=== PATIENT | female | born 1930 | race Caucasian/White ===

== ENCOUNTER 2016-04-30 20:57 | Inpatient (IN) | payer MEDICARE, OTHER ==
[~2016-04-30] VITALS: Ht 167.6 cm; Wt 77.2 kg
[~2016-04-30 20:57] MED LIST: ACET325T11 PO; AMLO10 PO; CALTCHW4 PO; DEPA250T2 PO; DIFFCHW PO; FERR50TA PO; FURO20 PO; LEVO175T2 PO; METO25 PO; NYST100010 SS; OMEP20TA PO; OXYB5TAB PO; PLAV75TA PO; POTA-243 PO; PRAV20TA PO; TAB-TAB PO; TRAZ50TA4 PO; ZYPR5TAB11 PO
[2016-04-30 21:50] LABS: MEAN CORPUSCULAR HGB CONC 29.7 % (32.0-36.0)
--- NOTE | 2016-04-30 21:52 | PD ---
HPI Chief Complaint: Abnormal labs Time Seen by Provider: 21:49 Travel History International Travel<30 days: No Contact w/Intl Traveler<30days: No Traveled to known affect area: No History of Present Illness HPI Patient is an 85 yo female long term resident transferred from [facility] for evaluation of abnormal labs. Patient is mildly agitated and at times combative with nursing staff. No history could be taken from the patient as she is nonverbal. She has a h/o dementia, stroke, hypothyroidism, htn, hypokalemia. Medical history is reviewed from long term records. Labs drawn today at [facility] labs reveal an elevated sodium- 182, chloride- 143, Cr 1.9, and BUN- 67. She was seen 03/03/16 for UTI at [facility] and at the time had a Na 140, Cl 102. Patient's mental status is believed to be unchanged from baseline according to reports from long term staff. Son notes pt usually says hi however hasn't for the past 3 days. He notes she drinks a few drank less than a few ounces of juice over the last 24 hours. Patient has decubitus ulcers over sacrum and both posterior heel. According to long term documentation she is full code. History Past Medical History PNEUMOCCOCAL Vaccine (Year): 3 Menopausal: Yes Social History Alcohol Use: Yes (OCCAS) Tobacco Use: No Allergies-Medications (Allergen,Severity, Reaction): Coded Allergies: Celecoxib (Verified Allergy, Unknown, 05/18/15) Sulfa (Verified Allergy, Unknown, 05/18/15) Aspirin (Verified Adverse Reaction, Intermediate, NOSE BLEEDS, 05/18/15) Thorazine (Verified Adverse Reaction, Intermediate, CRAMPS, 05/18/15) Reported Meds & Prescriptions Reported Meds & Active Scripts Active Zyprexa Zydis (Olanzapine) 5 Mg Tab 5 Mg PO BID 30 Days Depakote 250 mg (Divalproex Sodium) 250 Mg Tab 1 Tab PO BID Reported Mycostatin Susp (Nystatin) 500,000 U/5 Ml Susp 5 Ml SS QID Norvasc (Amlodipine Besylate) 10 Mg Tab 10 Mg PO DAILY Tommy-Sequels (Ferrous Fumarate) 50 Mg Tab 50 Mg PO DAILY Levothyroxine 175 mcg (Levothyroxine Sodium) 175 Mcg Tab 175 Mcg PO DAILY Plavix (Clopidogrel Bisulfate) 75 Mg Tab 75 Mg PO DAILY K-Dur (Potassium Chloride) 10 Meq Tabcr 10 Meq PO DAILY Metoprolol Tartrate 25 mg (Metoprolol Tartrate) 25 Mg Tab 25 Mg PO BID Diff-Stat (Probiotic Product) Chw 1 Tab PO TID Tylenol 325 Mg Tab (Acetaminophen) 325 Mg Tab 650 Mg PO Q6HR PRN Caltrate 600+D (Calcium Carbonate/Cholecalciferol) Chw 1 Tab PO DAILY Multivitamin (Multivitamins) 1 Tab Tab 1 Tab PO DAILY Omeprazole 20 mg (Omeprazole) 20 Mg Tab 20 Mg PO DAILY Lasix (Furosemide) Tab 20 Mg PO DAILY Pravachol 20 Mg Tab 20 Mg PO DAILY Oxybutynin Chloride 5 Mg Tab 5 Mg PO BID Trazodone Hcl (Trazodone HCl) 50 Mg Tab 50 Mg PO HS Review of Systems ROS Limitations: Clinical Condition (dementia), Unresponsive Except as stated in HPI: all other systems reviewed are Neg Physical Exam Exam Limitations: Clinical Condition (Dementia) Narrative GENERAL: Awake, alert, unresponsive to verbal commands, mildly agitated SKIN: Warm and dry. Eschars on posterior heels BL and sacrum, wrapped and dressed with topicals HEAD: Atraumatic. Normocephalic. EYES: Pupils equal and round. No scleral icterus. No injection or drainage. ENT: No nasal bleeding or discharge. Mucous membranes pink and moist. NECK: Trachea midline. No JVD. CARDIOVASCULAR: Regular rate and rhythm. RESPIRATORY: No accessory muscle use. Clear to auscultation. Breath sounds equal bilaterally. GASTROINTESTINAL: Abdomen soft, non-tender, nondistended. Hepatic and splenic margins not palpable. MUSCULOSKELETAL: Extremities without clubbing, cyanosis, or edema. No obvious deformities. NEUROLOGICAL: Awake. Somewhat interactive. Attempts to punch care providers. Non -verbal. PSYCHIATRIC: Nonverbal, mildly agitated, patient's baseline is unclear Data Data Last Documented VS Vital Signs Date Time Temp Pulse Resp B/P Pulse Ox O2 Delivery O2 Flow Rate FiO2 04/30/16 22:29 56 16 96 Nasal Cannula 2 04/30/16 22:26 97.9 101/56 Orders Basic Metabolic Panel (Bmp) (04/30/16 21:49) Complete Blood Count With Diff (04/30/16 21:49) Urinalysis - C+S If Indicated (04/30/16 21:49) Iv Access Insert/Monitor (04/30/16 21:49) Ecg Monitoring (04/30/16 21:49) Oximetry (04/30/16 21:49) Sodium Chloride 0.9% Flush (Ns Flush) (04/30/16 22:00) Urinary Catheter Insert/Apply (04/30/16 21:52) Electrocardiogram (04/30/16 ) Dextrose 5% In [place] 1000ml Inj (D5w 1000 (04/30/16 22:15) Chest, Single Ap (04/30/16 ) Urine Culture (04/30/16 23:25) Ceftriaxone Inj (Rocephin Inj) (04/30/16 23:45) Admit Order (Ed Use Only) (04/30/16 23:42) Labs Laboratory Tests Test 04/30/16 04/30/16 22:10 23:25 White Blood Count 13.8 TH/MM3 Red Blood Count 3.66 MIL/MM3 Hemoglobin 10.8 GM/DL Hematocrit 36.2 % Mean Corpuscular Volume 98.8 FL Mean Corpuscular Hemoglobin 29.4 PG Mean Corpuscular Hemoglobin 29.7 % Concent Red Cell Distribution Width 21.1 % Platelet Count 149 TH/MM3 Mean Platelet Volume 10.4 FL Neutrophils (%) (Auto) 78.7 % Lymphocytes (%) (Auto) 12.2 % Monocytes (%) (Auto) 7.4 % Eosinophils (%) (Auto) 1.3 % Basophils (%) (Auto) 0.4 % Neutrophils # (Auto) 10.8 TH/MM3 Lymphocytes # (Auto) 1.7 TH/MM3 Monocytes # (Auto) 1.0 TH/MM3 Eosinophils # (Auto) 0.2 TH/MM3 Basophils # (Auto) 0.1 TH/MM3 CBC Comment DIFF FINAL Differential Comment Sodium Level 183 MEQ/L Potassium Level 4.7 MEQ/L Chloride Level 147 MEQ/L Carbon Dioxide Level 29.9 MEQ/L Anion Gap 6 MEQ/L Blood Urea Nitrogen 67 MG/DL Creatinine 2.02 MG/DL Estimat Glomerular Filtration 24 ML/MIN Rate Random Glucose 93 MG/DL Calcium Level 8.4 MG/DL Urine Color YELLOW Urine Turbidity HAZY Urine pH 8.0 Urine Specific [place] 1.018 Urine Protein 30 mg/dL Urine Glucose (UA) NEG mg/dL Urine Ketones NEG mg/dL Urine Occult Blood NEG Urine Nitrite POS Urine Bilirubin NEG Urine Urobilinogen LESS THAN 2.0 MG/DL Urine Leukocyte Esterase LARGE Urine RBC 4 /hpf Urine WBC 23 /hpf Urine Squamous Epithelial <1 /hpf Cells Urine Transitional Epithelial <1 /hpf Cells Urine Triple Phosphate OCC /hpf Crystals Urine Bacteria MOD /hpf Urine Mucus FEW /lpf Microscopic Urinalysis Comment CULTURE INDICATED MDM Medical Decision Making Medical Screen Exam Complete: Yes Emergency Medical Condition: Yes Medical Record Reviewed: Yes Differential Diagnosis Hypernatremia, Diabetes insipidus, Renal Failure, UTI Narrative Course Pt appears reasonably comfortable. Repeat CBC BMP ordered. Will administer D5W with 1/2 NS and evaluate response. Will check U/A and EKG for abnormalities. CBC & BMP Diagram 04/30/16 22:10 Neutrophils 78.7% 11 months prior Cr was 0.85 and BUN was 67 The patient will be admitted for management of hypernatremia. She also has a UTI, Rocephin started. The patient was started on D5W at 84 mL/h. Case discussed with Dr Recinos. Diagnosis Primary Impression: Hypernatremia Additional Impressions: Dehydration Acute renal failure Qualified Code: N17.9 - Acute renal failure, unspecified acute renal failure type Admitting Information Admitting Physician Requests: Admit Jaswant Stevens MD Apr 30, 2016 21:51
[2016-04-30] MEDS ORDERED: SODIUM CHLORIDE 0.9% FLUSH 5 ML FLUSH IVF PRN (22:00)
[2016-04-30 22:26] VITALS: BP 101/56; PULSE 55; RESP 16; TEMP 97.9; O2SAT 95
[2016-04-30 22:29] VITALS: RESP 18
[2016-04-30 22:37] LABS: AUTOMATED NEUTROPHIL # 10.8 TH/MM3 (1.8-7.7); BASOPHIL # 0.1 TH/MM3 (0-0.2); BASOPHIL % 0.4 % (0.0-2.0); EOSINOPHIL # 0.2 TH/MM3 (0-0.4); EOSINOPHIL % 1.3 % (0.0-4.0); HEMATOCRIT 36.2 % (35.0-46.0); HEMO FLAGS DIFF FINAL; LYMPH % 12.2 % (9.0-44.0); LYMPHOCYTE # 1.7 TH/MM3 (1.0-4.8); MEAN CELL VOLUME 98.8 FL (80.0-100.0); MEAN CORPUSCULAR HEMOGLOBIN 29.4 PG (27.0-34.0); MONO % 7.4 % (0.0-8.0); NEUT % 78.7 % (16.0-70.0); PLATELET COUNT 149 TH/MM3 (150-450); RED BLOOD COUNT 3.66 MIL/MM3 (4.00-5.30); RED CELL DISTRIBUTION WIDTH 21.1 % (11.6-17.2); WHITE BLOOD COUNT 13.8 TH/MM3 (4.0-11.0)
[2016-04-30 22:55] LABS: BICARBONATE 29.9 MEQ/L (21.0-32.0); POTASSIUM 4.7 MEQ/L (3.5-5.1)
[2016-04-30] MEDS: DEXTROSE 5% IN WATE 1000ML INJ 1,000 ML IV SCH (23:28)
[2016-04-30 23:35] LABS: BACTERIA, URINE MOD /hpf; BLOOD, URINE NEG (NEG); COMMENT (UR) CULTURE INDICATED; CULTURE IF INDICATED CULTURE INDICATED; GLUCOSE,URINE NEG (NEG); KETONE, URINE NEG (NEG); MUCUS URINE FEW /lpf (OCC); NITRITE,URINE POS (NEG); SQUAMOUS EPITHELIAL CELL URINE <1 /hpf (0-5); TRANSITIONAL EPI CELLS, URINE <1 /hpf; TRIPLE PHOSPHATE CRYSTAL,URINE OCC /hpf; URINE COLOR YELLOW (YELLW/STRAW)
[2016-04-30] MEDS ORDERED: cefTRIAXone INJ 1,000 MG in SODIUM CHLORIDE 0.9% INJ 100 ML IV ONE (23:45)
[2016-05-01] VITALS (10 sets, daily range): BP systolic 95–142; BP diastolic 48–70; PULSE 56–98; RESP 16–22; TEMP 96.2–98.1; O2SAT 93–100
--- NOTE | 2016-05-01 00:18 | RADRPT ---
EXAM DATE/TIME: 04/30/2016 23:51 [place] COMPARISON: CHEST SINGLE AP, September 01, 2012, 19:51. INDICATIONS : Evaluate for aspiration. MEDICAL HISTORY : Stroke. SURGICAL HISTORY : None. ENCOUNTER: Initial ACUITY: 1 day PAIN SCORE: Non-responsive. LOCATION: Bilateral chest FINDINGS: There appears to be a small patchy infiltrate in the peripheral right upper lung. Otherwise, the rest of the lungs are grossly clear. No definite pleural effusions. Heart size is stable. There is no payton dence of pneumothorax. CONCLUSION: New Small patchy infiltrate in the peripheral right upper lung. This could indicate aspiration pneumo terrance. Recommend followup chest x-ray in approximately 2-3 weeks to ensure resolution. If this has not resolved in approximately 3 weeks after appropriate medical therapy, then a CT scan of the chest coul d be performed for further evaluation on a nonemergent outpatient basis.. Luis Fernando Black MD on May 01, 2016 at 0:14 Board Certified Radiologist. This report was verified electronically.
[2016-05-01] MEDS ORDERED: LORA-392 PO (00:38)
[2016-05-01] MEDS ORDERED: [UNRECOGNIZED DRUG - CODE] CHEW (00:38)
[2016-05-01] MEDS ORDERED: PRAV10TA PO (00:38)
[2016-05-01] MEDS ORDERED: ZINC220T PO (00:38)
[2016-05-01] MEDS ORDERED: COLA100C3 PO (00:38)
[2016-05-01] MEDS ORDERED: METO25TA3 PO (00:38)
[2016-05-01] MEDS ORDERED: DIVA250T PO (00:38)
[2016-05-01] MEDS ORDERED: MULT-135 PO (00:38)
[2016-05-01] MEDS ORDERED: REME15TA PO (00:38)
[2016-05-01] MEDS ORDERED: LEVA500T PO (00:38)
[2016-05-01] MEDS ORDERED: POTA10CA PO (00:38)
[2016-05-01] MEDS ORDERED: AMLO5TAB2 PO (00:38)
[2016-05-01] MEDS ORDERED: TRAZ50TA12 PO (00:38)
[2016-05-01] MEDS ORDERED: ALBU0.63 NEB (00:38)
[2016-05-01] MEDS ORDERED: LEVO175T2 PO (00:38)
[2016-05-01] MEDS ORDERED: CLOP75TA PO (00:38)
[2016-05-01] MEDS ORDERED: FURO1TAB62 PO (00:38)
[2016-05-01] MEDS ORDERED: OMEP20TA PO (00:38)
[2016-05-01] MEDS ORDERED: AZITHROMYCIN INJ 500 MG in SODIUM CHLOR 0.9% 250 ML INJ 250 ML IV SCH (02:15)
[2016-05-01] MEDS ORDERED: SENNOSIDES 8.6 MG TAB PO PRN (02:15)
[2016-05-01] MEDS ORDERED: SODIUM CHLORIDE 0.9% FLUSH 5 ML FLUSH FLUSH PRN (02:15)
[2016-05-01] MEDS ORDERED: NALOXONE HCL 0.4 MG/ML AMP IV PRN (02:15)
[2016-05-01] MEDS ORDERED: ACETAMINOPHEN 325 MG TAB PO PRN ×2 (02:15)
--- NOTE | 2016-05-01 03:09 | HHI.HP ---
[facility] Admission Diagnosis HyperNa, AMS, AMBROSIO Diagnoses: Chief Complaint: Altered mental status Travel History International Travel<30 Days: No Contact w/Intl Traveler <30 Da: No Traveled to Known Affected Are: No Sepsis Criteria SIRS Criteria (2 or more): WBC > 88543, < 4000 or > 10% bands History of Present Illness The patient is an 85-year-old female with past medical history of dementia who is presenting to the hospital from her assisted facility for worsening mental status and abnormal labs. The patient has been speaking less than usual. She has been acting withdrawn. She was unable to give a history but her son was at the bedside and tried to explain the patient's recent pattern of hospitalization and assisted facilities. The patient's son said that staff at the [place] [facility] were concerned that the patient was silently aspirating. He reports that the patient has not been eating or drinking well lately. He says that the patient has been hospitalized for high sodium levels in the past. The patient's son has thought about the patient obtaining a feeding tube but he does not seem to want to pursue that option at this time. He mentions that the patient has had urinary tract infections before. He mentioned that his mother was on a ventilator for pneumonia when she was in her 70s. The patient was alert but repeating the same words over and over again. She was reluctant to be examined. The patient's son said he has been requesting that the [place] [facility] facility reduce the patient's sedating medications. Review of Systems ROS Limitations: Clinical Condition, Altered Mental Status, Uncooperative, Combative, Poor Historian Constitutional: COMPLAINS OF: Change in appetite Gastrointestinal: COMPLAINS OF: Anorexia Neurologic: COMPLAINS OF: Abnormal gait, Speech Problems Psychiatric: COMPLAINS OF: Confusion Past Family Social History Past Medical History CAD Hypertension CVA GERD Worley's esophagitis Esophageal strictures status post esophageal dilation Dementia Bipolar disorder Past Surgical History Total left knee arthroplasty Thyroidectomy Appendectomy Cholecystectomy Hysterectomy Serafin fundoplication EGD with esophageal dilation Allergies: Coded Allergies: Celecoxib (Verified Allergy, Unknown, 05/18/15) Sulfa (Verified Allergy, Unknown, 05/18/15) Aspirin (Verified Adverse Reaction, Intermediate, NOSE BLEEDS, 05/18/15) Thorazine (Verified Adverse Reaction, Intermediate, CRAMPS, 05/18/15) Active Ordered Medications Current Medications Medications (Trade) Dose Ordered Sig/Db Route Start Time Stop Time Status Last Admin Dextrose 1,000 ml @ 125 mls/hr Q8H IV 04/30/16 22:15 04/30/16 23:28 (Cleocin Inj/NS Inj) 104 ml @ 208 mls/hr Q8H IV 05/01/16 03:00 (Plavix) 75 mg DAILY PO 05/01/16 09:00 (Depakote Dr) 250 mg BID PO 05/01/16 09:00 (Colace) 100 mg BID PO 05/01/16 09:00 (Protonix) 20 mg DAILY PO 05/01/16 09:00 (Pravachol) 10 mg DAILY PO 05/01/16 09:00 (Synthroid) 100 mcg DAILY@06 PO 05/01/16 06:00 (NS Flush) 2 ml UNSCH PRN FLUSH 05/01/16 02:15 (NS Flush) 2 ml BID FLUSH 05/01/16 09:00 (Tylenol) 650 mg Q4H PRN PO 05/01/16 02:15 (Senokot) 17.2 mg Q12H PRN PO 05/01/16 02:15 (Heparin Inj) 5,000 units Q8H SQ 05/01/16 04:00 (Tylenol) 650 mg Q6H PRN PO 05/01/16 02:15 (Narcan Inj) 0.4 mg UNSCH PRN IV 05/01/16 02:15 (Synthroid) 100 mcg DAILY@06 PO 05/01/16 06:00 Family History Unable to obtain at this time. Social History Unable to obtain at this time. Physical Exam Vital Signs Vital Signs Date Time Temp Pulse Resp B/P Pulse Ox O2 Delivery O2 Flow Rate FiO2 05/01/16 01:51 56 16 95/56 100 Nasal Cannula 3 04/30/16 22:29 56 16 96 Nasal Cannula 2 04/30/16 22:29 18 04/30/16 22:26 97.9 55 16 101/56 95 Physical Exam GENERAL: Awake, alert, unresponsive to verbal commands, mildly agitated. SKIN: Warm and dry. Eschars on posterior heels BL and sacrum, wrapped and dressed. HEAD: Atraumatic. Normocephalic. EYES: Pupils equal and round. No scleral icterus. No injection or drainage. ENT: No nasal bleeding or discharge. Mucous membranes pink and moist. NECK: Trachea midline. No JVD. CARDIOVASCULAR: Bradycardic, no murmur appreciated. RESPIRATORY: No accessory muscle use. Clear to auscultation. Breath sounds equal bilaterally. GASTROINTESTINAL: Abdomen soft, non-tender, nondistended. Hepatic and splenic margins not palpable. MUSCULOSKELETAL: Extremities without clubbing, cyanosis, or edema. LLE contracted. NEUROLOGICAL: Awake. Repeats the same words over and over. Attempts to punch care providers. PSYCHIATRIC: Agitated. Laboratory Laboratory Tests Test 04/30/16 04/30/16 22:10 23:25 White Blood Count 13.8 Red Blood Count 3.66 Hemoglobin 10.8 Hematocrit 36.2 Mean Corpuscular Volume 98.8 Mean Corpuscular Hemoglobin 29.4 Mean Corpuscular Hemoglobin 29.7 Concent Red Cell Distribution Width 21.1 Platelet Count 149 Mean Platelet Volume 10.4 Neutrophils (%) (Auto) 78.7 Lymphocytes (%) (Auto) 12.2 Monocytes (%) (Auto) 7.4 Eosinophils (%) (Auto) 1.3 Basophils (%) (Auto) 0.4 Neutrophils # (Auto) 10.8 Lymphocytes # (Auto) 1.7 Monocytes # (Auto) 1.0 Eosinophils # (Auto) 0.2 Basophils # (Auto) 0.1 CBC Comment DIFF FINAL Differential Comment Sodium Level 183 Potassium Level 4.7 Chloride Level 147 Carbon Dioxide Level 29.9 Anion Gap 6 Blood Urea Nitrogen 67 Creatinine 2.02 Estimat Glomerular Filtration 24 Rate Random Glucose 93 Calcium Level 8.4 Urine Color YELLOW Urine Turbidity HAZY Urine pH 8.0 Urine Specific [place] 1.018 Urine Protein 30 Urine Glucose (UA) NEG Urine Ketones NEG Urine Occult Blood NEG Urine Nitrite POS Urine Bilirubin NEG Urine Urobilinogen LESS THAN 2.0 Urine Leukocyte Esterase LARGE Urine RBC 4 Urine WBC 23 Urine Squamous Epithelial <1 Cells Urine Transitional Epithelial <1 Cells Urine Triple Phosphate OCC Crystals Urine Bacteria MOD Urine Mucus FEW Microscopic Urinalysis Comment CULTURE INDICATED Date/Time Procedure Status Source Growth 04/30/16 23:25 Urine Culture Received Urine Clean Catch Pending Result Diagram: 04/30/16 2210 04/30/16 2210 Imaging Last Impressions Chest X-Ray 04/30/16 0000 Signed Impressions: Service Date/Time: Saturday, April 30, 2016 23:51 - CONCLUSION: New Small patchy infiltrate in the peripheral right upper lung. This could indicate aspiration pneumonia. Recommend followup chest x-ray in approximately 2-3 weeks to ensure resolution. If this has not resolved in approximately 3 weeks after appropriate medical therapy, then a CT scan of the chest could be performed for further evaluation on a nonemergent outpatient basis.. Luis Fernando Black MD Assessment and Plan Assessment and Plan Failure to thrive/ hypernatremia The pt presents with a sodium level of 183. She has not been eating or drinking well. She has progressive dementia and has been hospitalized frequently over the past two years. There is concern for aspiration. - D5W. - PT/OT/ST. - follow BMP. - would recommend a palliative care consult. - case management consult. Aspiration pneumonia CXR with infiltrate in right upper lung. The pt has progressive dementia. - start clindamycin. - pt is currently NPO and awaiting a swallow evaluation. - blood culture x 2. - sputum culture and gram stain. UTI The pt has a history of UTIs. UA is indicative of infection. - continue ceftriaxone. - follow urine culture. Acute renal failure Prerenal s/t decreased PO intake. - IVFs. - follow BMP and avoid nephrotoxic agents. Hypotension S/t dehydration. - hold antihypertensive including Lasix. - IVFs. PPx: Heparin Code Status DNR Discussed Condition With Pt's son, Dr. Stevens. Physician Certification 2 Midnight Certification Type: Admission for Inpatient Services Order for Inpatient Services The services are ordered in accordance with Medicare regulations or non- Medicare payer requirements, as applicable. In the case of services not specified as inpatient-only, they are appropriately provided as inpatient services in accordance with the 2-midnight benchmark. Estimated LOS (days): 2 days is the estimated time the patient will need to remain in the hospital, assuming treatment plan goals are met and no additional complications. Post-Hospital Plan: SNF Rodriguez Recinos DO May 01, 2016 03:09
[2016-05-01] MEDS ORDERED: LORazepam 0.5 MG TAB PO PRN ×2 (03:15)
[2016-05-01] MEDS: CLINDAMYCIN INJ 600 MG in SODIUM CHLORIDE 0.9% INJ 100 ML IV SCH ×3 (03:40→18:27)
[2016-05-01] MEDS: HEPARIN SODIUM - SQ 10,000 UNITS/ML VIAL SQ SCH ×3 (03:41→23:19)
[2016-05-01] MEDS: LEVOTHYROXINE SODIUM 100 MCG TAB PO SCH (05:49)
[2016-05-01] MEDS: LEVOTHYROXINE SODIUM 75 MCG TAB PO SCH (05:49)
[2016-05-01 06:38] LABS: AUTOMATED NEUTROPHIL # 10.9 TH/MM3 (1.8-7.7); BASOPHIL # 0.1 TH/MM3 (0-0.2); BASOPHIL % 0.4 % (0.0-2.0); EOSINOPHIL # 0.2 TH/MM3 (0-0.4); EOSINOPHIL % 1.2 % (0.0-4.0); HEMATOCRIT 34.3 % (35.0-46.0); LYMPH % 12.3 % (9.0-44.0); LYMPHOCYTE # 1.7 TH/MM3 (1.0-4.8); MEAN CELL VOLUME 93.8 FL (80.0-100.0); MEAN CORPUSCULAR HEMOGLOBIN 29.1 PG (27.0-34.0); MEAN CORPUSCULAR HGB CONC 31.1 % (32.0-36.0); MONO % 7.4 % (0.0-8.0); NEUT % 78.7 % (16.0-70.0); PLATELET COUNT 126 TH/MM3 (150-450); RED BLOOD COUNT 3.65 MIL/MM3 (4.00-5.30); RED CELL DISTRIBUTION WIDTH 20.1 % (11.6-17.2); WHITE BLOOD COUNT 13.9 TH/MM3 (4.0-11.0)
[2016-05-01 06:39] LABS: HEMO FLAGS AUTO DIFF
[2016-05-01 07:10] LABS: BICARBONATE 28.6 MEQ/L (21.0-32.0); POTASSIUM 3.9 MEQ/L (3.5-5.1)
[2016-05-01] MEDS: DEXTROSE 5% IN WATE 1000ML INJ 1,000 ML IV SCH ×2 (07:31→17:03)
[2016-05-01 07:55] LABS: BANDS 3 % (0-6); CORRECTED NUCLEATED RBC 1 /100 WBC (0-0); METAMYELOCYTES 1 % (0-1); MYELOCYTES 1 % (0-0); NEUTROPHIL # MANUAL DIFF 10.7 TH/MM3 (1.8-7.7); POLYS (SEG NEUTROPHILS) 72 % (16-70); WBC DIFF SAMPLE 100
[2016-05-01 07:57] LABS: PLATELET ESTIMATE SMEAR LOW (NORMAL); PLATELET MORPHOLOGY NORMAL (NORMAL); SCAN/DIFF FINAL DIFF MANUAL
[2016-05-01] MEDS: PRAVASTATIN SOD 10 MG TAB PO SCH (09:00)
[2016-05-01] MEDS: PANTOPRAZOLE SOD 20 MG DELAYED RELEASE TAB PO SCH (09:00)
[2016-05-01] MEDS: SODIUM CHLORIDE 0.9% FLUSH 5 ML FLUSH FLUSH SCH ×2 (09:00→21:00)
[2016-05-01] MEDS: CLOPIDOGREL 75 MG TAB PO SCH (09:00)
[2016-05-01] MEDS: DIVALPROEX SODIUM DELAYED RELEASE 250 MG TAB PO SCH ×2 (09:00→21:00)
[2016-05-01] MEDS: DOCUSATE SODIUM 100 MG CAP PO SCH ×2 (09:00→21:00)
--- NOTE | 2016-05-01 09:21 | HHI.PR ---
Addendum to Inpatient Note Additional Information will adjust D5w rate to 100cc/hr with BMP monitoring q12h to make sure correction of sodium doesn't go beyond 10mg/24h Jose Chowdhury MD May 01, 2016 09:21
--- NOTE | 2016-05-01 17:18 | EKG ---
Date Performed: 04/30/2016 Time Performed: 22:31:02 PTAGE: 85 years EKG: SUPRAVENTRICULAR BRADYCARDIA NONSPECIFIC T-WAVE ABNORMALITY Significant baseline artifact p recluding any further interpretation. Repeat EKG suggested. ABNORMAL RHYTHM ECG PREVIOUS TRACING : 05/21/2015 13.54.32 DOCTOR: Kelly Hoffmann Interpretating Date/Time 05/01/2016 17:17:21
[2016-05-01 21:46] LABS: BICARBONATE 29.8 MEQ/L (21.0-32.0); POTASSIUM 3.7 MEQ/L (3.5-5.1)
[2016-05-01] MEDS: POVIDONE IODINE 10% OINT 30 GM TUBE TOPICAL SCH (23:22)
[2016-05-01] MEDS: cefTRIAXone INJ 1,000 MG in SODIUM CHLORIDE 0.9% INJ 100 ML IV SCH (23:22)
[2016-05-02] VITALS: BP 117/53; PULSE 65; RESP 16; TEMP 96.8; O2SAT 90
[2016-05-02] MEDS: SODIUM HYPOCHLORITE 0.125% 500 ML BTL TOPICAL SCH ×3 (00:03→21:02)
[2016-05-02 04:02] VITALS: BP 96/58; PULSE 64; RESP 16; TEMP 96; O2SAT 97
[2016-05-02] MEDS: CLINDAMYCIN INJ 600 MG in SODIUM CHLORIDE 0.9% INJ 100 ML IV SCH ×3 (04:16→20:54)
[2016-05-02] MEDS: HEPARIN SODIUM - SQ 10,000 UNITS/ML VIAL SQ SCH ×3 (04:16→20:54)
[2016-05-02] MEDS: DEXTROSE 5% IN WATE 1000ML INJ 1,000 ML IV SCH ×2 (05:00→20:56)
[2016-05-02] MEDS: LEVOTHYROXINE SODIUM 100 MCG TAB PO SCH (06:00)
[2016-05-02] MEDS: LEVOTHYROXINE SODIUM 75 MCG TAB PO SCH (06:00)
[2016-05-02 07:37] LABS: BICARBONATE 27.4 MEQ/L (21.0-32.0); POTASSIUM 3.7 MEQ/L (3.5-5.1)
[2016-05-02 08:00] VITALS: BP 142/79; PULSE 89; RESP 16; TEMP 97.4; O2SAT 93
[2016-05-02] MEDS: CLOPIDOGREL 75 MG TAB PO SCH (09:00)
[2016-05-02] MEDS: PANTOPRAZOLE SOD 20 MG DELAYED RELEASE TAB PO SCH (09:00)
[2016-05-02] MEDS: DIVALPROEX SODIUM DELAYED RELEASE 250 MG TAB PO SCH ×2 (09:00→22:20)
[2016-05-02] MEDS: DOCUSATE SODIUM 100 MG CAP PO SCH ×2 (09:00→22:20)
[2016-05-02] MEDS: PRAVASTATIN SOD 10 MG TAB PO SCH (09:00)
[2016-05-02] MEDS: SODIUM CHLORIDE 0.9% FLUSH 5 ML FLUSH FLUSH SCH ×2 (09:00→20:56)
[2016-05-02 12:00] VITALS: BP 108/48; PULSE 63; RESP 18; TEMP 97.2
[2016-05-02] MEDS: POVIDONE IODINE 10% OINT 30 GM TUBE TOPICAL SCH (13:03)
--- NOTE | 2016-05-02 15:52 | HHI.PR ---
Subjective Remarks pt in bed , in restrain due to trying to pull out her lines afebrile sodium trending down , 172 today d/w nurse , we will cont hydration , regular bmp check , correction not to exceed 8-10 mmol /24 hours Objective Vitals Vital Signs Date Time Temp Pulse Resp B/P Pulse Ox O2 Delivery O2 Flow Rate FiO2 05/02/16 12:00 97.2 63 18 108/48 05/02/16 08:00 97.4 89 16 142/79 93 05/02/16 07:58 Nasal Cannula 2.00 05/02/16 04:02 96.0 64 16 96/58 97 05/02/16 00:00 96.8 65 16 117/53 90 05/01/16 20:49 96 Nasal Cannula 2.00 05/01/16 20:00 96.9 98 18 96/70 93 05/01/16 16:16 98.1 88 22 95/49 93 I/O 05/01/16 05/01/16 05/01/16 05/02/16 05/02/16 05/02/16 06:59 14:59 22:59 06:59 14:59 22:59 Intake Total 0 ml 1566 ml Output Total 600 ml 550 ml 300 ml Balance -600 ml -550 ml 1266 ml Intake Oral 0 ml 0 ml IV Total 1566 ml Output Urine Total 600 ml 550 ml 300 ml # Bowel Movements 0 0 Result Diagram: 05/01/16 0551 05/02/16 0630 Objective Remarks GENERAL: This is frail eldely pt , in nad skin : multiple wound on LEs CARDIOVASCULAR: Regular rate and rhythm without murmurs, gallops, or rubs. RESPIRATORY: Clear to auscultation. Breath sounds equal bilaterally. No wheezes , rales, or rhonchi. GASTROINTESTINAL: Abdomen soft, non-tender, nondistended. Normal active bowel sounds MUSCULOSKELETAL: Extremities without clubbing, cyanosis, or edema. NEURO: Alert not answering qs , seem to be agitated , some inappropriate talk , LEs A/P Assessment and Plan Failure to thrive/ hypernatremia The pt presents with a sodium level of 183. mostly poor oral intake , poor acess to water . She has progressive dementia and has been hospitalized frequently over the past two years. There is concern for aspiration. - D5W. BMP q8h , correction should not exceed 8-10 mmol/24 h - PT/OT/ST.. - recommend a palliative care consult. - case management consult. Aspiration pneumonia CXR with infiltrate in right upper lung. The pt has progressive dementia. - start clindamycin. - pt is currently NPO , ff swallow evaluation. - blood culture x 2. - sputum culture and gram stain. UTI The pt has a history of UTIs. UA is indicative of infection. - continue ceftriaxone. - follow urine culture. Acute renal failure Prerenal s/t decreased PO intake. - IVFs. - follow BMP and avoid nephrotoxic agents. Hypotension S/t dehydration. - hold antihypertensive including Lasix. - IVFs. PPx: Heparin Jose Chowdhury MD May 02, 2016 15:52
[2016-05-02 16:00] VITALS: BP 102/60; PULSE 61; RESP 16; TEMP 97.1; O2SAT 93
[2016-05-02 19:50] LABS: BICARBONATE 29.6 MEQ/L (21.0-32.0); POTASSIUM 3.6 MEQ/L (3.5-5.1)
[2016-05-02 21:24] VITALS: BP 120/65; PULSE 77; RESP 16; TEMP 96.2; O2SAT 94
[2016-05-02] MEDS: cefTRIAXone INJ 1,000 MG in SODIUM CHLORIDE 0.9% INJ 100 ML IV SCH (22:52)
[2016-05-03] VITALS (8 sets, daily range): BP systolic 97–130; BP diastolic 48–81; PULSE 61–122; RESP 16–18; TEMP 95.3–97.4; O2SAT 92–98
[2016-05-03 01:04] LABS: BICARBONATE 27.4 MEQ/L (21.0-32.0); POTASSIUM 3.9 MEQ/L (3.5-5.1)
[2016-05-03] MEDS ORDERED: DEXTROSE 5% IV SCH ×6 (01:37→23:00)
[2016-05-03] MEDS ORDERED: WATER IV SCH ×6 (01:37→23:00)
[2016-05-03] MEDS ORDERED: CLINDAMYCIN IV SCH ×2 (01:37)
[2016-05-03] MEDS ORDERED: CEFTRIAXONE IV SCH ×4 (01:38→23:00)
[2016-05-03] MEDS: DEXTROSE 5% IV SCH ×6 (02:54→19:00)
[2016-05-03] MEDS: CLINDAMYCIN IV SCH ×6 (02:54→19:00)
[2016-05-03] MEDS: WATER IV SCH ×6 (02:54→19:00)
[2016-05-03] MEDS: LEVOTHYROXINE SODIUM 100 MCG TAB PO SCH (05:52)
[2016-05-03] MEDS: LEVOTHYROXINE SODIUM 75 MCG TAB PO SCH (05:52)
[2016-05-03] MEDS: HEPARIN SODIUM - SQ 10,000 UNITS/ML VIAL SQ SCH ×3 (05:53→21:17)
[2016-05-03] MEDS ORDERED: DOCUSATE SODIUM 100 MG CAP PO PRN (07:45)
[2016-05-03] MEDS ORDERED: BISACODYL 10 MG SUPP PR PRN (07:45)
[2016-05-03] MEDS ORDERED: LACTULOSE SYRUP 20 GM/30 ML CUP PO PRN (07:45)
[2016-05-03] MEDS ORDERED: RESP: ALBUTEROL 0.63 MG/3 ML NEB (PRN) NEB (07:45)
[2016-05-03] MEDS: PRAVASTATIN SOD 10 MG TAB PO SCH (08:41)
[2016-05-03] MEDS: DOCUSATE SODIUM 50 MG/SENNA 8.6 MG TAB PO SCH ×2 (08:41→21:16)
[2016-05-03] MEDS: POLYETHYLENE GLYCOL 17 GM PKG PO SCH (08:42)
[2016-05-03] MEDS: SODIUM HYPOCHLORITE 0.125% 500 ML BTL TOPICAL SCH ×2 (08:42→22:39)
[2016-05-03] MEDS: DIVALPROEX SODIUM DELAYED RELEASE 250 MG TAB PO SCH ×2 (08:42→22:31)
[2016-05-03] MEDS: PANTOPRAZOLE SOD 20 MG DELAYED RELEASE TAB PO SCH (08:42)
[2016-05-03] MEDS: CLOPIDOGREL 75 MG TAB PO SCH (08:42)
[2016-05-03] MEDS: SODIUM CHLORIDE 0.9% FLUSH 5 ML FLUSH FLUSH SCH ×2 (08:43→20:10)
--- NOTE | 2016-05-03 10:09 | HHI.PR ---
Subjective Remarks Follow-up encephalopathy. She is awake today. She is talking but confused. She moves all extremities. Discussed with son wants to continue aggressive treatment despite multiple medical conditions specially dementia with poor quality of life. Discussed with RN and case management Objective Vitals Vital Signs Date Time Temp Pulse Resp B/P Pulse Ox O2 Delivery O2 Flow Rate FiO2 05/03/16 08:00 95.9 62 16 106/48 96 05/03/16 06:57 95 05/03/16 05:48 96.1 68 16 128/66 95 05/03/16 00:22 95.4 62 16 97/61 92 05/02/16 21:24 96.2 77 16 120/65 94 05/02/16 16:00 97.1 61 16 102/60 93 05/02/16 12:00 97.2 63 18 108/48 I/O 05/02/16 05/02/16 05/02/16 05/03/16 05/03/16 05/03/16 07:00 15:00 23:00 07:00 15:00 23:00 Intake Total 1566 ml 0 ml 350 ml 1750 ml Output Total 300 ml 900 ml 400 ml 400 ml Balance 1266 ml -900 ml -50 ml 1350 ml Intake Oral 0 ml 0 ml 350 ml 0 ml IV Total 1566 ml 1750 ml Output Urine Total 300 ml 900 ml 400 ml 400 ml # Bowel Movements 0 0 Result Diagram: 05/01/16 0551 05/02/16 2353 Imaging Last Impressions Chest X-Ray 04/30/16 0000 Signed Impressions: Service Date/Time: Saturday, April 30, 2016 23:51 - CONCLUSION: New Small patchy infiltrate in the peripheral right upper lung. This could indicate aspiration pneumonia. Recommend followup chest x-ray in approximately 2-3 weeks to ensure resolution. If this has not resolved in approximately 3 weeks after appropriate medical therapy, then a CT scan of the chest could be performed for further evaluation on a nonemergent outpatient basis.. Luis Fernando Black MD Objective Remarks GENERAL: This is frail eldely pt , in nad skin : multiple wound on LEs CARDIOVASCULAR: Regular rate and rhythm without murmurs, gallops, or rubs. RESPIRATORY: Clear to auscultation. Breath sounds equal bilaterally. No wheezes , rales, or rhonchi. GASTROINTESTINAL: Abdomen soft, non-tender, nondistended. Normal active bowel sounds MUSCULOSKELETAL: Extremities without clubbing, cyanosis, or edema. RUE swollen from IVF NEURO: Awake and talking but confused. Moves all ext Procedures None A/P Assessment and Plan Failure to thrive/ hypernatremia The pt presents with a sodium level of 183. mostly poor oral intake , poor access to water . She has progressive dementia and has been hospitalized frequently over the past two years. There is concern for aspiration. - D5W correction should not exceed 8-10 mmol/24 h and follow BMP - PT/OT/ST. - Palliative care consult. - case management consult. Aspiration pneumonia with sepsis (elevated heart rate, respiratory rate and white count) CXR with infiltrate in right upper lung. The pt has progressive dementia. -Continue clindamycin. -Pured diet, aspiration precautions - blood culture x 2 negative to date. - sputum culture and gram stain. UTI The pt has a history of UTIs. UA is indicative of infection. Culture growing gram-negative braulio - continue ceftriaxone. Acute renal failure on chronic kidney disease stage II Prerenal s/t decreased PO intake. - IVFs. - follow BMP and avoid nephrotoxic agents. Hypotension S/t dehydration. - hold antihypertensive including Lasix. - IVFs. Sacral decubitus. Wound care. Keep [place] catheter PPx: Heparin Discharge Planning Not ready for discharge Obinna Buenrostro MD May 03, 2016 10:09
--- NOTE | 2016-05-03 14:32 | PD.CONS ---
Consult Service Palliative Care Consult Requested By Dr. Buenrostro Primary Care Physician Unknown Reason for Consultation a. To assist with evaluation and management of symptoms including: b. To assist medical decision maker(s) with: better understanding of current medical conditions; weighing benefits/burdens of medical treatment options; making medical treatment decisions. HPI History of Present Illness Patient is a 85-year-old female with a past medical history significant for but not limited to: Hypertension, CAD, CVA, GERD, Worely's esophagitis, esophageal stricture status post esophageal dilation, dementia, bipolar surgery. [facility] is a [facility], who 3 days prior to hospitalization has been drinking only a few ounces of juice. Patient has a recent hospitalization in [facility] in [facility] for UTI and hyponatremia. She was brought in from the nursing facility due to [place] for abnormal labs( sodium of 182, chloride 143, creatinine is 1.19) on 04/30/2016. In the ER: * Temperature is 97.9, pulse is 55, respirations 16, BP is 101/56, pulse ox is 95% * WBC is 13.8, hemoglobin is 10.8, hematocrit is 36.2, platelet is 149 * Sodium is 183, potassium is 4.7, chloride is 147, bicarbonate is 29.9, BUN 67 , creatinine is 2.02 * UA shows large amount of leukocyte esterase, positive urine nitrite and culture was indicated * Culture was collected and did grow gram-negative tanner. * Chest x-ray shows new small patchy infiltrate in the peripheral right upper lung. * Patient was admitted to the hospital for hypernatremia, UTI, and suspected aspiration pneumonia. Rocephin was started patient was given IV fluids and was admitted to the hospitalist services. While the hospital patient, IV fluids was continue, and patient's sodium level has slowly trended down from 183-169. Patient continued to be treated for Rocephin. Medical team has spoken with patient's son and he endorsed that patient had been intubated on the ventilator in the past when she was in her 70s. Attending physician had discuss with patient's son about PEG tube feedings in which he was not too keen on. Patient is a DNR currently. Course of hospitalization has been complicated by agitation in which patient needed to be restrained. Speech eval was ordered and patient was found to able to tolerate on pure and honey consistency thickened liquids. However given patient's dementia, multiple hospitalization, and aspiration with the likelihood that she may aspirate again palliative care was consulted to review goals of care with son. On my visit today patient was sleeping, but easily awakened. Seems to have some hearing deficits, not able to answer much questions, only give one-word answers that does not make any sense. Patient currently on restraints but not agitated. Given that patient's has dementia she is not able to really endorse or give a good history. Unable to really follow directions. Function/Cognitive Trajectory . Patient has been declining, with severe dementia that has been back and forth from the hospital to the nursing facility. Review of Systems ROS Limitations: Clinical Condition (Alzheimer's disease) Constitutional: COMPLAINS OF: Weight loss Respiratory: COMPLAINS OF: Cough, Shortness of breath Psychiatric: COMPLAINS OF: Agitation (dementia) Past Family Social History Coded Allergies: Celecoxib (Verified Allergy, Unknown, 05/01/16) Haloperidol (Verified Allergy, Unknown, 05/01/16) Risperidone (Verified Allergy, Unknown, 05/01/16) Sulfa (Verified Allergy, Unknown, 05/01/16) Aspirin (Verified Adverse Reaction, Intermediate, NOSE BLEEDS, 05/01/16) Thorazine (Verified Adverse Reaction, Intermediate, CRAMPS, 05/01/16) Past Medical History CAD Hypertension CVA GERD Worley's esophagitis Esophageal strictures status post esophageal dilation Dementia Bipolar disorder Past Surgical History Total left knee arthroplasty Thyroidectomy Appendectomy Cholecystectomy Hysterectomy Serafin fundoplication EGD with esophageal dilation Reported Medications Mycostatin Susp (Nystatin) 500,000 U/5 Ml Susp 5 Ml SS QID Norvasc (Amlodipine Besylate) 10 Mg Tab 10 Mg PO DAILY Tommy-Sequels (Ferrous Fumarate) 50 Mg Tab 50 Mg PO DAILY Levothyroxine 175 mcg (Levothyroxine Sodium) 175 Mcg Tab 175 Mcg PO DAILY Plavix (Clopidogrel Bisulfate) 75 Mg Tab 75 Mg PO DAILY K-Dur (Potassium Chloride) 10 Meq Tabcr 10 Meq PO DAILY Metoprolol Tartrate 25 mg (Metoprolol Tartrate) 25 Mg Tab 25 Mg PO BID Diff-Stat (Probiotic Product) Chw 1 Tab PO TID Tylenol 325 Mg Tab (Acetaminophen) 325 Mg Tab 650 Mg PO Q6HR PRN Caltrate 600+D (Calcium Carbonate/Cholecalciferol) Chw 1 Tab PO DAILY Multivitamin (Multivitamins) 1 Tab Tab 1 Tab PO DAILY Omeprazole 20 mg (Omeprazole) 20 Mg Tab 20 Mg PO DAILY Lasix (Furosemide) Tab 20 Mg PO DAILY Pravachol 20 Mg Tab 20 Mg PO DAILY Oxybutynin Chloride 5 Mg Tab 5 Mg PO BID Trazodone Hcl (Trazodone HCl) 50 Mg Tab 50 Mg PO HS Current Medications Medications (Trade) Dose Ordered Sig/Db Route Start Time Stop Time Status Last Admin (D5W 1000 ml Inj) 1,000 ml @ 100 mls/hr Q10H IV 04/30/16 22:15 05/02/16 20:56 (Plavix) 75 mg DAILY PO 05/01/16 09:00 05/03/16 08:42 (Depakote Dr) 250 mg BID PO 05/01/16 09:00 05/02/16 22:20 (Protonix) 20 mg DAILY PO 05/01/16 09:00 (Pravachol) 10 mg DAILY PO 05/01/16 09:00 05/03/16 08:41 (Synthroid) 100 mcg DAILY@06 PO 05/01/16 06:00 05/03/16 05:52 (NS Flush) 2 ml UNSCH PRN FLUSH 05/01/16 02:15 (NS Flush) 2 ml BID FLUSH 05/01/16 09:00 (Tylenol) 650 mg Q4H PRN PO 05/01/16 02:15 (Senokot) 17.2 mg Q12H PRN PO 05/01/16 02:15 (Heparin Inj) 5,000 units Q8H SQ 05/01/16 04:00 05/03/16 05:53 (Tylenol) 650 mg Q6H PRN PO 05/01/16 02:15 (Narcan Inj) 0.4 mg UNSCH PRN IV 05/01/16 02:15 (Ativan) 0.5 mg Q12H PRN PO 05/01/16 03:15 Sodium Hypochlorite 500 ml 500 ml BID TOPICAL 05/01/16 21:00 05/03/16 08:42 Clindamycin Phosphate 600 mg/ Dextrose 104 ml @ 208 mls/hr Q8H IV 05/03/16 03:00 05/03/16 02:54 (Rocephin Inj/ D5W 100 ml Inj) 100 ml @ 200 mls/hr Q24H IV 05/03/16 23:00 (Colace) 100 mg BID PRN PO 05/03/16 07:45 (Peggy-Colace) 2 tab BID PO 05/03/16 09:00 05/03/16 08:41 (Lactulose Liq) 30 ml TID PRN PO 05/03/16 07:45 (Miralax) 17 gm DAILY PO 05/03/16 09:00 05/03/16 08:42 (Dulcolax Supp) 10 mg DAILY PRN LA 05/03/16 07:45 (Synthroid) 75 mcg DAILY@0600 PO 05/04/16 06:00 (Remeron) 15 mg HS PO 05/03/16 21:00 Family History Unable to obtain at this time. Substance Use Unable to elicit from patient, this is per medical records Tobacco: No Alcohol: Yes occasional Prescription med abuse: No Illicits: No Psychosocial History Has a son, has been note of the facility. Appears due to patient's dementia has struck out at screeners in the hospital in the past. Patient is listed as college educated, and was in the Spiritual/Cultural Factors Confucianist Living Will: Completed, but not made available Health Care Surrogate: Completed, but not made available Durable Power of Mat Maker: Completed, but not made available Physical Exam Vital Signs Date Time Temp Pulse Resp B/P Pulse Ox O2 Delivery O2 Flow Rate FiO2 05/03/16 12:00 97.4 105 18 130/81 94 05/03/16 08:00 95.9 62 16 106/48 96 05/03/16 06:57 95 05/03/16 05:48 96.1 68 16 128/66 95 05/03/16 00:22 95.4 62 16 97/61 92 05/02/16 21:24 96.2 77 16 120/65 94 05/02/16 16:00 97.1 61 16 102/60 93 05/02/16 05/03/16 19:00 07:00 Intake Total 0 ml 2100 ml Output Total 900 ml 800 ml Balance -900 ml 1300 ml Intake Oral 0 ml 350 ml IV Total 1750 ml Output Urine Total 900 ml 800 ml # Bowel Movements 0 Exam CONSTITUTIONAL/GENERAL: This is frail elderly lady in restraints. no agitated, spoke only 2 words, non-sensicle. TUBES/LINES/DRAINS:piv, woods. SKIN: No jaundice, rashes, or lesions. Ecchymoses on upper extremities. No wounds seen anteriorly. HEAD: Atraumatic. Normocephalic. EYES: Pupils equal and round and reactive. Extraocular motions intact. No scleral icterus. No injection or drainage. 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 Nose without bleeding or purulent drainage. Throat without visible erythema, exudates, masses, or lesions. NECK: Trachea midline. Supple, nontender. No palpable thyroid enlargement or nodularity. CARDIOVASCULAR: Regular rate and rhythm without murmurs, gallops, or rubs. No JVD. Peripheral pulses symmetric. RESPIRATORY/CHEST: Symmetric, unlabored respirations. Clear to auscultation. Breath sounds equal bilaterally. No wheezes, rales, or rhonchi. GASTROINTESTINAL: Abdomen soft, non-tender, nondistended. No hepato-splenomegaly , or palpable masses. No guarding. Bowel sounds present. GENITOURINARY: Without palpable bladder distension. Woods catheter in place. MUSCULOSKELETAL: Extremities without clubbing, cyanosis, or edema. No joint tenderness or effusion noted. No calf tenderness. No mottling or clubbing. LYMPHATICS: No palpable cervical or supraclavicular adenopathy. NEUROLOGICAL: Awake and alert. Motor and sensory grossly within normal limits. confused PSYCHIATRIC: No obvious anxiety/depression, agitation. Diagnostic Tests Laboratory Laboratory Tests Test 04/30/16 04/30/16 05/01/16 05/01/16 22:10 23:25 05:51 20:55 Sodium Level 183 MEQ/L 181 MEQ/L 175 MEQ/L (136-145) (136-145) (136-145) Potassium Level 4.7 MEQ/L 3.9 MEQ/L 3.7 MEQ/L (3.5-5.1) (3.5-5.1) (3.5-5.1) Chloride Level 147 MEQ/L 145 MEQ/L 139 MEQ/L (98-107) (98-107) (98-107) Carbon Dioxide Level 29.9 MEQ/L 28.6 MEQ/L 29.8 MEQ/L (21.0-32.0) (21.0-32.0) (21.0-32.0) Anion Gap 6 MEQ/L (5-15) 7 MEQ/L (5-15) 6 MEQ/L (5-15) Blood Urea Nitrogen 67 MG/DL (7-18) 63 MG/DL (7-18) 57 MG/DL (7-18) Creatinine 2.02 MG/DL 1.82 MG/DL 1.66 MG/DL (0.50-1.00) (0.50-1.00) (0.50-1.00) Estimat Glomerular Filtration 24 ML/MIN (>89) 27 ML/MIN (>89) 30 ML/MIN (>89) Rate Random Glucose 93 MG/DL 114 MG/DL 88 MG/DL (74-106) (74-106) (74-106) Calcium Level 8.4 MG/DL 8.1 MG/DL 7.9 MG/DL (8.5-10.1) (8.5-10.1) (8.5-10.1) White Blood Count 13.8 TH/MM3 13.9 TH/MM3 (4.0-11.0) (4.0-11.0) Red Blood Count 3.66 MIL/MM3 3.65 MIL/MM3 (4.00-5.30) (4.00-5.30) Hemoglobin 10.8 GM/DL 10.6 GM/DL (11.6-15.3) (11.6-15.3) Hematocrit 36.2 % 34.3 % (35.0-46.0) (35.0-46.0) Mean Corpuscular Volume 98.8 FL 93.8 FL (80.0-100.0) (80.0-100.0) Mean Corpuscular Hemoglobin 29.4 PG 29.1 PG (27.0-34.0) (27.0-34.0) Mean Corpuscular Hemoglobin 29.7 % 31.1 % Concent (32.0-36.0) (32.0-36.0) Red Cell Distribution Width 21.1 % 20.1 % (11.6-17.2) (11.6-17.2) Platelet Count 149 TH/MM3 126 TH/MM3 (150-450) (150-450) Mean Platelet Volume 10.4 FL 10.7 FL (7.0-11.0) (7.0-11.0) Neutrophils (%) (Auto) 78.7 % 78.7 % (16.0-70.0) (16.0-70.0) Lymphocytes (%) (Auto) 12.2 % 12.3 % (9.0-44.0) (9.0-44.0) Monocytes (%) (Auto) 7.4 % (0.0-8.0) 7.4 % (0.0-8.0) Eosinophils (%) (Auto) 1.3 % (0.0-4.0) 1.2 % (0.0-4.0) Basophils (%) (Auto) 0.4 % (0.0-2.0) 0.4 % (0.0-2.0) Neutrophils # (Auto) 10.8 TH/MM3 10.9 TH/MM3 (1.8-7.7) (1.8-7.7) Lymphocytes # (Auto) 1.7 TH/MM3 1.7 TH/MM3 (1.0-4.8) (1.0-4.8) Monocytes # (Auto) 1.0 TH/MM3 1.0 TH/MM3 (0-0.9) (0-0.9) Eosinophils # (Auto) 0.2 TH/MM3 0.2 TH/MM3 (0-0.4) (0-0.4) Basophils # (Auto) 0.1 TH/MM3 0.1 TH/MM3 (0-0.2) (0-0.2) CBC Comment DIFF FINAL AUTO DIFF Differential Comment FINAL DIFF MANUAL Urine Color YELLOW (YELLW/STRAW) Urine Turbidity HAZY (CLEAR) Urine pH 8.0 (5.0-8.5) Urine Specific [place] 1.018 (1.002-1.035) Urine Protein 30 mg/dL (NEG-TRACE) Urine Glucose (UA) NEG mg/dL (NEG) Urine Ketones NEG mg/dL (NEG) Urine Occult Blood NEG (NEG) Urine Nitrite POS (NEG) Urine Bilirubin NEG (NEG) Urine Urobilinogen LESS THAN 2.0 MG/DL (LESS THAN 2.0) Urine Leukocyte Esterase LARGE (NEG) Urine RBC 4 /hpf (0-3) Urine WBC 23 /hpf (0-5) Urine Squamous Epithelial <1 /hpf (0-5) Cells Urine Transitional Epithelial <1 /hpf (NONE) Cells Urine Triple Phosphate OCC /hpf (NONE) Crystals Urine Bacteria MOD /hpf (NONE) Urine Mucus FEW /lpf (OCC) Microscopic Urinalysis Comment CULTURE INDICATED Differential Total Cells 100 Counted Neutrophils % (Manual) 72 % (16-70) Band Neutrophils % 3 % (0-6) Lymphocytes % 12 % (9-44) Monocytes % 11 % (0-8) Neutrophils # (Manual) 10.7 TH/MM3 (1.8-7.7) Metamyelocytes 1 % (0-1) Myelocytes 1 % (0-0) Nucleated Red Blood Cells 1 /100 WBC (0-0) Platelet Estimate LOW (NORMAL) Platelet Morphology Comment NORMAL (NORMAL) Red Cell Morphology Comment NORMAL (NORMAL) Hematology Comments Test 05/02/16 05/02/16 05/02/16 06:30 18:30 23:53 Sodium Level 172 MEQ/L 167 MEQ/L 169 MEQ/L (136-145) (136-145) (136-145) Potassium Level 3.7 MEQ/L 3.6 MEQ/L 3.9 MEQ/L (3.5-5.1) (3.5-5.1) (3.5-5.1) Chloride Level 136 MEQ/L 132 MEQ/L 134 MEQ/L (98-107) (98-107) (98-107) Carbon Dioxide Level 27.4 MEQ/L 29.6 MEQ/L 27.4 MEQ/L (21.0-32.0) (21.0-32.0) (21.0-32.0) Anion Gap 9 MEQ/L (5-15) 5 MEQ/L (5-15) 8 MEQ/L (5-15) Blood Urea Nitrogen 55 MG/DL (7-18) 52 MG/DL (7-18) 54 MG/DL (7-18) Creatinine 1.58 MG/DL 1.45 MG/DL 1.49 MG/DL (0.50-1.00) (0.50-1.00) (0.50-1.00) Estimat Glomerular Filtration 31 ML/MIN (>89) 34 ML/MIN (>89) 33 ML/MIN (>89) Rate Random Glucose 115 MG/DL 72 MG/DL 99 MG/DL (74-106) (74-106) (74-106) Calcium Level 8.2 MG/DL 7.9 MG/DL 8.1 MG/DL (8.5-10.1) (8.5-10.1) (8.5-10.1) Result Diagram: 05/01/16 0551 05/02/16 2353 Microbiology Microbiology Date/Time Procedure Status Source Growth 04/30/16 23:25 Urine Culture - Preliminary Resulted Urine Clean Catch Gram Negative Tanner 05/01/16 03:30 Aerobic Blood Culture - Preliminary Resulted Blood Peripheral NO GROWTH IN 2 DAYS 05/01/16 03:30 Anaerobic Blood Culture - Preliminary Resulted Blood Peripheral NO GROWTH IN 2 DAYS 05/01/16 03:35 Aerobic Blood Culture - Preliminary Resulted Blood Peripheral NO GROWTH IN 2 DAYS 05/01/16 03:35 Anaerobic Blood Culture - Preliminary Resulted Blood Peripheral NO GROWTH IN 2 DAYS Imaging Last Impressions Chest X-Ray 04/30/16 0000 Signed Impressions: Service Date/Time: Saturday, April 30, 2016 23:51 - CONCLUSION: New Small patchy infiltrate in the peripheral right upper lung. This could indicate aspiration pneumonia. Recommend followup chest x-ray in approximately 2-3 weeks to ensure resolution. If this has not resolved in approximately 3 weeks after appropriate medical therapy, then a CT scan of the chest could be performed for further evaluation on a nonemergent outpatient basis.. Luis Fernando Black MD Patient/Family Conference Present at Family Conference: no family at bedside. Family Conference Time (mins): 15 Issues Discussed: * Palliative care role, purpose, approach * Additional medical, psychosocial, and spiritual history * Patients general health, functional status, and cognitive changes in the months leading up to the current hospitalization * Patient/family understanding of the current medical problems * Patient/family understanding of prognosis * Patients goals of care as best understood from advance directives and/or conversations and/or values * Current medical treatment options and benefits/burdens of those options * Likely scenarios comparing ongoing aggressive care with a transition to comfort measures only * Questions answered to the best of my ability * Palliative care contact information provided Assessment and Plan Disease Oriented Problem List: (1) BipolarII (2) Alzheimer disease (3) Pneumonia Comment: likely aspiration (4) UTI (urinary tract infection) (5) Hypernatremia Symptom Scale: Pertinent Non-Medical Issues Psychosocial: Spiritual: Legal: Ethical issues impacting care: Important Contacts Luis Fernando Corona [phone] or [phone] Prognosis 85 with dementia, aspiration pneumonia, multiple hospitalization. Would be appropriate for hospice should goals of care be on comfort measures only. Code Status: No Code Plan ==Code: DNR == capacity- pt has no capacity to make medical decisons. == HCS- I do not see paperwork in the chart, but reportedly son is the proxy. == Goals of care: pending. Called [phone] and got busy signal. Left voicemail for [phone] awaiting call back == Confusion- due to dementia and hyperanetrima and infections. agitated, on restraints no new med rec. Thank you for the opportunity to participate in the care of Ms. Corona. Attestation To help prompt me to consider important information that might be impacting today's encounter and assessment, information from prior notes written by myself or my colleagues may have been "brought forward" into today's note. My signature on this note, however, is an attestation that I personally performed the exam, history, and/or decision-making noted today, and, unless otherwise indicated, the interactions with patient, family, and staff as well as the review of records all occurred today. I also attest that the listed assessment and stated plan reflect my best clinical judgment today based on the combination of historical information, prior notes, and today's exam/ interactions. When time spent is documented, it refers only to time spent today by the signer, or if indicated, combined time spent today by collaborating physician/nurse practitioner. Cortes Quinteros MD May 03, 2016 14:32
[2016-05-03] MEDS: DEXTROSE 5% IN WATE 1000ML INJ 1,000 ML IV SCH (15:46)
[2016-05-03] MEDS: MIRTAZAPINE 15 MG TAB PO SCH (21:15)
[2016-05-04] VITALS (7 sets, daily range): BP systolic 89–138; BP diastolic 50–70; PULSE 56–68; RESP 16–20; TEMP 95.3–96.5; O2SAT 95–99
[2016-05-04] MEDS: HEPARIN SODIUM - SQ 10,000 UNITS/ML VIAL SQ SCH ×3 (03:04→21:52)
[2016-05-04] MEDS: WATER IV SCH ×2 (03:05)
[2016-05-04] MEDS: CLINDAMYCIN IV SCH ×2 (03:05)
[2016-05-04] MEDS: DEXTROSE 5% IV SCH ×2 (03:05)
[2016-05-04] MEDS: DEXTROSE 5% IN WATE 1000ML INJ 1,000 ML IV SCH (03:06)
[2016-05-04] MEDS: LEVOTHYROXINE SODIUM 75 MCG TAB PO SCH ×2 (06:47→06:49)
[2016-05-04 07:51] LABS: BICARBONATE 26.7 MEQ/L (21.0-32.0); MAGNESIUM 3.1 MG/DL (1.5-2.5); POTASSIUM 3.1 MEQ/L (3.5-5.1)
[2016-05-04] MEDS: DIVALPROEX SODIUM DELAYED RELEASE 250 MG TAB PO SCH ×4 (09:00→21:52)
[2016-05-04] MEDS: PRAVASTATIN SOD 10 MG TAB PO SCH (09:00)
[2016-05-04] MEDS: CLOPIDOGREL 75 MG TAB PO SCH (09:00)
[2016-05-04] MEDS: DOCUSATE SODIUM 50 MG/SENNA 8.6 MG TAB PO SCH ×4 (09:00→21:53)
[2016-05-04] MEDS: PANTOPRAZOLE SOD 20 MG DELAYED RELEASE TAB PO SCH (09:00)
[2016-05-04] MEDS: SODIUM CHLORIDE 0.9% FLUSH 5 ML FLUSH FLUSH SCH ×2 (09:18→21:52)
[2016-05-04] MEDS: POLYETHYLENE GLYCOL 17 GM PKG PO SCH (09:18)
[2016-05-04] MEDS: AMOXICILLIN/CLAVULANATE K 875 MG TAB PO SCH ×4 (10:30→21:52)
--- NOTE | 2016-05-04 10:34 | HHI.PR ---
Subjective Remarks Follow-up encephalopathy. She is more awake complaining of being tired. States "leave me alone". She is oriented to person only. Discussed with RN and speech therapy Objective Vitals Vital Signs Date Time Temp Pulse Resp B/P Pulse Ox O2 Delivery O2 Flow Rate FiO2 05/04/16 08:00 62 18 119/66 99 05/04/16 04:00 95.3 56 16 96/50 97 05/04/16 00:49 96.5 62 16 106/59 97 05/04/16 00:48 20 05/03/16 20:00 95.3 61 16 106/51 98 05/03/16 19:59 95 Nasal Cannula 05/03/16 16:00 96.2 92 16 125/74 96 05/03/16 12:00 97.4 105 18 130/81 94 I/O 05/03/16 05/03/16 05/03/16 05/04/16 05/04/16 05/04/16 07:00 15:00 23:00 07:00 15:00 23:00 Intake Total 1750 ml 844 ml 1153 ml 923 ml Output Total 400 ml 450 ml 700 ml Balance 1350 ml 394 ml 1153 ml 223 ml Intake Oral 0 ml 100 ml 200 ml IV Total 1750 ml 744 ml 1153 ml 723 ml Output Urine Total 400 ml 450 ml 700 ml # Bowel Movements 0 1 Result Diagram: 05/01/16 0551 05/04/16 0619 Objective Remarks GENERAL: This is frail eldely pt , in nad skin : multiple wound on LEs CARDIOVASCULAR: Regular rate and rhythm without murmurs, gallops, or rubs. RESPIRATORY: Clear to auscultation. Breath sounds equal bilaterally. No wheezes , rales, or rhonchi. GASTROINTESTINAL: Abdomen soft, non-tender, nondistended. Normal active bowel sounds MUSCULOSKELETAL: Extremities without clubbing, cyanosis, or edema. RUE swollen from IVF which is improving NEURO: Awake and talking but confused. Moves all ext Procedures None A/P Assessment and Plan Failure to thrive/ hypernatremia The pt presents with a sodium level of 183. mostly poor oral intake , poor access to water . She has progressive dementia and has been hospitalized frequently over the past two years. There is concern for aspiration. - D5W correction should not exceed 8-10 mmol/24 h and follow BMP. Improving sodium down to 157 - PT/OT/ST. - Palliative care consulted. - case management consult. Aspiration pneumonia with sepsis (elevated heart rate, respiratory rate and white count) CXR with infiltrate in right upper lung. The pt has progressive dementia. -Continue clindamycin. -Pured diet, aspiration precautions - blood culture x 2 negative to date. - sputum culture and gram stain. -Stable switch to Augmentin UTI The pt has a history of UTIs. UA is indicative of infection. Culture growing Morganella -Start Augmentin discontinue Rocephin Acute renal failure on chronic kidney disease stage II Prerenal s/t decreased PO intake. - IVFs. - follow BMP and avoid nephrotoxic agents. -Improving Hypokalemia. Replace. Repeat BMP in the morning Hypotension S/t dehydration. - hold antihypertensive including Lasix. - IVFs. Sacral decubitus. Wound care. Keep [place] catheter placed 04/30/16 PPx: Heparin Discharge Planning Not ready for discharge Obinna Buenrostro MD May 04, 2016 10:34
[2016-05-04] MEDS ORDERED: POTASSIUM CHLORIDE 10 MEQ CONTROLLED RELEASE TAB PO ONE (11:00)
[2016-05-04] MEDS ORDERED: POTASSIUM CHLORIDE INJ 20 MEQ in DEXTROSE 5% IN WATE 1000ML INJ 1,000 ML IV SCH ×2 (11:00)
[2016-05-04] MEDS: SODIUM HYPOCHLORITE 0.125% 500 ML BTL TOPICAL SCH ×2 (12:30→21:00)
[2016-05-04] MEDS: D5W + KCL 20 MEQ INJ 1,000 ML IV SCH (12:45)
--- NOTE | 2016-05-04 14:48 | HHI.HCPN ---
Reason for visit a. To assist with evaluation and management of symptoms including: b. To assist medical decision maker(s) with: better understanding of current medical conditions; weighing benefits/burdens of medical treatment options; making medical treatment decisions. Subjective/Interval History Pt sleeping comfortably on my visit, try to wake pt, but she moved her hand indicating she wanted to sleep. She did let me perform an exam. Family/friend interactions Again called son, and no return of call. Advance Directives Living Will: Completed, but not made available Health Care Surrogate: Completed, but not made available Durable Power of Vice President Payment: Completed, but not made available Objective Vital Signs Date Time Temp Pulse Resp B/P Pulse Ox O2 Delivery O2 Flow Rate FiO2 05/04/16 12:00 57 20 89/70 98 05/04/16 11:10 99 21 05/04/16 08:00 62 18 119/66 99 05/04/16 04:00 95.3 56 16 96/50 97 05/04/16 00:49 96.5 62 16 106/59 97 05/04/16 00:48 20 05/03/16 20:00 95.3 61 16 106/51 98 05/03/16 19:59 95 Nasal Cannula 05/03/16 16:00 96.2 92 16 125/74 96 Intake & Output 05/04/16 05/04/16 07:00 19:00 Intake Total 2076 ml Output Total 700 ml Balance 1376 ml Intake Oral 200 ml IV Total 1876 ml Output Urine Total 700 ml # Bowel Movements 1 Physical Exam CONSTITUTIONAL/GENERAL: This is frail elderly lady in restraints. no agitated. TUBES/LINES/DRAINS:piv, woods. SKIN: No jaundice, rashes, or lesions. Ecchymoses on upper extremities. No wounds seen anteriorly. HEAD: Atraumatic. Normocephalic. EYES: Pupils equal and round and reactive. Extraocular motions intact. No scleral icterus. No injection or drainage. 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 Nose without bleeding or purulent drainage. Throat without visible erythema, exudates, masses, or lesions. NECK: Trachea midline. Supple, nontender. No palpable thyroid enlargement or nodularity. CARDIOVASCULAR: Regular rate and rhythm without murmurs, gallops, or rubs. No JVD. Peripheral pulses symmetric. RESPIRATORY/CHEST: Symmetric, unlabored respirations. Clear to auscultation. Breath sounds equal bilaterally. No wheezes, rales, or rhonchi. GASTROINTESTINAL: Abdomen soft, non-tender, nondistended. No hepato-splenomegaly , or palpable masses. No guarding. Bowel sounds present. GENITOURINARY: Without palpable bladder distension. Woods catheter in place. MUSCULOSKELETAL: Extremities without clubbing, cyanosis, or edema. No joint tenderness or effusion noted. No calf tenderness. No mottling or clubbing. LYMPHATICS: No palpable cervical or supraclavicular adenopathy. NEUROLOGICAL: Awake and alert. Motor and sensory grossly within normal limits. confused PSYCHIATRIC: No obvious anxiety/depression, agitation. Diagnostic Tests Laboratory Laboratory Tests Test 05/01/16 05/02/16 05/02/16 05/02/16 20:55 06:30 18:30 23:53 Sodium Level 175 MEQ/L 172 MEQ/L 167 MEQ/L 169 MEQ/L (136-145) (136-145) (136-145) (136-145) Potassium Level 3.7 MEQ/L 3.7 MEQ/L 3.6 MEQ/L 3.9 MEQ/L (3.5-5.1) (3.5-5.1) (3.5-5.1) (3.5-5.1) Chloride Level 139 MEQ/L 136 MEQ/L 132 MEQ/L 134 MEQ/L (98-107) (98-107) (98-107) (98-107) Carbon Dioxide Level 29.8 MEQ/L 27.4 MEQ/L 29.6 MEQ/L 27.4 MEQ/L (21.0-32.0) (21.0-32.0) (21.0-32.0) (21.0-32.0) Anion Gap 6 MEQ/L (5-15) 9 MEQ/L (5-15) 5 MEQ/L (5-15) 8 MEQ/L (5-15) Blood Urea Nitrogen 57 MG/DL (7-18) 55 MG/DL (7-18) 52 MG/DL (7-18) 54 MG/DL (7- 18) Creatinine 1.66 MG/DL 1.58 MG/DL 1.45 MG/DL 1.49 MG/DL (0.50-1.00) (0.50-1.00) (0.50-1.00) (0.50-1.00) Estimat Glomerular Filtration 30 ML/MIN (>89) 31 ML/MIN (>89) 34 ML/MIN (>89) 33 ML/MIN (>89) Rate Random Glucose 88 MG/DL 115 MG/DL 72 MG/DL 99 MG/DL (74-106) (74-106) (74-106) (74-106) Calcium Level 7.9 MG/DL 8.2 MG/DL 7.9 MG/DL 8.1 MG/DL (8.5-10.1) (8.5-10.1) (8.5-10.1) (8.5-10.1) Test 05/04/16 06:19 Sodium Level 157 MEQ/L (136-145) Potassium Level 3.1 MEQ/L (3.5-5.1) Chloride Level 122 MEQ/L (98-107) Carbon Dioxide Level 26.7 MEQ/L (21.0-32.0) Anion Gap 8 MEQ/L (5-15) Blood Urea Nitrogen 47 MG/DL (7-18) Creatinine 1.33 MG/DL (0.50-1.00) Estimat Glomerular Filtration 38 ML/MIN (>89) Rate Random Glucose 101 MG/DL (74-106) Calcium Level 7.9 MG/DL (8.5-10.1) Magnesium Level 3.1 MG/DL (1.5-2.5) Total Creatine Kinase 95 U/L (26-192) Result Diagram: 05/01/16 0551 05/04/16 0619 Assessment and Plan Disease Oriented Problem List: (1) BipolarII (2) Alzheimer disease (3) Pneumonia Comment: likely aspiration (4) UTI (urinary tract infection) (5) Hypernatremia Symptom Scale: Pertinent Non-Medical Issues Psychosocial: Spiritual: Legal: Ethical issues impacting care: Important Contacts Luis Fernando Corona [phone] or [phone] Prognosis 85 with dementia, aspiration pneumonia, multiple hospitalization. Would be appropriate for hospice should goals of care be on comfort measures only. Code Status: No Code Plan ==Code: DNR == capacity- pt has no capacity to make medical decisons. == HCS- I do not see paperwork in the chart, but reportedly son is the proxy. == Goals of care: pending. Have not been able to reach son, the past 2 days. Awaiting call back. == Confusion- due to dementia and hyperanetrima and infections. agitated, on restraints no new med rec. Time Spent Total Floor Time (mins): 35 Face to Face Time (mins): 20 Attestation To help prompt me to consider important information that might be impacting today's encounter and assessment, information from prior notes written by myself or my colleagues may have been "brought forward" into today's note. My signature on this note, however, is an attestation that I personally performed the exam, history, and/or decision-making noted today, and, unless otherwise indicated, the interactions with patient, family, and staff as well as the review of records all occurred today. I also attest that the listed assessment and stated plan reflect my best clinical judgment today based on the combination of historical information, prior notes, and today's exam/ interactions. When time spent is documented, it refers only to time spent today by the signer, or if indicated, combined time spent today by collaborating physician/nurse practitioner. Cortes Quinteros MD May 04, 2016 14:48
[2016-05-04] MEDS: MIRTAZAPINE 15 MG TAB PO SCH ×3 (21:00→21:52)
[2016-05-04] MEDS ORDERED: LORazepam 2 MG/ML VIAL IV PUSH ONE (23:30)
[2016-05-05] VITALS (7 sets, daily range): BP systolic 109–160; BP diastolic 62–94; PULSE 54–74; RESP 16–18; TEMP 97.2–97.4; O2SAT 95–98
[2016-05-05] MEDS: D5W + KCL 20 MEQ INJ 1,000 ML IV SCH ×2 (01:19→12:00)
[2016-05-05] MEDS: HEPARIN SODIUM - SQ 10,000 UNITS/ML VIAL SQ SCH ×3 (03:31→20:03)
[2016-05-05] MEDS: LEVOTHYROXINE SODIUM 75 MCG TAB PO SCH ×2 (04:58)
[2016-05-05] MEDS: DIVALPROEX SODIUM DELAYED RELEASE 250 MG TAB PO SCH ×3 (07:57→20:03)
[2016-05-05] MEDS: PRAVASTATIN SOD 10 MG TAB PO SCH (07:57)
[2016-05-05] MEDS: AMOXICILLIN/CLAVULANATE K 875 MG TAB PO SCH ×3 (07:57→20:03)
[2016-05-05] MEDS: PANTOPRAZOLE SOD 20 MG DELAYED RELEASE TAB PO SCH (07:57)
[2016-05-05] MEDS: POLYETHYLENE GLYCOL 17 GM PKG PO SCH (07:57)
[2016-05-05] MEDS: DOCUSATE SODIUM 50 MG/SENNA 8.6 MG TAB PO SCH ×2 (07:57→20:03)
[2016-05-05] MEDS: SODIUM CHLORIDE 0.9% FLUSH 5 ML FLUSH FLUSH SCH ×2 (07:58→20:03)
[2016-05-05] MEDS: CLOPIDOGREL 75 MG TAB PO SCH (07:59)
--- NOTE | 2016-05-05 10:17 | HHI.PR ---
Subjective Remarks F/u hyponatremia. Isiahsty required IV ativan. Poor po. Dw son Luis Fernando [phone], will think about PEG Objective Vitals Vital Signs Date Time Temp Pulse Resp B/P Pulse Ox O2 Delivery O2 Flow Rate FiO2 05/05/16 08:00 97.4 66 16 139/94 98 05/05/16 04:00 61 16 109/72 95 05/05/16 00:00 74 18 143/90 97 05/04/16 20:00 62 20 138/69 98 05/04/16 16:00 96.0 68 18 94/56 95 05/04/16 12:00 57 20 89/70 98 05/04/16 11:10 99 21 I/O 05/04/16 05/04/16 05/04/16 05/05/16 05/05/16 05/05/16 07:00 15:00 23:00 07:00 15:00 23:00 Intake Total 923 ml 120 ml 1401 ml 0 ml Output Total 700 ml 350 ml 100 ml 150 ml Balance 223 ml -230 ml 1301 ml -150 ml Intake Oral 200 ml 120 ml 0 ml 0 ml IV Total 723 ml 1401 ml Output Urine Total 700 ml 350 ml 100 ml 150 ml # Bowel Movements 1 0 Result Diagram: 05/01/16 0551 05/04/16 0619 Objective Remarks GENERAL: This is frail eldely pt , in nad skin : multiple wound on LEs CARDIOVASCULAR: Regular rate and rhythm without murmurs, gallops, or rubs. RESPIRATORY: Clear to auscultation. Breath sounds equal bilaterally. No wheezes , rales, or rhonchi. GASTROINTESTINAL: Abdomen soft, non-tender, nondistended. Normal active bowel sounds MUSCULOSKELETAL: Extremities without clubbing, cyanosis, or edema. RUE swollen from IVF which is improving NEURO: Awake and talking but confused. Moves all ext Procedures None A/P Assessment and Plan Failure to thrive/ hypernatremia The pt presents with a sodium level of 183. mostly poor oral intake , poor access to water . She has progressive dementia and has been hospitalized frequently over the past two years. There is concern for aspiration. - D5W correction should not exceed 8-10 mmol/24 h and follow BMP. Improving sodium down to 157 labs pending - PT/OT/ST. - Palliative care consulted. Son does not know what to do - case management consult. Aspiration pneumonia with sepsis (elevated heart rate, respiratory rate and white count) CXR with infiltrate in right upper lung. The pt has progressive dementia. -Pured diet, aspiration precautions - blood culture x 2 negative to date. - sputum culture and gram stain. -Stable switch to Augmentin UTI The pt has a history of UTIs. UA is indicative of infection. Culture growing Morganella -Start Augmentin discontinue Rocephin Acute renal failure on chronic kidney disease stage II Prerenal s/t decreased PO intake. Dietitian consulted. Ensure. Son undecided on TF - IVFs. - follow BMP and avoid nephrotoxic agents. -Improving Hypokalemia. Replace. Repeat BMP in the morning Hypotension S/t dehydration. - hold antihypertensive including Lasix. - IVFs. Sacral decubitus. Wound care. Keep Frederick catheter placed 04/30/16 PPx: Heparin Discharge Planning Not ready for discharge Obinna Buenrostro MD May 05, 2016 10:17
[2016-05-05 12:42] LABS: BICARBONATE 21.6 MEQ/L (21.0-32.0); MAGNESIUM 2.9 MG/DL (1.5-2.5); POTASSIUM 5.1 MEQ/L (3.5-5.1)
[2016-05-05] MEDS: MULTIVITAMINS/MINERALS THERAPEUTIC TAB PO SCH (13:04)
[2016-05-05] MEDS ORDERED: SODIUM CHLOR 0.45% 1000 ML INJ 1,000 ML IV SCH (13:45)
[2016-05-05] MEDS: SODIUM HYPOCHLORITE 0.125% 500 ML BTL TOPICAL SCH ×2 (17:42→20:15)
[2016-05-05] MEDS: MIRTAZAPINE 15 MG TAB PO SCH ×2 (20:03)
[2016-05-06] VITALS: BP 131/69; PULSE 69; RESP 16; O2SAT 98
[2016-05-06] MEDS: HEPARIN SODIUM - SQ 10,000 UNITS/ML VIAL SQ SCH ×3 (03:55→21:28)
[2016-05-06 04:00] VITALS: BP 133/66; PULSE 100; RESP 16; TEMP 96.5; O2SAT 95
[2016-05-06] MEDS: LEVOTHYROXINE SODIUM 75 MCG TAB PO SCH ×2 (06:16)
[2016-05-06 08:00] VITALS: BP 100/59; PULSE 65; RESP 18; TEMP 97.2; O2SAT 96
[2016-05-06] MEDS: DOCUSATE SODIUM 50 MG/SENNA 8.6 MG TAB PO SCH ×2 (10:13→20:09)
[2016-05-06] MEDS: DIVALPROEX SODIUM DELAYED RELEASE 250 MG TAB PO SCH ×2 (10:14→20:10)
[2016-05-06] MEDS: CLOPIDOGREL 75 MG TAB PO SCH (10:14)
[2016-05-06] MEDS: PANTOPRAZOLE SOD 20 MG DELAYED RELEASE TAB PO SCH (10:14)
[2016-05-06] MEDS: PRAVASTATIN SOD 10 MG TAB PO SCH (10:14)
[2016-05-06] MEDS: MULTIVITAMINS/MINERALS THERAPEUTIC TAB PO SCH (10:14)
[2016-05-06] MEDS: SODIUM HYPOCHLORITE 0.125% 500 ML BTL TOPICAL SCH ×2 (10:15→22:26)
[2016-05-06] MEDS: POLYETHYLENE GLYCOL 17 GM PKG PO SCH (10:15)
[2016-05-06] MEDS: SODIUM CHLORIDE 0.9% FLUSH 5 ML FLUSH FLUSH SCH ×2 (10:20→20:17)
[2016-05-06] MEDS: AMOXICILLIN/CLAVULANATE K 875 MG TAB PO SCH ×2 (10:21→20:10)
[2016-05-06 12:00] VITALS: BP 126/60; PULSE 68; RESP 16; TEMP 97.3; O2SAT 96
--- NOTE | 2016-05-06 12:59 | HHI.PR ---
Subjective Remarks Follow-up hypernatremia. Patient awake but continues to have poor by mouth. Son does not want PEG and hospice. Discussed with RN Objective Vitals Vital Signs Date Time Temp Pulse Resp B/P Pulse Ox O2 Delivery O2 Flow Rate FiO2 05/06/16 08:00 97.2 65 18 100/59 96 05/06/16 04:00 96.5 100 16 133/66 95 05/06/16 00:00 69 16 131/69 98 05/05/16 20:00 65 18 160/69 96 05/05/16 16:00 97.4 57 16 118/77 98 05/05/16 14:17 96 I/O 05/05/16 05/05/16 05/05/16 05/06/16 05/06/16 05/06/16 07:00 15:00 23:00 07:00 15:00 23:00 Intake Total 0 ml 240 ml 25 ml 460 ml Output Total 150 ml 250 ml 200 ml 175 ml Balance -150 ml -10 ml -175 ml 285 ml Intake Oral 0 ml 240 ml 25 ml 0 ml IV Total 460 ml Output Urine Total 150 ml 250 ml 200 ml 175 ml # Bowel Movements 0 Result Diagram: 04/30/16 2210 05/05/16 1152 Objective Remarks GENERAL: This is frail eldely pt , in nad skin : multiple wound on LEs CARDIOVASCULAR: Regular rate and rhythm without murmurs, gallops, or rubs. RESPIRATORY: Clear to auscultation. Breath sounds equal bilaterally. No wheezes , rales, or rhonchi. GASTROINTESTINAL: Abdomen soft, non-tender, nondistended. Normal active bowel sounds MUSCULOSKELETAL: Extremities without clubbing, cyanosis, or edema. RUE swollen from IVF which is improving NEURO: Awake and talking but confused. Moves all ext Procedures None A/P Assessment and Plan Failure to thrive/ hypernatremia The pt presents with a sodium level of 183. mostly poor oral intake , poor access to water . She has progressive dementia and has been hospitalized frequently over the past two years. There is concern for aspiration. - D5W correction should not exceed 8-10 mmol/24 h and follow BMP. Her sodium up to 155. Switch back to D5 water - PT/OT/ST. - Palliative care consulted. Son does not know what to do, does not want PEG and hospice - case management consult. Aspiration pneumonia with sepsis (elevated heart rate, respiratory rate and white count) CXR with infiltrate in right upper lung. The pt has progressive dementia. -Pured diet, aspiration precautions - blood culture x 2 negative to date. - sputum culture and gram stain. -Stable switch to Augmentin UTI The pt has a history of UTIs. UA is indicative of infection. Culture growing Morganella -Start Augmentin discontinue Rocephin Acute renal failure on chronic kidney disease stage II Prerenal s/t decreased PO intake. Dietitian consulted. Ensure. Son undecided on TF - IVFs. - follow BMP and avoid nephrotoxic agents. -Improving Hypokalemia. Replace. Repeat BMP in the morning Hypotension S/t dehydration. - hold antihypertensive including Lasix. - IVFs. Sacral decubitus. Wound care. Keep Frederick catheter placed 04/30/16 PPx: Heparin Discharge Planning Not ready for discharge, high likelihood of readmission Obinna Buenrostro MD May 06, 2016 12:59
[2016-05-06 13:30] LABS: MAGNESIUM 2.8 MG/DL (1.5-2.5); POTASSIUM 4.8 MEQ/L (3.5-5.1)
[2016-05-06] MEDS ORDERED: LORA-392 PO (13:47)
[2016-05-06] MEDS: DEXTROSE 5% IN WATE 1000ML INJ 1,000 ML IV SCH (14:27)
[2016-05-06] MEDS ORDERED: AMOX875T2 PO (14:31)
[2016-05-06] MEDS ORDERED: DAKI0.12 TOPICAL (14:31)
--- NOTE | 2016-05-06 14:32 | HHI.DCPOC ---
Discharge Care Plan Diagnosis: (1) UTI (lower urinary tract infection) Your Health Problems Are: Difficulty with ADL Exercise Tolerance Goals to Promote Your Health * To prevent worsening of your condition and complications * To maintain your health at the optimal level Directions to Meet Your Goals Take your medications as prescribed Follow your dietary instruction Follow activity as directed Keep your appointments as scheduled Take your immunizations and boosters as scheduled If your symptoms worsen call your PCP, if no PCP go to Urgent Care Center or Emergency Room Smoking is Dangerous to Your Health. Avoid second hand smoke Call the 24-hour hour crisis hotline for domestic abuse at Obinna Buenrostro MD May 06, 2016 14:32
[2016-05-06 16:00] VITALS: BP 119/65; PULSE 71; RESP 16; TEMP 97.6; O2SAT 98
[2016-05-06 20:00] VITALS: BP 104/50; PULSE 72; RESP 18; O2SAT 96
[2016-05-06] MEDS: MIRTAZAPINE 15 MG TAB PO SCH (20:09)
[2016-05-06] MEDS: LORazepam 2 MG/ML VIAL IV PUSH PRN (21:26)
[2016-05-07] VITALS (8 sets, daily range): BP systolic 109–148; BP diastolic 48–70; PULSE 74–106; RESP 18–22; TEMP 94.9–97.6; O2SAT 95–97
[2016-05-07] MEDS: HEPARIN SODIUM - SQ 10,000 UNITS/ML VIAL SQ SCH ×3 (03:43→19:58)
[2016-05-07] MEDS: LEVOTHYROXINE SODIUM 100 MCG TAB PO SCH (05:39)
[2016-05-07] MEDS: LEVOTHYROXINE SODIUM 75 MCG TAB PO SCH (05:39)
[2016-05-07 07:50] LABS: AUTOMATED NEUTROPHIL # 8.3 TH/MM3 (1.8-7.7); BASOPHIL % 0.3 % (0.0-2.0); EOSINOPHIL # 0.1 TH/MM3 (0-0.4); EOSINOPHIL % 1.1 % (0.0-4.0); HEMATOCRIT 28.2 % (35.0-46.0); LYMPH % 11.2 % (9.0-44.0); LYMPHOCYTE # 1.1 TH/MM3 (1.0-4.8); MEAN CELL VOLUME 92.8 FL (80.0-100.0); MEAN CORPUSCULAR HEMOGLOBIN 30.5 PG (27.0-34.0); MEAN CORPUSCULAR HGB CONC 32.9 % (32.0-36.0); MONO % 5.9 % (0.0-8.0); NEUT % 81.5 % (16.0-70.0); PLATELET COUNT 135 TH/MM3 (150-450); RED BLOOD COUNT 3.04 MIL/MM3 (4.00-5.30); RED CELL DISTRIBUTION WIDTH 19.7 % (11.6-17.2); WHITE BLOOD COUNT 10.2 TH/MM3 (4.0-11.0)
[2016-05-07 07:52] LABS: HEMO FLAGS AUTO DIFF
[2016-05-07 08:05] LABS: BICARBONATE 28.8 MEQ/L (21.0-32.0)
[2016-05-07 08:39] LABS: SCAN/DIFF AUTO DIFF CONFIRMED
[2016-05-07 08:40] LABS: OVALOCYTES 1+ (NORMAL)
[2016-05-07] MEDS: LACTULOSE SYRUP 20 GM/30 ML CUP PO SCH ×2 (09:00→23:00)
--- NOTE | 2016-05-07 10:19 | HHI.HCPN ---
Reason for visit a. To assist with evaluation and management of symptoms including: Agitation b. To assist medical decision maker(s) with: better understanding of current medical conditions; weighing benefits/burdens of medical treatment options; making medical treatment decisions. . Subjective/Interval History INTERVAL NOTE: The patient remained somewhat lethargic, sleeping most of the time, profoundly weak. The MICE RAISER reports that the patient takes a few sips of Ensure, but is not taking much else orally. She remains afebrile. Sodium is down to 153, CBC remained stable. Family/friend interactions Tried to call both phone numbers for the son, left messages --> no return call. . Advance Directives Living Will: Completed, but not made available Health Care Surrogate: Completed, but not made available Durable Power of Colliery Clerk: Completed, but not made available Objective Vital Signs Date Time Temp Pulse Resp B/P Pulse Ox O2 Delivery O2 Flow Rate FiO2 05/07/16 08:00 97.6 88 20 116/54 96 05/07/16 06:44 95.3 05/07/16 05:40 94.9 05/07/16 04:00 95.2 74 18 139/70 97 05/07/16 00:00 97.0 88 18 148/69 96 05/06/16 20:00 72 18 104/50 96 05/06/16 16:00 97.6 71 16 119/65 98 05/06/16 12:00 97.3 68 16 126/60 96 Intake & Output 05/07/16 05/07/16 07:00 19:00 Intake Total 503 ml Output Total 275 ml Balance 228 ml Intake Oral 25 ml IV Total 478 ml Output Urine Total 275 ml # Bowel Movements 0 Physical Exam CONSTITUTIONAL/GENERAL: This is frail elderly lady, weak. Not agitated. ENT: Has hearing deficit. Nose without bleeding or purulent drainage. Throat without visible erythema, exudates, masses, or lesions. NECK: Trachea midline. Supple, nontender. No palpable thyroid enlargement or nodularity. CARDIOVASCULAR: Regular rate and rhythm without murmurs, gallops, or rubs. No JVD. Peripheral pulses symmetric. RESPIRATORY/CHEST: Symmetric, unlabored respirations. Clear to auscultation. Breath sounds equal bilaterally. No wheezes, rales, or rhonchi. GASTROINTESTINAL: Abdomen soft, non-tender, nondistended. No hepato-splenomegaly , or palpable masses. No guarding. Bowel sounds present. GENITOURINARY: Without palpable bladder distension. Frederick catheter in place. MUSCULOSKELETAL: Extremities without clubbing, cyanosis, or edema. NEUROLOGICAL: Sleeping but awakens, does not follow commands, does not speak PSYCHIATRIC: No obvious anxiety/depression, agitation. . Diagnostic Tests Laboratory Laboratory Tests Test 05/05/16 05/06/16 05/07/16 05/07/16 11:52 12:30 07:39 08:10 Sodium Level 148 MEQ/L 155 MEQ/L 153 MEQ/L (136-145) (136-145) (136-145) Potassium Level 5.1 MEQ/L 4.8 MEQ/L 4.0 MEQ/L (3.5-5.1) (3.5-5.1) (3.5-5.1) Chloride Level 119 MEQ/L 125 MEQ/L 118 MEQ/L (98-107) (98-107) (98-107) Carbon Dioxide Level 21.6 MEQ/L 22.0 MEQ/L 28.8 MEQ/L (21.0-32.0) (21.0-32.0) (21.0-32.0) Anion Gap 7 MEQ/L (5-15) 8 MEQ/L (5-15) 6 MEQ/L (5-15) Blood Urea Nitrogen 33 MG/DL (7-18) 25 MG/DL (7-18) 21 MG/DL (7-18) Creatinine 0.98 MG/DL 0.75 MG/DL 0.82 MG/DL (0.50-1.00) (0.50-1.00) (0.50-1.00) Estimat Glomerular Filtration 54 ML/MIN (>89) 74 ML/MIN (>89) 67 ML/MIN (>89) Rate Random Glucose 94 MG/DL 50 MG/DL 82 MG/DL (74-106) (74-106) (74-106) Calcium Level 7.9 MG/DL 7.9 MG/DL 8.1 MG/DL (8.5-10.1) (8.5-10.1) (8.5-10.1) Magnesium Level 2.9 MG/DL 2.8 MG/DL 2.9 MG/DL (1.5-2.5) (1.5-2.5) (1.5-2.5) White Blood Count 10.2 TH/MM3 (4.0-11.0) Red Blood Count 3.04 MIL/MM3 (4.00-5.30) Hemoglobin 9.3 GM/DL (11.6-15.3) Hematocrit 28.2 % (35.0-46.0) Mean Corpuscular Volume 92.8 FL (80.0-100.0) Mean Corpuscular Hemoglobin 30.5 PG (27.0-34.0) Mean Corpuscular Hemoglobin 32.9 % Concent (32.0-36.0) Red Cell Distribution Width 19.7 % (11.6-17.2) Platelet Count 135 TH/MM3 (150-450) Mean Platelet Volume 10.6 FL (7.0-11.0) Neutrophils (%) (Auto) 81.5 % (16.0-70.0) Lymphocytes (%) (Auto) 11.2 % (9.0-44.0) Monocytes (%) (Auto) 5.9 % (0.0-8.0) Eosinophils (%) (Auto) 1.1 % (0.0-4.0) Basophils (%) (Auto) 0.3 % (0.0-2.0) Neutrophils # (Auto) 8.3 TH/MM3 (1.8-7.7) Lymphocytes # (Auto) 1.1 TH/MM3 (1.0-4.8) Monocytes # (Auto) 0.6 TH/MM3 (0-0.9) Eosinophils # (Auto) 0.1 TH/MM3 (0-0.4) Basophils # (Auto) 0.0 TH/MM3 (0-0.2) CBC Comment AUTO DIFF Differential Comment AUTO DIFF CONFIRMED Ovalocytes 1+ (NORMAL) Lactic Acid Level 2.3 mmol/L (0.4-2.0) Thyroid Stimulating Hormone 39.300 uIU/ML 3rd Gen (0.358-3.740) Result Diagram: 05/07/16 0739 05/07/16 0739 Microbiology Microbiology Date/Time Procedure Status Source Growth 05/07/16 07:30 Aerobic Blood Culture Received Blood Peripheral Pending 05/07/16 07:30 Anaerobic Blood Culture Received Blood Peripheral Pending 05/07/16 07:38 Aerobic Blood Culture Received Blood Peripheral Pending 05/07/16 07:38 Anaerobic Blood Culture Received Blood Peripheral Pending Imaging Last Impressions Chest X-Ray 04/30/16 0000 Signed Impressions: Service Date/Time: Saturday, April 30, 2016 23:51 - CONCLUSION: New Small patchy infiltrate in the peripheral right upper lung. This could indicate aspiration pneumonia. Recommend followup chest x-ray in approximately 2-3 weeks to ensure resolution. If this has not resolved in approximately 3 weeks after appropriate medical therapy, then a CT scan of the chest could be performed for further evaluation on a nonemergent outpatient basis.. Luis Fernando Black MD Assessment and Plan Disease Oriented Problem List: (1) Pneumonia Comment: likely aspiration (2) Alzheimer disease Comment: End-stage, with multiple infections, aspiration, nonambulatory, nearly nonverbal (3) BipolarII (4) UTI (urinary tract infection) (5) Hypernatremia Symptom Scale: Pertinent Non-Medical Issues Psychosocial: Long-term long-term resident Spiritual: Legal: The patient lacks capacity for decision-making and will not regain that capacity. Her son has been functioning as of care proxy decision-maker. Ethical issues impacting care: None. . Important Contacts Son: Luis Fernando Corona [phone] or [phone] . Prognosis 85 with dementia, aspiration pneumonia, multiple hospitalization, and she is clearly end-stage. Would be appropriate for hospice should goals of care be on comfort measures only. . Code Status: No Code Plan == Code: DNR == capacity- pt has no capacity to make medical decisions, and will not regain that capacity; son Luis Fernando has been functioning as proxy decision-maker.. == HCS - I do not see paperwork in the chart, but reportedly son is the proxy. == Goals of care: The patient's son has been difficult to reach at times. Conversations by other healthcare providers during this hospitalization confirmed DNR status, and confirmed that the son did not want PEG tube placement. Clearly the patient is hospice appropriate as she returns to her long-term, and I will continue to try to call the patient's son to further clarify the goals. == Confusion - due to end-stage dementia and hypernatremia and infections. Agitated, has required restraints; no new med rec. == Palliative Care will continue to follow the patient during this hospitalization. . Time Spent Total Floor Time (mins): 29 Face to Face Time (mins): 16 >50% Counseling/Coord of Care: Yes Attestation To help prompt me to consider important information that might be impacting today's encounter and assessment, information from prior notes written by myself or my colleagues may have been "brought forward" into today's note. My signature on this note, however, is an attestation that I personally performed the exam, history, and/or decision-making noted today, and, unless otherwise indicated, the interactions with patient, family, and staff as well as the review of records all occurred today. I also attest that the listed assessment and stated plan reflect my best clinical judgment today based on the combination of historical information, prior notes, and today's exam/ interactions. When time spent is documented, it refers only to time spent today by the signer, or if indicated, combined time spent today by collaborating physician/nurse practitioner. Helen Esposito MD May 07, 2016 10:19
[2016-05-07] MEDS: CLOPIDOGREL 75 MG TAB PO SCH (10:31)
[2016-05-07] MEDS: DOCUSATE SODIUM 50 MG/SENNA 8.6 MG TAB PO SCH ×2 (10:32→23:00)
[2016-05-07] MEDS: PANTOPRAZOLE SOD 20 MG DELAYED RELEASE TAB PO SCH (10:32)
[2016-05-07] MEDS: PRAVASTATIN SOD 10 MG TAB PO SCH (10:32)
[2016-05-07] MEDS: DIVALPROEX SODIUM DELAYED RELEASE 250 MG TAB PO SCH ×2 (10:32→19:57)
[2016-05-07] MEDS: AMOXICILLIN/CLAVULANATE K 875 MG TAB PO SCH ×2 (10:32→19:56)
[2016-05-07] MEDS: MULTIVITAMINS/MINERALS THERAPEUTIC TAB PO SCH (10:32)
[2016-05-07] MEDS: SODIUM CHLORIDE 0.9% FLUSH 5 ML FLUSH FLUSH SCH ×2 (10:33→19:59)
[2016-05-07] MEDS: POLYETHYLENE GLYCOL 17 GM PKG PO SCH (10:33)
[2016-05-07] MEDS: SODIUM HYPOCHLORITE 0.125% 500 ML BTL TOPICAL SCH ×2 (10:33→23:00)
[2016-05-07] MEDS: DEXTROSE 5% IN WATE 1000ML INJ 1,000 ML IV SCH ×2 (10:34→23:51)
--- NOTE | 2016-05-07 11:35 | HHI.PR ---
Subjective Remarks Follow-up UTI. Hypothermic overnight lowest temperature 94.9. Requesting to be covered up. Discussed with RN, to obtain CBC and blood cultures. Also no BM denies nausea and abdominal pain. Remains anorexic. Objective Vitals Vital Signs Date Time Temp Pulse Resp B/P Pulse Ox O2 Delivery O2 Flow Rate FiO2 05/07/16 08:00 97.6 88 20 116/54 96 05/07/16 06:44 95.3 05/07/16 05:40 94.9 05/07/16 04:00 95.2 74 18 139/70 97 05/07/16 00:00 97.0 88 18 148/69 96 05/06/16 20:00 72 18 104/50 96 05/06/16 16:00 97.6 71 16 119/65 98 05/06/16 12:00 97.3 68 16 126/60 96 I/O 05/06/16 05/06/16 05/06/16 05/07/16 05/07/16 05/07/16 07:00 15:00 23:00 07:00 15:00 23:00 Intake Total 460 ml 100 ml 494 ml 303 ml Output Total 175 ml 300 ml 275 ml Balance 285 ml -200 ml 494 ml 28 ml Intake Oral 0 ml 100 ml 25 ml IV Total 460 ml 494 ml 278 ml Output Urine Total 175 ml 300 ml 275 ml # Bowel Movements 0 Result Diagram: 05/07/16 0739 05/07/16 0739 Objective Remarks GENERAL: This is frail eldely pt , in nad skin : multiple wound on LEs CARDIOVASCULAR: Regular rate and rhythm without murmurs, gallops, or rubs. RESPIRATORY: Clear to auscultation. Breath sounds equal bilaterally. No wheezes , rales, or rhonchi. GASTROINTESTINAL: Abdomen soft, non-tender, nondistended. Normal active bowel sounds MUSCULOSKELETAL: Extremities without clubbing, cyanosis, or edema. RUE swollen from IVF which is improving NEURO: Awake and talking but confused. Moves all ext Procedures None A/P Assessment and Plan Failure to thrive/ hypernatremia The pt presents with a sodium level of 183. mostly poor oral intake , poor access to water . She has progressive dementia and has been hospitalized frequently over the past two years. There is concern for aspiration. - D5W correction should not exceed 8-10 mmol/24 h and follow BMP. Her sodium is slowly improving continue D5 water - PT/OT/ST. - Palliative care consulted. Son does not know what to do, does not want PEG and hospice - case management consult. Aspiration pneumonia with sepsis (elevated heart rate, respiratory rate and white count) CXR with infiltrate in right upper lung. The pt has progressive dementia. -Pured diet, aspiration precautions - blood culture x 2 negative to date. - sputum culture and gram stain ordered. - Ct Augmentin till May 13 UTI The pt has a history of UTIs. UA is indicative of infection. Culture growing Morganella -Ct Augmentin discontinue Rocephin Hypothermia secondary to hypothyroidism and/or possible sepsis -Improved follow-up blood culture. Leukocytosis improved -Warming blanket Acute renal failure on chronic kidney disease stage II Prerenal s/t decreased PO intake. Dietitian consulted. Ensure. Son undecided on TF - IVFs. - follow BMP and avoid nephrotoxic agents. - Improving Hypokalemia. Replace. Repeat BMP in the morning Hypotension S/t dehydration. - hold antihypertensive including Lasix. - IVFs. Sacral decubitus. Wound care. Keep Frederick catheter placed 04/30/16 Hypothyroidism. Increase Synthroid to a total of 188 g daily recheck TSH in 6 weeks PPx: Heparin Discharge Planning Not ready for discharge, high likelihood of readmission Obinna Buenrostro MD May 07, 2016 11:35
[2016-05-07] MEDS: MIRTAZAPINE 15 MG TAB PO SCH (19:59)
[2016-05-08] VITALS: BP 126/53; PULSE 64; RESP 18; TEMP 96.8; O2SAT 93
[2016-05-08 04:00] VITALS: BP 133/58; PULSE 89; RESP 16; TEMP 96.9; O2SAT 96
[2016-05-08] MEDS: HEPARIN SODIUM - SQ 10,000 UNITS/ML VIAL SQ SCH ×3 (04:40→20:00)
[2016-05-08] MEDS: LEVOTHYROXINE SODIUM 88 MCG TAB PO SCH (05:41)
[2016-05-08] MEDS: LEVOTHYROXINE SODIUM 100 MCG TAB PO SCH (05:42)
[2016-05-08 06:29] LABS: AUTOMATED NEUTROPHIL # 10.8 TH/MM3 (1.8-7.7); BASOPHIL % 0.1 % (0.0-2.0); EOSINOPHIL # 0.1 TH/MM3 (0-0.4); EOSINOPHIL % 0.9 % (0.0-4.0); HEMATOCRIT 27.5 % (35.0-46.0); LYMPH % 9.4 % (9.0-44.0); LYMPHOCYTE # 1.2 TH/MM3 (1.0-4.8); MEAN CELL VOLUME 92.5 FL (80.0-100.0); MEAN CORPUSCULAR HEMOGLOBIN 29.9 PG (27.0-34.0); MEAN CORPUSCULAR HGB CONC 32.3 % (32.0-36.0); MONO % 6.2 % (0.0-8.0); NEUT % 83.4 % (16.0-70.0); PLATELET COUNT 162 TH/MM3 (150-450); RED BLOOD COUNT 2.97 MIL/MM3 (4.00-5.30); RED CELL DISTRIBUTION WIDTH 20.5 % (11.6-17.2)
[2016-05-08 06:44] LABS: HEMO FLAGS AUTO DIFF
[2016-05-08 06:46] LABS: BICARBONATE 25.5 MEQ/L (21.0-32.0); MAGNESIUM 2.8 MG/DL (1.5-2.5); POTASSIUM 3.3 MEQ/L (3.5-5.1)
[2016-05-08 08:08] LABS: BANDS 1 % (0-6); METAMYELOCYTES 2 % (0-1); MYELOCYTES 2 % (0-0); NEUTROPHIL # MANUAL DIFF 11.6 TH/MM3 (1.8-7.7); POLYS (SEG NEUTROPHILS) 83 % (16-70); PROMYELOCYTES 1 % (0-0); WBC DIFF SAMPLE 100
[2016-05-08 08:09] LABS: PLATELET ESTIMATE SMEAR NORMAL (NORMAL); PLATELET MORPHOLOGY NORMAL (NORMAL); SCAN/DIFF FINAL DIFF MANUAL
[2016-05-08 09:00] VITALS: BP 106/50; PULSE 76; RESP 20; TEMP 97.4; O2SAT 96
[2016-05-08] MEDS: MULTIVITAMINS/MINERALS THERAPEUTIC TAB PO SCH (09:00)
[2016-05-08] MEDS: SODIUM CHLORIDE 0.9% FLUSH 5 ML FLUSH FLUSH SCH ×2 (09:00→21:00)
[2016-05-08] MEDS: PANTOPRAZOLE SOD 20 MG DELAYED RELEASE TAB PO SCH (09:00)
[2016-05-08] MEDS: PRAVASTATIN SOD 10 MG TAB PO SCH (09:00)
[2016-05-08] MEDS: DIVALPROEX SODIUM DELAYED RELEASE 250 MG TAB PO SCH ×2 (09:17→21:28)
[2016-05-08] MEDS: POLYETHYLENE GLYCOL 17 GM PKG PO SCH (09:17)
[2016-05-08] MEDS: AMOXICILLIN/CLAVULANATE K 875 MG TAB PO SCH ×2 (09:17→21:27)
[2016-05-08] MEDS: DOCUSATE SODIUM 50 MG/SENNA 8.6 MG TAB PO SCH ×2 (09:17→21:28)
[2016-05-08] MEDS: CLOPIDOGREL 75 MG TAB PO SCH (09:17)
[2016-05-08] MEDS: LACTULOSE SYRUP 20 GM/30 ML CUP PO SCH ×2 (09:17→21:28)
[2016-05-08] MEDS ORDERED: POTASSIUM CHLORIDE 10 MEQ CONTROLLED RELEASE TAB PO ONE (10:30)
[2016-05-08 12:00] VITALS: BP 113/60; PULSE 83; RESP 20; TEMP 96.6; O2SAT 95
[2016-05-08] MEDS: SODIUM HYPOCHLORITE 0.125% 500 ML BTL TOPICAL SCH ×2 (13:40→21:00)
--- NOTE | 2016-05-08 14:33 | HHI.PR ---
Subjective Remarks F/u hypothermia. Improved temp 97.4 still with poor po. Unable to reach son. No answer with contact numbers dw RN Objective Vitals Vital Signs Date Time Temp Pulse Resp B/P Pulse Ox O2 Delivery O2 Flow Rate FiO2 05/08/16 12:00 96.6 83 20 113/60 95 05/08/16 09:00 97.4 76 20 106/50 96 05/08/16 04:00 96.9 89 16 133/58 96 05/08/16 00:00 96.8 64 18 126/53 93 05/07/16 20:00 96.9 78 18 112/69 95 05/07/16 16:18 96.5 106 22 113/48 96 I/O 05/07/16 05/07/16 05/07/16 05/08/16 05/08/16 05/08/16 07:00 15:00 23:00 07:00 15:00 23:00 Intake Total 303 ml 765 ml 495 ml 20 ml Output Total 275 ml 2000 ml 250 ml 250 ml 150 ml Balance 28 ml -1235 ml 245 ml -250 ml -130 ml Intake Oral 25 ml 240 ml 200 ml 20 ml IV Total 278 ml 525 ml 295 ml Output Urine Total 275 ml 2000 ml 250 ml 250 ml 150 ml # Bowel Movements 0 Result Diagram: 05/08/1654305/08/16543 Objective Remarks GENERAL: This is frail eldely pt , in nad skin : multiple wound on LEs CARDIOVASCULAR: Regular rate and rhythm without murmurs, gallops, or rubs. RESPIRATORY: Clear to auscultation. Breath sounds equal bilaterally. No wheezes , rales, or rhonchi. GASTROINTESTINAL: Abdomen soft, non-tender, nondistended. Normal active bowel sounds MUSCULOSKELETAL: Extremities without clubbing, cyanosis, or edema. RUE swollen from IVF which is improving NEURO: Awake and talking but confused. Moves all ext Procedures None A/P Assessment and Plan Failure to thrive/ hypernatremia The pt presents with a sodium level of 183. mostly poor oral intake , poor access to water . She has progressive dementia and has been hospitalized frequently over the past two years. There is concern for aspiration. - D5W correction should not exceed 8-10 mmol/24 h and follow BMP. Her sodium is slowly improving continue D5 water - PT/OT/ST. - Palliative care consulted. Son does not know what to do, does not want PEG and hospice. Unbale to reach son - case management consult. Aspiration pneumonia with sepsis (elevated heart rate, respiratory rate and white count) CXR with infiltrate in right upper lung. The pt has progressive dementia. -Pured diet, aspiration precautions - blood culture x 2 negative to date. - sputum culture and gram stain ordered. - Ct Augmentin till May 13 -has leukocytosis on labs today rpt in am UTI The pt has a history of UTIs. UA is indicative of infection. Culture growing Morganella -Ct Augmentin discontinue Rocephin Hypothermia secondary to hypothyroidism and/or possible sepsis -Improved follow-up blood culture NGTD -Warming blanket Acute renal failure on chronic kidney disease stage II Prerenal s/t decreased PO intake. Dietitian consulted. Ensure. Son undecided on TF - IVFs. - follow BMP and avoid nephrotoxic agents. - Improving Hypokalemia. Replace. Repeat BMP in the morning Hypotension S/t dehydration. - hold antihypertensive including Lasix. - IVFs. Sacral decubitus. Wound care. Keep Frederick catheter placed 04/30/16 Hypothyroidism. Increase Synthroid to a total of 188 g daily recheck TSH in 6 weeks PPx: Heparin Discharge Planning Not ready for discharge, high likelihood of readmission 2/2 to poor po leading to dehydration. Son does not want PEG and wont consider Hospice Abando,Obinna Jara MD May 08, 2016 14:33
[2016-05-08 16:00] VITALS: BP 105/45; PULSE 75; RESP 18; TEMP 95.9; O2SAT 95
--- NOTE | 2016-05-08 16:48 | HHI.HCPN ---
Reason for visit a. To assist with evaluation and management of symptoms including: Agitation b. To assist medical decision maker(s) with: better understanding of current medical conditions; weighing benefits/burdens of medical treatment options; making medical treatment decisions. . Subjective/Interval History INTERVAL NOTE: The patient is more alert, but remains profoundly weak. The INFORMATION TECHNOLOGY AUDITOR reports that the patient takes only a couple bites of food with each meal and a few sips of Ensure. She remains afebrile. Her white count is back up to 13.0. Sodium is finally down to 149. . Family/friend interactions Discussion at the bedside and then in the hallway with son Luis Fernando, who has been functioning is her caregiver and decision maker for the past couple years. He reports she was diagnosed with dementia about 2 years ago, was hospitalized with an infection in February, went to rehabilitation, then 2 a long-term [facility] where she got another infection and ended up back here with this pneumonia. Prior to February, she was walking independently with a walker, but 2 weeks ago could only take a couple steps with a walker. She seems weaker now. . Advance Directives Living Will: Completed, but not made available Health Care Surrogate: Completed, but not made available Durable Power of Compensation Consulting Manager: Completed, but not made available Objective Vital Signs Date Time Temp Pulse Resp B/P Pulse Ox O2 Delivery O2 Flow Rate FiO2 05/08/16 16:00 95.9 75 18 105/45 95 05/08/16 12:00 96.6 83 20 113/60 95 05/08/16 09:00 97.4 76 20 106/50 96 05/08/16 04:00 96.9 89 16 133/58 96 05/08/16 00:00 96.8 64 18 126/53 93 05/07/16 20:00 96.9 78 18 112/69 95 Intake & Output 05/08/16 05/08/16 07:00 19:00 Intake Total 495 ml 20 ml Output Total 500 ml 150 ml Balance -5 ml -130 ml Intake Oral 200 ml 20 ml IV Total 295 ml Output Urine Total 500 ml 150 ml Physical Exam CONSTITUTIONAL/GENERAL: This is frail elderly lady, weak. Not agitated. ENT: Has hearing deficit. Nose without bleeding or purulent drainage. Throat without visible erythema, exudates, masses, or lesions. NECK: Trachea midline. Supple, nontender. No palpable thyroid enlargement or nodularity. CARDIOVASCULAR: Regular rate and rhythm without murmurs, gallops, or rubs. No JVD. Peripheral pulses symmetric. RESPIRATORY/CHEST: Symmetric, unlabored respirations. Clear to auscultation. Breath sounds equal bilaterally. No wheezes, rales, or rhonchi. GASTROINTESTINAL: Abdomen soft, non-tender, nondistended. No hepato-splenomegaly , or palpable masses. No guarding. Bowel sounds present. GENITOURINARY: Without palpable bladder distension. Frederick catheter in place. MUSCULOSKELETAL: Extremities without clubbing, cyanosis, or edema. NEUROLOGICAL: Sleeping but awakens, does not follow commands, does not speak PSYCHIATRIC: No obvious anxiety/depression, agitation. . Diagnostic Tests Laboratory Laboratory Tests Test 05/06/16 05/07/16 05/07/16 05/08/16 12:30 07:39 08:10 05:44 Sodium Level 155 MEQ/L 153 MEQ/L 149 MEQ/L (136-145) (136-145) (136-145) Potassium Level 4.8 MEQ/L 4.0 MEQ/L 3.3 MEQ/L (3.5-5.1) (3.5-5.1) (3.5-5.1) Chloride Level 125 MEQ/L 118 MEQ/L 116 MEQ/L (98-107) (98-107) (98-107) Carbon Dioxide Level 22.0 MEQ/L 28.8 MEQ/L 25.5 MEQ/L (21.0-32.0) (21.0-32.0) (21.0-32.0) Anion Gap 8 MEQ/L (5-15) 6 MEQ/L (5-15) 8 MEQ/L (5-15) Blood Urea Nitrogen 25 MG/DL (7-18) 21 MG/DL (7-18) 17 MG/DL (7-18) Creatinine 0.75 MG/DL 0.82 MG/DL 0.77 MG/DL (0.50-1.00) (0.50-1.00) (0.50-1.00) Estimat Glomerular Filtration 74 ML/MIN (>89) 67 ML/MIN (>89) 72 ML/MIN (>89) Rate Random Glucose 50 MG/DL 82 MG/DL 55 MG/DL (74-106) (74-106) (74-106) Calcium Level 7.9 MG/DL 8.1 MG/DL 8.0 MG/DL (8.5-10.1) (8.5-10.1) (8.5-10.1) Magnesium Level 2.8 MG/DL 2.9 MG/DL 2.8 MG/DL (1.5-2.5) (1.5-2.5) (1.5-2.5) White Blood Count 10.2 TH/MM3 13.0 TH/MM3 (4.0-11.0) (4.0-11.0) Red Blood Count 3.04 MIL/MM3 2.97 MIL/MM3 (4.00-5.30) (4.00-5.30) Hemoglobin 9.3 GM/DL 8.9 GM/DL (11.6-15.3) (11.6-15.3) Hematocrit 28.2 % 27.5 % (35.0-46.0) (35.0-46.0) Mean Corpuscular Volume 92.8 FL 92.5 FL (80.0-100.0) (80.0-100.0) Mean Corpuscular Hemoglobin 30.5 PG 29.9 PG (27.0-34.0) (27.0-34.0) Mean Corpuscular Hemoglobin 32.9 % 32.3 % Concent (32.0-36.0) (32.0-36.0) Red Cell Distribution Width 19.7 % 20.5 % (11.6-17.2) (11.6-17.2) Platelet Count 135 TH/MM3 162 TH/MM3 (150-450) (150-450) Mean Platelet Volume 10.6 FL 10.3 FL (7.0-11.0) (7.0-11.0) Neutrophils (%) (Auto) 81.5 % 83.4 % (16.0-70.0) (16.0-70.0) Lymphocytes (%) (Auto) 11.2 % 9.4 % (9.0-44.0) (9.0-44.0) Monocytes (%) (Auto) 5.9 % (0.0-8.0) 6.2 % (0.0-8.0) Eosinophils (%) (Auto) 1.1 % (0.0-4.0) 0.9 % (0.0-4.0) Basophils (%) (Auto) 0.3 % (0.0-2.0) 0.1 % (0.0-2.0) Neutrophils # (Auto) 8.3 TH/MM3 10.8 TH/MM3 (1.8-7.7) (1.8-7.7) Lymphocytes # (Auto) 1.1 TH/MM3 1.2 TH/MM3 (1.0-4.8) (1.0-4.8) Monocytes # (Auto) 0.6 TH/MM3 0.8 TH/MM3 (0-0.9) (0-0.9) Eosinophils # (Auto) 0.1 TH/MM3 0.1 TH/MM3 (0-0.4) (0-0.4) Basophils # (Auto) 0.0 TH/MM3 0.0 TH/MM3 (0-0.2) (0-0.2) CBC Comment AUTO DIFF AUTO DIFF Differential Comment AUTO DIFF FINAL DIFF CONFIRMED MANUAL Ovalocytes 1+ (NORMAL) Lactic Acid Level 2.3 mmol/L (0.4-2.0) Thyroid Stimulating Hormone 39.300 uIU/ML 3rd Gen (0.358-3.740) Differential Total Cells 100 Counted Neutrophils % (Manual) 83 % (16-70) Band Neutrophils % 1 % (0-6) Lymphocytes % 10 % (9-44) Monocytes % 1 % (0-8) Neutrophils # (Manual) 11.6 TH/MM3 (1.8-7.7) Metamyelocytes 2 % (0-1) Myelocytes 2 % (0-0) Promyelocytes 1 % (0-0) Platelet Estimate NORMAL (NORMAL) Platelet Morphology Comment NORMAL (NORMAL) Result Diagram: 05/08/16 0544 05/08/16 0544 Microbiology Microbiology Date/Time Procedure Status Source Growth 05/07/16 07:30 Aerobic Blood Culture - Preliminary Resulted Blood Peripheral NO GROWTH IN 1 DAY 05/07/16 07:30 Anaerobic Blood Culture - Preliminary Resulted Blood Peripheral NO GROWTH IN 1 DAY 05/07/16 07:38 Aerobic Blood Culture - Preliminary Resulted Blood Peripheral NO GROWTH IN 1 DAY 05/07/16 07:38 Anaerobic Blood Culture - Preliminary Resulted Blood Peripheral NO GROWTH IN 1 DAY Assessment and Plan Disease Oriented Problem List: (1) Pneumonia Comment: likely aspiration (2) Alzheimer disease Comment: End-stage, with multiple infections, aspiration, nonambulatory, nearly nonverbal (3) BipolarII (4) UTI (urinary tract infection) (5) Hypernatremia Symptom Scale: Pertinent Non-Medical Issues Psychosocial: Long-term [facility] resident Spiritual: Legal: The patient lacks capacity for decision-making and will not regain that capacity. Her son has been functioning as of care proxy decision-maker. Ethical issues impacting care: None. . Important Contacts Son: Luis Fernando Corona [phone] or CELL phone: [phone] . Prognosis 85 with dementia, aspiration pneumonia, multiple hospitalization, and she is clearly end-stage. Would be appropriate for hospice should goals of care be on comfort measures only. . Code Status: No Code Plan == DO NOT RESUSCITATE == DECISION-MAKING: The patient lacks capacity to make medical decisions, and will not regain that capacity; son Luis Fernando has been functioning as proxy decision- maker.. == GOALS:: The patient's son has been difficult to reach at times. He has confirmed DNR status previously. 05/08/16 we discussed hospice options, as it appears she is definitely on a downward trajectory and would be hospice eligible at this time. His decision is to continue working with her "to get her eating better and get her stronger," but he agrees that if he does not see a turnaround within the next couple weeks he will add hospice services to her care at the nursing facility. == SYMPTOMS: The agitation seems to have subsided == Palliative Care will continue to follow the patient during this hospitalization. .. Time Spent Total Floor Time (mins): 38 Face to Face Time (mins): 20 >50% Counseling/Coord of Care: Yes Attestation To help prompt me to consider important information that might be impacting today's encounter and assessment, information from prior notes written by myself or my colleagues may have been "brought forward" into today's note. My signature on this note, however, is an attestation that I personally performed the exam, history, and/or decision-making noted today, and, unless otherwise indicated, the interactions with patient, family, and staff as well as the review of records all occurred today. I also attest that the listed assessment and stated plan reflect my best clinical judgment today based on the combination of historical information, prior notes, and today's exam/ interactions. When time spent is documented, it refers only to time spent today by the signer, or if indicated, combined time spent today by collaborating physician/nurse practitioner. Helen Esposito MD May 08, 2016 16:48
[2016-05-08] MEDS: D5-1/2 NS + KCL 10 MEQ INJ 1,000 ML IV SCH (17:28)
[2016-05-08 20:00] VITALS: BP 101/74; PULSE 85; RESP 18; TEMP 96.9; O2SAT 94
[2016-05-08] MEDS: MIRTAZAPINE 15 MG TAB PO SCH (21:27)
[2016-05-09] VITALS: BP 113/52; PULSE 81; RESP 18; TEMP 97.1; O2SAT 95
[2016-05-09 04:00] VITALS: BP 113/53; PULSE 72; RESP 18; TEMP 97.1; O2SAT 94
[2016-05-09] MEDS: LEVOTHYROXINE SODIUM 88 MCG TAB PO SCH (04:31)
[2016-05-09] MEDS: HEPARIN SODIUM - SQ 10,000 UNITS/ML VIAL SQ SCH ×3 (04:31→21:17)
[2016-05-09] MEDS: LEVOTHYROXINE SODIUM 100 MCG TAB PO SCH (04:32)
[2016-05-09] MEDS: D5-1/2 NS + KCL 10 MEQ INJ 1,000 ML IV SCH (04:34)
[2016-05-09] MEDS: LORazepam 2 MG/ML VIAL IV PUSH PRN (06:17)
[2016-05-09 08:00] VITALS: BP 109/51; PULSE 66; RESP 18; TEMP 96.2; O2SAT 94
[2016-05-09] MEDS: CLOPIDOGREL 75 MG TAB PO SCH (08:08)
[2016-05-09] MEDS: PRAVASTATIN SOD 10 MG TAB PO SCH (08:08)
[2016-05-09] MEDS: MULTIVITAMINS/MINERALS THERAPEUTIC TAB PO SCH (08:08)
[2016-05-09] MEDS: DOCUSATE SODIUM 50 MG/SENNA 8.6 MG TAB PO SCH ×2 (08:09→21:17)
[2016-05-09] MEDS: PANTOPRAZOLE SOD 20 MG DELAYED RELEASE TAB PO SCH (08:09)
[2016-05-09] MEDS: AMOXICILLIN/CLAVULANATE K 875 MG TAB PO SCH ×2 (08:09→21:16)
[2016-05-09] MEDS: DIVALPROEX SODIUM DELAYED RELEASE 250 MG TAB PO SCH ×2 (08:10→21:16)
[2016-05-09] MEDS: LACTULOSE SYRUP 20 GM/30 ML CUP PO SCH ×2 (08:10→21:16)
[2016-05-09] MEDS: SODIUM CHLORIDE 0.9% FLUSH 5 ML FLUSH FLUSH SCH ×2 (08:10→21:17)
[2016-05-09] MEDS: POLYETHYLENE GLYCOL 17 GM PKG PO SCH (08:10)
--- NOTE | 2016-05-09 08:25 | HHI.PR ---
Subjective Remarks Follow-up dementia. Consumed 87% of breakfast but erratic oral intake. Per palliative care, son wants to continue aggressive treatment and will consider hospice if she declines. Discussed with RN Objective Vitals Vital Signs Date Time Temp Pulse Resp B/P Pulse Ox O2 Delivery O2 Flow Rate FiO2 05/09/16 04:00 97.1 72 18 113/53 94 05/09/16 00:00 97.1 81 18 113/52 95 05/08/16 20:00 96.9 85 18 101/74 94 05/08/16 16:00 95.9 75 18 105/45 95 05/08/16 12:00 96.6 83 20 113/60 95 05/08/16 09:00 97.4 76 20 106/50 96 I/O 05/08/16 05/08/16 05/08/16 05/09/16 05/09/16 05/09/16 07:00 15:00 23:00 07:00 15:00 23:00 Intake Total 20 ml 240 ml 50 ml Output Total 250 ml 150 ml 150 ml 150 ml Balance -250 ml -130 ml 90 ml -100 ml Intake Oral 20 ml 240 ml 50 ml Output Urine Total 250 ml 150 ml 150 ml 150 ml Result Diagram: 05/08/1644 05/08/1644 Objective Remarks GENERAL: This is frail eldely pt , in nad skin : multiple wound on LEs CARDIOVASCULAR: Regular rate and rhythm without murmurs, gallops, or rubs. RESPIRATORY: Clear to auscultation. Breath sounds equal bilaterally. No wheezes , rales, or rhonchi. GASTROINTESTINAL: Abdomen soft, non-tender, nondistended. Normal active bowel sounds MUSCULOSKELETAL: Extremities without clubbing, cyanosis, or edema. RUE swollen from IVF which is improving NEURO: Awake and talking but confused. Moves all ext Procedures None A/P Assessment and Plan Failure to thrive/ hypernatremia The pt presents with a sodium level of 183. mostly poor oral intake , poor access to water . She has progressive dementia and has been hospitalized frequently over the past two years. There is concern for aspiration. - D5W correction should not exceed 8-10 mmol/24 h and follow BMP. Her sodium is worse today. - PT/OT/ST. - Palliative care consulted. Son does not know what to do, does not want PEG and hospice. - case management consult. Aspiration pneumonia with sepsis (elevated heart rate, respiratory rate and white count) CXR with infiltrate in right upper lung. The pt has progressive dementia. -Pured diet, aspiration precautions - blood culture x 2 negative to date. - sputum culture and gram stain ordered. - Ct Augmentin till May 13 - Stable leukocytosis UTI The pt has a history of UTIs. UA is indicative of infection. Culture growing Morganella -Ct Augmentin discontinue Rocephin Hypothermia secondary to hypothyroidism and/or possible sepsis -Improved follow-up blood culture NGTD -Warming blanket Acute renal failure on chronic kidney disease stage II Prerenal s/t decreased PO intake. Dietitian consulted. Ensure. Son undecided on TF - IVFs. - follow BMP and avoid nephrotoxic agents. - Improving Hypokalemia. Replace. Repeat BMP in the morning Hypotension S/t dehydration. - hold antihypertensive including Lasix. - IVFs. Sacral decubitus. Wound care. Keep Frederick catheter placed 04/30/16 Hypothyroidism. Increase Synthroid to a total of 188 g daily recheck TSH in 6 weeks PPx: Heparin Discharge Planning Not ready for discharge, high likelihood of readmission 2/2 to poor po leading to dehydration. Son does not want PEG and wont consider Hospice. Consider transfer to rehabilitation tomorrow if oral intake improves and sodium levels stable Obinna Buenrostro MD May 09, 2016 08:25
[2016-05-09] MEDS: SODIUM HYPOCHLORITE 0.125% 500 ML BTL TOPICAL SCH ×2 (11:44→21:00)
[2016-05-09 12:00] VITALS: BP 141/63; PULSE 77; RESP 24; TEMP 96.1; O2SAT 98
[2016-05-09 12:26] LABS: AUTOMATED NEUTROPHIL # 11.6 TH/MM3 (1.8-7.7); BASOPHIL % 0.3 % (0.0-2.0); EOSINOPHIL # 0.1 TH/MM3 (0-0.4); EOSINOPHIL % 0.7 % (0.0-4.0); HEMATOCRIT 28.2 % (35.0-46.0); LYMPHOCYTE # 1.2 TH/MM3 (1.0-4.8); MEAN CORPUSCULAR HEMOGLOBIN 30.4 PG (27.0-34.0); MEAN CORPUSCULAR HGB CONC 32.7 % (32.0-36.0); PLATELET COUNT 159 TH/MM3 (150-450); RED BLOOD COUNT 3.04 MIL/MM3 (4.00-5.30); RED CELL DISTRIBUTION WIDTH 21.3 % (11.6-17.2); WHITE BLOOD COUNT 13.8 TH/MM3 (4.0-11.0)
[2016-05-09 12:27] LABS: HEMO FLAGS AUTO DIFF
[2016-05-09 12:38] LABS: BICARBONATE 25.4 MEQ/L (21.0-32.0); MAGNESIUM 2.9 MG/DL (1.5-2.5); POTASSIUM 3.7 MEQ/L (3.5-5.1)
[2016-05-09] MEDS: D5W + KCL 20 MEQ INJ 1,000 ML IV SCH (13:30)
[2016-05-09 13:34] LABS: EOSINOPHILS 1 % (0-4); METAMYELOCYTES 1 % (0-1); MYELOCYTES 1 % (0-0); NEUTROPHIL # MANUAL DIFF 12.6 TH/MM3 (1.8-7.7); PLATELET ESTIMATE SMEAR NORMAL (NORMAL); PLATELET MORPHOLOGY NORMAL (NORMAL); POLYS (SEG NEUTROPHILS) 89 % (16-70); SCAN/DIFF FINAL DIFF MANUAL; WBC DIFF SAMPLE 100
[2016-05-09 13:36] LABS: STOMATOCYTES 1+ (NORMAL)
[2016-05-09] MEDS ORDERED: SYNT88TA PO (15:43)
[2016-05-09] MEDS ORDERED: LEVO.1 PO (15:43)
[2016-05-09 16:00] VITALS: BP 94/44; PULSE 72; RESP 18; TEMP 96.3; O2SAT 97
[2016-05-09 20:00] VITALS: BP 101/71; PULSE 86; RESP 18; TEMP 96.8; O2SAT 95
[2016-05-09] MEDS: MIRTAZAPINE 15 MG TAB PO SCH (21:16)
[2016-05-10] VITALS: BP 110/67; PULSE 76; RESP 18; TEMP 96.7; O2SAT 94
[2016-05-10] MEDS: D5W + KCL 20 MEQ INJ 1,000 ML IV SCH ×2 (03:48→18:06)
[2016-05-10 04:00] VITALS: BP 145/75; PULSE 77; RESP 16; TEMP 96; O2SAT 95
[2016-05-10] MEDS: HEPARIN SODIUM - SQ 10,000 UNITS/ML VIAL SQ SCH ×2 (04:00→12:31)
[2016-05-10] MEDS: LEVOTHYROXINE SODIUM 88 MCG TAB PO SCH ×2 (04:27→04:35)
[2016-05-10] MEDS: LEVOTHYROXINE SODIUM 100 MCG TAB PO SCH (04:27)
[2016-05-10] MEDS: SODIUM HYPOCHLORITE 0.125% 500 ML BTL TOPICAL SCH ×2 (06:00→09:55)
[2016-05-10 07:51] LABS: AUTOMATED NEUTROPHIL # 8.3 TH/MM3 (1.8-7.7); BASOPHIL # 0.1 TH/MM3 (0-0.2); BASOPHIL % 0.6 % (0.0-2.0); EOSINOPHIL # 0.2 TH/MM3 (0-0.4); EOSINOPHIL % 1.7 % (0.0-4.0); LYMPH % 13.2 % (9.0-44.0); LYMPHOCYTE # 1.4 TH/MM3 (1.0-4.8); MEAN CELL VOLUME 94.2 FL (80.0-100.0); MEAN CORPUSCULAR HEMOGLOBIN 30.6 PG (27.0-34.0); MEAN CORPUSCULAR HGB CONC 32.5 % (32.0-36.0); NEUT % 77.5 % (16.0-70.0); PLATELET COUNT 162 TH/MM3 (150-450); RED BLOOD COUNT 2.97 MIL/MM3 (4.00-5.30); RED CELL DISTRIBUTION WIDTH 22.6 % (11.6-17.2); WHITE BLOOD COUNT 10.7 TH/MM3 (4.0-11.0)
[2016-05-10 08:00] VITALS: BP 123/80; PULSE 69; RESP 16; TEMP 97; O2SAT 99
[2016-05-10 08:01] LABS: HEMO FLAGS AUTO DIFF
[2016-05-10 08:16] LABS: MAGNESIUM 2.9 MG/DL (1.5-2.5); POTASSIUM 3.4 MEQ/L (3.5-5.1)
[2016-05-10] MEDS: MULTIVITAMINS/MINERALS THERAPEUTIC TAB PO SCH (09:00)
[2016-05-10] MEDS: CLOPIDOGREL 75 MG TAB PO SCH (09:00)
[2016-05-10] MEDS: POLYETHYLENE GLYCOL 17 GM PKG PO SCH (09:00)
[2016-05-10] MEDS: PANTOPRAZOLE SOD 20 MG DELAYED RELEASE TAB PO SCH (09:00)
[2016-05-10] MEDS: DOCUSATE SODIUM 50 MG/SENNA 8.6 MG TAB PO SCH ×2 (09:00→21:00)
[2016-05-10] MEDS: LACTULOSE SYRUP 20 GM/30 ML CUP PO SCH ×2 (09:00→21:00)
[2016-05-10 09:12] LABS: EOSINOPHILS 1 % (0-4); MYELOCYTES 3 % (0-0); NEUTROPHIL # MANUAL DIFF 9.7 TH/MM3 (1.8-7.7); POLYS (SEG NEUTROPHILS) 88 % (16-70); WBC DIFF SAMPLE 100
[2016-05-10 09:13] LABS: PLATELET ESTIMATE SMEAR NORMAL (NORMAL); PLATELET MORPHOLOGY NORMAL (NORMAL); SCAN/DIFF FINAL DIFF MANUAL
[2016-05-10] MEDS: SODIUM CHLORIDE 0.9% FLUSH 5 ML FLUSH FLUSH SCH ×2 (09:54→21:00)
[2016-05-10] MEDS ORDERED: POTASSIUM CL 40 MEQ/30 ML LIQ UDC PO ONE (11:00)
[2016-05-10] MEDS ORDERED: SOD PHOSPHATE/SOD BIPHOSPHATE (ADULT) ENEMA 133ML PR PRN (11:15)
[2016-05-10] MEDS ORDERED: SENN1TAB PO (11:28)
[2016-05-10] MEDS ORDERED: MEGE40SU PO (11:28)
--- NOTE | 2016-05-10 11:28 | HHI.PR ---
Subjective Remarks Follow-up hypernatremia. She does not want to be bothered. Noted bilateral lower extremity swelling will order Doppler sonogram discussed with her hand. Discussion with palliative care physician, son wants to continue working with her "to get her eating better and get her stronger," but he agrees that if he does not see a turnaround within the next couple weeks he will add hospice services to her care at the nursing facility. Objective Vitals Vital Signs Date Time Temp Pulse Resp B/P Pulse Ox O2 Delivery O2 Flow Rate FiO2 05/10/16 08:00 97.0 69 16 123/80 99 05/10/16 04:00 96.0 77 16 145/75 95 05/10/16 00:00 96.7 76 18 110/67 94 05/09/16 20:00 96.8 86 18 101/71 95 05/09/16 16:00 96.3 72 18 94/44 97 05/09/16 12:00 96.1 77 24 141/63 98 I/O 05/09/16 05/09/16 05/09/16 05/10/16 05/10/16 05/10/16 07:00 15:00 23:00 07:00 15:00 23:00 Intake Total 50 ml 140 ml 240 ml Output Total 150 ml 200 ml 150 ml 200 ml Balance -100 ml -60 ml 90 ml -200 ml Intake Oral 50 ml 120 ml 240 ml IV Total 20 ml Output Urine Total 150 ml 200 ml 150 ml 200 ml Result Diagram: 05/10/16 0620 05/10/16 0620 Objective Remarks GENERAL: This is frail eldely pt , in nad skin : multiple wound on LEs CARDIOVASCULAR: Regular rate and rhythm without murmurs, gallops, or rubs. RESPIRATORY: Clear to auscultation. Breath sounds equal bilaterally. No wheezes , rales, or rhonchi. GASTROINTESTINAL: Abdomen soft, non-tender, nondistended. Normal active bowel sounds MUSCULOSKELETAL: Extremities without clubbing, cyanosis but with bilateral lower extremity edema. RUE swollen from IVF which is improving NEURO: Awake and talking but confused. Does not want to be bothered. Moves all ext Procedures None A/P Assessment and Plan Failure to thrive/ hypernatremia The pt presents with a sodium level of 183. mostly poor oral intake , poor access to water . She has progressive dementia and has been hospitalized frequently over the past two years. There is concern for aspiration. - D5W correction should not exceed 8-10 mmol/24 h and follow BMP. Her sodium is stable today. - PT/OT/ST. - Palliative care consulted. Son does not know what to do, does not want PEG and hospice. Discussion with palliative care physician, son wants to continue working with her "to get her eating better and get her stronger," but he agrees that if he does not see a turnaround within the next couple weeks he will add hospice services to her care at the nursing facility. - case management consult. Aspiration pneumonia with sepsis (elevated heart rate, respiratory rate and white count) CXR with infiltrate in right upper lung. The pt has progressive dementia. -Pured diet, aspiration precautions - blood culture x 2 negative to date. - sputum culture and gram stain ordered. - Ct Augmentin till May 13 - Stable leukocytosis UTI The pt has a history of UTIs. UA is indicative of infection. Culture growing Morganella -Ct Augmentin discontinue Rocephin Hypothermia secondary to hypothyroidism and/or possible sepsis -Improved follow-up blood culture NGTD -Warming blanket Acute renal failure on chronic kidney disease stage II Prerenal s/t decreased PO intake. Dietitian consulted. Ensure. Son undecided on TF - IVFs. - follow BMP and avoid nephrotoxic agents. - Improving Hypokalemia. Replace. Monitor BMP Hypotension S/t dehydration. - hold antihypertensive including Lasix. - IVFs. Sacral decubitus. Wound care. Keep Frederick catheter placed 04/30/16 Hypothyroidism. Increase Synthroid to a total of 188 g daily recheck TSH in 6 weeks Bilateral lower extremity edema secondary to low albumin. Check Doppler to rule out DVT PPx: Heparin Discharge Planning Discharge if Doppler negative for DVT Obinna Buenrostro MD May 10, 2016 11:28
[2016-05-10] MEDS ORDERED: HEPA10003 SQ (11:32)
[2016-05-10 12:00] VITALS: BP 100/48; PULSE 63; RESP 16; TEMP 98.5; O2SAT 99
--- NOTE | 2016-05-10 12:22 | HHI.HCPN ---
Reason for visit a. To assist with evaluation and management of symptoms including: Agitation b. To assist medical decision maker(s) with: better understanding of current medical conditions; weighing benefits/burdens of medical treatment options; making medical treatment decisions. . Subjective/Interval History INTERVAL NOTE: The patient remains somewhat alert, but remains profoundly weak, and is taking very little orally. The [facility] reports that the patient takes only a couple bites of food with each meal and a few sips of Ensure. She remains afebrile. Sodium is 150 today. The patient will be sent back to her nursing facility, with a son has said he will enlist hospice services if she continues to decline. . Advance Directives Living Will: Completed, but not made available Health Care Surrogate: Completed, but not made available Durable Power of Speech Therapist: Completed, but not made available Objective Vital Signs Date Time Temp Pulse Resp B/P Pulse Ox O2 Delivery O2 Flow Rate FiO2 05/10/16 08:00 97.0 69 16 123/80 99 05/10/16 04:00 96.0 77 16 145/75 95 05/10/16 00:00 96.7 76 18 110/67 94 05/09/16 20:00 96.8 86 18 101/71 95 05/09/16 16:00 96.3 72 18 94/44 97 Physical Exam CONSTITUTIONAL/GENERAL: This is frail elderly lady, weak. Not agitated. ENT: Has hearing deficit. Nose without bleeding or purulent drainage. Throat without visible erythema, exudates, masses, or lesions. NECK: Trachea midline. Supple, nontender. No palpable thyroid enlargement or nodularity. CARDIOVASCULAR: Regular rate and rhythm without murmurs, gallops, or rubs. No JVD. Peripheral pulses symmetric. RESPIRATORY/CHEST: Symmetric, unlabored respirations. Clear to auscultation. Breath sounds equal bilaterally. No wheezes, rales, or rhonchi. GASTROINTESTINAL: Abdomen soft, non-tender, nondistended. No hepato-splenomegaly , or palpable masses. No guarding. Bowel sounds present. MUSCULOSKELETAL: Extremities without clubbing, cyanosis, or edema. NEUROLOGICAL: Sleeping but awakens, does not follow commands, does not speak PSYCHIATRIC: No obvious anxiety/depression, agitation. . Diagnostic Tests Laboratory Laboratory Tests Test 05/08/16 05/09/16 05/10/16 05:44 11:30 06:20 White Blood Count 13.0 TH/MM3 13.8 TH/MM3 10.7 TH/MM3 (4.0-11.0) (4.0-11.0) (4.0-11.0) Red Blood Count 2.97 MIL/MM3 3.04 MIL/MM3 2.97 MIL/MM3 (4.00-5.30) (4.00-5.30) (4.00-5.30) Hemoglobin 8.9 GM/DL 9.2 GM/DL 9.1 GM/DL (11.6-15.3) (11.6-15.3) (11.6-15.3) Hematocrit 27.5 % 28.2 % 28.0 % (35.0-46.0) (35.0-46.0) (35.0-46.0) Mean Corpuscular Volume 92.5 FL 93.0 FL 94.2 FL (80.0-100.0) (80.0-100.0) (80.0-100.0) Mean Corpuscular Hemoglobin 29.9 PG 30.4 PG 30.6 PG (27.0-34.0) (27.0-34.0) (27.0-34.0) Mean Corpuscular Hemoglobin 32.3 % 32.7 % 32.5 % Concent (32.0-36.0) (32.0-36.0) (32.0-36.0) Red Cell Distribution Width 20.5 % 21.3 % 22.6 % (11.6-17.2) (11.6-17.2) (11.6-17.2) Platelet Count 162 TH/MM3 159 TH/MM3 162 TH/MM3 (150-450) (150-450) (150-450) Mean Platelet Volume 10.3 FL 10.1 FL 9.6 FL (7.0-11.0) (7.0-11.0) (7.0-11.0) Neutrophils (%) (Auto) 83.4 % 84.0 % 77.5 % (16.0-70.0) (16.0-70.0) (16.0-70.0) Lymphocytes (%) (Auto) 9.4 % 9.0 % 13.2 % (9.0-44.0) (9.0-44.0) (9.0-44.0) Monocytes (%) (Auto) 6.2 % (0.0-8.0) 6.0 % (0.0-8.0) 7.0 % (0.0-8.0) Eosinophils (%) (Auto) 0.9 % (0.0-4.0) 0.7 % (0.0-4.0) 1.7 % (0.0-4.0) Basophils (%) (Auto) 0.1 % (0.0-2.0) 0.3 % (0.0-2.0) 0.6 % (0.0-2.0) Neutrophils # (Auto) 10.8 TH/MM3 11.6 TH/MM3 8.3 TH/MM3 (1.8-7.7) (1.8-7.7) (1.8-7.7) Lymphocytes # (Auto) 1.2 TH/MM3 1.2 TH/MM3 1.4 TH/MM3 (1.0-4.8) (1.0-4.8) (1.0-4.8) Monocytes # (Auto) 0.8 TH/MM3 0.8 TH/MM3 0.8 TH/MM3 (0-0.9) (0-0.9) (0-0.9) Eosinophils # (Auto) 0.1 TH/MM3 0.1 TH/MM3 0.2 TH/MM3 (0-0.4) (0-0.4) (0-0.4) Basophils # (Auto) 0.0 TH/MM3 0.0 TH/MM3 0.1 TH/MM3 (0-0.2) (0-0.2) (0-0.2) CBC Comment AUTO DIFF AUTO DIFF AUTO DIFF Differential Total Cells 100 100 100 Counted Neutrophils % (Manual) 83 % (16-70) 89 % (16-70) 88 % (16-70) Band Neutrophils % 1 % (0-6) Lymphocytes % 10 % (9-44) 6 % (9-44) 4 % (9-44) Monocytes % 1 % (0-8) 2 % (0-8) 4 % (0-8) Neutrophils # (Manual) 11.6 TH/MM3 12.6 TH/MM3 9.7 TH/MM3 (1.8-7.7) (1.8-7.7) (1.8-7.7) Metamyelocytes 2 % (0-1) 1 % (0-1) Myelocytes 2 % (0-0) 1 % (0-0) 3 % (0-0) Promyelocytes 1 % (0-0) Differential Comment FINAL DIFF FINAL DIFF FINAL DIFF MANUAL MANUAL MANUAL Platelet Estimate NORMAL NORMAL NORMAL (NORMAL) (NORMAL) (NORMAL) Platelet Morphology Comment NORMAL NORMAL NORMAL (NORMAL) (NORMAL) (NORMAL) Sodium Level 149 MEQ/L 151 MEQ/L 150 MEQ/L (136-145) (136-145) (136-145) Potassium Level 3.3 MEQ/L 3.7 MEQ/L 3.4 MEQ/L (3.5-5.1) (3.5-5.1) (3.5-5.1) Chloride Level 116 MEQ/L 118 MEQ/L 117 MEQ/L (98-107) (98-107) (98-107) Carbon Dioxide Level 25.5 MEQ/L 25.4 MEQ/L 27.0 MEQ/L (21.0-32.0) (21.0-32.0) (21.0-32.0) Anion Gap 8 MEQ/L (5-15) 8 MEQ/L (5-15) 6 MEQ/L (5-15) Blood Urea Nitrogen 17 MG/DL (7-18) 14 MG/DL (7-18) 12 MG/DL (7-18) Creatinine 0.77 MG/DL 0.79 MG/DL 0.62 MG/DL (0.50-1.00) (0.50-1.00) (0.50-1.00) Estimat Glomerular Filtration 72 ML/MIN (>89) 70 ML/MIN (>89) 92 ML/MIN (>89) Rate Random Glucose 55 MG/DL 84 MG/DL 82 MG/DL (74-106) (74-106) (74-106) Calcium Level 8.0 MG/DL 8.2 MG/DL 8.0 MG/DL (8.5-10.1) (8.5-10.1) (8.5-10.1) Magnesium Level 2.8 MG/DL 2.9 MG/DL 2.9 MG/DL (1.5-2.5) (1.5-2.5) (1.5-2.5) Eosinophils % 1 % (0-4) 1 % (0-4) Stomatocytes 1+ (NORMAL) Basophilic Stippling FAINT (NORMAL) Result Diagram: 05/10/16 0620 05/10/16 0620 Assessment and Plan Disease Oriented Problem List: (1) Pneumonia Comment: likely aspiration (2) Alzheimer disease Comment: End-stage, with multiple infections, aspiration, nonambulatory, nearly nonverbal (3) BipolarII (4) UTI (urinary tract infection) (5) Hypernatremia Symptom Scale: Pertinent Non-Medical Issues Psychosocial: Long-term long-term resident Spiritual: Legal: The patient lacks capacity for decision-making and will not regain that capacity. Her son has been functioning as of care proxy decision-maker. Ethical issues impacting care: None. . Important Contacts Son: Luis Fernando Corona [phone] or CELL phone: [phone] . Prognosis 85 with dementia, aspiration pneumonia, multiple hospitalization, and she is clearly end-stage. Would be appropriate for hospice should goals of care be on comfort measures only. . Code Status: No Code Plan == DO NOT RESUSCITATE == DECISION-MAKING: The patient lacks capacity to make medical decisions, and will not regain that capacity; son Luis Fernando has been functioning as proxy decision- maker.. == GOALS:: The patient's son has been difficult to reach at times. He has confirmed DNR status previously. 05/08/16 we discussed hospice options, as it appears she is definitely on a downward trajectory and would be hospice eligible at this time. The son's decision is to continue working with her "to get her eating better and get her stronger," but he agrees that if he does not see a turnaround within the next couple weeks he will add hospice services to her care at the nursing facility. == SYMPTOMS: The agitation seems to have subsided == Palliative Care will continue to follow the patient during this hospitalization. .. Time Spent Total Floor Time (mins): 28 Face to Face Time (mins): 16 >50% Counseling/Coord of Care: Yes (d/w Dr. Buenrostro) Attestation To help prompt me to consider important information that might be impacting today's encounter and assessment, information from prior notes written by myself or my colleagues may have been "brought forward" into today's note. My signature on this note, however, is an attestation that I personally performed the exam, history, and/or decision-making noted today, and, unless otherwise indicated, the interactions with patient, family, and staff as well as the review of records all occurred today. I also attest that the listed assessment and stated plan reflect my best clinical judgment today based on the combination of historical information, prior notes, and today's exam/ interactions. When time spent is documented, it refers only to time spent today by the signer, or if indicated, combined time spent today by collaborating physician/nurse practitioner. Helne Esposito MD May 10, 2016 12:22
--- NOTE | 2016-05-10 13:15 | RADRPT ---
EXAM DATE/TIME: 05/10/2016 11:41 [facility] COMPARISON: No previous studies available for comparison. INDICATIONS : Bilateral leg swelling. MEDICAL HISTORY : Hypercholesterolemia. Arthritis. Hernia, hiatal. Legally blind. CVA. Confusion. Chest pain. Dyspnea. GERD. Overactive bladder. HTN. Gait problems. Anxiety. SURGICAL HISTORY : Appendectomy.Cholecystectomy. Hysterectomy.Bilateral cataract surgery. Hernia repair. Right shoulder surgery x2. ORIF right femur. Left knee replacement. Partial thyroidectomy. Blood transfusions. ENCOUNTER: Initial ACUITY: 1 day PAIN SCORE: Non-responsive LOCATION: Bilateral leg. TECHNIQUE: Venous ultrasound of the left and right leg was performed from the inguinal ligament to the proximal calf. Real-time, color Doppler and spectral tracing, compression and augmentation techniques were us ed. FINDINGS: RIGHT LEG: There appears to be a thrombus in the right iliac/common femoral vein. Incomplete compression also no clinton. No echogenic clot is seen in the lumen of the femoral, popliteal, and posterior tibial veins. LEFT LEG: There is thrombus in the left common femoral vein extending into the peroneal vein. CONCLUSION: Deep venous thrombosis in both lower extremities Luis Enrique Hwang MD on May 10, 2016 at 13:11 Board Certified Radiologist. This report was verified electronically.
--- NOTE | 2016-05-10 13:26 | HHI.DS ---
Discharge Summary Admission Date Apr 30, 2016 at 23:44 Discharge Date: May 11, 2016 Admitting Diagnosis HyperNa, AMS, AMBROSIO (1) Dehydration ICD Code: E86.0 Diagnosis: Principal (2) Acute renal failure ICD Code: N17.9 Diagnosis: Principal (3) Hypernatremia ICD Code: E87.0 Diagnosis: Principal (4) Alzheimer disease ICD Code: G30.9 Diagnosis: Principal Procedures None Brief History - From Admission The patient is an 85-year-old female with past medical history of dementia who is presenting to the hospital from her shelter facility for worsening mental status and abnormal labs. The patient has been speaking less than usual. She has been acting withdrawn. She was unable to give a history but her son was at the bedside and tried to explain the patient's recent pattern of hospitalization and shelter facilities. The patient's son said that staff at the senior care were concerned that the patient was silently aspirating. He reports that the patient has not been eating or drinking well lately. He says that the patient has been hospitalized for high sodium levels in the past. The patient's son has thought about the patient obtaining a feeding tube but he does not seem to want to pursue that option at this time. He mentions that the patient has had urinary tract infections before. He mentioned that his mother was on a ventilator for pneumonia when she was in her 70s. The patient was alert but repeating the same words over and over again. She was reluctant to be examined. The patient's son said he has been requesting that the senior care reduce the patient's sedating medications. CBC/BMP: 05/10/16 0620 05/10/16 0620 Significant Findings Laboratory Tests Test 05/08/16 05/09/16 05/10/16 05:44 11:30 06:20 White Blood Count 13.0 TH/MM3 13.8 TH/MM3 (4.0-11.0) (4.0-11.0) Red Blood Count 2.97 MIL/MM3 3.04 MIL/MM3 2.97 MIL/MM3 (4.00-5.30) (4.00-5.30) (4.00-5.30) Hemoglobin 8.9 GM/DL 9.2 GM/DL 9.1 GM/DL (11.6-15.3) (11.6-15.3) (11.6-15.3) Hematocrit 27.5 % 28.2 % 28.0 % (35.0-46.0) (35.0-46.0) (35.0-46.0) Red Cell Distribution Width 20.5 % 21.3 % 22.6 % (11.6-17.2) (11.6-17.2) (11.6-17.2) Neutrophils (%) (Auto) 83.4 % 84.0 % 77.5 % (16.0-70.0) (16.0-70.0) (16.0-70.0) Neutrophils # (Auto) 10.8 TH/MM3 11.6 TH/MM3 8.3 TH/MM3 (1.8-7.7) (1.8-7.7) (1.8-7.7) Neutrophils % (Manual) 83 % (16-70) 89 % (16-70) 88 % (16-70) Neutrophils # (Manual) 11.6 TH/MM3 12.6 TH/MM3 9.7 TH/MM3 (1.8-7.7) (1.8-7.7) (1.8-7.7) Metamyelocytes 2 % (0-1) Myelocytes 2 % (0-0) 1 % (0-0) 3 % (0-0) Promyelocytes 1 % (0-0) Sodium Level 149 MEQ/L 151 MEQ/L 150 MEQ/L (136-145) (136-145) (136-145) Potassium Level 3.3 MEQ/L 3.4 MEQ/L (3.5-5.1) (3.5-5.1) Chloride Level 116 MEQ/L 118 MEQ/L 117 MEQ/L (98-107) (98-107) (98-107) Estimat Glomerular Filtration 72 ML/MIN (>89) 70 ML/MIN (>89) Rate Random Glucose 55 MG/DL (74-106) Calcium Level 8.0 MG/DL 8.2 MG/DL 8.0 MG/DL (8.5-10.1) (8.5-10.1) (8.5-10.1) Magnesium Level 2.8 MG/DL 2.9 MG/DL 2.9 MG/DL (1.5-2.5) (1.5-2.5) (1.5-2.5) Lymphocytes % 6 % (9-44) 4 % (9-44) Stomatocytes 1+ (NORMAL) Basophilic Stippling FAINT (NORMAL) Imaging Last Impressions Lower Extremity Ultrasound 05/10/16 0000 Signed Impressions: Service Date/Time: May 11:41 - CONCLUSION: Deep venous thrombosis in both lower extremities Luis Enrique Hwang MD Chest X-Ray 04/30/16 0000 Signed Impressions: Service Date/Time: Saturday, April 30, 2016 23:51 - CONCLUSION: New Small patchy infiltrate in the peripheral right upper lung. This could indicate aspiration pneumonia. Recommend followup chest x-ray in approximately 2-3 weeks to ensure resolution. If this has not resolved in approximately 3 weeks after appropriate medical therapy, then a CT scan of the chest could be performed for further evaluation on a nonemergent outpatient basis.. Luis Fernando Black MD PE at Discharge GENERAL: This is frail eldely pt , in nad skin : multiple wound on LEs CARDIOVASCULAR: Regular rate and rhythm without murmurs, gallops, or rubs. RESPIRATORY: Clear to auscultation. Breath sounds equal bilaterally. No wheezes , rales, or rhonchi. GASTROINTESTINAL: Abdomen soft, non-tender, nondistended. Normal active bowel sounds MUSCULOSKELETAL: Extremities without clubbing, cyanosis but with bilateral lower extremity edema. RUE swollen from IVF which is improving NEURO: Awake and talking but confused. Does not want to be bothered. Moves all ext Hospital Course Failure to thrive/ hypernatremia The pt presents with a sodium level of 183. mostly poor oral intake , poor access to water . She has progressive dementia and has been hospitalized frequently over the past two years. There is concern for aspiration. - D5W correction should not exceed 8-10 mmol/24 h and follow BMP. Her sodium is stable today. - PT/OT/ST. - Palliative care consulted. Son does not know what to do, does not want PEG and hospice. Discussion with palliative care physician, son wants to continue working with her "to get her eating better and get her stronger," but he agrees that if he does not see a turnaround within the next couple weeks he will add hospice services to her care at the nursing facility. - case management consult. Aspiration pneumonia with sepsis (elevated heart rate, respiratory rate and white count) CXR with infiltrate in right upper lung. The pt has progressive dementia. -Pured diet, aspiration precautions - blood culture x 2 negative to date. - sputum culture and gram stain ordered. - Ct Augmentin till May 13 - Stable leukocytosis UTI The pt has a history of UTIs. UA is indicative of infection. Culture growing Morganella -Ct Augmentin discontinue Rocephin Hypothermia secondary to hypothyroidism and/or possible sepsis -Improved follow-up blood culture NGTD -Warming blanket Acute renal failure on chronic kidney disease stage II Prerenal s/t decreased PO intake. Dietitian consulted. Ensure. Son undecided on TF - IVFs. - follow BMP and avoid nephrotoxic agents. - Improving Hypokalemia. Replace. Monitor BMP Hypotension S/t dehydration. - hold antihypertensive including Lasix. - IVFs. Sacral decubitus. Wound care. Keep Frederick catheter placed 04/30/16 Hypothyroidism. Increase Synthroid to a total of 188 g daily recheck TSH in 6 weeks Bilateral lower extremity DVT. Continue Lovenox and switch to novel agent if compliant Pt Condition on Discharge: Stable Discharge Disposition: Discharge to SNF Discharge Time: > 30 minutes Discharge Instructions DIET: Follow Instructions for: As Tolerated, No Restrictions Speech Therapy-Diet Recommends: Pureed Additional Diet Instructions: teaspoon amouts of liquids only. NO STRAWS. Ensure 1 can po tid Activities you can perform: Regular-No Restrictions Activities to Avoid: Driving Follow up Referrals: PCP Follow-up - 1 Week New Medications: Amoxicillin-Clavulanate (Amoxicillin-Clavulanate) 875-125 mg Tab 875 MG PO Q12HR Stop date of May, Infection #12 TAB Enoxaparin Inj (Lovenox Inj) 80 mg/0.8 ML Syr 80 MG SQ Q12H Prevent Blood Clot #60 INJECTION Lactulose Liq (Lactulose Liq) 10 Gm/15 Ml Soln 30 ML PO BID Prevent Constipation #60 ML Levothyroxine (Synthroid) 100 Mcg Tab 100 MCG PO DAILY@0600 Thyroid Supplement #30 TAB Levothyroxine (Synthroid) 88 Mcg Tab 88 MCG PO DAILY@0600 Thyroid Supplement #30 TAB Megestrol Liq (Megestrol Liq) 40 Mg/Ml Susp 400 MG PO DAILY appetite #30 MG Sennosides-Docusate Sodium (Senna Plus 8.6-50 mg) 1 Tab Tab 2 TAB PO BID Prevent Constipation #60 TAB Sodium Hypochlorite Topical (Dakins Solution Quarter Strength Topical) 0.125% Soln 500 ML TOPICAL BID skin treatment #180 ML Continued Medications: Albuterol Neb (Albuterol Neb) 0.63 Mg/3 Ml Neb 0.63 MG NEB Q6HR NEB PRN SHORTNESS OF BREATH #25 Ref 0 NEBULE Ascorbic Acid (Acerola C 500) 500 Mg Wafr 500 MG CHEW DIRECTED Ref 0 WAFER Clopidogrel (Clopidogrel) 75 Mg Tab 75 MG PO DAILY Blood Clot Prevention #30 Ref [address] (D[address]ex [address]) 250 Mg Tabdr 250 MG PO BID Control Seizures #60 Ref 0 TAB Lorazepam (Ativan) 0.5 Mg Tab 0.5 MG PO Q8H PRN ANXIETY AND/OR AGITATION #9 Ref 0 TAB (This prescription has been renewed) Mirtazapine (Remeron) 15 Mg Tab 15 MG PO HS Depression Control #30 Ref 0 TAB Multiple Vitamin (Multi Vitamin) 1 Tab Tab 1 TAB PO DAILY TAB Omeprazole (Omeprazole) 20 Mg Tab 20 MG PO DAILY #30 Ref 0 TAB Pravastatin (Pravastatin) 10 Mg Tab 10 MG PO DAILY Cholesterol Management #30 Ref 0 TAB Trazodone (Trazodone) 50 Mg Tab 50 MG PO HS Control Depression #30 Ref 0 TAB Zinc Sulfate (Zinc Sulfate) 220 Mg Tab 220 MG PO DAILY Nutritional Supplement Ref 0 TAB Discontinued Medications: Levothyroxine (Levothyroxine) 175 Mcg Tab 175 MCG PO DAILY Thyroid #30 Ref 0 TAB Obinna Buenrostro MD May 10, 2016 13:26
[2016-05-10 16:00] VITALS: BP 108/64; PULSE 75; RESP 16; TEMP 95.9; O2SAT 97
[2016-05-10] MEDS: AMOXICILLIN/CLAVULANATE K 875 MG TAB PO SCH ×2 (16:08→21:00)
[2016-05-10] MEDS: DIVALPROEX SODIUM DELAYED RELEASE 250 MG TAB PO SCH ×2 (16:08→21:00)
[2016-05-10] MEDS: MEGESTROL ACETATE SUSP 400 MG/10 ML CUP PO SCH (16:09)
[2016-05-10] MEDS: PRAVASTATIN SOD 10 MG TAB PO SCH (16:09)
[2016-05-10] MEDS ORDERED: ENOXAPARIN SODIUM 80 MG/0.8 ML SYRINGE SQ SCH (18:00)
[2016-05-10 20:00] VITALS: BP 123/97; PULSE 78; RESP 18; TEMP 96.2; O2SAT 97
[2016-05-10] MEDS: MIRTAZAPINE 15 MG TAB PO SCH (21:00)
[2016-05-10] MEDS ORDERED: APIXABAN 5 MG TABLET PO SCH (21:00)
[2016-05-11] VITALS: BP 107/73; PULSE 98; RESP 19; TEMP 96.2; O2SAT 95
[2016-05-11] MEDS ORDERED: ENOXAPARIN SODIUM 80 MG/0.8 ML SYRINGE SQ ONE (00:15)
[2016-05-11] MEDS: LEVOTHYROXINE SODIUM 88 MCG TAB PO SCH (06:00)
[2016-05-11] MEDS: LEVOTHYROXINE SODIUM 100 MCG TAB PO SCH (06:00)
[2016-05-11 08:00] VITALS: BP 121/63; PULSE 70; RESP 16; TEMP 97.5; O2SAT 96
[2016-05-11] MEDS: MEGESTROL ACETATE SUSP 400 MG/10 ML CUP PO SCH (09:00)
[2016-05-11] MEDS: PRAVASTATIN SOD 10 MG TAB PO SCH (09:00)
[2016-05-11] MEDS: PANTOPRAZOLE SOD 20 MG DELAYED RELEASE TAB PO SCH (09:00)
[2016-05-11] MEDS: LACTULOSE SYRUP 20 GM/30 ML CUP PO SCH (09:00)
[2016-05-11] MEDS: POLYETHYLENE GLYCOL 17 GM PKG PO SCH (09:00)
[2016-05-11] MEDS: MULTIVITAMINS/MINERALS THERAPEUTIC TAB PO SCH (09:00)
[2016-05-11] MEDS ORDERED: ENOXAPARIN SODIUM 80 MG/0.8 ML SYRINGE SQ SCH (09:00)
[2016-05-11] MEDS: AMOXICILLIN/CLAVULANATE K 875 MG TAB PO SCH (09:39)
[2016-05-11] MEDS: DIVALPROEX SODIUM DELAYED RELEASE 250 MG TAB PO SCH (09:39)
[2016-05-11] MEDS: DOCUSATE SODIUM 50 MG/SENNA 8.6 MG TAB PO SCH (09:40)
[2016-05-11] MEDS: SODIUM CHLORIDE 0.9% FLUSH 5 ML FLUSH FLUSH SCH (09:48)
--- NOTE | 2016-05-11 10:54 | HHI.HCPN ---
Reason for visit a. To assist with evaluation and management of symptoms including: Agitation b. To assist medical decision maker(s) with: better understanding of current medical conditions; weighing benefits/burdens of medical treatment options; making medical treatment decisions. . Subjective/Interval History INTERVAL NOTE: The patient remains somewhat alert, but remains profoundly weak, and is taking very little orally.....essentially unchanged. The MANAGER OF MEDICAL reports that the patient takes only a couple bites of food with each meal and a few sips of Ensure. She remains afebrile. Sodium is 150 yesterday. The patient will be sent back to her nursing facility; Dr. Buenrostro has consulted hospice and they will meet with the patient's son today. . Advance Directives Living Will: Completed, but not made available Health Care Surrogate: Completed, but not made available Durable Power of Emergency Department: Completed, but not made available Objective Vital Signs Date Time Temp Pulse Resp B/P Pulse Ox O2 Delivery O2 Flow Rate FiO2 05/11/16 08:00 97.5 70 16 121/63 96 05/11/16 00:00 96.2 98 19 107/73 95 05/10/16 20:00 96.2 78 18 123/97 97 05/10/16 16:00 95.9 75 16 108/64 97 05/10/16 12:00 98.5 63 16 100/48 99 Intake & Output 05/11/16 05/11/16 07:00 19:00 Intake Total 480 ml 200 ml Output Total 450 ml Balance 30 ml 200 ml Intake Oral 480 ml 200 ml Output Urine Total 450 ml # Bowel Movements 0 Physical Exam CONSTITUTIONAL/GENERAL: This is frail elderly lady, weak. Not agitated. CARDIOVASCULAR: Regular rate and rhythm without murmurs, gallops, or rubs. No JVD. Peripheral pulses symmetric. RESPIRATORY/CHEST: Symmetric, unlabored respirations. Clear to auscultation. Breath sounds equal bilaterally. No wheezes, rales, or rhonchi. GASTROINTESTINAL: Abdomen soft, non-tender, nondistended. No hepato-splenomegaly , or palpable masses. No guarding. Bowel sounds present. MUSCULOSKELETAL: Extremities without clubbing, cyanosis, or edema. NEUROLOGICAL: Awake, does not follow commands, does not speak to me PSYCHIATRIC: No obvious anxiety/depression, agitation. . Diagnostic Tests Laboratory Laboratory Tests Test 05/09/16 05/10/16 11:30 06:20 White Blood Count 13.8 TH/MM3 10.7 TH/MM3 (4.0-11.0) (4.0-11.0) Red Blood Count 3.04 MIL/MM3 2.97 MIL/MM3 (4.00-5.30) (4.00-5.30) Hemoglobin 9.2 GM/DL 9.1 GM/DL (11.6-15.3) (11.6-15.3) Hematocrit 28.2 % 28.0 % (35.0-46.0) (35.0-46.0) Mean Corpuscular Volume 93.0 FL 94.2 FL (80.0-100.0) (80.0-100.0) Mean Corpuscular Hemoglobin 30.4 PG 30.6 PG (27.0-34.0) (27.0-34.0) Mean Corpuscular Hemoglobin 32.7 % 32.5 % Concent (32.0-36.0) (32.0-36.0) Red Cell Distribution Width 21.3 % 22.6 % (11.6-17.2) (11.6-17.2) Platelet Count 159 TH/MM3 162 TH/MM3 (150-450) (150-450) Mean Platelet Volume 10.1 FL 9.6 FL (7.0-11.0) (7.0-11.0) Neutrophils (%) (Auto) 84.0 % 77.5 % (16.0-70.0) (16.0-70.0) Lymphocytes (%) (Auto) 9.0 % 13.2 % (9.0-44.0) (9.0-44.0) Monocytes (%) (Auto) 6.0 % (0.0-8.0) 7.0 % (0.0-8.0) Eosinophils (%) (Auto) 0.7 % (0.0-4.0) 1.7 % (0.0-4.0) Basophils (%) (Auto) 0.3 % (0.0-2.0) 0.6 % (0.0-2.0) Neutrophils # (Auto) 11.6 TH/MM3 8.3 TH/MM3 (1.8-7.7) (1.8-7.7) Lymphocytes # (Auto) 1.2 TH/MM3 1.4 TH/MM3 (1.0-4.8) (1.0-4.8) Monocytes # (Auto) 0.8 TH/MM3 0.8 TH/MM3 (0-0.9) (0-0.9) Eosinophils # (Auto) 0.1 TH/MM3 0.2 TH/MM3 (0-0.4) (0-0.4) Basophils # (Auto) 0.0 TH/MM3 0.1 TH/MM3 (0-0.2) (0-0.2) CBC Comment AUTO DIFF AUTO DIFF Differential Total Cells 100 100 Counted Neutrophils % (Manual) 89 % (16-70) 88 % (16-70) Lymphocytes % 6 % (9-44) 4 % (9-44) Monocytes % 2 % (0-8) 4 % (0-8) Eosinophils % 1 % (0-4) 1 % (0-4) Neutrophils # (Manual) 12.6 TH/MM3 9.7 TH/MM3 (1.8-7.7) (1.8-7.7) Metamyelocytes 1 % (0-1) Myelocytes 1 % (0-0) 3 % (0-0) Differential Comment FINAL DIFF FINAL DIFF MANUAL MANUAL Platelet Estimate NORMAL NORMAL (NORMAL) (NORMAL) Platelet Morphology Comment NORMAL NORMAL (NORMAL) (NORMAL) Stomatocytes 1+ (NORMAL) Sodium Level 151 MEQ/L 150 MEQ/L (136-145) (136-145) Potassium Level 3.7 MEQ/L 3.4 MEQ/L (3.5-5.1) (3.5-5.1) Chloride Level 118 MEQ/L 117 MEQ/L (98-107) (98-107) Carbon Dioxide Level 25.4 MEQ/L 27.0 MEQ/L (21.0-32.0) (21.0-32.0) Anion Gap 8 MEQ/L (5-15) 6 MEQ/L (5-15) Blood Urea Nitrogen 14 MG/DL (7-18) 12 MG/DL (7-18) Creatinine 0.79 MG/DL 0.62 MG/DL (0.50-1.00) (0.50-1.00) Estimat Glomerular Filtration 70 ML/MIN (>89) 92 ML/MIN (>89) Rate Random Glucose 84 MG/DL 82 MG/DL (74-106) (74-106) Calcium Level 8.2 MG/DL 8.0 MG/DL (8.5-10.1) (8.5-10.1) Magnesium Level 2.9 MG/DL 2.9 MG/DL (1.5-2.5) (1.5-2.5) Basophilic Stippling FAINT (NORMAL) Result Diagram: 05/10/1661905/10/16619 Assessment and Plan Disease Oriented Problem List: (1) Pneumonia Comment: likely aspiration (2) Alzheimer disease Comment: End-stage, with multiple infections, aspiration, nonambulatory, nearly nonverbal (3) BipolarII (4) UTI (urinary tract infection) (5) Hypernatremia Symptom Scale: Pertinent Non-Medical Issues Psychosocial: Long-term skilled nursing resident Spiritual: Legal: The patient lacks capacity for decision-making and will not regain that capacity. Her son has been functioning as of care proxy decision-maker. Ethical issues impacting care: None. . Important Contacts Son: Luis Fernando Corona [phone] or CELL phone: [phone] . Prognosis 85 with dementia, aspiration pneumonia, multiple hospitalization, and she is clearly end-stage. Would be appropriate for hospice should goals of care be on comfort measures only. . Code Status: No Code Plan == DO NOT RESUSCITATE == DECISION-MAKING: The patient lacks capacity to make medical decisions, and will not regain that capacity; son Luis Fernando has been functioning as proxy decision- maker.. == GOALS:: The patient's son has been difficult to reach at times. He has confirmed DNR status previously. 05/08/16 we discussed hospice options, as it appears she is definitely on a downward trajectory and would be hospice eligible at this time. The son will be meeting with hospice today. Patient is being discharged back to the skilled nursing. == SYMPTOMS: The agitation seems to have subsided == Palliative Care will continue to follow the patient during this hospitalization. .. Attestation To help prompt me to consider important information that might be impacting today's encounter and assessment, information from prior notes written by myself or my colleagues may have been "brought forward" into today's note. My signature on this note, however, is an attestation that I personally performed the exam, history, and/or decision-making noted today, and, unless otherwise indicated, the interactions with patient, family, and staff as well as the review of records all occurred today. I also attest that the listed assessment and stated plan reflect my best clinical judgment today based on the combination of historical information, prior notes, and today's exam/ interactions. When time spent is documented, it refers only to time spent today by the signer, or if indicated, combined time spent today by collaborating physician/nurse practitioner. Helen Esposito MD May 11, 2016 10:54
[2016-05-11 12:00] VITALS: BP 140/72; PULSE 82; RESP 20; TEMP 97.3; O2SAT 97
--- NOTE | 2016-05-11 12:08 | HHI.PR ---
Subjective Remarks Follow-up DVT of bilateral lower extremity. Patient refused Eliquis instead received Lovenox. Today she has been more compliant taking her medications and eating more. Discussed with RN. Anticoagulation also discussed with son yesterday who agrees. Discussed with case management Objective Vitals Vital Signs Date Time Temp Pulse Resp B/P Pulse Ox O2 Delivery O2 Flow Rate FiO2 05/11/16 08:00 97.5 70 16 121/63 96 05/11/16 00:00 96.2 98 19 107/73 95 05/10/16 20:00 96.2 78 18 123/97 97 05/10/16 16:00 95.9 75 16 108/64 97 I/O 05/10/16 05/10/16 05/10/16 05/11/16 05/11/16 05/11/16 07:00 15:00 23:00 07:00 15:00 23:00 Intake Total 144 ml 0 ml 480 ml 200 ml Output Total 200 ml 400 ml 250 ml Balance -200 ml 144 ml -400 ml 230 ml 200 ml Intake Oral 0 ml 0 ml 480 ml 200 ml IV Total 144 ml Output Urine Total 200 ml 400 ml 250 ml # Bowel Movements 0 0 Result Diagram: 05/10/16 0620 05/10/16 0620 Objective Remarks GENERAL: This is frail eldely pt , in nad skin : multiple wound on LEs CARDIOVASCULAR: Regular rate and rhythm without murmurs, gallops, or rubs. RESPIRATORY: Clear to auscultation. Breath sounds equal bilaterally. No wheezes , rales, or rhonchi. GASTROINTESTINAL: Abdomen soft, non-tender, nondistended. Normal active bowel sounds MUSCULOSKELETAL: Extremities without clubbing, cyanosis but with bilateral lower extremity edema. RUE swollen from IVF which is improving NEURO: Awake and talking but confused. Does not want to be bothered. Moves all ext Procedures None A/P Problem List: (1) Dehydration ICD Code: E86.0 Status: Acute (2) Acute renal failure ICD Code: N17.9 Status: Acute (3) Hypernatremia ICD Code: E87.0 Status: Acute (4) Alzheimer disease ICD Code: G30.9 Status: Acute Assessment and Plan Failure to thrive/ hypernatremia The pt presents with a sodium level of 183. mostly poor oral intake , poor access to water . She has progressive dementia and has been hospitalized frequently over the past two years. There is concern for aspiration. - D5W correction should not exceed 8-10 mmol/24 h and follow BMP. Her sodium is stable today. - PT/OT/ST. - Palliative care consulted. Son does not know what to do, does not want PEG and hospice. Discussion with palliative care physician, son wants to continue working with her "to get her eating better and get her stronger," but he agrees that if he does not see a turnaround within the next couple weeks he will add hospice services to her care at the nursing facility. - case management consult. Aspiration pneumonia with sepsis (elevated heart rate, respiratory rate and white count) CXR with infiltrate in right upper lung. The pt has progressive dementia. -Pured diet, aspiration precautions - blood culture x 2 negative to date. - sputum culture and gram stain ordered. - Ct Augmentin till May 13 - Stable leukocytosis UTI The pt has a history of UTIs. UA is indicative of infection. Culture growing Morganella -Ct Augmentin discontinue Rocephin Hypothermia secondary to hypothyroidism and/or possible sepsis -Improved follow-up blood culture NGTD -Warming blanket Acute renal failure on chronic kidney disease stage II Prerenal s/t decreased PO intake. Dietitian consulted. Ensure. Son undecided on TF - IVFs. - follow BMP and avoid nephrotoxic agents. - Improving Hypokalemia. Replace. Monitor BMP Hypotension S/t dehydration. - hold antihypertensive including Lasix. - IVFs. Sacral decubitus. Wound care. Keep Frederick catheter placed 04/30/16 Hypothyroidism. Increase Synthroid to a total of 188 g daily recheck TSH in 6 weeks Bilateral lower extremity DVT. Continue Lovenox and switch to novel agent if compliant Discharge Planning Stable for discharge Problem Qualifiers (1) Acute renal failure: Qualified Code: N17.9 - Acute renal failure, unspecified acute renal failure type Obinna Buenrostro MD May 11, 2016 12:08
[2016-05-11] MEDS ORDERED: ENOX80P SQ (12:32)
[2016-05-11] MEDS ORDERED: LACT10SO PO (12:32)
[2016-05-18] MEDS ORDERED: APIXABAN 5 MG TABLET PO SCH (09:00)
== END 2016-05-11 14:25 | DRG 871 ==
LOC: NEDAMB 20:57 → NEDA 23:44 → NEDH 05-01 03:44 → HOCA 05-01 12:46
PROVIDERS: ADMIT Internal Medicine; ATTEND Internal Medicine
DX: A41.9 Sepsis, unspecified organism (principal); J69.0 Pneumonitis due to inhalation of food and vomit; G93.40 Encephalopathy, unspecified; N17.9 Acute kidney failure, unspecified; E87.0 Hyperosmolality and hypernatremia; L89.159 Pressure ulcer of sacral region, unspecified stage; N39.0 Urinary tract infection, site not specified; I82.403 Acute embolism and thrombosis of unspecified deep veins of lower extremity, bilateral; I95.9 Hypotension, unspecified; R62.7 Adult failure to thrive; G30.9 Alzheimer's disease, unspecified; L89.629 Pressure ulcer of left heel, unspecified stage; L89.619 Pressure ulcer of right heel, unspecified stage; E86.0 Dehydration; N18.2 Chronic kidney disease, stage 2 (mild); I12.9 Hypertensive chronic kidney disease with stage 1 through stage 4 chronic kidney disease, or unspecified chronic kidney disease; E03.9 Hypothyroidism, unspecified; I25.10 Atherosclerotic heart disease of native coronary artery without angina pectoris; K21.9 Gastro-esophageal reflux disease without esophagitis; E87.6 Hypokalemia; R68.0 Hypothermia, not associated with low environmental temperature; F02.80 Dementia in other diseases classified elsewhere, unspecified severity, without behavioral disturbance, psychotic disturbance, mood disturbance, and anxiety; F31.9 Bipolar disorder, unspecified; Z66 Do not resuscitate; Z78.1 Physical restraint status; Z86.73 Personal history of transient ischemic attack (TIA), and cerebral infarction without residual deficits; Z87.440 Personal history of urinary (tract) infections; Z88.2 Allergy status to sulfonamides; Z88.6 Allergy status to analgesic agent; Z96.652 Presence of left artificial knee joint
CPT/HCPCS: 51702; 71010; 76937; 80048; 81001; 82550; 83605; 83735; 84443; 85007; 85025; 85027; 87040; 87077; 87086; 87186; 93005; 93970; 96365; G8987-GO; G8988-GO; G8989-GO; J0696; J1644; J1650; J2060; J3480; J7070

== ENCOUNTER 2016-09-04 11:29 | Observation (INO) | payer MEDICARE, OTHER ==
[~2016-09-04] VITALS: Ht 167.6 cm; Wt 54.5 kg
[~2016-09-04 11:29] MED LIST changes: -ACET325T11 PO; +ALBU0.63 NEB; -AMLO10 PO; +AMLO5TAB2 PO; +AMOX875T2 PO; -CALTCHW4 PO; +CLOP75TA PO; +COLA100C3 PO; +DAKI0.12 TOPICAL; -DEPA250T2 PO; -DIFFCHW PO; +DIVA250T PO; +ENOX80P SQ; -FERR50TA PO; +FURO1TAB62 PO; -FURO20 PO; +LACT10SO PO; +LEVA500T PO; +LEVO.1 PO; -LEVO175T2 PO; +LORA-392 PO; +MEGE40SU PO; -METO25 PO; +METO25TA3 PO; +MULT-135 PO; -NYST100010 SS; -OXYB5TAB PO; -PLAV75TA PO; -POTA-243 PO; +POTA10CA PO; +PRAV10TA PO; -PRAV20TA PO; +REME15TA PO; +SENN1TAB PO; +SYNT88TA PO; -TAB-TAB PO; +TRAZ50TA12 PO; -TRAZ50TA4 PO; +ZINC220T PO; -ZYPR5TAB11 PO; +[UNRECOGNIZED DRUG - CODE] CHEW
--- NOTE | 2016-09-04 11:57 | PD ---
HPI Chief Complaint: Possible rectal bleeding Time Seen by Provider: 11:39 Travel History International Travel<30 days: No Contact w/Intl Traveler<30days: No History of Present Illness HPI 85yo F with PMH of dementia, anemia, CKD, HTN was sent here from [facility] because they found blood in her diaper. Pt has a decubitus ulcer and blood could have been from there too. Pt has dementia and not answering my questions. Moving extremities but not screaming when we are not doing an exam. No signs of trauma. No fever or other complaints. PFSH Past Medical History Arthritis: Yes Asthma: No Autoimmune Disease: No Blood Disorders: No Anxiety: Yes Depression: No Heart Rhythm Problems: No Cancer: No Cardiovascular Problems: Yes High Cholesterol: Yes Chemotherapy: No Chest Pain: Yes Congestive Heart Failure: No COPD: No Cerebrovascular Accident: Yes Diabetes: No Diminished Hearing: Yes (L EAR MOAPA) Endocrine: No Gastrointestinal Disorders: Yes GERD: Yes Glaucoma: No Genitourinary: Yes (OVERACTIVE BLADDER) Headaches: No Hepatitis: No Hiatal Hernia: Yes (STRETCHED ESOPHAGUS HIATAL HERNIA) Hypertension: Yes Kidney Stones: No Musculoskeletal: Yes Neurologic: Yes Psychiatric: Yes Reproductive: No Respiratory: No Immunizations Current: No Myocardial Infarction: No Radiation Therapy: No Renal Failure: No Seizures: No Sickle Cell Disease: No Sleep Apnea: No Thyroid Disease: No Ulcer: No PNEUMOCCOCAL Vaccine (Year): 3 Menopausal: Yes Past Surgical History Abdominal Surgery: Yes (HERNIA REPAIR) AICD: No Appendectomy: Yes Body Medical Devices: WALKER Cardiac Surgery: No Cholecystectomy: Yes Endocrine Surgery: Yes (THYROID (1952)) Eye Surgery: Yes (CATARACTS) Gynecologic Surgery: Yes (HYSTERECTOMY) Hysterectomy: Yes Pacemaker: No Thoracic Surgery: No Other Surgery: Yes (PARTIAL THROIDISM) Social History Alcohol Use: Yes (OCCAS) Tobacco Use: No Substance Use: No (DENIED) Allergies-Medications (Allergen,Severity, Reaction): Coded Allergies: Celecoxib (Verified Allergy, Unknown, 09/04/16) Haloperidol (Verified Allergy, Unknown, 09/04/16) Risperidone (Verified Allergy, Unknown, 09/04/16) Sulfa (Verified Allergy, Unknown, 09/04/16) Aspirin (Verified Adverse Reaction, Intermediate, NOSE BLEEDS, 09/04/16) Thorazine (Verified Adverse Reaction, Intermediate, CRAMPS, 09/04/16) Reported Meds & Prescriptions Reported Meds & Active Scripts Active Lactulose Liq (Lactulose) 10 Gm/15 Ml Soln 30 Ml PO BID Senna Plus 8.6-50 mg (Sennosides-Docusate Sodium) 1 Tab Tab 2 Tab PO BID Synthroid (Levothyroxine Sodium) 88 Mcg Tab 88 Mcg PO DAILY@0600 Synthroid (Levothyroxine Sodium) 100 Mcg Tab 100 Mcg PO DAILY@0600 Reported Ammonium Lactate (Lactic Acid (Ammonium Lactate)) 12% Lotn 1 Applic TOPICAL BID Apply to whole body every day and evening shift Milk of Magnesia Liq (Magnesium Hydroxide) 400 Mg/5 Ml Susp 30 Ml PO HS PRN Enema Disposable (Sodium Phosphates) 1 Karoline Karoline 1 Applic RECTAL DAILY PRN Dulcolax Supp (Bisacodyl) 10 Mg Supp 10 Mg RECTAL DAILY PRN Citroma Liq (Magnesium Citrate) 300 Ml Liq 300 Ml PO IN THE AM PRN Aldactone (Spironolactone) 25 Mg Tab 25 Mg PO DAILY Dextrose 5% (Dextrose) 5 % Inj IV Q8HR IV TO RUN AT 90ML/HR EVERY SHIFT Calcium 600 with Vitamin D (Calcium Carbonate-Cholecalciferol) 600-400 mg-Unit Tab 1 Tab PO DAILY Aspirin Adult Low Strength (Aspirin) 81 Mg Tabdr 81 Mg PO DAILY Metoprolol Tartrate 50 Mg Tab 50 Mg PO BID Ascorbic Acid 500 Mg Tab 500 Mg PO DAILY Multi-Vitamins (Multiple Vitamin) 1 Tab Tab 1 Tab PO DAILY Zinc Sulfate 220 Mg Tab 220 Mg PO DAILY Remeron (Mirtazapine) 15 Mg Tab 15 Mg PO HS Pravastatin 10 Mg Tab 10 Mg PO HS Omeprazole 20 Mg Tab 20 Mg PO DAILY Divalproex DR (Divalproex Sodium) 250 Mg Tabdr 250 Mg PO BID Clopidogrel (Clopidogrel Bisulfate) 75 Mg Tab 75 Mg PO DAILY Albuterol Neb (Albuterol Sulfate) 0.63 Mg/3 Ml Neb 0.63 Mg NEB Q6HR NEB PRN Review of Systems ROS Limitations: Clinical Condition Physical Exam Narrative GENERAL: 85yo F not in distress. SKIN: Focused skin assessment warm/dry. HEAD: Atraumatic. Normocephalic. EYES: Pupils equal and round. No scleral icterus. No injection or drainage. ENT: No nasal bleeding or discharge. Mucous membranes pink and moist. NECK: Trachea midline. No JVD. CARDIOVASCULAR: Regular rate and rhythm. No murmur appreciated. RESPIRATORY: No accessory muscle use. Clear to auscultation. Breath sounds equal bilaterally. GASTROINTESTINAL: Abdomen soft, non-tender, nondistended. MUSCULOSKELETAL: No obvious deformities. No clubbing. No cyanosis. No edema. NEUROLOGICAL: Awake and alert. Baseline dementia. Not following commands. Data Data Last Documented VS Vital Signs Date Time Temp Pulse Resp B/P Pulse Ox O2 Delivery O2 Flow Rate FiO2 09/04/16 12:25 97.0 60 16 143/83 94 Orders Complete Blood Count With Diff (09/04/16 11:52) Basic Metabolic Panel (Bmp) (09/04/16 11:52) Potassium Chlor 20 Meq Premix (Kcl 20 Me (09/04/16 13:45) Urinalysis - C+S If Indicated (09/04/16 13:50) Magnesium Sulfate 1 Gm Premix (Magnesium (09/04/16 14:00) Potassium Chloride Eff (K-Lyte Cl Eff) (09/04/16 14:00) Urine Culture (09/04/16 15:45) Ceftriaxone Inj (Rocephin Inj) (09/04/16 16:30) Vital Signs (Adult) Q4H (09/04/16 16:39) Activity Oob With Assistance (09/04/16 16:39) Pharmacy District Manager / Telemetry .CONTINUOUS (09/04/16 16:39) Sodium Chloride 0.9% Flush (Ns Flush) (09/04/16 16:45) Sodium Chloride 0.9% Flush (Ns Flush) (09/04/16 21:00) Ondansetron Inj (Zofran Inj) (09/04/16 16:45) Basic Metabolic Panel (Bmp) (09/05/16 06:00) Complete Blood Count With Diff (09/05/16 06:00) Scd Bilateral/Knee High WANDA.BID (09/04/16 16:39) Naloxone Inj (Narcan Inj) (09/04/16 16:45) Docusate Sodium-Senna (Peggy-Colace) (09/04/16 21:00) Magnesium Hydroxide Liq (Milk Of Magnesi (09/04/16 16:45) Sennosides (Senokot) (09/04/16 16:45) Bisacodyl Supp (Dulcolax Supp) (09/04/16 16:45) Lactulose Liq (Lactulose Liq) (09/04/16 16:45) Admit Order (Ed Use Only) (09/04/16 16:47) Labs Laboratory Tests Test 09/04/16 09/04/16 12:20 15:45 White Blood Count 13.6 TH/MM3 Red Blood Count 3.70 MIL/MM3 Hemoglobin 10.7 GM/DL Hematocrit 32.5 % Mean Corpuscular Volume 87.8 FL Mean Corpuscular Hemoglobin 29.1 PG Mean Corpuscular Hemoglobin 33.1 % Concent Red Cell Distribution Width 15.2 % Platelet Count 391 TH/MM3 Mean Platelet Volume 7.5 FL Neutrophils (%) (Auto) 64.6 % Lymphocytes (%) (Auto) 15.0 % Monocytes (%) (Auto) 12.9 % Eosinophils (%) (Auto) 6.8 % Basophils (%) (Auto) 0.7 % Neutrophils # (Auto) 8.8 TH/MM3 Lymphocytes # (Auto) 2.0 TH/MM3 Monocytes # (Auto) 1.8 TH/MM3 Eosinophils # (Auto) 0.9 TH/MM3 Basophils # (Auto) 0.1 TH/MM3 CBC Comment DIFF FINAL Differential Comment Sodium Level 142 MEQ/L Potassium Level 2.8 MEQ/L Chloride Level 104 MEQ/L Carbon Dioxide Level 31.9 MEQ/L Anion Gap 6 MEQ/L Blood Urea Nitrogen 5 MG/DL Creatinine 0.45 MG/DL Estimat Glomerular Filtration 133 ML/MIN Rate Random Glucose 75 MG/DL Calcium Level 8.2 MG/DL Urine Color YELLOW Urine Turbidity HAZY Urine pH 6.5 Urine Specific [place] 1.005 Urine Protein NEG mg/dL Urine Glucose (UA) NEG mg/dL Urine Ketones NEG mg/dL Urine Occult Blood NEG Urine Nitrite POS Urine Bilirubin NEG Urine Urobilinogen LESS THAN 2.0 MG/DL Urine Leukocyte Esterase LARGE Urine RBC 4 /hpf Urine WBC 82 /hpf Urine WBC Clumps FEW Urine Squamous Epithelial <1 /hpf Cells Urine Amorphous Sediment RARE Urine Bacteria MANY /hpf Urine Mucus FEW /lpf Microscopic Urinalysis Comment CATH-CULTURE IND MDM Medical Decision Making Medical Screen Exam Complete: Yes Emergency Medical Condition: Yes Differential Diagnosis Dehydration vs. electrolyte abnormality vs. GI bleed vs. bleeding from ulcer Narrative Course 85yo F with dementia at her baseline mental status here for evaluation of lower GI bleed. Hemaprompt negative. Pt appears dry and dehydrated. Labs reviewed, leukocytosis at 13.6. H/H low at 10.7/32.5 but at baseline. Hypokalemic at 2.8 , ordered 20mEq KCl IV and also PO but pt is not able to take the PO. Pt also empirically treated with magnesium 1gm IV. UA showed positive nitrite. Large leukocyte. Pt likely has chronic UTI but with elevated WBC, will treat with ceftriaxone 1gm IV. Pt has a PICC line in left arm and was told that she gets hydration since she has not really been eating. Informed by nurse that it is not really drawing back blood. Discussed with hospitalist Dr. Bach and accepted to his service. Diagnosis Primary Impression: UTI (urinary tract infection) Qualified Code: N39.0 - Urinary tract infection without hematuria, site unspecified Additional Impression: Hypokalemia Admitting Information Admitting Physician Requests: Aranza Mcqueen DO September 04, 2016 11:57
[2016-09-04] MEDS ORDERED: MULTTAB4 PO (12:16)
[2016-09-04 12:25] VITALS: BP 143/83; PULSE 60; RESP 16; TEMP 97; O2SAT 94
[2016-09-04 12:51] LABS: AUTOMATED NEUTROPHIL # 8.8 TH/MM3 (1.8-7.7); BASOPHIL # 0.1 TH/MM3 (0-0.2); BASOPHIL % 0.7 % (0.0-2.0); EOSINOPHIL # 0.9 TH/MM3 (0-0.4); EOSINOPHIL % 6.8 % (0.0-4.0); HEMATOCRIT 32.5 % (35.0-46.0); HEMO FLAGS DIFF FINAL; MEAN CELL VOLUME 87.8 FL (80.0-100.0); MEAN CORPUSCULAR HEMOGLOBIN 29.1 PG (27.0-34.0); MEAN CORPUSCULAR HGB CONC 33.1 % (32.0-36.0); MONO % 12.9 % (0.0-8.0); NEUT % 64.6 % (16.0-70.0); PLATELET COUNT 391 TH/MM3 (150-450); RED CELL DISTRIBUTION WIDTH 15.2 % (11.6-17.2); WHITE BLOOD COUNT 13.6 TH/MM3 (4.0-11.0)
[2016-09-04 13:34] LABS: BICARBONATE 31.9 MEQ/L (21.0-32.0)
[2016-09-04 13:39] LABS: POTASSIUM 2.8 MEQ/L (3.5-5.1)
[2016-09-04] MEDS ORDERED: POTASSIUM CHLOR 20 MEQ PREMIX 100 ML IV ONE (13:45)
[2016-09-04] MEDS ORDERED: POTASSIUM CHLORIDE 25 MEQ EFFERVESCENT TAB PO ONE (14:00)
[2016-09-04] MEDS ORDERED: MAGNESIUM SULFATE 1 GM PREMIX 100 ML IV ONE (14:00)
[2016-09-04] MEDS ORDERED: [UNRECOGNIZED DRUG - CODE] IV (15:00)
[2016-09-04] MEDS ORDERED: ASCO500T PO (15:00)
[2016-09-04] MEDS ORDERED: ASPI1TAB91 PO (15:00)
[2016-09-04] MEDS ORDERED: SPIR25 PO (15:00)
[2016-09-04] MEDS ORDERED: CALC1TAB87 PO (15:00)
[2016-09-04] MEDS ORDERED: DOCU100C PO (15:00)
[2016-09-04] MEDS ORDERED: METO50TA PO (15:00)
[2016-09-04] MEDS ORDERED: AMMO12LO TOPICAL (15:06)
[2016-09-04] MEDS ORDERED: ENEMENE5 RECTAL (15:06)
[2016-09-04] MEDS ORDERED: MILKSUS PO (15:06)
[2016-09-04] MEDS ORDERED: CITRSOL4 PO (15:06)
[2016-09-04] MEDS ORDERED: DULC10SU3 RECTAL (15:06)
[2016-09-04 16:15] LABS: BACTERIA, URINE MANY /hpf; BLOOD, URINE NEG (NEG); GLUCOSE,URINE NEG (NEG); KETONE, URINE NEG (NEG); MUCUS URINE FEW /lpf (OCC); PH, URINE 6.5 (5.0-8.5); SQUAMOUS EPITHELIAL CELL URINE <1 /hpf (0-5); URINE COLOR YELLOW (YELLW/STRAW)
[2016-09-04 16:17] LABS: COMMENT (UR) CATH-CULTURE IND; CULTURE IF INDICATED CATH CULTURE IND; NITRITE,URINE POS (NEG)
[2016-09-04] MEDS ORDERED: cefTRIAXone INJ 1,000 MG in SODIUM CHLORIDE 0.9% INJ 100 ML IV ONE (16:30)
[2016-09-04] MEDS ORDERED: LACTULOSE SYRUP 20 GM/30 ML CUP PO PRN (16:45)
[2016-09-04] MEDS ORDERED: BISACODYL 10 MG SUPP RECTAL PRN ×2 (16:45→17:45)
[2016-09-04] MEDS ORDERED: ONDANSETRON HCL 4 MG/2 ML VIAL IVP PRN (16:45)
[2016-09-04] MEDS ORDERED: NALOXONE HCL 0.4 MG/ML AMP IV PRN (16:45)
[2016-09-04] MEDS ORDERED: SENNOSIDES 8.6 MG TAB PO PRN (16:45)
[2016-09-04] MEDS ORDERED: MAGNESIUM HYDROXIDE SUSP 30 ML CUP PO PRN ×2 (16:45→17:45)
[2016-09-04] MEDS ORDERED: SODIUM CHLORIDE 0.9% FLUSH 10 ML FLUSH IV FLUSH PRN (16:45)
[2016-09-04 17:04] VITALS: BP 133/67; PULSE 78; RESP 16; O2SAT 96
--- NOTE | 2016-09-04 17:41 | HHI.HP ---
HPI Service [facility] Primary Care Physician Unknown Admission Diagnosis Hypokalemia, UTI Diagnoses: Travel History International Travel<30 Days: No Contact w/Intl Traveler <30 Da: No Traveled to Known Affected Are: No History of Present Illness Mrs. Corona is an 85-year-old female. 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 She is not verbal and has no ability to ambulate. Recurrent medical problems include recurrent hypernatremia and recurrent urinary tract infections. She was sent here today from her [facility] facility secondary to blood in her diaper. She has a chronic stage IV decubitus ulcer and this may be the source of blood as rectal testing in the ER showed no blood. Lately she has been more confused and eating poorly per her son. The etiology of this might be related to a urinary tract infection discovered in her emergency room. She also was found to be hypokalemic. She is not exhibiting any signs of discomfort. She does have tenderness at the site of the decubitus ulcer. History is obtained from the son as the patient cannot provide any history. No other complaints at this time. Review of Systems ROS Limitations: Unresponsive, Poor Historian Past Family Social History Past Medical History Coronary artery disease Hypertension excellent CVA Gastroesophageal reflux disease Worley's esophagitis Esophageal strictures Dementia Bipolar disorder Hypothyroidism Past Surgical History History of esophageal dilation Total left knee arthroplasty Thyroidectomy Appendectomy Cholecystectomy Hysterectomy Nabeel fundoplication Reported Medications Reported Meds & Active Scripts Active Lactulose Liq (Lactulose) 10 Gm/15 Ml Soln 30 Ml PO BID Senna Plus 8.6-50 mg (Sennosides-Docusate Sodium) 1 Tab Tab 2 Tab PO BID Synthroid (Levothyroxine Sodium) 88 Mcg Tab 88 Mcg PO DAILY@0600 Synthroid (Levothyroxine Sodium) 100 Mcg Tab 100 Mcg PO DAILY@0600 Reported Ammonium Lactate (Lactic Acid (Ammonium Lactate)) 12% Lotn 1 Applic TOPICAL BID Apply to whole body every day and evening shift Milk of Magnesia Liq (Magnesium Hydroxide) 400 Mg/5 Ml Susp 30 Ml PO HS PRN Enema Disposable (Sodium Phosphates) 1 Karoline Karoline 1 Applic RECTAL DAILY PRN Dulcolax Supp (Bisacodyl) 10 Mg Supp 10 Mg RECTAL DAILY PRN Citroma Liq (Magnesium Citrate) 300 Ml Liq 300 Ml PO IN THE AM PRN Aldactone (Spironolactone) 25 Mg Tab 25 Mg PO DAILY Dextrose 5% (Dextrose) 5 % Inj IV Q8HR IV TO RUN AT 90ML/HR EVERY SHIFT Calcium 600 with Vitamin D (Calcium Carbonate-Cholecalciferol) 600-400 mg-Unit Tab 1 Tab PO DAILY Aspirin Adult Low Strength (Aspirin) 81 Mg Tabdr 81 Mg PO DAILY Metoprolol Tartrate 50 Mg Tab 50 Mg PO BID Ascorbic Acid 500 Mg Tab 500 Mg PO DAILY Multi-Vitamins (Multiple Vitamin) 1 Tab Tab 1 Tab PO DAILY Zinc Sulfate 220 Mg Tab 220 Mg PO DAILY Remeron (Mirtazapine) 15 Mg Tab 15 Mg PO HS Pravastatin 10 Mg Tab 10 Mg PO HS Omeprazole 20 Mg Tab 20 Mg PO DAILY Divalproex DR (Divalproex Sodium) 250 Mg Tabdr 250 Mg PO BID Clopidogrel (Clopidogrel Bisulfate) 75 Mg Tab 75 Mg PO DAILY Albuterol Neb (Albuterol Sulfate) 0.63 Mg/3 Ml Neb 0.63 Mg NEB Q6HR NEB PRN Allergies: Coded Allergies: Celecoxib (Verified Allergy, Unknown, 09/04/16) Haloperidol (Verified Allergy, Unknown, 09/04/16) Risperidone (Verified Allergy, Unknown, 09/04/16) Sulfa (Verified Allergy, Unknown, 09/04/16) Aspirin (Verified Adverse Reaction, Intermediate, NOSE BLEEDS, 09/04/16) Thorazine (Verified Adverse Reaction, Intermediate, CRAMPS, 09/04/16) Family History Myocardial infarction, CVA, and COPD in patient's mother and other family members Social History No history of alcohol abuse. No known history of tobacco abuse. No drug abuse. Physical Exam Vital Signs Vital Signs Date Time Temp Pulse Resp B/P Pulse Ox O2 Delivery O2 Flow Rate FiO2 09/04/16 17:04 78 16 133/67 96 Nasal Cannula 2 09/04/16 12:25 97.0 60 16 143/83 94 Physical Exam GENERAL: NAD, A&Ox0 SKIN: Warm and dry. Age for decubitus ulcer at sacrum. Tissues are healthy and viable without erythema or signs of infection. HEAD: Normocephalic. EYES: No scleral icterus. No injection or drainage. NECK: Supple, trachea midline. No JVD or lymphadenopathy. CARDIOVASCULAR: Regular rate and rhythm without murmurs, gallops, or rubs. RESPIRATORY: Breath sounds equal bilaterally. No accessory muscle use. GASTROINTESTINAL: Abdomen soft, non-tender, nondistended. MUSCULOSKELETAL: No cyanosis, or edema. Laboratory Laboratory Tests Test 09/04/16 09/04/16 12:20 15:45 White Blood Count 13.6 Red Blood Count 3.70 Hemoglobin 10.7 Hematocrit 32.5 Mean Corpuscular Volume 87.8 Mean Corpuscular Hemoglobin 29.1 Mean Corpuscular Hemoglobin 33.1 Concent Red Cell Distribution Width 15.2 Platelet Count 391 Mean Platelet Volume 7.5 Neutrophils (%) (Auto) 64.6 Lymphocytes (%) (Auto) 15.0 Monocytes (%) (Auto) 12.9 Eosinophils (%) (Auto) 6.8 Basophils (%) (Auto) 0.7 Neutrophils # (Auto) 8.8 Lymphocytes # (Auto) 2.0 Monocytes # (Auto) 1.8 Eosinophils # (Auto) 0.9 Basophils # (Auto) 0.1 CBC Comment DIFF FINAL Differential Comment Sodium Level 142 Potassium Level 2.8 Chloride Level 104 Carbon Dioxide Level 31.9 Anion Gap 6 Blood Urea Nitrogen 5 Creatinine 0.45 Estimat Glomerular Filtration 133 Rate Random Glucose 75 Calcium Level 8.2 Urine Color YELLOW Urine Turbidity HAZY Urine pH 6.5 Urine Specific Lovell 1.005 Urine Protein NEG Urine Glucose (UA) NEG Urine Ketones NEG Urine Occult Blood NEG Urine Nitrite POS Urine Bilirubin NEG Urine Urobilinogen LESS THAN 2.0 Urine Leukocyte Esterase LARGE Urine RBC 4 Urine WBC 82 Urine WBC Clumps FEW Urine Squamous Epithelial <1 Cells Urine Amorphous Sediment RARE Urine Bacteria MANY Urine Mucus FEW Microscopic Urinalysis Comment CATH-CULTURE IND Date/Time Procedure Status Source Growth 09/04/16 15:45 Urine Culture Received Urine Catheterized Urine Pending Result Diagram: 09/04/16 1220 09/04/16 1220 Assessment and Plan Problem List: (1) UTI (urinary tract infection) ICD Code: N39.0 Status: Acute (2) Hypokalemia ICD Code: E87.6 Status: Acute (3) Alzheimer disease ICD Code: G30.9 Status: Acute Assessment and Plan Assessment and plan 85-year-old female with end-stage dementia who is bedbound, admitted with urinary tract infection, encephalopathy, and hypokalemia. Hypokalemia IV replacement Follow potassium level Follow on telemetry to stabilize Urinary tract infection Rocephin Follow urine culture Monitor vital signs Change chronic catheter at 2-3 days after treatment started Metabolic encephalopathy This is secondary to disturbances from infection Treat infection as above Monitor Supportive care Hypothyroidism Continue supplement Coronary artery disease Follow clinically Patient on telemetry Hypertension Follow blood pressure Continue home treatments History of CVA Follow clinically Gastroesophageal reflux disease Worley's esophagitis Esophageal strictures No change in baseline treatments Monitor clinically End-stage dementia Supportive care Problem Qualifiers (1) UTI (urinary tract infection): Qualified Code: N39.0 - Urinary tract infection without hematuria, site unspecified Jaswant Bach MD September 04, 2016 5:41 pm
[2016-09-04] MEDS ORDERED: MAGNESIUM CITRATE SOLN 300 ML BTL PO PRN (17:45)
[2016-09-04] MEDS ORDERED: SOD PHOSPHATE/SOD BIPHOSPHATE (ADULT) ENEMA 133ML RECTAL PRN (17:45)
[2016-09-04] MEDS ORDERED: RESP: ALBUTEROL 0.63 MG/3 ML NEB (PRN) NEB (17:45)
[2016-09-04] MEDS: LACTOBACILLUS ACIDOPHILUS TAB PO SCH (18:00)
--- NOTE | 2016-09-04 19:50 | HHI.PR ---
Addendum to Inpatient Note Addendum Reason: Additional Documentation Additional Information i was called by pt's ER nurse that pt's son is at bedside and reported pt is not eating or drinking well for a while - likely due to advanced dementia/ poor oral intake and was not able to take meds by mouth. They have been considering feeding tube as outpatient most recently. She therefore did not get any kcl po orders today received 20meq kcl iv today repeat lab in in about 10min from now thus held all po meds for now replace kcl 40meq iv one dose now d5 1/2 ns at 84cc/hr swallow eval with speech therapist based on above finding, to please consider feeding tube if pt and family desire Lilian Daly MD September 04, 2016 19:50
[2016-09-04] MEDS: DEXT 5%-NACL 0.45% 1000 ML INJ 1,000 ML IV SCH (21:00)
[2016-09-04] MEDS ORDERED: DOCUSATE SODIUM 50 MG/SENNA 8.6 MG TAB PO SCH (21:00)
[2016-09-04] MEDS ORDERED: PRAVASTATIN SOD 10 MG TAB PO SCH (21:00)
[2016-09-04] MEDS ORDERED: MIRTAZAPINE 15 MG TAB PO SCH (21:00)
[2016-09-04] MEDS ORDERED: LACTULOSE SYRUP 20 GM/30 ML CUP PO SCH (21:00)
[2016-09-04] MEDS: METOPROLOL TARTRATE 50 MG TAB PO SCH (21:00)
[2016-09-04] MEDS: DIVALPROEX SODIUM DELAYED RELEASE 250 MG TAB PO SCH (21:00)
[2016-09-04] MEDS: DOCUSATE SODIUM 50 MG/SENNA 8.6 MG TAB PO SCH (21:00)
[2016-09-04] MEDS: POTASSIUM CHLOR 20 MEQ PREMIX 100 ML IV SCH ×2 (23:30→23:45)
[2016-09-04] MEDS: LACTIC ACID (AMMONIUM LACTATE) 12% LOTION 225 GM BTL TOPICAL SCH (23:46)
[2016-09-04] MEDS: SODIUM CHLORIDE 0.9% FLUSH 10 ML FLUSH IV FLUSH SCH (23:47)
[2016-09-05] MEDS ORDERED: LEVOTHYROXINE SODIUM 100 MCG TAB PO SCH (06:00)
[2016-09-05] MEDS ORDERED: LEVOTHYROXINE SODIUM 88 MCG TAB PO SCH (06:00)
[2016-09-05 07:48] VITALS: O2SAT 98
[2016-09-05 08:02] LABS: BICARBONATE 31.1 MEQ/L (21.0-32.0)
[2016-09-05 08:05] LABS: POTASSIUM 4.2 MEQ/L (3.5-5.1)
[2016-09-05 08:07] VITALS: PULSE 66
[2016-09-05] MEDS: DEXT 5%-NACL 0.45% 1000 ML INJ 1,000 ML IV SCH ×2 (08:55→20:11)
[2016-09-05] MEDS ORDERED: CLOPIDOGREL 75 MG TAB PO SCH (09:00)
[2016-09-05] MEDS: DIVALPROEX SODIUM DELAYED RELEASE 250 MG TAB PO SCH (09:00)
[2016-09-05] MEDS ORDERED: MULTIPLE VITAMIN PO SCH (09:00)
[2016-09-05] MEDS ORDERED: MULTIVITAMIN TAB PO SCH (09:00)
[2016-09-05] MEDS: SODIUM CHLORIDE 0.9% FLUSH 10 ML FLUSH IV FLUSH SCH ×2 (09:00→20:11)
[2016-09-05] MEDS ORDERED: NON-FORMULARY DRUG (Omeprazole 20 MG) PO SCH (09:00)
[2016-09-05] MEDS: LACTOBACILLUS ACIDOPHILUS TAB PO SCH ×3 (09:00→16:30)
[2016-09-05] MEDS ORDERED: PANTOPRAZOLE SOD 20 MG DELAYED RELEASE TAB PO SCH (09:00)
[2016-09-05] MEDS ORDERED: ASCORBIC ACID 500 MG TAB PO SCH (09:00)
[2016-09-05] MEDS: DOCUSATE SODIUM 50 MG/SENNA 8.6 MG TAB PO SCH (09:00)
[2016-09-05] MEDS ORDERED: SPIRONOLACTONE 25 MG TAB PO SCH (09:00)
[2016-09-05] MEDS: METOPROLOL TARTRATE 50 MG TAB PO SCH (09:00)
[2016-09-05] MEDS ORDERED: ASPIRIN EC 81 MG TABEC PO SCH (09:00)
[2016-09-05] MEDS ORDERED: ZINC SULFATE 220 MG CAP PO SCH (09:00)
[2016-09-05] MEDS ORDERED: CALCIUM/VITAMIN D 250 MG/125 U TAB PO SCH (09:00)
--- NOTE | 2016-09-05 09:47 | HHI.PR ---
Subjective Remarks Follow up UTI, dementia. Patient has severe dementia and only yells to stay away from her. She does not answer any questions. Unable to ambulate. No family at bedside. 1530: Discussed with son at bedside. He states he has been talking to FACUNDO Crowe in regards to a peg tube placement. He would like to precede with this. Son states patient has not been eating well lately and has been loosing weight and non ambulatory since March 2016. Patient lives [facility] and is unsure how much of her medications she was actually getting. He did state she was getting heparin sq for treatment of her old bilateral LE DVTs. Objective Vitals Vital Signs Date Time Temp Pulse Resp B/P Pulse Ox O2 Delivery O2 Flow Rate FiO2 09/05/16 08:07 66 09/04/16 17:04 78 16 133/67 96 Nasal Cannula 2 09/04/16 12:25 97.0 60 16 143/83 94 I/O 09/04/16 09/04/16 09/04/16 09/05/16 09/05/16 09/05/16 07:00 15:00 23:00 07:00 15:00 23:00 Intake Total 200 ml 200 ml Output Total 800 ml Balance -600 ml 200 ml Intake Oral 200 ml 200 ml Output Urine Total 800 ml # Voids 0 Result Diagram: 09/04/16 1220 09/05/16 0653 Objective Remarks GENERAL: NAD, A&Ox0, dementia SKIN: Warm and dry. Stage IV Decubitus ulcer at sacrum. Tissues are healthy and viable without erythema or signs of infection. LUE with swelling >RT HEAD: Normocephalic. EYES: No scleral icterus. No injection or drainage. NECK: Supple, trachea midline. No JVD or lymphadenopathy. CARDIOVASCULAR: Regular rate and rhythm without murmurs, gallops, or rubs. +1 pedal edema RESPIRATORY: Breath sounds equal bilaterally. No accessory muscle use. GASTROINTESTINAL: Abdomen soft, non-tender, nondistended. MUSCULOSKELETAL: No cyanosis, or edema. Medications and IVs Current Medications Medications (Trade) Dose Ordered Sig/Db Route Start Time Stop Time Status Last Admin (NS Flush) 2 ml UNSCH PRN IV FLUSH 09/04/16 16:45 (NS Flush) 2 ml BID IV FLUSH 09/04/16 21:00 09/04/16 23:47 (Zofran Inj) 4 mg Q6H PRN IVP 09/04/16 16:45 (Narcan Inj) 0.4 mg UNSCH PRN IV 09/04/16 16:45 (Peggy-Colace) 1 tab BID PO 09/04/16 21:00 Future Hold (Milk Of Magnesia Liq) 30 ml Q12H PRN PO 09/04/16 16:45 Future Hold (Senokot) 17.2 mg Q12H PRN PO 09/04/16 16:45 (Dulcolax Supp) 10 mg DAILY PRN RECTAL 09/04/16 16:45 Future Hold Lactulose 30 ml 30 ml DAILY PRN PO 09/04/16 16:45 Future Hold (Rocephin Inj/NS Inj) 100 ml @ 200 mls/hr Q24H IV 09/05/16 16:00 (Lactinex) 1 tab TID PO 09/04/16 18:00 Future Hold (Vitamin C) 500 mg DAILY PO 09/05/16 09:00 Future Hold (Ecotrin Ec) 81 mg DAILY PO 09/05/16 09:00 Future Hold (Oscal-D 250-125) 250 mg DAILY PO 09/05/16 09:00 Future Hold (Plavix) 75 mg DAILY PO 09/05/16 09:00 Future Hold (Depakote Dr) 250 mg BID PO 09/04/16 21:00 Future Hold (Lac-Hydrin 12% Lotion) 1 applic BID TOPICAL 09/04/16 21:00 09/04/16 23:46 (Synthroid) 88 mcg DAILY@0600 PO 09/05/16 06:00 Future Hold (Synthroid) 100 mcg DAILY@0600 PO 09/05/16 06:00 Future Hold (Citroma Liq) 300 ml DAILY PRN PO 09/04/16 17:45 Future Hold (Lopressor) 50 mg BID PO 09/04/16 21:00 Future Hold (Remeron) 15 mg HS PO 09/04/16 21:00 Future Hold (Pravachol) 10 mg HS PO 09/04/16 21:00 Future Hold (Fleets Enema (Adult)) 50 ml DAILY PRN RECTAL 09/04/16 17:45 (Aldactone) 25 mg DAILY PO 09/05/16 09:00 Future Hold (Zinc Sulfate) 220 mg DAILY PO 09/05/16 09:00 Future Hold (Theragran) 1 tab DAILY PO 09/05/16 09:00 Future Hold Pantoprazole Sodium 20 mg 20 mg DAILY PO 09/05/16 09:00 Future Hold (D5W-1/2 NS 1000 ml Inj) 1,000 ml @ 84 mls/hr [id number] IV 09/04/16 21:00 09/04/16 21:00 Urinary Catheter: Yes Assessment to: Continue Frederick insert reason: Stage III/IV Press Ulcer Vascular Central Line Catheter: No A/P Problem List: (1) UTI (urinary tract infection) ICD Code: N39.0 Status: Acute (2) Hypokalemia ICD Code: E87.6 Status: Acute (3) Alzheimer disease ICD Code: G30.9 Status: Acute Assessment and Plan 85-year-old female with end-stage dementia who is bedbound, admitted with urinary tract infection, encephalopathy, and hypokalemia. Hypokalemia, k 2.8--4.2 -IV replacement -Follow potassium level Urinary tract infection -Cont Rocephin -Follow urine culture -Replace Frederick, reculture after replacement Leukocytosis, suspected related to UTI or bacteremia, pt with a left picc line that is not functioning -Remove picc line, picc malfunction, culture tip -Blood cultures ordered Failure to thrive, suspected related to uti and dementia -Swallow eval per speech therapy -Family may want to evaluate for peg placement Metabolic encephalopathy This is secondary to disturbances from infection -Antibiotics as above -Monitor -Supportive care LUE swelling, r/o DVT, history of bilateral LE DVT in 05/2016, not treated out patient -Doppler US LUE and BLE Hypothyroidism, chronic -Continue supplement Coronary artery disease, chronic -Follow clinically -Cont home medications plavix and asa Hypertension, chronic -Follow blood pressure -Continue home treatments End-stage dementia -Supportive care -Possible consult to palliative care if needed, last admission family declined hospice DVT prophylaxis: Lovenox Discharge Planning The exam, history, and the medical decision-making described in the above note were completed with the assistance of the mid-level provider. I reviewed and agree with the findings presented. I attest that I had a [id number] encounter with the patient on the same day, and personally performed and documented my assessment and findings in the medical record.pt seen around 6 pm. resting, wakes for exam . calls me a dog and tells me to get out. she appears comfortable, moving all extremities. cont to treat uti. family to decide on peg tube. appreciate palliative assistance Problem Qualifiers (1) UTI (urinary tract infection): Qualified Code: N39.0 - Urinary tract infection without hematuria, site unspecified Cary Jones September 05, 2016 09:47 Heath Maldonado MD September 05, 2016 21:43
[2016-09-05 11:03] LABS: BASOPHIL # 0.1 TH/MM3 (0-0.2); BASOPHIL % 1.1 % (0.0-2.0); EOSINOPHIL # 0.9 TH/MM3 (0-0.4); EOSINOPHIL % 7.7 % (0.0-4.0); HEMATOCRIT 30.4 % (35.0-46.0); HEMO FLAGS DIFF FINAL; LYMPH % 18.1 % (9.0-44.0); LYMPHOCYTE # 2.1 TH/MM3 (1.0-4.8); MEAN CELL VOLUME 89.3 FL (80.0-100.0); MEAN CORPUSCULAR HEMOGLOBIN 29.2 PG (27.0-34.0); MEAN CORPUSCULAR HGB CONC 32.7 % (32.0-36.0); NEUT % 61.1 % (16.0-70.0); PLATELET COUNT 373 TH/MM3 (150-450); RED CELL DISTRIBUTION WIDTH 15.5 % (11.6-17.2); WHITE BLOOD COUNT 11.4 TH/MM3 (4.0-11.0)
[2016-09-05] MEDS: ENOXAPARIN SODIUM 40 MG/0.4 ML SYRINGE SQ SCH (11:23)
[2016-09-05] MEDS: LACTIC ACID (AMMONIUM LACTATE) 12% LOTION 225 GM BTL TOPICAL SCH ×2 (11:23→20:11)
--- NOTE | 2016-09-05 11:58 | RADRPT ---
EXAM DATE/TIME: 09/05/2016 10:33 [facility] COMPARISON: No previous studies available for comparison. INDICATIONS : Left arm swelling. MEDICAL HISTORY : Gastroesophageal reflux disease. Blind. CVA. Angina. Hypertension. Dyspnea. Hiatal hernia. Arthriti s. Dementia. SURGICAL HISTORY : Appendectomy. Cholecystectomy. Hysterectomy. Bilateral cataracts surgery. EGD. Right shoulder surger y. Left knee surgery. ORIF right femur. Left knee replacement. Thyroid surgery. ENCOUNTER: Initial ACUITY: 1 day PAIN SCORE: Non-responsive LOCATION: Left arm. FINDINGS: There is spontaneous flow documented in the brachial, basilic, cephalic, axillary, and subclavian vei ns. However, there is a filling defect in the proximal brachial vein with the vessel incompletely com pressible characteristic of nonocclusive thrombus. The flow is phasic with respiration. Direction o f flow in the jugular vein is caudal. CONCLUSION: Nonocclusive thrombus in the proximal brachial vein. Deep venous system of the left upper extrem ity is otherwise patent. Russel Santamaria MD on September 05, 2016 at 11:54 Board Certified Radiologist. This report was verified electronically.
[2016-09-05 12:01] VITALS: BP 128/63; PULSE 71; RESP 20; O2SAT 95
[2016-09-05] MEDS ORDERED: ZIPRASIDONE MESYLATE 20 MG VIAL IM PRN (14:45)
[2016-09-05 14:48] LABS: BLOOD GAS CARBOXYHEMOGLOBIN 1.4 % (0-4); BLOOD GAS HCO3 29 mmol/L (22-26); BLOOD GAS METHEMOGLOBIN 0.5 % (0-2); BLOOD GAS O2 HGB SATURATION 95 % (90-100); BLOOD GAS OXYGEN CONTENT 14.3 Vol % (12.0-20.0); BLOOD GAS PCO2 38 mmHg (38-42); BLOOD GAS PO2 78 mmHG (61-120); BLOOD GAS TOTAL HGB 10.7 G/DL (12.0-16.0); CRITICAL VALUE NO; DRAW SITE RT RADIAL; FIO2 21 %; NUMBER OF ARTERIAL PUNCTURES 1; OXYGEN DEVICE ROOM AIR; STAT NO; TEMP CORR TO 98.6
[2016-09-05] MEDS: cefTRIAXone INJ 1,000 MG in SODIUM CHLORIDE 0.9% INJ 100 ML IV SCH (15:43)
[2016-09-05 15:52] VITALS: BP 141/77; PULSE 85; RESP 19; TEMP 98.1; O2SAT 97
--- NOTE | 2016-09-05 18:50 | RADRPT ---
EXAM DATE/TIME: 09/05/2016 10:58 [facility] COMPARISON: US LEG BILATERAL VENOUS DOPPLER, May 10, 2016, 11:41. INDICATIONS : Bilateral leg swelling. MEDICAL HISTORY : Gastroesophageal reflux disease. Blind. CVA. Angina. Hypertension. Dyspnea. Hiatal hernia. Arthriti s. Dementia. SURGICAL HISTORY : Appendectomy.Cholecystectomy. Hysterectomy.Bilateral cataracts surgery. EGD. Right shoulder surgery. Left knee surgery. ORIF right femur. Left knee replacement. Thyroid surgery. ENCOUNTER: Subsequent ACUITY: 1 day PAIN SCORE: Non-responsive LOCATION: Bilateral leg. TECHNIQUE: Venous ultrasound of the left and right leg was performed from the inguinal ligament to the proximal calf. Real-time, color Doppler and spectral tracing, compression and augmentation techniques were us ed. FINDINGS: RIGHT LEG: There is normal compressibility of the deep venous system from the inguinal region to the proximal ca lf. No echogenic clot is seen in the lumen of the common femoral, femoral, popliteal, and posterior tibial veins. There is a normal response of the venous system to proximal and distal augmentation an d respiration. LEFT LEG: There is normal compressibility of the deep venous system from the inguinal region to the proximal ca lf. No echogenic clot is seen in the lumen of the common femoral, femoral, popliteal, and posterior tibial veins. There is a normal response of the venous system to proximal and distal augmentation an d respiration. CONCLUSION: 1. No DVT seen on the current study. 2. Subcutaneous edema involving both lower legs. Ang Lopez Jr., MD on September 05, 2016 at 18:45 Board Certified Radiologist. This report was verified electronically.
[2016-09-05 20:20] VITALS: PULSE 67
[2016-09-05 21:00] VITALS: BP 156/74; PULSE 77; RESP 18; TEMP 98; O2SAT 97
[2016-09-06] VITALS (10 sets, daily range): BP systolic 120–176; BP diastolic 59–105; PULSE 62–88; RESP 16–20; TEMP 97–98.8; O2SAT 80–100
[2016-09-06] MEDS: DEXT 5%-NACL 0.45% 1000 ML INJ 1,000 ML IV SCH ×2 (08:11→19:38)
[2016-09-06] MEDS: SODIUM CHLORIDE 0.9% FLUSH 10 ML FLUSH IV FLUSH SCH ×2 (08:11→19:38)
[2016-09-06] MEDS: LACTIC ACID (AMMONIUM LACTATE) 12% LOTION 225 GM BTL TOPICAL SCH ×2 (08:12→19:38)
[2016-09-06 08:58] LABS: AUTOMATED NEUTROPHIL # 6.5 TH/MM3 (1.8-7.7); BASOPHIL # 0.1 TH/MM3 (0-0.2); BASOPHIL % 1.1 % (0.0-2.0); EOSINOPHIL % 8.3 % (0.0-4.0); HEMATOCRIT 29.1 % (35.0-46.0); HEMO FLAGS DIFF FINAL; LYMPHOCYTE # 2.6 TH/MM3 (1.0-4.8); MEAN CORPUSCULAR HEMOGLOBIN 29.2 PG (27.0-34.0); MEAN CORPUSCULAR HGB CONC 32.4 % (32.0-36.0); MONO % 15.9 % (0.0-8.0); NEUT % 53.7 % (16.0-70.0); PLATELET COUNT 291 TH/MM3 (150-450); RED BLOOD COUNT 3.24 MIL/MM3 (4.00-5.30); RED CELL DISTRIBUTION WIDTH 15.8 % (11.6-17.2); WHITE BLOOD COUNT 12.2 TH/MM3 (4.0-11.0)
[2016-09-06] MEDS ORDERED: ENALAPRILAT 1.25 MG/ML VIAL IV PUSH PRN (09:00)
[2016-09-06 09:24] LABS: BICARBONATE 30.9 MEQ/L (21.0-32.0); POTASSIUM 3.5 MEQ/L (3.5-5.1)
--- NOTE | 2016-09-06 09:55 | HHI.PR ---
Subjective Remarks Follow up uti and dementia. Patient remains a&ox0, just yells to go away. She is not able to answer any questions. No family currently at bedside. Appears comfortable. Objective Vitals Vital Signs Date Time Temp Pulse Resp B/P Pulse Ox O2 Delivery O2 Flow Rate FiO2 09/06/16 07:46 97.0 70 17 176/105 81 09/06/16 04:43 98.0 62 18 120/59 96 09/05/16 21:00 98.0 77 18 156/74 97 09/05/16 20:20 67 09/05/16 15:52 98.1 85 19 141/77 97 09/05/16 12:01 71 20 128/63 95 I/O 09/05/16 09/05/16 09/05/16 09/06/16 09/06/16 09/06/16 06:59 14:59 22:59 06:59 14:59 22:59 Intake Total 200 ml Output Total 250 ml Balance 200 ml -250 ml Intake Oral 200 ml Output Urine Total 250 ml Result Diagram: 09/06/16 0828 09/06/16 0820 Imaging Last Impressions Upper Extremity Ultrasound 09/05/16 0000 Signed Impressions: Service Date/Time: Monday, September 05, 2016 10:33 - CONCLUSION: Nonocclusive thrombus in the proximal brachial vein. Deep venous system of the left upper extremity is otherwise patent. Russel Santamaria MD Lower Extremity Ultrasound 09/05/16 0000 Signed Impressions: Service Date/Time: Monday, September 05, 2016 10:58 - CONCLUSION: 1. No DVT seen on the current study. 2. Subcutaneous edema involving both lower legs. Ang Lopez Jr., MD Objective Remarks GENERAL: NAD, A&Ox0, dementia SKIN: Warm and dry. Stage IV Decubitus ulcer at sacrum. Tissues are healthy and viable without erythema or signs of infection. LUE with swelling >RT HEAD: Normocephalic. EYES: No scleral icterus. No injection or drainage. NECK: Supple, trachea midline. No JVD or lymphadenopathy. CARDIOVASCULAR: Regular rate and rhythm without murmurs, gallops, or rubs. +1 pedal edema RESPIRATORY: Breath sounds equal bilaterally. No accessory muscle use. GASTROINTESTINAL: Abdomen soft, non-tender, nondistended. MUSCULOSKELETAL: No cyanosis, or edema. Medications and IVs Current Medications Medications (Trade) Dose Ordered Sig/Db Route Start Time Stop Time Status Last Admin (NS Flush) 2 ml UNSCH PRN IV FLUSH 09/04/16 16:45 (NS Flush) 2 ml BID IV FLUSH 09/04/16 21:00 09/06/16 08:11 (Zofran Inj) 4 mg Q6H PRN IVP 09/04/16 16:45 (Narcan Inj) 0.4 mg UNSCH PRN IV 09/04/16 16:45 (Peggy-Colace) 1 tab BID PO 09/04/16 21:00 Hold (Milk Of Magnesia Liq) 30 ml Q12H PRN PO 09/04/16 16:45 Hold (Senokot) 17.2 mg Q12H PRN PO 09/04/16 16:45 (Dulcolax Supp) 10 mg DAILY PRN RECTAL 09/04/16 16:45 Hold Lactulose 30 ml 30 ml DAILY PRN PO 09/04/16 16:45 Hold (Rocephin Inj/NS Inj) 100 ml @ 200 mls/hr Q24H IV 09/05/16 16:00 09/05/16 15:43 (Lactinex) 1 tab TID PO 09/04/16 18:00 Hold (Vitamin C) 500 mg DAILY PO 09/05/16 09:00 Hold (Ecotrin Ec) 81 mg DAILY PO 09/05/16 09:00 Hold (Oscal-D 250-125) 250 mg DAILY PO 09/05/16 09:00 Hold (Plavix) 75 mg DAILY PO 09/05/16 09:00 Hold (Depakote Dr) 250 mg BID PO 09/04/16 21:00 Hold (Lac-Hydrin 12% Lotion) 1 applic BID TOPICAL 09/04/16 21:00 09/06/16 08:12 (Synthroid) 88 mcg DAILY@0600 PO 09/05/16 06:00 Hold (Synthroid) 100 mcg DAILY@0600 PO 09/05/16 06:00 Hold (Citroma Liq) 300 ml DAILY PRN PO 09/04/16 17:45 Hold (Lopressor) 50 mg BID PO 09/04/16 21:00 Hold (Remeron) 15 mg HS PO 09/04/16 21:00 Hold (Pravachol) 10 mg HS PO 09/04/16 21:00 Hold (Fleets Enema (Adult)) 50 ml DAILY PRN RECTAL 09/04/16 17:45 (Aldactone) 25 mg DAILY PO 09/05/16 09:00 Hold (Zinc Sulfate) 220 mg DAILY PO 09/05/16 09:00 Hold (Theragran) 1 tab DAILY PO 09/05/16 09:00 Hold Pantoprazole Sodium 20 mg 20 mg DAILY PO 09/05/16 09:00 Hold (D5W-04/09 NS 1000 ml Inj) 1,000 ml @ 84 mls/hr [id number] IV 09/04/16 21:00 09/06/16 08:11 (Lovenox Inj) 40 mg Q24H SQ 09/05/16 11:00 09/05/16 11:23 (Geodon Inj) 10 mg Q12H PRN IM 09/05/16 14:45 09/05/16 17:04 (Vasotec Inj) 1.25 mg Q6HR PRN IV PUSH 09/06/16 09:00 09/06/16 08:11 Urinary Catheter: Yes Date of Insertion: September 05, 2016 Vascular Central Line Catheter: No A/P Problem List: (1) UTI (urinary tract infection) ICD Code: N39.0 Status: Acute (2) Hypokalemia ICD Code: E87.6 Status: Acute (3) Alzheimer disease ICD Code: G30.9 Status: Acute Assessment and Plan 85-year-old female with end-stage dementia who is bedbound, admitted with urinary tract infection, encephalopathy, and hypokalemia. Hypokalemia, k 2.8--4.2, resolved -Follow potassium level Urinary tract infection -Cont Rocephin -Follow urine culture, 1st culture mixed jaky, 2nd culture from [place] pending Leukocytosis, suspected related to UTI or bacteremia -Blood cultures no growth in 24 hrs Failure to thrive, suspected related to uti and dementia -Swallow eval per speech therapy, unable to complete due to patients mental status -Discussed with family on 09/05, son wants a peg tube placed and states he has been talking to Dr. Perkins, Consult placed to GI, peg planned for later today -Cont IVF Metabolic encephalopathy This is secondary to disturbances from infection -Antibiotics as above -Monitor -Supportive care LUE swelling, r/o DVT, history of bilateral LE DVT in 05/2016, patient was on heparin outpatient -Doppler US LUE shows nonocclusice thrombus in the proximal brachial vein, no dvt. BLE negative for dvt -Cont lovenox Hypothyroidism, chronic -Continue supplement Coronary artery disease, chronic -Follow clinically -Cont home medications plavix and asa Hypertension, chronic -Follow blood pressure -Continue home treatments when peg placed, enalapril IV prn End-stage dementia -Supportive care -Consult palliative care DVT prophylaxis: Lovenox Discharge Planning Will dc back to snf once peg is placed and patient is tolerating feedings Problem Qualifiers (1) UTI (urinary tract infection): Qualified Code: N39.0 - Urinary tract infection without hematuria, site unspecified Cary Jones Sep 06, 2016 09:55
--- NOTE | 2016-09-06 10:48 | HHI.GIFU ---
GI Follow-up Note Consult Follow-up Full consult dictated ASSESSMENT/PLAN: 1. Severe Protein Calorie malnutrition 2. advanced dementia 3. UTI 4. delirium may due to infection. 5. Dysphagia PLAN: 1. Keep NPO 2. Will plan for EGD dilation with PEG tube placement D/w son. risk and benefits. obtained consent. 3. Continue IV abx. It was a pleasure seeing Theresa Corona. Thank you for this consult. Entered by: Odell Roger MD Sep 06, 2016 10:48
[2016-09-06 11:11] LABS: INTERNATIONAL NORMALIZED RATIO 1.1 RATIO; PROTHROMBIN TIME - PATIENT 12.7 SEC (9.8-11.6)
[2016-09-06] MEDS: ENOXAPARIN SODIUM 40 MG/0.4 ML SYRINGE SQ SCH (12:50)
--- NOTE | 2016-09-06 12:56 | MB ---
cc: POLO ARGUELLO DATE OF CONSULTATION 09/06/2016 DATE OF 1930 ENDOSCOPIST Polo Arguello MD PRIMARY ELECTRIC CUTTER OPERATOR Chun Perkins MD REASON FOR CONSULTATION Possible PEG tube placement, dysphagia. HISTORY This is an 85-year-old female who has advanced dementia, urinary tract infection who was brought into the hospital for delirium and worsening of her symptoms. She is a longterm patient. Her son has been in discussion with Dr. Perkins for a possible feeding tube placement as an outpatient. Unfortunately due to her above symptoms of worsened delirium, she was brought into the emergency room for further workup and evaluation. She was noted to have a urinary tract infection with hyperkalemia, dehydration and therefore she was admitted for further treatment. Additionally, due to her lack of p.o. intake, GI was consulted for further assistance and possible feeding tube placement. A lot of the history is taken from the son as well as the patient's chart. The patient currently is nonverbal and has delirium, therefore is not able to answer any questions. Her son tells me that she has been complaining of having some swallowing difficulties and in the past has undergone dilation successfully. Due to the urinary tract infection, she becomes worse in her mentation and reduces her oral intake significantly. PAST MEDICAL HISTORY 1. Alzheimer's disease 2. High blood pressure 3. History of CVA 4. Diminished hearing 5. Overactive bladder 6. History of hiatal hernia PAST SURGICAL HISTORY 1. Hernia repair 2. Appendectomy 3. Cholecystectomy 4. Thyroid surgery 5. Hysterectomy ALLERGIES CELECOXIB, HALOPERIDOL, RESPIRIDONE, ASPIRIN, SULFA, THORAZINE. HOME MEDICATIONS Please see MAR for a complete list. FAMILY HISTORY Noncontributory. No GI malignancies. SOCIAL HISTORY Occasional alcohol use per the chart. No tobacco or illicit use. The patient is a longterm patient. REVIEW OF SYSTEMS A twelve-point review of systems was unable to be obtained due to the patient's mentation and severe dimension. PHYSICAL EXAM VITAL SIGNS: 97.0, pulse 70, respiratory 17, blood pressure 176/105, O2 sat 81%. HEENT: Mucosa dry, but pink. Extraocular movements are spontaneous. The patient is difficult to examine. NECK: No thyromegaly. No lymphadenopathy. CARDIOVASCULAR: Normal rate, rhythm. RESPIRATORY: Nonlabored. GASTROINTESTINAL: Soft, nontender, nondistended. Bowel sounds present in all four quadrants. No hepatomegaly appreciated. EXTREMITIES: No edema noted. MUSCULOSKELETAL: Equal strength. Upper and lower extremities, the patient is in restraints, therefore unable to complete exam. NEUROLOGIC: Unable to examine the patient is awake, but not alert or oriented. PSYCHIATRIC: The patient is not cooperative and has delirium. LABORATORY DATA WBC 12.2, hemoglobin 9.4, platelet count of 291. Sodium 143, chloride 108, bicarb 30, BUN 6, creatinine 0.55, INR 1.1, positive urinalysis. IMPRESSION 1. Severe protein calorie malnutrition due to multiple metabolic abnormalities, infectious process, as well as advance dementia. 2. Episodic dysphagia. The patient has been dilated in the past with some improvement of her overall symptoms. The patient recently underwent a swallow evaluation by speech, but due to her lack of following commands, the test was not successful. PLAN 1. Urinary tract infection with early sepsis. 2. Electrolyte abnormalities of hypokalemia improving. 3. Dehydration secondary to lack of oral intake. RECOMMENDATIONS Keep the patient n.p.o. for now. I had a discussion over the phone with the patient's son regarding the risks and benefits of feeding tube placement. This has been discussed with him in the past with Dr. Perkins. Initially, there was some confusion about Dr. Perkins doing the procedure. I explained that while she is in the hospital, I would be taking care of her as the policy of the practice. Again, the risks and benefits were all explained. He will decide about having feeding tube done and undergoing dilation at the same time. Thank you for allowing us to participate in the care of this patient. We will follow up along with you and make recommendation as per the patient's clinical course. MD BALJEET Alejo/MAGDA /11:21 AM /12:41 PM SILVIA
[2016-09-06] MEDS: cefTRIAXone INJ 1,000 MG in SODIUM CHLORIDE 0.9% INJ 100 ML IV SCH (16:07)
--- NOTE | 2016-09-06 16:41 | PD.CONS ---
Consult Service Palliative Care Consult Requested By Dr. Maldonado Primary Care Physician Unknown Reason for Consultation a. To assist with evaluation and management of symptoms including:agitation. b. To assist medical decision maker(s) with: better understanding of current medical conditions; weighing benefits/burdens of medical treatment options; making medical treatment decisions. HPI History of Present Illness 85 year old with pmh significant of ES-dementia, hypertension. CAD, CVA, GERD, Worley's esophagus, esophageal stricture. Patient is a [facility] resident. She was seen by palliative care during April 2016 to review goals of care given that patient was eating and drinking very little. Patient son met with hospice but ultimately declined hospice. Patient return to the hospital on 09/04/2016 secondary to blood in her diaper. She has chronic stage IV decubitus ulcer and likely that may be the source of her bleeding. Patient is confused and eating very poorly. She is found to have a UTI and is being treated. She has hypokalemia which was corrected. Palliative care was consulted to review goals of care given patient's end-stage dementia On my visit patient open eyes, and agitated. During my examination patient scratched and attempted to spit at me. Patient is very confused and could not give any history, follow commands. I was able to meet patient's son Luis Fernando. I went through the natural progression of dementia, and that she is at her end-stage. Discuss the challenges that days ahead of her. I feel clinical despite PEG tube placement, she likely will not be able to get a nutritional/ fuctional rebound that he is hoping for. Discussed pt's agitation including pulling out PEG tube. I also reviewed even with the PEG tube, she may continue to have UTIs which she is to predispose to, have malfunction of the PEG tube, infection etc. Patient's son, listened but wanted " to try and do everything he can for his mother." He endorses a full code. He signed consents for PEG tube placement today. Function/Cognitive Trajectory Incision dementia, eating drinking very little. Has bedsores. Debilitated and dependent on all ADLs. Nursing facility resident. Review of Systems ROS Limitations: Clinical Condition Past Family Social History Coded Allergies: Celecoxib (Verified Allergy, Unknown, 09/04/16) Haloperidol (Verified Allergy, Unknown, 09/04/16) Risperidone (Verified Allergy, Unknown, 09/04/16) Sulfa (Verified Allergy, Unknown, 09/04/16) Aspirin (Verified Adverse Reaction, Intermediate, NOSE BLEEDS, 09/04/16) Thorazine (Verified Adverse Reaction, Intermediate, CRAMPS, 09/04/16) *MDRO Multi-Drug Resistant Organism (Verified Adverse Reaction, Unknown, ESBL, 09/10/16) ESBL (urine) - 09/05/16 Past Medical History Coronary artery disease Hypertension excellent CVA Gastroesophageal reflux disease Worley's esophagitis Esophageal strictures Dementia Bipolar disorder Hypothyroidism Past Surgical History History of esophageal dilation Total left knee arthroplasty Thyroidectomy Appendectomy Cholecystectomy Hysterectomy Nabeel fundoplication Reported Medications Ammonium Lactate (Lactic Acid (Ammonium Lactate)) 12% Lotn 1 Applic TOPICAL BID Apply to whole body every day and evening shift Milk of Magnesia Liq (Magnesium Hydroxide) 400 Mg/5 Ml Susp 30 Ml PO HS PRN Enema Disposable (Sodium Phosphates) 1 Karoline Karoline 1 Applic RECTAL DAILY PRN Dulcolax Supp (Bisacodyl) 10 Mg Supp 10 Mg RECTAL DAILY PRN Citroma Liq (Magnesium Citrate) 300 Ml Liq 300 Ml PO IN THE AM PRN Aldactone (Spironolactone) 25 Mg Tab 25 Mg PO DAILY Dextrose 5% (Dextrose) 5 % Inj IV Q8HR IV TO RUN AT 90ML/HR EVERY SHIFT Calcium 600 with Vitamin D (Calcium Carbonate-Cholecalciferol) 600-400 mg-Unit Tab 1 Tab PO DAILY Aspirin Adult Low Strength (Aspirin) 81 Mg Tabdr 81 Mg PO DAILY Metoprolol Tartrate 50 Mg Tab 50 Mg PO BID Ascorbic Acid 500 Mg Tab 500 Mg PO DAILY Multi-Vitamins (Multiple Vitamin) 1 Tab Tab 1 Tab PO DAILY Zinc Sulfate 220 Mg Tab 220 Mg PO DAILY Remeron (Mirtazapine) 15 Mg Tab 15 Mg PO HS Pravastatin 10 Mg Tab 10 Mg PO HS Omeprazole 20 Mg Tab 20 Mg PO DAILY Divalproex DR (Divalproex Sodium) 250 Mg Tabdr 250 Mg PO BID Clopidogrel (Clopidogrel Bisulfate) 75 Mg Tab 75 Mg PO DAILY Albuterol Neb (Albuterol Sulfate) 0.63 Mg/3 Ml Neb 0.63 Mg NEB Q6HR NEB PRN Current Medications Medications (Trade) Dose Ordered Sig/Db Route Start Time Stop Time Status Last Admin (NS Flush) 2 ml UNSCH PRN IV FLUSH 09/04/16 16:45 (NS Flush) 2 ml BID IV FLUSH 09/04/16 21:00 09/06/16 08:11 (Zofran Inj) 4 mg Q6H PRN IVP 09/04/16 16:45 (Narcan Inj) 0.4 mg UNSCH PRN IV 09/04/16 16:45 (Peggy-Colace) 1 tab BID PO 09/04/16 21:00 Hold (Milk Of Magnesia Liq) 30 ml Q12H PRN PO 09/04/16 16:45 Hold (Senokot) 17.2 mg Q12H PRN PO 09/04/16 16:45 (Dulcolax Supp) 10 mg DAILY PRN RECTAL 09/04/16 16:45 Hold Lactulose 30 ml 30 ml DAILY PRN PO 09/04/16 16:45 Hold (Rocephin Inj/NS Inj) 100 ml @ 200 mls/hr Q24H IV 09/05/16 16:00 09/06/16 16:07 (Lactinex) 1 tab TID PO 09/04/16 18:00 Hold (Vitamin C) 500 mg DAILY PO 09/05/16 09:00 Hold (Ecotrin Ec) 81 mg DAILY PO 09/05/16 09:00 Hold (Oscal-D 250-125) 250 mg DAILY PO 09/05/16 09:00 Hold (Plavix) 75 mg DAILY PO 09/05/16 09:00 Hold (Depakote Dr) 250 mg BID PO 09/04/16 21:00 Hold (Lac-Hydrin 12% Lotion) 1 applic BID TOPICAL 09/04/16 21:00 09/06/16 08:12 (Synthroid) 88 mcg DAILY@0600 PO 09/05/16 06:00 Hold (Synthroid) 100 mcg DAILY@0600 PO 09/05/16 06:00 Hold (Citroma Liq) 300 ml DAILY PRN PO 09/04/16 17:45 Hold (Lopressor) 50 mg BID PO 09/04/16 21:00 Hold (Remeron) 15 mg HS PO 09/04/16 21:00 Hold (Pravachol) 10 mg HS PO 09/04/16 21:00 Hold (Fleets Enema (Adult)) 50 ml DAILY PRN RECTAL 09/04/16 17:45 (Aldactone) 25 mg DAILY PO 09/05/16 09:00 Hold (Zinc Sulfate) 220 mg DAILY PO 09/05/16 09:00 Hold (Theragran) 1 tab DAILY PO 09/05/16 09:00 Hold Pantoprazole Sodium 20 mg 20 mg DAILY PO 09/05/16 09:00 Hold (D5W-1/2 NS 1000 ml Inj) 1,000 ml @ 84 mls/hr [id number] IV 09/04/16 21:00 09/06/16 08:11 (Lovenox Inj) 40 mg Q24H SQ 09/05/16 11:00 09/06/16 12:50 (Geodon Inj) 10 mg Q12H PRN IM 09/05/16 14:45 09/05/16 17:04 (Vasotec Inj) 1.25 mg Q6HR PRN IV PUSH 09/06/16 09:00 09/06/16 08:11 Family History Myocardial infarction, CVA, and COPD in patient's mother and other family members Substance Use Tobacco: No Alcohol: No Prescription med abuse: No Illicits: No Psychosocial History Has a son, has been note of the facility. Appears due to patient's dementia has struck out at screeners in the hospital in the past. Patient is listed as college educated, and was in the Spiritual/Cultural Factors Orthodox Living Will: Completed, but not made available Health Care Surrogate(s): Luis Fernando Corona Family/friends goals: Get PEG tube in the hopes that nutritional status, and wounds would heal better. Go back to nursing facility. Not interested in hospice. Physical Exam Vital Signs Date Time Temp Pulse Resp B/P Pulse Ox O2 Delivery O2 Flow Rate FiO2 09/06/16 15:45 70 20 123/75 100 09/06/16 14:00 96 09/06/16 11:18 88 20 131/62 80 09/06/16 07:46 97.0 70 17 176/105 81 09/06/16 04:43 98.0 62 18 120/59 96 09/05/16 21:00 98.0 77 18 156/74 97 09/05/16 20:20 67 09/05/16 09/06/16 19:00 07:00 Output Total 250 ml Balance -250 ml Output Urine Total 250 ml Exam CONSTITUTIONAL/GENERAL: This is frail elderly lady in restraints. Agitated, spoke only 2 words, non-sensicle. Attempt to scratch and spit TUBES/LINES/DRAINS:piv, woods. SKIN: No jaundice, rashes, or lesions. Ecchymoses on upper extremities. No wounds seen anteriorly. Reported Sacral decubitus wounds for which I cannot examine due to patient noncompliance, and agitation HEAD: Atraumatic. Normocephalic. EYES: Pupils equal and round and reactive. Extraocular motions intact. No scleral icterus. No injection or drainage. 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 Nose without bleeding or purulent drainage. Throat without visible erythema, exudates, masses, or lesions. NECK: Trachea midline. Supple, nontender. No palpable thyroid enlargement or nodularity. CARDIOVASCULAR: Regular rate and rhythm without murmurs, gallops, or rubs. No JVD. Peripheral pulses symmetric. RESPIRATORY/CHEST: Symmetric, unlabored respirations. Clear to auscultation. Breath sounds equal bilaterally. No wheezes, rales, or rhonchi. GASTROINTESTINAL: Abdomen soft, non-tender, nondistended. No hepato-splenomegaly , or palpable masses. No guarding. Bowel sounds present. GENITOURINARY: Without palpable bladder distension. Woods catheter in place. MUSCULOSKELETAL: Extremities without clubbing, cyanosis, or edema. No joint tenderness or effusion noted. No calf tenderness. No mottling or clubbing. LYMPHATICS: No palpable cervical or supraclavicular adenopathy. NEUROLOGICAL: Awake and alert. Confused and agitated PSYCHIATRIC: Agitated Diagnostic Tests Laboratory Laboratory Tests Test 09/04/16 09/04/16 09/04/16 09/05/16 12:20 15:45 19:50 06:53 White Blood Count 13.6 TH/MM3 (4.0-11.0) Red Blood Count 3.70 MIL/MM3 (4.00-5.30) Hemoglobin 10.7 GM/DL (11.6-15.3) Hematocrit 32.5 % (35.0-46.0) Mean Corpuscular Volume 87.8 FL (80.0-100.0) Mean Corpuscular Hemoglobin 29.1 PG (27.0-34.0) Mean Corpuscular Hemoglobin 33.1 % Concent (32.0-36.0) Red Cell Distribution Width 15.2 % (11.6-17.2) Platelet Count 391 TH/MM3 (150-450) Mean Platelet Volume 7.5 FL (7.0-11.0) Neutrophils (%) (Auto) 64.6 % (16.0-70.0) Lymphocytes (%) (Auto) 15.0 % (9.0-44.0) Monocytes (%) (Auto) 12.9 % (0.0-8.0) Eosinophils (%) (Auto) 6.8 % (0.0-4.0) Basophils (%) (Auto) 0.7 % (0.0-2.0) Neutrophils # (Auto) 8.8 TH/MM3 (1.8-7.7) Lymphocytes # (Auto) 2.0 TH/MM3 (1.0-4.8) Monocytes # (Auto) 1.8 TH/MM3 (0-0.9) Eosinophils # (Auto) 0.9 TH/MM3 (0-0.4) Basophils # (Auto) 0.1 TH/MM3 (0-0.2) CBC Comment DIFF FINAL Differential Comment Sodium Level 142 MEQ/L 145 MEQ/L (136-145) (136-145) Potassium Level 2.8 MEQ/L 3.2 MEQ/L 4.2 MEQ/L (3.5-5.1) (3.5-5.1) (3.5-5.1) Chloride Level 104 MEQ/L 108 MEQ/L (98-107) (98-107) Carbon Dioxide Level 31.9 MEQ/L 31.1 MEQ/L (21.0-32.0) (21.0-32.0) Anion Gap 6 MEQ/L (5-15) 6 MEQ/L (5-15) Blood Urea Nitrogen 5 MG/DL (7-18) 6 MG/DL (7-18) Creatinine 0.45 MG/DL 0.52 MG/DL (0.50-1.00) (0.50-1.00) Estimat Glomerular Filtration 133 ML/MIN 113 ML/MIN Rate (>89) (>89) Random Glucose 75 MG/DL 67 MG/DL (74-106) (74-106) Calcium Level 8.2 MG/DL 8.1 MG/DL (8.5-10.1) (8.5-10.1) Urine Color YELLOW (YELLW/STRAW) Urine Turbidity HAZY (CLEAR) Urine pH 6.5 (5.0-8.5) Urine Specific [place] 1.005 (1.002-1.035) Urine Protein NEG mg/dL (NEG-TRACE) Urine Glucose (UA) NEG mg/dL (NEG) Urine Ketones NEG mg/dL (NEG) Urine Occult Blood NEG (NEG) Urine Nitrite POS (NEG) Urine Bilirubin NEG (NEG) Urine Urobilinogen LESS THAN 2.0 MG/DL (LESS THAN 2.0) Urine Leukocyte Esterase LARGE (NEG) Urine RBC 4 /hpf (0-3) Urine WBC 82 /hpf (0-5) Urine WBC Clumps FEW (NONE) Urine Squamous Epithelial <1 /hpf (0-5) Cells Urine Amorphous Sediment RARE Urine Bacteria MANY /hpf (NONE) Urine Mucus FEW /lpf (OCC) Microscopic Urinalysis Comment CATH-CULTURE IND Test 09/05/16 09/05/16 09/06/16 09/06/16 10:35 14:38 08:20 08:28 White Blood Count 11.4 TH/MM3 12.2 TH/MM3 (4.0-11.0) (4.0-11.0) Red Blood Count 3.40 MIL/MM3 3.24 MIL/MM3 (4.00-5.30) (4.00-5.30) Hemoglobin 9.9 GM/DL 9.4 GM/DL (11.6-15.3) (11.6-15.3) Hematocrit 30.4 % 29.1 % (35.0-46.0) (35.0-46.0) Mean Corpuscular Volume 89.3 FL 90.0 FL (80.0-100.0) (80.0-100.0) Mean Corpuscular Hemoglobin 29.2 PG 29.2 PG (27.0-34.0) (27.0-34.0) Mean Corpuscular Hemoglobin 32.7 % 32.4 % Concent (32.0-36.0) (32.0-36.0) Red Cell Distribution Width 15.5 % 15.8 % (11.6-17.2) (11.6-17.2) Platelet Count 373 TH/MM3 291 TH/MM3 (150-450) (150-450) Mean Platelet Volume 7.7 FL 7.7 FL (7.0-11.0) (7.0-11.0) Neutrophils (%) (Auto) 61.1 % 53.7 % (16.0-70.0) (16.0-70.0) Lymphocytes (%) (Auto) 18.1 % 21.0 % (9.0-44.0) (9.0-44.0) Monocytes (%) (Auto) 12.0 % 15.9 % (0.0-8.0) (0.0-8.0) Eosinophils (%) (Auto) 7.7 % (0.0-4.0) 8.3 % (0.0-4.0) Basophils (%) (Auto) 1.1 % (0.0-2.0) 1.1 % (0.0-2.0) Neutrophils # (Auto) 7.0 TH/MM3 6.5 TH/MM3 (1.8-7.7) (1.8-7.7) Lymphocytes # (Auto) 2.1 TH/MM3 2.6 TH/MM3 (1.0-4.8) (1.0-4.8) Monocytes # (Auto) 1.4 TH/MM3 1.9 TH/MM3 (0-0.9) (0-0.9) Eosinophils # (Auto) 0.9 TH/MM3 1.0 TH/MM3 (0-0.4) (0-0.4) Basophils # (Auto) 0.1 TH/MM3 0.1 TH/MM3 (0-0.2) (0-0.2) CBC Comment DIFF FINAL DIFF FINAL Differential Comment Blood Gas Puncture Site RT RADIAL Blood Gas Patient Temperature 98.6 Blood Gas HCO3 29 mmol/L (22-26) Blood Gas Base Excess 5.0 mmol/L (-2-2) Blood Gas Oxygen Saturation 95 % (90-100) Arterial Blood pH 7.49 (7.380-7.420) Arterial Blood Partial 38 mmHg (38-42) Pressure CO2 Arterial Blood Partial 78 mmHG Pressure O2 (61-120) Arterial Blood Oxygen Content 14.3 Vol % (12.0-20.0) Arterial Blood 1.4 % (0-4) Carboxyhemoglobin Arterial Blood Methemoglobin 0.5 % (0-2) Blood Gas Hemoglobin 10.7 G/DL (12.0-16.0) Oxygen Delivery Device ROOM AIR Blood Gas Inspired Oxygen 21 % Sodium Level 143 MEQ/L (136-145) Potassium Level 3.5 MEQ/L (3.5-5.1) Chloride Level 108 MEQ/L (98-107) Carbon Dioxide Level 30.9 MEQ/L (21.0-32.0) Anion Gap 4 MEQ/L (5-15) Blood Urea Nitrogen 6 MG/DL (7-18) Creatinine 0.55 MG/DL (0.50-1.00) Estimat Glomerular Filtration 106 ML/MIN Rate (>89) Random Glucose 73 MG/DL (74-106) Calcium Level 8.3 MG/DL (8.5-10.1) Test 09/06/16 10:35 Prothrombin Time 12.7 SEC (9.8-11.6) Prothromb Time International 1.1 RATIO Ratio Result Diagram: 09/06/16 0828 09/06/16 0820 Microbiology Microbiology Date/Time Procedure Status Source Growth 09/04/16 15:45 Urine Culture - Final Complete Urine Catheterized Urine 50-100,000 CFU/ML MIXED ALLA... 09/05/16 11:20 Aerobic Blood Culture - Preliminary Resulted Blood Peripheral NO GROWTH IN 1 DAY 09/05/16 11:20 Anaerobic Blood Culture - Preliminary Resulted Blood Peripheral NO GROWTH IN 1 DAY 09/05/16 11:32 Aerobic Blood Culture - Preliminary Resulted Blood Peripheral NO GROWTH IN 1 DAY 09/05/16 11:32 Anaerobic Blood Culture - Preliminary Resulted Blood Peripheral NO GROWTH IN 1 DAY 09/05/16 22:20 Urine Culture - Preliminary Resulted Urine Catheterized Urine IMMATURE GROWTH - REINCUBATE Imaging Last Impressions Upper Extremity Ultrasound 09/05/16 0000 Signed Impressions: Service Date/Time: Monday, September 05, 2016 10:33 - CONCLUSION: Nonocclusive thrombus in the proximal brachial vein. Deep venous system of the left upper extremity is otherwise patent. Russel Santamaria MD Lower Extremity Ultrasound 09/05/16 0000 Signed Impressions: Service Date/Time: Monday, September 05, 2016 10:58 - CONCLUSION: 1. No DVT seen on the current study. 2. Subcutaneous edema involving both lower legs. Ang Lopez Jr., MD Procedures Plan for PEG tube placement 09/06/2016 Patient/Family Conference Present at Family Conference: Luis Fernando long's son Family Conference Time (mins): 35 Family Conference Location: Bedside Issues Discussed: * Palliative care role, purpose, approach * Additional medical, psychosocial, and spiritual history * Patients general health, functional status, and cognitive changes in the months leading up to the current hospitalization * Patient/family understanding of the current medical problems * Patient/family understanding of prognosis * Patients goals of care as best understood from advance directives and/or conversations and/or values * Current medical treatment options and benefits/burdens of those options * Likely scenarios comparing ongoing aggressive care with a transition to comfort measures only * Questions answered to the best of my ability * Palliative care contact information provided Assessment and Plan Disease Oriented Problem List: (1) BipolarII (2) Alzheimer disease (3) Hypokalemia (4) UTI (urinary tract infection) (5) Malnutrition (6) Sacral decubitus ulcer Symptom Scale: (1) Agitation 0-10 Scale: Unable to quantify Pertinent Non-Medical Issues Psychosocial: Spiritual: Legal: Ethical issues impacting care: Important Contacts Luis Fernando Coroan [phone] or [phone] Prognosis 85-year-old with end-stage dementia, has history of aspiration pneumonia. Eating very poorly. Even with PEG tube placement patient is a candidate for hospice if goals of care with family members are for comfort measures only. Code Status: Full Code Plan == CODE STATUS-full code == Capacity-patient has no capacity == Healthcare surrogate-son Luis Fernando Corona == Goals of care: I went through the natural progression of dementia, and that she is at her end-stage. Discuss the challenges that days ahead of her. I feel clinicallu, despite PEG tube placement, she likely will not be able to get a nutritional/ functional rebound that he is hoping for. Discussed pt's agitation including pulling out PEG tube. I also reviewed even with the PEG tube, she may continue to have UTIs which she is to predispose to, have malfunction of the PEG tube, infection etc. Patient's son, listened but wanted " to try and do everything he can for his mother." He endorses a full code. He signed consents for PEG tube placement today. Her dementia will continue to progress. Patient's son, listened, but he wanted to try "to do everything he can for his mother." He endorses a full code. He signed consents for PEG tube placement today. He's not interested in hospice. Patient's son had met with hospice during last hospitalization and declined hospice. I do not foresee changing goals of care in the foreseeable future unless there is another acute event. == Agitation-is a result of patient's bipolar and dementia. No new med rec == Palliative care will fall to provide support for family. Time Spent Total Floor Time (mins): 80 Face to Face Time (mins): 50 >50% Counseling/Coord of Care: Yes Thank you for the opportunity to participate in the care of Ms. Corona. Attestation To help prompt me to consider important information that might be impacting today's encounter and assessment, information from prior notes written by myself or my colleagues may have been "brought forward" into today's note. My signature on this note, however, is an attestation that I personally performed the exam, history, and/or decision-making noted today, and, unless otherwise indicated, the interactions with patient, family, and staff as well as the review of records all occurred today. I also attest that the listed assessment and stated plan reflect my best clinical judgment today based on the combination of historical information, prior notes, and today's exam/ interactions. When time spent is documented, it refers only to time spent today by the signer, or if indicated, combined time spent today by collaborating physician/nurse practitioner. Cortes Quinteros MD Sep 06, 2016 16:41
[2016-09-06] MEDS ORDERED: KETAMINE HCL 500 MG/5 ML VIAL ONE (17:13)
[2016-09-06] MEDS ORDERED: PROPOFOL 200 MG/20 ML AMP IV ONE (17:54)
[2016-09-06] MEDS ORDERED: LACTATED RINGER'S 1,000 ML BAG IV ONE (18:10)
[2016-09-06] MEDS ORDERED: DO NOT ADM ANY ANTICOAGULANT DRUGS PRN (18:28)
--- NOTE | 2016-09-06 18:32 | GIPROC ---
[facility] [address] [facility]. [facility], [id number] EGD WITH PEG PROCEDURE REPORT EXAM DATE: 09/06/2016 PATIENT NAME: Theresa Corona MR#: [id number] BIRTHDATE: 1930 ATTENDING: Odell Persaud MD ORDER #: [id number] DRYLAND FARMER: Martha Vargas STATUS: inpatient INDICATIONS: The patient is a 85 yr old female here for an EGD with PEG due to weight loss, dysphagia, and placement of PEG PROCEDURE PERFORMED: EGD with PEG placement EGD with dilatation over guidewire MEDICATIONS: Per Anesthesia and None. TOPICAL ANESTHETIC: CONSENT: The patient understands the risks and benefits of the procedure and understands that these risks include, but are not limited to: sedation, allergic reaction, infection, perforation and/or bleeding. Alternative means of evaluation and treatment include, among others: physical exam, x-rays, and/or surgical intervention. The patient elects to proceed with this endoscopic procedure. medical equipment was checked for proper function. Hand hygiene and appropriate measures for infection prevention was taken. After the risks, benefits and alternatives of the procedure were thoroughly explained, Informed consent was verified, confirmed and timeout was successfully executed by the treatment team. The patient was anesthetized with topical anesthesia and the Pentax [id number] endoscope was introduced through the mouth and advanced to the descending duodenum. The instrument was slowly withdrawn as the mucosa was fully examined. A stricture was found in the distal esophagus. Savory dilatior 15 mm was used over a guidewire. An ulcer was found in the descending duodenum. Shallow non bleeding s. The stomach was entered and closely examined. The antrum, angularis, and lesser curvature were well visualized, including a retroflexed view of the cardia and fundus. The stomach wall was normally distensable. The scope passed easily through the pylorus into the duodenum. The stomach was then inflated with air, and by a combination of transillumination and manual palpation, the site for the gastrostomy tube placement was selected and marked on the anterior abdominal wall. The skin of the anterior abdomen was surgically prepped and draped with sterile towels. Utilizing strict sterile technique, the selected site was then anesthetized with 1% xylocaine by injection into the skin and subcutaneous tissue. The needle/cannula assembly was then passed through the abdominal wall and through the anterior wall of the stomach, maintaining visualization with the endoscope. A snare device previously placed through the instrument channel was then opened and placed around the cannula, the needle was removed, and the insertion wire was passed through the cannula and into the stomach lumen. The snare was then loosened from the cannula, and repositioned to snare the insertion wire. The snare was then pulled up to the endoscope distal tip, and the scope was then withdrawn bringing with it the snare and insertion wire. The insertion wire was then released from the snare, and then loop-attached to the A 20 Fr gastrostomy tube. Using the "pull technique", the G-tube was then pulled into place by traction on the insertion wire at the abdominal wall end. The G-tube insertion site was then cleansed once again, and the external bolster was placed over the tube to secure it to the abdominal wall. A sterile dressing was then applied, and the procedure terminated. a hiatal hernia The gastroscope was then slowly withdrawn and removed. ADVERSE EVENT: There were no complications. IMPRESSIONS: 1. A stricture was found in the distal esophagus 2. An ulcer was found in the descending duodenum 3. The stomach was entered and closely examined. The antrum, angularis, and lesser curvature were well visualized, including a retroflexed view of the cardia and fundus. The stomach wall was normally distensable. The scope passed easily through the pylorus into the duodenum. 4. A hiatal hernia RECOMMENDATIONS: 1. PEG recomendations: 1- NPO for 6 hours except for meds 2- Flush PEG tube every 6 hours with water and after each PEG feeding 3- May resume regular diet in the morning 4- May use Ensure or Boost etc. for PEG tube feeding (consult pharmacologist) 2. Begin feeding tomorrow 3. Continue PPI 4. Dilatations PRN 5. Avoid NSAIDS 6. Protonix 40mg BID REPEAT EXAM: Odell Persaud MD eSigned: Odell Persaud MD 09/06/2016 6:32 PM cc: PATIENT NAME: Theresa Corona MR#: [id number]
[2016-09-07] VITALS (7 sets, daily range): BP systolic 114–155; BP diastolic 55–78; PULSE 62–93; RESP 18–20; TEMP 97.4–98.6; O2SAT 90–97
[2016-09-07] MEDS: DEXT 5%-NACL 0.45% 1000 ML INJ 1,000 ML IV SCH (08:35)
[2016-09-07] MEDS: LACTIC ACID (AMMONIUM LACTATE) 12% LOTION 225 GM BTL TOPICAL SCH ×2 (08:53→20:57)
[2016-09-07] MEDS: SODIUM CHLORIDE 0.9% FLUSH 10 ML FLUSH IV FLUSH SCH ×2 (08:53→20:46)
--- NOTE | 2016-09-07 10:15 | HHI.GIFU ---
GI Follow-up Note Consult Follow-up Subjective: Patient laying in bed, no acute distress. No fever or chills. s/p PEG tube pod 1 no issues. Objective: PHYSICAL EXAMINATION: Vitals signs stable No fever HEENT: normocephalic; atraumatic; NECK: Neck is supple, no JVD, no lymphadenopathy. CHEST: no wheezing CARDIAC: Regular rate and rhythm with no murmur gallop or rubs. ABDOMEN: Soft, nondistended, nontender; no hepatosplenomegaly; bowel sounds are present in all four quadrants. peg site clean EXTREMITIES: No clubbing, cyanosis, or edema. SKIN: Normal; no rash; no jaundice. [employer] OFFICER: tremor Available Data (labs, X- Rays, Procedures) : reviewed. ASSESSMENT/PLAN: 1. s/p PEG 2. duodenal shallow ulcers 3. Esophageal stricture s/p dilation PLAN: 1. Ok to start TF today 2. Protonix 40 mg daily 3. Avoid NDSAIDS. 4. diet as tolerated per break and load operator. 5. Will sign off call for questions. It was a pleasure seeing Theresa Corona. Thank you for this consult. Entered by: Odell Roger MD Sep 07, 2016 10:15 Odell Persaud MD Sep 07, 2016 10:15
--- NOTE | 2016-09-07 10:50 | HHI.HCPN ---
Reason for visit a. To assist with evaluation and management of symptoms including:agitation. b. To assist medical decision maker(s) with: better understanding of current medical conditions; weighing benefits/burdens of medical treatment options; making medical treatment decisions. Subjective/Interval History Pt s/p gi procedure/ peg tube placement. Per GI note pt had some respiratory distress, but apparently is better this morning. She was sleeping peacfully, but when awake is agitated, and attempted to scratch me again. Family/friend interactions Called son, updated patient, included respiratory distress s/p procedure per GI note. Review pt's alzheimers and offered hopsice. Goals remains aggressive, not ready for transition to comfort measures only. Is a full code. Goals are aggressive. Advance Directives Living Will: Completed, but not made available Advance Directive Specifics Health Care Surrogate(s): Luis Fernando Corona Objective Vital Signs Date Time Temp Pulse Resp B/P Pulse Ox O2 Delivery O2 Flow Rate FiO2 09/07/16 08:13 97.4 62 18 155/78 93 09/07/16 07:48 93 21 09/07/16 05:13 98.5 77 18 131/72 97 09/07/16 00:30 69 09/06/16 23:40 98.8 68 16 122/62 94 09/06/16 20:01 98.8 68 16 128/68 94 09/06/16 19:35 93 Nasal Cannula 3.00 09/06/16 19:00 82 16 134/59 99 Nasal Cannula 2 09/06/16 18:45 81 16 123/64 99 Nasal Cannula 2 09/06/16 18:30 79 16 132/62 100 Nasal Cannula 2 09/06/16 18:20 98.7 74 16 112/68 100 Nasal Cannula 2 09/06/16 16:46 97.0 88 20 131/62 96 09/06/16 15:45 70 20 123/75 100 09/06/16 14:00 96 09/06/16 11:18 88 20 131/62 80 Physical Exam CONSTITUTIONAL/GENERAL: This is frail elderly lady Agitated when awake. Attempt to scratch and spit TUBES/LINES/DRAINS:piv, woods. SKIN: No jaundice, rashes, or lesions. Reported Sacral decubitus wounds for which I cannot examine due to patient noncompliance, and agitation HEAD: Atraumatic. Normocephalic. EYES: Extraocular motions intact. No scleral icterus. No injection or drainage. 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 Nose without bleeding or purulent drainage. NECK: Trachea midline. Supple, nontender. No palpable thyroid enlargement or nodularity. CARDIOVASCULAR: Regular rate and rhythm without murmurs, gallops, or rubs. No JVD. Peripheral pulses symmetric. RESPIRATORY/CHEST: Symmetric, unlabored respirations. Clear to auscultation. Breath sounds equal bilaterally. No wheezes, rales, or rhonchi. GASTROINTESTINAL: Abdomen soft, non-tender, nondistended. No hepato-splenomegaly , or palpable masses.peg tube GENITOURINARY: Without palpable bladder distension. Woods catheter in place. MUSCULOSKELETAL: Extremities without clubbing, cyanosis, or edema. No joint tenderness or effusion noted. No calf tenderness. LYMPHATICS: No palpable cervical or supraclavicular adenopathy. NEUROLOGICAL: Awake and alert. Confused and agitated PSYCHIATRIC: Agitated Diagnostic Tests Laboratory Laboratory Tests Test 09/04/16 09/04/16 09/04/16 09/05/16 12:20 15:45 19:50 06:53 White Blood Count 13.6 TH/MM3 (4.0-11.0) Red Blood Count 3.70 MIL/MM3 (4.00-5.30) Hemoglobin 10.7 GM/DL (11.6-15.3) Hematocrit 32.5 % (35.0-46.0) Mean Corpuscular Volume 87.8 FL (80.0-100.0) Mean Corpuscular Hemoglobin 29.1 PG (27.0-34.0) Mean Corpuscular Hemoglobin 33.1 % Concent (32.0-36.0) Red Cell Distribution Width 15.2 % (11.6-17.2) Platelet Count 391 TH/MM3 (150-450) Mean Platelet Volume 7.5 FL (7.0-11.0) Neutrophils (%) (Auto) 64.6 % (16.0-70.0) Lymphocytes (%) (Auto) 15.0 % (9.0-44.0) Monocytes (%) (Auto) 12.9 % (0.0-8.0) Eosinophils (%) (Auto) 6.8 % (0.0-4.0) Basophils (%) (Auto) 0.7 % (0.0-2.0) Neutrophils # (Auto) 8.8 TH/MM3 (1.8-7.7) Lymphocytes # (Auto) 2.0 TH/MM3 (1.0-4.8) Monocytes # (Auto) 1.8 TH/MM3 (0-0.9) Eosinophils # (Auto) 0.9 TH/MM3 (0-0.4) Basophils # (Auto) 0.1 TH/MM3 (0-0.2) CBC Comment DIFF FINAL Differential Comment Sodium Level 142 MEQ/L 145 MEQ/L (136-145) (136-145) Potassium Level 2.8 MEQ/L 3.2 MEQ/L 4.2 MEQ/L (3.5-5.1) (3.5-5.1) (3.5-5.1) Chloride Level 104 MEQ/L 108 MEQ/L (98-107) (98-107) Carbon Dioxide Level 31.9 MEQ/L 31.1 MEQ/L (21.0-32.0) (21.0-32.0) Anion Gap 6 MEQ/L (5-15) 6 MEQ/L (5-15) Blood Urea Nitrogen 5 MG/DL (7-18) 6 MG/DL (7-18) Creatinine 0.45 MG/DL 0.52 MG/DL (0.50-1.00) (0.50-1.00) Estimat Glomerular Filtration 133 ML/MIN 113 ML/MIN Rate (>89) (>89) Random Glucose 75 MG/DL 67 MG/DL (74-106) (74-106) Calcium Level 8.2 MG/DL 8.1 MG/DL (8.5-10.1) (8.5-10.1) Urine Color YELLOW (YELLW/STRAW) Urine Turbidity HAZY (CLEAR) Urine pH 6.5 (5.0-8.5) Urine Specific [place] 1.005 (1.002-1.035) Urine Protein NEG mg/dL (NEG-TRACE) Urine Glucose (UA) NEG mg/dL (NEG) Urine Ketones NEG mg/dL (NEG) Urine Occult Blood NEG (NEG) Urine Nitrite POS (NEG) Urine Bilirubin NEG (NEG) Urine Urobilinogen LESS THAN 2.0 MG/DL (LESS THAN 2.0) Urine Leukocyte Esterase LARGE (NEG) Urine RBC 4 /hpf (0-3) Urine WBC 82 /hpf (0-5) Urine WBC Clumps FEW (NONE) Urine Squamous Epithelial <1 /hpf (0-5) Cells Urine Amorphous Sediment RARE Urine Bacteria MANY /hpf (NONE) Urine Mucus FEW /lpf (OCC) Microscopic Urinalysis Comment CATH-CULTURE IND Test 09/05/16 09/05/16 09/06/16 09/06/16 10:35 14:38 08:20 08:28 White Blood Count 11.4 TH/MM3 12.2 TH/MM3 (4.0-11.0) (4.0-11.0) Red Blood Count 3.40 MIL/MM3 3.24 MIL/MM3 (4.00-5.30) (4.00-5.30) Hemoglobin 9.9 GM/DL 9.4 GM/DL (11.6-15.3) (11.6-15.3) Hematocrit 30.4 % 29.1 % (35.0-46.0) (35.0-46.0) Mean Corpuscular Volume 89.3 FL 90.0 FL (80.0-100.0) (80.0-100.0) Mean Corpuscular Hemoglobin 29.2 PG 29.2 PG (27.0-34.0) (27.0-34.0) Mean Corpuscular Hemoglobin 32.7 % 32.4 % Concent (32.0-36.0) (32.0-36.0) Red Cell Distribution Width 15.5 % 15.8 % (11.6-17.2) (11.6-17.2) Platelet Count 373 TH/MM3 291 TH/MM3 (150-450) (150-450) Mean Platelet Volume 7.7 FL 7.7 FL (7.0-11.0) (7.0-11.0) Neutrophils (%) (Auto) 61.1 % 53.7 % (16.0-70.0) (16.0-70.0) Lymphocytes (%) (Auto) 18.1 % 21.0 % (9.0-44.0) (9.0-44.0) Monocytes (%) (Auto) 12.0 % 15.9 % (0.0-8.0) (0.0-8.0) Eosinophils (%) (Auto) 7.7 % (0.0-4.0) 8.3 % (0.0-4.0) Basophils (%) (Auto) 1.1 % (0.0-2.0) 1.1 % (0.0-2.0) Neutrophils # (Auto) 7.0 TH/MM3 6.5 TH/MM3 (1.8-7.7) (1.8-7.7) Lymphocytes # (Auto) 2.1 TH/MM3 2.6 TH/MM3 (1.0-4.8) (1.0-4.8) Monocytes # (Auto) 1.4 TH/MM3 1.9 TH/MM3 (0-0.9) (0-0.9) Eosinophils # (Auto) 0.9 TH/MM3 1.0 TH/MM3 (0-0.4) (0-0.4) Basophils # (Auto) 0.1 TH/MM3 0.1 TH/MM3 (0-0.2) (0-0.2) CBC Comment DIFF FINAL DIFF FINAL Differential Comment Blood Gas Puncture Site RT RADIAL Blood Gas Patient Temperature 98.6 Blood Gas HCO3 29 mmol/L (22-26) Blood Gas Base Excess 5.0 mmol/L (-2-2) Blood Gas Oxygen Saturation 95 % (90-100) Arterial Blood pH 7.49 (7.380-7.420) Arterial Blood Partial 38 mmHg (38-42) Pressure CO2 Arterial Blood Partial 78 mmHG Pressure O2 (61-120) Arterial Blood Oxygen Content 14.3 Vol % (12.0-20.0) Arterial Blood 1.4 % (0-4) Carboxyhemoglobin Arterial Blood Methemoglobin 0.5 % (0-2) Blood Gas Hemoglobin 10.7 G/DL (12.0-16.0) Oxygen Delivery Device ROOM AIR Blood Gas Inspired Oxygen 21 % Sodium Level 143 MEQ/L (136-145) Potassium Level 3.5 MEQ/L (3.5-5.1) Chloride Level 108 MEQ/L (98-107) Carbon Dioxide Level 30.9 MEQ/L (21.0-32.0) Anion Gap 4 MEQ/L (5-15) Blood Urea Nitrogen 6 MG/DL (7-18) Creatinine 0.55 MG/DL (0.50-1.00) Estimat Glomerular Filtration 106 ML/MIN Rate (>89) Random Glucose 73 MG/DL (74-106) Calcium Level 8.3 MG/DL (8.5-10.1) Test 09/06/16 10:35 Prothrombin Time 12.7 SEC (9.8-11.6) Prothromb Time International 1.1 RATIO Ratio Result Diagram: 09/06/16 0828 09/06/16 0820 Microbiology Microbiology Date/Time Procedure Status Source Growth 09/04/16 15:45 Urine Culture - Final Complete Urine Catheterized Urine 50-100,000 CFU/ML MIXED ALLA... 09/05/16 11:20 Aerobic Blood Culture - Preliminary Resulted Blood Peripheral NO GROWTH IN 1 DAY 09/05/16 11:20 Anaerobic Blood Culture - Preliminary Resulted Blood Peripheral NO GROWTH IN 1 DAY 09/05/16 11:32 Aerobic Blood Culture - Preliminary Resulted Blood Peripheral NO GROWTH IN 1 DAY 09/05/16 11:32 Anaerobic Blood Culture - Preliminary Resulted Blood Peripheral NO GROWTH IN 1 DAY 09/05/16 22:20 Urine Culture - Preliminary Resulted Urine Catheterized Urine IMMATURE GROWTH - REINCUBATE Procedures PEG tube placement 09/06/2016, ERCP, dilatation Assessment and Plan Disease Oriented Problem List: (1) BipolarII (2) Alzheimer disease (3) Hypokalemia (4) UTI (urinary tract infection) (5) Malnutrition (6) Sacral decubitus ulcer Symptom Scale: (1) Agitation 0-10 Scale: Unable to quantify Pertinent Non-Medical Issues Psychosocial: Spiritual: Legal: Ethical issues impacting care: Important Contacts Luis Fernando Corona [phone] or [phone] Prognosis 85-year-old with end-stage dementia, has history of aspiration pneumonia. Eating very poorly. Even with PEG tube placement patient is a candidate for hospice if goals of care with family members are for comfort measures only. Code Status: Full Code Plan == CODE STATUS-full code == Capacity-patient has no capacity == Healthcare surrogate-son Luis Fernando Corona == Goals of care: I went through the natural progression of dementia, and that she is at her end-stage. Discuss the challenges that days ahead of her. I feel clinically, despite PEG tube placement, she likely will not be able to get a nutritional/ functional rebound that he is hoping for. Discussed pt's agitation including pulling out PEG tube. I also reviewed even with the PEG tube, she may continue to have UTIs which she is to predispose to, have malfunction of the PEG tube, infection etc. Patient's son, listened but wanted " to try and do everything he can for his mother." He endorses a full code. Pt had peg tube placed 09/06/2016. 09/07/2016- Called son, updated patient, included respiratory distress s/p procedure per GI note. Review pt's alzheimers and offered hopsice. Goals remains aggressive, not ready for transition to comfort measures only. Is a full code. Goals are aggressive. I do not foresee goals of care changing soon. Pt previously was in hospice but son revoked hospice after a few days. == Agitation-is a result of patient's bipolar and dementia. No new med rec == Palliative care will follow prn. Time Spent Total Floor Time (mins): 35 Face to Face Time (mins): 20 Attestation To help prompt me to consider important information that might be impacting today's encounter and assessment, information from prior notes written by myself or my colleagues may have been "brought forward" into today's note. My signature on this note, however, is an attestation that I personally performed the exam, history, and/or decision-making noted today, and, unless otherwise indicated, the interactions with patient, family, and staff as well as the review of records all occurred today. I also attest that the listed assessment and stated plan reflect my best clinical judgment today based on the combination of historical information, prior notes, and today's exam/ interactions. When time spent is documented, it refers only to time spent today by the signer, or if indicated, combined time spent today by collaborating physician/nurse practitioner. Cortes Quinteros MD Sep 07, 2016 10:50
--- NOTE | 2016-09-07 11:23 | HHI.PR ---
Subjective Remarks Follow-up for dementia with possible UTI. The patient awakens to voice. She does not respond to any questions. She does allow me to auscultate her heart and lungs, however when I try to examine her abdomen she holds her covers tightly to her and screams "no!" and does not allow me to examine her abdomen. She also screams no when I examine her lower extremities. Discussed with GI, okay to start tube feeding. Not in restraints. Objective Vitals Vital Signs Date Time Temp Pulse Resp B/P Pulse Ox O2 Delivery O2 Flow Rate FiO2 09/07/16 10:53 72 09/07/16 08:13 97.4 62 18 155/78 93 09/07/16 07:48 93 21 09/07/16 05:13 98.5 77 18 131/72 97 09/07/16 00:30 69 09/06/16 23:40 98.8 68 16 122/62 94 09/06/16 20:01 98.8 68 16 128/68 94 09/06/16 19:35 93 Nasal Cannula 3.00 09/06/16 19:00 82 16 134/59 99 Nasal Cannula 2 09/06/16 18:45 81 16 123/64 99 Nasal Cannula 2 09/06/16 18:30 79 16 132/62 100 Nasal Cannula 2 09/06/16 18:20 98.7 74 16 112/68 100 Nasal Cannula 2 09/06/16 16:46 97.0 88 20 131/62 96 09/06/16 15:45 70 20 123/75 100 09/06/16 14:00 96 09/06/16 11:18 88 20 131/62 80 I/O 09/06/16 09/06/16 09/06/16 09/07/16 09/07/16 09/07/16 07:00 15:00 23:00 07:00 15:00 23:00 Intake Total 1400 ml Output Total 250 ml 1250 ml Balance -250 ml 150 ml IV Total 1200 ml Other 200 ml Output Urine Total 250 ml 1250 ml Estimated Blood Loss 0 ml Result Diagram: 09/06/16 0828 09/06/1620 Imaging Last Impressions Upper Extremity Ultrasound 09/05/16 0000 Signed Impressions: Service Date/Time: Monday, September 05, 2016 10:33 - CONCLUSION: Nonocclusive thrombus in the proximal brachial vein. Deep venous system of the left upper extremity is otherwise patent. Russel Santamaria MD Lower Extremity Ultrasound 09/05/16 0000 Signed Impressions: Service Date/Time: Monday, September 05, 2016 10:58 - CONCLUSION: 1. No DVT seen on the current study. 2. Subcutaneous edema involving both lower legs. Ang Lopez Jr., MD Objective Remarks GENERAL: Well-developed well-nourished. In no acute distress. SKIN: Warm and dry. No lesions noted on limited skin exam. HEENT: Normocephalic. Mucous membranes appear a bit dry. CARDIOVASCULAR: Regular rate and rhythm. No murmur appreciated. RESPIRATORY: No accessory muscle use. Clear to auscultation. Breath sounds equal bilaterally. GASTROINTESTINAL: Unable to assess due to refusal. MUSCULOSKELETAL: No obvious deformities. No clubbing or cyanosis. 1+ edema. NEUROLOGICAL: Awake and alert. Moves upper and lower extremities spontaneously. Normal speech. PSYCHIATRIC: Demented with guarded mood and affect; insight and judgment poor. Date of Insertion: September 05, 2016 A/P Problem List: (1) UTI (urinary tract infection) ICD Code: N39.0 Status: Acute (2) Hypokalemia ICD Code: E87.6 Status: Resolved (3) Alzheimer disease ICD Code: G30.9 Status: Chronic Assessment and Plan 85-year-old female with end-stage dementia who is bedbound, admitted with urinary tract infection, encephalopathy, and hypokalemia. Urinary tract infection -Cont empiric IV Rocephin -Follow urine culture, 1st culture mixed jaky, 2nd culture from [place] pending Leukocytosis, suspected related to UTI or bacteremia -Blood cultures with NGTD Failure to thrive, suspected related to uti and dementia -Swallow eval per speech therapy, unable to complete due to patients mental status -Patient's straddle truck operator consulted, PEG tube placed by Dr. Persaud 09/07 -Cont IVF until tube feeding started -Dietitian consulted, start tube feedings per dietitian recommendations. -Watch for refeeding syndrome Metabolic encephalopathy Secondary to infection vs dementia with agitation -Antibiotics as above -Supportive care and Monitor -Resumed Risperdal LUE swelling, r/o DVT, history of bilateral LE DVT in 05/2016, reportedly was on heparin outpatient -Doppler US LUE shows nonocclusice thrombus in the proximal brachial vein, no dvt. BLE negative for dvt Chronic medications include hypothyroidism, CAD, CVA, HTN, HLD, PUD, mood disorder -Resume home medications by tube as indicated End-stage dementia -Supportive care -Consulted palliative care, family's goals remain aggressive Hypokalemia -Replaced and now within normal limits. Resolved. DVT prophylaxis: Lovenox Discharge Planning Discharge planning back to SNF if patient is tolerating tube feedings. Problem Qualifiers (1) UTI (urinary tract infection): Qualified Code: N39.0 - Urinary tract infection without hematuria, site unspecified Jose Reeder Sep 07, 2016 11:23
[2016-09-07] MEDS: ENOXAPARIN SODIUM 40 MG/0.4 ML SYRINGE SQ SCH (11:34)
[2016-09-07] MEDS ORDERED: NITROFURANTOIN MONOHYD MACROCR 100 MG CAP PO SCH (18:00)
[2016-09-07] MEDS: METOPROLOL TARTRATE 50 MG TAB PEG SCH (20:56)
[2016-09-07] MEDS: DIVALPROEX SODIUM SPRINKLES 125 MG CAP PEG SCH (20:56)
[2016-09-07] MEDS ORDERED: PRAVASTATIN SOD 10 MG TAB PEG SCH (21:00)
[2016-09-07] MEDS ORDERED: MIRTAZAPINE 15 MG TAB PEG SCH (21:00)
[2016-09-08 00:16] VITALS: BP 137/62; PULSE 82; RESP 20; TEMP 97.5; O2SAT 93
[2016-09-08] MEDS ORDERED: LEVOTHYROXINE SODIUM 100 MCG TAB PEG SCH (06:00)
[2016-09-08] MEDS ORDERED: LEVOTHYROXINE SODIUM 88 MCG TAB PEG SCH (06:00)
[2016-09-08 07:29] LABS: AUTOMATED NEUTROPHIL # 9.1 TH/MM3 (1.8-7.7); BASOPHIL % 0.2 % (0.0-2.0); EOSINOPHIL # 0.3 TH/MM3 (0-0.4); EOSINOPHIL % 2.6 % (0.0-4.0); HEMATOCRIT 27.5 % (35.0-46.0); HEMO FLAGS DIFF FINAL; LYMPHOCYTE # 1.5 TH/MM3 (1.0-4.8); MEAN CELL VOLUME 89.2 FL (80.0-100.0); MEAN CORPUSCULAR HEMOGLOBIN 29.6 PG (27.0-34.0); MEAN CORPUSCULAR HGB CONC 33.2 % (32.0-36.0); MONO % 14.4 % (0.0-8.0); NEUT % 70.8 % (16.0-70.0); PLATELET COUNT 285 TH/MM3 (150-450); RED BLOOD COUNT 3.08 MIL/MM3 (4.00-5.30); RED CELL DISTRIBUTION WIDTH 15.5 % (11.6-17.2); WHITE BLOOD COUNT 12.8 TH/MM3 (4.0-11.0)
[2016-09-08 07:48] LABS: BICARBONATE 29.8 MEQ/L (21.0-32.0); POTASSIUM 3.4 MEQ/L (3.5-5.1)
[2016-09-08 08:15] VITALS: BP 178/75; PULSE 72; RESP 20; TEMP 98.2; O2SAT 94
[2016-09-08] MEDS ORDERED: METO-309 PEG (08:17)
[2016-09-08] MEDS ORDERED: PREV30TA3 PEG (08:17)
[2016-09-08] MEDS ORDERED: THERTAB15 PEG (08:17)
[2016-09-08] MEDS ORDERED: PRAV10TA PEG (08:17)
[2016-09-08] MEDS ORDERED: SPIR25 PEG (08:17)
[2016-09-08] MEDS ORDERED: SYNT88TA PEG (08:17)
[2016-09-08] MEDS ORDERED: DIVA125C PEG (08:17)
[2016-09-08] MEDS ORDERED: MIRTA15 PEG (08:17)
[2016-09-08] MEDS ORDERED: LEVO.1 PEG (08:17)
[2016-09-08] MEDS ORDERED: AMOX250C3 PEG (08:17)
[2016-09-08] MEDS ORDERED: PLAV75TA29 PEG (08:17)
--- NOTE | 2016-09-08 08:26 | HHI.PR ---
Subjective Remarks Follow-up for dementia and malnutrition. Discussed with RN, in no acute events overnight, tolerating tube feeding, out of restraints for 2 days. The patient awakens to voice. The patient states that she is doing well today. When asked if she has any complaints, she states that she cut herself shaving and points to her right cheek, although there is no signs of shaving or cut. She does not allow me to auscultate her heart and lungs, but she does vomiting to examine her abdomen today. Objective Vitals Vital Signs Date Time Temp Pulse Resp B/P Pulse Ox O2 Delivery O2 Flow Rate FiO2 09/08/16 00:16 97.5 82 20 137/62 93 09/07/16 19:05 93 20 114/60 90 09/07/16 16:04 98.6 82 18 150/55 95 09/07/16 10:53 72 Result Diagram: 09/08/16 0705 09/08/16 0705 Imaging Last Impressions Upper Extremity Ultrasound 09/05/16 0000 Signed Impressions: Service Date/Time: Monday, September 05, 2016 10:33 - CONCLUSION: Nonocclusive thrombus in the proximal brachial vein. Deep venous system of the left upper extremity is otherwise patent. Russel Santamaria MD Lower Extremity Ultrasound 09/05/16 0000 Signed Impressions: Service Date/Time: Monday, September 05, 2016 10:58 - CONCLUSION: 1. No DVT seen on the current study. 2. Subcutaneous edema involving both lower legs. Ang Lopez Jr., MD Objective Remarks GENERAL: Well-developed well-nourished. In no acute distress. SKIN: Warm and dry. No lesions noted on limited skin exam. HEENT: Normocephalic. Mucous membranes appear a bit dry. CARDIOVASCULAR: Unable to assess today due to refusal RESPIRATORY: Unable to assess today due to refusal GASTROINTESTINAL: Abdominal binder in place. Soft, nontender. MUSCULOSKELETAL: No obvious deformities. No clubbing or cyanosis. 1+ edema. NEUROLOGICAL: Awake and alert. Moves upper and lower extremities spontaneously. Normal speech. PSYCHIATRIC: Demented with guarded mood and affect; insight and judgment poor. Date of Insertion: September 05, 2016 A/P Problem List: (1) UTI (urinary tract infection) ICD Code: N39.0 Status: Acute (2) Hypokalemia ICD Code: E87.6 Status: Resolved (3) Alzheimer disease ICD Code: G30.9 Status: Chronic Assessment and Plan 85-year-old female with end-stage dementia who is bedbound, admitted with urinary tract infection, encephalopathy, and hypokalemia. 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 Pesraud 09/07 -Dietitian consulted, appreciate to tube feeding recommendations. -Tolerating tube feeds Metabolic encephalopathy Secondary to infection vs dementia with agitation -Antibiotics as above -Supportive care and Monitor -Resumed Risperdal LUE swelling, r/o DVT, history of bilateral LE DVT in 05/2016, reportedly was on heparin outpatient -Doppler US LUE shows nonocclusive thrombus in the proximal brachial vein, no dvt. BLE negative for dvt Chronic medications include hypothyroidism, CAD, CVA, HTN, HLD, PUD, mood disorder -Resumed home medications by tube as indicated End-stage dementia -Supportive care -Consulted palliative care, family's goals remain aggressive Hypokalemia -3.4 today, replace by tube. Replace phosphorus as well. DVT prophylaxis: Lovenox Discharge Planning Discharge planning back to SNF. Problem Qualifiers (1) UTI (urinary tract infection): Qualified Code: N39.0 - Urinary tract infection without hematuria, site unspecified Jose Reeder Sep 08, 2016 08:26
[2016-09-08] MEDS: SODIUM CHLORIDE 0.9% FLUSH 10 ML FLUSH IV FLUSH SCH (09:00)
[2016-09-08] MEDS ORDERED: POTASSIUM PHOSPHATE MONOBASIC 500 MG TAB PEG ONE (09:00)
[2016-09-08] MEDS ORDERED: LANSOPRAZOLE SOLUTAB 30 MG TAB NG SCH (09:00)
[2016-09-08] MEDS ORDERED: CLOPIDOGREL 75 MG TAB PEG SCH (09:00)
[2016-09-08] MEDS ORDERED: SPIRONOLACTONE 25 MG TAB PEG SCH (09:00)
[2016-09-08] MEDS ORDERED: AMOXICILLIN (TRIHYDRATE) 250 MG CAP PEG SCH (09:00)
[2016-09-08] MEDS ORDERED: MULTIVITAMIN TAB PEG SCH (09:00)
[2016-09-08] MEDS ORDERED: POTASSIUM CHLORIDE 20 MEQ PWD PACKET PEG ONE (09:00)
[2016-09-08] MEDS: METOPROLOL TARTRATE 50 MG TAB PEG SCH (09:09)
[2016-09-08] MEDS: DIVALPROEX SODIUM SPRINKLES 125 MG CAP PEG SCH (09:09)
[2016-09-08] MEDS: LACTIC ACID (AMMONIUM LACTATE) 12% LOTION 225 GM BTL TOPICAL SCH (09:09)
[2016-09-08 11:45] VITALS: BP 138/62; PULSE 80; TEMP 97.7; O2SAT 88
--- NOTE | 2016-09-08 11:56 | HHI.DS ---
Discharge Summary Admission Date September 04, 2016 at 16:49 Discharge Date: Sep 08, 2016 Admitting Diagnosis Hypokalemia, UTI (1) UTI (urinary tract infection) ICD Code: N39.0 Diagnosis: Principal (2) Hypokalemia ICD Code: E87.6 Diagnosis: Secondary (3) Alzheimer disease ICD Code: G30.9 Diagnosis: Principal Procedures PEG tube placement 09/06/16 Brief History - From Admission Mrs. Corona is an 85-year-old female. 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 She is not verbal and has no ability to ambulate. Recurrent medical problems include recurrent hypernatremia and recurrent urinary tract infections. She was sent here today from her [place] [facility] facility secondary to blood in her diaper. She has a chronic stage IV decubitus ulcer and this may be the source of blood as rectal testing in the ER showed no blood. Lately she has been more confused and eating poorly per her son. The etiology of this might be related to a urinary tract infection discovered in her emergency room. She also was found to be hypokalemic. She is not exhibiting any signs of discomfort. She does have tenderness at the site of the decubitus ulcer. History is obtained from the son as the patient cannot provide any history. No other complaints at this time. CBC/BMP: 09/08/16 0705 09/08/16 0705 Significant Findings Laboratory Tests Test 09/05/16 09/06/16 09/06/16 09/06/16 14:38 08:20 08:28 10:35 Blood Gas HCO3 29 mmol/L (22-26) Blood Gas Base Excess 5.0 mmol/L (-2-2) Arterial Blood pH 7.49 (7.380-7.420) Blood Gas Hemoglobin 10.7 G/DL (12.0-16.0) Chloride Level 108 MEQ/L (98-107) Anion Gap 4 MEQ/L (5-15) Blood Urea Nitrogen 6 MG/DL (7-18) Random Glucose 73 MG/DL (74-106) Calcium Level 8.3 MG/DL (8.5-10.1) White Blood Count 12.2 TH/MM3 (4.0-11.0) Red Blood Count 3.24 MIL/MM3 (4.00-5.30) Hemoglobin 9.4 GM/DL (11.6-15.3) Hematocrit 29.1 % (35.0-46.0) Monocytes (%) (Auto) 15.9 % (0.0-8.0) Eosinophils (%) (Auto) 8.3 % (0.0-4.0) Monocytes # (Auto) 1.9 TH/MM3 (0-0.9) Eosinophils # (Auto) 1.0 TH/MM3 (0-0.4) Prothrombin Time 12.7 SEC (9.8-11.6) Test 09/08/16 07:05 White Blood Count 12.8 TH/MM3 (4.0-11.0) Red Blood Count 3.08 MIL/MM3 (4.00-5.30) Hemoglobin 9.1 GM/DL (11.6-15.3) Hematocrit 27.5 % (35.0-46.0) Neutrophils (%) (Auto) 70.8 % (16.0-70.0) Monocytes (%) (Auto) 14.4 % (0.0-8.0) Neutrophils # (Auto) 9.1 TH/MM3 (1.8-7.7) Monocytes # (Auto) 1.8 TH/MM3 (0-0.9) Potassium Level 3.4 MEQ/L (3.5-5.1) Blood Urea Nitrogen 6 MG/DL (7-18) Random Glucose 135 MG/DL (74-106) Calcium Level 7.9 MG/DL (8.5-10.1) Phosphorus Level 2.3 MG/DL (2.5-4.9) Albumin 1.3 GM/DL (3.4-5.0) Imaging Last Impressions Upper Extremity Ultrasound 09/05/16 0000 Signed Impressions: Service Date/Time: Monday, September 05, 2016 10:33 - CONCLUSION: Nonocclusive thrombus in the proximal brachial vein. Deep venous system of the left upper extremity is otherwise patent. Russel Santamaria MD Lower Extremity Ultrasound 09/05/16 0000 Signed Impressions: Service Date/Time: Monday, September 05, 2016 10:58 - CONCLUSION: 1. No DVT seen on the current study. 2. Subcutaneous edema involving both lower legs. Ang Lopez Jr., MD PE at Discharge GENERAL: Well-developed well-nourished. In no acute distress. SKIN: Warm and dry. No lesions noted on limited skin exam. HEENT: Normocephalic. Mucous membranes appear a bit dry. CARDIOVASCULAR: Unable to assess today due to refusal RESPIRATORY: Unable to assess today due to refusal GASTROINTESTINAL: Abdominal binder in place. Soft, nontender. MUSCULOSKELETAL: No obvious deformities. No clubbing or cyanosis. 1+ edema. NEUROLOGICAL: Awake and alert. Moves upper and lower extremities spontaneously. Normal speech. PSYCHIATRIC: Demented with guarded mood and affect; insight and judgment poor. Hospital Course 85-year-old female with end-stage dementia who is bedbound, admitted with urinary tract infection, encephalopathy, and hypokalemia. 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 Persaud 09/07 -Dietitian consulted, appreciate to tube feeding recommendations. -Tolerating tube feeds LUE swelling, r/o DVT, history of bilateral LE DVT in 05/2016, reportedly was on heparin outpatient -Doppler US LUE shows nonocclusive thrombus in the proximal brachial vein, no dvt. BLE negative for dvt Chronic medications include hypothyroidism, CAD, CVA, HTN, HLD, PUD, mood disorder -Resumed home medications by tube as indicated End-stage dementia -Supportive care -Consulted palliative care, family's goals remain aggressive Pt Condition on Discharge: Stable Discharge Disposition: Discharge to SNF Discharge Time: > 30 minutes Discharge Instructions DIET: Follow Instructions for: On Tube Feeding Additional Diet Instructions: Jevity 1.5 At 55 mL's per hour Hold tube feeding one hour before and after levothyroxine administration Activities you can perform: Regular-No Restrictions Follow up Referrals: Gastroenterology - 2 Weeks with Chun Perkins MD PCP Follow-up - 2-3 Days New Medications: Amoxicillin (Amoxicillin) 250 Mg Cap 250 MG PEG TID UTI #15 CAP Clopidogrel (Plavix) 75 Mg Tab 75 MG PEG DAILY Blood Clot Prevention #30 TAB Divalproex Sprinkles (Depakote Sprinkles) 125 mg Cap 250 MG PEG BID Seizure Control #120 CAP Lansoprazole ODT (Prevacid Solutab ODT) 30 Mg Tab 30 MG PEG DAILY Reflux #30 TAB Levothyroxine (Synthroid) 88 Mcg Tab 88 MCG PEG DAILY@0600 Thyroid #30 TAB Levothyroxine (Synthroid) 100 Mcg Tab 100 MCG PEG DAILY@0600 Thyroid #30 TAB Metoprolol Tartrate (Lopressor) 50 Mg Tab 50 MG PEG BID Blood Pressure Management #60 TAB Mirtazapine (Mirtazapine) 15 Mg Tab 15 MG PEG HS mood #30 TAB Multiple Vitamin (Thera/Beta-Carotene) 1 Tab Tab 1 TAB PEG DAILY Nutritional Supplement #30 TAB Pravastatin (Pravastatin) 10 Mg Tab 10 MG PEG HS Cholesterol Management #30 TAB Spironolactone (Aldactone) 25 Mg Tab 25 MG PEG DAILY Blood Pressure Management #30 TAB Continued Medications: Albuterol Neb (Albuterol Neb) 0.63 Mg/3 Ml Neb 0.63 MG NEB Q6HR NEB PRN SHORTNESS OF BREATH #25 Ref [address] (Aspirin Adult Low Strength) 81 Mg Tabdr 81 MG PO DAILY TAB Bisacodyl Supp (Dulcolax Supp) 10 Mg Supp 10 MG RECTAL DAILY PRN IF NO RESULTS FROM MILK OF MAG Ref 0 SUPP Dextrose (Dextrose 5%) 5 % Inj IV Q8HR IV TO RUN AT 90ML/HR EVERY SHIFT DEHYDRATION Lactic Acid (Ammonium Lactate) (Ammonium Lactate) 12% Lotn 1 APPLIC TOPICAL BID Apply to whole body every day and evening shift #225 Ref 0 ML Sodium Phosphates (Enema Disposable) 1 Karoline Karoline 1 APPLIC RECTAL DAILY PRN IF NO RESULTS FROM DULCOLAX Discontinued Medications: Ascorbic Acid (Ascorbic Acid) 500 Mg Tab 500 MG PO DAILY TAB Calcium Carbonate-Cholecalciferol (Calcium 600 with Vitamin D) 600-400 mg-Unit Tab 1 TAB PO DAILY Calcium Supplement Ref 0 TAB Clopidogrel (Clopidogrel) 75 Mg Tab 75 MG PO DAILY Blood Clot Prevention #30 Ref [address] (D[address]ex [address]) 250 Mg Tabdr 250 MG PO BID Control Seizures #60 Ref 0 TAB Lactulose Liq (Lactulose Liq) 10 Gm/15 Ml Soln 30 ML PO BID Prevent Constipation #60 ML Levothyroxine (Synthroid) 100 Mcg Tab 100 MCG PO DAILY@0600 Thyroid Supplement #30 TAB Levothyroxine (Synthroid) 88 Mcg Tab 88 MCG PO DAILY@0600 Thyroid Supplement #30 TAB Magnesium Citrate Liq (Citroma Liq) 300 Ml Liq 300 ML PO IN THE AM PRN IF NO RESULTS FROM ENEMA #1 Ref 0 BOTTLE Magnesium Hydroxide Liq (Milk of Magnberna Liq) 400 Mg/5 Ml Susp 30 ML PO HS PRN IF NO BM IN 3 DAYS #30 Ref 0 ML Metoprolol Tartrate (Metoprolol Tartrate) 50 Mg Tab 50 MG PO BID HTN #60 Ref 0 TAB Mirtazapine (Remeron) 15 Mg Tab 15 MG PO HS Depression Control #30 Ref 0 TAB Multiple Vitamin (Multi-Vitamins) 1 Tab Tab 1 TAB PO DAILY Omeprazole (Omeprazole) 20 Mg Tab 20 MG PO DAILY #30 Ref 0 TAB Pravastatin (Pravastatin) 10 Mg Tab 10 MG PO HS Cholesterol Management #30 Ref 0 TAB Sennosides-Docusate Sodium (Senna Plus 8.6-50 mg) 1 Tab Tab 2 TAB PO BID Prevent Constipation #60 TAB Spironolactone (Aldactone) 25 Mg Tab 25 MG PO DAILY EDEMA #30 Ref 0 TAB Zinc Sulfate (Zinc Sulfate) 220 Mg Tab 220 MG PO DAILY Nutritional Supplement Ref 0 TAB Jose Reeder Sep 08, 2016 11:56
== END 2016-09-08 12:32 ==
LOC: NEPE 11:29 → NEDA 16:49 → NEPGCP 19:57
PROVIDERS: ADMIT Hospitalist; ATTEND Hospitalist
DX: K22.2 Esophageal obstruction (principal); R13.10 Dysphagia, unspecified; K21.9 Gastro-esophageal reflux disease without esophagitis; L89.94 Pressure ulcer of unspecified site, stage 4; E43 Unspecified severe protein-calorie malnutrition; N39.0 Urinary tract infection, site not specified; F02.80 Dementia in other diseases classified elsewhere, unspecified severity, without behavioral disturbance, psychotic disturbance, mood disturbance, and anxiety; G30.9 Alzheimer's disease, unspecified; B96.20 Unspecified Escherichia coli [E. coli] as the cause of diseases classified elsewhere; I12.9 Hypertensive chronic kidney disease with stage 1 through stage 4 chronic kidney disease, or unspecified chronic kidney disease; N18.9 Chronic kidney disease, unspecified; I25.10 Atherosclerotic heart disease of native coronary artery without angina pectoris; Z74.01 Bed confinement status; E03.9 Hypothyroidism, unspecified; E78.00 Pure hypercholesterolemia, unspecified; E87.6 Hypokalemia; R60.0 Localized edema; Z86.73 Personal history of transient ischemic attack (TIA), and cerebral infarction without residual deficits; Z86.718 Personal history of other venous thrombosis and embolism; Z87.440 Personal history of urinary (tract) infections; Z16.11 Resistance to penicillins
CPT/HCPCS: 00740; 36600; 43246; 43248; 76937; 80048; 80069; 81001; 82805; 83735; 84132; 85025; 85610; 87040; 87077; 87086; 87186; 92610; 93970; 93971; 96365; 96366; 97162; 99285; C1769; G0378; G8987; G8988; G8996; G8997; G8998; J0696; J1650; J3475; J3480; J3486; J7120

== ENCOUNTER 2016-09-19 22:11 | Emergency (ER) | payer MEDICARE, OTHER ==
[~2016-09-19] VITALS: Ht 175.3 cm; Wt 74.0 kg
[~2016-09-19 22:11] MED LIST changes: -AMLO5TAB2 PO; +AMMO12LO TOPICAL; +AMOX250C3 PEG; -AMOX875T2 PO; +ASPI1TAB91 PO; -CLOP75TA PO; -COLA100C3 PO; -DAKI0.12 TOPICAL; +DIVA125C PEG; -DIVA250T PO; +DULC10SU3 RECTAL; +ENEMENE5 RECTAL; -ENOX80P SQ; -FURO1TAB62 PO; -LACT10SO PO; -LEVA500T PO; +LEVO.1 PEG; -LEVO.1 PO; -LORA-392 PO; -MEGE40SU PO; +METO-309 PEG; -METO25TA3 PO; +MIRTA15 PEG; -MULT-135 PO; -OMEP20TA PO; +PLAV75TA29 PEG; -POTA10CA PO; +PRAV10TA PEG; -PRAV10TA PO; +PREV30TA3 PEG; -REME15TA PO; -SENN1TAB PO; +SPIR25 PEG; +SYNT88TA PEG; -SYNT88TA PO; +THERTAB15 PEG; -TRAZ50TA12 PO; -ZINC220T PO; -[UNRECOGNIZED DRUG - CODE] CHEW; +[UNRECOGNIZED DRUG - CODE] IV
[2016-09-19 22:29] VITALS: BP 145/91; PULSE 89; RESP 16; TEMP 97.8; O2SAT 96
--- NOTE | 2016-09-19 22:34 | PD ---
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 Per EMS report the patient's son saw the patient pulled her G-tube out while at her long term facility. The patient is unable to provide any history. She is slightly combative and therefore is placed in soft restraints. PFSH Past Medical History Arthritis: Yes Asthma: No Autoimmune Disease: No Blood Disorders: No Anxiety: No Depression: No Heart Rhythm Problems: No Cancer: No Cardiovascular Problems: Yes (angina) High Cholesterol: No Chemotherapy: No Chest Pain: No Congestive Heart Failure: No COPD: No Cerebrovascular Accident: Yes Diabetes: No Diminished Hearing: Yes (L EAR [place]) Endocrine: No Gastrointestinal Disorders: Yes GERD: Yes Glaucoma: No Genitourinary: Yes (woods) Headaches: No Hepatitis: No Hiatal Hernia: Yes (STRETCHED ESOPHAGUS HIATAL HERNIA) Hypertension: Yes Immune Disorder: No Kidney Stones: No Musculoskeletal: Yes (left leg bone problems ) Neurologic: Yes (contracted) Psychiatric: No Reproductive: No Respiratory: No Immunizations Current: No Myocardial Infarction: No Radiation Therapy: No Renal Failure: No Seizures: No Sickle Cell Disease: No Sleep Apnea: No Thyroid Disease: No Ulcer: No PNEUMOCCOCAL Vaccine (Year): 3 ?: Not Menopausal: Yes Past Surgical History Abdominal Surgery: Yes (HERNIA REPAIR) AICD: No Appendectomy: Yes Body Medical Devices: WALKER Cardiac Surgery: No Cholecystectomy: Yes Endocrine Surgery: Yes (THYROID (1952)) Eye Surgery: Yes (CATARACTS) Gynecologic Surgery: Yes (HYSTERECTOMY) Hysterectomy: Yes Neurologic Surgery: No Pacemaker: No Thoracic Surgery: No Other Surgery: Yes (PARTIAL THROIDISM) Social History Alcohol Use: Yes (OCCAS) Tobacco Use: No Substance Use: No Allergies-Medications (Allergen,Severity, Reaction): Coded Allergies: Celecoxib (Verified Allergy, Unknown, 09/04/16) Haloperidol (Verified Allergy, Unknown, 09/04/16) Risperidone (Verified Allergy, Unknown, 09/04/16) Sulfa (Verified Allergy, Unknown, 09/04/16) Aspirin (Verified Adverse Reaction, Intermediate, NOSE BLEEDS, 09/04/16) Thorazine (Verified Adverse Reaction, Intermediate, CRAMPS, 09/04/16) *MDRO Multi-Drug Resistant Organism (Verified Adverse Reaction, Unknown, ESBL, 09/10/16) ESBL (urine) - 09/05/16 Reported Meds & Prescriptions Reported Meds & Active Scripts Active Depakote Sprinkles (Divalproex Sodium) 125 mg Cap 250 Mg PEG BID Aldactone (Spironolactone) 25 Mg Tab 25 Mg PEG DAILY Pravastatin 10 Mg Tab 10 Mg PEG HS Thera/Beta-Carotene (Multiple Vitamin) 1 Tab Tab 1 Tab PEG DAILY Mirtazapine 15 Mg Tab 15 Mg PEG HS Lopressor (Metoprolol Tartrate) 50 Mg Tab 50 Mg PEG BID Synthroid (Levothyroxine Sodium) 100 Mcg Tab 100 Mcg PEG DAILY@0600 Synthroid (Levothyroxine Sodium) 88 Mcg Tab 88 Mcg PEG DAILY@0600 Prevacid Solutab ODT (Lansoprazole) 30 Mg Tab 30 Mg PEG DAILY Plavix (Clopidogrel Bisulfate) 75 Mg Tab 75 Mg PEG DAILY Reported Ativan (Lorazepam) 0.5 Mg Tab 0.5 Mg PO Q6H PRN Ammonium Lactate (Lactic Acid (Ammonium Lactate)) 12% Lotn 1 Applic TOPICAL BID Apply to whole body every day and evening shift Enema Disposable (Sodium Phosphates) 1 Karoline Karoline 1 Applic RECTAL DAILY PRN Dulcolax Supp (Bisacodyl) 10 Mg Supp 10 Mg RECTAL DAILY PRN Aspirin Adult Low Strength (Aspirin) 81 Mg Tabdr 81 Mg PO DAILY Albuterol Neb (Albuterol Sulfate) 0.63 Mg/3 Ml Neb 0.63 Mg NEB Q6HR NEB PRN Review of Systems Except as stated in HPI: all other systems reviewed are Neg Physical Exam Narrative GENERAL: Elderly female patient in no acute distress. SKIN: Warm and dry. HEAD: Normocephalic and atraumatic. EYES: No injection, drainage, or hyphema noted. PERRLA. EOMI. ENT: No nasal drainage noted. Oropharynx is clear. NECK: Supple and the trachea is midline. CARDIOVASCULAR: Regular rate and rhythm. RESPIRATORY: Breath sounds are equal bilaterally with no accessory muscle use, wheezing, rhonchi, or crackles. GASTROINTESTINAL: Abdomen is soft, non-tender, and nondistended. MUSCULOSKELETAL: No obvious deformities, swelling, cyanosis, or ecchymosis is present throughout the upper and lower extremities. Patient has full range of motion without any signs of neurovascular compromise. NEUROLOGICAL: Awake, alert, confused. Cranial nerves are grossly intact. 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 Patient is afebrile, vital signs are stable. Patient has dementia and pulled out her G-tube about 30 minutes prior to arrival. Vital signs are stable, physical examination is unremarkable. I am able to replace the patient's G tube with an 18 canadian G tube. X-ray confirms placement of G- tube is correct. Patient is stable to be discharged back to her long term facility. Procedures Procedure Narrative G tube placement: 18 canadian gastrojejunostomy tube is placed into external opening of abdominal wall in sterile fashion using gentle pressure. 10 cc saline baloon inflated. Successfully placed. Patient tolerated well. Diagnosis Primary Impression: Dislodged gastrostomy tube Referrals: Primary Care Physician Patient Instructions: General Instructions, How to Use and Care for Your PEG Tube (ED) Additional Instructions: Follow-up with your Primary Care Physician as needed. Return to the ED for any acute worsening of symptoms. Med/Other Pt SpecificInfo: No Change to Meds Disposition: 03 DISCHARGE TO SNF Condition: Stable Peace Bach Sep 19, 2016 22:34
[2016-09-19] MEDS ORDERED: LORA-392 PO (22:40)
[2016-09-19] MEDS ORDERED: DIATRIZOATE MEGLUM/DIATRIZOATE SOD 120 ML BTL (for RAD DIAG) G-TUBE ONE (23:19)
--- NOTE | 2016-09-19 23:30 | RADRPT ---
EXAM DATE/TIME: 09/19/2016 22:54 [facility] COMPARISON: CT ABDOMEN & PELVIS W/O CONTRAST, May 04, 2015, 15:31. INDICATIONS : Evaluate G tube placement. MEDICAL HISTORY : Hypertension. Gastroesophageal reflux disease. Hiatal hernia. Dementia. SURGICAL HISTORY : Appendectomy. Cholecystectomy. Hysterectomy. ENCOUNTER: Initial ACUITY: 1 day PAIN SCORE: Non-responsive. LOCATION: Abdomen. FINDINGS: Contrast was injected in the patient's G-tube and opacifies loops of small bowel and the stomach. The re are 2 separate duodenal diverticuli coming off the fourth portion of the duodenum the larger one m easures 2.3 cm in size. There is no extravasation. There is moderate amount of stool throughout the c olon. 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 Jenifer Da Silva MD on September 19, 2016 at 23:26 Board Certified Radiologist. This report was verified electronically.
[2016-09-20 03:00] VITALS: BP 134/83; PULSE 71; RESP 16; O2SAT 97
== END 2016-09-20 07:45 ==
LOC: NEPC 22:11
DX: Z43.1 Encounter for attention to gastrostomy (principal); Z86.73 Personal history of transient ischemic attack (TIA), and cerebral infarction without residual deficits; K21.9 Gastro-esophageal reflux disease without esophagitis; I10 Essential (primary) hypertension
CPT/HCPCS: 49452; 74000; 99284; Q9963

== ENCOUNTER 2016-10-16 09:41 | Observation (INO) | payer MEDICARE, OTHER ==
[~2016-10-16] VITALS: Ht 167.6 cm; Wt 75.0 kg
[~2016-10-16 09:41] MED LIST changes: -AMOX250C3 PEG; +LORA-392 PEG; -[UNRECOGNIZED DRUG - CODE] IV
[2016-10-16 09:52] VITALS: BP 142/63; PULSE 73; RESP 16; TEMP 97.8; O2SAT 96
--- NOTE | 2016-10-16 10:46 | PD ---
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 She did this last month as well. She is extremely demented. She can provide no history or review of systems. sHe does not cooperate at all and actively resists exam. She gets tube feeds at nighttime. It's unclear how long the tube was out for. PFSH Past Medical History Medical History: Unable to Obtain Arthritis: Yes Asthma: No Atrial Fibrillation: Yes Autoimmune Disease: No Blood Disorders: No Bipolar Disorder: Yes Anxiety: No Depression: No Heart Rhythm Problems: No Cancer: No Cardiovascular Problems: Yes (angina) High Cholesterol: No Chemotherapy: No Chest Pain: No Congestive Heart Failure: No COPD: No Cerebrovascular Accident: Yes Diabetes: No Diminished Hearing: Yes ([place]) Endocrine: No Gastrointestinal Disorders: Yes GERD: Yes Glaucoma: No Genitourinary: Yes (woods) Headaches: No Hepatitis: No Hiatal Hernia: Yes (STRETCHED ESOPHAGUS HIATAL HERNIA) Hypertension: Yes Immune Disorder: No Kidney Stones: No Musculoskeletal: Yes (left leg bone problems ) Neurologic: Yes (contracted) Psychiatric: No Reproductive: No Respiratory: No Immunizations Current: No Myocardial Infarction: No Radiation Therapy: No Renal Failure: No Schizophrenia: Yes Seizures: No Sickle Cell Disease: No Sleep Apnea: No Thyroid Disease: Yes (hypo) Ulcer: No Tetanus Vaccination: Unknown PNEUMOCCOCAL Vaccine (Year): 3 Menopausal: Yes Past Surgical History Surgical History: Unable to Obtain Abdominal Surgery: Yes (HERNIA REPAIR) AICD: No Appendectomy: Yes Body Medical Devices: WALKER Cardiac Surgery: No Cholecystectomy: Yes Endocrine Surgery: Yes (THYROID (1952)) Eye Surgery: Yes (CATARACTS) Gynecologic Surgery: Yes (HYSTERECTOMY) Hysterectomy: Yes Neurologic Surgery: No Pacemaker: No Thoracic Surgery: No Other Surgery: Yes (PARTIAL THROIDISM) Social History Alcohol Use: Yes (OCCAS) Tobacco Use: No Substance Use: No Allergies-Medications (Allergen,Severity, Reaction): Coded Allergies: Celecoxib (Verified Allergy, Unknown, 10/16/16) Haloperidol (Verified Allergy, Unknown, 10/16/16) Risperidone (Verified Allergy, Unknown, 10/16/16) Sulfa (Verified Allergy, Unknown, 10/16/16) Aspirin (Verified Adverse Reaction, Intermediate, NOSE BLEEDS, 10/16/16) Thorazine (Verified Adverse Reaction, Intermediate, CRAMPS, 10/16/16) *MDRO Multi-Drug Resistant Organism (Verified Adverse Reaction, Unknown, ESBL, 10/16/16) ESBL (urine) - 09/05/16 Reported Meds & Prescriptions Reported Meds & Active Scripts Active Aldactone (Spironolactone) 25 Mg Tab 25 Mg PEG DAILY Pravastatin 10 Mg Tab 10 Mg PEG HS Thera/Beta-Carotene (Multiple Vitamin) 1 Tab Tab 1 Tab PEG DAILY Mirtazapine 15 Mg Tab 15 Mg PEG HS Lopressor (Metoprolol Tartrate) 50 Mg Tab 50 Mg PEG BID Synthroid (Levothyroxine Sodium) 100 Mcg Tab 100 Mcg PEG DAILY@0600 Synthroid (Levothyroxine Sodium) 88 Mcg Tab 88 Mcg PEG DAILY@0600 Prevacid Solutab ODT (Lansoprazole) 30 Mg Tab 30 Mg PEG DAILY Plavix (Clopidogrel Bisulfate) 75 Mg Tab 75 Mg PEG DAILY Reported Milk of Magnesia Liq (Magnesium Hydroxide) 400 Mg/5 Ml Susp 30 Ml PEG HS PRN Citroma Liq (Magnesium Citrate) 300 Ml Liq 296 Ml PEG IN THE AM PRN Tylenol (Acetaminophen) 325 Mg Tab 650 Mg PEG Q4H PRN Depakote DR (Divalproex Sodium) 250 Mg Tabdr 250 Mg PEG BID Ascorbic Acid 500 Mg Tab 500 Mg PEG BID Ativan (Lorazepam) 0.5 Mg Tab 0.5 Mg PEG Q4HR PRN Ammonium Lactate (Lactic Acid (Ammonium Lactate)) 12% Lotn 1 Applic TOPICAL BID Apply to whole body every day and evening shift Enema Disposable (Sodium Phosphates) 1 Karoline Karoline 1 Applic RECTAL DAILY PRN Dulcolax Supp (Bisacodyl) 10 Mg Supp 10 Mg RECTAL DAILY PRN Albuterol Neb (Albuterol Sulfate) 0.63 Mg/3 Ml Neb 0.63 Mg NEB Q6HR NEB PRN Review of Systems ROS Limitations: Clinical Condition, Uncooperative, Poor Historian Physical Exam Narrative GENERAL: Thin elderly uncooperative patient in no apparent distress. SKIN: Focused skin assessment reveals no rash and nodules. Skin is Warm and dry. HEAD: Atraumatic. Normocephalic. EYES: Pupils equal and round. No scleral icterus. No injection or drainage. ENT: No nasal bleeding or discharge. Mucous membranes pink and moist. NECK: Trachea midline. No JVD. CARDIOVASCULAR: Regular rate and rhythm. No murmur appreciated. RESPIRATORY: No accessory muscle use. Clear to auscultation. Breath sounds equal bilaterally. GASTROINTESTINAL: Abdomen soft, non-tender, nondistended. Hepatic and splenic margins not palpable. Unfortunately the G-tube site has closed off already. I attempted to replace with an 18-gauge G-tube but it will not go in the hole. In fact, I cannot even get a Q-tip to pass through the opening. MUSCULOSKELETAL: No obvious deformities. No clubbing. No cyanosis. No edema. NEUROLOGICAL: Awake and alert. No obvious cranial nerve deficits. Motor grossly within normal limits. Normal speech. PSYCHIATRIC: ornery and uncooperative mood and affect; insight and judgment very poor. Data Data Last Documented VS Vital Signs Date Time Temp Pulse Resp B/P Pulse Ox O2 Delivery O2 Flow Rate FiO2 10/16/16 10:00 Room Air 10/16/16 09:52 97.8 73 16 142/63 96 Orders Iv Access Insert/Monitor (10/16/16 11:10) Complete Blood Count With Diff (10/16/16 11:10) Basic Metabolic Panel (Bmp) (10/16/16 11:10) Prothrombin Time / Inr (Pt) (10/16/16 11:10) Act Partial Throm Time (Ptt) (10/16/16 11:10) NPO (10/16/16 11:10) Admit Order (Ed Use Only) (10/16/16 12:13) Labs Laboratory Tests Test 10/16/16 11:45 White Blood Count 12.2 TH/MM3 Red Blood Count 3.33 MIL/MM3 Hemoglobin 9.6 GM/DL Hematocrit 31.2 % Mean Corpuscular Volume 93.7 FL Mean Corpuscular Hemoglobin 28.8 PG Mean Corpuscular Hemoglobin 30.7 % Concent Red Cell Distribution Width 17.5 % Platelet Count 295 TH/MM3 Mean Platelet Volume 9.3 FL Neutrophils (%) (Auto) 70.0 % Lymphocytes (%) (Auto) 14.3 % Monocytes (%) (Auto) 9.6 % Eosinophils (%) (Auto) 5.3 % Basophils (%) (Auto) 0.8 % Neutrophils # (Auto) 8.6 TH/MM3 Lymphocytes # (Auto) 1.7 TH/MM3 Monocytes # (Auto) 1.2 TH/MM3 Eosinophils # (Auto) 0.6 TH/MM3 Basophils # (Auto) 0.1 TH/MM3 CBC Comment DIFF FINAL Differential Comment Prothrombin Time 10.5 SEC Prothromb Time International 1.0 RATIO Ratio Activated Partial 26.1 SEC Thromboplast Time Sodium Level 144 MEQ/L Potassium Level 4.8 MEQ/L Chloride Level 110 MEQ/L Carbon Dioxide Level 26.6 MEQ/L Anion Gap 7 MEQ/L Blood Urea Nitrogen 34 MG/DL Creatinine 0.53 MG/DL Estimat Glomerular Filtration 110 ML/MIN Rate Random Glucose 102 MG/DL Calcium Level 8.7 MG/DL MDM Medical Decision Making Medical Screen Exam Complete: Yes Emergency Medical Condition: Yes Medical Record Reviewed: Yes Differential Diagnosis Dislodged feeding tube, dysphagia, dementia Narrative Course I have reviewed the patient's electronic medical record. Patient was here last month when she pulled her feeding tube out but the hole was not closed off and it was replaced in the ER. I reviewed the case in detail with GI physician Dr. Crowell. He recommends waiting till the tube feeds have passed through so he would place a feeding tube under endoscopy but not for another 5 hours Patient will be observed in the hospital under Dr. Gray's service with GI consultation for feeding tube placement She does get nightly tube feeds IV placed CBC is normal Metabolic profile is normal except for isolated minor elevation of BUN Coagulation studies are normal I reviewed the case with nurse practitioner covering for primary physician Dr. Gray she is agreeable to the plan Diagnosis Primary Impression: Dislodged gastrostomy tube Additional Impressions: Encounter for feeding tube placement Alzheimer disease Qualified Code: G30.8 - Alzheimer's dementia with behavioral disturbance, unspecified timing of dementia onset Admitting Information Admitting Physician Requests: Observation Santino Romero MD Oct 16, 2016 10:46
[2016-10-16] MEDS ORDERED: CITRSOL4 PEG (10:57)
[2016-10-16] MEDS ORDERED: MILKSUS PEG (10:57)
[2016-10-16] MEDS ORDERED: TYLE325T PEG (10:57)
[2016-10-16] MEDS ORDERED: DEPA250T2 PEG (10:57)
[2016-10-16] MEDS ORDERED: ASCO500T PEG (10:57)
[2016-10-16 12:04] LABS: AUTOMATED NEUTROPHIL # 8.6 TH/MM3 (1.8-7.7); BASOPHIL # 0.1 TH/MM3 (0-0.2); BASOPHIL % 0.8 % (0.0-2.0); EOSINOPHIL # 0.6 TH/MM3 (0-0.4); EOSINOPHIL % 5.3 % (0.0-4.0); HEMATOCRIT 31.2 % (35.0-46.0); HEMO FLAGS DIFF FINAL; LYMPH % 14.3 % (9.0-44.0); LYMPHOCYTE # 1.7 TH/MM3 (1.0-4.8); MEAN CELL VOLUME 93.7 FL (80.0-100.0); MEAN CORPUSCULAR HEMOGLOBIN 28.8 PG (27.0-34.0); MEAN CORPUSCULAR HGB CONC 30.7 % (32.0-36.0); MONO % 9.6 % (0.0-8.0); PLATELET COUNT 295 TH/MM3 (150-450); RED BLOOD COUNT 3.33 MIL/MM3 (4.00-5.30); RED CELL DISTRIBUTION WIDTH 17.5 % (11.6-17.2); WHITE BLOOD COUNT 12.2 TH/MM3 (4.0-11.0)
[2016-10-16 12:05] LABS: APTT (PATIENT) 26.1 SEC (24.3-30.1); PROTHROMBIN TIME - PATIENT 10.5 SEC (9.8-11.6)
[2016-10-16 12:11] LABS: BICARBONATE 26.6 MEQ/L (21.0-32.0); POTASSIUM 4.8 MEQ/L (3.5-5.1)
[2016-10-16] MEDS ORDERED: D5-1/2 NS + KCL 20 MEQ INJ 1,000 ML IV SCH (13:03)
[2016-10-16] MEDS ORDERED: LACTULOSE SYRUP 20 GM/30 ML CUP PO PRN (13:15)
[2016-10-16] MEDS ORDERED: BISACODYL 10 MG SUPP RECTAL PRN (13:15)
[2016-10-16] MEDS ORDERED: SENNOSIDES 8.6 MG TAB PO PRN (13:15)
[2016-10-16] MEDS ORDERED: MAGNESIUM HYDROXIDE SUSP 30 ML CUP PO PRN (13:15)
[2016-10-16] MEDS ORDERED: NALOXONE HCL 0.4 MG/ML AMP IV PRN (13:15)
[2016-10-16] MEDS ORDERED: SODIUM CHLORIDE 0.9% FLUSH 10 ML FLUSH IV FLUSH PRN (13:15)
[2016-10-16] MEDS ORDERED: ACETAMINOPHEN 325 MG TAB PO PRN (13:15)
[2016-10-16] MEDS ORDERED: ONDANSETRON HCL 4 MG/2 ML VIAL IVP PRN (13:15)
[2016-10-16 13:51] VITALS: BP 118/56; PULSE 78; RESP 16; O2SAT 97
[2016-10-16] MEDS: D5-NS + KCL 20 MEQ INJ 1,000 ML IV SCH (14:00)
[2016-10-16 16:54] VITALS: BP 131/61; PULSE 86; RESP 20; O2SAT 95
--- NOTE | 2016-10-16 18:43 | HHI.HP ---
History of Present Illness Primary Care Physician jessie bird DO Admission Diagnosis inability to eat, needs feeding tube,dementia Diagnoses: History of Present Illness lpulled out peg Review of Systems Psychiatric: COMPLAINS OF: Confusion Past Family Social History Allergies: Coded Allergies: Celecoxib (Verified Allergy, Unknown, 10/16/16) Haloperidol (Verified Allergy, Unknown, 10/16/16) Risperidone (Verified Allergy, Unknown, 10/16/16) Sulfa (Verified Allergy, Unknown, 10/16/16) Aspirin (Verified Adverse Reaction, Intermediate, NOSE BLEEDS, 10/16/16) Thorazine (Verified Adverse Reaction, Intermediate, CRAMPS, 10/16/16) *MDRO Multi-Drug Resistant Organism (Verified Adverse Reaction, Unknown, ESBL, 10/16/16) ESBL (urine) - 09/05/16 Past Medical History angina, afib, cva Past Surgical History CATARRACTS SHOULDERX2 THYROIDECTOMY ORIF FEMUR LEFT KNEE HIATAL HERNIAE REPAIR Reported Medications Reported Meds & Active Scripts Active Aldactone (Spironolactone) 25 Mg Tab 25 Mg PEG DAILY Pravastatin 10 Mg Tab 10 Mg PEG HS Thera/Beta-Carotene (Multiple Vitamin) 1 Tab Tab 1 Tab PEG DAILY Mirtazapine 15 Mg Tab 15 Mg PEG HS Lopressor (Metoprolol Tartrate) 50 Mg Tab 50 Mg PEG BID Synthroid (Levothyroxine Sodium) 100 Mcg Tab 100 Mcg PEG DAILY@0600 Synthroid (Levothyroxine Sodium) 88 Mcg Tab 88 Mcg PEG DAILY@0600 Prevacid Solutab ODT (Lansoprazole) 30 Mg Tab 30 Mg PEG DAILY Plavix (Clopidogrel Bisulfate) 75 Mg Tab 75 Mg PEG DAILY Reported Milk of Magnesia Liq (Magnesium Hydroxide) 400 Mg/5 Ml Susp 30 Ml PEG HS PRN Citroma Liq (Magnesium Citrate) 300 Ml Liq 296 Ml PEG IN THE AM PRN Tylenol (Acetaminophen) 325 Mg Tab 650 Mg PEG Q4H PRN Depakote DR (Divalproex Sodium) 250 Mg Tabdr 250 Mg PEG BID Ascorbic Acid 500 Mg Tab 500 Mg PEG BID Ativan (Lorazepam) 0.5 Mg Tab 0.5 Mg PEG Q4HR PRN Ammonium Lactate (Lactic Acid (Ammonium Lactate)) 12% Lotn 1 Applic TOPICAL BID Apply to whole body every day and evening shift Enema Disposable (Sodium Phosphates) 1 Karoline Karoline 1 Applic RECTAL DAILY PRN Dulcolax Supp (Bisacodyl) 10 Mg Supp 10 Mg RECTAL DAILY PRN Albuterol Neb (Albuterol Sulfate) 0.63 Mg/3 Ml Neb 0.63 Mg NEB Q6HR NEB PRN Active Ordered Medications Inpatient Medications Acetaminophen (Tylenol) 650 mg Q4H PRN PO TEMP > 100.4; Start 10/16/16 at 13:15 Bisacodyl (Dulcolax Supp) 10 mg DAILY PRN RECTAL SEVERE CONSITIPATION; Start at 13:15 Lactulose 30 ml 30 ml DAILY PRN PO SEVERE CONSITIPATION; Start 10/16/16 at 13: 15 Magnesium Hydroxide (Milk Of Magnberna Liq) 30 ml Q12H PRN PO MILD - MODERATE CONSTIPATION; Start 10/16/16 at 13:15 Naloxone HCl (Narcan Inj) 0.4 mg UNSCH PRN IV SEE LABEL COMMENTS; Start at 13:15 Ondansetron HCl (Zofran Inj) 4 mg Q6H PRN IVP NAUSEA OR VOMITING; Start at 13:15 Potassium Chloride/Dextrose/ Sod Cl (D5-1/2 NS + KCl 20 Meq Inj) 1,000 ml @ 100 mls/hr Q10H IV ; Start 10/16/16 at 13:03; Stop 10/16/16 at 13:16; Status DC Potassium Chloride/Dextrose/ Sod Cl (D5-NS + KCl 20 Meq Inj) 1,000 ml @ 84 mls/ hr [id number] IV Last administered on 10/16/16t 14:00; Start 10/16/16 at 14:00 Senna/Docusate Sodium (Peggy-Colace) 1 tab BID PO ; Start 10/16/16 at 21:00 Sennosides (Senokot) 17.2 mg Q12H PRN PO MODERATE - SEVERE CONSTIPATION; Start 10/16/16 at 13:15 Sodium Chloride (NS Flush) 2 ml BID IV FLUSH ; Start 10/16/16 at 21:00 Family History heart disease Social History resides at [facility] non smoker non drinker Physical Exam Vital Signs Vital Signs Date Time Temp Pulse Resp B/P Pulse Ox O2 Delivery O2 Flow Rate FiO2 10/16/16 16:54 86 20 131/61 95 10/16/16 13:51 78 16 118/56 97 Room Air 10/16/16 10:00 Room Air 10/16/16 09:52 97.8 73 16 142/63 96 Physical Exam GENERAL: This is a frail confused elderly female, in no apparent distress. SKIN: No rashes, ecchymoses or lesions. Cool and dry. HEAD: Atraumatic. Normocephalic. No temporal or scalp tenderness. EYES: Pupils equal round and reactive. Extraocular motions intact. No scleral icterus. No injection or drainage. ENT: Nose without bleeding, purulent drainage or septal hematoma. Throat without erythema, tonsillar hypertrophy or exudate. Uvula midline. Airway patent. NECK: Trachea midline. No JVD or lymphadenopathy. Supple, nontender, no meningeal signs. CARDIOVASCULAR: Regular rate and rhythm without murmurs, gallops, or rubs. RESPIRATORY: Clear to auscultation. Breath sounds equal bilaterally. No wheezes , rales, or rhonchi. GASTROINTESTINAL: Abdomen soft, non-tender, nondistended. No hepato-splenomegaly , or palpable masses. No guarding.peg incision present MUSCULOSKELETAL: Extremities without clubbing, or edema NEUROLOGICAL: Awake and confused Normal speech. Laboratory Laboratory Tests Test 10/16/16 11:45 White Blood Count 12.2 Red Blood Count 3.33 Hemoglobin 9.6 Hematocrit 31.2 Mean Corpuscular Volume 93.7 Mean Corpuscular Hemoglobin 28.8 Mean Corpuscular Hemoglobin 30.7 Concent Red Cell Distribution Width 17.5 Platelet Count 295 Mean Platelet Volume 9.3 Neutrophils (%) (Auto) 70.0 Lymphocytes (%) (Auto) 14.3 Monocytes (%) (Auto) 9.6 Eosinophils (%) (Auto) 5.3 Basophils (%) (Auto) 0.8 Neutrophils # (Auto) 8.6 Lymphocytes # (Auto) 1.7 Monocytes # (Auto) 1.2 Eosinophils # (Auto) 0.6 Basophils # (Auto) 0.1 CBC Comment DIFF FINAL Differential Comment Prothrombin Time 10.5 Prothromb Time International 1.0 Ratio Activated Partial 26.1 Thromboplast Time Sodium Level 144 Potassium Level 4.8 Chloride Level 110 Carbon Dioxide Level 26.6 Anion Gap 7 Blood Urea Nitrogen 34 Creatinine 0.53 Estimat Glomerular Filtration 110 Rate Random Glucose 102 Calcium Level 8.7 Result Diagram: 10/16/16 1145 10/16/16 1145 Assessment and Plan Problem List: (1) Dislodged gastrostomy tube Status: Acute Plan: consult gi and replace tube (2) Alzheimer disease Status: Chronic (3) Sacral decubitus ulcer Status: Acute Assessment and Plan consult GI for tube insertion Problem Qualifiers (1) Alzheimer disease: Qualified Code: G30.8 - Alzheimer's dementia with behavioral disturbance, unspecified timing of dementia onset Nicolas Bird DO Oct 16, 2016 18:43
--- NOTE | 2016-10-16 18:59 | PD.CONS ---
HPI History of Present Illness This is a 86 year old demented woman who resides in a nursing home facility and receives nutrition via PEG tube. Her tube became dislodged today and the fistula closed quickly and tube could not be inserted in the ED. She will need PEG tube placement with endoscopy tomorrow. She does take plavix daily via PEG tube. ROS is not possible as patient is not conversant.[]. PFSH Past Medical History Dementia Thyroid disease Past Surgical History Hip replacement Hiatal hernia repair Previous PEG placement Coded Allergies: Celecoxib (Verified Allergy, Unknown, 10/16/16) Haloperidol (Verified Allergy, Unknown, 10/16/16) Risperidone (Verified Allergy, Unknown, 10/16/16) Sulfa (Verified Allergy, Unknown, 10/16/16) Aspirin (Verified Adverse Reaction, Intermediate, NOSE BLEEDS, 10/16/16) Thorazine (Verified Adverse Reaction, Intermediate, CRAMPS, 10/16/16) *MDRO Multi-Drug Resistant Organism (Verified Adverse Reaction, Unknown, ESBL, 10/16/16) ESBL (urine) - 09/05/16 Medications Current Medications Medications (Trade) Dose Ordered Sig/Db Route Start Time Stop Time Status Last Admin (NS Flush) 2 ml UNSCH PRN IV FLUSH 10/16/16 13:15 (NS Flush) 2 ml BID IV FLUSH 10/16/16 21:00 (Tylenol) 650 mg Q4H PRN PO 10/16/16 13:15 (Zofran Inj) 4 mg Q6H PRN IVP 10/16/16 13:15 (Narcan Inj) 0.4 mg UNSCH PRN IV 10/16/16 13:15 (Peggy-Colace) 1 tab BID PO 10/16/16 21:00 (Milk Of Magnesia Liq) 30 ml Q12H PRN PO 10/16/16 13:15 (Senokot) 17.2 mg Q12H PRN PO 10/16/16 13:15 (Dulcolax Supp) 10 mg DAILY PRN RECTAL 10/16/16 13:15 Lactulose 30 ml 30 ml DAILY PRN PO 10/16/16 13:15 (D5-NS + KCl 20 Meq Inj) 1,000 ml @ 84 mls/hr [id number] IV 10/16/16 14:00 10/16/16 14:00 Family History CAD Social History Lives in [facility]. Does not smoke or drink alcohol GI Exam Vitals I&O Vital Signs Date Time Temp Pulse Resp B/P Pulse Ox O2 Delivery O2 Flow Rate FiO2 10/16/16 16:54 86 20 131/61 95 10/16/16 13:51 78 16 118/56 97 Room Air 10/16/16 10:00 Room Air 10/16/16 09:52 97.8 73 16 142/63 96 Laboratory Test 10/16/16 11:45 White Blood Count 12.2 TH/MM3 Red Blood Count 3.33 MIL/MM3 Hemoglobin 9.6 GM/DL Hematocrit 31.2 % Mean Corpuscular Volume 93.7 FL Mean Corpuscular Hemoglobin 28.8 PG Mean Corpuscular Hemoglobin 30.7 % Concent Red Cell Distribution Width 17.5 % Platelet Count 295 TH/MM3 Mean Platelet Volume 9.3 FL Neutrophils (%) (Auto) 70.0 % Lymphocytes (%) (Auto) 14.3 % Monocytes (%) (Auto) 9.6 % Eosinophils (%) (Auto) 5.3 % Basophils (%) (Auto) 0.8 % Neutrophils # (Auto) 8.6 TH/MM3 Lymphocytes # (Auto) 1.7 TH/MM3 Monocytes # (Auto) 1.2 TH/MM3 Eosinophils # (Auto) 0.6 TH/MM3 Basophils # (Auto) 0.1 TH/MM3 CBC Comment DIFF FINAL Differential Comment Prothrombin Time 10.5 SEC Prothromb Time International 1.0 RATIO Ratio Activated Partial 26.1 SEC Thromboplast Time Sodium Level 144 MEQ/L Potassium Level 4.8 MEQ/L Chloride Level 110 MEQ/L Carbon Dioxide Level 26.6 MEQ/L Anion Gap 7 MEQ/L Blood Urea Nitrogen 34 MG/DL Creatinine 0.53 MG/DL Estimat Glomerular Filtration 110 ML/MIN Rate Random Glucose 102 MG/DL Calcium Level 8.7 MG/DL Physical Examination HEENT: Pupils round and reactive to light; normocephalic; atraumatic; no jaundice. Throat is clear. NECK: Neck is supple, no JVD, no lymphadenopathy. CHEST: Chest is clear to auscultation and percussion. CARDIAC: Regular rate and rhythm with no murmur gallop or rubs. ABDOMEN: Soft, nondistended, nontender; no hepatosplenomegaly; bowel sounds are present in all four quadrants. EXTREMITIES: No clubbing, cyanosis, or edema. SKIN: Normal; no rash; no jaundice. FINANCIAL SALES ADVISOR: Awake but not conversant. Assessment and Plan Plan Imp: PEG tube dislodged Alzheimers Plan: EGD with PEG tube placement tomorrow NPO Jey Crowell MD Oct 16, 2016 18:58
[2016-10-16] MEDS: DOCUSATE SODIUM 50 MG/SENNA 8.6 MG TAB PO SCH (21:00)
[2016-10-16 21:27] VITALS: BP 130/59; PULSE 77; RESP 16; TEMP 96.2
[2016-10-16 23:48] VITALS: BP 146/67; PULSE 77; RESP 16; TEMP 98.1; O2SAT 97
[2016-10-16] MEDS: SODIUM CHLORIDE 0.9% FLUSH 10 ML FLUSH IV FLUSH SCH (23:57)
[2016-10-17 00:40] LABS: BACTERIA, URINE MANY /hpf; BLOOD, URINE NEG (NEG); GLUCOSE,URINE NEG (NEG); KETONE, URINE NEG (NEG); MUCUS URINE MOD /lpf (OCC); PH, URINE 5.5 (5.0-8.5); URINE COLOR YELLOW (YELLW/STRAW)
[2016-10-17 00:41] LABS: COMMENT (UR) CATH-CULTURE IND; CULTURE IF INDICATED CATH CULTURE IND; NITRITE,URINE POS (NEG)
[2016-10-17] MEDS: D5-NS + KCL 20 MEQ INJ 1,000 ML IV SCH ×2 (04:22→16:55)
[2016-10-17] MEDS: cefTRIAXone 1,000 MG/NS 100 ML IV SCH ×2 (05:54)
[2016-10-17 07:41] VITALS: BP 136/60; PULSE 74; RESP 16; TEMP 97.8; O2SAT 95
[2016-10-17] MEDS: DOCUSATE SODIUM 50 MG/SENNA 8.6 MG TAB PO SCH ×2 (09:00→21:00)
[2016-10-17 09:09] LABS: BASOPHIL % 0.5 % (0.0-2.0); EOSINOPHIL # 0.5 TH/MM3 (0-0.4); EOSINOPHIL % 5.3 % (0.0-4.0); HEMATOCRIT 31.7 % (35.0-46.0); HEMO FLAGS DIFF FINAL; LYMPHOCYTE # 1.5 TH/MM3 (1.0-4.8); MEAN CELL VOLUME 93.5 FL (80.0-100.0); MEAN CORPUSCULAR HEMOGLOBIN 29.6 PG (27.0-34.0); MEAN CORPUSCULAR HGB CONC 31.6 % (32.0-36.0); MONO % 10.4 % (0.0-8.0); NEUT % 68.8 % (16.0-70.0); PLATELET COUNT 286 TH/MM3 (150-450); RED BLOOD COUNT 3.39 MIL/MM3 (4.00-5.30); RED CELL DISTRIBUTION WIDTH 18.1 % (11.6-17.2); WHITE BLOOD COUNT 10.2 TH/MM3 (4.0-11.0)
[2016-10-17] MEDS: SODIUM CHLORIDE 0.9% FLUSH 10 ML FLUSH IV FLUSH SCH ×2 (09:34→21:00)
[2016-10-17 09:46] LABS: BICARBONATE 24.5 MEQ/L (21.0-32.0); POTASSIUM 4.5 MEQ/L (3.5-5.1)
[2016-10-17 09:56] LABS: FREE T3 0.98 PG/ML (2.18-3.98)
[2016-10-17 11:47] VITALS: BP 136/60; PULSE 74; RESP 16; TEMP 97.8; O2SAT 95
--- NOTE | 2016-10-17 13:15 | EKG ---
Date Performed: 10/17/2016 Time Performed: 12:34:40 PTAGE: 86 years EKG: Sinus rhythm BORDERLINE LEFT AXIS DEVIATION NONSPECIFIC T-WAVE ABNORMALITY BORDERLINE ECG PREVIOUS TRACING : 04/30/2016 22.31 No change from previous tracing noted. DOCTOR: Chuck Llamas Interpretating Date/Time 10/17/2016 13:15:01
[2016-10-17] MEDS ORDERED: ceFAZolin INJ 1,000 MG VIAL IV ONE (13:39)
--- NOTE | 2016-10-17 13:41 | HHI.PR ---
Subjective Remarks Patient responds to name but not cooperative and does not answer questions Objective Vital Signs Date Time Temp Pulse Resp B/P Pulse Ox O2 Delivery O2 Flow Rate FiO2 10/17/16 11:47 97.8 74 16 136/60 95 10/17/16 07:41 97.8 74 16 136/60 95 10/16/16 23:48 98.1 77 16 146/67 97 10/16/16 21:27 96.2 77 16 130/59 10/16/16 16:54 86 20 131/61 95 10/16/16 13:51 78 16 118/56 97 Room Air I/O 10/16/16 10/16/16 10/16/16 10/17/16 10/17/16 10/17/16 07:00 15:00 23:00 07:00 15:00 23:00 Output Total 700 ml Balance -700 ml Output Urine Total 700 ml # Voids 3 Result Diagram: 10/17/16 0755 10/17/16 0750 Other Results GENERAL: Combative and not cooperative SKIN: Warm and dry. Pressure ulcer noted on coccyx HEAD: Normocephalic. EYES: No scleral icterus. No injection or drainage. NECK: Supple, trachea midline. No JVD or lymphadenopathy. CARDIOVASCULAR: Regular rate and rhythm without murmurs, gallops, or rubs. RESPIRATORY: Breath sounds equal bilaterally. No accessory muscle use. GASTROINTESTINAL: Abdomen soft, non-tender, nondistended. MUSCULOSKELETAL: No cyanosis, or edema. BACK: Nontender without obvious deformity. No CVA tenderness. Medications and IVs Current Medications Medications (Trade) Dose Ordered Sig/Db Route Start Time Stop Time Status Last Admin (NS Flush) 2 ml UNSCH PRN IV FLUSH 10/16/16 13:15 (NS Flush) 2 ml BID IV FLUSH 10/16/16 21:00 10/16/16 23:57 (Tylenol) 650 mg Q4H PRN PO 10/16/16 13:15 (Zofran Inj) 4 mg Q6H PRN IVP 10/16/16 13:15 (Narcan Inj) 0.4 mg UNSCH PRN IV 10/16/16 13:15 (Peggy-Colace) 1 tab BID PO 10/16/16 21:00 (Milk Of Magnesia Liq) 30 ml Q12H PRN PO 10/16/16 13:15 (Senokot) 17.2 mg Q12H PRN PO 10/16/16 13:15 (Dulcolax Supp) 10 mg DAILY PRN RECTAL 10/16/16 13:15 Lactulose 30 ml 30 ml DAILY PRN PO 10/16/16 13:15 Potassium Chloride/Dextrose/ Sod Cl 1,000 ml @ 84 mls/hr [id number] IV 10/16/16 14:00 10/17/16 04:22 (Rocephin Inj/NS Inj) 100 ml @ 200 mls/hr Q24H IV 10/17/16 06:00 10/23/16 06:29 10/17/16 05:54 (Pneumovax-23 Inj) 25 mcg ONCE ONCE IM 10/18/16 10:00 10/18/16 10:01 Assessment and Plan Problem List: (1) Encounter for feeding tube placement Status: Acute Plan: GI consulted and G tube placement scheduled for today (2) Oppositional behavior Status: Acute Plan: Could be related to UTI will order Risperdal. (3) UTI (lower urinary tract infection) Status: Acute Plan: Rocephin ordered every 24 hours. Culture pending (4) Sacral decubitus ulcer Status: Acute Plan: Wound care consulted for recommendations. MVI ordered and specialty bed. Assessment and Plan Assessment and plan discussed with Dr. Monreal Discussed Condition With Nursing Discharge Planning [facility] Physician Attestation I and the COMPENSATION ADJUSTER have both examined this patient and reviewed this note and I agree with these findings and plan of care. Elyssa Whiting. [facility] Oct 17, 2016 13:41
[2016-10-17] MEDS ORDERED: PROPOFOL 200 MG/20 ML AMP IV PUSH ONE (14:00)
--- NOTE | 2016-10-17 14:10 | HHI.GIFU ---
Subjective Remarks Immediate postop note: PEG tube replacement Indication: PEG tube dislodged. Meds: MAC Findings: Esophagus Normal Stomach: normal. Old PEG tube site identified endoscopiclly. PEG tube placed in usual way through the old site. Skin incision was made. Dressing applied. Imp: successful replacement of PEG tube through the previous fistula. Rec: OK to use PEG tube now without the usual 24 hour wait since we used the same site. Objective Vitals I&O Vital Signs Date Time Temp Pulse Resp B/P Pulse Ox O2 Delivery O2 Flow Rate FiO2 10/17/16 11:47 97.8 74 16 136/60 95 10/17/16 07:41 97.8 74 16 136/60 95 10/16/16 23:48 98.1 77 16 146/67 97 10/16/16 21:27 96.2 77 16 130/59 10/16/16 16:54 86 20 131/61 95 I/O 10/16/16 10/16/16 10/16/16 10/17/16 10/17/16 10/17/16 07:00 15:00 23:00 07:00 15:00 23:00 Output Total 700 ml Balance -700 ml Output Urine Total 700 ml # Voids 3 Laboratory Laboratory Tests Test 10/17/16 10/17/16 10/17/16 00:25 07:50 07:55 Urine Color YELLOW Urine Turbidity CLOUDY Urine pH 5.5 Urine Specific [place] 1.021 Urine Protein TRACE Urine Glucose (UA) NEG Urine Ketones NEG Urine Occult Blood NEG Urine Nitrite POS Urine Bilirubin NEG Urine Urobilinogen LESS THAN 2.0 Urine Leukocyte Esterase LARGE Urine RBC 3 Urine WBC 93 Urine WBC Clumps MANY Urine Amorphous Sediment OCC Urine Bacteria MANY Urine Mucus MOD Microscopic Urinalysis Comment CATH-CULTURE IND Sodium Level 143 Potassium Level 4.5 Chloride Level 112 Carbon Dioxide Level 24.5 Anion Gap 7 Blood Urea Nitrogen 24 Creatinine 0.46 Estimat Glomerular Filtration 129 Rate Random Glucose 86 Calcium Level 9.1 Free Triiodothyronine (T3) 0.98 pg/dL White Blood Count 10.2 Red Blood Count 3.39 Hemoglobin 10.0 Hematocrit 31.7 Mean Corpuscular Volume 93.5 Mean Corpuscular Hemoglobin 29.6 Mean Corpuscular Hemoglobin 31.6 Concent Red Cell Distribution Width 18.1 Platelet Count 286 Mean Platelet Volume 9.4 Neutrophils (%) (Auto) 68.8 Lymphocytes (%) (Auto) 15.0 Monocytes (%) (Auto) 10.4 Eosinophils (%) (Auto) 5.3 Basophils (%) (Auto) 0.5 Neutrophils # (Auto) 7.0 Lymphocytes # (Auto) 1.5 Monocytes # (Auto) 1.1 Eosinophils # (Auto) 0.5 Basophils # (Auto) 0.0 CBC Comment DIFF FINAL Differential Comment Date/Time Procedure Status Source Growth 10/17/16 00:25 Urine Culture Received Urine Clean Catch Pending Physical Exam HEENT: Pupils round and reactive to light; normocephalic; atraumatic; no jaundice. Throat is clear. NECK: Neck is supple, no JVD, no lymphadenopathy. CHEST: Chest is clear to auscultation and percussion. CARDIAC: Regular rate and rhythm with no murmur gallop or rubs. ABDOMEN: Soft, nondistended, nontender; no hepatosplenomegaly; bowel sounds are present in all four quadrants. EXTREMITIES: No clubbing, cyanosis, or edema. SKIN: Normal; no rash; no jaundice. JOINERY SETTER OUT: No focal deficits; alert and oriented times three. Assessment and Plan Plan Imp: Successful replacement of PEG tube with standard PEG tube Plan: OK for patient to be discharged back to nursing facility today and begin using the PEG tube today. No need to wait the usual 24 hours to feed because the PEG tube was placed in the same site. Jey Crowell MD Oct 17, 2016 14:10
[2016-10-17] MEDS ORDERED: ENOXAPARIN SODIUM 30 MG/0.3 ML SYRINGE SQ SCH (15:00)
[2016-10-17 16:42] VITALS: BP 154/74; PULSE 77; RESP 16; TEMP 97.5; O2SAT 98
[2016-10-17] MEDS ORDERED: FAMOTIDINE 20 MG TAB NG SCH (21:00)
[2016-10-17 21:50] VITALS: BP 157/74; PULSE 77; RESP 18; TEMP 98.5; O2SAT 97
[2016-10-18 05:23] VITALS: BP 144/74; PULSE 64; RESP 18; TEMP 97.8; O2SAT 96
[2016-10-18 07:55] VITALS: BP 136/84; PULSE 79; RESP 16; TEMP 97.6; O2SAT 96
[2016-10-18] MEDS: D5-NS + KCL 20 MEQ INJ 1,000 ML IV SCH ×2 (08:38→13:40)
[2016-10-18] MEDS: cefTRIAXone 1,000 MG/NS 100 ML IV SCH ×2 (08:39)
[2016-10-18] MEDS ORDERED: MULTIVITAMINS/MINERALS THERAPEUTIC TAB PO SCH (09:00)
[2016-10-18] MEDS: SODIUM CHLORIDE 0.9% FLUSH 10 ML FLUSH IV FLUSH SCH (09:00)
[2016-10-18] MEDS ORDERED: FAMOTIDINE 20 MG TAB PEG SCH (09:00)
[2016-10-18] MEDS ORDERED: PNEUMOCOCCAL POLYVALENT INJ 25 MCG/0.5 ML SYR IM ONE (10:00)
[2016-10-18 11:03] LABS: HEMATOCRIT 31.9 % (35.0-46.0); MEAN CORPUSCULAR HEMOGLOBIN 29.3 PG (27.0-34.0); MEAN CORPUSCULAR HGB CONC 31.2 % (32.0-36.0); PLATELET COUNT 291 TH/MM3 (150-450); RED BLOOD COUNT 3.39 MIL/MM3 (4.00-5.30); RED CELL DISTRIBUTION WIDTH 17.9 % (11.6-17.2); REVIEW FLAG FINAL; WHITE BLOOD COUNT 9.5 TH/MM3 (4.0-11.0)
[2016-10-18 11:28] LABS: BICARBONATE 24.3 MEQ/L (21.0-32.0); MAGNESIUM 2.3 MG/DL (1.5-2.5); POTASSIUM 4.4 MEQ/L (3.5-5.1)
--- NOTE | 2016-10-18 11:44 | MR ---
cc: NICOLAS MONREAL D.O.,TRAV Christina JR., MD DATE: 10/17/2016 PROCEDURE Percutaneous endoscopic gastrostomy tube placement. INDICATION PEG tube dislodged and could not be reinserted in the emergency room. REFERRING PHYSICIAN Dr. Nicolas Monreal. PROCEDURE After informed consent was obtained the patient was placed in the supine position. She was sedated by the anesthesia service. After adequate sedation was achieved the Pentax video gastroscope was inserted in the oropharynx and advanced down through the esophagus into the stomach. The stomach was inflated. The old PEG tube site was identified. Excellent indentation was obtained at that level. The old PEG tube site on the skin was cleaned with Betadine and the skin was anesthetized. A small incision was made with the scalpel. Through the skin wound a needle and catheter were introduced under direct visualization into the stomach lumen. The catheter was then grasped with a snare and the wire was fed into the stomach. The wire was grasped with a snare and pulled out through the mouth. The PEG tube was then attached to the wire and pulled back through the mouth and into the stomach, then out through the old PEG tube site into position. The tube was fixed to the skin with an external retainer. The scope was then reinserted and the internal retainer was identified to be in excellent position. The scope was then withdrawn. The PEG tube was finalized and abdominal binder was placed over the PEG tube. The patient tolerated the procedure well and was returned to the recovery area in good condition. FINDINGS 1. The esophagus was normal. 2. The stomach was normal. The old PEG site was identified endoscopically and the new PEG tube was placed in the same site. There was excellent indentation there. A re-look examination was performed to demonstrate the internal retainer was in excellent position. IMPRESSION Successful replacement of PEG tube through the previous fistula site. RECOMMENDATIONS 1. It is okay to use the PEG tube now without the usual 24-hour wait since we have used the same site. 2. The patient may be transferred back to her [facility] facility for further care today without a need for waiting overnight. 3. She may resume her usual feeding schedule and formulation. Trav Crowell MD [facility]/Daina Mccormack: 10/17/2016/3:04 PM /11:27 AM
--- NOTE | 2016-10-18 11:53 | HHI.GIFU ---
Subjective Remarks Resting in bed in no distress. TF has not been started yet. Project Manager Senior was in and made recommendations for Jevity 1.5 start at 20 mls, increase by 10 mls q hr until goal rate of 55 ml/hr is reached. Denies abdominal pain. States she is hoping to go back home. Objective Vitals I&O Vital Signs Date Time Temp Pulse Resp B/P Pulse Ox O2 Delivery O2 Flow Rate FiO2 10/18/16 07:55 97.6 79 16 136/84 96 10/18/16 05:23 97.8 64 18 144/74 96 10/17/16 21:50 98.5 77 18 157/74 97 10/17/16 16:42 97.5 77 16 154/74 98 10/17/16 14:22 63 16 150/69 94 10/17/16 14:16 63 16 160/69 96 10/17/16 14:09 97.5 64 16 144/67 96 I/O 10/17/16 10/17/16 10/17/16 10/18/16 10/18/16 10/18/16 07:00 15:00 23:00 07:00 15:00 23:00 Intake Total 300 ml Output Total 700 ml 300 ml Balance -700 ml 300 ml -300 ml Intake IV Total 300 ml Output Urine Total 700 ml 300 ml # Voids 3 Laboratory Laboratory Tests Test 10/17/16 10/18/16 15:27 10:37 Prothrombin Time 11.0 Prothromb Time International 1.0 Ratio White Blood Count 9.5 Red Blood Count 3.39 Hemoglobin 10.0 Hematocrit 31.9 Mean Corpuscular Volume 94.0 Mean Corpuscular Hemoglobin 29.3 Mean Corpuscular Hemoglobin 31.2 Concent Red Cell Distribution Width 17.9 Platelet Count 291 Mean Platelet Volume 8.8 Sodium Level 145 Potassium Level 4.4 Chloride Level 114 Carbon Dioxide Level 24.3 Anion Gap 7 Blood Urea Nitrogen 19 Creatinine 0.59 Estimat Glomerular Filtration 97 Rate Random Glucose 117 Calcium Level 8.9 Phosphorus Level 2.7 Magnesium Level 2.3 Date/Time Procedure Status Source Growth 10/17/16 00:25 Urine Culture Received Urine Clean Catch Pending Physical Exam HEENT: Normocephalic; atraumatic; no jaundice. CHEST: Resp even/unlabored. Diminished. CARDIAC: RRR ABDOMEN: Soft, nondistended, nontender; no hepatosplenomegaly; bowel sounds are present in all four quadrants. PEG tube site without redness or swelling. No drainage. Abdominal binder in place. EXTREMITIES:Generalized edema. Drsg right ankle dry and intact SENIOR WINDOWS SYSTEMS ADMINISTRATOR: Lethargic, oriented to person/place. Assessment and Plan Plan ASSESSMENT: - Dislodged PEG tube. Site had closed prior to being seen by GI. S/P EGD with peg tube placement (10/17/16)-----> Successful replacement of PEG tube with standard PEG tube. Site without redness, swelling, or drainage. Abdominal binder in place. - Dysphagia. S/P EGD with peg tube placement. Project Manager Senior following, recommends Jevity 1.5 start at 20 mls, increase by 10 mls q hr until goal rate of 55 ml/hr is reached. Will start TF. - Afib, CVA, per attending. PLAN: - Jevity 1.5 at 20cc/hr and increase by 10cc every hour until GR of 55cc/hr - Okay to d/c back to retirement - GI will sign off, please reconsult as needed - Pt seen and examined by Dr. Crowell and myself and this note is written on his behalf Roxi Sanchez Oct 18, 2016 11:53
[2016-10-18 12:40] VITALS: BP 158/69; PULSE 70; RESP 18; TEMP 98; O2SAT 98
[2016-10-18] MEDS ORDERED: CEFT250S PO (14:14)
--- NOTE | 2016-10-18 14:20 | HHI.DS ---
Discharge Summary Admission Date Oct 16, 2016 at 12:15 Admitting Diagnosis inability to eat, needs feeding tube,dementia (1) UTI (urinary tract infection) (2) Dehydration (3) Encounter for feeding tube placement Brief History Patient is a 86 year old female resident of [facility] who was admitted to hospital after pulling Peg tube out. She was also found to have a UTI. CBC/BMP: 10/18/16 1037 10/18/16 1037 Significant Findings Laboratory Tests Test 10/16/16 10/17/16 10/17/16 10/17/16 11:45 00:25 07:50 07:55 White Blood Count 12.2 TH/MM3 (4.0-11.0) Red Blood Count 3.33 MIL/MM3 3.39 MIL/MM3 (4.00-5.30) (4.00-5.30) Hemoglobin 9.6 GM/DL 10.0 GM/DL (11.6-15.3) (11.6-15.3) Hematocrit 31.2 % 31.7 % (35.0-46.0) (35.0-46.0) Mean Corpuscular Hemoglobin 30.7 % 31.6 % Concent (32.0-36.0) (32.0-36.0) Red Cell Distribution Width 17.5 % 18.1 % (11.6-17.2) (11.6-17.2) Monocytes (%) (Auto) 9.6 % (0.0-8.0) 10.4 % (0.0-8.0) Eosinophils (%) (Auto) 5.3 % (0.0-4.0) 5.3 % (0.0-4.0) Neutrophils # (Auto) 8.6 TH/MM3 (1.8-7.7) Monocytes # (Auto) 1.2 TH/MM3 1.1 TH/MM3 (0-0.9) (0-0.9) Eosinophils # (Auto) 0.6 TH/MM3 0.5 TH/MM3 (0-0.4) (0-0.4) Chloride Level 110 MEQ/L 112 MEQ/L (98-107) (98-107) Blood Urea Nitrogen 34 MG/DL (7-18) 24 MG/DL (7-18) Urine Turbidity CLOUDY (CLEAR) Urine Nitrite POS (NEG) Urine Leukocyte Esterase LARGE (NEG) Urine WBC 93 /hpf (0-5) Urine WBC Clumps MANY (NONE) Urine Bacteria MANY /hpf (NONE) Urine Mucus MOD /lpf (OCC) Creatinine 0.46 MG/DL (0.50-1.00) Free Triiodothyronine (T3) 0.98 PG/ML pg/dL (2.18-3.98) Test 10/18/16 10:37 Red Blood Count 3.39 MIL/MM3 (4.00-5.30) Hemoglobin 10.0 GM/DL (11.6-15.3) Hematocrit 31.9 % (35.0-46.0) Mean Corpuscular Hemoglobin 31.2 % Concent (32.0-36.0) Red Cell Distribution Width 17.9 % (11.6-17.2) Chloride Level 114 MEQ/L (98-107) Blood Urea Nitrogen 19 MG/DL (7-18) Random Glucose 117 MG/DL (74-106) PE at Discharge GENERAL: Combative SKIN: Warm and dry. HEAD: Normocephalic. EYES: No scleral icterus. No injection or drainage. NECK: Supple, trachea midline. No JVD or lymphadenopathy. CARDIOVASCULAR: Regular rate and rhythm without murmurs, gallops, or rubs. RESPIRATORY: Breath sounds equal bilaterally. No accessory muscle use. GASTROINTESTINAL: Abdomen soft, non-tender, nondistended. MUSCULOSKELETAL: No cyanosis, or edema. BACK: Nontender without obvious deformity. No CVA tenderness. Hospital Course Patient is a 86 [facility] female [facility] who was admitted to hospital after pulling Peg tube out. She was also found to have a UTI. Patient tolerated having PEG tube replaced without difficulties. Tube feeding Jevity 1.5 start at 20 mls, increase by 10 mls q hr until goal rate of 55 ml/hr is reached. Patient is also being treated for a UTI and culture is still pending. This will need to be followed. Pt Condition on Discharge: Fair Discharge Disposition: Discharge to SNF Discharge Instructions DIET: Follow Instructions for: As Tolerated, No Restrictions Additional Diet Instructions: Tube feeding Jevity 1.5 start at 20 mls, increase by 10 mls q hr until goal rate of 55 ml/hr is reache Activities you can perform: Regular-No Restrictions Follow up Referrals: PCP Follow-up New Medications: Cefuroxime Liq (Ceftin Liq) 250 Mg/5 Ml Susp 250 MG PO BID Infection Days 5 Ref 0 ML Continued Medications: Acetaminophen (Tylenol) 325 Mg Tab 650 MG PEG Q4H PRN PAIN/TEMP 100 OR ABOVE Ref 0 TAB Albuterol Neb (Albuterol Neb) 0.63 Mg/3 Ml Neb 0.63 MG NEB Q6HR NEB PRN SHORTNESS OF BREATH #25 Ref 0 NEBULE Ascorbic Acid (Ascorbic Acid) 500 Mg Tab 500 MG PEG BID Nutritional Supplement TAB Bisacodyl Supp (Dulcolax Supp) 10 Mg Supp 10 MG RECTAL DAILY PRN IF NO RESULTS FROM MILK OF MAG Ref 0 SUPP Clopidogrel (Plavix) 75 Mg Tab 75 MG PEG DAILY Blood Clot Prevention #[address] (Depakote DR) 250 Mg Tabdr 250 MG PEG BID Control Seizures #60 Ref 0 TAB Lactic Acid (Ammonium Lactate) (Ammonium Lactate) 12% Lotn 1 APPLIC TOPICAL BID Apply to whole body every day and evening shift #225 Ref 0 ML Lansoprazole ODT (Prevacid Solutab ODT) 30 Mg Tab 30 MG PEG DAILY Reflux #30 TAB Levothyroxine (Synthroid) 100 Mcg Tab 100 MCG PEG DAILY@0600 Thyroid #30 TAB Magnesium Citrate Liq (Citroma Liq) 300 Ml Liq 296 ML PEG IN THE AM PRN NO RESULTS FROM ENEMA #1 Ref 0 BOTTLE Magnesium Hydroxide Liq (Milk of Magnesia Liq) 400 Mg/5 Ml Susp 30 ML PEG HS PRN IF NO BM IN 3 DAYS #1 Ref 0 BOTTLE Metoprolol Tartrate (Lopressor) 50 Mg Tab 50 MG PEG BID Blood Pressure Management #60 TAB Mirtazapine (Mirtazapine) 15 Mg Tab 15 MG PEG HS mood #30 TAB Multiple Vitamin (Thera/Beta-Carotene) 1 Tab Tab 1 TAB PEG DAILY Nutritional Supplement #30 TAB Pravastatin (Pravastatin) 10 Mg Tab 10 MG PEG HS Cholesterol Management #30 TAB Sodium Phosphates (Enema Disposable) 1 Karoline Karoline 1 APPLIC RECTAL DAILY PRN IF NO RESULTS FROM DULCOLAX Spironolactone (Aldactone) 25 Mg Tab 25 MG PEG DAILY Blood Pressure Management #30 TAB Discontinued Medications: Levothyroxine (Synthroid) 88 Mcg Tab 88 MCG PEG DAILY@0600 Thyroid #30 TAB Lorazepam (Ativan) 0.5 Mg Tab 0.5 MG PEG Q4HR PRN ANXIETY AND/OR AGITATION Ref 0 TAB Additional Information Patient is being treated for UTI but culture is pending will need to be followed. Patient also must wear binder at all times to prevent PEG from being pulled out. Patient also has pressure ulcer please consult Dr. Mark to follow and manage. Elyssa Anglin Oct 18, 2016 14:20
[2016-10-18 15:27] VITALS: BP 173/77; PULSE 81; RESP 16; TEMP 98.1; O2SAT 97
== END 2016-10-18 17:09 ==
LOC: NEDAMB 09:41 → NEDA 12:15 → NEPFCDU 16:25
PROVIDERS: ADMIT Family Medicine; ATTEND Family Medicine
DX: Z43.1 Encounter for attention to gastrostomy (principal); G30.8 Other Alzheimer's disease; F02.81 Dementia in other diseases classified elsewhere, unspecified severity, with behavioral disturbance; N39.0 Urinary tract infection, site not specified; E86.0 Dehydration; L89.159 Pressure ulcer of sacral region, unspecified stage; R13.10 Dysphagia, unspecified; I10 Essential (primary) hypertension; I48.91 Unspecified atrial fibrillation; I20.9 Angina pectoris, unspecified; E03.9 Hypothyroidism, unspecified; K21.9 Gastro-esophageal reflux disease without esophagitis; F31.9 Bipolar disorder, unspecified; H91.90 Unspecified hearing loss, unspecified ear; F20.9 Schizophrenia, unspecified; M19.90 Unspecified osteoarthritis, unspecified site; Z86.73 Personal history of transient ischemic attack (TIA), and cerebral infarction without residual deficits; Z79.899 Other long term (current) drug therapy; Z23 Encounter for immunization
CPT/HCPCS: 00740; 43246; 80048; 81001; 83735; 84100; 84481; 85025; 85027; 85610; 85730; 87077; 87086; 87186; 90732; 93005; 99285; G0378; J0690; J0696; J1650; J3480

== ENCOUNTER 2017-01-01 23:38 | Emergency (ER) | payer MEDICARE, OTHER ==
[~2017-01-01] VITALS: Ht 162.6 cm; Wt 50.0 kg
[~2017-01-01 23:38] MED LIST changes: +ASCO500T PEG; -ASPI1TAB91 PO; +CEFT250S PO; +CITRSOL4 PEG; +DEPA250T2 PEG; -DIVA125C PEG; -LORA-392 PEG; +MILKSUS PEG; -SYNT88TA PEG; +TYLE325T PEG
[2017-01-01] MEDS ORDERED: IOHEXOL 350 MG/ML 50 ML BTL (for RAD DIAG) G-TUBE ONE (23:39)
[2017-01-02 02:13] VITALS: BP 205/89; PULSE 77; RESP 20; O2SAT 94
--- NOTE | 2017-01-02 03:00 | PD ---
HPI Chief Complaint: GI Complaint Time Seen by Provider: 23:53 Travel History International Travel<30 days: No Contact w/Intl Traveler<30days: No Traveled to known affect area: No History of Present Illness HPI SENT BY [facility] DUE TO DISPLACED PEG TUBE, [facility] UNAWARE OF SIZE OF TUBE, AND JUST SENT PATIENT FOR REPLACEMENT PROCEDURE...PATIENT HAS HAD PEG TUBE OUT FOR SEVERAL HOURS PRIOR TO ARRIVAL. PER EMS NO OTHER COMPLAINT AND OTHERWISE ACTING HER NORMAL SELF PFSH Past Medical History Arthritis: Yes Asthma: No Atrial Fibrillation: Yes Autoimmune Disease: No Blood Disorders: No Bipolar Disorder: Yes Anxiety: No Depression: No Heart Rhythm Problems: No Cancer: No Cardiovascular Problems: Yes (angina) High Cholesterol: No Chemotherapy: No Chest Pain: No Congestive Heart Failure: No COPD: No Cerebrovascular Accident: Yes Diabetes: No Diminished Hearing: Yes (L [place]) Endocrine: No Gastrointestinal Disorders: Yes GERD: Yes Glaucoma: No Genitourinary: Yes (woods) Headaches: No Hepatitis: No Hiatal Hernia: Yes (STRETCHED ESOPHAGUS HIATAL HERNIA) Hypertension: Yes Immune Disorder: No Kidney Stones: No Musculoskeletal: Yes (left leg bone problems ) Neurologic: Yes (contracted) Psychiatric: No Reproductive: No Respiratory: No Immunizations Current: No Myocardial Infarction: No Radiation Therapy: No Renal Failure: No Schizophrenia: Yes Seizures: No Sickle Cell Disease: No Sleep Apnea: No Thyroid Disease: Yes (hypo) Ulcer: No PNEUMOCCOCAL Vaccine (Year): 3 Menopausal: Yes Past Surgical History Abdominal Surgery: Yes (HERNIA REPAIR) AICD: No Appendectomy: Yes Body Medical Devices: WALKER Cardiac Surgery: No Cholecystectomy: Yes Endocrine Surgery: Yes (THYROID (1952)) Eye Surgery: Yes (CATARACTS) Gynecologic Surgery: Yes (HYSTERECTOMY) Hysterectomy: Yes Neurologic Surgery: No Pacemaker: No Thoracic Surgery: No Other Surgery: Yes (PARTIAL THROIDISM) Social History Alcohol Use: Yes (OCCAS) Tobacco Use: No Substance Use: No Allergies-Medications (Allergen,Severity, Reaction): Coded Allergies: Sulfa (Sulfonamide Antibiotics) (Unverified Allergy, Unknown, 11/20/16) celecoxib (Unverified Allergy, Unknown, 11/20/16) haloperidol (Unverified Allergy, Unknown, 11/20/16) risperidone (Unverified Allergy, Unknown, 11/20/16) aspirin (Unverified Adverse Reaction, Intermediate, NOSE BLEEDS, 11/20/16) chlorpromazine (Unverified Adverse Reaction, Intermediate, CRAMPS, 11/20/16 ) *MDRO Multi-Drug Resistant Organism (Verified Adverse Reaction, Unknown, ESBL, 10/22/16) ESBL (urine) 09/05/16, 10/17/16 Reported Meds & Prescriptions Reported Meds & Active Scripts Active Ceftin Liq (Cefuroxime Axetil) 250 Mg/5 Ml Susp 250 Mg PO BID 5 Days Aldactone (Spironolactone) 25 Mg Tab 25 Mg PEG DAILY Pravastatin 10 Mg Tab 10 Mg PEG HS Thera/Beta-Carotene (Multiple Vitamin) 1 Tab Tab 1 Tab PEG DAILY Mirtazapine 15 Mg Tab 15 Mg PEG HS Lopressor (Metoprolol Tartrate) 50 Mg Tab 50 Mg PEG BID Synthroid (Levothyroxine Sodium) 100 Mcg Tab 100 Mcg PEG DAILY@0600 Prevacid Solutab ODT (Lansoprazole) 30 Mg Tab 30 Mg PEG DAILY Plavix (Clopidogrel Bisulfate) 75 Mg Tab 75 Mg PEG DAILY Reported Milk of Magnesia Liq (Magnesium Hydroxide) 400 Mg/5 Ml Susp 30 Ml PEG HS PRN Citroma Liq (Magnesium Citrate) 300 Ml Liq 296 Ml PEG IN THE AM PRN Tylenol (Acetaminophen) 325 Mg Tab 650 Mg PEG Q4H PRN Depakote DR (Divalproex Sodium) 250 Mg Tabdr 250 Mg PEG BID Ascorbic Acid 500 Mg Tab 500 Mg PEG BID Ammonium Lactate (Lactic Acid (Ammonium Lactate)) 12% Lotn 1 Applic TOPICAL BID Apply to whole body every day and evening shift Enema Disposable (Sodium Phosphates) 1 Karoline Karoline 1 Applic RECTAL DAILY PRN Dulcolax Supp (Bisacodyl) 10 Mg Supp 10 Mg RECTAL DAILY PRN Albuterol Neb (Albuterol Sulfate) 0.63 Mg/3 Ml Neb 0.63 Mg NEB Q6HR NEB PRN Review of Systems ROS Limitations: Altered Mental Status (DUE TO DEMENTIA) Except as stated in HPI: all other systems reviewed are Neg Physical Exam Narrative GENERAL: SKIN: Warm and dry. HEAD: Atraumatic. Normocephalic. EYES: Pupils equal and round. No scleral icterus. No injection or drainage. ENT: No nasal bleeding or discharge. Mucous membranes pink and moist. NECK: Trachea midline. No JVD. CARDIOVASCULAR: Regular rate and rhythm. RESPIRATORY: No accessory muscle use. Clear to auscultation. Breath sounds equal bilaterally. GASTROINTESTINAL: Abdomen soft, non-tender, nondistended. PATIENT HAS STOMA IN PLACE HOWEVER, SHE KEPT ATTEMPTING TO PULL AT MY HAND DURING ATTEMPT TO REPLACE , NO ACTIVE BLEEDING. MUSCULOSKELETAL: Extremities without clubbing, cyanosis, or edema. No obvious deformities. NEUROLOGICAL: Awake and CONFUSED. No obvious cranial nerve deficits. Motor grossly within normal limits. Five out of 5 muscle strength in the arms and legs. Normal speech. PSYCHIATRIC: Appropriate mood and affect; insight and judgment normal. Data Data Last Documented VS Vital Signs Date Time Temp Pulse Resp B/P (MAP) Pulse Ox O2 Delivery O2 Flow Rate FiO2 01/02/17 17:25 01/02/17 14:16 83 16 96 Room Air Orders Orders Lorazepam Inj (Ativan Inj) (01/02/17 08:45) Diphenhydramine Inj (Benadryl Inj) (01/02/17 08:45) Fentanyl Inj (Fentanyl Inj) (01/02/17 11:34) (Hub Use Only)Inp Phy Cons/Ref (01/02/17 ) Iohexol 350 Inj (Omnipaque 350 Inj) (01/01/17 23:39) Gastrostomy Tube Placement (01/02/17 ) MDM Medical Decision Making Medical Screen Exam Complete: Yes Emergency Medical Condition: Yes Medical Record Reviewed: Yes Differential Diagnosis N/A Narrative Course ATTEMPTED TO REPLACE 18FR G TUBE, HOWEVER STOMA TOO SMALL, AND PATIENT WAS PULLING AT SITE AND WAS DIFFICULT TO PLACE IT (PATIENT NORMALLY HAS AN ABD BINDER TO KEEP FROM PULLING TUBE) TWO ATTEMPTS BUT UNABLE TO ADVANCE TUBE, CONTACTED IR FOR FORMAL REPLACEMENT....PATIENT SIGNED OUT PENDING IR AND DISCHARGE AFTER REPLACEMENT. Diagnosis Primary Impression: FEEDINIG TUBE REPLACEMENT Patient Instructions: General Instructions, How to Use and Care for Your PEG Tube (ED) Disposition: 01 DISCHARGE HOME Condition: Stable Adolfo Euceda MD Jan 02, 2017 03:00
[2017-01-02 03:57] VITALS: BP 201/90; PULSE 78; RESP 16; O2SAT 96
[2017-01-02 05:28] VITALS: BP 181/90; PULSE 72; RESP 16; O2SAT 95
[2017-01-02 07:13] VITALS: BP 179/81; PULSE 73; RESP 14; O2SAT 92
[2017-01-02] MEDS ORDERED: LORazepam 2 MG/ML VIAL IM ONE (08:45)
[2017-01-02] MEDS ORDERED: diphenhydrAMINE HCL 50 MG/ML VIAL IM ONE (08:45)
--- NOTE | 2017-01-02 12:37 | PD ---
Data Data Last Documented VS Vital Signs Date Time Temp Pulse Resp B/P (MAP) Pulse Ox O2 Delivery O2 Flow Rate FiO2 01/02/17 07:13 73 14 179/81 (113) 92 Room Air Orders Orders Invasive Rad Dept Consult (01/02/17 ) Lorazepam Inj (Ativan Inj) (01/02/17 08:45) Diphenhydramine Inj (Benadryl Inj) (01/02/17 08:45) Fentanyl Inj (Fentanyl Inj) (01/02/17 11:34) MDM Supervised Visit with ISHMAEL: No Narrative Course PEG tube has been successfully replaced by interventional radiology. The patient will be discharged back to her group home. Diagnosis Primary Impression: FEEDINIG TUBE REPLACEMENT Patient Instructions: General Instructions, How to Use and Care for Your PEG Tube (ED) Disposition: 03 DISCHARGE TO SNF Condition: Stable Jackie Arias MD Jan 02, 2017 12:37
[2017-01-02 14:16] VITALS: BP 181/86; PULSE 83; RESP 16; O2SAT 96
--- NOTE | 2017-01-02 15:29 | RADRPT ---
EXAM DATE/TIME: 01/02/2017 11:36 [facility] COMPARISON: No previous studies available for comparison. INDICATIONS : Patient with history of CVA in need of G-tube replacement. MEDICAL HISTORY : A-Fib, Angina, CVA, GERD, Stretched esophagus, Hiatal hernia, HTN, Contracted, Hypothyroidism SURGICAL HISTORY : Hernia reapair, Appendectomy, Cholecystectomy, Hysterectomy, PEG tube placement ENCOUNTER: Initial ACUITY: 1 day PAIN SCORE: Nonresponsive. FLUORO TIME: 2.2 minutes IMAGE SERIES: 1 SEDATION TIME: 30 minutes CONTRAST: 20 cc Omnipaque (iohexol) 350 MEDICATION(S): 1.) 100 mcg fentanyl (Sublimaze) IV 2.) 2 mg lorazepam (Ativan) IV DEVICE(S): 1.) 18 Fr gastrostomy tube PROCEDURE : 1. Fluoroscopically guided gastrostomy tube placement. 2. Conscious sedation with continuous EKG and oximetry monitoring. The risks, benefits and alternatives to the procedure were explained and verbal and written consent w as obtained. The site was prepped in sterile fashion. Full sterile technique was used, including ca p, mask, sterile gloves and gown and a large sterile sheet. Hand hygiene and 2% chlorhexidine and/or betadine/alcohol prep was utilized per protocol for cutaneous antisepsis. The skin and subcutaneous tissues were infiltrated with local anesthetic solution. Fluoroscopy was used to jeri the position of the liver.. The stomach was insufflated with room air. Three percutaneous fasteners were placed to secure the anterior gastric wall. A small incision was made between the fasteners. The stomach was accessed with an 18 gauge needle. A n 0.035 wire was advanced into the small bowel. The tract was dilated. The gastrostomy tube was int roduced through a peel-away sheath. The position was confirmed with an injection of contrast. Conscious sedation was performed with the prescribed dosages and duration as above in the presence of an independent trained radiology nurse to assist in the monitoring of the patient. EKG and oximetry remained stable throughout the procedure. The patient tolerated the procedure well and there were n o complications. The patient was sent to post anesthesia recovery in stable condition. CONCLUSION: Uncomplicated gastrostomy tube placement as above. Marcos Easton MD on January 02, 2017 at 15:22 Board Certified Radiologist. This report was verified electronically.
== END 2017-01-02 17:26 ==
LOC: NEPC 23:38
DX: Z43.1 Encounter for attention to gastrostomy (principal); I48.91 Unspecified atrial fibrillation; I10 Essential (primary) hypertension; K21.9 Gastro-esophageal reflux disease without esophagitis; K44.9 Diaphragmatic hernia without obstruction or gangrene; E03.9 Hypothyroidism, unspecified
CPT/HCPCS: 49440; 96372; 99152; 99153; 99284; C1769; J1200; J2060; J3010; Q9967

== ENCOUNTER 2017-06-01 01:53 | Inpatient (IN) | payer MEDICARE, OTHER ==
[2017-06-01] VITALS (7 sets, daily range): BP systolic 132–166; BP diastolic 59–83; PULSE 58–79; RESP 16–18; TEMP 97–98.2; O2SAT 92–97
--- NOTE | 2017-06-01 02:24 | RADRPT ---
EXAM DATE/TIME: 06/01/2017 02:03 [facility] COMPARISON: No previous studies available for comparison. INDICATIONS : Cough MEDICAL HISTORY : A-Fib, Angina, CVA, GERD, Stretched esophagus, Hiatal hernia, HTN, Contracted, Hypothyroidism SURGICAL HISTORY : Hernia repair, Appendectomy, Cholecystectomy, Hysterectomy, PEG tube ENCOUNTER: Initial ACUITY: 1 day PAIN SCORE: Non-responsive. LOCATION: Bilateral chest FINDINGS: A single view of the chest demonstrates the lungs to be symmetrically aerated without evidence of mas s, infiltrate or effusion. The cardiomediastinal contours are unremarkable. Osseous structures are intact. CONCLUSION: No acute abnormality demonstrated. Werner Lowery MD on June 01, 2017 at 2:22 Board Certified Radiologist. This report was verified electronically.
[2017-06-01 03:26] LABS: BACTERIA, URINE MANY /hpf; BILIRUBIN, URINE NEG (NEG); BLOOD, URINE MOD (NEG); GLUCOSE,URINE NEG (NEG); KETONE, URINE TRACE mg/dL (NEG); NITRITE,URINE POS (NEG); PH, URINE 6.5 (5.0-8.5); URINE COLOR LIGHT-RED (YELLW/STRAW); URINE LEUKOCYTE ESTERASE LARGE (NEG)
--- NOTE | 2017-06-01 03:51 | PD ---
HPI Chief Complaint: Respiratory Symptoms Time Seen by Provider: 01:55 Travel History International Travel<30 days: No Contact w/Intl Traveler<30days: No Traveled to known affect area: No History of Present Illness HPI Patient is an 86-year-old [place] she has had a rattling cough and they sent her to the ER wearing about respiratory distress. Apparently she is on a course of by mouth antibiotics for a possible pneumonia she has stage IV decubiti sacral and she has an indwelling Woods to prevent urine saturating her scanning macerating her ulcer patient is demented and only has a rattling cough but is nonverbal she is contracted lying sideways on her right side down after 30 minutes her son arrives to provide more history and he says that she has been having a rattling cough she's had UTIs in the past and he is worried she may have a UTI again he said she is acting her baseline, : which is demented and nonverbal.. but the rattling cough he says is new in last few days PFSH Past Medical History Arthritis: Yes Asthma: No Atrial Fibrillation: Yes Autoimmune Disease: No Blood Disorders: No Bipolar Disorder: Yes Anxiety: No Depression: No Heart Rhythm Problems: No Cancer: No Cardiovascular Problems: Yes (angina) High Cholesterol: No Chemotherapy: No Chest Pain: No Congestive Heart Failure: No COPD: No Cerebrovascular Accident: Yes Diabetes: No Diminished Hearing: Yes (L E[place]) Endocrine: No Gastrointestinal Disorders: Yes GERD: Yes Glaucoma: No Genitourinary: Yes (woods) Headaches: No Hepatitis: No Hiatal Hernia: Yes (STRETCHED ESOPHAGUS HIATAL HERNIA) Hypertension: Yes Immune Disorder: No Kidney Stones: No Musculoskeletal: Yes (left leg bone problems ) Neurologic: Yes (contracted) Psychiatric: Yes Reproductive: No Respiratory: No Immunizations Current: No Myocardial Infarction: No Radiation Therapy: No Renal Failure: No Schizophrenia: Yes Seizures: No Sickle Cell Disease: No Sleep Apnea: No Thyroid Disease: Yes (hypo) Ulcer: No PNEUMOCCOCAL Vaccine (Year): 3 Menopausal: Yes Past Surgical History Abdominal Surgery: Yes (HERNIA REPAIR, PEG TUBE) AICD: No Appendectomy: Yes Body Medical Devices: WALKER Cardiac Surgery: No Cholecystectomy: Yes Endocrine Surgery: Yes (THYROID (1952)) Eye Surgery: Yes (CATARACTS) Gynecologic Surgery: Yes (HYSTERECTOMY) Hysterectomy: Yes Neurologic Surgery: No Pacemaker: No Thoracic Surgery: No Other Surgery: Yes (PARTIAL THROIDISM) Social History Alcohol Use: No Tobacco Use: No Substance Use: No Allergies-Medications (Allergen,Severity, Reaction): Coded Allergies: Sulfa (Sulfonamide Antibiotics) (Unverified Allergy, Unknown, 06/01/17) celecoxib (Unverified Allergy, Unknown, 06/01/17) haloperidol (Unverified Allergy, Unknown, 06/01/17) risperidone (Unverified Allergy, Unknown, 06/01/17) aspirin (Unverified Adverse Reaction, Intermediate, NOSE BLEEDS, 06/01/17) chlorpromazine (Unverified Adverse Reaction, Intermediate, CRAMPS, 06/01/17 ) *MDRO Multi-Drug Resistant Organism (Verified Adverse Reaction, Unknown, ESBL, 06/01/17) ESBL (urine) 09/05/16, 10/17/16 Reported Meds & Prescriptions Reported Meds & Active Scripts Active Aldactone (Spironolactone) 25 Mg Tab 25 Mg PEG DAILY Pravastatin 10 Mg Tab 10 Mg PEG HS Thera/Beta-Carotene (Multiple Vitamin) 1 Tab Tab 1 Tab PEG DAILY Mirtazapine 15 Mg Tab 15 Mg PEG HS Lopressor (Metoprolol Tartrate) 50 Mg Tab 50 Mg PEG BID Synthroid (Levothyroxine Sodium) 100 Mcg Tab 100 Mcg PEG DAILY@0600 Prevacid Solutab ODT (Lansoprazole) 30 Mg Tab 30 Mg PEG DAILY Plavix (Clopidogrel Bisulfate) 75 Mg Tab 75 Mg PEG DAILY Reported Milk of Magnesia Liq (Magnesium Hydroxide) 400 Mg/5 Ml Susp 30 Ml PEG HS PRN Tylenol (Acetaminophen) 325 Mg Tab 650 Mg PEG Q4H PRN Depakote DR (Divalproex Sodium) 250 Mg Tabdr 250 Mg PEG BID Ascorbic Acid 500 Mg Tab 500 Mg PEG BID Ammonium Lactate (Lactic Acid (Ammonium Lactate)) 12% Lotn 1 Applic TOPICAL BID Apply to whole body every day and evening shift Dulcolax Supp (Bisacodyl) 10 Mg Supp 10 Mg RECTAL DAILY PRN Albuterol Neb (Albuterol Sulfate) 0.63 Mg/3 Ml Neb 0.63 Mg NEB Q6HR NEB PRN Review of Systems ROS Limitations: Altered Mental Status, Other: (dementia) Physical Exam Narrative GENERAL: Patient is nonverbal lying sideways in the bed contracted indwelling Woods SKIN: Warm and dry. HEAD: Atraumatic. Normocephalic. EYES: Pupils equal and round. No scleral icterus. No injection or drainage. ENT: [place] is dry dry tongue . NECK: Trachea midline. No JVD. CARDIOVASCULAR: Regular rate and rhythm. RESPIRATORY: No accessory muscle use. She has a loud rattling cough GASTROINTESTINAL: Abdomen soft, non-tender, nondistended. Hepatic and splenic. NEUROLOGICAL: Demented nonverbal EXTREMITIES: contracted legs laying right side down Data Data Last Documented VS Orders Orders Complete Blood Count With Diff (06/01/17 01:55) Comprehensive Metabolic Panel (06/01/17 01:55) Ckmb (Isoenzyme) Profile (06/01/17 01:55) Troponin I (06/01/17 01:55) Lipase (06/01/17 01:55) Urinalysis - C+S If Indicated (06/01/17 01:55) Chest, Single Ap (06/01/17 01:55) Urine Culture (06/01/17 02:10) Admit Order (Ed Use Only) (06/01/17 05:27) Labs Laboratory Tests Test 06/01/17 02:10 06/01/17 04:51 Urine Color LIGHT-RED Urine Turbidity CLOUDY Urine pH 6.5 Urine Specific [place] 1.012 Urine Protein 300 mg/dL Urine Glucose (UA) NEG mg/dL Urine Ketones TRACE mg/dL Urine Occult Blood MOD Urine Nitrite POS Urine Bilirubin NEG Urine Urobilinogen LESS THAN 2.0 MG/DL Urine Leukocyte Esterase LARGE Urine RBC 54 /hpf Urine WBC /hpf Urine Bacteria MANY /hpf Microscopic Urinalysis Comment CULTURE INDICATED Blood Urea Nitrogen 17 MG/DL Creatinine 0.65 MG/DL Random Glucose 134 MG/DL Total Protein 7.0 GM/DL Albumin 2.1 GM/DL Calcium Level 8.7 MG/DL Alkaline Phosphatase 67 U/L Aspartate Amino Transf (AST/SGOT) 39 U/L Alanine Aminotransferase (ALT/SGPT) 9 U/L Total Bilirubin 0.4 MG/DL Sodium Level 148 MEQ/L Potassium Level 4.6 MEQ/L Chloride Level 113 MEQ/L Carbon Dioxide Level 32.4 MEQ/L Anion Gap 3 MEQ/L Estimat Glomerular Filtration Rate 87 ML/MIN Total Creatine Kinase 98 U/L Troponin I LESS THAN 0.02 NG/ML Prealbumin 9 MG/DL Lipase 47 U/L White Blood Count 10.7 TH/MM3 Red Blood Count 4.11 MIL/MM3 Hemoglobin 12.0 GM/DL Hematocrit 36.7 % Mean Corpuscular Volume 89.4 FL Mean Corpuscular Hemoglobin 29.2 PG Mean Corpuscular Hemoglobin Concent 32.7 % Red Cell Distribution Width 17.4 % Platelet Count 312 TH/MM3 Mean Platelet Volume 7.4 FL Neutrophils (%) (Auto) 62.3 % Lymphocytes (%) (Auto) 18.6 % Monocytes (%) (Auto) 15.0 % Eosinophils (%) (Auto) 3.2 % Basophils (%) (Auto) 0.9 % Neutrophils # (Auto) 6.7 TH/MM3 Lymphocytes # (Auto) 2.0 TH/MM3 Monocytes # (Auto) 1.6 TH/MM3 Eosinophils # (Auto) 0.3 TH/MM3 Basophils # (Auto) 0.1 TH/MM3 CBC Comment AUTO DIFF Differential Total Cells Counted 100 Neutrophils % (Manual) 67 % Band Neutrophils % 1 % Lymphocytes % 21 % Monocytes % 8 % Eosinophils % 2 % Neutrophils # (Manual) 7.4 TH/MM3 Promyelocytes 1 % Differential Comment FINAL DIFF MANUAL Platelet Estimate NORMAL Platelet Morphology Comment NORMAL Red Cell Morphology Comment NORMAL MDM Medical Decision Making Medical Screen Exam Complete: Yes Emergency Medical Condition: Yes Differential Diagnosis uti sepsis vs PNA sepsis vs viral uri weakess Narrative Course Levaquin for UTI and admit for further eval Diagnosis Primary Impression: UTI (urinary tract infection) Qualified Codes: T83.511A - Infection and inflammatory reaction due to indwelling urethral catheter, initial encounter; N39.0 - Urinary tract infection , site not specified Admitting Information Admitting Physician Requests: Admit Jose L Jiang MD Jun 01, 2017 03:51
[2017-06-01 04:42] LABS: ALBUMIN 2.1 GM/DL (3.4-5.0); ALKALINE PHOSPHATASE 67 U/L (45-117); ALT (GPT) 9 U/L (10-53); AST (GOT) 39 U/L (15-37); BICARBONATE 32.4 MEQ/L (21.0-32.0); BLOOD UREA NITROGEN 17 MG/DL (7-18); CALCIUM 8.7 MG/DL (8.5-10.1); CHLORIDE 113 MEQ/L (98-107); CREATININE 0.65 MG/DL (0.50-1.00); GLOMERULAR FILTRATION RATE 87 ML/MIN (>89); GLUCOSE,RANDOM 134 MG/DL (74-106); SODIUM (NA) 148 MEQ/L (136-145); TOTAL BILIRUBIN ADULT 0.4 MG/DL (0.2-1.0); TROPONIN I LESS THAN 0.02 NG/ML (0.02-0.05)
[2017-06-01 05:02] LABS: AUTOMATED NEUTROPHIL # 6.7 TH/MM3 (1.8-7.7); BASOPHIL # 0.1 TH/MM3 (0-0.2); BASOPHIL % 0.9 % (0.0-2.0); EOSINOPHIL # 0.3 TH/MM3 (0-0.4); EOSINOPHIL % 3.2 % (0.0-4.0); HEMATOCRIT 36.7 % (35.0-46.0); LYMPH % 18.6 % (9.0-44.0); MEAN CELL VOLUME 89.4 FL (80.0-100.0); MEAN CORPUSCULAR HEMOGLOBIN 29.2 PG (27.0-34.0); MEAN CORPUSCULAR HGB CONC 32.7 % (32.0-36.0); MEAN PLATELET VOLUME 7.4 FL (7.0-11.0); MONOCYTE # 1.6 TH/MM3 (0-0.9); NEUT % 62.3 % (16.0-70.0); PLATELET COUNT 312 TH/MM3 (150-450); RED BLOOD COUNT 4.11 MIL/MM3 (4.00-5.30); RED CELL DISTRIBUTION WIDTH 17.4 % (11.6-17.2); WHITE BLOOD COUNT 10.7 TH/MM3 (4.0-11.0)
[2017-06-01] MEDS ORDERED: SODIUM CHLORIDE 0.9% FLUSH 10 ML FLUSH IV FLUSH PRN (06:00)
[2017-06-01] MEDS ORDERED: BISACODYL 10 MG SUPP RECTAL PRN ×2 (06:00)
[2017-06-01] MEDS ORDERED: MAGNESIUM HYDROXIDE SUSP 30 ML CUP PO PRN (06:00)
[2017-06-01] MEDS ORDERED: ACETAMINOPHEN 325 MG TAB PEG PRN (06:00)
[2017-06-01] MEDS ORDERED: NALOXONE HCL 0.4 MG/ML AMP IV PUSH PRN (06:00)
[2017-06-01 06:29] LABS: BANDS 1 % (0-6); LYMPHOCYTES 21 % (9-44); MONOCYTES 8 % (0-8); NEUTROPHIL # MANUAL DIFF 7.4 TH/MM3 (1.8-7.7); POLYS (SEG NEUTROPHILS) 67 % (16-70); PROMYELOCYTES 1 % (0-0)
[2017-06-01] MEDS ORDERED: ERTAPENEM SODIUM 1000 MG VIAL IV ONE (06:30)
[2017-06-01] MEDS: ENOXAPARIN SODIUM 30 MG/0.3 ML SYRINGE SQ SCH (06:30)
[2017-06-01] MEDS ORDERED: ACETAMINOPHEN 650 MG/20.3 ML UDC PEG PRN (06:30)
[2017-06-01] MEDS: SODIUM CHLOR 0.45% 1000 ML INJ 1,000 ML IV SCH ×2 (06:30→18:50)
[2017-06-01] MEDS: LEVOTHYROXINE SODIUM 100 MCG TAB PEG SCH (06:30)
[2017-06-01] MEDS: ASCORBIC ACID 500 MG TAB PEG SCH ×2 (09:00→23:49)
[2017-06-01] MEDS: DOCUSATE SODIUM 50 MG/SENNA 8.6 MG TAB PO SCH ×2 (09:00→23:50)
[2017-06-01] MEDS ORDERED: DIVALPROEX SODIUM DELAYED RELEASE 250 MG TAB PO SCH (09:00)
--- NOTE | 2017-06-01 11:01 | HHI.HP ---
History of Present Illness Service [facility] Primary Care Physician Nicolas Monreal, DO Admission Diagnosis UTI , Hx of ESBL e coli Diagnoses: (1) BipolarII Diagnosis: Secondary (2) Sacral decubitus ulcer Diagnosis: Secondary (3) UTI (lower urinary tract infection) Diagnosis: Principal History of Present Illness Patient presented from SNF with several day H/O cough and poor appetite. On adm she was found to have active urinary sediment and UTI, but CXR revealed no PNA. Urine culture was obtained and is pending. The patient is demented and info for adm was provided by her son. She also has poss infected sacral decub and wound care and ID have been consulted. Review of Systems ROS Limitations: Clinical Condition, Altered Mental Status, Uncooperative, Hearing Impaired, Speech Impaired Constitutional: COMPLAINS OF: Change in appetite Endocrine: DENIES: Abnorml menstrual pattern, Heat/cold intolerance, Polydipsia , Polyuria, Polyphagia Patient is unable to communicate and info was provided by her son at the bedside Past Family Social History Allergies: Coded Allergies: Sulfa (Sulfonamide Antibiotics) (Unverified Allergy, Unknown, 06/01/17) celecoxib (Unverified Allergy, Unknown, 06/01/17) haloperidol (Unverified Allergy, Unknown, 06/01/17) risperidone (Unverified Allergy, Unknown, 06/01/17) aspirin (Unverified Adverse Reaction, Intermediate, NOSE BLEEDS, 06/01/17) chlorpromazine (Unverified Adverse Reaction, Intermediate, CRAMPS, 06/01/17 ) *MDRO Multi-Drug Resistant Organism (Verified Adverse Reaction, Unknown, ESBL, 06/01/17) ESBL (urine) 09/05/16, 10/17/16 Past Medical History Recurent UTI with indwelling woods due to Stage 4 sacral decubitus; Hypothyroid on replacement; Dementia with bipolar disorder and schizophrenia; Hyperlipidemia Past Surgical History CASSIUS; PEG placement; Reported Medications Current Medications Medications (Trade) Dose Ordered Sig/Db Route Start Time Stop Time Status Last Admin (Albuterol Neb) 0.63 mg Q6HR NEB PRN NEB 06/01/17 06:00 (Vitamin C) 500 mg BID PEG 06/01/17 09:00 (Plavix) 75 mg DAILY PEG 06/01/17 09:00 (Depakote Dr) 250 mg BID PO 06/01/17 09:00 (Lac-Hydrin 12% Lotion) 1 applic BID TOPICAL 06/01/17 09:00 (Prevacid Odt) 30 mg DAILY PEG 06/01/17 09:00 (Synthroid) 100 mcg DAILY@0600 PEG 06/01/17 06:00 06/01/17 06:30 (Milk Of Magnesia Liq) 30 ml HS PRN PEG 06/01/17 06:00 (Lopressor) 50 mg BID PEG 06/01/17 09:00 (Remeron) 15 mg HS PEG 06/01/17 21:00 (Pravachol) 10 mg HS PEG 06/01/17 21:00 (Aldactone) 25 mg DAILY PEG 06/01/17 09:00 (Theragran M Tab) 1 tab DAILY PEG 06/01/17 09:00 (NS Flush) 2 ml UNSCH PRN IV FLUSH 06/01/17 06:00 (NS Flush) 2 ml BID IV FLUSH 06/01/17 09:00 (Tylenol 650 Mg/ 20 ml Liq) 650 mg Q4H PRN PEG 06/01/17 06:30 (Lovenox Inj) 30 mg Q24H SQ 06/01/17 06:00 06/01/17 06:30 (Narcan Inj) 0.4 mg UNSCH PRN IV PUSH 06/01/17 06:00 (Peggy-Colace) 1 tab BID PO 06/01/17 09:00 (Milk Of Magnesia Liq) 30 ml Q12H PRN PO 06/01/17 06:00 (Senokot) 17.2 mg Q12H PRN PO 06/01/17 06:00 (Dulcolax Supp) 10 mg DAILY PRN RECTAL 06/01/17 06:00 (Lactulose Liq) 30 ml DAILY PRN PO 06/01/17 06:00 Sodium Chloride 1,000 ml @ 84 mls/hr [id number] IV 06/01/17 06:15 06/01/17 06:30 Family History Unknown Social History Denies cigs and ETOH. [facility] in [facility] Physical Exam Vital Signs Vital Signs Date Time Temp Pulse Resp B/P (MAP) Pulse Ox O2 Delivery O2 Flow Rate FiO2 06/01/17 07:19 97.9 79 18 157/81 (106) 97 06/01/17 06:15 96 Nasal Cannula 2.00 06/01/17 04:05 60 16 166/75 (105) 97 Room Air 06/01/17 02:05 16 98 Nasal Cannula 2.00 06/01/17 01:58 97.8 68 16 140/63 (88) 97 Physical Exam GENERAL: This is a thin contracted, elderly lady lying on her side in bed. SKIN: Stage 4 sacral decub. HEAD: Atraumatic. Normocephalic. No temporal or scalp tenderness. EYES: Won't open her left eye ENT: Nose without bleeding, purulent drainage or septal hematoma. Throat without erythema, tonsillar hypertrophy or exudate. Uvula midline. Airway patent. NECK: Trachea midline. No JVD or lymphadenopathy. Supple, nontender, no meningeal signs. CARDIOVASCULAR: Regular rate and rhythm without murmurs, gallops, or rubs. RESPIRATORY: Shallow breathing but sound clear to auscultation. Breath sounds equal bilaterally. No wheezes, rales, or rhonchi. GASTROINTESTINAL: Abdomen soft, non-tender, nondistended. No hepato-splenomegaly , or palpable masses. No guarding. PEG in place MUSCULOSKELETAL: Contractures of extremities noted. NEUROLOGICAL: Awake but nonverbal and demented Laboratory Laboratory Tests Test 06/01/17 02:10 06/01/17 04:51 Urine Color LIGHT-RED Urine Turbidity CLOUDY Urine pH 6.5 Urine Specific [place] 1.012 Urine Protein 300 Urine Glucose (UA) NEG Urine Ketones TRACE Urine Occult Blood MOD Urine Nitrite POS Urine Bilirubin NEG Urine Urobilinogen LESS THAN 2.0 Urine Leukocyte Esterase LARGE Urine RBC 54 Urine WBC Urine Bacteria MANY Microscopic Urinalysis Comment CULTURE INDICATED Blood Urea Nitrogen 17 Creatinine 0.65 Random Glucose 134 Total Protein 7.0 Albumin 2.1 Calcium Level 8.7 Alkaline Phosphatase 67 Aspartate Amino Transf (AST/SGOT) 39 Alanine Aminotransferase (ALT/SGPT) 9 Total Bilirubin 0.4 Sodium Level 148 Potassium Level 4.6 Chloride Level 113 Carbon Dioxide Level 32.4 Anion Gap 3 Estimat Glomerular Filtration Rate 87 Total Creatine Kinase 98 Troponin I LESS THAN 0.02 Lipase 47 White Blood Count 10.7 Red Blood Count 4.11 Hemoglobin 12.0 Hematocrit 36.7 Mean Corpuscular Volume 89.4 Mean Corpuscular Hemoglobin 29.2 Mean Corpuscular Hemoglobin Concent 32.7 Red Cell Distribution Width 17.4 Platelet Count 312 Mean Platelet Volume 7.4 Neutrophils (%) (Auto) 62.3 Lymphocytes (%) (Auto) 18.6 Monocytes (%) (Auto) 15.0 Eosinophils (%) (Auto) 3.2 Basophils (%) (Auto) 0.9 Neutrophils # (Auto) 6.7 Lymphocytes # (Auto) 2.0 Monocytes # (Auto) 1.6 Eosinophils # (Auto) 0.3 Basophils # (Auto) 0.1 CBC Comment AUTO DIFF Differential Total Cells Counted 100 Neutrophils % (Manual) 67 Band Neutrophils % 1 Lymphocytes % 21 Monocytes % 8 Eosinophils % 2 Neutrophils # (Manual) 7.4 Promyelocytes 1 Differential Comment FINAL DIFF MANUAL Platelet Estimate NORMAL Platelet Morphology Comment NORMAL Red Cell Morphology Comment NORMAL Date/Time Source Procedure Growth Status 06/01/17 02:10 Urine Clean Catch Urine Culture Pending Worksheet Result Diagram: 06/01/17 0451 06/01/17 0210 Imaging Last Impressions Chest X-Ray 06/01/17 0155 Signed Impressions: Service Date/Time: Thursday, June 01, 2017 02:03 - CONCLUSION: No acute abnormality demonstrated. Werner Lowery MD Capdavyi VTE Risk Assessment Caprini VTE Risk Assessment: Mod/High Risk (score >= 2) Caprini Risk Assessment Model Point Value = 1 Point Value = 2 Point Value = 3 Point Value = 5 Age 41-60 Minor surgery BMI > 25 kg/m2 Swollen legs Varicose veins or History of unexplained or recurrent spontaneous Oral contraceptives or hormone replacement Sepsis (< 1 month) Serious lung disease, including pneumonia (< 1 month) Abnormal pulmonary function Acute myocardial infarction Congestive heart failure (< 1 month) History of inflammatory bowel disease Medical patient at bed rest Age 61-74 Arthroscopic surgery Major open surgery (> 45 min) Laparoscopic surgery (> 45 min) Malignancy Confined to bed (> 72 hours) Immobilizing plaster cast Central venous access Age >= 75 History of VTE Family history of VTE Factor V Leiden Prothrombin [id number] Lupus anticoagulant Anticardiolipin antibodies Elevated serum homocysteine Heparin-induced thrombocytopenia Other congenital or acquired thrombophilia Stroke (< 1 month) Elective arthroplasty Hip, pelvis, or leg fracture Acute spinal cord injury (< 1 month) Prophylaxis Regimen Total Risk Factor Score Risk Level Prophylaxis Regimen 0-1 Low Early ambulation 2 Moderate Order ONE of the following: *Sequential Compression Device (SCD) *Heparin 5000 units SQ BID 3-4 Higher Order ONE of the following medications: *Heparin 5000 units SQ TID *Enoxaparin/Lovenox 40 mg SQ daily (WT < 150 kg, CrCl > 30 mL/min) *Enoxaparin/Lovenox 30 mg SQ daily (WT < 150 kg, CrCl > 10-29 mL/min) *Enoxaparin/Lovenox 30 mg SQ BID (WT < 150 kg, CrCl > 30 mL/min) AND/OR *Sequential Compression Device (SCD) 5 or more Highest Order ONE of the following medications: *Heparin 5000 units SQ TID (Preferred with Epidurals) *Enoxaparin/Lovenox 40 mg SQ daily (WT < 150 kg, CrCl > 30 mL/min) *Enoxaparin/Lovenox 30 mg SQ daily (WT < 150 kg, CrCl > 10-29 mL/min) *Enoxaparin/Lovenox 30 mg SQ BID (WT < 150 kg, CrCl > 30 mL/min) AND *Sequential Compression Device (SCD) Assessment and Plan Problem List: (1) Alzheimer disease ICD Codes: G30.9 - Alzheimer's disease, unspecified Status: Chronic Plan: Cont meds from outpatient (2) UTI (urinary tract infection) ICD Codes: N39.0 - Urinary tract infection, site not specified Status: Acute Plan: Antibiotics as ordered and F/U ID consult (3) Sacral decubitus ulcer ICD Codes: L89.159 - Pressure ulcer of sacral region, unspecified stage Status: Acute Plan: Consult wound care nurse (4) BipolarII Status: Chronic Plan: Cont meds from outpatient Assessment and Plan F/U wound care and ID recommendations. Cont antibiotics and F/U urine culture. Cont meds from SNF. Discussed Condition With Patient's son Discharge Planning Back to SNF Problem Qualifiers (1) Sacral decubitus ulcer: Qualified Codes: L89.154 - Pressure ulcer of sacral region, stage 4 (2) Alzheimer disease: (3) UTI (urinary tract infection): Ethan Logan Jun 01, 2017 11:01
[2017-06-01] MEDS ORDERED: ERTAPENEM 1,000 MG/NS 100 ML IV ONE ×2 (13:15)
[2017-06-01] MEDS: CLOPIDOGREL 75 MG TAB PEG SCH (13:32)
[2017-06-01] MEDS: LANSOPRAZOLE SOLUTAB 30 MG TAB PEG SCH (13:32)
[2017-06-01] MEDS: SODIUM CHLORIDE 0.9% FLUSH 10 ML FLUSH IV FLUSH SCH ×2 (13:32→19:39)
[2017-06-01] MEDS: METOPROLOL TARTRATE 50 MG TAB PEG SCH ×2 (13:33→23:50)
[2017-06-01] MEDS: MULTIVITAMINS/MINERALS THERAPEUTIC TAB PEG SCH (13:33)
[2017-06-01] MEDS: SPIRONOLACTONE 25 MG TAB PEG SCH (13:33)
[2017-06-01] MEDS: LACTIC ACID (AMMONIUM LACTATE) 12% LOTION 225 GM BTL TOPICAL SCH ×2 (13:34→23:51)
[2017-06-01] MEDS: CEFEPIME INJ 2,000 MG in SODIUM CHLORIDE 0.9% INJ 100 ML IV SCH (18:51)
--- NOTE | 2017-06-01 19:23 | MB ---
cc: VINCENT ESCALONA MD DATE OF CONSULTATION 06/01/[address] Monreal REASON FOR CONSULTATION Urinary tract infection. HISTORY OF PRESENT ILLNESS This is an 86-year-old white female who was brought to the emergency department from a [facility] facility. The patient apparently had respiratory symptoms with coughing. She has been on IV antibiotics for possible pneumonia. She also is noted to have a decubiti sacral ulceration. She has an indwelling [place] catheter. The patient is severely demented and unable to give any information. She mumbles to me to leave her alone while I tried to get information from her. She obviously cannot give me any information. I was able to do a short examination, but she did not cooperate with any attempts to get her to do so. The patient was evaluated in the emergency department and was noted to have cloudy urine with a large amount of leukocyte esterase and many bacteria. The urine culture is pending. A chest x-ray was performed and it showed no acute abnormality. The patient appears calm and she does not appear to be in any acute distress. The urine culture preliminary has gram-negative braulio. The patient has a history of ESBL E-coli urinary tract infection. Information is also obtained from the medical record. PAST MEDICAL HISTORY 1. Urinary tract infection 2. Hypothyroidism, 3. Dementia, 4. Bipolar disorder, 5. Schizophrenia 6. PEG placement 7. Total abdominal hysterectomy. ALLERGIES SULFA ASPIRIN CELECOXIB HALOPERIDOL RESPERIDONE CHLORPROMAZINE. MEDICATIONS 1. Remeron 2. Pravachol 3. Depakote 4. Vitamin C. 5. Plavix. 6. Prevacid. 7. Lopressor. 8. Aldactone 9. Multivitamin 10. Peggy-Colace. 11. Synthroid. 12. Lovenox. SOCIAL HISTORY Difficult to obtain. Per the medical record, no tobacco, no alcohol. No illicit drugs. FAMILY HISTORY Unable to obtain. REVIEW OF SYSTEMS Unable to obtain. PHYSICAL EXAMINATION GENERAL: This is a frail female who is laying in bed and appears awake. VITAL SIGNS: Temperature 98.2, BP 114/83, respirations 16, heart rate 58. HEENT: Head is atraumatic. Extraocular movements are grossly intact, pupils reactive to light. No icterus. Oropharynx moist mucosa. NECK: Supple. LUNGS: Clear breath sounds HEART: Regular S1 and S2. No audible murmur. ABDOMEN: Bowel sounds present, soft. RECTAL: Not performed. EXTREMITIES: No clubbing or cyanosis. Trace edema at the lower extremities. Contractures noted of the extremities. NEUROLOGIC: Difficult to assess. PSYCHIATRIC: Difficult to assess. LABORATORY DATA WBC 10.7, platelets 312, 62% neutrophils, 18% lymphocytes, 15% monocytes. Creatinine 0.65, BUN 17, sodium 148. IMPRESSION 1. Urinary tract infection due to gram-negative braulio. Patient with history of ESBL E-coli in the past. 2. Severe dementia. 3. Reportedly, the patient had respiratory symptoms, but negative chest x-ray and no clear signs of pneumonia. RECOMMENDATIONS 1. Begin cefepime. 2. Monitor urine culture. We may need to change to carbapeneum if she has ESBL in the urine. 3. Monitor clinical status. Thank you for this consultation. I will follow the patient's progress and will make further recommendations upon followup. Vincent Escalona MD FD/ /5:10 PM /7:05 PM MTDKsenia
[2017-06-01] MEDS: PRAVASTATIN SOD 10 MG TAB PEG SCH (23:50)
[2017-06-01] MEDS: MIRTAZAPINE 15 MG TAB PEG SCH (23:50)
[2017-06-01] MEDS: DIVALPROEX SODIUM SPRINKLES 125 MG CAP G-TUBE SCH (23:51)
[2017-06-02] VITALS (7 sets, daily range): BP systolic 118–178; BP diastolic 57–79; PULSE 59–72; RESP 16–18; TEMP 96.8–98.6; O2SAT 90–94
[2017-06-02] MEDS: RESP: ALBUTEROL 0.63 MG/3 ML NEB (PRN) NEB (01:53)
--- NOTE | 2017-06-02 04:34 | RADRPT ---
EXAM DATE/TIME: 06/02/2017 04:12 [place] COMPARISON: CHEST SINGLE AP, June 01, 2017, 2:03. INDICATIONS : Shortness of breath, Respiratory distress MEDICAL HISTORY : Hypertension. Hiatal hernia. Hypothyroidism. A-fib, GERD, CVA SURGICAL HISTORY : Appendectomy. Cholecystectomy. Hysterectomy. PEG tube, Hernia repair ENCOUNTER: Subsequent ACUITY: 2 days PAIN SCORE: Non-responsive. LOCATION: Bilateral chest FINDINGS: One apparent area of mild consolidation now seen in the right midlung. No pleural effusion. No pneumo thorax. Elevation of the right hemidiaphragm again noted. Heart size stable, within normal limits. CONCLUSION: Suspected right mid lung pneumonia developing. Medical management and x-ray followup to resolution re commended. Werner Lowery MD on June 02, 2017 at 4:32 Board Certified Radiologist. This report was verified electronically.
[2017-06-02] MEDS: CEFEPIME INJ 2,000 MG in SODIUM CHLORIDE 0.9% INJ 100 ML IV SCH ×2 (05:59→17:49)
[2017-06-02] MEDS: LEVOTHYROXINE SODIUM 100 MCG TAB PEG SCH (06:00)
[2017-06-02] MEDS: ENOXAPARIN SODIUM 30 MG/0.3 ML SYRINGE SQ SCH (06:06)
[2017-06-02] MEDS: DOCUSATE SODIUM 50 MG/SENNA 8.6 MG TAB PO SCH ×2 (09:00→21:00)
[2017-06-02] MEDS: LANSOPRAZOLE SOLUTAB 30 MG TAB PEG SCH (09:33)
[2017-06-02] MEDS: METOPROLOL TARTRATE 50 MG TAB PEG SCH ×2 (09:33→23:14)
[2017-06-02] MEDS: SODIUM CHLORIDE 0.9% FLUSH 10 ML FLUSH IV FLUSH SCH ×2 (09:34→21:00)
[2017-06-02] MEDS: DIVALPROEX SODIUM SPRINKLES 125 MG CAP G-TUBE SCH ×2 (09:34→23:13)
[2017-06-02] MEDS: MULTIVITAMINS/MINERALS THERAPEUTIC TAB PEG SCH (09:35)
[2017-06-02] MEDS: ASCORBIC ACID 500 MG TAB PEG SCH ×2 (09:35→23:14)
[2017-06-02] MEDS: SPIRONOLACTONE 25 MG TAB PEG SCH (09:35)
[2017-06-02] MEDS: CLOPIDOGREL 75 MG TAB PEG SCH (09:35)
[2017-06-02] MEDS: LACTIC ACID (AMMONIUM LACTATE) 12% LOTION 225 GM BTL TOPICAL SCH ×2 (09:37→23:14)
--- NOTE | 2017-06-02 10:46 | HHI.PR ---
Subjective Remarks She is more alert today and said "hi" when I greeted her in her room this AM. That was the extent of our conversation but a definite improvement since admission. ID saw and changed IV antibiotics for treatment of apparent UTI with C&S pending. Objective Vital Signs Date Time Temp Pulse Resp B/P (MAP) Pulse Ox O2 Delivery O2 Flow Rate FiO2 06/02/17 09:23 96.8 63 17 144/67 (92) 94 06/02/17 05:18 60 06/02/17 05:06 98.6 59 18 118/57 (77) 93 06/02/17 04:00 Nasal Cannula 2.00 06/02/17 00:00 Nasal Cannula 2.00 06/01/17 23:43 97.0 71 18 132/67 (88) 92 06/01/17 16:27 98.2 58 16 149/83 (105) 95 06/01/17 10:55 98.1 70 16 134/59 (84) 96 I/O 06/01/17 06/01/17 06/01/17 06/02/17 06/02/17 06/02/17 07:00 15:00 23:00 07:00 15:00 23:00 Intake Total 855 ml 500 ml Balance 855 ml 500 ml Intake IV Total 600 ml Tube Feeding 55 ml TPN/PPN 500 ml Tube Irrigant 200 ml Result Diagram: 06/01/17 0451 06/01/17 0210 Imaging Last Impressions Chest X-Ray 06/02/17 0000 Signed Impressions: Service Date/Time: Friday, June 02, 2017 04:12 - CONCLUSION: Suspected right mid lung pneumonia developing. Medical management and x-ray followup to resolution recommended. Werner Lowery MD Objective Remarks HEENT - AT/NC Resp - sonorous rhonci but no other adventitious sounds heard CV - Difficult to hear HS due to loud breathing ABD - PEG in place and without apparent tenderness. BS are active MS - Large sacral decub noted and contractures of extremities again noted Medications and IVs Current Medications Medications (Trade) Dose Ordered Sig/Db Route Start Time Stop Time Status Last Admin (Albuterol Neb) 0.63 mg Q6HR NEB PRN NEB 06/01/17 06:00 06/02/17 01:53 (Vitamin C) 500 mg BID PEG 06/01/17 09:00 2/25/18 09:35 (Plavix) 75 mg DAILY PEG 06/01/17 09:00 06/02/17 09:35 (Lac-Hydrin 12% Lotion) 1 applic BID TOPICAL 06/01/17 09:00 06/02/17 09:37 (Prevacid Odt) 30 mg DAILY PEG 06/01/17 09:00 06/02/17 09:33 (Synthroid) 100 mcg DAILY@0600 PEG 06/01/17 06:00 06/02/17 06:00 (Milk Of Magnesia Liq) 30 ml HS PRN PEG 06/01/17 06:00 (Lopressor) 50 mg BID PEG 06/01/17 09:00 06/02/17 09:33 (Remeron) 15 mg HS PEG 06/01/17 21:00 06/01/17 23:50 (Pravachol) 10 mg HS PEG 06/01/17 21:00 06/01/17 23:50 (Aldactone) 25 mg DAILY PEG 06/01/17 09:00 06/02/17 09:35 (Theragran M Tab) 1 tab DAILY PEG 06/01/17 09:00 06/02/17 09:35 (NS Flush) 2 ml UNSCH PRN IV FLUSH 06/01/17 06:00 (NS Flush) 2 ml BID IV FLUSH 06/01/17 09:00 06/02/17 09:34 (Tylenol 650 Mg/ 20 ml Liq) 650 mg Q4H PRN PEG 06/01/17 06:30 (Lovenox Inj) 30 mg Q24H SQ 06/01/17 06:00 06/02/17 06:06 (Narcan Inj) 0.4 mg UNSCH PRN IV PUSH 06/01/17 06:00 (Peggy-Colace) 1 tab BID PO 06/01/17 09:00 06/01/17 23:50 (Milk Of Magnesia Liq) 30 ml Q12H PRN PO 06/01/17 06:00 (Senokot) 17.2 mg Q12H PRN PO 06/01/17 06:00 (Dulcolax Supp) 10 mg DAILY PRN RECTAL 06/01/17 06:00 (Lactulose Liq) 30 ml DAILY PRN PO 06/01/17 06:00 (Depakote Sprinkles) 250 mg BID G-TUBE 06/01/17 21:00 06/02/17 09:34 Cefepime HCl 2000 mg/Sodium Chloride 100 ml @ 200 mls/hr Q12H IV 06/01/17 18:00 06/02/17 05:59 Assessment and Plan Problem List: (1) Alzheimer disease ICD Codes: G30.9 - Alzheimer's disease, unspecified Status: Chronic Plan: Cont meds from outpatient (2) UTI (urinary tract infection) ICD Codes: N39.0 - Urinary tract infection, site not specified Status: Acute Plan: Antibiotics as ordered and ID consult and antibiotic change noted (3) Sacral decubitus ulcer ICD Codes: L89.159 - Pressure ulcer of sacral region, unspecified stage Status: Acute Plan: Consult wound care nurse (4) BipolarII Status: Chronic Plan: Cont meds from outpatient Assessment and Plan F/U wound care and ID recommendations. Cont antibiotics and F/U urine culture. Cont meds from SNF. Discharge Planning Back to SNF Problem Qualifiers (1) Alzheimer disease: (2) UTI (urinary tract infection): (3) Sacral decubitus ulcer: Qualified Codes: L89.154 - Pressure ulcer of sacral region, stage 4 Ethan Logan Jun 02, 2017 10:46
[2017-06-02] MEDS ORDERED: MISCELLANEOUS PHARMACY INFORMATION XX PRN ×2 (21:00)
[2017-06-02] MEDS ORDERED: ASP: Documented ESBL, MDR A baumannii or P. aeruginosa PRN (21:00)
[2017-06-02] MEDS: ERTAPENEM INJ 1,000 MG in SODIUM CHLORIDE 0.9% INJ 100 ML IV SCH (23:04)
[2017-06-02] MEDS: PRAVASTATIN SOD 10 MG TAB PEG SCH (23:14)
[2017-06-02] MEDS: MIRTAZAPINE 15 MG TAB PEG SCH (23:14)
[2017-06-03] VITALS (7 sets, daily range): BP systolic 136–155; BP diastolic 63–77; PULSE 63–72; RESP 16–18; TEMP 97.2–98.2; O2SAT 87–97
[2017-06-03] MEDS: LEVOTHYROXINE SODIUM 100 MCG TAB PEG SCH (07:17)
[2017-06-03] MEDS: ENOXAPARIN SODIUM 30 MG/0.3 ML SYRINGE SQ SCH (07:17)
[2017-06-03] MEDS: MULTIVITAMINS/MINERALS THERAPEUTIC TAB PEG SCH (09:00)
[2017-06-03] MEDS: LANSOPRAZOLE SOLUTAB 30 MG TAB PEG SCH (09:00)
[2017-06-03] MEDS: ASCORBIC ACID 500 MG TAB PEG SCH ×2 (09:00→20:56)
[2017-06-03] MEDS: SODIUM CHLORIDE 0.9% FLUSH 10 ML FLUSH IV FLUSH SCH ×2 (09:00→20:57)
[2017-06-03] MEDS: LACTIC ACID (AMMONIUM LACTATE) 12% LOTION 225 GM BTL TOPICAL SCH ×2 (09:00→20:58)
--- NOTE | 2017-06-03 10:25 | HHI.PR ---
Subjective Remarks Found in bed, alert, doesn't say much Objective Vital Signs Date Time Temp Pulse Resp B/P (MAP) Pulse Ox O2 Delivery O2 Flow Rate FiO2 06/03/17 08:22 97.4 65 18 155/70 (98) 87 06/03/17 04:00 98.2 63 16 152/76 (101) 92 06/03/17 00:00 98.2 72 18 137/63 (87) 94 06/02/17 20:00 98.0 72 16 137/63 (87) 93 06/02/17 16:00 98.5 65 16 158/75 (102) 91 06/02/17 12:30 64 06/02/17 12:00 98.3 68 16 178/79 (112) 90 I/O 06/02/17 06/02/17 06/02/17 06/03/17 06/03/17 06/03/17 07:00 15:00 23:00 07:00 15:00 23:00 Intake Total 500 ml Output Total 800 ml Balance 500 ml -800 ml TPN/PPN 500 ml Output Urine Total 800 ml Result Diagram: 06/01/17 0451 06/01/17 0210 Imaging Last 48 hours Impressions Chest X-Ray 06/02/17 0000 Signed Impressions: Service Date/Time: Friday, June 02, 2017 04:12 - CONCLUSION: Suspected right mid lung pneumonia developing. Medical management and x-ray followup to resolution recommended. Werner Lowery MD Other Results GENERAL: This is a thin contracted, elderly lady lying on her side in bed. SKIN: Stage 4 sacral decub. HEAD: Atraumatic. Normocephalic. No temporal or scalp tenderness. EYES: without redness or drainage ENT: Nose without bleeding, purulent drainage or septal hematoma. NECK: Trachea midline. No JVD or lymphadenopathy. Supple, nontender, no meningeal signs. CARDIOVASCULAR: Regular rate and rhythm without murmurs, gallops, or rubs. RESPIRATORY: Shallow breathing but sound clear to auscultation. Breath sounds equal bilaterally. No wheezes, rales, or rhonchi. GASTROINTESTINAL: Abdomen soft, non-tender, nondistended. No guarding. PEG in place MUSCULOSKELETAL: Contractures of extremities noted. NEUROLOGICAL: Awake but nonverbal and demented Medications and IVs Current Medications Medications (Trade) Dose Ordered Sig/Db Route Start Time Stop Time Status Last Admin (Albuterol Neb) 0.63 mg Q6HR NEB PRN NEB 06/01/17 06:00 06/02/17 01:53 (Vitamin C) 500 mg BID PEG 06/01/17 09:00 06/02/17 23:14 (Plavix) 75 mg DAILY PEG 06/01/17 09:00 06/02/17 09:35 (Lac-Hydrin 12% Lotion) 1 applic BID TOPICAL 06/01/17 09:00 06/02/17 23:14 (Prevacid Odt) 30 mg DAILY PEG 06/01/17 09:00 06/02/17 09:33 (Synthroid) 100 mcg DAILY@0600 PEG 06/01/17 06:00 06/03/17 07:17 (Milk Of Magnesia Liq) 30 ml HS PRN PEG 06/01/17 06:00 (Lopressor) 50 mg BID PEG 06/01/17 09:00 06/02/17 23:14 (Remeron) 15 mg HS PEG 06/01/17 21:00 06/02/17 23:14 (Pravachol) 10 mg HS PEG 06/01/17 21:00 06/02/17 23:14 (Aldactone) 25 mg DAILY PEG 06/01/17 09:00 06/02/17 09:35 (Theragran M Tab) 1 tab DAILY PEG 06/01/17 09:00 06/02/17 09:35 (NS Flush) 2 ml UNSCH PRN IV FLUSH 06/01/17 06:00 (NS Flush) 2 ml BID IV FLUSH 06/01/17 09:00 06/02/17 21:00 (Tylenol 650 Mg/ 20 ml Liq) 650 mg Q4H PRN PEG 06/01/17 06:30 (Lovenox Inj) 30 mg Q24H SQ 06/01/17 06:00 06/03/17 07:17 (Narcan Inj) 0.4 mg UNSCH PRN IV PUSH 06/01/17 06:00 (Peggy-Colace) 1 tab BID PO 06/01/17 09:00 06/01/17 23:50 (Milk Of Magnesia Liq) 30 ml Q12H PRN PO 06/01/17 06:00 (Senokot) 17.2 mg Q12H PRN PO 06/01/17 06:00 (Dulcolax Supp) 10 mg DAILY PRN RECTAL 06/01/17 06:00 (Lactulose Liq) 30 ml DAILY PRN PO 06/01/17 06:00 (Depakote Sprinkles) 250 mg BID G-TUBE 06/01/17 21:00 06/02/17 23:13 (ASP Crit: Doc ESBL, MDR A baumannii or P aer) 1 UNSCH X1 PRN .XX 06/02/17 21:00 06/03/17 20:59 ([facility] Information) 1 UNSCH X1 PRN XX 06/02/17 21:00 06/03/17 20:59 Ertapenem 1000 mg/ Sodium Chloride 100 ml @ 200 mls/hr Q24H IV 06/02/17 21:00 06/02/17 23:04 ([facility] Information) 1 UNSCH X1 PRN XX 06/02/17 21:00 06/03/17 20:59 Assessment and Plan Problem List: (1) ESBL (extended spectrum beta-lactamase) producing bacteria infection ICD Codes: A49.9 - Bacterial infection, unspecified; Z16.12 - Extended spectrum beta lactamase (ESBL) resistance Plan: ID following, cont with Ertapenem IV Contact Isolation (2) Sacral decubitus ulcer ICD Codes: L89.159 - Pressure ulcer of sacral region, unspecified stage Status: Acute Plan: wound care Following (3) Malnutrition ICD Codes: E46 - Unspecified protein-calorie malnutrition Status: Acute Plan: Cont with Eternal feeding. Discharge Planning Return Rehab when d/c Problem Qualifiers (1) Sacral decubitus ulcer: Qualified Codes: L89.154 - Pressure ulcer of sacral region, stage 4 (2) Malnutrition: Joyce Smith Jun 03, 2017 10:25
[2017-06-03] MEDS: METOPROLOL TARTRATE 50 MG TAB PEG SCH ×2 (11:15→20:58)
[2017-06-03] MEDS: DIVALPROEX SODIUM SPRINKLES 125 MG CAP G-TUBE SCH ×2 (11:15→20:56)
[2017-06-03] MEDS: CLOPIDOGREL 75 MG TAB PEG SCH (11:15)
[2017-06-03] MEDS: SPIRONOLACTONE 25 MG TAB PEG SCH (11:16)
[2017-06-03] MEDS: DOCUSATE SODIUM 50 MG/SENNA 8.6 MG TAB PO SCH ×2 (11:16→20:56)
--- NOTE | 2017-06-03 12:49 | PD.WCN.NOT ---
Wound Consult Description: Wound consult ordered by for sacrum Communicated with: Neeta bragg, Joyce PORTER for Recommendation: 1) Encourage patient to reposition every 2 hours for comfort and offloading. 2) Cleanse Sacral/Inner buttocks pressure injury with normal saline pat dry. 3) Skin prep periwound apply calcium alginate lightly packed in wound base and all undermining areas. 4) Cover with sacral foam dressing change every 3 days or as needed for loose stools or dislodgement. 5) Apply skin prep to intact eschar and deflated Bulla to mid right back. Additional Information: Patient was seen today by machine sign writer and Neeta bragg.Patient alert with confusion.Patient was physically combative at times with nurses.Patient required max assistance to reposition to left side.Dressing removed from sacral area to reveal a stage 4 pressure injury with fascia exposed and palpable bone.Wound cleansed with normal saline pat dry.Wound measures ~10.4cm x ~6.6cm with max depth being at sacrum of ~0.7cm wound margins extend down bilateral inner buttocks.Wound base is ~75% pink/red tissue ~20% yellow slough ~5% fascia.Undermining noted from ~12-3 O'clock unable to measure at this time due to resistance from patient.Moderate serosanguineous drainage noted with faint odor present.Wound was cleansed with normal saline skin prep applied to periwound calcium alginate lightly applied to wound base and undermining areas covered with sacral foam signed and dated.Patient has a deflated intact Bulla to right mid back measuring ~2.0cm x 2.0cm skin prep applied. Right lateral dorsal foot has 2 areas of stable intact eschar in which skin prep was applied.Patient needed continuos console and reassurance during dressing change.Staff Interpreter does not believe she would tolerate daily dressing changes. Curt Ayala [facility] Jun 03, 2017 12:49
--- NOTE | 2017-06-03 16:06 | HHI.IDPN ---
Note Infectious Disease Note Patient is more awake. Sticking out tongue at me and yelling. " Go away" Afebrile. Not answering my questions. is an 86-year-old white female who was brought to the emergency department from a [facility] facility. The patient apparently had respiratory symptoms with coughing. She has been on IV antibiotics for possible pneumonia. She also is noted to have a decubiti sacral ulceration. She has an indwelling Frederick catheter. The patient is severely demented. PAST MEDICAL HISTORY 1. Urinary tract infection 2. Hypothyroidism, 3. Dementia, 4. Bipolar disorder, 5. Schizophrenia 6. PEG placement 7. Total abdominal hysterectomy. ALLERGIES SULFA ASPIRIN CELECOXIB HALOPERIDOL RESPERIDONE CHLORPROMAZINE. ANTIBIOTICS: Ertapenem. SOCIAL HISTORY Difficult to obtain. PATIENT NOT COOPERATING. PHYSICAL EXAMINATION GENERAL: Awake. HEENT: Head is atraumatic. Extraocular movements are grossly intact, pupils reactive to light. No icterus. Oropharynx moist mucosa. (+) thrush. NECK: Supple. LUNGS: Clear decreased breath sounds HEART: Regular S1 and S2. No audible murmur. ABDOMEN: Bowel sounds present, soft. EXTREMITIES: No clubbing or cyanosis. Trace edema at the lower extremities. Contractures of the lower extremities. NEUROLOGIC: Difficult to assess. PSYCHIATRIC: Difficult to assess. IMPRESSION 1. Urinary tract infection due to ESBL E-coli. 2. Severe dementia. 3. Reportedly, the patient had respiratory symptoms, but negative chest x-ray and no clear signs of pneumonia. RECOMMENDATIONS 1. Continue Ertapenem. 2. Repeat urine culture Monday 06/05 3. Monitor clinical status. 4. Diflucan for thrush. She is not cooperating but will also try Nystatin swab to the tongue. Stevenson Mcneill MD Jun 03, 2017 16:06
[2017-06-03] MEDS: NYSTATIN SUSP 500,000 U/5 ML CUP SWISH-SWAL SCH ×2 (18:46→20:58)
[2017-06-03] MEDS: FLUCONAZOLE 100 MG TAB PO SCH (18:46)
[2017-06-03] MEDS: MIRTAZAPINE 15 MG TAB PEG SCH (20:56)
[2017-06-03] MEDS: PRAVASTATIN SOD 10 MG TAB PEG SCH (20:56)
[2017-06-03] MEDS: ERTAPENEM INJ 1,000 MG in SODIUM CHLORIDE 0.9% INJ 100 ML IV SCH (20:57)
[2017-06-04] VITALS (8 sets, daily range): BP systolic 104–186; BP diastolic 58–85; PULSE 59–74; RESP 18; TEMP 97.1–98.1; O2SAT 93–97
[2017-06-04] MEDS: ENOXAPARIN SODIUM 30 MG/0.3 ML SYRINGE SQ SCH (06:44)
[2017-06-04] MEDS: LEVOTHYROXINE SODIUM 100 MCG TAB PEG SCH (06:44)
[2017-06-04 08:04] LABS: AUTOMATED NEUTROPHIL # 4.8 TH/MM3 (1.8-7.7); BASOPHIL # 0.1 TH/MM3 (0-0.2); BASOPHIL % 0.6 % (0.0-2.0); EOSINOPHIL # 0.4 TH/MM3 (0-0.4); HEMATOCRIT 30.9 % (35.0-46.0); HEMOGLOBIN 10.1 GM/DL (11.6-15.3); LYMPH % 24.2 % (9.0-44.0); MEAN CORPUSCULAR HEMOGLOBIN 29.2 PG (27.0-34.0); MEAN CORPUSCULAR HGB CONC 32.8 % (32.0-36.0); MEAN PLATELET VOLUME 7.8 FL (7.0-11.0); MONO % 12.8 % (0.0-8.0); MONOCYTE # 1.1 TH/MM3 (0-0.9); NEUT % 57.4 % (16.0-70.0); PLATELET COUNT 317 TH/MM3 (150-450); RED BLOOD COUNT 3.47 MIL/MM3 (4.00-5.30); RED CELL DISTRIBUTION WIDTH 17.2 % (11.6-17.2); WHITE BLOOD COUNT 8.3 TH/MM3 (4.0-11.0)
[2017-06-04] MEDS: LANSOPRAZOLE SOLUTAB 30 MG TAB PEG SCH (08:28)
[2017-06-04] MEDS: MULTIVITAMINS/MINERALS THERAPEUTIC TAB PEG SCH (08:28)
[2017-06-04] MEDS: SPIRONOLACTONE 25 MG TAB PEG SCH (08:28)
[2017-06-04] MEDS: FLUCONAZOLE 100 MG TAB PO SCH (08:28)
[2017-06-04] MEDS: DOCUSATE SODIUM 50 MG/SENNA 8.6 MG TAB PO SCH ×2 (08:28→21:52)
[2017-06-04] MEDS: ASCORBIC ACID 500 MG TAB PEG SCH ×2 (08:28→21:52)
[2017-06-04] MEDS: METOPROLOL TARTRATE 50 MG TAB PEG SCH ×2 (08:28→21:00)
[2017-06-04] MEDS: CLOPIDOGREL 75 MG TAB PEG SCH (08:29)
[2017-06-04] MEDS: DIVALPROEX SODIUM SPRINKLES 125 MG CAP G-TUBE SCH ×2 (08:29→21:52)
[2017-06-04] MEDS: NYSTATIN SUSP 500,000 U/5 ML CUP SWISH-SWAL SCH ×4 (08:29→21:52)
[2017-06-04] MEDS: SODIUM CHLORIDE 0.9% FLUSH 10 ML FLUSH IV FLUSH SCH ×2 (08:31→21:54)
[2017-06-04 08:55] LABS: BICARBONATE 30.3 MEQ/L (21.0-32.0); CALCIUM 8.6 MG/DL (8.5-10.1); CREATININE 0.49 MG/DL (0.50-1.00)
--- NOTE | 2017-06-04 09:14 | HHI.PR ---
Subjective Remarks awake in bed non verbal Objective Vital Signs Date Time Temp Pulse Resp B/P (MAP) Pulse Ox O2 Delivery O2 Flow Rate FiO2 06/04/17 08:15 98.0 70 18 186/85 (118) 93 06/04/17 04:00 97.1 65 18 104/58 (73) 97 06/04/17 00:00 97.3 65 18 149/65 (93) 95 06/03/17 20:00 97.2 67 18 147/67 (93) 97 06/03/17 19:45 Room Air 06/03/17 19:03 Room Air 06/03/17 18:34 Room Air 06/03/17 16:00 97.5 65 18 136/77 (96) 06/03/17 14:04 64 06/03/17 12:00 97.7 65 18 147/65 (92) I/O 06/03/17 06/03/17 06/03/17 06/04/17 06/04/17 06/04/17 07:00 15:00 23:00 07:00 15:00 23:00 Intake Total 1586 ml Output Total 800 ml 200 ml 400 ml Balance -800 ml -200 ml 1586 ml -400 ml Tube Feeding 986 ml Other 600 ml Output Urine Total 800 ml 200 ml 400 ml Result Diagram: 06/04/17 0710 06/04/17 0710 Other Results Alert severely demented contracted in bed not cooperative for examination Medications and IVs Current Medications Medications (Trade) Dose Ordered Sig/Db Route Start Time Stop Time Status Last Admin (Albuterol Neb) 0.63 mg Q6HR NEB PRN NEB 06/01/17 06:00 06/02/17 01:53 (Vitamin C) 500 mg BID PEG 06/01/17 09:00 06/04/17 08:28 (Plavix) 75 mg DAILY PEG 06/01/17 09:00 06/04/17 08:29 (Lac-Hydrin 12% Lotion) 1 applic BID TOPICAL 06/01/17 09:00 06/03/17 20:58 (Prevacid Odt) 30 mg DAILY PEG 06/01/17 09:00 06/04/17 08:28 (Synthroid) 100 mcg DAILY@0600 PEG 06/01/17 06:00 06/04/17 06:44 (Milk Of Magnesia Liq) 30 ml HS PRN PEG 06/01/17 06:00 (Lopressor) 50 mg BID PEG 06/01/17 09:00 06/04/17 08:28 (Remeron) 15 mg HS PEG 06/01/17 21:00 06/03/17 20:56 (Pravachol) 10 mg HS PEG 06/01/17 21:00 06/03/17 20:56 (Aldactone) 25 mg DAILY PEG 06/01/17 09:00 06/04/17 08:28 (Theragran M Tab) 1 tab DAILY PEG 06/01/17 09:00 06/04/17 08:28 (NS Flush) 2 ml UNSCH PRN IV FLUSH 06/01/17 06:00 (NS Flush) 2 ml BID IV FLUSH 06/01/17 09:00 06/04/17 08:31 (Tylenol 650 Mg/ 20 ml Liq) 650 mg Q4H PRN PEG 06/01/17 06:30 (Lovenox Inj) 30 mg Q24H SQ 06/01/17 06:00 06/04/17 06:44 (Narcan Inj) 0.4 mg UNSCH PRN IV PUSH 06/01/17 06:00 (Peggy-Colace) 1 tab BID PO 06/01/17 09:00 06/04/17 08:28 (Milk Of Magnesia Liq) 30 ml Q12H PRN PO 06/01/17 06:00 (Senokot) 17.2 mg Q12H PRN PO 06/01/17 06:00 (Dulcolax Supp) 10 mg DAILY PRN RECTAL 06/01/17 06:00 (Lactulose Liq) 30 ml DAILY PRN PO 06/01/17 06:00 (Depakote Sprinkles) 250 mg BID G-TUBE 06/01/17 21:00 06/04/17 08:29 Ertapenem 1000 mg/ Sodium Chloride 100 ml @ 200 mls/hr Q24H IV 06/02/17 21:00 06/03/17 20:57 (Diflucan) 100 mg DAILY PO 06/03/17 16:30 06/04/17 08:28 (Mycostatin Liq) 5 ml QID SWISH-SWAL 06/03/17 18:00 06/04/17 08:29 (Flu (Quadrivalent) Vaccine Inj) 0.5 ml ONCE ONCE IM 06/04/17 10:00 06/04/17 10:01 Assessment and Plan Problem List: (1) ESBL (extended spectrum beta-lactamase) producing bacteria infection ICD Codes: A49.9 - Bacterial infection, unspecified; Z16.12 - Extended spectrum beta lactamase (ESBL) resistance Plan: ID following, cont with Ertapenem IV Contact Isolation Reculture on 06/05 per ID Afebrile, WBC 8 (2) Sacral decubitus ulcer ICD Codes: L89.159 - Pressure ulcer of sacral region, unspecified stage Status: Acute Plan: wound care Following, order for calcium alginate q3 days r/t patient cooperation (3) Thrush ICD Codes: B37.0 - Candidal stomatitis Plan: Nystatin, swish and swallow (4) Malnutrition ICD Codes: E46 - Unspecified protein-calorie malnutrition Status: Acute Plan: Cont with Eternal feeding. Discharge Planning Return to [place] when stable Problem Qualifiers (1) Sacral decubitus ulcer: Qualified Codes: L89.154 - Pressure ulcer of sacral region, stage 4 (2) Malnutrition: Joyce Smith Jun 04, 2017 09:14
[2017-06-04 09:28] LABS: BANDS 3 % (0-6); BASOPHILS 1 % (0-2); LYMPHOCYTES 24 % (9-44); METAMYELOCYTES 1 % (0-1); MONOCYTES 9 % (0-8); NEUTROPHIL # MANUAL DIFF 5.5 TH/MM3 (1.8-7.7); POLYS (SEG NEUTROPHILS) 62 % (16-70)
[2017-06-04] MEDS ORDERED: INFLUENZA VIRUS VACCINE (QUADRIVALENT) 0.5 ML SYR IM ONE (10:00)
[2017-06-04] MEDS: LACTIC ACID (AMMONIUM LACTATE) 12% LOTION 225 GM BTL TOPICAL SCH ×2 (13:14→21:53)
[2017-06-04] MEDS: MIRTAZAPINE 15 MG TAB PEG SCH (21:51)
[2017-06-04] MEDS: PRAVASTATIN SOD 10 MG TAB PEG SCH (21:52)
[2017-06-04] MEDS: ERTAPENEM INJ 1,000 MG in SODIUM CHLORIDE 0.9% INJ 100 ML IV SCH (21:53)
[2017-06-05] VITALS (9 sets, daily range): BP systolic 112–180; BP diastolic 56–82; PULSE 52–93; RESP 17–18; TEMP 97–98.6; O2SAT 92–94
[2017-06-05] MEDS: ENOXAPARIN SODIUM 30 MG/0.3 ML SYRINGE SQ SCH (06:18)
[2017-06-05] MEDS: LEVOTHYROXINE SODIUM 100 MCG TAB PEG SCH (06:18)
--- NOTE | 2017-06-05 06:59 | HHI.PR ---
Subjective Remarks awake in bed no apparent distress Objective Vital Signs Date Time Temp Pulse Resp B/P (MAP) Pulse Ox O2 Delivery O2 Flow Rate FiO2 06/05/17 04:12 98.6 65 18 152/82 (105) 94 06/05/17 00:33 98.1 93 18 180/74 (109) 93 06/04/17 20:18 97.5 74 18 122/59 (80) 93 06/04/17 16:03 97.9 71 18 134/61 (85) 94 06/04/17 12:44 62 06/04/17 12:08 98.1 71 18 167/78 (107) 95 06/04/17 08:30 Room Air 06/04/17 08:15 98.0 70 18 186/85 (118) 93 06/04/17 08:00 59 I/O 06/04/17 06/04/17 06/04/17 06/05/17 06/05/17 06/05/17 07:00 15:00 23:00 07:00 15:00 23:00 Output Total 400 ml 600 ml 550 ml Balance -400 ml -600 ml -550 ml Output Urine Total 400 ml 600 ml 550 ml # Bowel Movements 2 1 Result Diagram: 06/04/17 0710 06/04/17 0710 Objective Remarks PHYSICAL EXAMINATION GENERAL: Awake, alert LUNGS: equal B/L, HEART: RRR ABDOMEN: Belly soft non tender. EXTREMITIES: Contracted b/l le. Patient difficult to examine she is very demented Assessment and Plan Problem List: (1) ESBL (extended spectrum beta-lactamase) producing bacteria infection ICD Codes: A49.9 - Bacterial infection, unspecified; Z16.12 - Extended spectrum beta lactamase (ESBL) resistance Plan: ID following, cont with Ertapenem IV Contact Isolation continues to be Afebrile (2) HTN (hypertension) ICD Codes: I10 - Essential (primary) hypertension Plan: B/P running any where from 140- 180 systolic. Unsure if this is r/t refusing medication because of severe dementia. Will add lisinopril, cont to monitor (3) Sacral decubitus ulcer ICD Codes: L89.159 - Pressure ulcer of sacral region, unspecified stage Status: Acute Plan: wound care Following, order for calcium alginate q3 days r/t patient cooperation (4) Thrush ICD Codes: B37.0 - Candidal stomatitis Plan: Nystatin, swish and swallow (5) Malnutrition ICD Codes: E46 - Unspecified protein-calorie malnutrition Status: Acute Plan: Cont with Eternal feeding. Problem Qualifiers (1) Sacral decubitus ulcer: Qualified Codes: L89.154 - Pressure ulcer of sacral region, stage 4 (2) Malnutrition: Joyce Smith Jun 05, 2017 06:59
[2017-06-05] MEDS: DIVALPROEX SODIUM SPRINKLES 125 MG CAP G-TUBE SCH ×2 (08:07→22:46)
[2017-06-05] MEDS: MULTIVITAMINS/MINERALS THERAPEUTIC TAB PEG SCH (08:07)
[2017-06-05] MEDS: SPIRONOLACTONE 25 MG TAB PEG SCH (08:07)
[2017-06-05] MEDS: CLOPIDOGREL 75 MG TAB PEG SCH (08:07)
[2017-06-05] MEDS: ASCORBIC ACID 500 MG TAB PEG SCH ×2 (08:07→22:44)
[2017-06-05] MEDS: FLUCONAZOLE 100 MG TAB PO SCH (08:07)
[2017-06-05] MEDS: DOCUSATE SODIUM 50 MG/SENNA 8.6 MG TAB PO SCH ×2 (08:07→21:00)
[2017-06-05] MEDS: LANSOPRAZOLE SOLUTAB 30 MG TAB PEG SCH (08:08)
[2017-06-05] MEDS: NYSTATIN SUSP 500,000 U/5 ML CUP SWISH-SWAL SCH ×4 (08:09→22:42)
[2017-06-05] MEDS: SODIUM CHLORIDE 0.9% FLUSH 10 ML FLUSH IV FLUSH SCH ×2 (08:09→22:46)
[2017-06-05] MEDS: METOPROLOL TARTRATE 50 MG TAB PEG SCH ×2 (08:09→22:46)
[2017-06-05] MEDS: LISINOPRIL 5 MG TAB PO SCH (08:09)
[2017-06-05] MEDS: LACTIC ACID (AMMONIUM LACTATE) 12% LOTION 225 GM BTL TOPICAL SCH ×2 (08:10→22:47)
[2017-06-05 09:28] LABS: AUTOMATED NEUTROPHIL # 5.8 TH/MM3 (1.8-7.7); BASOPHIL # 0.1 TH/MM3 (0-0.2); BASOPHIL % 0.8 % (0.0-2.0); EOSINOPHIL # 0.4 TH/MM3 (0-0.4); EOSINOPHIL % 3.7 % (0.0-4.0); HEMATOCRIT 33.6 % (35.0-46.0); HEMOGLOBIN 11.1 GM/DL (11.6-15.3); LYMPH % 24.1 % (9.0-44.0); LYMPHOCYTE # 2.3 TH/MM3 (1.0-4.8); MEAN CELL VOLUME 88.5 FL (80.0-100.0); MEAN CORPUSCULAR HEMOGLOBIN 29.1 PG (27.0-34.0); MEAN CORPUSCULAR HGB CONC 32.9 % (32.0-36.0); MEAN PLATELET VOLUME 7.8 FL (7.0-11.0); MONO % 10.8 % (0.0-8.0); NEUT % 60.6 % (16.0-70.0); PLATELET COUNT 370 TH/MM3 (150-450); RED BLOOD COUNT 3.79 MIL/MM3 (4.00-5.30); RED CELL DISTRIBUTION WIDTH 17.7 % (11.6-17.2); WHITE BLOOD COUNT 9.6 TH/MM3 (4.0-11.0)
[2017-06-05 09:51] LABS: BICARBONATE 30.3 MEQ/L (21.0-32.0); CALCIUM 8.8 MG/DL (8.5-10.1); CREATININE 0.49 MG/DL (0.50-1.00)
[2017-06-05 10:29] LABS: BANDS 2 % (0-6); LYMPHOCYTES 26 % (9-44); METAMYELOCYTES 1 % (0-1); MONOCYTES 11 % (0-8); MYELOCYTES 1 % (0-0); POLYS (SEG NEUTROPHILS) 58 % (16-70); TOXIC GRANULATION 1+ (NORMAL)
--- NOTE | 2017-06-05 12:01 | HHI.IDPN ---
Note Infectious Disease Note Patient is awake and more alert. Says that she likes to sleep in. Does not answer me when I ask about pain. Afebrile. Repeat urine culture pending. 86-year-old white female who was brought to the emergency department from a [facility] facility. The patient apparently had respiratory symptoms with coughing. She has been on IV antibiotics for possible pneumonia. She also is noted to have a decubitus sacral ulceration. She has an indwelling Frederick catheter. The patient is severely demented. PAST MEDICAL HISTORY 1. Urinary tract infection 2. Hypothyroidism, 3. Dementia, 4. Bipolar disorder, 5. Schizophrenia 6. PEG placement 7. Total abdominal hysterectomy. ALLERGIES SULFA ASPIRIN CELECOXIB HALOPERIDOL RESPERIDONE CHLORPROMAZINE. ANTIBIOTICS: Ertapenem. OBJECTIVE: Vital Signs Date Time Temp Pulse Resp B/P (MAP) Pulse Ox O2 Delivery O2 Flow Rate FiO2 06/05/17 11:44 97.6 69 18 112/66 (81) 92 06/05/17 07:35 97.2 67 18 144/65 (91) 93 06/05/17 04:12 98.6 65 18 152/82 (105) 94 06/05/17 00:33 98.1 93 18 180/74 (109) 93 06/04/17 20:18 97.5 74 18 122/59 (80) 93 06/04/17 16:03 97.9 71 18 134/61 (85) 94 06/04/17 12:44 62 06/04/17 12:08 98.1 71 18 167/78 (107) 95 Laboratory Tests Test 06/04/17 07:10 06/05/17 08:39 White Blood Count 8.3 TH/MM3 9.6 TH/MM3 Red Blood Count 3.47 MIL/MM3 3.79 MIL/MM3 Hemoglobin 10.1 GM/DL 11.1 GM/DL Hematocrit 30.9 % 33.6 % Mean Corpuscular Volume 89.0 FL 88.5 FL Mean Corpuscular Hemoglobin 29.2 PG 29.1 PG Mean Corpuscular Hemoglobin Concent 32.8 % 32.9 % Red Cell Distribution Width 17.2 % 17.7 % Platelet Count 317 TH/MM3 370 TH/MM3 Mean Platelet Volume 7.8 FL 7.8 FL Neutrophils (%) (Auto) 57.4 % 60.6 % Lymphocytes (%) (Auto) 24.2 % 24.1 % Monocytes (%) (Auto) 12.8 % 10.8 % Eosinophils (%) (Auto) 5.0 % 3.7 % Basophils (%) (Auto) 0.6 % 0.8 % Neutrophils # (Auto) 4.8 TH/MM3 5.8 TH/MM3 Lymphocytes # (Auto) 2.0 TH/MM3 2.3 TH/MM3 Monocytes # (Auto) 1.1 TH/MM3 1.0 TH/MM3 Eosinophils # (Auto) 0.4 TH/MM3 0.4 TH/MM3 Basophils # (Auto) 0.1 TH/MM3 0.1 TH/MM3 CBC Comment AUTO DIFF AUTO DIFF Differential Total Cells Counted 100 100 Neutrophils % (Manual) 62 % 58 % Band Neutrophils % 3 % 2 % Lymphocytes % 24 % 26 % Monocytes % 9 % 11 % Basophils % 1 % Neutrophils # (Manual) 5.5 TH/MM3 6.0 TH/MM3 Metamyelocytes 1 % 1 % Differential Comment FINAL DIFF MANUAL FINAL DIFF MANUAL Platelet Estimate NORMAL NORMAL Platelet Morphology Comment NORMAL NORMAL Eosinophils % 1 % Myelocytes 1 % Toxic Granulation 1+ Laboratory Tests Test 06/04/17 07:10 06/05/17 08:39 Blood Urea Nitrogen 12 MG/DL 9 MG/DL Creatinine 0.49 MG/DL 0.49 MG/DL Random Glucose 85 MG/DL 73 MG/DL Calcium Level 8.6 MG/DL 8.8 MG/DL Sodium Level 142 MEQ/L 140 MEQ/L Potassium Level 4.4 MEQ/L 4.3 MEQ/L Chloride Level 108 MEQ/L 105 MEQ/L Carbon Dioxide Level 30.3 MEQ/L 30.3 MEQ/L Anion Gap 4 MEQ/L 5 MEQ/L Estimat Glomerular Filtration Rate 120 ML/MIN 120 ML/MIN PHYSICAL EXAMINATION GENERAL: Awake. No acute distress. HEENT: Head is atraumatic. Extraocular movements are grossly intact, pupils reactive to light. No icterus. Oropharynx moist mucosa. (+) thrush. NECK: Supple. LUNGS: Decreased breath sounds HEART: Regular S1 and S2. No audible murmur. ABDOMEN: Bowel sounds present, soft. No tenderness appreciated. Frederick catheter has yellow urine. EXTREMITIES: No clubbing or cyanosis, no edema. Contractures of the lower extremities. NEUROLOGIC: Difficult to assess. PSYCHIATRIC: Difficult to assess. IMPRESSION 1. Urinary tract infection due to ESBL E-coli. Urine culture also growing Pseudomonas. 2. Severe dementia. 3. Reportedly, the patient had respiratory symptoms, but negative chest x-ray and no clear signs of pneumonia. RECOMMENDATIONS 1. Continue Ertapenem. 2. Follow the repeat urine culture which has been ordered for today. 3. Monitor clinical status. 4. Diflucan for thrush. I will follow the urine culture from today and adjust antibiotics depending on the urine culture. Stevenson Mcneill MD Jun 05, 2017 12:01
[2017-06-05] MEDS: ERTAPENEM INJ 1,000 MG in SODIUM CHLORIDE 0.9% INJ 100 ML IV SCH (22:36)
[2017-06-05] MEDS: MIRTAZAPINE 15 MG TAB PEG SCH (22:45)
[2017-06-05] MEDS: PRAVASTATIN SOD 10 MG TAB PEG SCH (22:45)
[2017-06-06] VITALS (9 sets, daily range): BP systolic 103–119; BP diastolic 48–85; PULSE 55–79; RESP 16–22; TEMP 97.2–98.6; O2SAT 90–93
[2017-06-06] MEDS: LEVOTHYROXINE SODIUM 100 MCG TAB PEG SCH (05:28)
[2017-06-06] MEDS: ENOXAPARIN SODIUM 30 MG/0.3 ML SYRINGE SQ SCH (05:28)
--- NOTE | 2017-06-06 08:48 | HHI.PR ---
Subjective Remarks hob elevated, want bed flat. Has TF running Objective Vital Signs Date Time Temp Pulse Resp B/P (MAP) Pulse Ox O2 Delivery O2 Flow Rate FiO2 06/06/17 04:00 97.6 58 22 103/48 (66) 92 06/06/17 00:00 97.2 55 21 109/53 (71) 93 06/05/17 22:51 Room Air 06/05/17 20:00 97.6 67 18 141/65 (90) 92 06/05/17 16:32 97.0 65 17 117/56 (76) 93 06/05/17 16:00 63 06/05/17 12:37 52 06/05/17 11:44 97.6 69 18 112/66 (81) 92 I/O 06/05/17 06/05/17 06/05/17 06/06/17 06/06/17 06/06/17 07:00 15:00 23:00 07:00 15:00 23:00 Output Total 550 ml 200 ml 200 ml Balance -550 ml -200 ml -200 ml Output Urine Total 550 ml 200 ml 200 ml # Bowel Movements 1 1 Result Diagram: 06/05/17 0839 06/05/17 0839 Imaging Laboratory Tests Test 06/04/17 07:10 06/05/17 08:39 Red Blood Count 3.47 MIL/MM3 (4.00-5.30) 3.79 MIL/MM3 (4.00-5.30) Hemoglobin 10.1 GM/DL (11.6-15.3) 11.1 GM/DL (11.6-15.3) Hematocrit 30.9 % (35.0-46.0) 33.6 % (35.0-46.0) Monocytes (%) (Auto) 12.8 % (0.0-8.0) 10.8 % (0.0-8.0) Eosinophils (%) (Auto) 5.0 % (0.0-4.0) Monocytes # (Auto) 1.1 TH/MM3 (0-0.9) 1.0 TH/MM3 (0-0.9) Monocytes % 9 % (0-8) 11 % (0-8) Creatinine 0.49 MG/DL (0.50-1.00) 0.49 MG/DL (0.50-1.00) Chloride Level 108 MEQ/L (98-107) Anion Gap 4 MEQ/L (5-15) Red Cell Distribution Width 17.7 % (11.6-17.2) Myelocytes 1 % (0-0) Toxic Granulation 1+ (NORMAL) Random Glucose 73 MG/DL (74-106) Objective Remarks PHYSICAL EXAMINATION GENERAL: Awake, sleepy LUNGS: equal B/L, HEART: RRR ABDOMEN: Belly soft non tender. EXTREMITIES: Contracted b/l le. Frederick to bedside Medications and IVs Current Medications Medications (Trade) Dose Ordered Sig/Db Route Start Time Stop Time Status Last Admin (Albuterol Neb) 0.63 mg Q6HR NEB PRN NEB 06/01/17 06:00 06/02/17 01:53 (Vitamin C) 500 mg BID PEG 06/01/17 09:00 06/06/17 09:11 (Plavix) 75 mg DAILY PEG 06/01/17 09:00 06/06/17 09:10 (Lac-Hydrin 12% Lotion) 1 applic BID TOPICAL 06/01/17 09:00 06/05/17 22:47 (Prevacid Odt) 30 mg DAILY PEG 06/01/17 09:00 06/06/17 09:12 (Synthroid) 100 mcg DAILY@0600 PEG 06/01/17 06:00 06/06/17 05:28 (Milk Of Magnesia Liq) 30 ml HS PRN PEG 06/01/17 06:00 (Lopressor) 50 mg BID PEG 06/01/17 09:00 06/06/17 09:09 (Remeron) 15 mg HS PEG 06/01/17 21:00 06/05/17 22:45 (Pravachol) 10 mg HS PEG 06/01/17 21:00 06/05/17 22:45 (Aldactone) 25 mg DAILY PEG 06/01/17 09:00 06/06/17 09:11 (Theragran M Tab) 1 tab DAILY PEG 06/01/17 09:00 06/06/17 09:09 (NS Flush) 2 ml UNSCH PRN IV FLUSH 06/01/17 06:00 (NS Flush) 2 ml BID IV FLUSH 06/01/17 09:00 06/06/17 09:00 (Tylenol 650 Mg/ 20 ml Liq) 650 mg Q4H PRN PEG 06/01/17 06:30 (Lovenox Inj) 30 mg Q24H SQ 06/01/17 06:00 06/06/17 05:28 (Narcan Inj) 0.4 mg UNSCH PRN IV PUSH 06/01/17 06:00 (Peggy-Colace) 1 tab BID PO 06/01/17 09:00 06/05/17 08:07 (Milk Of Magnesia Liq) 30 ml Q12H PRN PO 06/01/17 06:00 (Senokot) 17.2 mg Q12H PRN PO 06/01/17 06:00 (Dulcolax Supp) 10 mg DAILY PRN RECTAL 06/01/17 06:00 (Lactulose Liq) 30 ml DAILY PRN PO 06/01/17 06:00 (Depakote Sprinkles) 250 mg BID G-TUBE 06/01/17 21:00 06/06/17 09:12 Ertapenem 1000 mg/ Sodium Chloride 100 ml @ 200 mls/hr Q24H IV 06/02/17 21:00 06/05/17 22:36 (Diflucan) 100 mg DAILY PO 06/03/17 16:30 06/06/17 09:11 (Mycostatin Liq) 5 ml QID SWISH-SWAL 06/03/17 18:00 06/05/17 22:42 (Prinivil) 5 mg DAILY PO 06/05/17 09:00 06/06/17 09:09 Assessment and Plan Problem List: (1) ESBL (extended spectrum beta-lactamase) producing bacteria infection ICD Codes: A49.9 - Bacterial infection, unspecified; Z16.12 - Extended spectrum beta lactamase (ESBL) resistance Plan: ID following, cont with Ertapenem IV Contact Isolation continues to be Afebrile Urine culture pending from 06/05 (2) HTN (hypertension) ICD Codes: I10 - Essential (primary) hypertension Plan: B/P running any where from 140- 180 systolic. Unsure if this is r/t refusing medication because of severe dementia. low this am will cont to monitor (3) Sacral decubitus ulcer ICD Codes: L89.159 - Pressure ulcer of sacral region, unspecified stage Status: Acute Plan: wound care Following, order for calcium alginate q3 days r/t patient cooperation (4) Thrush ICD Codes: B37.0 - Candidal stomatitis Plan: Nystatin, swish and swallow, Diflucan. Unable to asses improvement (5) Malnutrition ICD Codes: E46 - Unspecified protein-calorie malnutrition Status: Acute Plan: Cont with Eternal feeding. Problem Qualifiers (1) Sacral decubitus ulcer: Qualified Codes: L89.154 - Pressure ulcer of sacral region, stage 4 (2) Malnutrition: Joyce Smith Jun 06, 2017 08:48
[2017-06-06] MEDS: LACTIC ACID (AMMONIUM LACTATE) 12% LOTION 225 GM BTL TOPICAL SCH ×2 (09:00→21:00)
[2017-06-06] MEDS: SODIUM CHLORIDE 0.9% FLUSH 10 ML FLUSH IV FLUSH SCH ×2 (09:00→21:41)
[2017-06-06] MEDS: DOCUSATE SODIUM 50 MG/SENNA 8.6 MG TAB PO SCH ×2 (09:00→21:41)
[2017-06-06] MEDS: NYSTATIN SUSP 500,000 U/5 ML CUP SWISH-SWAL SCH ×4 (09:00→21:41)
[2017-06-06] MEDS: MULTIVITAMINS/MINERALS THERAPEUTIC TAB PEG SCH (09:09)
[2017-06-06] MEDS: METOPROLOL TARTRATE 50 MG TAB PEG SCH ×2 (09:09→21:41)
[2017-06-06] MEDS: LISINOPRIL 5 MG TAB PO SCH (09:09)
[2017-06-06] MEDS: CLOPIDOGREL 75 MG TAB PEG SCH (09:10)
[2017-06-06] MEDS: ASCORBIC ACID 500 MG TAB PEG SCH ×2 (09:11→21:41)
[2017-06-06] MEDS: FLUCONAZOLE 100 MG TAB PO SCH (09:11)
[2017-06-06] MEDS: SPIRONOLACTONE 25 MG TAB PEG SCH (09:11)
[2017-06-06] MEDS: DIVALPROEX SODIUM SPRINKLES 125 MG CAP G-TUBE SCH ×2 (09:12→21:40)
[2017-06-06] MEDS: LANSOPRAZOLE SOLUTAB 30 MG TAB PEG SCH (09:12)
[2017-06-06 12:50] LABS: AUTOMATED NEUTROPHIL # 6.9 TH/MM3 (1.8-7.7); BASOPHIL # 0.1 TH/MM3 (0-0.2); BASOPHIL % 0.9 % (0.0-2.0); EOSINOPHIL # 0.4 TH/MM3 (0-0.4); EOSINOPHIL % 3.4 % (0.0-4.0); HEMATOCRIT 33.5 % (35.0-46.0); HEMOGLOBIN 11.1 GM/DL (11.6-15.3); LYMPH % 19.5 % (9.0-44.0); MEAN CELL VOLUME 88.5 FL (80.0-100.0); MEAN CORPUSCULAR HEMOGLOBIN 29.4 PG (27.0-34.0); MEAN CORPUSCULAR HGB CONC 33.3 % (32.0-36.0); MEAN PLATELET VOLUME 7.8 FL (7.0-11.0); MONO % 9.3 % (0.0-8.0); NEUT % 66.9 % (16.0-70.0); PLATELET COUNT 371 TH/MM3 (150-450); RED BLOOD COUNT 3.78 MIL/MM3 (4.00-5.30); RED CELL DISTRIBUTION WIDTH 17.8 % (11.6-17.2); WHITE BLOOD COUNT 10.3 TH/MM3 (4.0-11.0)
[2017-06-06 13:29] LABS: BICARBONATE 29.2 MEQ/L (21.0-32.0); CALCIUM 8.9 MG/DL (8.5-10.1); CREATININE 0.41 MG/DL (0.50-1.00)
[2017-06-06] MEDS: ERTAPENEM INJ 1,000 MG in SODIUM CHLORIDE 0.9% INJ 100 ML IV SCH (21:40)
[2017-06-06] MEDS: MIRTAZAPINE 15 MG TAB PEG SCH (21:41)
[2017-06-06] MEDS: PRAVASTATIN SOD 10 MG TAB PEG SCH (21:41)
[2017-06-07] VITALS (18 sets, daily range): BP systolic 101–142; BP diastolic 47–84; PULSE 58–176; RESP 18–26; TEMP 97.2–98; O2SAT 89–100
[2017-06-07] MEDS ORDERED: DEXTROSE 5% IN WATE 1000ML INJ 1,000 ML IV SCH (04:00)
[2017-06-07] MEDS ORDERED: GLUCAGON 1 MG/ML VIAL OTHER PRN (04:00)
[2017-06-07] MEDS ORDERED: DEXTROSE 50% IN WATER 50 ML VIAL(D50) IV PUSH PRN (04:00)
[2017-06-07] MEDS: DEXT 5%-NACL 0.9% 1000 ML INJ 1,000 ML IV SCH ×2 (04:35→17:47)
[2017-06-07] MEDS: LEVOTHYROXINE SODIUM 100 MCG TAB PEG SCH (05:24)
[2017-06-07] MEDS: ENOXAPARIN SODIUM 30 MG/0.3 ML SYRINGE SQ SCH (06:26)
[2017-06-07] MEDS: SODIUM CHLORIDE 0.9% FLUSH 10 ML FLUSH IV FLUSH SCH ×2 (07:58→20:13)
[2017-06-07] MEDS: SPIRONOLACTONE 25 MG TAB PEG SCH (08:01)
[2017-06-07] MEDS: ASCORBIC ACID 500 MG TAB PEG SCH ×2 (08:01→20:13)
[2017-06-07] MEDS: METOPROLOL TARTRATE 50 MG TAB PEG SCH ×2 (08:01→20:13)
[2017-06-07] MEDS: MULTIVITAMINS/MINERALS THERAPEUTIC TAB PEG SCH (08:01)
[2017-06-07] MEDS: LANSOPRAZOLE SOLUTAB 30 MG TAB PEG SCH (08:01)
[2017-06-07] MEDS: CLOPIDOGREL 75 MG TAB PEG SCH (08:01)
[2017-06-07] MEDS: DIVALPROEX SODIUM SPRINKLES 125 MG CAP G-TUBE SCH ×2 (08:01→20:13)
[2017-06-07] MEDS: NYSTATIN SUSP 500,000 U/5 ML CUP SWISH-SWAL SCH ×4 (08:02→20:12)
[2017-06-07] MEDS: DOCUSATE SODIUM 50 MG/SENNA 8.6 MG TAB PO SCH ×2 (08:02→20:12)
[2017-06-07] MEDS: FLUCONAZOLE 100 MG TAB PO SCH (08:02)
[2017-06-07] MEDS: LACTIC ACID (AMMONIUM LACTATE) 12% LOTION 225 GM BTL TOPICAL SCH ×2 (08:02→21:00)
[2017-06-07] MEDS: LISINOPRIL 5 MG TAB PO SCH (08:02)
[2017-06-07 08:34] LABS: AUTOMATED NEUTROPHIL # 10.2 TH/MM3 (1.8-7.7); BASOPHIL # 0.1 TH/MM3 (0-0.2); BASOPHIL % 0.5 % (0.0-2.0); EOSINOPHIL # 0.3 TH/MM3 (0-0.4); EOSINOPHIL % 1.9 % (0.0-4.0); HEMATOCRIT 36.1 % (35.0-46.0); HEMOGLOBIN 11.6 GM/DL (11.6-15.3); LYMPH % 17.5 % (9.0-44.0); LYMPHOCYTE # 2.5 TH/MM3 (1.0-4.8); MEAN CELL VOLUME 89.5 FL (80.0-100.0); MEAN CORPUSCULAR HEMOGLOBIN 28.8 PG (27.0-34.0); MEAN CORPUSCULAR HGB CONC 32.2 % (32.0-36.0); MEAN PLATELET VOLUME 7.8 FL (7.0-11.0); MONO % 7.9 % (0.0-8.0); MONOCYTE # 1.1 TH/MM3 (0-0.9); NEUT % 72.2 % (16.0-70.0); PLATELET COUNT 417 TH/MM3 (150-450); RED BLOOD COUNT 4.04 MIL/MM3 (4.00-5.30); RED CELL DISTRIBUTION WIDTH 17.9 % (11.6-17.2); WHITE BLOOD COUNT 14.2 TH/MM3 (4.0-11.0)
[2017-06-07] MEDS: RESP: ALBUTEROL 0.63 MG/3 ML NEB (PRN) NEB (08:36)
[2017-06-07 09:01] LABS: BICARBONATE 29.6 MEQ/L (21.0-32.0); CALCIUM 9.4 MG/DL (8.5-10.1); CREATININE 0.54 MG/DL (0.50-1.00)
--- NOTE | 2017-06-07 09:29 | RADRPT ---
EXAM DATE/TIME: 06/07/2017 08:54 [facility] COMPARISON: CHEST SINGLE AP, June 02, 2017, 4:12. INDICATIONS : Possible aspiration. MEDICAL HISTORY : Hyperthyroidism. A-Fib, Angina, CVA, GERD, Stretched esophagus, Hiatal hernia, HTN, Contracted SURGICAL HISTORY : Hernia reapair, Appendectomy, Cholecystectomy, Hysterectomy, PEG tube ENCOUNTER: Initial ACUITY: 1 day PAIN SCORE: Non-responsive. LOCATION: Bilateral chest FINDINGS: Right lung is clear. Patchy consolidation in the left lower lobe. Cardiomegaly. There is also develop ing airspace disease in the left upper lobe. Degenerative changes of the spine. CONCLUSION: Left lung airspace disease. Kristopher Poole MD on June 07, 2017 at 9:27 Board Certified Radiologist. This report was verified electronically.
[2017-06-07] MEDS ORDERED: ROCURONIUM INJ 50 MG/5 ML VIAL ONE (10:20)
--- NOTE | 2017-06-07 10:56 | PD.CONS ---
[facility] Service Critical Care Medicine Consult Requested By Dr. Monreal Reason for Consult Respiratory failure respiratory failure Primary Care Physician Unknown History of Present Illness This is an 86-year-old female. Date of admission 06/01/2017. Date of consultation 06/07/2017. 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 She was diagnosed with a urinary tract infection.. She had a stage IV sacral decubitus ulcer 11 x 7 cm in wound care with infectious disease was consulted to evaluate that aspect of her care. Patient was treated with ertapenem form BSL positive E. coli urinary tract infection/Pseudomonas UTI and stage IV sacral decubitus ulcer. Last night, patient became confused and pulled out her PEG tube. This morning she had an acute decline in respiratory status including hypoxia and hypercapnia. Chest x- ray revealed left lower lobe infiltrate versus mucous plugging. A rapid response team was called the patient was transferred on 522. Upon my arrival, patient was tachypneic with saturations in the low 80s. Patient was emergently intubated/fiberoptic bronchoscopy was performed emergently as able to to contact son and central line placed due to extremely poor IV access. Review of Systems ROS Limitations: Intubated Past Family Social History Allergies: Coded Allergies: Sulfa (Sulfonamide Antibiotics) (Unverified Allergy, Unknown, 06/01/17) celecoxib (Unverified Allergy, Unknown, 06/01/17) haloperidol (Unverified Allergy, Unknown, 06/01/17) risperidone (Unverified Allergy, Unknown, 06/01/17) aspirin (Unverified Adverse Reaction, Intermediate, NOSE BLEEDS, 06/01/17) chlorpromazine (Unverified Adverse Reaction, Intermediate, CRAMPS, 06/01/17 ) *MDRO Multi-Drug Resistant Organism (Verified Adverse Reaction, Unknown, ESBL, 06/01/17) ESBL (urine) 09/05/16, 10/17/16 Past Medical History Stage IV sacral decubitus ulcer End-stage dementia disorder Bipolar disorder Schizophrenia disorder not defined Hypertension Dyslipidemia History of recurrent multidrug resistant urinary tract infections Insomnia Peripheral vascular disease Atherosclerotic vascular disease Seizure disorder Hard of hearing History of pseudomembranous colitis Past Surgical History Total abdominal hysterectomy Thyroidectomy Cholecystectomy Appendectomy Left total knee replacement Nabeel fundoplication History of esophageal dilatation Reported Medications Albuterol nebulizers every 6 hours as needed Clopidogrel bisulfate 75 mg by PEG. daily Pravastatin 10 mg by PEG. daily Metoprolol succinate 50 mg by PEG. twice daily Spironolactone 25 mg by PEG. t once a day Divalproex 250 mg by PEG twice daily Mirtazapine 15 mg by PEG. at bedtime Omeprazole 30 mg by PEG daily Active Ordered Medications Reviewed in EMR Family History Her parents are . Not documented in reviewing past medical history. Stated "difficult to obtain" in reviewing 8 previous H&P's Social History Quit tobacco 20 years ago. No degradation of alcohol or illicit drug use. Physical Exam Vital Signs Vital Signs Date Time Temp Pulse Resp B/P (MAP) Pulse Ox O2 Delivery O2 Flow Rate FiO2 06/07/17 09:03 92 Non-Rebreather 15.00 06/07/17 08:36 90 Simple Mask 10.00 06/07/17 08:03 96 Room Air 06/07/17 08:00 97.5 68 19 120/60 (80) 89 06/07/17 04:03 60 06/07/17 02:21 100 Room Air 06/07/17 01:35 176 06/07/17 00:00 58 06/07/17 00:00 97.4 85 18 137/84 (101) 98 06/06/17 23:10 88 Room Air 06/06/17 20:17 98.0 79 16 118/85 (96) 90 06/06/17 20:00 67 06/06/17 17:58 61 06/06/17 16:00 98.6 66 16 115/55 (75) 90 06/06/17 12:00 98.0 73 16 119/60 (79) 91 Physical Exam GENERAL: 86-year-old female currently orotracheally intubated SKIN: Warm and dry. Stage IV sacral decubitus ulcer 11 x 7 cm, 2 lateral foot 2 x 1 cm stage II ulcers HEAD: Atraumatic. Normocephalic. EYES: Pupils equal and round about 3 mm bilaterally and reactive. No scleral icterus. No injection or drainage. ENT: No nasal bleeding or discharge. Mucous membranes pink and moist. NECK: Trachea midline. No JVD. CARDIOVASCULAR: Regular rate and rhythm. S1, S2. No S4. RESPIRATORY: Diminished breath sounds involving the left lower lobe. No wheezing. GASTROINTESTINAL: Abdomen soft, non-tender, nondistended. PEG tube site is removed and the left upper quadrant. No bleeding is appreciated MUSCULOSKELETAL: Extremities without significant peripheral edema. Patient appears to be alexia the bilateral upper extremities and lower extremities NEUROLOGICAL: Currently orotracheally intubated. Positive gag and corneal reflex. Moving all 4 extremities spontaneously but not to command. Laboratory Laboratory Tests Test 06/06/17 12:15 06/07/17 04:55 06/07/17 07:42 06/07/17 08:40 White Blood Count 10.3 14.2 Red Blood Count 3.78 4.04 Hemoglobin 11.1 11.6 Hematocrit 33.5 36.1 Mean Corpuscular Volume 88.5 89.5 Mean Corpuscular Hemoglobin 29.4 28.8 Mean Corpuscular Hemoglobin Concent 33.3 32.2 Red Cell Distribution Width 17.8 17.9 Platelet Count 371 417 Mean Platelet Volume 7.8 7.8 Neutrophils (%) (Auto) 66.9 72.2 Lymphocytes (%) (Auto) 19.5 17.5 Monocytes (%) (Auto) 9.3 7.9 Eosinophils (%) (Auto) 3.4 1.9 Basophils (%) (Auto) 0.9 0.5 Neutrophils # (Auto) 6.9 10.2 Lymphocytes # (Auto) 2.0 2.5 Monocytes # (Auto) 1.0 1.1 Eosinophils # (Auto) 0.4 0.3 Basophils # (Auto) 0.1 0.1 CBC Comment DIFF FINAL DIFF FINAL Differential Comment Blood Urea Nitrogen 10 8 Creatinine 0.41 0.54 Random Glucose 80 80 93 Calcium Level 8.9 9.4 Sodium Level 140 141 Potassium Level 4.4 5.1 Chloride Level 106 106 Carbon Dioxide Level 29.2 29.6 Anion Gap 5 5 Estimat Glomerular Filtration Rate 148 108 Blood Gas Puncture Site RT RADIAL Blood Gas Patient Temperature 98.6 Blood Gas HCO3 28 Blood Gas Base Excess 3.8 Blood Gas Oxygen Saturation 81 Arterial Blood pH 7.45 Arterial Blood Partial Pressure CO2 40 Arterial Blood Partial Pressure O2 47 Arterial Blood Oxygen Content 12.7 Arterial Blood Carboxyhemoglobin 1.4 Arterial Blood Methemoglobin 0.5 Blood Gas Hemoglobin 11.1 Oxygen Delivery Device MASK Blood Gas Liter Flow 8 Date/Time Source Procedure Growth Status 06/05/17 19:44 Urine Catheterized Urine Urine Culture - Preliminary Gram Negative Tanner Resulted Result Diagram: 06/07/17 0742 06/07/17 0742 Imaging Last Impressions Chest X-Ray 06/07/17 0000 Signed Impressions: Service Date/Time: Wednesday, June 07, 2017 08:54 - CONCLUSION: Left lung airspace disease. Kristopher Poole MD Septic Shock Reassessment Septic shock perfusion: reassessment completed Assessment and Plan Assessment and Plan Neuro/Psych: Dementia disorder NOS Bipolar disorder Schizophrenia disorder NOS Acute toxic metabolic encephalopathy secondary hypoxia Seizure disorder NOS Hard of hearing Currently a propofol/fentanyl drips for sedation/analgesia while intubated Goal of RA SS -2 Daily sedation vacation Acetaminophen 600 mg by PEG every 6 hours as needed fever Currently on Depakote 250 mg by tube twice daily. Check valproic acid level Currently on mirtazapine 50 mg at night. Continue CV: Hypertension Dyslipidemia Atherosclerotic vascular disease Currently on D5 normal saline at 75 cc an hour Metoprolol succinate 50 mg by PEG twice daily/home medication Spironolactone 25 mg p.o. daily has been held Continue clopidogrel bisulfate 75 mg daily for Resp: Acute respiratory failure secondary to left lower lobe pneumonia GI: Self removal of PEG tube Gastroesophageal reflux disease History of esophageal dilatation/dislocation Status post PEG tube placement Constipation Currently n.p.o. status post PEG tube replacement NG tube has been placed while intubated Replaced by Dr. Smith/GI at bedside. Gastrografin pending to confirm placement Currently n.p.o. with NG tube placed Omeprazole 30 mg by PEG for GI prophylaxis Docusate sodium/senna 100 mg/8.6 mg 1 tablet by PEG twice daily for bowel regimen : Recurrent urinary tract infections Frederick catheter has been placed for accurate I's and O's in a critically ill patient Endo: Hypothyroidism Novulog sliding scale insulin with Accu-Cheks every 6 hours to maintain euglycemia Currently on levothyroxine 100 mcg daily Check TSH Renal: Creatinine currently within normal limits Monitor urine output Accurate I's and O's Heme: CBC currently within normal limits Currently on enoxaparin 30 mg subcu daily for DVT prophylaxis ID: E. coli ESBL positive/Pseudomonas urinary tract infection Sacral decubitus ulcer Currently on ertapenem 1 g every 24 hours. Currently on fluconazole 100 mg by tube daily Followed by infectious disease/Dr. Mcneill Pertinent cultures 06/05 -urine -gram-negative tanner 06/01 -urine -ESBL positive E. coli/pseudomonas MSK: Generalized debilitation PT evaluate and treat FEN: Replace electrolytes as clinically indicated Access -Utilize right IJ CVL day #1 placed 06/07 Prophylaxis -GI -omeprazole -DVT -SCD/enoxaparin Critical Care: The total critical care time was 35 minutes. Time to perform other separately billable procedures was not included in the critical care time. Code Status Full code Discussed Condition With Patient. Care plan discussed and all questions answered. Soren Reyes MD Jun 07, 2017 10:56
[2017-06-07] MEDS ORDERED: PROPOFOL 1000 MG/100 ML INJ 100 ML IV PRN (11:00)
[2017-06-07] MEDS ORDERED: ROCURONIUM INJ 50 MG/5 ML VIAL IV ONE (11:15)
[2017-06-07] MEDS ORDERED: RASS Change Order XX ONE (11:15)
[2017-06-07] MEDS ORDERED: ETOMIDATE 40 MG/20 ML VIAL IV PUSH ONE (11:15)
[2017-06-07] MEDS ORDERED: ROCURONIUM INJ 100 MG/10 ML VIAL IV ONE (11:15)
--- NOTE | 2017-06-07 11:28 | RADRPT ---
EXAM DATE/TIME: 06/07/2017 10:46 [facility] COMPARISON: CHEST SINGLE AP, June 07, 2017, 8:54. INDICATIONS : Respiratory failure. MEDICAL HISTORY : None. SURGICAL HISTORY : None. ENCOUNTER: Subsequent ACUITY: 1 week PAIN SCORE: Non-responsive. LOCATION: chest FINDINGS: Right lung is clear. Cardiomegaly and left lower lobe consolidation, possible small left effusion not ed. Degenerative changes of the spine. Endotracheal tube and enteric tube identified. CONCLUSION: Left lower lobe consolidation. Interval endotracheal tube and enteric tube placement. Kristopher Poole MD on June 07, 2017 at 11:26 Board Certified Radiologist. This report was verified electronically.
--- NOTE | 2017-06-07 11:46 | HHI.PR ---
Subjective Remarks transferred to ICU resp distress Objective Vital Signs Date Time Temp Pulse Resp B/P (MAP) Pulse Ox O2 Delivery O2 Flow Rate FiO2 06/07/17 10:58 97 100 06/07/17 09:03 92 Non-Rebreather 15.00 06/07/17 08:36 90 Simple Mask 10.00 06/07/17 08:03 96 Room Air 06/07/17 08:00 97.5 68 19 120/60 (80) 89 06/07/17 04:03 60 06/07/17 02:21 100 Room Air 06/07/17 01:35 176 06/07/17 00:00 58 06/07/17 00:00 97.4 85 18 137/84 (101) 98 06/06/17 23:10 88 Room Air 06/06/17 20:17 98.0 79 16 118/85 (96) 90 06/06/17 20:00 67 06/06/17 17:58 61 06/06/17 16:00 98.6 66 16 115/55 (75) 90 06/06/17 12:00 98.0 73 16 119/60 (79) 91 I/O 06/06/17 06/06/17 06/06/17 06/07/17 06/07/17 06/07/17 07:00 15:00 23:00 07:00 15:00 23:00 Intake Total 445 ml Output Total 200 ml Balance -200 ml 445 ml Intake Oral 50 ml Tube Feeding 195 ml Other 200 ml Output Urine Total 200 ml # Bowel Movements 1 Result Diagram: 06/07/17 0742 06/07/17 0742 Objective Remarks Sedated, on mechanical ventilation Medications and IVs Current Medications Medications (Trade) Dose Ordered Sig/Db Route Start Time Stop Time Status Last Admin (Vitamin C) 500 mg BID PEG 06/01/17 09:00 06/06/17 21:41 (Plavix) 75 mg DAILY PEG 06/01/17 09:00 06/06/17 09:10 (Lac-Hydrin 12% Lotion) 1 applic BID TOPICAL 06/01/17 09:00 06/06/17 21:00 (Prevacid Odt) 30 mg DAILY PEG 06/01/17 09:00 06/06/17 09:12 (Synthroid) 100 mcg DAILY@0600 PEG 06/01/17 06:00 06/06/17 05:28 (Milk Of Magnesia Liq) 30 ml HS PRN PEG 06/01/17 06:00 (Lopressor) 50 mg BID PEG 06/01/17 09:00 06/06/17 21:41 (Remeron) 15 mg HS PEG 06/01/17 21:00 06/06/17 21:41 (Pravachol) 10 mg HS PEG 06/01/17 21:00 06/06/17 21:41 (Aldactone) 25 mg DAILY PEG 06/01/17 09:00 06/06/17 09:11 (Theragran M Tab) 1 tab DAILY PEG 06/01/17 09:00 06/06/17 09:09 (NS Flush) 2 ml UNSCH PRN IV FLUSH 06/01/17 06:00 (NS Flush) 2 ml BID IV FLUSH 06/01/17 09:00 06/06/17 21:41 (Tylenol 650 Mg/ 20 ml Liq) 650 mg Q4H PRN PEG 06/01/17 06:30 (Lovenox Inj) 30 mg Q24H SQ 06/01/17 06:00 06/07/17 06:26 (Narcan Inj) 0.4 mg UNSCH PRN IV PUSH 06/01/17 06:00 (Peggy-Colace) 1 tab BID PO 06/01/17 09:00 06/06/17 21:41 (Milk Of Magnesia Liq) 30 ml Q12H PRN PO 06/01/17 06:00 (Senokot) 17.2 mg Q12H PRN PO 06/01/17 06:00 (Dulcolax Supp) 10 mg DAILY PRN RECTAL 06/01/17 06:00 (Lactulose Liq) 30 ml DAILY PRN PO 06/01/17 06:00 (Depakote Sprinkles) 250 mg BID G-TUBE 06/01/17 21:00 06/06/17 21:40 Ertapenem 1000 mg/ Sodium Chloride 100 ml @ 200 mls/hr Q24H IV 06/02/17 21:00 06/06/17 21:40 (Diflucan) 100 mg DAILY PO 06/03/17 16:30 06/06/17 09:11 (Mycostatin Liq) 5 ml QID SWISH-SWAL 2/26/18 18:00 06/06/17 21:41 (Prinivil) 5 mg DAILY PO 06/05/17 09:00 06/06/17 09:09 (D50w (Vial) Inj) 50 ml UNSCH PRN IV PUSH 06/07/17 04:00 (Glucagon Inj) 1 mg UNSCH PRN OTHER 06/07/17 04:00 Dextrose/Sodium Chloride 1,000 ml @ 75 mls/hr [id number] IV 06/07/17 05:00 06/07/17 04:35 (Peridex 0.12% Liq) 15 ml BID@08,20 MT 06/07/17 20:00 Propofol 100 ml @ 1.89 mls/hr TITRATE PRN IV 06/07/17 11:00 Fentanyl Citrate 250 ml @ 5 mls/hr TITRATE PRN IV 06/07/17 11:15 (Duoneb Neb) 1 ampule Q6HR NEB NEB 06/07/17 16:00 (Albuterol Neb) 2.5 mg Q2HR NEB PRN NEB 06/07/17 11:15 (Zemuron Inj) 50 mg BOLUS ONCE IV 06/07/17 11:15 06/07/17 11:16 UNV Assessment and Plan Problem List: (1) Respiratory failure ICD Codes: J96.90 - Respiratory failure, unspecified, unspecified whether with hypoxia or hypercapnia Plan: transferred to ICU, placed on Mechanical ventilation Liner Roll Changer consulted Palliative care consult (2) ESBL (extended spectrum beta-lactamase) producing bacteria infection ICD Codes: A49.9 - Bacterial infection, unspecified; Z16.12 - Extended spectrum beta lactamase (ESBL) resistance Plan: ID following, Urine Clear per ID (3) HTN (hypertension) ICD Codes: I10 - Essential (primary) hypertension Plan: controlled, cont to monitor (4) Sacral decubitus ulcer ICD Codes: L89.159 - Pressure ulcer of sacral region, unspecified stage Status: Acute Plan: wound care Following, order for calcium alginate q3 days r/t patient cooperation (5) Thrush ICD Codes: B37.0 - Candidal stomatitis Plan: Nystatin, swish and swallow, Diflucan. Unable to asses improvement (6) Malnutrition ICD Codes: E46 - Unspecified protein-calorie malnutrition Status: Acute Plan: Cont with Eternal feeding. Problem Qualifiers (1) Sacral decubitus ulcer: Qualified Codes: L89.154 - Pressure ulcer of sacral region, stage 4 (2) Malnutrition: Joyce Smith Jun 07, 2017 11:46
--- NOTE | 2017-06-07 11:59 | PD.PROCEDR ---
Procedure Note Procedure DATE: 06/07/2017 CENTRAL LINE PLACEMENT: Right internal jugular vein. Ultrasound-guided INDICATION: Central venous access CONSENT Informed consent for procedure not obtaining considered emergent due to hypotension/lack of peripheral IV access DESCRIPTION OF THE PROCEDURE The patient was placed in supine position. The skin was cleansed with Chloraprep. Additional barrier precautions included large sterile drape, sterile gloves, sterile gown, face mask, and hat. 1 % lidocaine was used for local anesthesia. Under direct ultrasound guidance and on initial attempt, the vein was accessed with an introducer needle. The guide wire was advanced and the tract was dilated. Using Seldinger technique a 7 [place] 20 cm antimicrobial coated triple-lumen catheter was advanced to a depth of 16 centimeters. The guide wire was removed. All ports had good return of dark venous blood and flushed easily with saline. The central line was secured with StatLock that was not sticking to skin.. A sterile dressing with antibiotic disc was applied. ESTIMATED BLOOD LOSS: Minimal COMPLICATIONS: No apparent complications. STAT chest x-ray pending at time of dictation Soren Reyes MD Jun 07, 2017 11:59
[2017-06-07] MEDS ORDERED: SODIUM CHLORIDE 0.9% FLUSH 10 ML FLUSH IV FLUSH PRN (12:00)
--- NOTE | 2017-06-07 12:00 | PD.PROCEDR ---
Procedure Note Procedure DATE: 06/07/17 PROCEDURE: Orotracheal intubation INDICATION: Respiratory failure DETAILS OF PROCEDURE The patient was placed in optimal position and preoxygenated with 100% FiO2 via bag valve mask. At the start oxygen saturation was 90 %. The patient was administered 20 mg etomidate IV and 50 mg rocuronium IV. I entered the oropharynx with a size 4 GVL glidescope blade and obtained a grade 2 view of the airway. On single attempt a size 8.0 cuffed endotracheal tube was passed through the vocal cords. Correct tube location was confirmed with end tidal CO2 detector and by auscultating over bilateral lung escalona. The endotracheal tube was secured with adhesive tape at a depth of 23 cm at the lips. The patient was connected to the ventilator. The patient tolerated the procedure well without any apparent complications. Oxygen saturations were maintained greater than 95% all times. STAT chest x-ray pending at time of dictation. Soren Reyes MD Jun 07, 2017 12:00
--- NOTE | 2017-06-07 12:01 | PD.PROCEDR ---
Procedure Note Procedure DATE: [] Fiberoptic bronchoscopy: Diagnostic and therapeutic INDICATION: Acute hypoxemia/left lower lobe mucus plugging CONSENT Informed consent for procedure was not obtaining considered emergent due to hypoxemia/respiratory failure DESCRIPTION OF THE PROCEDURE The patient was placed in supine position.. On assist control ventilation rate 16 tidal volume 500 PEEP of 12 with FiO2 100%. Sedated with propofol drip at 5 mcg/kg/min and fentanyl drip at 50 mcg an hour. Received rocuronium 50 mg IV 1. I placed the flexible bronchoscope via the 8.0 ET tube. The montserrat was sharp. Left main bronchus normal mucosa. No abnormal lesions. Left lower lobe showed copious amounts of thick white mucous plugs. No contrast was obtained with 30 cc sterile saline. I proceeded to clear the lingula upper lobe /left lower lobe with copious amounts of sterile saline. The scope was withdrawn and the right upper, middle and lower lobes were evaluated. He showed erythema but no mass. No signs of bleeding. The scope was withdrawn and the procedure was completed ESTIMATED BLOOD LOSS: Minimal COMPLICATIONS: No apparent complications. STAT chest x-ray pending at time of dictation Soren Reyes MD Jun 07, 2017 12:00
--- NOTE | 2017-06-07 12:53 | RADRPT ---
EXAM DATE/TIME: 06/07/2017 12:24 [facility] COMPARISON: CHEST SINGLE AP, June 07, 2017, 10:46. INDICATIONS : Central line placement. MEDICAL HISTORY : Hypertension. Atrial fibrillation, angina, CVA ,gerd, hiatal hernia SURGICAL HISTORY : Appendectomy. Hysterectomy. stretched esophagus, hernia repair, peg tube ENCOUNTER: Initial ACUITY: 1 week PAIN SCORE: Non-responsive. LOCATION: Bilateral chest FINDINGS: Patient remains intubated. The consolidative changes in the left lower lobe with air bronchogram pre sent. Mucous plug would be consideration. The right lung is clear. The heart is enlarged, plain vascularity is normal Central line in good position without pneumothorax. CONCLUSION: Line in good position. Consolidative changes left base.. Celestine Ritter MD FACR on June 07, 2017 at 12:51 Board Certified Radiologist. This report was verified electronically.
[2017-06-07] MEDS ORDERED: DIATRIZOATE MEGLUM/DIATRIZOATE SOD 120 ML BTL (for RAD DIAG) PEG ONE (13:47)
--- NOTE | 2017-06-07 13:52 | RADRPT ---
EXAM DATE/TIME: 06/07/2017 12:57 [facility] COMPARISON: ABDOMEN SINGLE VIEW, September 19, 2016, 22:54. INDICATIONS : Confirm NG tube placement. MEDICAL HISTORY : Hypertension. Atrial fibrillation, angina, CVA ,gerd, hiatal hernia SURGICAL HISTORY : Appendectomy. Hysterectomy. stretched esophagus, hernia repair, peg tube ENCOUNTER: Initial ACUITY: 1 day PAIN SCORE: Non-responsive. LOCATION: Bilateral abdomen. FINDINGS: No dilated loops of bowel are present. There is contrast seen within the portal venous gastrostomy tu be and within the stomach. Aortic calcification is noted. CONCLUSION: Contrast is noted within the stomach. Kristopher Poole MD on June 07, 2017 at 13:51 Board Certified Radiologist. This report was verified electronically.
[2017-06-07] MEDS: fentaNYL DRIP 250 ML IV PRN (14:00)
[2017-06-07] MEDS: guaiFENesin SOLUTION 200 MG/10 ML CUP PEG SCH ×2 (14:00→20:12)
[2017-06-07] MEDS ORDERED: ASP: Documented ESBL, MDR A baumannii or P. aeruginosa PRN (14:45)
[2017-06-07] MEDS ORDERED: MISCELLANEOUS PHARMACY INFORMATION XX PRN ×2 (14:45)
--- NOTE | 2017-06-07 14:47 | HHI.IDPN ---
Note Infectious Disease Note She was transferred to [facility] because of respiratory distress. She is now intubated on the ventilator. She is a 90% FiO2. Noted to have thick mucous plug in the right lower lobe. Patient is awake and pushes out her tongue underside of the endotracheal tube when I talked to her. She was doing the same thing Prior to intubation. Son Luis Fernando is at the bedside. Repeat urine culture has less than 25,000 colonies of gram-negative tanner. The Frederick catheter has clear urine. 86-year-old white female who was brought to the emergency department from a retirement facility. The patient apparently had respiratory symptoms with coughing. She has been on IV antibiotics for possible pneumonia. She also is noted to have a decubitus sacral ulceration. She has an indwelling Frederick catheter. The patient is severely demented. PAST MEDICAL HISTORY 1. Urinary tract infection 2. Hypothyroidism, 3. Dementia, 4. Bipolar disorder, 5. Schizophrenia 6. PEG placement 7. Total abdominal hysterectomy. ALLERGIES SULFA ASPIRIN CELECOXIB HALOPERIDOL RESPERIDONE CHLORPROMAZINE. ANTIBIOTICS: Ertapenem. Current Medications Medications (Trade) Dose Ordered Sig/Db Route PRN Reason Start Time Stop Time Status Last Admin Dose Admin Ascorbic Acid (Vitamin C) 500 mg BID PEG 06/01/17 09:00 06/06/17 21:41 Clopidogrel Bisulfate (Plavix) 75 mg DAILY PEG 06/01/17 09:00 06/06/17 09:10 Lactic Acid (Lac-Hydrin 12% Lotion) 1 applic BID TOPICAL 06/01/17 09:00 06/06/17 21:00 Lansoprazole (Prevacid Odt) 30 mg DAILY PEG 06/01/17 09:00 06/06/17 09:12 Levothyroxine Sodium (Synthroid) 100 mcg DAILY@0600 PEG 06/01/17 06:00 06/06/17 05:28 Magnesium Hydroxide (Milk Of Magnesia Liq) 30 ml HS PRN PEG IF NO BM IN 3 DAYS 06/01/17 06:00 Metoprolol Tartrate (Lopressor) 50 mg BID PEG 06/01/17 09:00 06/06/17 21:41 Mirtazapine (Remeron) 15 mg HS PEG 06/01/17 21:00 06/06/17 21:41 Pravastatin Sodium (Pravachol) 10 mg HS PEG 06/01/17 21:00 06/06/17 21:41 Spironolactone (Aldactone) 25 mg DAILY PEG 06/01/17 09:00 06/06/17 09:11 Multivitamins/ Minerals Therapeutic (Theragran M Tab) 1 tab DAILY PEG 06/01/17 09:00 06/06/17 09:09 Sodium Chloride (NS Flush) 2 ml UNSCH PRN IV FLUSH FLUSH AFTER USING IV ACCESS 06/01/17 06:00 Sodium Chloride (NS Flush) 2 ml BID IV FLUSH 06/01/17 09:00 06/06/17 21:41 Acetaminophen (Tylenol 650 Mg/ 20 ml Liq) 650 mg Q4H PRN PEG TEMP > 100.4 06/01/17 06:30 Enoxaparin Sodium (Lovenox Inj) 30 mg Q24H SQ 06/01/17 06:00 06/07/17 06:26 Naloxone HCl (Narcan Inj) 0.4 mg UNSCH PRN IV PUSH SEE LABEL COMMENTS 06/01/17 06:00 Senna/Docusate Sodium (Peggy-Colace) 1 tab BID PO 06/01/17 09:00 06/06/17 21:41 Magnesium Hydroxide (Milk Of Magnesia Liq) 30 ml Q12H PRN PO Mild constipation 06/01/17 06:00 Sennosides (Senokot) 17.2 mg Q12H PRN PO Moderate constipation 06/01/17 06:00 Bisacodyl (Dulcolax Supp) 10 mg DAILY PRN RECTAL SEVERE CONSITIPATION 06/01/17 06:00 Lactulose (Lactulose Liq) 30 ml DAILY PRN PO SEVERE CONSITIPATION 06/01/17 06:00 Divalproex Sodium (Depakote Sprinkles) 250 mg BID G-TUBE 06/01/17 21:00 06/06/17 21:40 Ertapenem 1000 mg/ Sodium Chloride 100 ml @ 200 mls/hr Q24H IV 06/02/17 21:00 06/06/17 21:40 Fluconazole (Diflucan) 100 mg DAILY PO 06/03/17 16:30 06/06/17 09:11 Nystatin (Mycostatin Liq) 5 ml QID SWISH-SWAL 06/03/17 18:00 06/06/17 21:41 Lisinopril (Prinivil) 5 mg DAILY PO 06/05/17 09:00 06/06/17 09:09 Dextrose (D50w (Vial) Inj) 50 ml UNSCH PRN IV PUSH HYPOGLYCEMIA - SEE COMMENTS 06/07/17 04:00 Glucagon (Glucagon Inj) 1 mg UNSCH PRN OTHER HYPOGLYCEMIA-SEE COMMENTS 06/07/17 04:00 Dextrose/Sodium Chloride 1,000 ml @ 75 mls/hr [id number] IV 06/07/17 05:00 06/07/17 04:35 Chlorhexidine Gluconate (Peridex 0.12% Liq) 15 ml BID@08,20 MT 06/07/17 20:00 Propofol 100 ml @ 1.89 mls/hr TITRATE PRN IV SEDATION 06/07/17 11:00 Fentanyl Citrate 250 ml @ 5 mls/hr TITRATE PRN IV SEDATION 06/07/17 11:15 Albuterol/ Ipratropium (Duoneb Neb) 1 ampule Q6HR NEB NEB 06/07/17 16:00 Albuterol Sulfate (Albuterol Neb) 2.5 mg Q2HR NEB PRN NEB dyspnea 06/07/17 11:15 Sodium Chloride (NS Flush) DAILY IV FLUSH 06/08/17 09:00 Sodium Chloride (NS Flush) UNSCH PRN IV FLUSH SEE PROTOCOL 06/07/17 12:00 Guaifenesin (Robitussin Liq) 400 mg Q8HR PEG 06/07/17 14:00 Sodium Chloride (Sodium Chloride 3% Neb) 2 ml Q6HR NEB NEB 06/07/17 16:00 06/14/17 15:59 OBJECTIVE: Vital Signs Date Time Temp Pulse Resp B/P (MAP) Pulse Ox O2 Delivery O2 Flow Rate FiO2 06/07/17 13:40 97 90 06/07/17 12:00 97 100 06/07/17 11:20 100 100 06/07/17 10:58 97 100 06/07/17 09:03 92 Non-Rebreather 15.00 06/07/17 08:36 90 Simple Mask 10.00 06/07/17 08:03 96 Room Air 06/07/17 08:00 97.5 68 19 120/60 (80) 89 06/07/17 04:03 60 06/07/17 02:21 100 Room Air 06/07/17 01:35 176 06/07/17 00:00 58 06/07/17 00:00 97.4 85 18 137/84 (101) 98 06/06/17 23:10 88 Room Air 06/06/17 20:17 98.0 79 16 118/85 (96) 90 06/06/17 20:00 67 06/06/17 17:58 61 06/06/17 16:00 98.6 66 16 115/55 (75) 90 Laboratory Tests Test 06/06/17 12:15 06/07/17 07:42 White Blood Count 10.3 TH/MM3 14.2 TH/MM3 Red Blood Count 3.78 MIL/MM3 4.04 MIL/MM3 Hemoglobin 11.1 GM/DL 11.6 GM/DL Hematocrit 33.5 % 36.1 % Mean Corpuscular Volume 88.5 FL 89.5 FL Mean Corpuscular Hemoglobin 29.4 PG 28.8 PG Mean Corpuscular Hemoglobin Concent 33.3 % 32.2 % Red Cell Distribution Width 17.8 % 17.9 % Platelet Count 371 TH/MM3 417 TH/MM3 Mean Platelet Volume 7.8 FL 7.8 FL Neutrophils (%) (Auto) 66.9 % 72.2 % Lymphocytes (%) (Auto) 19.5 % 17.5 % Monocytes (%) (Auto) 9.3 % 7.9 % Eosinophils (%) (Auto) 3.4 % 1.9 % Basophils (%) (Auto) 0.9 % 0.5 % Neutrophils # (Auto) 6.9 TH/MM3 10.2 TH/MM3 Lymphocytes # (Auto) 2.0 TH/MM3 2.5 TH/MM3 Monocytes # (Auto) 1.0 TH/MM3 1.1 TH/MM3 Eosinophils # (Auto) 0.4 TH/MM3 0.3 TH/MM3 Basophils # (Auto) 0.1 TH/MM3 0.1 TH/MM3 CBC Comment DIFF FINAL DIFF FINAL Differential Comment Laboratory Tests Test 06/06/17 12:15 06/07/17 04:55 06/07/17 07:42 Blood Urea Nitrogen 10 MG/DL 8 MG/DL Creatinine 0.41 MG/DL 0.54 MG/DL Random Glucose 80 MG/DL 80 MG/DL 93 MG/DL Calcium Level 8.9 MG/DL 9.4 MG/DL Sodium Level 140 MEQ/L 141 MEQ/L Potassium Level 4.4 MEQ/L 5.1 MEQ/L Chloride Level 106 MEQ/L 106 MEQ/L Carbon Dioxide Level 29.2 MEQ/L 29.6 MEQ/L Anion Gap 5 MEQ/L 5 MEQ/L Estimat Glomerular Filtration Rate 148 ML/MIN 108 ML/MIN Microbiology Date/Time Source Procedure Growth Status 06/07/17 11:30 Bronchial Washings Left Lower Lobe Fungal Smear Pending Received 06/07/17 11:30 Bronchial Washings Left Lower Lobe Fungal Culture Pending Received 06/07/17 11:30 Bronchial Washings Left Lower Lobe Acid Fast Stain Pending Received 06/07/17 11:30 Bronchial Washings Left Lower Lobe Mycobacterial Culture Pending Received 06/07/17 11:30 Bronchial Washings Left Lower Lobe Gram Stain - Final Resulted 06/07/17 11:30 Bronchial Washings Left Lower Lobe Bronchial Culture Pending Resulted 06/05/17 19:44 Urine Catheterized Urine Urine Culture - Preliminary Gram Negative Tanner Resulted PHYSICAL EXAMINATION GENERAL: Awake. On the ventilator. HEENT: Head is atraumatic. Extraocular movements are grossly intact, pupils reactive to light. No icterus. Oropharynx moist mucosa. NECK: Supple. LUNGS: Decreased breath sounds HEART: Regular S1 and S2. No audible murmur. ABDOMEN: Bowel sounds present, soft. No tenderness appreciated. EXTREMITIES: No clubbing or cyanosis, no edema. Contractures of the lower extremities. NEUROLOGIC: Difficult to assess. PSYCHIATRIC: Difficult to assess. IMPRESSION 1. Acute respiratory failure. Right lower lobe infiltrate from mucous plugging. 2. Urinary tract infection due to ESBL E-coli. Urine culture gram-negative tanner. Decreased colony count. 3. Severe dementia. RECOMMENDATIONS 1. Changed to ertapenem to meropenem for pulmonary coverage and follow sputum culture. 2. Follow the repeat urine culture. 3. Monitor clinical status. 4. Diflucan for thrush. 5. Monitor the brown culture. Stevenson Mcneill MD Jun 07, 2017 14:47
[2017-06-07] MEDS ORDERED: MUPIROCIN 2% OINT 22 GM TUBE TOPICAL ONE (15:00)
[2017-06-07 15:49] LABS: AUTOMATED NEUTROPHIL # 18.3 TH/MM3 (1.8-7.7); BASOPHIL # 0.2 TH/MM3 (0-0.2); BASOPHIL % 0.8 % (0.0-2.0); EOSINOPHIL # 0.1 TH/MM3 (0-0.4); EOSINOPHIL % 0.5 % (0.0-4.0); HEMATOCRIT 35.2 % (35.0-46.0); HEMOGLOBIN 11.4 GM/DL (11.6-15.3); LYMPH % 5.8 % (9.0-44.0); LYMPHOCYTE # 1.2 TH/MM3 (1.0-4.8); MEAN CELL VOLUME 88.5 FL (80.0-100.0); MEAN CORPUSCULAR HEMOGLOBIN 28.5 PG (27.0-34.0); MEAN CORPUSCULAR HGB CONC 32.3 % (32.0-36.0); MEAN PLATELET VOLUME 7.9 FL (7.0-11.0); MONO % 6.1 % (0.0-8.0); MONOCYTE # 1.3 TH/MM3 (0-0.9); NEUT % 86.8 % (16.0-70.0); PLATELET COUNT 396 TH/MM3 (150-450); RED BLOOD COUNT 3.98 MIL/MM3 (4.00-5.30)
[2017-06-07] MEDS: RESP: SODIUM CHLORIDE 3% 4 ML NEB NEB SCH ×2 (16:00→20:55)
[2017-06-07] MEDS: RESP: ALBUTEROL 2.5 MG/IPRATROPIUM 0.5 MG NEB (SCH) NEB ×2 (16:10→20:55)
--- NOTE | 2017-06-07 16:11 | PD.CONS ---
Consult Service Palliative Care Consult Requested By Dr Smith Primary Care Physician Unknown Reason for Consultation a. To assist with evaluation and management of symptoms including: Dyspnea, agitation b. To assist medical decision maker(s) with: better understanding of current medical conditions; weighing benefits/burdens of medical treatment options; making medical treatment decisions. HPI History of Present Illness This 86-year-old patient was admitted through the ED on 06/01/17. Her nursing facility the [facility] to the ED for cough, respiratory distress. She was apparently on a course of oral antibiotics for possible pneumonia, also noted to have stage IV sacral decubitus, and chronic indwelling Frederick catheter. Patient with advanced dementia, contractures , bedbound. PT son arrived to the ER and provided additional history reporting a cough and recent UTIs. He reported her mental status was at baseline, dementia and nonverbal. *Of note this patient is known to palliative from prior consultation April 2016-at that time patient son elected to continue aggressive measures and hoping to help the patient improved, stronger, though he did discuss the possibility of hospice if she experienced decline. She was noted to be DNR at that time, not clear when DNR status changed. It is noted to have a few hospitalizations following that course does not appear that she has been on hospice services.* * ED: started on Levaquin. WBC 10.7. CXR negative for acute process. Admitted for further evaluation and management. * ID consulted: Patient with known history of ESBL Escherichia coli UTI. Preliminary cultures gram negative rods. Started on cefepime. Follow cultures. * + ESBL, ID following patient on ertapenem. Wound care following for large sacral wound, chronic. * 3/1 patient increasingly confused pulled out her PEG tube. * 3/2 patient with acute respiratory status deterioration, hypoxic, hypercapnic. CXR with left lower lobe infiltrate versus mucous plug. Emergency response team was called. Patient was transferred to ICU. Upon critical care arrival patient tachypneic O2 sats in the 80s. She was emergently intubated by critical care. G-tube replaced by GI physician at bedside. Palliative care consulted to assist with clarification of goals of treatment. Patient seen in room capo Gould present at bedside. She is awake and moving head side to side at times. She is moving arms at times. She is sticking out her tongue and biting the ET tube. She does not follow any commands. Met with capo Gould at bedside. . Function/Cognitive Trajectory Bedbound, minimally verbal, a few words a day. Son reports she recognizes him. prison resident of the [facility]. frequent hospitalizations 2017. Last walking March 2016/April 2016. . Review of Systems Respiratory: COMPLAINS OF: Cough (per son) Past Family Social History Coded Allergies: Sulfa (Sulfonamide Antibiotics) (Unverified Allergy, Unknown, 06/01/17) celecoxib (Unverified Allergy, Unknown, 06/01/17) haloperidol (Unverified Allergy, Unknown, 06/01/17) risperidone (Unverified Allergy, Unknown, 06/01/17) aspirin (Unverified Adverse Reaction, Intermediate, NOSE BLEEDS, 06/01/17) chlorpromazine (Unverified Adverse Reaction, Intermediate, CRAMPS, 06/01/17 ) *MDRO Multi-Drug Resistant Organism (Verified Adverse Reaction, Unknown, ESBL, 06/01/17) ESBL (urine) 09/05/16, 10/17/16 Past Medical History Heart of hearing Osteoarthritis Atrial fibrillation Bipolar Angina CVA Chronic Frederick catheter Hiatal hernia Esophageal dilatation Hypertension Contractures Hypothyroid . Past Surgical History Hernia repair/Serafin fundoplication EGD with esophageal dilation PEG tube placement, replacement Appendectomy Thyroid surgery 1952 Cataract surgery Hysterectomy . Reported Medications Aldactone (Spironolactone) 25 Mg Tab 25 Mg PEG DAILY Pravastatin 10 Mg Tab 10 Mg PEG HS Thera/Beta-Carotene (Multiple Vitamin) 1 Tab Tab 1 Tab PEG DAILY Mirtazapine 15 Mg Tab 15 Mg PEG HS Lopressor (Metoprolol Tartrate) 50 Mg Tab 50 Mg PEG BID Synthroid (Levothyroxine Sodium) 100 Mcg Tab 100 Mcg PEG DAILY@0600 Prevacid Solutab ODT (Lansoprazole) 30 Mg Tab 30 Mg PEG DAILY Plavix (Clopidogrel Bisulfate) 75 Mg Tab 75 Mg PEG DAILY Milk of Magnesia Liq (Magnesium Hydroxide) 400 Mg/5 Ml Susp 30 Ml PEG HS PRN Tylenol (Acetaminophen) 325 Mg Tab 650 Mg PEG Q4H PRN Depakote DR (Divalproex Sodium) 250 Mg Tabdr 250 Mg PEG BID Ascorbic Acid 500 Mg Tab 500 Mg PEG BID Ammonium Lactate (Lactic Acid (Ammonium Lactate)) 12% Lotn 1 Applic TOPICAL BID Apply to whole body every day and evening shift Dulcolax Supp (Bisacodyl) 10 Mg Supp 10 Mg RECTAL DAILY PRN Albuterol Neb (Albuterol Sulfate) 0.63 Mg/3 Ml Neb 0.63 Mg NEB Q6HR NEB PRN . Current Medications Medications (Trade) Dose Ordered Sig/Db Route Start Time Stop Time Status Last Admin (Vitamin C) 500 mg BID PEG 06/01/17 09:00 06/06/17 21:41 (Plavix) 75 mg DAILY PEG 06/01/17 09:00 06/06/17 09:10 (Lac-Hydrin 12% Lotion) 1 applic BID TOPICAL 06/01/17 09:00 06/06/17 21:00 (Prevacid Odt) 30 mg DAILY PEG 06/01/17 09:00 06/06/17 09:12 (Synthroid) 100 mcg DAILY@0600 PEG 06/01/17 06:00 06/06/17 05:28 (Milk Of Magnesia Liq) 30 ml HS PRN PEG 06/01/17 06:00 (Lopressor) 50 mg BID PEG 06/01/17 09:00 06/06/17 21:41 (Remeron) 15 mg HS PEG 06/01/17 21:00 06/06/17 21:41 (Pravachol) 10 mg HS PEG 06/01/17 21:00 06/06/17 21:41 (Aldactone) 25 mg DAILY PEG 06/01/17 09:00 06/06/17 09:11 (Theragran M Tab) 1 tab DAILY PEG 06/01/17 09:00 06/06/17 09:09 (NS Flush) 2 ml UNSCH PRN IV FLUSH 06/01/17 06:00 (NS Flush) 2 ml BID IV FLUSH 06/01/17 09:00 06/06/17 21:41 (Tylenol 650 Mg/ 20 ml Liq) 650 mg Q4H PRN PEG 06/01/17 06:30 (Lovenox Inj) 30 mg Q24H SQ 06/01/17 06:00 06/07/17 06:26 (Narcan Inj) 0.4 mg UNSCH PRN IV PUSH 06/01/17 06:00 (Peggy-Colace) 1 tab BID PO 06/01/17 09:00 06/06/17 21:41 (Milk Of Magnesia Liq) 30 ml Q12H PRN PO 06/01/17 06:00 (Senokot) 17.2 mg Q12H PRN PO 06/01/17 06:00 (Dulcolax Supp) 10 mg DAILY PRN RECTAL 06/01/17 06:00 (Lactulose Liq) 30 ml DAILY PRN PO 06/01/17 06:00 (Depakote Sprinkles) 250 mg BID G-TUBE 06/01/17 21:00 06/06/17 21:40 (Diflucan) 100 mg DAILY PO 06/03/17 16:30 06/06/17 09:11 (Mycostatin Liq) 5 ml QID SWISH-SWAL 06/03/17 18:00 06/06/17 21:41 (Prinivil) 5 mg DAILY PO 06/05/17 09:00 06/06/17 09:09 (D50w (Vial) Inj) 50 ml UNSCH PRN IV PUSH 06/07/17 04:00 (Glucagon Inj) 1 mg UNSCH PRN OTHER 06/07/17 04:00 Dextrose/Sodium Chloride 1,000 ml @ 75 mls/hr [id number] IV 06/07/17 05:00 06/07/17 04:35 (Peridex 0.12% Liq) 15 ml BID@08,20 MT 06/07/17 20:00 Propofol 100 ml @ 1.89 mls/hr TITRATE PRN IV 06/07/17 11:00 Fentanyl Citrate 250 ml @ 5 mls/hr TITRATE PRN IV 06/07/17 11:15 (Duoneb Neb) 1 ampule Q6HR NEB NEB 06/07/17 16:00 (Albuterol Neb) 2.5 mg Q2HR NEB PRN NEB 06/07/17 11:15 (NS Flush) DAILY IV FLUSH 06/08/17 09:00 (NS Flush) UNSCH PRN IV FLUSH 06/07/17 12:00 (Robitussin Liq) 400 mg Q8HR PEG 06/07/17 14:00 (Sodium Chloride 3% Neb) 2 ml Q6HR NEB NEB 06/07/17 16:00 06/14/17 15:59 (ASP Crit: Doc ESBL, MDR A baumannii or P aer) 1 UNSCH X1 PRN .XX 06/07/17 14:45 06/08/17 14:44 ([facility] Information) 1 UNSCH X1 PRN XX 06/07/17 14:45 06/08/17 14:44 Meropenem 1000 mg/ Sodium Chloride 100 ml @ 200 mls/hr Q8H IV 06/07/17 15:00 ([facility] Information) 1 UNSCH X1 PRN XX 06/07/17 14:45 06/08/17 14:44 Family History Family history of heart disease per EMR Substance Use Tobacco: Nonsmoker. Alcohol: In the past occasional alcohol use Prescription med abuse: None Illicits: None . Psychosocial History . Has 6 children-- 1 son , 1 son mentally handicapped and lives in a long term/dependent. has a son in [place], and sons in 4 other states. Completed some college education. Lives locally in the [facility]. Spiritual/Cultural Factors Yazdanism-son declined metal burrer visits at this time Living Will: Completed, but not made available Health Care Surrogate: Completed, but not made available Durable Power of Slack Cooper: Completed, but not made available Ethical and Legal Issues Electronic record notes living will HCS/ DPOA however I do not have copies of these documents at this time. Patient unable to participate due to advanced dementia. Local son Luis Fernando has been serving as primary proxy, however today upon further discussion with him apparently patient has 6 children total; one son is , one son is mentally handicapped and dependent for care however she does have 4 other sons--Luis Fernando is local, and the other 3 live in 3 other states. Per [place] statutes legal decision making would actually fall to the majority of all the adult children who wished to be involved, so we should attempt to involve and contact them to determine if they wish to participate. Son Tells me that he has always served as decision maker because he is local, though not clear that this is documented in any type of HCS etc. Physical Exam Vital Signs Date Time Temp Pulse Resp B/P (MAP) Pulse Ox O2 Delivery O2 Flow Rate FiO2 06/07/17 14:00 70 06/07/17 13:40 97 90 06/07/17 12:00 97 100 06/07/17 11:20 100 100 06/07/17 10:58 97 100 06/07/17 09:03 92 Non-Rebreather 15.00 06/07/17 08:36 90 Simple Mask 10.00 06/07/17 08:03 96 Room Air 06/07/17 08:00 97.5 68 19 120/60 (80) 89 06/07/17 04:03 60 06/07/17 02:21 100 Room Air 06/07/17 01:35 176 06/07/17 00:00 58 06/07/17 00:00 97.4 85 18 137/84 (101) 98 06/06/17 23:10 88 Room Air 06/06/17 20:17 98.0 79 16 118/85 (96) 90 06/06/17 20:00 67 06/06/17 17:58 61 06/06/17 16:00 98.6 66 16 115/55 (75) 90 Exam CONSTITUTIONAL/GENERAL: This is a thin, frail elderly female, restless on mechanical vent TUBES/LINES/DRAINS: IJ central line, peripheral IV upper extremity, soft restraints, ET tube, OG tube, PEG tube. Frederick catheter. SKIN: No jaundice, rashes, or lesions. Reported sacral wound not visualized. Small pressure ulcerations visible to lateral and medial surfaces of feet. HEAD: Atraumatic. Normocephalic. EYES: Pupils equal and round and reactive. Extraocular motions intact. No scleral icterus. No injection or drainage. Fundi not examined. ENT: Nose without bleeding or purulent drainage. ET tube, OG tube unable to visualize oropharynx. NECK: Trachea midline. Supple, nontender. CARDIOVASCULAR: Regular rate and rhythm no murmur. No JVD. Peripheral pulses faint. RESPIRATORY/CHEST: Symmetric, unlabored respirations. Clear to auscultation. Breath sounds equal bilaterally. No wheezes, rales, or rhonchi. GASTROINTESTINAL: Abdomen soft, flat, non-tender, nondistended. No palpable masses. + G-tube clamped no symptoms of problem. Bowel sounds present. GENITOURINARY: Without palpable bladder distension. Frederick catheter in place. MUSCULOSKELETAL: Extremities without clubbing, cyanosis, or edema. Lower extremities drawn up, contracted. NEUROLOGICAL: Awake and alert. On mechanical vent. Moving upper extremities well, lower extremities minimally move. She is sticking out tongue biting ET tube. She does not follow commands. Eyes are open appears to track. PSYCHIATRIC: Restless at times. Diagnostic Tests Laboratory Laboratory Tests Test 06/05/17 08:39 06/06/17 12:15 06/07/17 04:55 06/07/17 07:42 White Blood Count 9.6 TH/MM3 (4.0-11.0) 10.3 TH/MM3 (4.0-11.0) 14.2 TH/MM3 (4.0-11.0) Red Blood Count 3.79 MIL/MM3 (4.00-5.30) 3.78 MIL/MM3 (4.00-5.30) 4.04 MIL/MM3 (4.00-5.30) Hemoglobin 11.1 GM/DL (11.6-15.3) 11.1 GM/DL (11.6-15.3) 11.6 GM/DL (11.6-15.3) Hematocrit 33.6 % (35.0-46.0) 33.5 % (35.0-46.0) 36.1 % (35.0-46.0) Mean Corpuscular Volume 88.5 FL (80.0-100.0) 88.5 FL (80.0-100.0) 89.5 FL (80.0-100.0) Mean Corpuscular Hemoglobin 29.1 PG (27.0-34.0) 29.4 PG (27.0-34.0) 28.8 PG (27.0-34.0) Mean Corpuscular Hemoglobin Concent 32.9 % (32.0-36.0) 33.3 % (32.0-36.0) 32.2 % (32.0-36.0) Red Cell Distribution Width 17.7 % (11.6-17.2) 17.8 % (11.6-17.2) 17.9 % (11.6-17.2) Platelet Count 370 TH/MM3 (150-450) 371 TH/MM3 (150-450) 417 TH/MM3 (150-450) Mean Platelet Volume 7.8 FL (7.0-11.0) 7.8 FL (7.0-11.0) 7.8 FL (7.0-11.0) Neutrophils (%) (Auto) 60.6 % (16.0-70.0) 66.9 % (16.0-70.0) 72.2 % (16.0-70.0) Lymphocytes (%) (Auto) 24.1 % (9.0-44.0) 19.5 % (9.0-44.0) 17.5 % (9.0-44.0) Monocytes (%) (Auto) 10.8 % (0.0-8.0) 9.3 % (0.0-8.0) 7.9 % (0.0-8.0) Eosinophils (%) (Auto) 3.7 % (0.0-4.0) 3.4 % (0.0-4.0) 1.9 % (0.0-4.0) Basophils (%) (Auto) 0.8 % (0.0-2.0) 0.9 % (0.0-2.0) 0.5 % (0.0-2.0) Neutrophils # (Auto) 5.8 TH/MM3 (1.8-7.7) 6.9 TH/MM3 (1.8-7.7) 10.2 TH/MM3 (1.8-7.7) Lymphocytes # (Auto) 2.3 TH/MM3 (1.0-4.8) 2.0 TH/MM3 (1.0-4.8) 2.5 TH/MM3 (1.0-4.8) Monocytes # (Auto) 1.0 TH/MM3 (0-0.9) 1.0 TH/MM3 (0-0.9) 1.1 TH/MM3 (0-0.9) Eosinophils # (Auto) 0.4 TH/MM3 (0-0.4) 0.4 TH/MM3 (0-0.4) 0.3 TH/MM3 (0-0.4) Basophils # (Auto) 0.1 TH/MM3 (0-0.2) 0.1 TH/MM3 (0-0.2) 0.1 TH/MM3 (0-0.2) CBC Comment AUTO DIFF DIFF FINAL DIFF FINAL Differential Total Cells Counted 100 Neutrophils % (Manual) 58 % (16-70) Band Neutrophils % 2 % (0-6) Lymphocytes % 26 % (9-44) Monocytes % 11 % (0-8) Eosinophils % 1 % (0-4) Neutrophils # (Manual) 6.0 TH/MM3 (1.8-7.7) Metamyelocytes 1 % (0-1) Myelocytes 1 % (0-0) Differential Comment FINAL DIFF MANUAL Toxic Granulation 1+ (NORMAL) Platelet Estimate NORMAL (NORMAL) Platelet Morphology Comment NORMAL (NORMAL) Blood Urea Nitrogen 9 MG/DL (7-18) 10 MG/DL (7-18) 8 MG/DL (7-18) Creatinine 0.49 MG/DL (0.50-1.00) 0.41 MG/DL (0.50-1.00) 0.54 MG/DL (0.50-1.00) Random Glucose 73 MG/DL (74-106) 80 MG/DL (74-106) 80 MG/DL (74-106) 93 MG/DL (74-106) Calcium Level 8.8 MG/DL (8.5-10.1) 8.9 MG/DL (8.5-10.1) 9.4 MG/DL (8.5-10.1) Sodium Level 140 MEQ/L (136-145) 140 MEQ/L (136-145) 141 MEQ/L (136-145) Potassium Level 4.3 MEQ/L (3.5-5.1) 4.4 MEQ/L (3.5-5.1) 5.1 MEQ/L (3.5-5.1) Chloride Level 105 MEQ/L (98-107) 106 MEQ/L (98-107) 106 MEQ/L (98-107) Carbon Dioxide Level 30.3 MEQ/L (21.0-32.0) 29.2 MEQ/L (21.0-32.0) 29.6 MEQ/L (21.0-32.0) Anion Gap 5 MEQ/L (5-15) 5 MEQ/L (5-15) 5 MEQ/L (5-15) Estimat Glomerular Filtration Rate 120 ML/MIN (>89) 148 ML/MIN (>89) 108 ML/MIN (>89) Test 06/07/17 08:40 06/07/17 11:30 06/07/17 12:48 06/07/17 15:00 Blood Gas Puncture Site RT RADIAL RT RADIAL Blood Gas Patient Temperature 98.6 98.6 Blood Gas HCO3 28 mmol/L (22-26) 26 mmol/L (22-26) Blood Gas Base Excess 3.8 mmol/L (-2-2) 2.2 mmol/L (-2-2) Blood Gas Oxygen Saturation 81 % (90-100) 96 % (90-100) Arterial Blood pH 7.45 (7.380-7.420) 7.47 (7.380-7.420) Arterial Blood Partial Pressure CO2 40 mmHg (38-42) 36 mmHg (38-42) Arterial Blood Partial Pressure O2 47 mmHg (61-120) 116 mmHg (61-120) Arterial Blood Oxygen Content 12.7 Vol % (12.0-20.0) 16.6 Vol % (12.0-20.0) Arterial Blood Carboxyhemoglobin 1.4 % (0-4) 0.8 % (0-4) Arterial Blood Methemoglobin 0.5 % (0-2) 1.0 % (0-2) Blood Gas Hemoglobin 11.1 G/DL (12.0-16.0) 12.1 G/DL (12.0-16.0) Oxygen Delivery Device MASK Blood Gas Liter Flow 8 L/M Bronchoalveolar Lavage WBC 2480 /MM3 Bronchoalveolar Lavage RBC 0 /MM3 Bronchoalveolar Lavage Neutrophils 92 % Bronchoalveolar Lavage Lymphocytes 5 % Bronchoalveolar Lavage Eosinophils 3 % Bronchoalveolar Lavage Diff Comment Lavage Fluid Total Volume 16.0 ML Lavage Fluid Total WBC Count 4.000 MILLION (4.700-7.100) Blood Gas Inspired Oxygen 100 % Test 06/07/17 15:04 Result Diagram: 06/07/17 0742 06/07/17 0742 Microbiology Microbiology Date/Time Source Procedure Growth Status 06/07/17 11:30 Bronchial Washings Left Lower Lobe Fungal Smear Pending Received 06/07/17 11:30 Bronchial Washings Left Lower Lobe Fungal Culture Pending Received 06/07/17 11:30 Bronchial Washings Left Lower Lobe Acid Fast Stain Pending Received 06/07/17 11:30 Bronchial Washings Left Lower Lobe Mycobacterial Culture Pending Received 06/07/17 11:30 Bronchial Washings Left Lower Lobe Gram Stain - Final Resulted 06/07/17 11:30 Bronchial Washings Left Lower Lobe Bronchial Culture Pending Resulted 06/05/17 19:44 Urine Catheterized Urine Urine Culture - Preliminary Gram Negative Tanner Resulted Imaging Last Impressions Chest X-Ray 06/07/17 1157 Signed Impressions: Service Date/Time: Wednesday, June 07, 2017 12:24 - CONCLUSION: Line in good position. Consolidative changes left base.. Celestine Ritter MD FACR Abdomen X-Ray 06/07/17 0000 Signed Impressions: Service Date/Time: Wednesday, June 07, 2017 12:57 - CONCLUSION: Contrast is noted within the stomach. Kristopher Poole MD Procedures =3/2 intubation, central line RT IJ = bronchoscopy Patient/Family Conference Family Conference Time (mins): 25 Family Conference Location: Bedside Issues Discussed: Was capo Gould at bedside. Discussion included the following: * Palliative care role, purpose, approach * Additional medical, psychosocial, and spiritual history * Patients general health, functional status, and cognitive changes in the months leading up to the current hospitalization * Patient/family understanding of the current medical problems * Patient/family understanding of prognosis * Patients goals of care as best understood from advance directives and/or conversations and/or values * Current medical treatment options and benefits/burdens of those options * Decision makers per [place] statutes * CODE status * Questions answered to the best of my ability * Palliative care contact information provided Capo Gould expresses very aggressive goals, he would want to continue any and all treatments possible to help the patient recover to her most recent status. He remains hopeful that at some point she'll be able to start getting out of bed again. He is not certain why she had a DNR in the past she indicates she should remain a full code. I have extensively reviewed with him patient's conditions, current hospitalizations, debilitated status, dementia progression, and high risk for decline and at any time he feels she has recovered from recurrent hospitalizations in the past and he expects she will continue to do so. He indicates patient had "been eating fine ", despite her having a PEG tube and multiple PEG tube replacements. Indicates she had been able to get up out of bed up until a few weeks ago when he is hopeful that she will be able to start getting up again if she gets stronger. He does not appear to accept or believe pt overall condition or prognosis. He asked me why the pt needed to be intubated, if the dr "really needed to do that, if they couldn't just give more oxygen". I reviewed extensively pt condition and that is possible she may recover, but high risk for decline. Will require further discussion regarding goals once hospital staff determine if the other children wish to be involved. . Assessment and Plan Disease Oriented Problem List: (1) BipolarII (2) Sacral decubitus ulcer (3) Malnutrition (4) ESBL (extended spectrum beta-lactamase) producing bacteria infection (5) HTN (hypertension) (6) Respiratory failure (7) Dislodged gastrostomy tube Symptom Scale: (1) Dyspnea 0-10 Scale: Unable to quantify (2) Pain 0-10 Scale: Unable to quantify (3) Agitation 0-10 Scale: Unable to quantify Pertinent Non-Medical Issues Psychosocial: Spiritual: capo Orantes declined metal burrer visits at this time Legal:Electronic record notes living will HCS/ DPOA however I do not have copies of these documents at this time. Patient unable to participate due to advanced dementia. Local son Luis Fernando has been serving as primary proxy, however today upon further discussion with him apparently patient has 6 children total; one son is , one son is mentally handicapped and dependent for care however she does have 4 other sons--Luis Fernando is local, and the other 3 live in 3 other states. Per [place] statutes legal decision making would actually fall to the majority of all the adult children who wished to be involved, so we should attempt to involve and contact them to determine if they wish to participate. Son Tells me that he has always served as decision maker because he is local, though not clear that this is documented in any type of HCS etc. Ethical issues impacting care: Important Contacts Luis Fernando Corona [phone] or [phone]/ son, proxy Prognosis This patient was admitted for cough, shortness of breath. She has advanced dementia, she has had recurrent hospitalizations for infections and complications. She is bedbound and contracted. She had worsening respiratory distress today requiring intubation. Possible with prolonged aggressive interventions she might recover from a current acute episode, though she is very debilitated and high risk for further complications , setbacks and . She is appropriate for hospice if goals compatible. . Code Status: Full Code Plan * Legal decision maker: Electronic record notes living will HCS/ DPOA however I do not have copies of these documents at this time. Patient unable to participate due to advanced dementia. Local capo Gould has been serving as primary proxy, however today upon further discussion with him apparently patient has 6 children total; one son is , one son is mentally handicapped and dependent for care however she does have 4 other sons--Luis Fernando is local, and the other 3 live in 3 other states. Per [place] statutes legal decision making would actually fall to the majority of all the adult children who wished to be involved, so we should attempt to involve and contact them to determine if they wish to participate. Son Tells me that he has always served as decision maker because he is local, though not clear that this is documented in any type of HCS etc. I have requested the son provide an update to his siblings, and that we wouldn't want their contact information to attempt to reach them in the coming days, palliative can follow-up Saturday. * Goals: Son Luis Fernando expresses very aggressive goals, he would want to continue any and all treatments possible to help the patient recover to her most recent status. He remains hopeful that at some point she'll be able to start getting out of bed again. He is not certain why she had a DNR in the past she indicates she should remain a full code. I have extensively reviewed with him patient's conditions and high risk for decline and at any time he feels she has recovered from recurrent hospitalizations in the past and he expects she will continue to do so. Will require further discussion regarding goals once hospital staff determine if the other children wish to be involved. * CODE STATUS: * SYMPTOMS: --Dyspnea -admitted for cough, shortness of breath. Emergently intubated 06/07 for worsening respiratory status. Currently breathing somewhat comfortably on mechanical vent though frequent cough --Pain- large sacral decubitus ulcer, chronic. Potential source of pain. Chronic bedbound status, contractures other potential sources of pain. Consider low-dose analgesic --Agitation- per review of EMR patient with history of agitation and confusion, striking at caregivers and facility, given underlying history of dementia, intubation, and acute infectious processes, at risk for agitation/ anxiety; require sedation for ventilator comfort * Palliative care will continue to follow during hospital course as condition evolves, to assist patient/decision-maker with understanding of medical conditions, weighing benefits/burdens of treatment options, for clarification of goals of treatment. Additionally will assist with any symptoms of palliative concern . Thank you for the opportunity to participate in the care of Ms. Corona. Attestation To help prompt me to consider important information that might be impacting today's encounter and assessment, information from prior notes written by myself or my colleagues may have been "brought forward" into today's note. My signature on this note, however, is an attestation that I personally performed the exam, history, and/or decision-making noted today, and, unless otherwise indicated, the interactions with patient, family, and staff as well as the review of records all occurred today. I also attest that the listed assessment and stated plan reflect my best clinical judgment today based on the combination of historical information, prior notes, and today's exam/ interactions. When time spent is documented, it refers only to time spent today by the signer, or if indicated, combined time spent today by collaborating physician/nurse practitioner. Cherise Constantino Jun 07, 2017 16:11
[2017-06-07 16:49] LABS: INTERNATIONAL NORMALIZED RATIO 1.1 RATIO; PROTHROMBIN TIME - PATIENT 11.5 SEC (9.8-11.6)
[2017-06-07 17:03] LABS: ALBUMIN 2.3 GM/DL (3.4-5.0); AST (GOT) 18 U/L (15-37); BICARBONATE 27.1 MEQ/L (21.0-32.0); BLOOD UREA NITROGEN 9 MG/DL (7-18); CALCIUM 8.8 MG/DL (8.5-10.1); CHLORIDE 107 MEQ/L (98-107); CREATININE 0.59 MG/DL (0.50-1.00); GLOMERULAR FILTRATION RATE 97 ML/MIN (>89); GLUCOSE,RANDOM 124 MG/DL (74-106); SODIUM (NA) 142 MEQ/L (136-145)
[2017-06-07 17:13] LABS: ALKALINE PHOSPHATASE 79 U/L (45-117); ALT (GPT) 9 U/L (10-53); PHOSPHORUS 2.2 MG/DL (2.5-4.9); TOTAL BILIRUBIN ADULT 0.4 MG/DL (0.2-1.0); TOTAL PROTEIN 6.5 GM/DL (6.4-8.2); TROPONIN I LESS THAN 0.02 NG/ML (0.02-0.05)
[2017-06-07] MEDS ORDERED: NOREPINEPHRINE 4 MG/D5W 250 ML IV PRN (18:15)
[2017-06-07] MEDS: CHLORHEXIDINE 0.12% (ORAL KIT) 15 ML CUP MT SCH (20:00)
[2017-06-07] MEDS: MIRTAZAPINE 15 MG TAB PEG SCH (20:12)
[2017-06-07] MEDS: PRAVASTATIN SOD 10 MG TAB PEG SCH (20:12)
[2017-06-07] MEDS ORDERED: CHLORHEXIDINE GLUCONATE 2 % 1 PACK (2 CLOTHS)(extra cloths) TOPICAL PRN (21:00)
--- NOTE | 2017-06-07 21:56 | MB ---
cc: Coleen Ariza MD, [place] 0 MD DATE OF CONSULT: HISTORY OF PRESENT ILLNESS: Ms. Corona is an 86-year-old white female with a history of severe dementia who was admitted on 06/01 and diagnosed with urinary tract infection. She also has had sacral decubitus culture. Last night, she was confused on the floor, pulled her PEG tube. She subsequently developed hypoxemia, hypercapnia and was transferred to the unit. She was intubated and underwent bronchoscopy and was placed on the ventilator. Her telemetry on the floor was read as ventricular tachycardia and, upon further review, was consistent with artifact likely related to tremor. PAST MEDICAL HISTORY: Positive for urinary tract infection, severe dementia, bipolar disorder with schizophrenia, decubitus ulcer, hypertension, dyslipidemia, insomnia, peripheral vascular disease, atherosclerosis, seizure disorder, pseudomembranous colitis, history of hysterectomy, thyroidectomy, appendectomy, left total knee replacement, Nabeel fundoplication, esophageal dilatation. MEDICATIONS: Included omeprazole, mirtazapine, Divalproex, spironolactone, metoprolol, Pravastatin, clopidogrel, and albuterol. ALLERGIES: CHLORPROMAZINE, ASPIRIN, RISPERIDONE, HALOPERIDOL, CELECOXIB, SULFA. SOCIAL HISTORY: The patient quit smoking 20 years ago. She does not drink alcohol. FAMILY HISTORY: Negative for coronary artery disease. REVIEW OF SYSTEMS: Otherwise negative. PHYSICAL EXAMINATION: VITAL SIGNS: Blood pressure 120/60, pulse 67 and regular. HEENT: Negative, 2+ carotid upstrokes. No bruits. LUNGS: Clear. HEART: Regular with 1/6 systolic murmur, no gallop. ABDOMEN: Soft, no bruits. EXTREMITIES: Without edema. 1+ distal pulses. NEUROLOGIC: Grossly nonfocal. The patient is alexia upper and lower extremities. CARDIOLOGY STUDIES: Telemetry was reviewed and showed sinus rhythm. Artifact was recorded on telemetry which was interpreted as ventricular tachycardia. DIAGNOSES: 1. Acute respiratory failure. 2. Dementia. 3. Bipolar disorder. 4. Schizophrenia. 5. Hypertension. 6. Peripheral vascular disease. 7. Atherosclerosis. 8. Urinary tract infection. 9. Sacral decubitus ulcer. DISPOSITION: Telemetry showed no significant arrhythmias. We will continue current medical program. Her family wished her to be full code. She will be weaned off the ventilator as tolerated. She will be monitored on telemetry. MD Opal Mccloud , 03:29 PM , 08:[address] [facility]
[2017-06-08] VITALS (20 sets, daily range): BP systolic 94–126; BP diastolic 48–58; PULSE 42–66; RESP 15–19; TEMP 97–97.7; O2SAT 88–100
[2017-06-08] MEDS: MEROPENEM INJ 1,000 MG in SODIUM CHLORIDE 0.9% INJ 100 ML IV SCH ×4 (00:25→21:04)
[2017-06-08] MEDS: NOREPINEPHRINE INJ 4 MG in SODIUM CHLOR 0.9% 250 ML INJ 250 ML IV PRN ×2 (02:17→21:49)
[2017-06-08] MEDS: CHLORHEXIDINE GLUCONATE 2 % 1 PACK (2 CLOTHS)(taper/protocol) TOPICAL SCH (04:00)
[2017-06-08] MEDS: RESP: ALBUTEROL 2.5 MG/IPRATROPIUM 0.5 MG NEB (SCH) NEB ×4 (04:09→19:32)
[2017-06-08] MEDS: RESP: SODIUM CHLORIDE 3% 4 ML NEB NEB SCH ×4 (04:09→19:32)
[2017-06-08] MEDS: ENOXAPARIN SODIUM 30 MG/0.3 ML SYRINGE SQ SCH (04:56)
[2017-06-08] MEDS: LEVOTHYROXINE SODIUM 100 MCG TAB PEG SCH (04:56)
[2017-06-08] MEDS: guaiFENesin SOLUTION 200 MG/10 ML CUP PEG SCH ×3 (04:56→20:58)
[2017-06-08] MEDS: DEXT 5%-NACL 0.9% 1000 ML INJ 1,000 ML IV SCH ×3 (04:58→20:58)
[2017-06-08 05:46] LABS: AUTOMATED NEUTROPHIL # 11.1 TH/MM3 (1.8-7.7); BASOPHIL # 0.1 TH/MM3 (0-0.2); BASOPHIL % 0.7 % (0.0-2.0); EOSINOPHIL # 0.1 TH/MM3 (0-0.4); EOSINOPHIL % 0.9 % (0.0-4.0); HEMATOCRIT 30.8 % (35.0-46.0); HEMOGLOBIN 10.1 GM/DL (11.6-15.3); LYMPH % 12.4 % (9.0-44.0); LYMPHOCYTE # 1.8 TH/MM3 (1.0-4.8); MEAN CELL VOLUME 87.8 FL (80.0-100.0); MEAN PLATELET VOLUME 7.6 FL (7.0-11.0); MONO % 10.8 % (0.0-8.0); MONOCYTE # 1.6 TH/MM3 (0-0.9); NEUT % 75.2 % (16.0-70.0); PLATELET COUNT 371 TH/MM3 (150-450); RED CELL DISTRIBUTION WIDTH 17.8 % (11.6-17.2); WHITE BLOOD COUNT 14.7 TH/MM3 (4.0-11.0)
[2017-06-08 06:07] LABS: CALCIUM 8.7 MG/DL (8.5-10.1); CREATININE 0.62 MG/DL (0.50-1.00); MAGNESIUM 2.1 MG/DL (1.5-2.5); PHOSPHORUS 1.8 MG/DL (2.5-4.9)
[2017-06-08] MEDS: CHLORHEXIDINE 0.12% (ORAL KIT) 15 ML CUP MT SCH ×2 (07:46→21:00)
[2017-06-08] MEDS: ASCORBIC ACID 500 MG TAB PEG SCH ×2 (08:15→20:58)
[2017-06-08] MEDS: DIVALPROEX SODIUM SPRINKLES 125 MG CAP G-TUBE SCH ×2 (08:16→20:58)
[2017-06-08] MEDS: MULTIVITAMINS/MINERALS THERAPEUTIC TAB PEG SCH (08:16)
[2017-06-08] MEDS: NYSTATIN SUSP 500,000 U/5 ML CUP SWISH-SWAL SCH ×4 (08:16→20:58)
[2017-06-08] MEDS: SPIRONOLACTONE 25 MG TAB PEG SCH (08:16)
[2017-06-08] MEDS: DOCUSATE SODIUM 50 MG/SENNA 8.6 MG TAB PO SCH ×2 (08:16→20:58)
[2017-06-08] MEDS: FLUCONAZOLE 100 MG TAB PO SCH (08:16)
[2017-06-08] MEDS: SODIUM CHLORIDE 0.9% FLUSH 10 ML FLUSH IV FLUSH SCH ×3 (08:19→20:58)
[2017-06-08] MEDS: CLOPIDOGREL 75 MG TAB PEG SCH (08:21)
[2017-06-08] MEDS: LISINOPRIL 5 MG TAB PO SCH (08:22)
[2017-06-08] MEDS: METOPROLOL TARTRATE 50 MG TAB PEG SCH (08:22)
[2017-06-08] MEDS: LANSOPRAZOLE SOLUTAB 30 MG TAB PEG SCH (09:00)
[2017-06-08] MEDS: fentaNYL DRIP 250 ML IV PRN (10:35)
--- NOTE | 2017-06-08 11:10 | HHI.IDPN ---
Note Infectious Disease Note ID Xcover for Chart reviewed. is an 86 y/o CF with Bipolar disorder, Schizophrenia, UTI, PEG tube in place. Patient was transferred to [facility] because of respiratory distress on 2017. Now intubated on the ventilator. Noted to have thick mucous plug in the right lower lobe. Repeat urine culture has less than 25,000 colonies of gram- negative braulio. She was brought to the emergency department from a [place] [facility] facility. The patient apparently had respiratory symptoms with coughing. She has been on IV antibiotics for possible pneumonia. She also is noted to have a decubitus sacral ulceration. She has an indwelling Frederick catheter. The patient is severely demented per chart review. Overnight events reviewed. No fevers No rash No diarrhea Remains intubated On Levophed 3 mics. Opens eyes spontaneously. Does not follow commands. Moves all 4 extremities. PAST MEDICAL HISTORY 1. Urinary tract infection 2. Hypothyroidism, 3. Dementia, 4. Bipolar disorder, 5. Schizophrenia 6. PEG placement 7. Total abdominal hysterectomy. ALLERGIES SULFA ASPIRIN CELECOXIB HALOPERIDOL RESPERIDONE CHLORPROMAZINE. Current Medications Medications (Trade) Dose Ordered Sig/Db Route Start Time Stop Time Status Last Admin (Vitamin C) 500 mg BID PEG 06/01/17 09:00 06/08/17 08:15 (Plavix) 75 mg DAILY PEG 06/01/17 09:00 06/08/17 08:21 (Lac-Hydrin 12% Lotion) 1 applic BID TOPICAL 06/01/17 09:00 06/07/17 21:00 (Prevacid Odt) 30 mg DAILY PEG 06/01/17 09:00 06/08/17 09:00 (Milk Of Magnesia Liq) 30 ml HS PRN PEG 06/01/17 06:00 (Lopressor) 50 mg BID PEG 06/01/17 09:00 06/07/17 20:13 (Remeron) 15 mg HS PEG 06/01/17 21:00 06/07/17 20:12 (Pravachol) 10 mg HS PEG 06/01/17 21:00 06/07/17 20:12 (Aldactone) 25 mg DAILY PEG 06/01/17 09:00 06/08/17 08:16 (Theragran M Tab) 1 tab DAILY PEG 06/01/17 09:00 06/08/17 08:16 (NS Flush) 2 ml UNSCH PRN IV FLUSH 06/01/17 06:00 (NS Flush) 2 ml BID IV FLUSH 06/01/17 09:00 06/08/17 08:19 (Tylenol 650 Mg/ 20 ml Liq) 650 mg Q4H PRN PEG 06/01/17 06:30 (Lovenox Inj) 30 mg Q24H SQ 06/01/17 06:00 06/08/17 04:56 (Narcan Inj) 0.4 mg UNSCH PRN IV PUSH 06/01/17 06:00 (Peggy-Colace) 1 tab BID PO 06/01/17 09:00 06/08/17 08:16 (Milk Of Magnesia Liq) 30 ml Q12H PRN PO 06/01/17 06:00 (Senokot) 17.2 mg Q12H PRN PO 06/01/17 06:00 (Dulcolax Supp) 10 mg DAILY PRN RECTAL 06/01/17 06:00 (Lactulose Liq) 30 ml DAILY PRN PO 06/01/17 06:00 (Depakote Sprinkles) 250 mg BID G-TUBE 06/01/17 21:00 06/08/17 08:16 (Diflucan) 100 mg DAILY PO 06/03/17 16:30 06/08/17 08:16 (Mycostatin Liq) 5 ml QID SWISH-SWAL 06/03/17 18:00 06/08/17 08:16 (Prinivil) 5 mg DAILY PO 06/05/17 09:00 06/06/17 09:09 (D50w (Vial) Inj) 50 ml UNSCH PRN IV PUSH 06/07/17 04:00 (Glucagon Inj) 1 mg UNSCH PRN OTHER 06/07/17 04:00 Dextrose/Sodium Chloride 1,000 ml @ 75 mls/hr [id number] IV 06/07/17 05:00 06/08/17 07:45 (Peridex 0.12% Liq) 15 ml BID@08,20 MT 06/07/17 20:00 06/08/17 07:46 Propofol 100 ml @ 1.89 mls/hr TITRATE PRN IV 06/07/17 11:00 06/07/17 14:00 Fentanyl Citrate 250 ml @ 5 mls/hr TITRATE PRN IV 06/07/17 11:15 06/08/17 10:35 (Duoneb Neb) 1 ampule Q6HR NEB NEB 06/07/17 16:00 06/08/17 08:02 (Albuterol Neb) 2.5 mg Q2HR NEB PRN NEB 06/07/17 11:15 (NS Flush) DAILY IV FLUSH 06/08/17 09:00 06/08/17 08:19 (NS Flush) UNSCH PRN IV FLUSH 06/07/17 12:00 (Robitussin Liq) 400 mg Q8HR PEG 06/07/17 14:00 06/08/17 04:56 (Sodium Chloride 3% Neb) 2 ml Q6HR NEB NEB 06/07/17 16:00 06/14/17 15:59 06/08/17 08:02 (ASP Crit: Doc ESBL, MDR A baumannii or P aer) 1 UNSCH X1 PRN .XX 06/07/17 14:45 06/08/17 14:44 ([facility] 1 UNSCH X1 PRN XX 06/07/17 14:45 06/08/17 14:44 Meropenem 1000 mg/ Sodium Chloride 100 ml @ 200 mls/hr Q8H IV 06/07/17 15:00 06/08/17 04:57 ([facility]) 1 UNSCH X1 PRN XX 06/07/17 14:45 06/08/17 14:44 Norepinephrine Bitartrate 4 mg/ Sodium Chloride 254 ml @ 7.62 mls/hr TITRATE PRN IV 06/07/17 20:00 06/08/17 02:17 (Synthroid) 200 mcg DAILY@0600 PEG 06/08/17 06:00 06/08/17 04:56 Miscellaneous Information Patient in critical care unit? Ass... Q361D .XX 06/07/17 21:00 06/07/17 21:00 (Chlorhexidine 2% Cloth) 3 pack DAILY@04 TOPICAL 06/08/17 04:00 06/12/17 04:01 06/08/17 04:00 (Chlorhexidine 2% Cloth) 3 pack UNSCH PRN TOPICAL 06/07/17 21:00 06/12/17 20:58 OBJECTIVE: Vital Signs Date Time Temp Pulse Resp B/P (MAP) Pulse Ox O2 Delivery O2 Flow Rate FiO2 06/08/17 10:00 47 06/08/17 10:00 47 89/44 06/08/17 09:00 52 86/44 06/08/17 08:30 56 96/51 06/08/17 08:05 99 30 06/08/17 08:00 45 06/08/17 08:00 54 06/08/17 08:00 97.0 54 19 118/54 (75) 98 06/08/17 08:00 54 118/54 06/08/17 07:30 48 97/49 06/08/17 07:00 100 Mechanical Ventilator 30 06/08/17 07:00 48 96/50 06/08/17 06:00 51 06/08/17 04:09 100 45 06/08/17 04:00 55 06/08/17 04:00 97.6 52 16 102/49 (66) 100 06/08/17 04:00 45 06/08/17 03:35 55 102/49 06/08/17 03:25 108/52 06/08/17 02:17 58 103/51 06/08/17 02:00 60 06/08/17 01:22 98 50 06/08/17 00:25 65 100/49 06/08/17 00:00 97.5 60 16 97/48 (64) 99 06/08/17 00:00 70 06/08/17 00:00 60 06/07/17 22:00 62 06/07/17 20:57 100 70 06/07/17 20:00 63 06/07/17 20:00 97.2 72 19 101/47 (65) 100 06/07/17 20:00 70 06/07/17 19:00 100 Mechanical Ventilator 70 06/07/17 18:21 62 72/37 06/07/17 18:00 62 06/07/17 17:00 82 06/07/17 16:10 98 80 06/07/17 16:00 69 06/07/17 16:00 98.0 69 26 142/63 (89) 92 06/07/17 16:00 69 142/63 06/07/17 14:15 70 92/55 06/07/17 14:00 70 121/59 06/07/17 14:00 70 06/07/17 13:40 97 90 06/07/17 12:00 97 100 06/07/17 11:20 100 100 Laboratory Tests Laboratory Tests Test 06/06/17 12:15 06/07/17 07:42 06/07/17 15:04 06/08/17 05:20 White Blood Count 10.3 TH/MM3 14.2 TH/MM3 21.0 TH/MM3 14.7 TH/MM3 Red Blood Count 3.78 MIL/MM3 4.04 MIL/MM3 3.98 MIL/MM3 3.50 MIL/MM3 Hemoglobin 11.1 GM/DL 11.6 GM/DL 11.4 GM/DL 10.1 GM/DL Hematocrit 33.5 % 36.1 % 35.2 % 30.8 % Mean Corpuscular Volume 88.5 FL 89.5 FL 88.5 FL 87.8 FL Mean Corpuscular Hemoglobin 29.4 PG 28.8 PG 28.5 PG 29.0 PG Mean Corpuscular Hemoglobin Concent 33.3 % 32.2 % 32.3 % 33.0 % Red Cell Distribution Width 17.8 % 17.9 % 18.0 % 17.8 % Platelet Count 371 TH/MM3 417 TH/MM3 396 TH/MM3 371 TH/MM3 Mean Platelet Volume 7.8 FL 7.8 FL 7.9 FL 7.6 FL Neutrophils (%) (Auto) 66.9 % 72.2 % 86.8 % 75.2 % Lymphocytes (%) (Auto) 19.5 % 17.5 % 5.8 % 12.4 % Monocytes (%) (Auto) 9.3 % 7.9 % 6.1 % 10.8 % Eosinophils (%) (Auto) 3.4 % 1.9 % 0.5 % 0.9 % Basophils (%) (Auto) 0.9 % 0.5 % 0.8 % 0.7 % Neutrophils # (Auto) 6.9 TH/MM3 10.2 TH/MM3 18.3 TH/MM3 11.1 TH/MM3 Lymphocytes # (Auto) 2.0 TH/MM3 2.5 TH/MM3 1.2 TH/MM3 1.8 TH/MM3 Monocytes # (Auto) 1.0 TH/MM3 1.1 TH/MM3 1.3 TH/MM3 1.6 TH/MM3 Eosinophils # (Auto) 0.4 TH/MM3 0.3 TH/MM3 0.1 TH/MM3 0.1 TH/MM3 Basophils # (Auto) 0.1 TH/MM3 0.1 TH/MM3 0.2 TH/MM3 0.1 TH/MM3 CBC Comment DIFF FINAL DIFF FINAL DIFF FINAL DIFF FINAL Differential Comment Microbiology Date/Time Source Procedure Growth Status 06/07/17 11:30 Bronchial Washings Left Lower Lobe Fungal Smear Pending Received 06/07/17 11:30 Bronchial Washings Left Lower Lobe Fungal Culture Pending Received 06/05/17 19:44 Urine Catheterized Urine Urine Culture - Final Pseudomonas Aeruginosa Complete Date/Time Source Procedure Growth Status 06/07/17 11:30 Bronchial Washings Left Lower Lobe Fungal Smear Pending Received 06/07/17 11:30 Bronchial Washings Left Lower Lobe Fungal Culture Pending Received 06/07/17 11:30 Bronchial Washings Left Lower Lobe Acid Fast Stain Pending Received 06/07/17 11:30 Bronchial Washings Left Lower Lobe Mycobacterial Culture Pending Received 06/07/17 11:30 Bronchial Washings Left Lower Lobe Gram Stain - Final Resulted 06/07/17 11:30 Bronchial Washings Left Lower Lobe Bronchial Culture Pending Resulted 06/05/17 19:44 Urine Catheterized Urine Urine Culture - Final Pseudomonas Aeruginosa Complete PHYSICAL EXAMINATION GENERAL: Awake. On the ventilator. HEENT: Head is atraumatic. Extraocular movements are grossly intact, pupils reactive to light. No icterus. Oropharynx moist mucosa. NECK: Supple. LUNGS: Decreased breath sounds HEART: Regular S1 and S2. No audible murmur. ABDOMEN: Bowel sounds present, soft. No tenderness appreciated. EXTREMITIES: No clubbing or cyanosis, no edema. Contractures of the lower extremities. NEUROLOGIC: Opens eyes, does not follow commands. Moves all 4 extremities. PSYCHIATRIC: Difficult to assess. IV line sites with no e.o infection IMPRESSION 1. Aspiration Pneumonia in Health care setting. 2. Acute respiratory failure on vent. 3. Urinary tract infection due to ESBL E-coli and PSAE. 4. Severe dementia. 5. Bipolar disorder, Schizophrenia. RECOMMENDATIONS 1. Continue meropenem 2. Follow cultures. 3. Monitor clinical status. 4. Diflucan for thrush. Will follow prn over the weekend. If any change in clinical condition or questions please call back. to resume care on Saturday. Johanna Ferrara MD Jun 08, 2017 11:10
--- NOTE | 2017-06-08 13:13 | HHI.PR ---
Subjective Remarks She is alert and intubated and on a vent. Objective Vital Signs Date Time Temp Pulse Resp B/P (MAP) Pulse Ox O2 Delivery O2 Flow Rate FiO2 06/08/17 12:00 97.5 47 16 94/48 (63) 99 06/08/17 12:00 45 06/08/17 12:00 47 06/08/17 11:08 97 30 06/08/17 10:00 47 06/08/17 10:00 47 89/44 06/08/17 09:00 52 86/44 06/08/17 08:30 56 96/51 06/08/17 08:05 99 30 06/08/17 08:00 45 06/08/17 08:00 54 06/08/17 08:00 97.0 54 19 118/54 (75) 98 06/08/17 08:00 54 118/54 06/08/17 07:30 48 97/49 06/08/17 07:00 100 Mechanical Ventilator 30 06/08/17 07:00 48 96/50 06/08/17 06:00 51 06/08/17 04:09 100 45 06/08/17 04:00 55 06/08/17 04:00 97.6 52 16 102/49 (66) 100 06/08/17 04:00 45 06/08/17 03:35 55 102/49 06/08/17 03:25 108/52 06/08/17 02:17 58 103/51 06/08/17 02:00 60 06/08/17 01:22 98 50 06/08/17 00:25 65 100/49 06/08/17 00:00 97.5 60 16 97/48 (64) 99 06/08/17 00:00 70 06/08/17 00:00 60 06/07/17 22:00 62 06/07/17 20:57 100 70 06/07/17 20:00 63 06/07/17 20:00 97.2 72 19 101/47 (65) 100 06/07/17 20:00 70 06/07/17 19:00 100 Mechanical Ventilator 70 06/07/17 18:21 62 72/37 06/07/17 18:00 62 06/07/17 17:00 82 06/07/17 16:10 98 80 06/07/17 16:00 69 06/07/17 16:00 98.0 69 26 142/63 (89) 92 06/07/17 16:00 69 142/63 06/07/17 14:15 70 92/55 06/07/17 14:00 70 121/59 06/07/17 14:00 70 06/07/17 13:40 97 90 I/O 06/07/17 06/07/17 06/07/17 06/08/17 06/08/17 06/08/17 07:00 15:00 23:00 07:00 15:00 23:00 Intake Total 445 ml 100 ml 1052 ml 1650 ml 1250 ml Output Total 850 ml 660 ml Balance 445 ml 100 ml 202 ml 990 ml 1250 ml Intake Oral 50 ml IV Total 100 ml 1052 ml 1350 ml 1250 ml Tube Feeding 195 ml Other 200 ml 300 ml Output Urine Total 850 ml 350 ml Gastric Drainage Total 310 ml # Bowel Movements 0 0 Result Diagram: 06/08/17 0520 06/08/17 0520 Imaging Last Impressions Chest X-Ray 06/07/17 1157 Signed Impressions: Service Date/Time: Wednesday, June 07, 2017 12:24 - CONCLUSION: Line in good position. Consolidative changes left base.. Celestine Ritter MD FACR Abdomen X-Ray 06/07/17 0000 Signed Impressions: Service Date/Time: Wednesday, June 07, 2017 12:57 - CONCLUSION: Contrast is noted within the stomach. Kristopher Poole MD Objective Remarks HEENT - AT/NC, ETT in place Resp - sonorous rhonci but no other adventitious sounds heard CV - NO Murmur or rubs heard. ABD - PEG in place and without apparent tenderness. BS are active MS - Large sacral decub noted and contractures of extremities again noted Medications and IVs Current Medications Medications (Trade) Dose Ordered Sig/Db Route Start Time Stop Time Status Last Admin (Vitamin C) 500 mg BID PEG 06/01/17 09:00 06/08/17 08:15 (Plavix) 75 mg DAILY PEG 06/01/17 09:00 06/08/17 08:21 (Lac-Hydrin 12% Lotion) 1 applic BID TOPICAL 06/01/17 09:00 06/07/17 21:00 (Prevacid Odt) 30 mg DAILY PEG 06/01/17 09:00 06/08/17 09:00 (Milk Of Magnesia Liq) 30 ml HS PRN PEG 06/01/17 06:00 (Lopressor) 50 mg BID PEG 06/01/17 09:00 06/07/17 20:13 (Remeron) 15 mg HS PEG 06/01/17 21:00 06/07/17 20:12 (Pravachol) 10 mg HS PEG 06/01/17 21:00 06/07/17 20:12 (Aldactone) 25 mg DAILY PEG 06/01/17 09:00 06/08/17 08:16 (Theragran M Tab) 1 tab DAILY PEG 06/01/17 09:00 06/08/17 08:16 (NS Flush) 2 ml UNSCH PRN IV FLUSH 06/01/17 06:00 (NS Flush) 2 ml BID IV FLUSH 06/01/17 09:00 06/08/17 08:19 (Tylenol 650 Mg/ 20 ml Liq) 650 mg Q4H PRN PEG 06/01/17 06:30 (Lovenox Inj) 30 mg Q24H SQ 06/01/17 06:00 06/08/17 04:56 (Narcan Inj) 0.4 mg UNSCH PRN IV PUSH 06/01/17 06:00 (Peggy-Colace) 1 tab BID PO 06/01/17 09:00 06/08/17 08:16 (Milk Of Magnesia Liq) 30 ml Q12H PRN PO 06/01/17 06:00 (Senokot) 17.2 mg Q12H PRN PO 06/01/17 06:00 (Dulcolax Supp) 10 mg DAILY PRN RECTAL 06/01/17 06:00 (Lactulose Liq) 30 ml DAILY PRN PO 06/01/17 06:00 (Depakote Sprinkles) 250 mg BID G-TUBE 06/01/17 21:00 06/08/17 08:16 (Diflucan) 100 mg DAILY PO 06/03/17 16:30 06/08/17 08:16 (Mycostatin Liq) 5 ml QID SWISH-SWAL 06/03/17 18:00 06/08/17 08:16 (Prinivil) 5 mg DAILY PO 06/05/17 09:00 06/06/17 09:09 (D50w (Vial) Inj) 50 ml UNSCH PRN IV PUSH 06/07/17 04:00 (Glucagon Inj) 1 mg UNSCH PRN OTHER 06/07/17 04:00 Dextrose/Sodium Chloride 1,000 ml @ 75 mls/hr [id number] IV 06/07/17 05:00 06/08/17 07:45 (Peridex 0.12% Liq) 15 ml BID@08,20 MT 06/07/17 20:00 06/08/17 07:46 Propofol 100 ml @ 1.89 mls/hr TITRATE PRN IV 06/07/17 11:00 06/07/17 14:00 Fentanyl Citrate 250 ml @ 5 mls/hr TITRATE PRN IV 06/07/17 11:15 06/08/17 10:35 (Duoneb Neb) 1 ampule Q6HR NEB NEB 06/07/17 16:00 06/08/17 08:02 (Albuterol Neb) 2.5 mg Q2HR NEB PRN NEB 06/07/17 11:15 (NS Flush) DAILY IV FLUSH 06/08/17 09:00 06/08/17 08:19 (NS Flush) UNSCH PRN IV FLUSH 06/07/17 12:00 (Robitussin Liq) 400 mg Q8HR PEG 06/07/17 14:00 06/08/17 04:56 (Sodium Chloride 3% Neb) 2 ml Q6HR NEB NEB 06/07/17 16:00 06/14/17 15:59 06/08/17 08:02 (ASP Crit: Doc ESBL, MDR A baumannii or P aer) 1 UNSCH X1 PRN .XX 06/07/17 14:45 06/08/17 14:44 ([facility]) 1 UNSCH X1 PRN XX 06/07/17 14:45 06/08/17 14:44 Meropenem 1000 mg/ Sodium Chloride 100 ml @ 200 mls/hr Q8H IV 06/07/17 15:00 06/08/17 04:57 ([facility] Information) 1 UNSCH X1 PRN XX 06/07/17 14:45 06/08/17 14:44 Norepinephrine Bitartrate 4 mg/ Sodium Chloride 254 ml @ 7.62 mls/hr TITRATE PRN IV 06/07/17 20:00 06/08/17 02:17 (Synthroid) 200 mcg DAILY@0600 PEG 06/08/17 06:00 06/08/17 04:56 Miscellaneous Information Patient in critical care unit? Ass... Q361D .XX 06/07/17 21:00 06/07/17 21:00 (Chlorhexidine 2% Cloth) 3 pack DAILY@04 TOPICAL 06/08/17 04:00 06/12/17 04:01 06/08/17 04:00 (Chlorhexidine 2% Cloth) 3 pack UNSCH PRN TOPICAL 06/07/17 21:00 06/12/17 20:58 Assessment and Plan Problem List: (1) Alzheimer disease ICD Codes: G30.9 - Alzheimer's disease, unspecified Status: Chronic Plan: Palliative care consulted to eval and discuss with family. Cont meds from outpatient (2) UTI (urinary tract infection) ICD Codes: N39.0 - Urinary tract infection, site not specified Status: Acute Plan: Antibiotics as ordered and ID (3) Sacral decubitus ulcer ICD Codes: L89.159 - Pressure ulcer of sacral region, unspecified stage Status: Acute Plan: Wound care nurse following (4) BipolarII Status: Chronic Plan: Cont meds from outpatient Assessment and Plan F/U wound care and ID recommendations. Cont antibiotics and F/U urine culture. Cont meds from SNF. Discharge Planning D/C when stable Problem Qualifiers (1) Alzheimer disease: (2) UTI (urinary tract infection): Qualified Codes: T83.511A - Infection and inflammatory reaction due to indwelling urethral catheter, initial encounter; N39.0 - Urinary tract infection , site not specified (3) Sacral decubitus ulcer: Qualified Codes: L89.154 - Pressure ulcer of sacral region, stage 4 Ethan Logan Jun 08, 2017 13:13
[2017-06-08] MEDS ORDERED: MIDAZOLAM 100 MG/100 ML INJ 100 ML IV PRN (16:30)
--- NOTE | 2017-06-08 17:13 | HHI.CCPN ---
Subjective Remarks/Hospital Course This is an 86-year-old female. Date of admission 06/01/2017. Date of consultation 06/07/2017. 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 She was diagnosed with a urinary tract infection.. She had a stage IV sacral decubitus ulcer 11 x 7 cm in wound care with infectious disease was consulted to evaluate that aspect of her care. Patient was treated with ertapenem form BSL positive E. coli urinary tract infection/Pseudomonas UTI and stage IV sacral decubitus ulcer. Last night, patient became confused and pulled out her PEG tube. This morning she had an acute decline in respiratory status including hypoxia and hypercapnia. Chest x- ray revealed left lower lobe infiltrate versus mucous plugging. A rapid response team was called the patient was transferred on 522. Upon my arrival, patient was tachypneic with saturations in the low 80s. Patient was emergently intubated/fiberoptic bronchoscopy was performed emergently as able to to contact son and central line placed due to extremely poor IV access. Subjective 3/4: Afebrile. FiO2 to 30%. We will wean PEEP to 5. Oxygenating much better at the present time. Arousable on the ventilator. Sticks out her tongue. Objective Vital Signs Date Time Temp Pulse Resp B/P (MAP) Pulse Ox O2 Delivery O2 Flow Rate FiO2 06/08/17 16:00 51 06/08/17 16:00 97.0 15 114/58 (76) 97 06/08/17 16:00 45 06/08/17 07:00 Mechanical Ventilator 06/07/17 09:03 15.00 Intake and Output 06/08/17 06/08/17 06/09/17 08:00 16:00 00:00 Intake Total 2650 ml 250 ml Output Total 660 ml Balance 1990 ml 250 ml Result Diagram: 06/08/17 0520 06/08/17 0520 Other Results Microbiology Date/Time Source Procedure Growth Status 06/07/17 11:30 Bronchial Washings Left Lower Lobe Fungal Smear - Final NO FUNGAL ELEMENTS SEEN. Resulted 06/07/17 11:30 Bronchial Washings Left Lower Lobe Fungal Culture Pending Resulted 06/05/17 19:44 Urine Catheterized Urine Urine Culture - Final Pseudomonas Aeruginosa Complete Imaging Last Impressions Chest X-Ray 06/07/17 1157 Signed Impressions: Service Date/Time: Wednesday, June 07, 2017 12:24 - CONCLUSION: Line in good position. Consolidative changes left base.. Celestine Ritter MD FACR Abdomen X-Ray 06/07/17 0000 Signed Impressions: Service Date/Time: Wednesday, June 07, 2017 12:57 - CONCLUSION: Contrast is noted within the stomach. Kristopher Poole MD Objective Remarks GENERAL: 86-year-old female currently orotracheally intubated SKIN: Warm and dry. Stage IV sacral decubitus ulcer 11 x 7 cm, 2 lateral foot 2 x 1 cm stage II ulcers HEAD: Atraumatic. Normocephalic. EYES: Pupils equal and round about 3 mm bilaterally and reactive. No scleral icterus. No injection or drainage. ENT: No nasal bleeding or discharge. Mucous membranes pink and moist. NECK: Trachea midline. No JVD. CARDIOVASCULAR: Regular rate and rhythm. S1, S2. No S4. RESPIRATORY: Diminished breath sounds involving the left lower lobe. No wheezing. GASTROINTESTINAL: Abdomen soft, non-tender, nondistended. PEG tube site is removed and the left upper quadrant. No bleeding is appreciated MUSCULOSKELETAL: Extremities without significant peripheral edema. Patient appears to be alexia the bilateral upper extremities and lower extremities NEUROLOGICAL: Currently orotracheally intubated. Positive gag and corneal reflex. Moving all 4 extremities spontaneously but not to command. Urinary Catheter: Yes Assessment to: Continue Frederick insert reason: Prolonged Immobilization Vascular Central Line Catheter: Yes Assessment to: Continue Date of Insertion: Jun 07, 2017 Line: Central Venous Catheter Side: Right Location: Internal, Jugular A/P Assessment and Plan Neuro/Psych: Dementia disorder NOS Bipolar disorder Schizophrenia disorder NOS Acute toxic metabolic encephalopathy secondary hypoxia Seizure disorder NOS Hard of hearing Currently on midazolam drip at 4 mg an hour for sedation while intubated Goal of RASS -2 Daily sedation vacation Acetaminophen 650 mg by PEG every 6 hours as needed fever Currently on Depakote 250 mg by tube twice daily. Currently on mirtazapine 15 mg at night. Continue CV: Hypertension Dyslipidemia Atherosclerotic vascular disease Currently on D5 normal saline at 75 cc an hour discontinued 0600 06/09 Currently norepinephrine to maintain mean arterial pressure greater than equal to 65 Metoprolol succinate 50 mg by PEG twice daily/home medication will be held in light of bradycardia Lisinopril 5 mg daily will be held in light of hypertension Spironolactone 25 mg p.o. daily has been held Continue clopidogrel bisulfate 75 mg daily for peripheral vascular disease Continue pravastatin 10 mg p.o. daily for dyslipidemia Resp: Acute respiratory failure secondary to left lower lobe pneumonia and mucous plugging ACV 16/500/5/30 Ventilator bundle Albuterol/ipratropium aerosols every 6 hours with albuterol aerosols every 2 hours as needed dyspnea Hypertonic saline aerosols every 6 hours for 7 days as mucolytic Guaifenesin liquid 400 mg every 8 hours Spontaneous breathing trials in a.m. Status post bronchoscopy 06/07. Please see note GI: Self removal of PEG tube Gastroesophageal reflux disease History of esophageal dilatation/dislocation Status post PEG tube placement Constipation NG tube has been placed while intubated. Okay to remove. PEG tube replaced by Dr. Smith/GI at bedside. Gastrografin confirms placement. Restarted tube feeds with Jevity 1.5 goal 55 cc/h per dietary recommendations Omeprazole 30 mg by PEG for GI prophylaxis Docusate sodium/senna 100 mg/8.6 mg 1 tablet by PEG twice daily for bowel regimen : Recurrent urinary tract infections Frederick catheter has been placed for accurate I's and O's in a critically ill patient Endo: Hypothyroidism History of thyroidectomy Novulog sliding scale insulin with Accu-Cheks every 6 hours to maintain euglycemia Currently on levothyroxine 100 mcg daily. Increase to 200 mcg daily. Recheck TSH in 1 week ordered. Noted no IV L levothyroxine available at this facility except for emergent situations TSH was 88. Renal: Creatinine currently within normal limits Monitor urine output Accurate I's and O's Heme: CBC currently within normal limits Currently on enoxaparin 30 mg subcu daily for DVT prophylaxis ID: E. coli ESBL positive/Pseudomonas urinary tract infection Sacral decubitus ulcer Currently on meropenem day #2. Switch from ertapenem on 06/07 Currently on fluconazole 100 mg by tube daily for thrush with nystatin swish and spit Followed by infectious disease/Dr. Mcneill Pertinent cultures 06/06 -BAL --gram-positive cocci in pairs. 06/05 -urine -Pseudomonas 06/01 -urine -ESBL positive E. coli/pseudomonas MSK: Generalized debilitation PT evaluate and treat FEN: Hypophosphatemia Replace electrolytes as clinically indicated 15 mmol sodium/IV 1 now. Recheck in a.m. Access -Utilize right IJ CVL day #2 placed 3/ Prophylaxis -GI -omeprazole -DVT -SCD/enoxaparin Critical Care: The total critical care time was 35 minutes. Time to perform other separately billable procedures was not included in the critical care time. Soren Reyes MD Jun 08, 2017 17:13
[2017-06-08] MEDS ORDERED: SODIUM PHOSPHATE INJ 15 MMOL in SODIUM CHLORIDE 0.9% INJ 150 ML IV ONE (20:00)
[2017-06-08] MEDS: PRAVASTATIN SOD 10 MG TAB PEG SCH (20:58)
[2017-06-08] MEDS: MIRTAZAPINE 15 MG TAB PEG SCH (20:58)
[2017-06-08] MEDS: JUVEN POWDER 1 PACK G-TUBE SCH (21:00)
[2017-06-08] MEDS: LACTIC ACID (AMMONIUM LACTATE) 12% LOTION 225 GM BTL TOPICAL SCH (21:00)
[2017-06-09] VITALS (21 sets, daily range): BP systolic 87–127; BP diastolic 42–60; PULSE 50–76; RESP 16–34; TEMP 95.6–98.4; O2SAT 89–98
[2017-06-09] MEDS: RESP: SODIUM CHLORIDE 3% 4 ML NEB NEB SCH ×4 (03:07→19:59)
[2017-06-09] MEDS: RESP: ALBUTEROL 2.5 MG/IPRATROPIUM 0.5 MG NEB (SCH) NEB ×4 (03:07→19:59)
[2017-06-09] MEDS: CHLORHEXIDINE GLUCONATE 2 % 1 PACK (2 CLOTHS)(taper/protocol) TOPICAL SCH (03:32)
[2017-06-09 05:36] LABS: AUTOMATED NEUTROPHIL # 8.9 TH/MM3 (1.8-7.7); BASOPHIL # 0.1 TH/MM3 (0-0.2); BASOPHIL % 0.6 % (0.0-2.0); EOSINOPHIL # 0.2 TH/MM3 (0-0.4); EOSINOPHIL % 1.5 % (0.0-4.0); HEMATOCRIT 30.1 % (35.0-46.0); HEMOGLOBIN 9.7 GM/DL (11.6-15.3); LYMPH % 10.3 % (9.0-44.0); LYMPHOCYTE # 1.2 TH/MM3 (1.0-4.8); MEAN CELL VOLUME 88.8 FL (80.0-100.0); MEAN CORPUSCULAR HEMOGLOBIN 28.7 PG (27.0-34.0); MEAN CORPUSCULAR HGB CONC 32.3 % (32.0-36.0); MONO % 10.9 % (0.0-8.0); MONOCYTE # 1.3 TH/MM3 (0-0.9); NEUT % 76.7 % (16.0-70.0); PLATELET COUNT 339 TH/MM3 (150-450); RED BLOOD COUNT 3.39 MIL/MM3 (4.00-5.30); RED CELL DISTRIBUTION WIDTH 18.7 % (11.6-17.2); WHITE BLOOD COUNT 11.6 TH/MM3 (4.0-11.0)
[2017-06-09] MEDS: LEVOTHYROXINE SODIUM 100 MCG TAB PEG SCH (05:52)
[2017-06-09] MEDS: guaiFENesin SOLUTION 200 MG/10 ML CUP PEG SCH ×3 (05:52→22:44)
[2017-06-09] MEDS: ENOXAPARIN SODIUM 30 MG/0.3 ML SYRINGE SQ SCH (05:52)
[2017-06-09] MEDS: MEROPENEM INJ 1,000 MG in SODIUM CHLORIDE 0.9% INJ 100 ML IV SCH ×3 (05:52→22:46)
--- NOTE | 2017-06-09 06:06 | RADRPT ---
EXAM DATE/TIME: 06/09/2017 03:56 [facility] COMPARISON: CHEST SINGLE AP, June 07, 2017, 12:24. INDICATIONS : Shortness of breath, possible pulmonary disease. MEDICAL HISTORY : Hypertension. Gastroesophageal reflux disease. Hiatal hernia. CVA A-Fib SURGICAL HISTORY : Appendectomy. Hysterectomy. ENCOUNTER: Subsequent ACUITY: 1 week PAIN SCORE: Non-responsive. LOCATION: Bilateral chest FINDINGS: ET tube is at the level of the monts[place]at and is directed towards the right main bronchus. Gastric tube tip and side-port project within the stomach. Right internal jugular catheter tip in the mid superio r vena cava. There is persistent consolidation in the left lower lung with loss of delineation of th e entire left hemidiaphragm. The right lung is clear. Heart is stable in size. CONCLUSION: 1. ET tube tip convex at the right main bronchus and needs to be withdrawn 2 cm. 2. Persistent left lower lobe consolidation. Ang Booth MD on June 09, 2017 at 6:04 Board Certified Radiologist. This report was verified electronically.
[2017-06-09 06:08] LABS: ALBUMIN 1.8 GM/DL (3.4-5.0); ALKALINE PHOSPHATASE 425 U/L (45-117); ALT (GPT) 151 U/L (10-53); AST (GOT) 220 U/L (15-37); BICARBONATE 22.7 MEQ/L (21.0-32.0); BLOOD UREA NITROGEN 9 MG/DL (7-18); CALCIUM 8.2 MG/DL (8.5-10.1); CHLORIDE 113 MEQ/L (98-107); CREATININE 0.48 MG/DL (0.50-1.00); GLOMERULAR FILTRATION RATE 123 ML/MIN (>89); GLUCOSE,RANDOM 109 MG/DL (74-106); MAGNESIUM 2.1 MG/DL (1.5-2.5); PHOSPHORUS 2.3 MG/DL (2.5-4.9); SODIUM (NA) 144 MEQ/L (136-145); TOTAL BILIRUBIN ADULT 0.7 MG/DL (0.2-1.0); TOTAL PROTEIN 5.4 GM/DL (6.4-8.2)
[2017-06-09] MEDS: CHLORHEXIDINE 0.12% (ORAL KIT) 15 ML CUP MT SCH ×2 (08:00→20:00)
[2017-06-09] MEDS: LANSOPRAZOLE SOLUTAB 30 MG TAB PEG SCH (08:17)
[2017-06-09] MEDS: ASCORBIC ACID 500 MG TAB PEG SCH ×2 (08:18→22:45)
[2017-06-09] MEDS: DIVALPROEX SODIUM SPRINKLES 125 MG CAP G-TUBE SCH ×2 (08:18→22:45)
[2017-06-09] MEDS: FLUCONAZOLE 100 MG TAB PO SCH (08:18)
[2017-06-09] MEDS: SPIRONOLACTONE 25 MG TAB PEG SCH (08:18)
[2017-06-09] MEDS: MULTIVITAMINS/MINERALS THERAPEUTIC TAB PEG SCH (08:18)
[2017-06-09] MEDS: DOCUSATE SODIUM 50 MG/SENNA 8.6 MG TAB PO SCH ×2 (08:18→22:45)
[2017-06-09] MEDS: NYSTATIN SUSP 500,000 U/5 ML CUP SWISH-SWAL SCH ×4 (08:18→22:44)
[2017-06-09] MEDS: CLOPIDOGREL 75 MG TAB PEG SCH (08:18)
[2017-06-09] MEDS: LACTIC ACID (AMMONIUM LACTATE) 12% LOTION 225 GM BTL TOPICAL SCH ×2 (08:36→21:00)
[2017-06-09] MEDS: SODIUM CHLORIDE 0.9% FLUSH 10 ML FLUSH IV FLUSH SCH ×3 (08:36→22:46)
[2017-06-09] MEDS: JUVEN POWDER 1 PACK G-TUBE SCH ×2 (08:37→21:00)
[2017-06-09] MEDS: LISINOPRIL 5 MG TAB PO SCH (08:38)
--- NOTE | 2017-06-09 11:35 | HHI.IDPN ---
Note Infectious Disease Note ID Xcover for Chart reviewed. is an 86 y/o CF with Bipolar disorder, Schizophrenia, UTI, PEG tube in place. Patient was transferred to [facility] because of respiratory distress on 2017. Now intubated on the ventilator. Noted to have thick mucous plug in the right lower lobe. Repeat urine culture has less than 25,000 colonies of gram- negative braulio. She was brought to the emergency department from a [place] [facility] facility. The patient apparently had respiratory symptoms with coughing. She has been on IV antibiotics for possible pneumonia. She also is noted to have a decubitus sacral ulceration. She has an indwelling Frederick catheter. The patient is severely demented per chart review. Overnight events reviewed. Periods of hypothermia and could not be taken off pressors, back on pressors. No rash No diarrhea Remains intubated On Levophed 6 mics. Opens eyes spontaneously. Does not follow commands. Moves all 4 extremities. PAST MEDICAL HISTORY 1. Urinary tract infection 2. Hypothyroidism, 3. Dementia, 4. Bipolar disorder, 5. Schizophrenia 6. PEG placement 7. Total abdominal hysterectomy. ALLERGIES SULFA ASPIRIN CELECOXIB HALOPERIDOL RESPERIDONE CHLORPROMAZINE. Current Medications Medications (Trade) Dose Ordered Sig/Db Route Start Time Stop Time Status Last Admin (Vitamin C) 500 mg BID PEG 06/01/17 09:00 06/09/17 08:18 (Plavix) 75 mg DAILY PEG 06/01/17 09:00 06/09/17 08:18 (Lac-Hydrin 12% Lotion) 1 applic BID TOPICAL 06/01/17 09:00 06/09/17 08:36 (Prevacid Odt) 30 mg DAILY PEG 06/01/17 09:00 06/09/17 08:17 (Milk Of Magnesia Liq) 30 ml HS PRN PEG 06/01/17 06:00 (Lopressor) 50 mg BID PEG 06/01/17 09:00 Future Hold 06/07/17 20:13 (Remeron) 15 mg HS PEG 06/01/17 21:00 06/08/17 20:58 (Pravachol) 10 mg HS PEG 06/01/17 21:00 06/08/17 20:58 (Aldactone) 25 mg DAILY PEG 06/01/17 09:00 06/09/17 08:18 (Theragran M Tab) 1 tab DAILY PEG 06/01/17 09:00 06/09/17 08:18 (NS Flush) 2 ml UNSCH PRN IV FLUSH 06/01/17 06:00 (NS Flush) 2 ml BID IV FLUSH 06/01/17 09:00 06/09/17 08:36 (Tylenol 650 Mg/ 20 ml Liq) 650 mg Q4H PRN PEG 06/01/17 06:30 (Lovenox Inj) 30 mg Q24H SQ 06/01/17 06:00 06/09/17 05:52 (Narcan Inj) 0.4 mg UNSCH PRN IV PUSH 06/01/17 06:00 (Peggy-Colace) 1 tab BID PO 06/01/17 09:00 06/09/17 08:18 (Milk Of Magnesia Liq) 30 ml Q12H PRN PO 06/01/17 06:00 (Senokot) 17.2 mg Q12H PRN PO 06/01/17 06:00 (Dulcolax Supp) 10 mg DAILY PRN RECTAL 06/01/17 06:00 (Lactulose Liq) 30 ml DAILY PRN PO 06/01/17 06:00 (Depakote Sprinkles) 250 mg BID G-TUBE 06/01/17 21:00 06/09/17 08:18 (Diflucan) 100 mg DAILY PO 06/03/17 16:30 06/09/17 08:18 (Mycostatin Liq) 5 ml QID SWISH-SWAL 06/03/17 18:00 06/09/17 08:18 (Prinivil) 5 mg DAILY PO 06/05/17 09:00 06/06/17 09:09 (D50w (Vial) Inj) 50 ml UNSCH PRN IV PUSH 06/07/17 04:00 (Glucagon Inj) 1 mg UNSCH PRN OTHER 06/07/17 04:00 (Peridex 0.12% Liq) 15 ml BID@08,20 MT 06/07/17 20:00 06/09/17 08:00 Propofol 100 ml @ 1.89 mls/hr TITRATE PRN IV 06/07/17 11:00 06/07/17 14:00 Fentanyl Citrate 250 ml @ 5 mls/hr TITRATE PRN IV 06/07/17 11:15 06/08/17 10:35 (Duoneb Neb) 1 ampule Q6HR NEB NEB 06/07/17 16:00 06/09/17 08:09 (Albuterol Neb) 2.5 mg Q2HR NEB PRN NEB 06/07/17 11:15 (NS Flush) DAILY IV FLUSH 06/08/17 09:00 06/09/17 08:36 (NS Flush) UNSCH PRN IV FLUSH 06/07/17 12:00 (Robitussin Liq) 400 mg Q8HR PEG 06/07/17 14:00 06/09/17 05:52 (Sodium Chloride 3% Neb) 2 ml Q6HR NEB NEB 06/07/17 16:00 06/14/17 15:59 06/09/17 08:09 Meropenem 1000 mg/ Sodium Chloride 100 ml @ 200 mls/hr Q8H IV 06/07/17 15:00 06/09/17 05:52 Norepinephrine Bitartrate 4 mg/ Sodium Chloride 254 ml @ 7.62 mls/hr TITRATE PRN IV 06/07/17 20:00 06/08/17 21:49 (Synthroid) 200 mcg DAILY@0600 PEG 06/08/17 06:00 06/09/17 05:52 Miscellaneous Information Patient in critical care unit? Ass... [id number] .XX 06/07/17 21:00 06/07/17 21:00 (Chlorhexidine 2% Cloth) 3 pack DAILY@04 TOPICAL 06/08/17 04:00 06/12/17 04:01 06/09/17 03:32 (Chlorhexidine 2% Cloth) 3 pack UNSCH PRN TOPICAL 06/07/17 21:00 06/12/17 20:58 Midazolam HCl 100 ml @ 2 mls/hr TITRATE PRN IV 06/08/17 16:30 06/08/17 16:49 (Miguel Angel Powder) 1 pack BID G-TUBE 06/08/17 21:00 06/09/17 08:37 OBJECTIVE: Vital Signs Date Time Temp Pulse Resp B/P (MAP) Pulse Ox O2 Delivery O2 Flow Rate FiO2 06/09/17 11:12 96 45 06/09/17 10:00 52 06/09/17 09:30 52 117/56 06/09/17 08:45 52 85/42 06/09/17 08:30 58 83/39 06/09/17 08:11 98 45 06/09/17 08:00 53 18 08:00 50 18 08:00 95.6 50 30 97/53 (68) 89 06/09/17 08:00 45 06/09/17 07:30 51 90/47 06/09/17 07:15 54 82/41 06/09/17 07:00 56 67/35 06/09/17 06:20 95 45 06/09/17 06:00 63 06/09/17 04:00 76 06/09/17 04:00 96.7 76 16 87/42 (57) 95 06/09/17 04:00 45 06/09/17 03:06 95 45 06/09/17 02:00 60 06/09/17 02:00 60 109/56 06/09/17 00:08 94 45 06/09/17 00:00 97.0 51 16 91/50 (64) 93 06/09/17 00:00 45 06/09/17 00:00 51 06/08/17 23:45 54 83/44 06/08/17 22:47 89 45 06/08/17 22:00 66 06/08/17 21:49 66 80/43 06/08/17 21:24 96 35 06/08/17 20:00 66 06/08/17 20:00 30 06/08/17 20:00 97.7 66 17 126/56 (79) 88 06/08/17 19:33 93 30 06/08/17 18:00 58 18 16:00 51 06/08/17 16:00 97.0 51 15 114/58 (76) 97 06/08/17 16:00 51 114/58 06/08/17 16:00 45 06/08/17 15:14 98 30 06/08/17 15:00 50 114/57 06/08/17 14:00 42 06/08/17 12:00 97.5 47 16 94/48 (63) 99 06/08/17 12:00 45 06/08/17 12:00 47 Microbiology Date/Time Source Procedure Growth Status 06/07/17 11:30 Bronchial Washings Left Lower Lobe Fungal Smear - Final NO FUNGAL ELEMENTS SEEN. Resulted 06/07/17 11:30 Bronchial Washings Left Lower Lobe Fungal Culture Pending Resulted 06/05/17 19:44 Urine Catheterized Urine Urine Culture - Final Pseudomonas Aeruginosa Complete PHYSICAL EXAMINATION GENERAL: Awake. On the ventilator. HEENT: Head is atraumatic. Extraocular movements are grossly intact, pupils reactive to light. No icterus. Oropharynx moist mucosa. NECK: Supple. LUNGS: Decreased breath sounds HEART: Regular S1 and S2. No audible murmur. ABDOMEN: Bowel sounds present, soft. No tenderness appreciated. EXTREMITIES: No clubbing or cyanosis, no edema. Contractures of the lower extremities. NEUROLOGIC: Opens eyes, does not follow commands. Moves all 4 extremities. PSYCHIATRIC: Difficult to assess. IV line sites with no e.o infection IMPRESSION 1. Aspiration Pneumonia in Health care setting. 2. Acute respiratory failure on vent. 3. Urinary tract infection due to ESBL E-coli and PSAE. 4. Severe dementia. 5. Bipolar disorder, Schizophrenia. RECOMMENDATIONS Continue meropenem IV (ASP: PSAE, ESBL E.coli) Start Vanco IV (target 15-20 ? Line infection) Blood cultures x 1 periphery BCX x 1 from CL. Diflucan for thrush. Follow cultures Follow clinically. to resume care in am. Johanna Ferrara MD Jun 09, 2017 11:35
[2017-06-09] MEDS ORDERED: Vancomycin Consult Pharmacy 1 EA OTHER SCH (11:45)
[2017-06-09] MEDS ORDERED: MIDAZOLAM 100 MG/100 ML INJ 100 ML IV PRN (12:30)
[2017-06-09 12:32] LABS: FREE T3 LESS THAN 0.50 PG/ML (2.18-3.98); FREE T4 0.92 NG/DL (0.76-1.46)
--- NOTE | 2017-06-09 12:35 | HHI.CCPN ---
Subjective Remarks/Hospital Course This is an 86-year-old female. Date of admission 06/01/2017. Date of consultation 06/07/2017. 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 She was diagnosed with a urinary tract infection.. She had a stage IV sacral decubitus ulcer 11 x 7 cm in wound care with infectious disease was consulted to evaluate that aspect of her care. Patient was treated with ertapenem form BSL positive E. coli urinary tract infection/Pseudomonas UTI and stage IV sacral decubitus ulcer. Last night, patient became confused and pulled out her PEG tube. This morning she had an acute decline in respiratory status including hypoxia and hypercapnia. Chest x- ray revealed left lower lobe infiltrate versus mucous plugging. A rapid response team was called the patient was transferred on . Upon my arrival, patient was tachypneic with saturations in the low 80s. Patient was emergently intubated/fiberoptic bronchoscopy was performed emergently as able to to contact son and central line placed due to extremely poor IV access. Subjective 06/09: Afebrile. FiO2 to 30%. We will wean PEEP to 5. Oxygenating much better at the present time. Arousable on the ventilator. Sticks out her tongue. 06/10: He is on Levophed currently at 6 Mr./min, patient decreased significantly currently on Versed 3 mg/hour. LFTs notably significantly elevated today pravastatin placed on hold. Leukocytosis resolving. Objective Vital Signs Date Time Temp Pulse Resp B/P (MAP) Pulse Ox O2 Delivery O2 Flow Rate FiO2 06/09/17 12:15 58 16 102/50 (67) 98 06/09/17 12:00 97.5 06/09/17 12:00 45 06/08/17 07:00 Mechanical Ventilator 06/07/17 09:03 15.00 Intake and Output 06/09/17 06/09/17 06/10/17 08:00 16:00 00:00 Intake Total 1148 ml Output Total 650 ml Balance 498 ml Result Diagram: 06/09/17 0430 06/09/17 0430 Imaging Last Impressions Chest X-Ray 06/09/17 0600 Signed Impressions: Service Date/Time: Friday, June 09, 2017 03:56 - CONCLUSION: 1. ET tube tip convex at the right main bronchus and needs to be withdrawn 2 cm. 2. Persistent left lower lobe consolidation. Ang Booth MD Abdomen X-Ray 06/07/17 0000 Signed Impressions: Service Date/Time: Wednesday, June 07, 2017 12:57 - CONCLUSION: Contrast is noted within the stomach. Kristopher Poole MD Last Impressions Chest X-Ray 06/07/17 1157 Signed Impressions: Service Date/Time: Wednesday, June 07, 2017 12:24 - CONCLUSION: Line in good position. Consolidative changes left base.. Celestine Ritter MD FACR Abdomen X-Ray 06/07/17 0000 Signed Impressions: Service Date/Time: Wednesday, June 07, 2017 12:57 - CONCLUSION: Contrast is noted within the stomach. Kristopher Poole MD Objective Remarks GENERAL: 86-year-old female currently orotracheally intubated, spontaneous eye opening SKIN: Warm and dry. Stage IV sacral decubitus ulcer 11 x 7 cm, 2 lateral foot 2 x 1 cm stage II ulcers HEAD: Atraumatic. Normocephalic. EYES: Pupils equal and round about 3 mm bilaterally and reactive. No scleral icterus. No injection or drainage. ENT: No nasal bleeding or discharge. Mucous membranes pink and moist. NECK: Trachea midline. No JVD. CARDIOVASCULAR: Regular rate and rhythm. S1, S2. No S4. RESPIRATORY: Diminished breath sounds involving the left lower lobe. No wheezing. GASTROINTESTINAL: Abdomen soft, non-tender, nondistended. PEG tube insitu left upper quadrant. No bleeding is appreciated MUSCULOSKELETAL: Extremities without significant peripheral edema. Patient appears to be alexia the bilateral upper extremities and lower extremities NEUROLOGICAL: Currently orotracheally intubated. Positive gag and corneal reflex. Moving all 4 extremities spontaneously but not to command. Date of Insertion: Jun 07, 2017 Line: Central Venous Catheter Side: Right Location: Internal, Jugular A/P Assessment and Plan Neuro/Psych: Dementia disorder NOS Bipolar disorder Schizophrenia disorder NOS Acute toxic metabolic encephalopathy secondary hypoxia Seizure disorder NOS Hard of hearing Currently on midazolam drip at 2 mg an hour for sedation while intubated Goal of RASS -2 Daily sedation vacation Acetaminophen 650 mg by PEG every 6 hours as needed fever Currently on Depakote 250 mg by tube twice daily. Currently on mirtazapine 15 mg at night. Continue CV: Hypertension Dyslipidemia Atherosclerotic vascular disease Currently on D5 normal saline at 75 cc an hour discontinued 0600 06/09 Currently norepinephrine to maintain mean arterial pressure greater than equal to 65 Metoprolol succinate 50 mg by PEG twice daily/home medication will be held in light of bradycardia Lisinopril 5 mg daily will be held in light of hypertension Spironolactone 25 mg p.o. daily has been held Continue clopidogrel bisulfate 75 mg daily for peripheral vascular disease Continue pravastatin 10 mg p.o. daily for dyslipidemia Pravastatin placed on hold in the setting of elevated liver enzymes Resp: Acute respiratory failure secondary to left lower lobe pneumonia and mucous plugging ACV 16/500/5/30 Ventilator bundle Albuterol/ipratropium aerosols every 6 hours with albuterol aerosols every 2 hours as needed dyspnea Hypertonic saline aerosols every 6 hours for 7 days as mucolytic Guaifenesin liquid 400 mg every 8 hours Spontaneous breathing trials as tolerated Status post bronchoscopy 06/07. Please see note GI: Self removal of PEG tube Gastroesophageal reflux disease History of esophageal dilatation/dislocation Status post PEG tube placement Constipation NG tube has been placed while intubated. Okay to remove. PEG tube replaced by Dr. Baker/GI at bedside. Gastrografin confirms placement. Restarted tube feeds with Jevity 1.5 goal 55 cc/h per dietary recommendations Omeprazole 30 mg by PEG for GI prophylaxis Docusate sodium/senna 100 mg/8.6 mg 1 tablet by PEG twice daily for bowel regimen : Recurrent urinary tract infections Frederick catheter has been placed for accurate I's and O's in a critically ill patient Endo: Hypothyroidism History of thyroidectomy Novulog sliding scale insulin with Accu-Cheks every 6 hours to maintain euglycemia Currently on levothyroxine 100 mcg daily. Increase to 200 mcg daily. Recheck TSH in 1 week ordered. Noted no IV L levothyroxine available at this facility except for emergent situations. Resting instructed to provide levothyroxine in a NPO status, at least 1 hour prior to administration TSH was 88. Renal: Creatinine currently within normal limits Monitor urine output Accurate I's and O's Heme: CBC currently within normal limits Currently on enoxaparin 30 mg subcu daily for DVT prophylaxis ID: E. coli ESBL positive/Pseudomonas urinary tract infection Sacral decubitus ulcer Leukocytosis Currently on meropenem day #3. Switch from ertapenem on 06/07 Currently on fluconazole 100 mg by tube daily for thrush with nystatin swish and spit Followed by infectious disease/Dr. Mcneill Pertinent cultures 06/06 -BAL --gram-positive cocci in pairs. 06/05 -urine -Pseudomonas 06/01 -urine -ESBL positive E. coli/pseudomonas MSK: Generalized debilitation PT evaluate and treat FEN: Hypophosphatemia Replace electrolytes as clinically indicated 15 mmol sodium/IV 1 now. Recheck in a.m. Access -Utilize right IJ CVL day #3 placed 06/07 Prophylaxis -GI -omeprazole -DVT -SCD/enoxaparin Critical Care: my billing statement This patient remains critically ill with one or more organ systems which are or may become a threat to life. I have spent in excess of 33 minutes discontinuously in the care and management of this patient. This time is exclusive of procedures, and includes, but is not limited to, evaluation of the patient, review of the medical record, discussions with family, consultants, nursing staff, or respiratory therapy, and documentation in the medical record. Physician Robina Houston MD Jun 09, 2017 12:35
[2017-06-09] MEDS: VANCOMYCIN 1,000 MG/NS 250 ML IV SCH ×2 (13:12)
--- NOTE | 2017-06-09 14:18 | HHI.PR ---
Subjective Remarks She is not alert today and is intubated on a vent and now requiring BP support. Objective Vital Signs Date Time Temp Pulse Resp B/P (MAP) Pulse Ox O2 Delivery O2 Flow Rate FiO2 06/09/17 14:00 63 06/09/17 12:15 58 16 102/50 (67) 98 06/09/17 12:00 59 06/09/17 12:00 97.5 60 16 116/56 (76) 98 06/09/17 12:00 45 06/09/17 11:12 96 45 06/09/17 10:00 52 06/09/17 09:30 52 117/56 06/09/17 08:45 52 85/42 06/09/17 08:30 58 83/39 06/09/17 08:11 98 45 06/09/17 08:00 53 06/09/17 08:00 50 06/09/17 08:00 95.6 50 30 97/53 (68) 89 06/09/17 08:00 45 06/09/17 07:30 51 90/47 06/09/17 07:15 54 82/41 06/09/17 07:00 56 67/35 06/09/17 06:20 95 45 06/09/17 06:00 63 06/09/17 04:00 76 06/09/17 04:00 96.7 76 16 87/42 (57) 95 06/09/17 04:00 45 06/09/17 03:06 95 45 06/09/17 02:00 60 06/09/17 02:00 60 109/56 06/09/17 00:08 94 45 06/09/17 00:00 97.0 51 16 91/50 (64) 93 06/09/17 00:00 45 06/09/17 00:00 51 06/08/17 23:45 54 83/44 06/08/17 22:47 89 45 06/08/17 22:00 66 06/08/17 21:49 66 80/43 06/08/17 21:24 96 35 06/08/17 20:00 66 06/08/17 20:00 30 06/08/17 20:00 97.7 66 17 126/56 (79) 88 06/08/17 19:33 93 30 06/08/17 18:00 58 06/08/17 16:00 51 06/08/17 16:00 97.0 51 15 114/58 (76) 97 06/08/17 16:00 51 114/58 06/08/17 16:00 45 06/08/17 15:14 98 30 06/08/17 15:00 50 114/57 I/O 06/08/17 06/08/17 06/08/17 06/09/17 06/09/17 06/09/17 07:00 15:00 23:00 07:00 15:00 23:00 Intake Total 1650 ml 1250 ml 1394.5 ml 1148 ml Output Total 660 ml 1200 ml 650 ml Balance 990 ml 1250 ml 194.5 ml 498 ml IV Total 1350 ml 1250 ml 1394.5 ml 1027 ml Tube Feeding 121 ml Other 300 ml Output Urine Total 350 ml 1200 ml 650 ml Gastric Drainage Total 310 ml # Bowel Movements 0 Result Diagram: 06/09/17 0430 06/09/17 0430 Imaging Last Impressions Chest X-Ray 06/09/17 0600 Signed Impressions: Service Date/Time: Friday, June 09, 2017 03:56 - CONCLUSION: 1. ET tube tip convex at the right main bronchus and needs to be withdrawn 2 cm. 2. Persistent left lower lobe consolidation. Ang Booth MD Abdomen X-Ray 06/07/17 0000 Signed Impressions: Service Date/Time: Wednesday, June 07, 2017 12:57 - CONCLUSION: Contrast is noted within the stomach. Kristopher Poole MD Objective Remarks HEENT - AT/NC, ETT in place on a vent Resp - sonorous rhonci but no other adventitious sounds heard CV - No murmur or rubs heard. ABD - PEG in place and without apparent tenderness. BS are active MS - Large sacral decub noted and contractures of extremities again noted Medications and IVs Current Medications Medications (Trade) Dose Ordered Sig/Db Route Start Time Stop Time Status Last Admin (Vitamin C) 500 mg BID PEG 06/01/17 09:00 06/09/17 08:18 (Plavix) 75 mg DAILY PEG 06/01/17 09:00 06/09/17 08:18 (Lac-Hydrin 12% Lotion) 1 applic BID TOPICAL 2/24/18 09:00 06/09/17 08:36 (Prevacid Odt) 30 mg DAILY PEG 06/01/17 09:00 06/09/17 08:17 (Milk Of Magnesia Liq) 30 ml HS PRN PEG 06/01/17 06:00 (Lopressor) 50 mg BID PEG 06/01/17 09:00 Future Hold 06/07/17 20:13 (Remeron) 15 mg HS PEG 06/01/17 21:00 06/08/17 20:58 (Pravachol) 10 mg HS PEG 06/01/17 21:00 Future Hold 06/08/17 20:58 (Aldactone) 25 mg DAILY PEG 06/01/17 09:00 06/09/17 08:18 (Theragran M Tab) 1 tab DAILY PEG 06/01/17 09:00 06/09/17 08:18 (NS Flush) 2 ml UNSCH PRN IV FLUSH 06/01/17 06:00 (NS Flush) 2 ml BID IV FLUSH 06/01/17 09:00 06/09/17 08:36 (Tylenol 650 Mg/ 20 ml Liq) 650 mg Q4H PRN PEG 06/01/17 06:30 (Lovenox Inj) 30 mg Q24H SQ 06/01/17 06:00 06/09/17 05:52 (Narcan Inj) 0.4 mg UNSCH PRN IV PUSH 06/01/17 06:00 (Peggy-Colace) 1 tab BID PO 06/01/17 09:00 06/09/17 08:18 (Milk Of Magnesia Liq) 30 ml Q12H PRN PO 06/01/17 06:00 (Senokot) 17.2 mg Q12H PRN PO 06/01/17 06:00 (Dulcolax Supp) 10 mg DAILY PRN RECTAL 06/01/17 06:00 (Lactulose Liq) 30 ml DAILY PRN PO 06/01/17 06:00 (Depakote Sprinkles) 250 mg BID G-TUBE 06/01/17 21:00 06/09/17 08:18 (Diflucan) 100 mg DAILY PO 06/03/17 16:30 06/09/17 08:18 (Mycostatin Liq) 5 ml QID SWISH-SWAL 06/03/17 18:00 06/09/17 13:12 (Prinivil) 5 mg DAILY PO 06/05/17 09:00 06/06/17 09:09 (D50w (Vial) Inj) 50 ml UNSCH PRN IV PUSH 06/07/17 04:00 (Glucagon Inj) 1 mg UNSCH PRN OTHER 06/07/17 04:00 (Peridex 0.12% Liq) 15 ml BID@08,20 MT 06/07/17 20:00 06/09/17 08:00 Propofol 100 ml @ 1.89 mls/hr TITRATE PRN IV 06/07/17 11:00 Future Hold 06/07/17 14:00 Fentanyl Citrate 250 ml @ 5 mls/hr TITRATE PRN IV 06/07/17 11:15 Future Hold 06/08/17 10:35 (Duoneb Neb) 1 ampule Q6HR NEB NEB 06/07/17 16:00 06/09/17 08:09 (Albuterol Neb) 2.5 mg Q2HR NEB PRN NEB 06/07/17 11:15 (NS Flush) DAILY IV FLUSH 06/08/17 09:00 06/09/17 08:36 (NS Flush) UNSCH PRN IV FLUSH 06/07/17 12:00 (Robitussin Liq) 400 mg Q8HR PEG 06/07/17 14:00 06/09/17 13:12 (Sodium Chloride 3% Neb) 2 ml Q6HR NEB NEB 06/07/17 16:00 06/14/17 15:59 06/09/17 08:09 Meropenem 1000 mg/ Sodium Chloride 100 ml @ 200 mls/hr Q8H IV 06/07/17 15:00 06/09/17 05:52 Norepinephrine Bitartrate 4 mg/ Sodium Chloride 254 ml @ 7.62 mls/hr TITRATE PRN IV 06/07/17 20:00 06/08/17 21:49 (Synthroid) 200 mcg DAILY@0600 PEG 06/08/17 06:00 06/09/17 05:52 Miscellaneous Information Patient in critical care unit? Ass... Q361D .XX 06/07/17 21:00 06/07/17 21:00 (Chlorhexidine 2% Cloth) 3 pack DAILY@04 TOPICAL 06/08/17 04:00 06/12/17 04:01 06/09/17 03:32 (Chlorhexidine 2% Cloth) 3 pack UNSCH PRN TOPICAL 06/07/17 21:00 06/12/17 20:58 (Miguel Angel Powder) 1 pack BID G-TUBE 06/08/17 21:00 06/09/17 08:37 Pharmacy Profile Note 0 ml @ 0 mls/hr UNSCH OTHER 06/09/17 11:45 Vancomycin HCl 1000 mg/Sodium Chloride 250 ml @ 250 mls/hr Q18H IV 06/09/17 14:00 06/09/17 13:12 Miscellaneous Information SPECIFIC LAB TO BE DRAWN:va... ONCE ONCE .XX 06/11/17 19:45 06/11/17 19:46 Midazolam HCl 100 ml @ 2 mls/hr TITRATE PRN IV 06/09/17 12:30 Assessment and Plan Problem List: (1) Alzheimer disease ICD Codes: G30.9 - Alzheimer's disease, unspecified Status: Chronic Plan: Palliative care consulted to eval and discuss with family and remaining children to decide if they want to be involved or just the local son in town. (2) UTI (urinary tract infection) ICD Codes: N39.0 - Urinary tract infection, site not specified Status: Acute Plan: Antibiotics as ordered and ID (3) Sacral decubitus ulcer ICD Codes: L89.159 - Pressure ulcer of sacral region, unspecified stage Status: Acute Plan: Wound care nurse following (4) BipolarII Status: Chronic Plan: Cont meds from outpatient Assessment and Plan F/U wound care and ID recommendations. Cont antibiotics and F/U urine culture. Cont meds from SNF. Discharge Planning Home with family vs SNF Problem Qualifiers (1) Alzheimer disease: (2) UTI (urinary tract infection): Qualified Codes: T83.511A - Infection and inflammatory reaction due to indwelling urethral catheter, initial encounter; N39.0 - Urinary tract infection , site not specified (3) Sacral decubitus ulcer: Qualified Codes: L89.154 - Pressure ulcer of sacral region, stage 4 Ethan Logan Jun 09, 2017 14:18
[2017-06-09] MEDS: MIRTAZAPINE 15 MG TAB PEG SCH (22:45)
[2017-06-09] MEDS: NOREPINEPHRINE INJ 4 MG in SODIUM CHLOR 0.9% 250 ML INJ 250 ML IV PRN (22:47)
[2017-06-10] VITALS (20 sets, daily range): BP systolic 87–115; BP diastolic 43–57; PULSE 50–82; RESP 14–18; TEMP 94.3–100; O2SAT 95–99
[2017-06-10] MEDS: CHLORHEXIDINE GLUCONATE 2 % 1 PACK (2 CLOTHS)(taper/protocol) TOPICAL SCH (03:40)
[2017-06-10] MEDS: RESP: ALBUTEROL 2.5 MG/IPRATROPIUM 0.5 MG NEB (SCH) NEB ×4 (03:54→20:23)
--- NOTE | 2017-06-10 05:43 | RADRPT ---
EXAM DATE/TIME: 06/10/2017 04:12 [facility] COMPARISON: CHEST SINGLE AP, June 09, 2017, 3:56. INDICATIONS : Shortness of breath, possible pulmonary. MEDICAL HISTORY : Hypertension. Gastroesophageal reflux disease. Hiatal hernia. CVA A-fib SURGICAL HISTORY : Appendectomy. Hysterectomy. ENCOUNTER: Subsequent ACUITY: 1 week PAIN SCORE: Non-responsive. LOCATION: Bilateral chest FINDINGS: Portable AP view of the chest demonstrates a normal-sized cardiac silhouette. Endotracheal tube tip n ow measures 2.6 cm from the [place]. Right IJ central line distal tip is in the SVC. There is less aer ated lung in the left hemithorax compared to the right with persistent left basilar pleural-parenchym al opacity. No pneumothorax is visualized. The bones demonstrate no acute finding. CONCLUSION: 1. Stable left basilar opacity likely representing pleural effusion with associated volume loss and/o r airspace consolidation. 2. Endotracheal tube distal tip now measures 2.6 cm from the [place]at. Werner Moncada MD on June 10, 2017 at 5:39 Board Certified Radiologist. This report was verified electronically.
[2017-06-10] MEDS: guaiFENesin SOLUTION 200 MG/10 ML CUP PEG SCH ×3 (05:50→22:34)
[2017-06-10] MEDS: LEVOTHYROXINE SODIUM 100 MCG TAB PEG SCH (05:50)
[2017-06-10] MEDS: ENOXAPARIN SODIUM 30 MG/0.3 ML SYRINGE SQ SCH (05:50)
[2017-06-10] MEDS: MEROPENEM INJ 1,000 MG in SODIUM CHLORIDE 0.9% INJ 100 ML IV SCH ×3 (05:51→22:50)
[2017-06-10 06:27] LABS: AUTOMATED NEUTROPHIL # 7.3 TH/MM3 (1.8-7.7); BASOPHIL # 0.1 TH/MM3 (0-0.2); BASOPHIL % 0.6 % (0.0-2.0); EOSINOPHIL # 0.3 TH/MM3 (0-0.4); HEMATOCRIT 28.2 % (35.0-46.0); HEMOGLOBIN 9.5 GM/DL (11.6-15.3); LYMPH % 12.4 % (9.0-44.0); LYMPHOCYTE # 1.3 TH/MM3 (1.0-4.8); MEAN CELL VOLUME 87.6 FL (80.0-100.0); MEAN CORPUSCULAR HEMOGLOBIN 29.6 PG (27.0-34.0); MEAN CORPUSCULAR HGB CONC 33.7 % (32.0-36.0); MEAN PLATELET VOLUME 7.6 FL (7.0-11.0); MONO % 12.3 % (0.0-8.0); MONOCYTE # 1.3 TH/MM3 (0-0.9); NEUT % 71.7 % (16.0-70.0); PLATELET COUNT 328 TH/MM3 (150-450); RED BLOOD COUNT 3.22 MIL/MM3 (4.00-5.30); RED CELL DISTRIBUTION WIDTH 18.5 % (11.6-17.2); WHITE BLOOD COUNT 10.2 TH/MM3 (4.0-11.0)
[2017-06-10 06:54] LABS: ALBUMIN 1.7 GM/DL (3.4-5.0); AST (GOT) 69 U/L (15-37); BICARBONATE 23.4 MEQ/L (21.0-32.0); BLOOD UREA NITROGEN 8 MG/DL (7-18); CALCIUM 8.3 MG/DL (8.5-10.1); CHLORIDE 112 MEQ/L (98-107); CREATININE 0.44 MG/DL (0.50-1.00); GLOMERULAR FILTRATION RATE 136 ML/MIN (>89); GLUCOSE,RANDOM 96 MG/DL (74-106); MAGNESIUM 2.2 MG/DL (1.5-2.5); SODIUM (NA) 142 MEQ/L (136-145)
[2017-06-10 06:58] LABS: ALKALINE PHOSPHATASE 328 U/L (45-117); ALT (GPT) 88 U/L (10-53); DIRECT BILIRUBIN ADULT 0.2 MG/DL (0.0-0.2); PHOSPHORUS 2.4 MG/DL (2.5-4.9); TOTAL BILIRUBIN ADULT 0.3 MG/DL (0.2-1.0); TOTAL PROTEIN 5.5 GM/DL (6.4-8.2)
[2017-06-10] MEDS: CHLORHEXIDINE 0.12% (ORAL KIT) 15 ML CUP MT SCH ×2 (08:00→20:00)
[2017-06-10] MEDS: VANCOMYCIN 1,000 MG/NS 250 ML IV SCH ×2 (08:31)
[2017-06-10] MEDS: DIVALPROEX SODIUM SPRINKLES 125 MG CAP G-TUBE SCH ×2 (08:35→20:58)
[2017-06-10] MEDS: JUVEN POWDER 1 PACK G-TUBE SCH ×2 (08:35→21:00)
[2017-06-10] MEDS: CLOPIDOGREL 75 MG TAB PEG SCH (08:36)
[2017-06-10] MEDS: MULTIVITAMINS/MINERALS THERAPEUTIC TAB PEG SCH (08:36)
[2017-06-10] MEDS: SODIUM CHLORIDE 0.9% FLUSH 10 ML FLUSH IV FLUSH SCH ×3 (08:36→20:59)
[2017-06-10] MEDS: LANSOPRAZOLE SOLUTAB 30 MG TAB PEG SCH (08:36)
[2017-06-10] MEDS: LACTIC ACID (AMMONIUM LACTATE) 12% LOTION 225 GM BTL TOPICAL SCH ×2 (08:37→20:58)
[2017-06-10] MEDS: ASCORBIC ACID 500 MG TAB PEG SCH ×2 (08:37→20:57)
[2017-06-10] MEDS: DOCUSATE SODIUM 50 MG/SENNA 8.6 MG TAB PO SCH ×2 (08:37→20:58)
[2017-06-10] MEDS: NYSTATIN SUSP 500,000 U/5 ML CUP SWISH-SWAL SCH ×4 (08:37→22:34)
[2017-06-10] MEDS: FLUCONAZOLE 100 MG TAB PO SCH (08:37)
[2017-06-10] MEDS: LISINOPRIL 5 MG TAB PO SCH (09:00)
[2017-06-10] MEDS: RESP: SODIUM CHLORIDE 3% 4 ML NEB NEB SCH ×3 (09:04→20:23)
[2017-06-10] MEDS: SPIRONOLACTONE 25 MG TAB PEG SCH (10:03)
--- NOTE | 2017-06-10 10:55 | HHI.CCPN ---
Subjective Remarks/Hospital Course This is an 86-year-old female. Date of admission 06/01/2017. Date of consultation 06/07/2017. 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 She was diagnosed with a urinary tract infection.. She had a stage IV sacral decubitus ulcer 11 x 7 cm in wound care with infectious disease was consulted to evaluate that aspect of her care. Patient was treated with ertapenem form BSL positive E. coli urinary tract infection/Pseudomonas UTI and stage IV sacral decubitus ulcer. Last night, patient became confused and pulled out her PEG tube. This morning she had an acute decline in respiratory status including hypoxia and hypercapnia. Chest x- ray revealed left lower lobe infiltrate versus mucous plugging. A rapid response team was called the patient was transferred on 522. Upon my arrival, patient was tachypneic with saturations in the low 80s. Patient was emergently intubated/fiberoptic bronchoscopy was performed emergently as able to to contact son and central line placed due to extremely poor IV access. Subjective 3/4: Afebrile. FiO2 to 30%. We will wean PEEP to 5. Oxygenating much better at the present time. Arousable on the ventilator. Sticks out her tongue. 3: He is on Levophed currently at 6 Mr./min, patient decreased significantly currently on Versed 3 mg/hour. LFTs notably significantly elevated today pravastatin placed on hold. Leukocytosis resolving. 06/10:Afebrile. FIO2 .40%, PEEP 8 . Continues to require vasopressor support. Objective Vital Signs Date Time Temp Pulse Resp B/P (MAP) Pulse Ox O2 Delivery O2 Flow Rate FiO2 06/10/17 07:52 99 35 06/10/17 06:00 70 06/10/17 04:00 98.1 16 108/57 (74) 06/08/17 07:00 Mechanical Ventilator 06/07/17 09:03 15.00 Intake and Output 06/10/17 06/10/17 06/11/17 08:00 16:00 00:00 Intake Total 666 ml Output Total 800 ml Balance -134 ml Result Diagram: 06/10/17 0600 06/10/17 0600 Other Results Microbiology Date/Time Source Procedure Growth Status 06/07/17 11:30 Bronchial Washings Left Lower Lobe Gram Stain - Final Complete 06/07/17 11:30 Bronchial Washings Left Lower Lobe Bronchial Culture - Final MODERATE GROWTH NORMAL RESPIRATORY ALLA Complete Laboratory Tests Test 06/10/17 05:29 06/10/17 07:32 Blood Gas Puncture Site RT RADIAL LT RADIAL Blood Gas Patient Temperature 98.6 98.6 Blood Gas HCO3 20 mmol/L (22-26) 21 mmol/L (22-26) Blood Gas Base Excess -2.4 mmol/L (-2-2) -2.7 mmol/L (-2-2) Blood Gas Oxygen Saturation 97 % (90-100) 96 % (90-100) Arterial Blood pH 7.56 (7.380-7.420) 7.44 (7.380-7.420) Arterial Blood Partial Pressure CO2 22 mmHg (38-42) 31 mmHg (38-42) Arterial Blood Partial Pressure O2 105 mmHg (61-120) 123 mmHg (61-120) Arterial Blood Oxygen Content 13.2 Vol % (12.0-20.0) 12.9 Vol % (12.0-20.0) Arterial Blood Carboxyhemoglobin 1.1 % (0-4) 1.0 % (0-4) Arterial Blood Methemoglobin 0.9 % (0-2) 1.0 % (0-2) Blood Gas Hemoglobin 9.6 G/DL (12.0-16.0) 9.4 G/DL (12.0-16.0) Oxygen Delivery Device VENTILATOR VENTILATOR Blood Gas Ventilator Setting AC16/600/5PEEP AC/RR14/VT500/PEEP8 Blood Gas Inspired Oxygen 35 % 35 % Imaging Last Impressions Chest X-Ray 06/10/17 0600 Signed Impressions: Service Date/Time: Saturday, June 10, 2017 04:12 - CONCLUSION: 1. Stable left basilar opacity likely representing pleural effusion with associated volume loss and/or airspace consolidation. 2. Endotracheal tube distal tip now measures 2.6 cm from the montserrat. Werner Moncada MD Abdomen X-Ray 06/07/17 0000 Signed Impressions: Service Date/Time: Wednesday, June 07, 2017 12:57 - CONCLUSION: Contrast is noted within the stomach. Kristopher Poole MD Last Impressions Chest X-Ray 06/09/17 0600 Signed Impressions: Service Date/Time: Friday, June 09, 2017 03:56 - CONCLUSION: 1. ET tube tip convex at the right main bronchus and needs to be withdrawn 2 cm. 2. Persistent left lower lobe consolidation. Ang Booth MD Abdomen X-Ray 06/07/17 0000 Signed Impressions: Service Date/Time: Wednesday, June 07, 2017 12:57 - CONCLUSION: Contrast is noted within the stomach. Kristopher Poole MD Last Impressions Chest X-Ray 06/07/17 1157 Signed Impressions: Service Date/Time: Wednesday, June 07, 2017 12:24 - CONCLUSION: Line in good position. Consolidative changes left base.. Celestine Ritter MD FACR Abdomen X-Ray 06/07/17 0000 Signed Impressions: Service Date/Time: Wednesday, June 07, 2017 12:57 - CONCLUSION: Contrast is noted within the stomach. Kristopher Poole MD Objective Remarks GENERAL: 86-year-old female currently orotracheally intubated, spontaneous eye opening SKIN: Warm and dry. Stage IV sacral decubitus ulcer 11 x 7 cm, 2 lateral foot 2 x 1 cm stage II ulcers HEAD: Atraumatic. Normocephalic. EYES: Pupils equal and round about 3 mm bilaterally and reactive. No scleral icterus. No injection or drainage. ENT: No nasal bleeding or discharge. Mucous membranes pink and moist. NECK: Trachea midline. No JVD. CARDIOVASCULAR: Regular rate and rhythm. S1, S2. No S4. RESPIRATORY: Diminished breath sounds involving the left lower lobe. No wheezing. GASTROINTESTINAL: Abdomen soft, non-tender, nondistended. PEG tube insitu left upper quadrant. No bleeding is appreciated MUSCULOSKELETAL: Extremities without significant peripheral edema. Patient appears to be alexia the bilateral upper extremities and lower extremities NEUROLOGICAL: Currently orotracheally intubated. Positive gag and corneal reflex. Moving all 4 extremities spontaneously but not to command. Date of Insertion: Jun 07, 2017 Line: Central Venous Catheter Side: Right Location: Internal, Jugular A/P Assessment and Plan Neuro/Psych: Dementia disorder NOS Bipolar disorder Schizophrenia disorder NOS Acute toxic metabolic encephalopathy secondary hypoxia Seizure disorder NOS Hard of hearing Currently on midazolam drip at 2 mg an hour for sedation while intubated Goal of RASS -2 Daily sedation vacation Acetaminophen 650 mg by PEG every 6 hours as needed fever Currently on Depakote 250 mg by tube twice daily. Currently on mirtazapine 15 mg at night. Continue CV: Hypertension Dyslipidemia Atherosclerotic vascular disease Currently on D5 normal saline at 75 cc an hour discontinued 0600 06/09 Currently norepinephrine to maintain mean arterial pressure greater than equal to 65 Metoprolol succinate 50 mg by PEG twice daily/home medication will be held in light of bradycardia Lisinopril 5 mg daily will be held in light of hypertension Spironolactone 25 mg p.o. daily has been held Continue clopidogrel bisulfate 75 mg daily for peripheral vascular disease Continue pravastatin 10 mg p.o. daily for dyslipidemia Pravastatin placed on hold in the setting of elevated liver enzymes Resp: Acute respiratory failure secondary to left lower lobe pneumonia and mucous plugging ACV 16/500/8/30 Ventilator bundle Albuterol/ipratropium aerosols every 6 hours with albuterol aerosols every 2 hours as needed dyspnea Hypertonic saline aerosols every 6 hours for 7 days as mucolytic Guaifenesin liquid 400 mg every 8 hours Spontaneous breathing trials as tolerated Status post bronchoscopy 06/07. Please see note GI: Self removal of PEG tube Gastroesophageal reflux disease History of esophageal dilatation/dislocation Status post PEG tube placement Constipation NG tube has been placed while intubated. Okay to remove. PEG tube replaced by Dr. Baker/GI at bedside. Gastrografin confirms placement. Restarted tube feeds with Jevity 1.5 goal 55 cc/h per dietary recommendations Omeprazole 30 mg by PEG for GI prophylaxis Docusate sodium/senna 100 mg/8.6 mg 1 tablet by PEG twice daily for bowel regimen : Recurrent urinary tract infections Frederick catheter has been placed for accurate I's and O's in a critically ill patient Endo: Hypothyroidism History of thyroidectomy Novulog sliding scale insulin with Accu-Cheks every 6 hours to maintain euglycemia Currently on levothyroxine 100 mcg daily. Increase to 200 mcg daily. Recheck TSH in 1 week ordered. Noted no IV L levothyroxine available at this facility except for emergent situations. Resting instructed to provide levothyroxine in a NPO status, at least 1 hour prior to administration TSH was 88. Renal: Creatinine currently within normal limits Monitor urine output Accurate I's and O's Heme: CBC currently within normal limits Currently on enoxaparin 30 mg subcu daily for DVT prophylaxis ID: E. coli ESBL positive/Pseudomonas urinary tract infection Sacral decubitus ulcer Leukocytosis Currently on meropenem day #4. Switch from ertapenem on 06/07 Currently on fluconazole 100 mg by tube daily for thrush with nystatin swish and spit Followed by infectious disease/Dr. Mcneill Pertinent cultures 06/06 -BAL --gram-positive cocci in pairs. 06/05 -urine -Pseudomonas 06/01 -urine -ESBL positive E. coli/pseudomonas MSK: Generalized debilitation PT evaluate and treat FEN: Hypophosphatemia Replace electrolytes as clinically indicated 15 mmol sodium/IV 1 now. Recheck in a.m. Access -Utilize right IJ CVL day #4 placed 06/07 Prophylaxis -GI -omeprazole -DVT -SCD/enoxaparin Critical Care: my billing statement This patient remains critically ill with one or more organ systems which are or may become a threat to life. I have spent in excess of 30 minutes discontinuously in the care and management of this patient. This time is exclusive of procedures, and includes, but is not limited to, evaluation of the patient, review of the medical record, discussions with family, consultants, nursing staff, or respiratory therapy, and documentation in the medical record. Physician Robina Houston MD Jun 10, 2017 10:55
--- NOTE | 2017-06-10 12:17 | HHI.IDPN ---
Note Infectious Disease Note Weekend events noted. Patient was transferred to [facility] because of respiratory distress. Remains intubated on the ventilator. On 2 mcg of Levophed. She was previously on 6 mcg. Blood pressure noted to be decreased when the Levophed is weaned. Noted to have thick mucous plug in the right lower lobe. Afebrile. Repeat urine culture has less than 25,000 colonies of gram-negative braulio. The Frederick catheter has clear urine. 86-year-old white female who was [facility]. The patient apparently had respiratory symptoms with coughing. She has been on IV antibiotics for possible pneumonia. She also is noted to have a decubitus sacral ulceration. She has an indwelling Frederick catheter. The patient is severely demented. PAST MEDICAL HISTORY 1. Urinary tract infection 2. Hypothyroidism, 3. Dementia, 4. Bipolar disorder, 5. Schizophrenia 6. PEG placement 7. Total abdominal hysterectomy. ALLERGIES SULFA ASPIRIN CELECOXIB HALOPERIDOL RESPERIDONE CHLORPROMAZINE. ANTIBIOTICS: Meropenem. Vancomycin. OBJECTIVE: Vital Signs Date Time Temp Pulse Resp B/P (MAP) Pulse Ox O2 Delivery O2 Flow Rate FiO2 06/10/17 11:47 99 35 06/10/17 10:00 53 06/10/17 08:00 97.6 70 18 101/51 (68) 98 06/10/17 08:00 35 06/10/17 08:00 70 06/10/17 07:52 99 35 06/10/17 06:00 70 06/10/17 05:50 98 35 06/10/17 04:00 45 06/10/17 04:00 77 06/10/17 04:00 98.1 77 16 108/57 (74) 99 06/10/17 03:53 98 35 06/10/17 02:00 75 06/10/17 00:40 96 35 06/10/17 00:00 82 06/10/17 00:00 98.2 82 16 115/55 (75) 95 06/10/17 00:00 45 06/09/17 22:47 85 118/62 06/09/17 22:00 73 06/09/17 21:56 98 35 06/09/17 20:00 45 06/09/17 20:00 97.9 73 16 127/60 (82) 97 06/09/17 20:00 73 06/09/17 19:59 98 35 06/09/17 18:00 63 06/09/17 18:00 62 102/50 06/09/17 16:00 61 06/09/17 16:00 98.4 61 16 115/53 (73) 95 06/09/17 16:00 45 06/09/17 14:15 98 35 06/09/17 14:00 63 06/09/17 12:15 58 16 102/50 (67) 98 Laboratory Tests Test 06/09/17 04:30 06/10/17 06:00 White Blood Count 11.6 TH/MM3 10.2 TH/MM3 Red Blood Count 3.39 MIL/MM3 3.22 MIL/MM3 Hemoglobin 9.7 GM/DL 9.5 GM/DL Hematocrit 30.1 % 28.2 % Mean Corpuscular Volume 88.8 FL 87.6 FL Mean Corpuscular Hemoglobin 28.7 PG 29.6 PG Mean Corpuscular Hemoglobin Concent 32.3 % 33.7 % Red Cell Distribution Width 18.7 % 18.5 % Platelet Count 339 TH/MM3 328 TH/MM3 Mean Platelet Volume 8.0 FL 7.6 FL Neutrophils (%) (Auto) 76.7 % 71.7 % Lymphocytes (%) (Auto) 10.3 % 12.4 % Monocytes (%) (Auto) 10.9 % 12.3 % Eosinophils (%) (Auto) 1.5 % 3.0 % Basophils (%) (Auto) 0.6 % 0.6 % Neutrophils # (Auto) 8.9 TH/MM3 7.3 TH/MM3 Lymphocytes # (Auto) 1.2 TH/MM3 1.3 TH/MM3 Monocytes # (Auto) 1.3 TH/MM3 1.3 TH/MM3 Eosinophils # (Auto) 0.2 TH/MM3 0.3 TH/MM3 Basophils # (Auto) 0.1 TH/MM3 0.1 TH/MM3 CBC Comment DIFF FINAL DIFF FINAL Differential Comment Laboratory Tests Test 06/09/17 04:30 06/10/17 06:00 Blood Urea Nitrogen 9 MG/DL 8 MG/DL Creatinine 0.48 MG/DL 0.44 MG/DL Random Glucose 109 MG/DL 96 MG/DL Total Protein 5.4 GM/DL 5.5 GM/DL Albumin 1.8 GM/DL 1.7 GM/DL Calcium Level 8.2 MG/DL 8.3 MG/DL Phosphorus Level 2.3 MG/DL 2.4 MG/DL Magnesium Level 2.1 MG/DL 2.2 MG/DL Alkaline Phosphatase 425 U/L 328 U/L Aspartate Amino Transf (AST/SGOT) 220 U/L 69 U/L Alanine Aminotransferase (ALT/SGPT) 151 U/L 88 U/L Total Bilirubin 0.7 MG/DL 0.3 MG/DL Sodium Level 144 MEQ/L 142 MEQ/L Potassium Level 3.8 MEQ/L 4.0 MEQ/L Chloride Level 113 MEQ/L 112 MEQ/L Carbon Dioxide Level 22.7 MEQ/L 23.4 MEQ/L Anion Gap 8 MEQ/L 7 MEQ/L Estimat Glomerular Filtration Rate 123 ML/MIN 136 ML/MIN Free Thyroxine 0.92 NG/DL Free Triiodothyronine (T3) pg/dL LESS THAN 0.50 PG/ML Direct Bilirubin 0.2 MG/DL Microbiology Date/Time Source Procedure Growth Status 06/09/17 14:25 Blood Peripheral Aerobic Blood Culture - Preliminary NO GROWTH IN 1 DAY Resulted 06/09/17 14:25 Blood Peripheral Anaerobic Blood Culture - Preliminary NO GROWTH IN 1 DAY Resulted 06/09/17 11:45 Blood Line Aerobic Blood Culture - Preliminary NO GROWTH IN 1 DAY Resulted 06/09/17 11:45 Blood Line Anaerobic Blood Culture - Preliminary NO GROWTH IN 1 DAY Resulted IMAGING: Chest X-Ray 06/10/17 0600 Signed Impressions: Service Date/Time: Saturday, June 10, 2017 04:12 - CONCLUSION: 1. Stable left basilar opacity likely representing pleural effusion with associated volume loss and/or airspace consolidation. 2. Endotracheal tube distal tip now measures 2.6 cm from the [place]. Werner Moncada MD Abdomen X-Ray 06/07/17 0000 Signed Impressions: Service Date/Time: Wednesday, June 07, 2017 12:57 - CONCLUSION: Contrast is noted within the stomach. Kristopher Poole MD PHYSICAL EXAMINATION GENERAL: Sedated. On the ventilator. HEENT: Head is atraumatic. Extraocular movements are grossly intact, pupils reactive to light. No icterus. Oropharynx moist mucosa. NECK: Supple. LUNGS: Decreased breath sounds. HEART: Regular S1 and S2. No audible murmur. ABDOMEN: Bowel sounds present, soft. EXTREMITIES: No clubbing or cyanosis, no edema. Contractures of the lower extremities. NEUROLOGIC: Unable to assess. PSYCHIATRIC: Unable to assess. IMPRESSION 1. Acute respiratory failure. Right lower lobe infiltrate from mucous plugging. Probable aspiration pneumonia. HCP. 2. Urinary tract infection due to ESBL E-coli. 3. Severe dementia. RECOMMENDATIONS 1. Continue meropenem for pulmonary coverage 2. Continue vancomycin. 3. Follow the blood culture. 4. Monitor this [facility] culture. 5. Monitor clinical status. Stevenson Mcneill MD Jun 10, 2017 12:17
--- NOTE | 2017-06-10 13:36 | HHI.PR ---
Subjective Remarks No apparent distress remains on Vent and BP support, Objective Vital Signs Date Time Temp Pulse Resp B/P (MAP) Pulse Ox O2 Delivery O2 Flow Rate FiO2 06/10/17 12:00 94.3 54 18 87/43 (58) 98 06/10/17 12:00 35 06/10/17 12:00 50 06/10/17 11:47 99 35 06/10/17 10:00 53 06/10/17 08:00 97.6 70 18 101/51 (68) 98 06/10/17 08:00 35 06/10/17 08:00 70 06/10/17 07:52 99 35 06/10/17 06:00 70 06/10/17 05:50 98 35 06/10/17 04:00 45 06/10/17 04:00 77 06/10/17 04:00 98.1 77 16 108/57 (74) 99 06/10/17 03:53 98 35 06/10/17 02:00 75 06/10/17 00:40 96 35 06/10/17 00:00 82 06/10/17 00:00 98.2 82 16 115/55 (75) 95 06/10/17 00:00 45 06/09/17 22:47 85 118/62 06/09/17 22:00 73 06/09/17 21:56 98 35 06/09/17 20:00 45 06/09/17 20:00 97.9 73 16 127/60 (82) 97 06/09/17 20:00 73 06/09/17 19:59 98 35 06/09/17 18:00 63 06/09/17 18:00 62 102/50 06/09/17 16:00 61 06/09/17 16:00 98.4 61 16 115/53 (73) 95 06/09/17 16:00 45 06/09/17 14:15 98 35 06/09/17 14:00 63 I/O 06/09/17 06/09/17 06/09/17 06/10/17 06/10/17 06/10/17 07:00 15:00 23:00 07:00 15:00 23:00 Intake Total 1148 ml 350 ml 751 ml 766 ml 250 ml Output Total 650 ml 750 ml 800 ml Balance 498 ml 350 ml 1 ml -34 ml 250 ml IV Total 1027 ml 350 ml 437 ml 300 ml 250 ml Tube Feeding 121 ml 314 ml 466 ml Output Urine Total 650 ml 750 ml 800 ml Result Diagram: 06/10/1759906/10/17599 Imaging Last 72 hours Impressions Chest X-Ray 06/10/17599 Signed Impressions: Service Date/Time: Saturday, June 10, 2017 04:12 - CONCLUSION: 1. Stable left basilar opacity likely representing pleural effusion with associated volume loss and/or airspace consolidation. 2. Endotracheal tube distal tip now measures 2.6 cm from the mont[place]err[place]. Werner Moncada MD Chest X-Ray 06/09/17599 Signed Impressions: Service Date/Time: Friday, June 09, 2017 03:56 - CONCLUSION: 1. ET tube tip convex at the right main bronchus and needs to be withdrawn 2 cm. 2. Persistent left lower lobe consolidation. Ang Booth MD Other Results ABG Test 06/10/17 05:29 06/10/17 07:32 Arterial Blood Carboxyhemoglobin 1.1 % 1.0 % Arterial Blood Methemoglobin 0.9 % 1.0 % Arterial Blood Oxygen Content 13.2 Vol % 12.9 Vol % Arterial Blood Partial Pressure CO2 22 mmHg *L 31 mmHg L Arterial Blood Partial Pressure O2 105 mmHg 123 mmHg H Arterial Blood pH 7.56 *H 7.44 H Blood Gas Base Excess -2.4 mmol/L L -2.7 mmol/L L Blood Gas HCO3 20 mmol/L L 21 mmol/L L Blood Gas Hemoglobin 9.6 G/DL L 9.4 G/DL L Blood Gas Inspired Oxygen 35 % 35 % Blood Gas Oxygen Saturation 97 % 96 % Blood Gas Ventilator Setting AC16/600/5PEEP AC/RR14/VT500/PEEP8 Oxygen Delivery Device VENTILATOR VENTILATOR Objective Remarks Objective Remarks HEENT - AT/NC, ETT in place on a vent Resp - Rhonchi, ventilation support CV - RRR GI-PEG in place and without apparent tenderness. BS are active MS - contractures of extremities again noted Medications and IVs Current Medications Medications (Trade) Dose Ordered Sig/Db Route Start Time Stop Time Status Last Admin (Vitamin C) 500 mg BID PEG 06/01/17 09:00 06/10/17 08:37 (Plavix) 75 mg DAILY PEG 06/01/17 09:00 06/10/17 08:36 (Lac-Hydrin 12% Lotion) 1 applic BID TOPICAL 06/01/17 09:00 06/10/17 08:37 (Prevacid Odt) 30 mg DAILY PEG 06/01/17 09:00 06/10/17 08:36 (Milk Of Magnesia Liq) 30 ml HS PRN PEG 06/01/17 06:00 (Lopressor) 50 mg BID PEG 06/01/17 09:00 Future Hold 06/07/17 20:13 (Remeron) 15 mg HS PEG 06/01/17 21:00 06/09/17 22:45 (Pravachol) 10 mg HS PEG 06/01/17 21:00 Future Hold 06/08/17 20:58 (Aldactone) 25 mg DAILY PEG 06/01/17 09:00 06/10/17 10:03 (Theragran M Tab) 1 tab DAILY PEG 06/01/17 09:00 06/10/17 08:36 (NS Flush) 2 ml UNSCH PRN IV FLUSH 06/01/17 06:00 (NS Flush) 2 ml BID IV FLUSH 06/01/17 09:00 06/10/17 08:36 (Tylenol 650 Mg/ 20 ml Liq) 650 mg Q4H PRN PEG 06/01/17 06:30 (Lovenox Inj) 30 mg Q24H SQ 06/01/17 06:00 06/10/17 05:50 (Narcan Inj) 0.4 mg UNSCH PRN IV PUSH 06/01/17 06:00 (Peggy-Colace) 1 tab BID PO 06/01/17 09:00 06/10/17 08:37 (Milk Of Magnesia Liq) 30 ml Q12H PRN PO 06/01/17 06:00 (Senokot) 17.2 mg Q12H PRN PO 06/01/17 06:00 (Dulcolax Supp) 10 mg DAILY PRN RECTAL 06/01/17 06:00 (Lactulose Liq) 30 ml DAILY PRN PO 06/01/17 06:00 (Depakote Sprinkles) 250 mg BID G-TUBE 06/01/17 21:00 06/10/17 08:35 (Diflucan) 100 mg DAILY PO 06/03/17 16:30 06/10/17 08:37 (Mycostatin Liq) 5 ml QID SWISH-SWAL 06/03/17 18:00 06/10/17 08:37 (Prinivil) 5 mg DAILY PO 06/05/17 09:00 06/06/17 09:09 (D50w (Vial) Inj) 50 ml UNSCH PRN IV PUSH 06/07/17 04:00 (Glucagon Inj) 1 mg UNSCH PRN OTHER 06/07/17 04:00 (Peridex 0.12% Liq) 15 ml BID@08,20 MT 06/07/17 20:00 06/10/17 08:00 Propofol 100 ml @ 1.89 mls/hr TITRATE PRN IV 06/07/17 11:00 Future Hold 06/07/17 14:00 Fentanyl Citrate 250 ml @ 5 mls/hr TITRATE PRN IV 06/07/17 11:15 Future Hold 06/08/17 10:35 (Duoneb Neb) 1 ampule Q6HR NEB NEB 06/07/17 16:00 06/10/17 09:04 (Albuterol Neb) 2.5 mg Q2HR NEB PRN NEB 06/07/17 11:15 (NS Flush) DAILY IV FLUSH 06/08/17 09:00 06/10/17 08:36 (NS Flush) UNSCH PRN IV FLUSH 06/07/17 12:00 (Robitussin Liq) 400 mg Q8HR PEG 06/07/17 14:00 06/10/17 05:50 (Sodium Chloride 3% Neb) 2 ml Q6HR NEB NEB 06/07/17 16:00 06/14/17 15:59 06/10/17 09:04 Meropenem 1000 mg/ Sodium Chloride 100 ml @ 200 mls/hr Q8H IV 06/07/17 15:00 06/10/17 05:51 Norepinephrine Bitartrate 4 mg/ Sodium Chloride 254 ml @ 7.62 mls/hr TITRATE PRN IV 06/07/17 20:00 06/09/17 22:47 (Synthroid) 200 mcg DAILY@0600 PEG 06/08/17 06:00 06/10/17 05:50 Miscellaneous Information Patient in critical care unit? Ass... [id number] .XX 06/07/17 21:00 06/07/17 21:00 (Chlorhexidine 2% Cloth) 3 pack DAILY@04 TOPICAL 06/08/17 04:00 06/12/17 04:01 06/10/17 03:40 (Chlorhexidine 2% Cloth) 3 pack UNSCH PRN TOPICAL 06/07/17 21:00 06/12/17 20:58 (Miguel Angel Powder) 1 pack BID G-TUBE 06/08/17 21:00 06/10/17 08:35 Pharmacy Profile Note 0 ml @ 0 mls/hr UNSCH OTHER 06/09/17 11:45 Vancomycin HCl 1000 mg/Sodium Chloride 250 ml @ 250 mls/hr Q18H IV 06/09/17 14:00 06/10/17 08:31 Miscellaneous Information SPECIFIC LAB TO BE DRAWN:va... ONCE ONCE .XX 06/11/17 19:45 06/11/17 19:46 Midazolam HCl 100 ml @ 2 mls/hr TITRATE PRN IV 06/09/17 12:30 06/10/17 00:31 Assessment and Plan Problem List: (1) Respiratory failure ICD Codes: J96.90 - Respiratory failure, unspecified, unspecified whether with hypoxia or hypercapnia Plan: Remains on Mechanical ventilation Chief Operating Officer following Palliative care consult (2) ESBL (extended spectrum beta-lactamase) producing bacteria infection ICD Codes: A49.9 - Bacterial infection, unspecified; Z16.12 - Extended spectrum beta lactamase (ESBL) resistance Plan: Infectious disease on case, follow recommendations (3) Sacral decubitus ulcer ICD Codes: L89.159 - Pressure ulcer of sacral region, unspecified stage Status: Acute Plan: wound care Following, order for calcium alginate q3 days r/t patient cooperation Assessment and Plan Palliative care following. Apparently there are 4 siblings, unable to get together to make a decision. Problem Qualifiers (1) Sacral decubitus ulcer: Qualified Codes: L89.154 - Pressure ulcer of sacral region, stage 4 Joyce Smith Jun 10, 2017 13:36
[2017-06-10] MEDS: NOREPINEPHRINE INJ 4 MG in SODIUM CHLOR 0.9% 250 ML INJ 250 ML IV PRN (18:22)
[2017-06-10] MEDS: MIRTAZAPINE 15 MG TAB PEG SCH (20:58)
[2017-06-11] VITALS (20 sets, daily range): BP systolic 104–121; BP diastolic 49–58; PULSE 67–92; RESP 14–31; TEMP 97.4–98.7; O2SAT 96–100
[2017-06-11] MEDS: VANCOMYCIN 1,000 MG/NS 250 ML IV SCH ×4 (01:44→20:22)
[2017-06-11] MEDS: RESP: ALBUTEROL 2.5 MG/IPRATROPIUM 0.5 MG NEB (SCH) NEB ×2 (03:28→10:22)
[2017-06-11] MEDS: RESP: SODIUM CHLORIDE 3% 4 ML NEB NEB SCH ×4 (03:28→20:30)
[2017-06-11] MEDS: CHLORHEXIDINE GLUCONATE 2 % 1 PACK (2 CLOTHS)(taper/protocol) TOPICAL SCH (04:00)
[2017-06-11 04:52] LABS: ALBUMIN 1.6 GM/DL (3.4-5.0); ALT (GPT) 62 U/L (10-53); AST (GOT) 33 U/L (15-37); BICARBONATE 24.4 MEQ/L (21.0-32.0); BLOOD UREA NITROGEN 15 MG/DL (7-18); CALCIUM 8.4 MG/DL (8.5-10.1); CHLORIDE 113 MEQ/L (98-107); GLUCOSE,RANDOM 134 MG/DL (74-106); SODIUM (NA) 142 MEQ/L (136-145)
[2017-06-11 04:53] LABS: AUTOMATED NEUTROPHIL # 9.3 TH/MM3 (1.8-7.7); BASOPHIL # 0.1 TH/MM3 (0-0.2); BASOPHIL % 0.6 % (0.0-2.0); EOSINOPHIL # 0.3 TH/MM3 (0-0.4); HEMATOCRIT 27.7 % (35.0-46.0); HEMOGLOBIN 9.1 GM/DL (11.6-15.3); LYMPH % 11.6 % (9.0-44.0); LYMPHOCYTE # 1.5 TH/MM3 (1.0-4.8); MEAN CORPUSCULAR HEMOGLOBIN 29.2 PG (27.0-34.0); MEAN CORPUSCULAR HGB CONC 32.9 % (32.0-36.0); MONO % 12.4 % (0.0-8.0); MONOCYTE # 1.6 TH/MM3 (0-0.9); NEUT % 73.4 % (16.0-70.0); PLATELET COUNT 313 TH/MM3 (150-450); RED BLOOD COUNT 3.12 MIL/MM3 (4.00-5.30); RED CELL DISTRIBUTION WIDTH 18.7 % (11.6-17.2); WHITE BLOOD COUNT 12.6 TH/MM3 (4.0-11.0)
[2017-06-11 04:54] LABS: ALKALINE PHOSPHATASE 283 U/L (45-117); CREATININE 0.46 MG/DL (0.50-1.00); GLOMERULAR FILTRATION RATE 129 ML/MIN (>89); TOTAL BILIRUBIN ADULT 0.3 MG/DL (0.2-1.0); TOTAL PROTEIN 5.6 GM/DL (6.4-8.2)
[2017-06-11] MEDS: guaiFENesin SOLUTION 200 MG/10 ML CUP PEG SCH ×3 (06:20→20:41)
[2017-06-11] MEDS: ENOXAPARIN SODIUM 30 MG/0.3 ML SYRINGE SQ SCH (06:21)
[2017-06-11] MEDS: LEVOTHYROXINE SODIUM 100 MCG TAB PEG SCH (06:21)
[2017-06-11] MEDS: MEROPENEM INJ 1,000 MG in SODIUM CHLORIDE 0.9% INJ 100 ML IV SCH ×2 (06:21→16:12)
--- NOTE | 2017-06-11 06:23 | RADRPT ---
EXAM DATE/TIME: 06/11/2017 05:07 [place] COMPARISON: CHEST SINGLE AP, June 10, 2017, 4:12. INDICATIONS : Short of breath. MEDICAL HISTORY : Hypertension. Gastroesophageal reflux disease. Hiatal hernia. CVA A-fib SURGICAL HISTORY : Appendectomy. Hysterectomy. ENCOUNTER: Subsequent ACUITY: 2 weeks PAIN SCORE: 0/10 LOCATION: Bilateral chest FINDINGS: Rotated and underinflated AP view of the chest demonstrates a normal-sized cardiac silhouette. ETT an d right IJ line remain present. Multiple EKG lines overlie the patient. There are is mild bibasilar o pacity. No pleural effusion or pneumothorax is seen. Patient's chin partially obscures the right apex . CONCLUSION: Mild bibasilar opacity most likely representing atelectasis. Otherwise, no acute finding is appreciat ed given the technique. Werner Moncada MD on June 11, 2017 at 6:20 Board Certified Radiologist. This report was verified electronically.
[2017-06-11] MEDS: CHLORHEXIDINE 0.12% (ORAL KIT) 15 ML CUP MT SCH ×2 (08:00→20:23)
[2017-06-11] MEDS: SPIRONOLACTONE 25 MG TAB PEG SCH (08:21)
[2017-06-11] MEDS: MULTIVITAMINS/MINERALS THERAPEUTIC TAB PEG SCH (08:21)
[2017-06-11] MEDS: JUVEN POWDER 1 PACK G-TUBE SCH ×2 (08:21→21:00)
[2017-06-11] MEDS: CLOPIDOGREL 75 MG TAB PEG SCH (08:21)
[2017-06-11] MEDS: LANSOPRAZOLE SOLUTAB 30 MG TAB PEG SCH (08:21)
[2017-06-11] MEDS: DIVALPROEX SODIUM SPRINKLES 125 MG CAP G-TUBE SCH ×2 (08:21→20:21)
[2017-06-11] MEDS: NYSTATIN SUSP 500,000 U/5 ML CUP SWISH-SWAL SCH ×4 (08:22→20:21)
[2017-06-11] MEDS: ASCORBIC ACID 500 MG TAB PEG SCH ×2 (08:22→20:21)
[2017-06-11] MEDS: DOCUSATE SODIUM 50 MG/SENNA 8.6 MG TAB PO SCH ×2 (08:22→20:21)
[2017-06-11] MEDS: LACTIC ACID (AMMONIUM LACTATE) 12% LOTION 225 GM BTL TOPICAL SCH ×2 (08:22→20:23)
[2017-06-11] MEDS: FLUCONAZOLE 100 MG TAB PO SCH (08:23)
[2017-06-11] MEDS: SODIUM CHLORIDE 0.9% FLUSH 10 ML FLUSH IV FLUSH SCH ×3 (09:00→20:22)
[2017-06-11] MEDS: LISINOPRIL 5 MG TAB PO SCH (09:00)
--- NOTE | 2017-06-11 10:20 | HHI.HCSW ---
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 Corona is reported to have advanced directives. Spoke with [facility] and [facility] ([phone]) to inquire about documents. Nurse states son Luis Fernando is reportedly POA but they do not have any documents on file. Unable to identify if POA includes health care surrogate. Hospice has also been following Ms. Corona. Spoke with hospice administrative professional and she was unable to locate any advanced directives in hospice records; Ms. Corona was only on [facility] for 3 days. In absence of advanced directives, per [place] Statutes, medical proxy decision making would fall to the majority of adult children. . Follow Up Visit Palliative care will continue to follow throughout hospitalization. Maria Alejandra Lopez, ELECT[employer] PH[employer] MASK TECHNICIAN Jun 11, 2017 10:20
[2017-06-11] MEDS: LACTULOSE SYRUP 20 GM/30 ML CUP PO PRN (11:28)
[2017-06-11] MEDS: SENNOSIDES 8.6 MG TAB PO PRN (11:28)
[2017-06-11] MEDS: MAGNESIUM HYDROXIDE SUSP 30 ML CUP PEG PRN (11:28)
--- NOTE | 2017-06-11 11:52 | HHI.HCPN ---
Reason for visit a. To assist with evaluation and management of symptoms including: Dyspnea, agitation b. To assist medical decision maker(s) with: better understanding of current medical conditions; weighing benefits/burdens of medical treatment options; making medical treatment decisions. Subjective/Interval History Pt remains intubated, sedated on pressors. Minimally responsive. Family/friend interactions Pt's son not in the Room. I have talked with Luis Fernando in the past hospital visits. Pt was also a previous hospice pt that revoked. I called Luis Fernando x 2, and it appears he have hung up on me. As pt was a previous vitas patient, I was able to find a number Mr. Troy Hooks [phone]. I was able to leave a voicemail, but Troy has not called back as of yet. Advance Directives Living Will: Completed, but not made available Health Care Surrogate: Completed, but not made available Durable Power of Button Station Worker: Completed, but not made available Objective Vital Signs Date Time Temp Pulse Resp B/P (MAP) Pulse Ox O2 Delivery O2 Flow Rate FiO2 06/11/17 10:22 100 35 06/11/17 10:00 79 06/11/17 08:00 80 06/11/17 08:00 97.4 80 20 106/53 (70) 96 06/11/17 08:00 35 06/11/17 07:22 35 06/11/17 07:22 97 35 06/11/17 07:20 35 06/11/17 06:00 85 06/11/17 05:20 78 112/57 06/11/17 04:11 100 35 06/11/17 04:00 35 06/11/17 04:00 98.1 75 14 111/54 (73) 100 06/11/17 04:00 75 06/11/17 02:00 72 06/11/17 00:50 98 35 06/11/17 00:10 69 108/50 06/11/17 00:00 35 06/11/17 00:00 79 06/11/17 00:00 98.7 79 20 108/50 (69) 96 06/10/17 23:04 69 103/54 06/10/17 22:51 71 131/61 06/10/17 22:35 66 118/58 06/10/17 22:00 67 06/10/17 20:23 97 35 06/10/17 20:00 99.4 70 14 96/53 (67) 97 06/10/17 20:00 70 06/10/17 20:00 35 06/10/17 19:00 73 90/49 06/10/17 18:22 78 91/51 06/10/17 18:00 76 06/10/17 17:39 95 35 06/10/17 16:09 95 35 06/10/17 16:00 35 06/10/17 16:00 78 06/10/17 16:00 100.0 78 18 87/48 (61) 95 06/10/17 14:00 62 06/10/17 12:00 94.3 54 18 87/43 (58) 98 06/10/17 12:00 35 06/10/17 12:00 50 06/10/17 11:47 99 35 Intake & Output 06/11/17 06/11/17 06:59 18:59 Intake Total 1336.9 ml Output Total 600 ml Balance 736.9 ml IV Total 679.9 ml Tube Feeding 607 ml Other 50 ml Output Urine Total 600 ml # Bowel Movements 0 Physical Exam CONSTITUTIONAL/GENERAL: This is a thin, frail elderly female, restless on mechanical vent TUBES/LINES/DRAINS: IJ central line, peripheral IV upper extremity, soft restraints, ET tube, OG tube, PEG tube. Frederick catheter. SKIN: No jaundice, rashes, or lesions. Reported sacral wound not visualized. Small pressure ulcerations visible to lateral and medial surfaces of feet. HEAD: Atraumatic. Normocephalic. EYES: Pupils equal and round and reactive. Extraocular motions intact. No scleral icterus. No injection or drainage. Fundi not examined. ENT: Nose without bleeding or purulent drainage. ET tube, OG tube unable to visualize oropharynx. NECK: Trachea midline. Supple, nontender. CARDIOVASCULAR: Regular rate and rhythm no murmur. No JVD. Peripheral pulses faint. RESPIRATORY/CHEST: Symmetric, unlabored respirations. Clear to auscultation. Breath sounds equal bilaterally. No wheezes, rales, or rhonchi. GASTROINTESTINAL: Abdomen soft, flat, non-tender, nondistended. No palpable masses. + G-tube clamped no symptoms of problem. Bowel sounds present. GENITOURINARY: Without palpable bladder distension. Frederick catheter in place. MUSCULOSKELETAL: Extremities without clubbing, cyanosis, or edema. Lower extremities drawn up, contracted. NEUROLOGICAL: Awake and alert. On mechanical vent. Moving upper extremities well, lower extremities minimally move. She is sticking out tongue biting ET tube. She does not follow commands. Eyes are open appears to track. PSYCHIATRIC: Restless at times. Diagnostic Tests Laboratory Laboratory Tests Test 06/09/17 04:30 06/10/17 05:29 06/10/17 06:00 06/10/17 07:32 White Blood Count 11.6 TH/MM3 (4.0-11.0) 10.2 TH/MM3 (4.0-11.0) Red Blood Count 3.39 MIL/MM3 (4.00-5.30) 3.22 MIL/MM3 (4.00-5.30) Hemoglobin 9.7 GM/DL (11.6-15.3) 9.5 GM/DL (11.6-15.3) Hematocrit 30.1 % (35.0-46.0) 28.2 % (35.0-46.0) Mean Corpuscular Volume 88.8 FL (80.0-100.0) 87.6 FL (80.0-100.0) Mean Corpuscular Hemoglobin 28.7 PG (27.0-34.0) 29.6 PG (27.0-34.0) Mean Corpuscular Hemoglobin Concent 32.3 % (32.0-36.0) 33.7 % (32.0-36.0) Red Cell Distribution Width 18.7 % (11.6-17.2) 18.5 % (11.6-17.2) Platelet Count 339 TH/MM3 (150-450) 328 TH/MM3 (150-450) Mean Platelet Volume 8.0 FL (7.0-11.0) 7.6 FL (7.0-11.0) Neutrophils (%) (Auto) 76.7 % (16.0-70.0) 71.7 % (16.0-70.0) Lymphocytes (%) (Auto) 10.3 % (9.0-44.0) 12.4 % (9.0-44.0) Monocytes (%) (Auto) 10.9 % (0.0-8.0) 12.3 % (0.0-8.0) Eosinophils (%) (Auto) 1.5 % (0.0-4.0) 3.0 % (0.0-4.0) Basophils (%) (Auto) 0.6 % (0.0-2.0) 0.6 % (0.0-2.0) Neutrophils # (Auto) 8.9 TH/MM3 (1.8-7.7) 7.3 TH/MM3 (1.8-7.7) Lymphocytes # (Auto) 1.2 TH/MM3 (1.0-4.8) 1.3 TH/MM3 (1.0-4.8) Monocytes # (Auto) 1.3 TH/MM3 (0-0.9) 1.3 TH/MM3 (0-0.9) Eosinophils # (Auto) 0.2 TH/MM3 (0-0.4) 0.3 TH/MM3 (0-0.4) Basophils # (Auto) 0.1 TH/MM3 (0-0.2) 0.1 TH/MM3 (0-0.2) CBC Comment DIFF FINAL DIFF FINAL Differential Comment Blood Urea Nitrogen 9 MG/DL (7-18) 8 MG/DL (7-18) Creatinine 0.48 MG/DL (0.50-1.00) 0.44 MG/DL (0.50-1.00) Random Glucose 109 MG/DL (74-106) 96 MG/DL (74-106) Total Protein 5.4 GM/DL (6.4-8.2) 5.5 GM/DL (6.4-8.2) Albumin 1.8 GM/DL (3.4-5.0) 1.7 GM/DL (3.4-5.0) Calcium Level 8.2 MG/DL (8.5-10.1) 8.3 MG/DL (8.5-10.1) Phosphorus Level 2.3 MG/DL (2.5-4.9) 2.4 MG/DL (2.5-4.9) Magnesium Level 2.1 MG/DL (1.5-2.5) 2.2 MG/DL (1.5-2.5) Alkaline Phosphatase 425 U/L (45-117) 328 U/L (45-117) Aspartate Amino Transf (AST/SGOT) 220 U/L (15-37) 69 U/L (15-37) Alanine Aminotransferase (ALT/SGPT) 151 U/L (10-53) 88 U/L (10-53) Total Bilirubin 0.7 MG/DL (0.2-1.0) 0.3 MG/DL (0.2-1.0) Sodium Level 144 MEQ/L (136-145) 142 MEQ/L (136-145) Potassium Level 3.8 MEQ/L (3.5-5.1) 4.0 MEQ/L (3.5-5.1) Chloride Level 113 MEQ/L (98-107) 112 MEQ/L (98-107) Carbon Dioxide Level 22.7 MEQ/L (21.0-32.0) 23.4 MEQ/L (21.0-32.0) Anion Gap 8 MEQ/L (5-15) 7 MEQ/L (5-15) Estimat Glomerular Filtration Rate 123 ML/MIN (>89) 136 ML/MIN (>89) Free Thyroxine 0.92 NG/DL (0.76-1.46) Free Triiodothyronine (T3) pg/dL LESS THAN 0.50 PG/ML Blood Gas Puncture Site RT RADIAL LT RADIAL Blood Gas Patient Temperature 98.6 98.6 Blood Gas HCO3 20 mmol/L (22-26) 21 mmol/L (22-26) Blood Gas Base Excess -2.4 mmol/L (-2-2) -2.7 mmol/L (-2-2) Blood Gas Oxygen Saturation 97 % (90-100) 96 % (90-100) Arterial Blood pH 7.56 (7.380-7.420) 7.44 (7.380-7.420) Arterial Blood Partial Pressure CO2 22 mmHg (38-42) 31 mmHg (38-42) Arterial Blood Partial Pressure O2 105 mmHg (61-120) 123 mmHg (61-120) Arterial Blood Oxygen Content 13.2 Vol % (12.0-20.0) 12.9 Vol % (12.0-20.0) Arterial Blood Carboxyhemoglobin 1.1 % (0-4) 1.0 % (0-4) Arterial Blood Methemoglobin 0.9 % (0-2) 1.0 % (0-2) Blood Gas Hemoglobin 9.6 G/DL (12.0-16.0) 9.4 G/DL (12.0-16.0) Oxygen Delivery Device VENTILATOR VENTILATOR Blood Gas Ventilator Setting AC16/600/5PEEP AC/RR14/VT500/PEEP8 Blood Gas Inspired Oxygen 35 % 35 % Direct Bilirubin 0.2 MG/DL (0.0-0.2) Test 06/11/17 04:20 White Blood Count 12.6 TH/MM3 (4.0-11.0) Red Blood Count 3.12 MIL/MM3 (4.00-5.30) Hemoglobin 9.1 GM/DL (11.6-15.3) Hematocrit 27.7 % (35.0-46.0) Mean Corpuscular Volume 89.0 FL (80.0-100.0) Mean Corpuscular Hemoglobin 29.2 PG (27.0-34.0) Mean Corpuscular Hemoglobin Concent 32.9 % (32.0-36.0) Red Cell Distribution Width 18.7 % (11.6-17.2) Platelet Count 313 TH/MM3 (150-450) Mean Platelet Volume 8.0 FL (7.0-11.0) Neutrophils (%) (Auto) 73.4 % (16.0-70.0) Lymphocytes (%) (Auto) 11.6 % (9.0-44.0) Monocytes (%) (Auto) 12.4 % (0.0-8.0) Eosinophils (%) (Auto) 2.0 % (0.0-4.0) Basophils (%) (Auto) 0.6 % (0.0-2.0) Neutrophils # (Auto) 9.3 TH/MM3 (1.8-7.7) Lymphocytes # (Auto) 1.5 TH/MM3 (1.0-4.8) Monocytes # (Auto) 1.6 TH/MM3 (0-0.9) Eosinophils # (Auto) 0.3 TH/MM3 (0-0.4) Basophils # (Auto) 0.1 TH/MM3 (0-0.2) CBC Comment DIFF FINAL Differential Comment Blood Urea Nitrogen 15 MG/DL (7-18) Creatinine 0.46 MG/DL (0.50-1.00) Random Glucose 134 MG/DL (74-106) Total Protein 5.6 GM/DL (6.4-8.2) Albumin 1.6 GM/DL (3.4-5.0) Calcium Level 8.4 MG/DL (8.5-10.1) Alkaline Phosphatase 283 U/L (45-117) Aspartate Amino Transf (AST/SGOT) 33 U/L (15-37) Alanine Aminotransferase (ALT/SGPT) 62 U/L (10-53) Total Bilirubin 0.3 MG/DL (0.2-1.0) Sodium Level 142 MEQ/L (136-145) Potassium Level 4.3 MEQ/L (3.5-5.1) Chloride Level 113 MEQ/L (98-107) Carbon Dioxide Level 24.4 MEQ/L (21.0-32.0) Anion Gap 5 MEQ/L (5-15) Estimat Glomerular Filtration Rate 129 ML/MIN (>89) Result Diagram: 06/11/1741906/11/17 0420 Microbiology Microbiology Date/Time Source Procedure Growth Status 06/09/17 14:25 Blood Peripheral Aerobic Blood Culture - Preliminary NO GROWTH IN 2 DAYS Resulted 06/09/17 14:25 Blood Peripheral Anaerobic Blood Culture - Preliminary NO GROWTH IN 2 DAYS Resulted 06/09/17 11:45 Blood Line Aerobic Blood Culture - Preliminary NO GROWTH IN 2 DAYS Resulted 06/09/17 11:45 Blood Line Anaerobic Blood Culture - Preliminary NO GROWTH IN 2 DAYS Resulted Procedures =3/2 intubation, central line RT IJ = bronchoscopy Assessment and Plan Disease Oriented Problem List: (1) BipolarII (2) Sacral decubitus ulcer (3) Malnutrition (4) ESBL (extended spectrum beta-lactamase) producing bacteria infection (5) HTN (hypertension) (6) Respiratory failure (7) Dislodged gastrostomy tube Symptom Scale: (1) Dyspnea 0-10 Scale: Unable to quantify (2) Pain 0-10 Scale: Unable to quantify (3) Agitation 0-10 Scale: Unable to quantify Pertinent Non-Medical Issues Psychosocial: Spiritual: jc Orantes declined aeronautical test engineer visits at this time Legal:Electronic record notes living will HCS/ DPOA however I do not have copies of these documents at this time. Patient unable to participate due to advanced dementia. Local son Luis Fernando has been serving as primary proxy, however today upon further discussion with him apparently patient has 6 children total; one son is , one son is mentally handicapped and dependent for care however she does have 4 other sons--Luis Fernando is local, and the other 3 live in 3 other states. Per [place] statutes legal decision making would actually fall to the majority of all the adult children who wished to be involved, so we should attempt to involve and contact them to determine if they wish to participate. Son Tells me that he has always served as decision maker because he is local, though not clear that this is documented in any type of HCS etc. Ethical issues impacting care: Important Contacts Luis Fernando Hooks [phone] or [phone]/ son, proxy Prognosis This patient was admitted for cough, shortness of breath. She has advanced dementia, she has had recurrent hospitalizations for infections and complications. She is bedbound and contracted. She had worsening respiratory distress today requiring intubation. Possible with prolonged aggressive interventions she might recover from a current acute episode, though she is very debilitated and high risk for further complications , setbacks and . She is appropriate for hospice if goals compatible. . Code Status: Full Code Plan * Legal decision maker: * Capacity- pt has not capacity to make medical decisions. * Legal decision maker: in the past Luis Fernando hooks had expressed that he was the POA/ or that he was the only child. He did express to us for this hospital visit patient has 6 children total; one son is , one son is mentally handicapped and dependent for care however she does have 4 other sons--Luis Fernando is local, and the other 3 live in 3 other states. Digging into other records, I was able to find Troy Tateavener . Left a message, but has as not returned phone called. Luis Fernando Hooks - local proxy- who had hung up on me x 2 today. He is currently the only reachable relative. I will consult case management to assist us in finding the other 2 children. Luis Fernando has hung up on me today, and I have not been able to get information about the other children. I am case managment with either calling Luis Fernando or Troy to get infomation on pt's other children, or any advance directives. We likely will need accurints search to locate the other children if obtaining information has not been successful. * Goals: I have not been able to reach Luis Fernando today (he has hung up on me x2). Son Luis Fernando had expressed very aggressive goals, he would want to continue any and all treatments possible to help the patient recover to her most recent status. He remains hopeful that at some point she'll be able to start getting out of bed again. He is not certain why she had a DNR in the past she indicates she should remain a full code. Palliative care in the past have extensively reviewed with him patient's conditions and high risk for decline and at any time he feels she has recovered from recurrent hospitalizations in the past and he expects she will continue to do so. Luis Fernando has revoked hospice x 2. Will require further discussion regarding goals once hospital staff determine if the other children wish to be involved. * CODE STATUS: only reachable children has been Luis Fernando and pt is a Full Code. * SYMPTOMS: --Dyspnea -admitted for cough, shortness of breath. Emergently intubated 06/07 for worsening respiratory status. Currently breathing somewhat comfortably on mechanical vent though frequent cough --Pain- large sacral decubitus ulcer, chronic. Potential source of pain. Chronic bedbound status, contractures other potential sources of pain. Consider low-dose analgesic --Agitation- per review of EMR patient with history of agitation and confusion, striking at caregivers and facility, given underlying history of dementia, intubation, and acute infectious processes, at risk for agitation/ anxiety; require sedation for ventilator comfort * Palliative care will continue to follow during hospital course as condition evolves, to assist patient/decision-maker with understanding of medical conditions, weighing benefits/burdens of treatment options, for clarification of goals of treatment. Additionally will assist with any symptoms of palliative concern. I am concern currently that Luis Fernando, the only reachable decision maker is refusing to speak with palliative care. He has hung up on me x 2. . Addendum: I was able to reach Troy Hooks today. Pt's son. He said he is the Power of Button Station Worker and I gave him Fax number [phone] to fax advance directives. Troy said he is not on speaking terms with Luis Fernando. I have updated him on pt's current situation. Spoke about code status and trach decisions. He understand until I get the POA / advance directive, medical decisions cannot be made unilateraly by just one children. Currently Luis Fernando Pacheco is not answering my calls. Pt's children are as follows: Douglas Pop (has mental retardation). Troy Hooks (who I just spoke to). Luis Fernando Hooks (who has been refusing my call today). Lucy Hooks ( [place]) Jann Hooks (past away). Besides Troy and Luis Fernando, we have no other contact information on family. Will readdress goals of care with Troy Hooks advance directives received. Attestation To help prompt me to consider important information that might be impacting today's encounter and assessment, information from prior notes written by myself or my colleagues may have been "brought forward" into today's note. My signature on this note, however, is an attestation that I personally performed the exam, history, and/or decision-making noted today, and, unless otherwise indicated, the interactions with patient, family, and staff as well as the review of records all occurred today. I also attest that the listed assessment and stated plan reflect my best clinical judgment today based on the combination of historical information, prior notes, and today's exam/ interactions. When time spent is documented, it refers only to time spent today by the signer, or if indicated, combined time spent today by collaborating physician/nurse practitioner. Cortes Quinteros MD Jun 11, 2017 11:52
--- NOTE | 2017-06-11 15:17 | HHI.IDPN ---
Note Infectious Disease Note Patient was transferred to [facility] because of respiratory distress. Remains intubated on the ventilator. She is now on CPAP. She was taken off Levophed earlier in the day but had to put back on because of decreased MAP. She is now on 4 mcg. She reportedly became agitated when awakened and she is now sedated. Afebrile. Bronchoscopy culture showed normal jaky. 86-year-old white female who was brought to the emergency department from a senior living facility. The patient apparently had respiratory symptoms with coughing. She has been on IV antibiotics for possible pneumonia. She also is noted to have a decubitus sacral ulceration. She has an indwelling Frederick catheter. The patient is severely demented. PAST MEDICAL HISTORY 1. Urinary tract infection 2. Hypothyroidism, 3. Dementia, 4. Bipolar disorder, 5. Schizophrenia 6. PEG placement 7. Total abdominal hysterectomy. ALLERGIES SULFA ASPIRIN CELECOXIB HALOPERIDOL RESPERIDONE CHLORPROMAZINE. ANTIBIOTICS: Meropenem. Vancomycin. OBJECTIVE: Vital Signs Date Time Temp Pulse Resp B/P (MAP) Pulse Ox O2 Delivery O2 Flow Rate FiO2 06/11/17 14:00 67 06/11/17 12:00 73 06/11/17 12:00 97.6 73 22 109/49 (69) 100 06/11/17 12:00 35 06/11/17 10:22 100 35 06/11/17 10:00 79 06/11/17 08:00 80 06/11/17 08:00 97.4 80 20 106/53 (70) 96 06/11/17 08:00 35 06/11/17 07:22 35 06/11/17 07:22 97 35 06/11/17 07:20 35 06/11/17 06:00 85 06/11/17 05:20 78 112/57 06/11/17 04:11 100 35 06/11/17 04:00 35 06/11/17 04:00 98.1 75 14 111/54 (73) 100 06/11/17 04:00 75 06/11/17 02:00 72 06/11/17 00:50 98 35 06/11/17 00:10 69 108/50 06/11/17 00:00 35 06/11/17 00:00 79 06/11/17 00:00 98.7 79 20 108/50 (69) 96 06/10/17 23:04 69 103/54 06/10/17 22:51 71 131/61 06/10/17 22:35 66 118/58 06/10/17 22:00 67 06/10/17 20:23 97 35 06/10/17 20:00 99.4 70 14 96/53 (67) 97 06/10/17 20:00 70 06/10/17 20:00 35 06/10/17 19:00 73 90/49 06/10/17 18:22 78 91/51 06/10/17 18:00 76 06/10/17 17:39 95 35 06/10/17 16:09 95 35 06/10/17 16:00 35 06/10/17 16:00 78 06/10/17 16:00 100.0 78 18 87/48 (61) 95 Laboratory Tests Test 06/10/17 06:00 06/11/17 04:20 White Blood Count 10.2 TH/MM3 12.6 TH/MM3 Red Blood Count 3.22 MIL/MM3 3.12 MIL/MM3 Hemoglobin 9.5 GM/DL 9.1 GM/DL Hematocrit 28.2 % 27.7 % Mean Corpuscular Volume 87.6 FL 89.0 FL Mean Corpuscular Hemoglobin 29.6 PG 29.2 PG Mean Corpuscular Hemoglobin Concent 33.7 % 32.9 % Red Cell Distribution Width 18.5 % 18.7 % Platelet Count 328 TH/MM3 313 TH/MM3 Mean Platelet Volume 7.6 FL 8.0 FL Neutrophils (%) (Auto) 71.7 % 73.4 % Lymphocytes (%) (Auto) 12.4 % 11.6 % Monocytes (%) (Auto) 12.3 % 12.4 % Eosinophils (%) (Auto) 3.0 % 2.0 % Basophils (%) (Auto) 0.6 % 0.6 % Neutrophils # (Auto) 7.3 TH/MM3 9.3 TH/MM3 Lymphocytes # (Auto) 1.3 TH/MM3 1.5 TH/MM3 Monocytes # (Auto) 1.3 TH/MM3 1.6 TH/MM3 Eosinophils # (Auto) 0.3 TH/MM3 0.3 TH/MM3 Basophils # (Auto) 0.1 TH/MM3 0.1 TH/MM3 CBC Comment DIFF FINAL DIFF FINAL Differential Comment Laboratory Tests Test 06/10/17 06:00 06/11/17 04:20 Blood Urea Nitrogen 8 MG/DL 15 MG/DL Creatinine 0.44 MG/DL 0.46 MG/DL Random Glucose 96 MG/DL 134 MG/DL Total Protein 5.5 GM/DL 5.6 GM/DL Albumin 1.7 GM/DL 1.6 GM/DL Calcium Level 8.3 MG/DL 8.4 MG/DL Phosphorus Level 2.4 MG/DL Magnesium Level 2.2 MG/DL Alkaline Phosphatase 328 U/L 283 U/L Aspartate Amino Transf (AST/SGOT) 69 U/L 33 U/L Alanine Aminotransferase (ALT/SGPT) 88 U/L 62 U/L Total Bilirubin 0.3 MG/DL 0.3 MG/DL Direct Bilirubin 0.2 MG/DL Sodium Level 142 MEQ/L 142 MEQ/L Potassium Level 4.0 MEQ/L 4.3 MEQ/L Chloride Level 112 MEQ/L 113 MEQ/L Carbon Dioxide Level 23.4 MEQ/L 24.4 MEQ/L Anion Gap 7 MEQ/L 5 MEQ/L Estimat Glomerular Filtration Rate 136 ML/MIN 129 ML/MIN Microbiology Date/Time Source Procedure Growth Status 06/09/17 14:25 Blood Peripheral Aerobic Blood Culture - Preliminary NO GROWTH IN 2 DAYS Resulted 06/09/17 14:25 Blood Peripheral Anaerobic Blood Culture - Preliminary NO GROWTH IN 2 DAYS Resulted 06/09/17 11:45 Blood Line Aerobic Blood Culture - Preliminary NO GROWTH IN 2 DAYS Resulted 06/09/17 11:45 Blood Line Anaerobic Blood Culture - Preliminary NO GROWTH IN 2 DAYS Resulted IMAGING: Last 24 hours Impressions Chest X-Ray 06/11/17 0600 Signed Impressions: Service Date/Time: Sunday, June 11, 2017 05:07 - CONCLUSION: Mild bibasilar opacity most likely representing atelectasis. Otherwise, no acute finding is appreciated given the technique. Werner Moncada MD Chest X-Ray 06/10/17 0600 Signed Impressions: Service Date/Time: Saturday, June 10, 2017 04:12 - CONCLUSION: 1. Stable left basilar opacity likely representing pleural effusion with associated volume loss and/or airspace consolidation. 2. Endotracheal tube distal tip now measures 2.6 cm from the montserrat. Werner Moncada MD Abdomen X-Ray 06/07/17 0000 Signed Impressions: Service Date/Time: Wednesday, June 07, 2017 12:57 - CONCLUSION: Contrast is noted within the stomach. Kristopher Poole MD PHYSICAL EXAMINATION GENERAL: Sedated. On the ventilator. HEENT: Head is atraumatic. Extraocular movements are grossly intact, pupils reactive to light. No icterus. Oropharynx moist mucosa. NECK: Supple. LUNGS: Decreased breath sounds. No rhonchi. HEART: Regular S1 and S2. No audible murmur. ABDOMEN: Bowel sounds present, soft. EXTREMITIES: No clubbing or cyanosis, no edema. Contractures of the lower extremities. NEUROLOGIC: Unable to assess. PSYCHIATRIC: Unable to assess. IMPRESSION 1. Acute respiratory failure. Right lower lobe infiltrate from mucous plugging. Probable aspiration pneumonia. HCAP. 2. Urinary tract infection due to ESBL E-coli. 3. Severe dementia. RECOMMENDATIONS 1. Continue meropenem for pulmonary coverage 2. Continue vancomycin. 3. Follow the blood culture. 4. Monitor clinical status. Stevenson Mcneill MD Jun 11, 2017 15:17
--- NOTE | 2017-06-11 18:26 | HHI.CCPN ---
Subjective Remarks/Hospital Course This is an 86-year-old female. Date of admission 06/01/2017. Date of consultation 06/07/2017. 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 She was diagnosed with a urinary tract infection.. She had a stage IV sacral decubitus ulcer 11 x 7 cm in wound care with infectious disease was consulted to evaluate that aspect of her care. Patient was treated with ertapenem form BSL positive E. coli urinary tract infection/Pseudomonas UTI and stage IV sacral decubitus ulcer. Last night, patient became confused and pulled out her PEG tube. This morning she had an acute decline in respiratory status including hypoxia and hypercapnia. Chest x- ray revealed left lower lobe infiltrate versus mucous plugging. A rapid response team was called the patient was transferred on 522. Upon my arrival, patient was tachypneic with saturations in the low 80s. Patient was emergently intubated/fiberoptic bronchoscopy was performed emergently as able to to contact son and central line placed due to extremely poor IV access. Subjective 3/4: Afebrile. FiO2 to 30%. We will wean PEEP to 5. Oxygenating much better at the present time. Arousable on the ventilator. Sticks out her tongue. 3/4: He is on Levophed currently at 6 Mr./min, patient decreased significantly currently on Versed 3 mg/hour. LFTs notably significantly elevated today pravastatin placed on hold. Leukocytosis resolving. 3/5:Afebrile. FIO2 .40%, PEEP 8 . Continues to require vasopressor support. 6: Patient intermittently on vasopressor support will begin Midodrine. Patient tolerated CPAP trials greater than 8 hours. Objective Vital Signs Date Time Temp Pulse Resp B/P (MAP) Pulse Ox O2 Delivery O2 Flow Rate FiO2 06/11/17 16:04 100 35 06/11/17 16:00 97.4 74 20 104/51 (68) 06/08/17 07:00 Mechanical Ventilator 06/07/17 09:03 15.00 Intake and Output 06/11/17 06/11/17 06/12/17 08:00 16:00 00:00 Intake Total 1136.9 ml 653 ml Output Total 600 ml 1200 ml Balance 536.9 ml -547 ml Result Diagram: 06/11/17 0420 06/11/17 0420 Imaging Last Impressions Chest X-Ray 06/11/17 06 Signed Impressions: Service Date/Time: Sunday, June 11, 2017 05:07 - CONCLUSION: Mild bibasilar opacity most likely representing atelectasis. Otherwise, no acute finding is appreciated given the technique. Werner Moncada MD Abdomen X-Ray 06/07/17 0000 Signed Impressions: Service Date/Time: Wednesday, June 07, 2017 12:57 - CONCLUSION: Contrast is noted within the stomach. Kristopher Poole MD Last Impressions Chest X-Ray 06/10/17 06 Signed Impressions: Service Date/Time: Saturday, June 10, 2017 04:12 - CONCLUSION: 1. Stable left basilar opacity likely representing pleural effusion with associated volume loss and/or airspace consolidation. 2. Endotracheal tube distal tip now measures 2.6 cm from the montserrat. Werner Moncada MD Abdomen X-Ray 06/07/17 0000 Signed Impressions: Service Date/Time: Wednesday, June 07, 2017 12:57 - CONCLUSION: Contrast is noted within the stomach. Kristopher Poole MD Last Impressions Chest X-Ray 06/09/17 06 Signed Impressions: Service Date/Time: Friday, June 09, 2017 03:56 - CONCLUSION: 1. ET tube tip convex at the right main bronchus and needs to be withdrawn 2 cm. 2. Persistent left lower lobe consolidation. Ang Booth MD Abdomen X-Ray 06/07/17 0000 Signed Impressions: Service Date/Time: Wednesday, June 07, 2017 12:57 - CONCLUSION: Contrast is noted within the stomach. Kristopher Poole MD Last Impressions Chest X-Ray 06/07/17 1157 Signed Impressions: Service Date/Time: Wednesday, June 07, 2017 12:24 - CONCLUSION: Line in good position. Consolidative changes left base.. Celestine Ritter MD FACR Abdomen X-Ray 06/07/17 0000 Signed Impressions: Service Date/Time: Wednesday, June 07, 2017 12:57 - CONCLUSION: Contrast is noted within the stomach. Kristopher Poole MD Objective Remarks GENERAL: 86-year-old female currently orotracheally intubated, spontaneous eye opening SKIN: Warm and dry. Stage IV sacral decubitus ulcer 11 x 7 cm, 2 lateral foot 2 x 1 cm stage II ulcers HEAD: Atraumatic. Normocephalic. EYES: Pupils equal and round about 3 mm bilaterally and reactive. No scleral icterus. No injection or drainage. ENT: No nasal bleeding or discharge. Mucous membranes pink and moist. NECK: Trachea midline. No JVD. CARDIOVASCULAR: Regular rate and rhythm. S1, S2. No S4. RESPIRATORY: Diminished breath sounds involving the left lower lobe. No wheezing. GASTROINTESTINAL: Abdomen soft, non-tender, nondistended. PEG tube insitu left upper quadrant. No bleeding is appreciated MUSCULOSKELETAL: Extremities without significant peripheral edema. Patient appears to be alexia the bilateral upper extremities and lower extremities NEUROLOGICAL: Currently orotracheally intubated. Positive gag and corneal reflex. Moving all 4 extremities spontaneously but not to command. Date of Insertion: Jun 07, 2017 Line: Central Venous Catheter Side: Right Location: Internal, Jugular A/P Assessment and Plan Neuro/Psych: Dementia disorder NOS Bipolar disorder Schizophrenia disorder NOS Acute toxic metabolic encephalopathy secondary hypoxia Seizure disorder NOS Hard of hearing Currently on midazolam drip at 2 mg an hour for sedation while intubated Goal of RASS -2 Daily sedation vacation Acetaminophen 650 mg by PEG every 6 hours as needed fever Currently on Depakote 250 mg by tube twice daily. Currently on mirtazapine 15 mg at night. Continue CV: Hypertension Dyslipidemia Atherosclerotic vascular disease Currently on D5 normal saline at 75 cc an hour discontinued 0600 06/09 Currently norepinephrine to maintain mean arterial pressure greater than equal to 65- 06/11 Will begin Midodrine Metoprolol succinate 50 mg by PEG twice daily/home medication will be held in light of bradycardia Lisinopril 5 mg daily will be held in light of hypertension Spironolactone 25 mg p.o. daily has been held Continue clopidogrel bisulfate 75 mg daily for peripheral vascular disease Continue pravastatin 10 mg p.o. daily for dyslipidemia Pravastatin placed on hold in the setting of elevated liver enzymes- beginning to downtrend Resp: Acute respiratory failure secondary to left lower lobe pneumonia and mucous plugging ACV 16/500/8/30 Ventilator bundle Albuterol/ipratropium aerosols every 6 hours with albuterol aerosols every 2 hours as needed dyspnea Hypertonic saline aerosols every 6 hours for 7 days as mucolytic Guaifenesin liquid 400 mg every 8 hours Spontaneous breathing trials as tolerated Status post bronchoscopy 06/07. Please see note GI: Self removal of PEG tube Gastroesophageal reflux disease History of esophageal dilatation/dislocation Status post PEG tube placement Constipation NG tube has been placed while intubated. Okay to remove. PEG tube replaced by Dr. Baker/GI at bedside. Gastrografin confirms placement. Jevity 1.5 goal 55 cc/h per dietary recommendations Omeprazole 30 mg by PEG for GI prophylaxis Docusate sodium/senna 100 mg/8.6 mg 1 tablet by PEG twice daily for bowel regimen : Recurrent urinary tract infections Frederick catheter has been placed for accurate I's and O's in a critically ill patient Endo: Hypothyroidism History of thyroidectomy Novulog sliding scale insulin with Accu-Cheks every 6 hours to maintain euglycemia Currently on levothyroxine 100 mcg daily. Increase to 200 mcg daily. Recheck TSH in 1 week ordered. Noted no IV L levothyroxine available at this facility except for emergent situations. Resting instructed to provide levothyroxine in a NPO status, at least 1 hour prior to administration TSH was 88. Renal: Creatinine currently within normal limits Monitor urine output Accurate I's and O's Heme: CBC currently within normal limits Currently on enoxaparin 30 mg subcu daily for DVT prophylaxis ID: E. coli ESBL positive/Pseudomonas urinary tract infection Sacral decubitus ulcer Leukocytosis Currently on meropenem day #4. Switch from ertapenem on 06/07 Currently on fluconazole 100 mg by tube daily for thrush with nystatin swish and spit Followed by infectious disease/Dr. Mcneill Pertinent cultures 06/06 -BAL --gram-positive cocci in pairs. 06/05 -urine -Pseudomonas 06/01 -urine -ESBL positive E. coli/pseudomonas MSK: Generalized debilitation PT evaluate and treat FEN: Hypophosphatemia Replace electrolytes as clinically indicated 15 mmol sodium/IV 1 now. Recheck in a.m. Access -Utilize right IJ CVL day #5 placed 06/07 Prophylaxis -GI -omeprazole -DVT -SCD/enoxaparin Critical Care: Level 3 followup Physician Robina Houston MD Jun 11, 2017 18:26
[2017-06-11] MEDS ORDERED: MIDODRINE 5 MG TAB PO ONE (18:30)
--- NOTE | 2017-06-11 19:09 | HHI.PR ---
Subjective Remarks Late entry seen earlier this am. Remains on Ventilator support. Objective Vital Signs Date Time Temp Pulse Resp B/P (MAP) Pulse Ox O2 Delivery O2 Flow Rate FiO2 06/11/17 18:00 80 06/11/17 17:00 78 06/11/17 16:04 100 35 06/11/17 16:00 97.4 74 20 104/51 (68) 100 06/11/17 16:00 74 06/11/17 16:00 35 06/11/17 14:00 67 06/11/17 12:00 73 06/11/17 12:00 97.6 73 22 109/49 (69) 100 06/11/17 12:00 35 06/11/17 10:22 100 35 06/11/17 10:00 79 06/11/17 08:00 80 06/11/17 08:00 97.4 80 20 106/53 (70) 96 06/11/17 08:00 35 06/11/17 07:22 35 06/11/17 07:22 97 35 06/11/17 07:20 35 06/11/17 06:00 85 06/11/17 05:20 78 112/57 06/11/17 04:11 100 35 06/11/17 04:00 35 06/11/17 04:00 98.1 75 14 111/54 (73) 100 06/11/17 04:00 75 06/11/17 02:00 72 06/11/17 00:50 98 35 06/11/17 00:10 69 108/50 06/11/17 00:00 35 06/11/17 00:00 79 06/11/17 00:00 98.7 79 20 108/50 (69) 96 06/10/17 23:04 69 103/54 06/10/17 22:51 71 131/61 06/10/17 22:35 66 118/58 06/10/17 22:00 67 06/10/17 20:23 97 35 06/10/17 20:00 99.4 70 14 96/53 (67) 97 06/10/17 20:00 70 06/10/17 20:00 35 06/10/17 19:00 73 90/49 I/O 06/10/17 06/10/17 06/10/17 06/11/17 06/11/1706/11/18 07:00 15:00 23:00 07:00 15:00 23:00 Intake Total 766 ml 250 ml 753 ml 1236.9 ml 653 ml Output Total 800 ml 1250 ml 600 ml 1200 ml Balance -34 ml 250 ml -497 ml 636.9 ml -547 ml IV Total 300 ml 250 ml 100 ml 579.9 ml Tube Feeding 466 ml 653 ml 607 ml 653 ml Other 50 ml Output Urine Total 800 ml 1250 ml 600 ml 1200 ml # Bowel Movements 0 0 0 Result Diagram: 06/11/1741906/11/17419 Imaging Last 72 hours Impressions Chest X-Ray 06/11/17599 Signed Impressions: Service Date/Time: Sunday, June 11, 2017 05:07 - CONCLUSION: Mild bibasilar opacity most likely representing atelectasis. Otherwise, no acute finding is appreciated given the technique. Werner Moncada MD Chest X-Ray 06/10/17599 Signed Impressions: Service Date/Time: Saturday, June 10, 2017 04:12 - CONCLUSION: 1. Stable left basilar opacity likely representing pleural effusion with associated volume loss and/or airspace consolidation. 2. Endotracheal tube distal tip now measures 2.6 cm from the montserrat. Werner Moncada MD Chest X-Ray 06/09/17599 Signed Impressions: Service Date/Time: Friday, June 09, 2017 03:56 - CONCLUSION: 1. ET tube tip convex at the right main bronchus and needs to be withdrawn 2 cm. 2. Persistent left lower lobe consolidation. Ang Booth MD Objective Remarks Objective Remarks HEENT ETT in place on a vent, Oropharynx moist mucosa. Resp -Diminished on ventilation support CV - RRR GI-PEG in place and without apparent tenderness. BS are active MS - contractures of extremities again noted Neuro- Opens eyes, does not follow commands Medications and IVs Current Medications Medications (Trade) Dose Ordered Sig/Db Route Start Time Stop Time Status Last Admin (Vitamin C) 500 mg BID PEG 06/01/17 09:00 06/11/17 08:22 (Plavix) 75 mg DAILY PEG 06/01/17 09:00 06/11/17 08:21 (Lac-Hydrin 12% Lotion) 1 applic BID TOPICAL 06/01/17 09:00 06/11/17 08:22 (Prevacid Odt) 30 mg DAILY PEG 06/01/17 09:00 06/11/17 08:21 (Milk Of Magnesia Liq) 30 ml HS PRN PEG 06/01/17 06:00 06/11/17 11:28 (Lopressor) 50 mg BID PEG 06/01/17 09:00 Future Hold 06/07/17 20:13 (Remeron) 15 mg HS PEG 06/01/17 21:00 06/10/17 20:58 (Pravachol) 10 mg HS PEG 06/01/17 21:00 Future Hold 06/08/17 20:58 (Aldactone) 25 mg DAILY PEG 06/01/17 09:00 06/11/17 08:21 (Theragran M Tab) 1 tab DAILY PEG 06/01/17 09:00 06/11/17 08:21 (NS Flush) 2 ml UNSCH PRN IV FLUSH 06/01/17 06:00 (NS Flush) 2 ml BID IV FLUSH 06/01/17 09:00 06/11/17 09:00 (Tylenol 650 Mg/ 20 ml Liq) 650 mg Q4H PRN PEG 06/01/17 06:30 (Lovenox Inj) 30 mg Q24H SQ 06/01/17 06:00 06/11/17 06:21 (Narcan Inj) 0.4 mg UNSCH PRN IV PUSH 06/01/17 06:00 (Peggy-Colace) 1 tab BID PO 06/01/17 09:00 06/11/17 08:22 (Milk Of Magnesia Liq) 30 ml Q12H PRN PO 06/01/17 06:00 (Senokot) 17.2 mg Q12H PRN PO 06/01/17 06:00 06/11/17 11:28 (Dulcolax Supp) 10 mg DAILY PRN RECTAL 06/01/17 06:00 (Lactulose Liq) 30 ml DAILY PRN PO 06/01/17 06:00 06/11/17 11:28 (Depakote Sprinkles) 250 mg BID G-TUBE 06/01/17 21:00 06/11/17 08:21 (Diflucan) 100 mg DAILY PO 06/03/17 16:30 06/11/17 08:23 (Mycostatin Liq) 5 ml QID SWISH-SWAL 06/03/17 18:00 06/11/17 17:28 (Prinivil) 5 mg DAILY PO 06/05/17 09:00 06/06/17 09:09 (D50w (Vial) Inj) 50 ml UNSCH PRN IV PUSH 06/07/17 04:00 (Glucagon Inj) 1 mg UNSCH PRN OTHER 06/07/17 04:00 (Peridex 0.12% Liq) 15 ml BID@08,20 MT 06/07/17 20:00 06/11/17 08:00 Propofol 100 ml @ 1.89 mls/hr TITRATE PRN IV 06/07/17 11:00 Future Hold 06/07/17 14:00 Fentanyl Citrate 250 ml @ 5 mls/hr TITRATE PRN IV 06/07/17 11:15 Future Hold 06/08/17 10:35 (Albuterol Neb) 2.5 mg Q2HR NEB PRN NEB 06/07/17 11:15 (NS Flush) DAILY IV FLUSH 06/08/17 09:00 06/11/17 09:00 (NS Flush) UNSCH PRN IV FLUSH 06/07/17 12:00 (Robitussin Liq) 400 mg Q8HR PEG 06/07/17 14:00 06/11/17 06:20 (Sodium Chloride 3% Neb) 2 ml Q6HR NEB NEB 06/07/17 16:00 06/14/17 15:59 06/11/17 16:04 Meropenem 1000 mg/ Sodium Chloride 100 ml @ 200 mls/hr Q8H IV 06/07/17 15:00 06/11/17 16:12 Norepinephrine Bitartrate 4 mg/ Sodium Chloride 254 ml @ 7.62 mls/hr TITRATE PRN IV 06/07/17 20:00 06/10/17 18:22 (Synthroid) 200 mcg DAILY@0600 PEG 06/08/17 06:00 06/11/17 06:21 Miscellaneous Information Patient in critical care unit? Ass... Q361D .XX 06/07/17 21:00 06/07/17 21:00 (Chlorhexidine 2% Cloth) 3 pack DAILY@04 TOPICAL 06/08/17 04:00 06/12/17 04:01 06/11/17 04:00 (Chlorhexidine 2% Cloth) 3 pack UNSCH PRN TOPICAL 06/07/17 21:00 06/12/17 20:58 (Miguel Angel Powder) 1 pack BID G-TUBE 06/08/17 21:00 06/11/17 08:21 Pharmacy Profile Note 0 ml @ 0 mls/hr UNSCH OTHER 06/09/17 11:45 Vancomycin HCl 1000 mg/Sodium Chloride 250 ml @ 250 mls/hr Q18H IV 06/09/17 14:00 06/11/17 01:44 Miscellaneous Information SPECIFIC LAB TO BE DRAWN:va... ONCE ONCE .XX 06/11/17 19:45 06/11/17 19:46 Midazolam HCl 100 ml @ 2 mls/hr TITRATE PRN IV 06/09/17 12:30 06/10/17 00:31 (Proamatine) 10 mg TID@07,12,17 PO 06/12/17 07:00 Assessment and Plan Problem List: (1) Respiratory failure ICD Codes: J96.90 - Respiratory failure, unspecified, unspecified whether with hypoxia or hypercapnia Plan: Remains on Mechanical ventilation pickle sorter following, Weaning trials (2) ESBL (extended spectrum beta-lactamase) producing bacteria infection ICD Codes: A49.9 - Bacterial infection, unspecified; Z16.12 - Extended spectrum beta lactamase (ESBL) resistance Plan: Infectious disease on case continue antibiotics per ID (3) Sacral decubitus ulcer ICD Codes: L89.159 - Pressure ulcer of sacral region, unspecified stage Status: Acute Plan: wound care Following, order for calcium alginate q3 days r/t patient cooperation Assessment and Plan Palliative care following multiple Family dynamics Problem Qualifiers (1) Sacral decubitus ulcer: Qualified Codes: L89.154 - Pressure ulcer of sacral region, stage 4 Joyce Smith Jun 11, 2017 19:09
[2017-06-11] MEDS ORDERED: PHARMACY ORDERED LAB ONE (19:45)
[2017-06-11] MEDS: MIRTAZAPINE 15 MG TAB PEG SCH (20:21)
[2017-06-12] VITALS (38 sets, daily range): BP systolic 67–155; BP diastolic 31–96; PULSE 62–95; RESP 2–35; TEMP 98.1–98.5; O2SAT 89–100
[2017-06-12] MEDS: MEROPENEM INJ 1,000 MG in SODIUM CHLORIDE 0.9% INJ 100 ML IV SCH ×4 (00:31→22:11)
[2017-06-12] MEDS: RESP: SODIUM CHLORIDE 3% 4 ML NEB NEB SCH ×4 (03:50→20:08)
[2017-06-12] MEDS: CHLORHEXIDINE GLUCONATE 2 % 1 PACK (2 CLOTHS)(taper/protocol) TOPICAL SCH (04:00)
--- NOTE | 2017-06-12 04:53 | RADRPT ---
EXAM DATE/TIME: 06/12/2017 03:39 [facility] COMPARISON: CHEST SINGLE AP, June 11, 2017, 5:07. INDICATIONS : Short of breath. MEDICAL HISTORY : Hypertension. Gastroesophageal reflux disease. Hiatal hernia. CVA A-fib SURGICAL HISTORY : Hysterectomy. Appendectomy. ENCOUNTER: Subsequent ACUITY: 2 weeks PAIN SCORE: 0/10 LOCATION: Bilateral chest FINDINGS: Rotated and underinflated AP view of the chest demonstrates a normal-sized cardiac silhouette. ETT an d right IJ line remain present. There is elevation of the right hemidiaphragm. No effusion, consolida tion, or pneumothorax is identified. Multiple EKG lines overlie the patient. CONCLUSION: Underinflated and rotated examination without an acute abnormality identified. Overall, stable exam. Werner Moncada MD on June 12, 2017 at 4:51 Board Certified Radiologist. This report was verified electronically.
[2017-06-12 05:37] LABS: HEMATOCRIT 23.7 % (35.0-46.0); HEMOGLOBIN 8.1 GM/DL (11.6-15.3); MEAN CELL VOLUME 89.5 FL (80.0-100.0); MEAN CORPUSCULAR HEMOGLOBIN 30.4 PG (27.0-34.0); MEAN CORPUSCULAR HGB CONC 33.9 % (32.0-36.0); PLATELET COUNT 264 TH/MM3 (150-450); RED BLOOD COUNT 2.65 MIL/MM3 (4.00-5.30); RED CELL DISTRIBUTION WIDTH 18.9 % (11.6-17.2); WHITE BLOOD COUNT 9.2 TH/MM3 (4.0-11.0)
[2017-06-12] MEDS: guaiFENesin SOLUTION 200 MG/10 ML CUP PEG SCH ×3 (05:44→22:01)
[2017-06-12] MEDS: ENOXAPARIN SODIUM 30 MG/0.3 ML SYRINGE SQ SCH (05:44)
[2017-06-12] MEDS: SENNOSIDES 8.6 MG TAB PO PRN (05:45)
[2017-06-12] MEDS: LEVOTHYROXINE SODIUM 100 MCG TAB PEG SCH (05:45)
[2017-06-12] MEDS: MIDODRINE 5 MG TAB PO SCH ×3 (06:04→16:59)
[2017-06-12 06:07] LABS: BICARBONATE 26.8 MEQ/L (21.0-32.0); CALCIUM 8.4 MG/DL (8.5-10.1); CREATININE 0.34 MG/DL (0.50-1.00); MAGNESIUM 2.5 MG/DL (1.5-2.5)
[2017-06-12] MEDS ORDERED: MIDODRINE 5 MG TAB PO SCH (07:00)
[2017-06-12] MEDS: RESP: ALBUTEROL 2.5 MG/3 ML NEB (PRN) NEB ×3 (07:37→20:08)
[2017-06-12] MEDS: LANSOPRAZOLE SOLUTAB 30 MG TAB PEG SCH (08:20)
[2017-06-12] MEDS: DOCUSATE SODIUM 50 MG/SENNA 8.6 MG TAB PO SCH ×2 (08:20→21:00)
[2017-06-12] MEDS: MULTIVITAMINS/MINERALS THERAPEUTIC TAB PEG SCH (08:20)
[2017-06-12] MEDS: LISINOPRIL 5 MG TAB PO SCH (08:20)
[2017-06-12] MEDS: CLOPIDOGREL 75 MG TAB PEG SCH (08:20)
[2017-06-12] MEDS: DIVALPROEX SODIUM SPRINKLES 125 MG CAP G-TUBE SCH ×2 (08:20→21:59)
[2017-06-12] MEDS: SPIRONOLACTONE 25 MG TAB PEG SCH (08:20)
[2017-06-12] MEDS: CHLORHEXIDINE 0.12% (ORAL KIT) 15 ML CUP MT SCH ×2 (08:20→21:59)
[2017-06-12] MEDS: ASCORBIC ACID 500 MG TAB PEG SCH ×2 (08:20→22:00)
[2017-06-12] MEDS: FLUCONAZOLE 100 MG TAB PO SCH (08:20)
[2017-06-12] MEDS: MAGNESIUM HYDROXIDE SUSP 30 ML CUP PEG PRN (08:21)
[2017-06-12] MEDS: LACTULOSE SYRUP 20 GM/30 ML CUP PO PRN (08:21)
[2017-06-12] MEDS: SODIUM CHLORIDE 0.9% FLUSH 10 ML FLUSH IV FLUSH SCH ×3 (08:21→22:00)
--- NOTE | 2017-06-12 08:28 | HHI.PR ---
Subjective Remarks More alert this am, on Cpap. Possible extubation today. Objective Vital Signs Date Time Temp Pulse Resp B/P (MAP) Pulse Ox O2 Delivery O2 Flow Rate FiO2 06/12/17 07:39 100 35 06/12/17 06:00 72 06/12/17 04:00 35 06/12/17 04:00 98.1 67 24 116/62 (80) 99 06/12/17 04:00 67 06/12/17 03:51 100 35 06/12/17 02:00 73 06/12/17 00:00 98.4 80 20 117/56 (76) 100 06/12/17 00:00 35 06/12/17 00:00 80 06/11/17 23:58 100 35 06/11/17 22:00 80 06/11/17 20:33 99 35 06/11/17 20:18 97 161/72 06/11/17 20:00 98.6 92 31 121/58 (79) 97 06/11/17 20:00 35 06/11/17 20:00 92 06/11/17 19:30 91 151/67 06/11/17 18:00 80 06/11/17 17:00 78 06/11/17 16:04 100 35 06/11/17 16:00 97.4 74 20 104/51 (68) 100 06/11/17 16:00 74 06/11/17 16:00 35 06/11/17 14:00 67 06/11/17 12:00 73 06/11/17 12:00 97.6 73 22 109/49 (69) 100 06/11/17 12:00 35 06/11/17 10:22 100 35 06/11/17 10:00 79 I/O 06/11/17 06/11/17 06/11/17 06/12/17 06/12/17 06/12/17 06:59 14:59 22:59 06:59 14:59 22:59 Intake Total 1236.9 ml 1003 ml 939 ml Output Total 600 ml 1200 ml 800 ml Balance 636.9 ml -197 ml 139 ml IV Total 579.9 ml 350 ml 100 ml Tube Feeding 607 ml 653 ml 739 ml Other 50 ml 100 ml Output Urine Total 600 ml 1200 ml 800 ml # Bowel Movements 0 0 0 Result Diagram: 06/12/17 0500 06/12/17 0500 Imaging Last 24 hours Impressions Chest X-Ray 06/12/17 0600 Signed Impressions: Service Date/Time: Monday, June 12, 2017 03:39 - CONCLUSION: Underinflated and rotated examination without an acute abnormality identified. Overall, stable exam. Werner Moncada MD Objective Remarks Objective Remarks HEENT ETT in place on a vent, Oropharynx moist mucosa. Resp -Diminished on ventilation support CV - RRR GI-PEG in place and without apparent tenderness. BS are active MS - contractures of extremities again noted Neuro- Alert, GARCIA, does not follow commands Medications and IVs Current Medications Medications (Trade) Dose Ordered Sig/Db Route Start Time Stop Time Status Last Admin (Vitamin C) 500 mg BID PEG 06/01/17 09:00 06/11/17 20:21 (Plavix) 75 mg DAILY PEG 06/01/17 09:00 06/11/17 08:21 (Lac-Hydrin 12% Lotion) 1 applic BID TOPICAL 06/01/17 09:00 06/11/17 20:23 (Prevacid Odt) 30 mg DAILY PEG 06/01/17 09:00 06/11/17 08:21 (Milk Of Magnesia Liq) 30 ml HS PRN PEG 06/01/17 06:00 06/11/17 11:28 (Lopressor) 50 mg BID PEG 06/01/17 09:00 Future Hold 06/07/17 20:13 (Remeron) 15 mg HS PEG 06/01/17 21:00 06/11/17 20:21 (Pravachol) 10 mg HS PEG 06/01/17 21:00 Future Hold 06/08/17 20:58 (Aldactone) 25 mg DAILY PEG 06/01/17 09:00 06/11/17 08:21 (Theragran M Tab) 1 tab DAILY PEG 06/01/17 09:00 06/11/17 08:21 (NS Flush) 2 ml UNSCH PRN IV FLUSH 06/01/17 06:00 (NS Flush) 2 ml BID IV FLUSH 06/01/17 09:00 06/11/17 20:22 (Tylenol 650 Mg/ 20 ml Liq) 650 mg Q4H PRN PEG 06/01/17 06:30 (Lovenox Inj) 30 mg Q24H SQ 06/01/17 06:00 06/12/17 05:44 (Narcan Inj) 0.4 mg UNSCH PRN IV PUSH 06/01/17 06:00 (Peggy-Colace) 1 tab BID PO 06/01/17 09:00 06/11/17 20:21 (Milk Of Magnesia Liq) 30 ml Q12H PRN PO 06/01/17 06:00 (Senokot) 17.2 mg Q12H PRN PO 06/01/17 06:00 06/12/17 05:45 (Dulcolax Supp) 10 mg DAILY PRN RECTAL 06/01/17 06:00 (Lactulose Liq) 30 ml DAILY PRN PO 06/01/17 06:00 06/11/17 11:28 (Depakote Sprinkles) 250 mg BID G-TUBE 06/01/17 21:00 06/11/17 20:21 (Diflucan) 100 mg DAILY PO 06/03/17 16:30 06/11/17 08:23 (Mycostatin Liq) 5 ml QID SWISH-SWAL 06/03/17 18:00 06/11/17 20:21 (Prinivil) 5 mg DAILY PO 06/05/17 09:00 06/06/17 09:09 (D50w (Vial) Inj) 50 ml UNSCH PRN IV PUSH 06/07/17 04:00 (Glucagon Inj) 1 mg UNSCH PRN OTHER 06/07/17 04:00 (Peridex 0.12% Liq) 15 ml BID@08,20 MT 06/07/17 20:00 06/11/17 20:23 Propofol 100 ml @ 1.89 mls/hr TITRATE PRN IV 06/07/17 11:00 Future Hold 06/07/17 14:00 Fentanyl Citrate 250 ml @ 5 mls/hr TITRATE PRN IV 06/07/17 11:15 Future Hold 06/08/17 10:35 (Albuterol Neb) 2.5 mg Q2HR NEB PRN NEB 06/07/17 11:15 06/12/17 07:37 (NS Flush) DAILY IV FLUSH 06/08/17 09:00 06/11/17 09:00 (NS Flush) UNSCH PRN IV FLUSH 06/07/17 12:00 (Robitussin Liq) 400 mg Q8HR PEG 06/07/17 14:00 06/12/17 05:44 (Sodium Chloride 3% Neb) 2 ml Q6HR NEB NEB 06/07/17 16:00 06/14/17 15:59 06/12/17 07:37 Meropenem 1000 mg/ Sodium Chloride 100 ml @ 200 mls/hr Q8H IV 06/07/17 15:00 06/12/17 05:45 Norepinephrine Bitartrate 4 mg/ Sodium Chloride 254 ml @ 7.62 mls/hr TITRATE PRN IV 06/07/17 20:00 06/10/17 18:22 (Synthroid) 200 mcg DAILY@0600 PEG 06/08/17 06:00 06/12/17 05:45 Miscellaneous Information Patient in critical care unit? Ass... Q361D .XX 06/07/17 21:00 06/07/17 21:00 (Chlorhexidine 2% Cloth) 3 pack UNSCH PRN TOPICAL 06/07/17 21:00 06/12/17 20:58 (Miguel Angel Powder) 1 pack BID G-TUBE 06/08/17 21:00 06/11/17 21:00 Pharmacy Profile Note 0 ml @ 0 mls/hr UNSCH OTHER 06/09/17 11:45 Midazolam HCl 100 ml @ 2 mls/hr TITRATE PRN IV 06/09/17 12:30 06/10/17 00:31 Vancomycin HCl 1000 mg/Sodium Chloride 250 ml @ 250 mls/hr Q12HR IV 06/12/17 09:00 Miscellaneous Information SPECIFIC LAB TO BE MATILDA... ONCE ONCE .XX 06/13/17 08:45 06/13/17 08:46 (Proamatine) 10 mg TID@07,12,17 PO 06/12/17 07:00 06/12/17 06:04 Assessment and Plan Problem List: (1) Respiratory failure ICD Codes: J96.90 - Respiratory failure, unspecified, unspecified whether with hypoxia or hypercapnia Plan: She has been tolerating Cpap, possible extubation today. (2) ESBL (extended spectrum beta-lactamase) producing bacteria infection ICD Codes: A49.9 - Bacterial infection, unspecified; Z16.12 - Extended spectrum beta lactamase (ESBL) resistance Plan: Infectious disease on case continue antibiotics per ID (3) Sacral decubitus ulcer ICD Codes: L89.159 - Pressure ulcer of sacral region, unspecified stage Status: Acute Plan: wound care Following, order for calcium alginate q3 days r/t patient cooperation Assessment and Plan Palliative care following multiple Family dynamics Patient remains Full code Problem Qualifiers (1) Sacral decubitus ulcer: Qualified Codes: L89.154 - Pressure ulcer of sacral region, stage 4 Joyce Smith Jun 12, 2017 08:28
[2017-06-12] MEDS: LACTIC ACID (AMMONIUM LACTATE) 12% LOTION 225 GM BTL TOPICAL SCH ×2 (09:00→22:01)
[2017-06-12] MEDS: JUVEN POWDER 1 PACK G-TUBE SCH ×2 (09:00→21:00)
[2017-06-12] MEDS ORDERED: VANCOMYCIN 1,000 MG/NS 250 ML IV SCH ×2 (09:00)
[2017-06-12] MEDS: NYSTATIN SUSP 500,000 U/5 ML CUP SWISH-SWAL SCH ×4 (09:00→22:00)
--- NOTE | 2017-06-12 11:13 | HHI.HCPN ---
Reason for visit a. To assist with evaluation and management of symptoms including: Dyspnea, agitation b. To assist medical decision maker(s) with: better understanding of current medical conditions; weighing benefits/burdens of medical treatment options; making medical treatment decisions. Subjective/Interval History Pt more alert, open eyes, does not follow commands, remains intubated and sedated. On cpap trials. Possible medical extubation today. Family/friend interactions Finally able to reach pt's other son Troy Corona yesterday, and updated him on pt's condition yesterday. He says he is POA, but he understood that without documents, he alone could not be sole decision maker. This morning we are able to obtain the documents and confirm he is POA for health care. He tends to be reachable in the afternoon. I have called and left him a voicemail, awaiting his call back to review goals of care.. Advance Directives Living Will: Completed, but not made available Health Care Surrogate: Copy in medical record Durable Power of Radius Grinder: Copy in medical record Objective Vital Signs Date Time Temp Pulse Resp B/P (MAP) Pulse Ox O2 Delivery O2 Flow Rate FiO2 06/12/17 07:39 100 35 06/12/17 06:00 72 06/12/17 04:00 35 06/12/17 04:00 98.1 67 24 116/62 (80) 99 06/12/17 04:00 67 06/12/17 03:51 100 35 06/12/17 02:00 73 06/12/17 00:00 98.4 80 20 117/56 (76) 100 06/12/17 00:00 35 06/12/17 00:00 80 06/11/17 23:58 100 35 06/11/17 22:00 80 06/11/17 20:33 99 35 06/11/17 20:18 97 161/72 06/11/17 20:00 98.6 92 31 121/58 (79) 97 06/11/17 20:00 35 06/11/17 20:00 92 06/11/17 19:30 91 151/67 06/11/17 18:00 80 06/11/17 17:00 78 06/11/17 16:04 100 35 06/11/17 16:00 97.4 74 20 104/51 (68) 100 06/11/17 16:00 74 06/11/17 16:00 35 06/11/17 14:00 67 06/11/17 12:00 73 06/11/17 12:00 97.6 73 22 109/49 (69) 100 06/11/17 12:00 35 Intake & Output 06/12/17 06/12/17 07:00 19:00 Intake Total 1189 ml Output Total 800 ml Balance 389 ml IV Total 350 ml Tube Feeding 739 ml Other 100 ml Output Urine Total 800 ml # Bowel Movements 0 Physical Exam CONSTITUTIONAL/GENERAL: This is a thin, frail elderly female, restless on mechanical vent, more alert. TUBES/LINES/DRAINS: IJ central line, peripheral IV upper extremity, soft restraints, ET tube, OG tube, PEG tube. Frederick catheter. SKIN: Reported sacral wound not visualized. Small pressure ulcerations visible to lateral and medial surfaces of feet and leg. HEAD: Atraumatic. Normocephalic. EYES: Pupils equal and round and reactive. Extraocular motions intact. No scleral icterus. No injection or drainage. Fundi not examined. ENT: Nose without bleeding or purulent drainage. ET tube, OG tube unable to visualize oropharynx. NECK: Trachea midline. Supple, nontender. CARDIOVASCULAR: Regular rate and rhythm no murmur. No JVD. Peripheral pulses faint. RESPIRATORY/CHEST: Symmetric, unlabored respirations. Clear to auscultation. Breath sounds equal bilaterally. No wheezes, rales, or rhonchi. GASTROINTESTINAL: Abdomen soft, flat, non-tender, nondistended. No palpable masses. + G-tube clamped no symptoms of problem. Bowel sounds present. GENITOURINARY: Without palpable bladder distension. Frederick catheter in place. MUSCULOSKELETAL: Extremities without clubbing, cyanosis, or edema. Lower extremities drawn up, contracted. NEUROLOGICAL: Awake and alert. On mechanical vent. Moving upper extremities well, lower extremities minimally move. She is sticking out tongue biting ET tube. She does not follow commands. Eyes are open appears to track. PSYCHIATRIC: calm Diagnostic Tests Laboratory Laboratory Tests Test 06/10/17 05:29 06/10/17 06:00 06/10/17 07:32 06/11/17 04:20 Blood Gas Puncture Site RT RADIAL LT RADIAL Blood Gas Patient Temperature 98.6 98.6 Blood Gas HCO3 20 mmol/L (22-26) 21 mmol/L (22-26) Blood Gas Base Excess -2.4 mmol/L (-2-2) -2.7 mmol/L (-2-2) Blood Gas Oxygen Saturation 97 % (90-100) 96 % (90-100) Arterial Blood pH 7.56 (7.380-7.420) 7.44 (7.380-7.420) Arterial Blood Partial Pressure CO2 22 mmHg (38-42) 31 mmHg (38-42) Arterial Blood Partial Pressure O2 105 mmHg (61-120) 123 mmHg (61-120) Arterial Blood Oxygen Content 13.2 Vol % (12.0-20.0) 12.9 Vol % (12.0-20.0) Arterial Blood Carboxyhemoglobin 1.1 % (0-4) 1.0 % (0-4) Arterial Blood Methemoglobin 0.9 % (0-2) 1.0 % (0-2) Blood Gas Hemoglobin 9.6 G/DL (12.0-16.0) 9.4 G/DL (12.0-16.0) Oxygen Delivery Device VENTILATOR VENTILATOR Blood Gas Ventilator Setting AC16/600/5PEEP AC/RR14/VT500/PEEP8 Blood Gas Inspired Oxygen 35 % 35 % White Blood Count 10.2 TH/MM3 (4.0-11.0) 12.6 TH/MM3 (4.0-11.0) Red Blood Count 3.22 MIL/MM3 (4.00-5.30) 3.12 MIL/MM3 (4.00-5.30) Hemoglobin 9.5 GM/DL (11.6-15.3) 9.1 GM/DL (11.6-15.3) Hematocrit 28.2 % (35.0-46.0) 27.7 % (35.0-46.0) Mean Corpuscular Volume 87.6 FL (80.0-100.0) 89.0 FL (80.0-100.0) Mean Corpuscular Hemoglobin 29.6 PG (27.0-34.0) 29.2 PG (27.0-34.0) Mean Corpuscular Hemoglobin Concent 33.7 % (32.0-36.0) 32.9 % (32.0-36.0) Red Cell Distribution Width 18.5 % (11.6-17.2) 18.7 % (11.6-17.2) Platelet Count 328 TH/MM3 (150-450) 313 TH/MM3 (150-450) Mean Platelet Volume 7.6 FL (7.0-11.0) 8.0 FL (7.0-11.0) Neutrophils (%) (Auto) 71.7 % (16.0-70.0) 73.4 % (16.0-70.0) Lymphocytes (%) (Auto) 12.4 % (9.0-44.0) 11.6 % (9.0-44.0) Monocytes (%) (Auto) 12.3 % (0.0-8.0) 12.4 % (0.0-8.0) Eosinophils (%) (Auto) 3.0 % (0.0-4.0) 2.0 % (0.0-4.0) Basophils (%) (Auto) 0.6 % (0.0-2.0) 0.6 % (0.0-2.0) Neutrophils # (Auto) 7.3 TH/MM3 (1.8-7.7) 9.3 TH/MM3 (1.8-7.7) Lymphocytes # (Auto) 1.3 TH/MM3 (1.0-4.8) 1.5 TH/MM3 (1.0-4.8) Monocytes # (Auto) 1.3 TH/MM3 (0-0.9) 1.6 TH/MM3 (0-0.9) Eosinophils # (Auto) 0.3 TH/MM3 (0-0.4) 0.3 TH/MM3 (0-0.4) Basophils # (Auto) 0.1 TH/MM3 (0-0.2) 0.1 TH/MM3 (0-0.2) CBC Comment DIFF FINAL DIFF FINAL Differential Comment Blood Urea Nitrogen 8 MG/DL (7-18) 15 MG/DL (7-18) Creatinine 0.44 MG/DL (0.50-1.00) 0.46 MG/DL (0.50-1.00) Random Glucose 96 MG/DL (74-106) 134 MG/DL (74-106) Total Protein 5.5 GM/DL (6.4-8.2) 5.6 GM/DL (6.4-8.2) Albumin 1.7 GM/DL (3.4-5.0) 1.6 GM/DL (3.4-5.0) Calcium Level 8.3 MG/DL (8.5-10.1) 8.4 MG/DL (8.5-10.1) Phosphorus Level 2.4 MG/DL (2.5-4.9) Magnesium Level 2.2 MG/DL (1.5-2.5) Alkaline Phosphatase 328 U/L (45-117) 283 U/L (45-117) Aspartate Amino Transf (AST/SGOT) 69 U/L (15-37) 33 U/L (15-37) Alanine Aminotransferase (ALT/SGPT) 88 U/L (10-53) 62 U/L (10-53) Total Bilirubin 0.3 MG/DL (0.2-1.0) 0.3 MG/DL (0.2-1.0) Direct Bilirubin 0.2 MG/DL (0.0-0.2) Sodium Level 142 MEQ/L (136-145) 142 MEQ/L (136-145) Potassium Level 4.0 MEQ/L (3.5-5.1) 4.3 MEQ/L (3.5-5.1) Chloride Level 112 MEQ/L (98-107) 113 MEQ/L (98-107) Carbon Dioxide Level 23.4 MEQ/L (21.0-32.0) 24.4 MEQ/L (21.0-32.0) Anion Gap 7 MEQ/L (5-15) 5 MEQ/L (5-15) Estimat Glomerular Filtration Rate 136 ML/MIN (>89) 129 ML/MIN (>89) Test 06/11/17 20:15 06/12/17 05:00 Vancomycin Level Trough 12.5 MCG/ML (5.0-10.0) White Blood Count 9.2 TH/MM3 (4.0-11.0) Red Blood Count 2.65 MIL/MM3 (4.00-5.30) Hemoglobin 8.1 GM/DL (11.6-15.3) Hematocrit 23.7 % (35.0-46.0) Mean Corpuscular Volume 89.5 FL (80.0-100.0) Mean Corpuscular Hemoglobin 30.4 PG (27.0-34.0) Mean Corpuscular Hemoglobin Concent 33.9 % (32.0-36.0) Red Cell Distribution Width 18.9 % (11.6-17.2) Platelet Count 264 TH/MM3 (150-450) Mean Platelet Volume 8.0 FL (7.0-11.0) Blood Urea Nitrogen 16 MG/DL (7-18) Creatinine 0.34 MG/DL (0.50-1.00) Random Glucose 116 MG/DL (74-106) Calcium Level 8.4 MG/DL (8.5-10.1) Phosphorus Level 2.0 MG/DL (2.5-4.9) Magnesium Level 2.5 MG/DL (1.5-2.5) Sodium Level 143 MEQ/L (136-145) Potassium Level 4.5 MEQ/L (3.5-5.1) Chloride Level 111 MEQ/L (98-107) Carbon Dioxide Level 26.8 MEQ/L (21.0-32.0) Anion Gap 5 MEQ/L (5-15) Estimat Glomerular Filtration Rate 183 ML/MIN (>89) Result Diagram: 06/12/17 0500 06/12/17 0500 Microbiology Microbiology Date/Time Source Procedure Growth Status 06/09/17 14:25 Blood Peripheral Aerobic Blood Culture - Preliminary NO GROWTH IN 2 DAYS Resulted 06/09/17 14:25 Blood Peripheral Anaerobic Blood Culture - Preliminary NO GROWTH IN 2 DAYS Resulted 06/09/17 11:45 Blood Line Aerobic Blood Culture - Preliminary NO GROWTH IN 2 DAYS Resulted 06/09/17 11:45 Blood Line Anaerobic Blood Culture - Preliminary NO GROWTH IN 2 DAYS Resulted Imaging Last Impressions Chest X-Ray 06/12/17 0600 Signed Impressions: Service Date/Time: Monday, June 12, 2017 03:39 - CONCLUSION: Underinflated and rotated examination without an acute abnormality identified. Overall, stable exam. Werner Moncada MD Abdomen X-Ray 06/07/17 0000 Signed Impressions: Service Date/Time: Wednesday, June 07, 2017 12:57 - CONCLUSION: Contrast is noted within the stomach. Kristopher Poole MD Procedures =3/2 intubation, central line RT IJ = bronchoscopy Assessment and Plan Disease Oriented Problem List: (1) BipolarII (2) Sacral decubitus ulcer (3) Malnutrition (4) ESBL (extended spectrum beta-lactamase) producing bacteria infection (5) HTN (hypertension) (6) Respiratory failure (7) Dislodged gastrostomy tube Symptom Scale: (1) Dyspnea 0-10 Scale: Unable to quantify (2) Pain 0-10 Scale: Unable to quantify (3) Agitation 0-10 Scale: Unable to quantify Pertinent Non-Medical Issues Psychosocial: Pt is and in total has 6 children. In order of age below: Douglas Pop (has mental retardation). Troy Corona (who I just spoke to). Luis Fernando Corona (who has been refusing my call today). Lucy Corona ( [place]) Jann Corona (past away). We do not have contact information besides Troy Corona and Luis Fernando Corona. Spiritual: Denominational Legal: POA is Troy Suffield. He is in [place], and accepted role to continue to serve of POA. Luis Fernando Suffield is local son, but is not the POA. Important Contacts Troy Corona (POA) [phone]/ Luis Fernando Corona [phone] or [phone]/ son Has hung up on palliative care x 2. He is not the POA Prognosis This patient was admitted for cough, shortness of breath. She has advanced dementia, she has had recurrent hospitalizations for infections and complications. She is bedbound and contracted. She had worsening respiratory distress today requiring intubation. Possible with prolonged aggressive interventions she might recover from a current acute episode, though she is very debilitated and high risk for further complications , setbacks and . She is appropriate for hospice if goals compatible. . Code Status: Full Code Plan * Legal decision maker: Troy Suffield, paper work was received which confirms Troy's legal status as medical decision maker. * Capacity- pt does not capacity to make medical decisions. * Goals: In the past only Luis Fernando Corona has been reachable and goals of care has been aggressive, had revoked hospice in the past. Finally able to reach pt's other son Troy Corona yesterday, and updated him on pt's condition yesterday. He says he is POA, but he understood that without documents, he alone could not be sole decision maker. This morning we are able to obtain the documents and confirm he is POA for health care. He tends to be reachable in the afternoon. I have called and left him a voicemail,x2, once in am and once in pm. has not called back. * CODE STATUS: Remains Full Code awaiting for callback from Troy Corona. * SYMPTOMS: --Dyspnea -admitted for cough, shortness of breath. Emergently intubated 06/07 for worsening respiratory status. On ventilator, possible medical extubation. --Pain- large sacral decubitus ulcer, chronic. Potential source of pain. Chronic bedbound status, contractures other potential sources of pain. No new med rec. --Agitation- per review of EMR patient with history of agitation and confusion, striking at caregivers and facility, given underlying history of dementia, intubation, and acute infectious processes, at risk for agitation/ anxiety; require sedation for ventilator comfort * Palliative care will continue to follow during hospital course as condition evolves, to assist patient/decision-maker with understanding of medical conditions, weighing benefits/burdens of treatment options, for clarification of goals of treatment. Additionally will assist with any symptoms of palliative concern. I am concern currently that Luis Fernando, the only reachable decision maker is refusing to speak with palliative care. He has hung up on me x 2. . Attestation To help prompt me to consider important information that might be impacting today's encounter and assessment, information from prior notes written by myself or my colleagues may have been "brought forward" into today's note. My signature on this note, however, is an attestation that I personally performed the exam, history, and/or decision-making noted today, and, unless otherwise indicated, the interactions with patient, family, and staff as well as the review of records all occurred today. I also attest that the listed assessment and stated plan reflect my best clinical judgment today based on the combination of historical information, prior notes, and today's exam/ interactions. When time spent is documented, it refers only to time spent today by the signer, or if indicated, combined time spent today by collaborating physician/nurse practitioner. Cortes Quinteros MD Jun 12, 2017 11:13
--- NOTE | 2017-06-12 12:42 | HHI.IDPN ---
Note Infectious Disease Note Patient is on CPAP. She is awake. No distress. Afebrile. No significant secretions. WBC improved. Bronchoscopy culture showed normal jaky. Patient was transferred to [facility] because of respiratory distress. 86-year-old white female who was brought to the emergency department from a care home facility. The patient apparently had respiratory symptoms with coughing. She has been on IV antibiotics for possible pneumonia. She also is noted to have a decubitus sacral ulceration. She has an indwelling Frederick catheter. The patient is severely demented. PAST MEDICAL HISTORY 1. Urinary tract infection 2. Hypothyroidism, 3. Dementia, 4. Bipolar disorder, 5. Schizophrenia 6. PEG placement 7. Total abdominal hysterectomy. ALLERGIES SULFA ASPIRIN CELECOXIB HALOPERIDOL RESPERIDONE CHLORPROMAZINE. ANTIBIOTICS: Meropenem. Vancomycin. OBJECTIVE: Vital Signs Date Time Temp Pulse Resp B/P (MAP) Pulse Ox O2 Delivery O2 Flow Rate FiO2 06/12/17 07:39 100 35 06/12/17 06:00 72 06/12/17 04:00 35 06/12/17 04:00 98.1 67 24 116/62 (80) 99 06/12/17 04:00 67 06/12/17 03:51 100 35 06/12/17 02:00 73 06/12/17 00:00 98.4 80 20 117/56 (76) 100 06/12/17 00:00 35 06/12/17 00:00 80 06/11/17 23:58 100 35 06/11/17 22:00 80 06/11/17 20:33 99 35 06/11/17 20:18 97 161/72 06/11/17 20:00 98.6 92 31 121/58 (79) 97 06/11/17 20:00 35 06/11/17 20:00 92 06/11/17 19:30 91 151/67 06/11/17 18:00 80 06/11/17 17:00 78 06/11/17 16:04 100 35 06/11/17 16:00 97.4 74 20 104/51 (68) 100 06/11/17 16:00 74 06/11/17 16:00 35 06/11/17 14:00 67 Laboratory Tests Test 06/11/17 04:20 06/12/17 05:00 White Blood Count 12.6 TH/MM3 9.2 TH/MM3 Red Blood Count 3.12 MIL/MM3 2.65 MIL/MM3 Hemoglobin 9.1 GM/DL 8.1 GM/DL Hematocrit 27.7 % 23.7 % Mean Corpuscular Volume 89.0 FL 89.5 FL Mean Corpuscular Hemoglobin 29.2 PG 30.4 PG Mean Corpuscular Hemoglobin Concent 32.9 % 33.9 % Red Cell Distribution Width 18.7 % 18.9 % Platelet Count 313 TH/MM3 264 TH/MM3 Mean Platelet Volume 8.0 FL 8.0 FL Neutrophils (%) (Auto) 73.4 % Lymphocytes (%) (Auto) 11.6 % Monocytes (%) (Auto) 12.4 % Eosinophils (%) (Auto) 2.0 % Basophils (%) (Auto) 0.6 % Neutrophils # (Auto) 9.3 TH/MM3 Lymphocytes # (Auto) 1.5 TH/MM3 Monocytes # (Auto) 1.6 TH/MM3 Eosinophils # (Auto) 0.3 TH/MM3 Basophils # (Auto) 0.1 TH/MM3 CBC Comment DIFF FINAL Differential Comment Laboratory Tests Test 06/11/17 04:20 06/12/17 05:00 Blood Urea Nitrogen 15 MG/DL 16 MG/DL Creatinine 0.46 MG/DL 0.34 MG/DL Random Glucose 134 MG/DL 116 MG/DL Total Protein 5.6 GM/DL Albumin 1.6 GM/DL Calcium Level 8.4 MG/DL 8.4 MG/DL Alkaline Phosphatase 283 U/L Aspartate Amino Transf (AST/SGOT) 33 U/L Alanine Aminotransferase (ALT/SGPT) 62 U/L Total Bilirubin 0.3 MG/DL Sodium Level 142 MEQ/L 143 MEQ/L Potassium Level 4.3 MEQ/L 4.5 MEQ/L Chloride Level 113 MEQ/L 111 MEQ/L Carbon Dioxide Level 24.4 MEQ/L 26.8 MEQ/L Anion Gap 5 MEQ/L 5 MEQ/L Estimat Glomerular Filtration Rate 129 ML/MIN 183 ML/MIN Phosphorus Level 2.0 MG/DL Magnesium Level 2.5 MG/DL Microbiology Date/Time Source Procedure Growth Status 06/09/17 14:25 Blood Peripheral Aerobic Blood Culture - Preliminary NO GROWTH IN 3 DAYS Resulted 06/09/17 14:25 Blood Peripheral Anaerobic Blood Culture - Preliminary NO GROWTH IN 3 DAYS Resulted Microbiology Date/Time Source Procedure Growth Status 06/09/17 14:25 Blood Peripheral Aerobic Blood Culture - Preliminary NO GROWTH IN 2 DAYS Resulted 06/09/17 14:25 Blood Peripheral Anaerobic Blood Culture - Preliminary NO GROWTH IN 2 DAYS Resulted 06/09/17 11:45 Blood Line Aerobic Blood Culture - Preliminary NO GROWTH IN 2 DAYS Resulted 06/09/17 11:45 Blood Line Anaerobic Blood Culture - Preliminary NO GROWTH IN 2 DAYS Resulted IMAGING: Chest X-Ray 06/12/17 0600 Signed Impressions: Service Date/Time: Monday, June 12, 2017 03:39 - CONCLUSION: Underinflated and rotated examination without an acute abnormality identified. Overall, stable exam. Werner Moncada MD Chest X-Ray 06/11/17 0600 Signed Impressions: Service Date/Time: Sunday, June 11, 2017 05:07 - CONCLUSION: Mild bibasilar opacity most likely representing atelectasis. Otherwise, no acute finding is appreciated given the technique. Werner Moncada MD Chest X-Ray 06/10/17 0600 Signed Impressions: Service Date/Time: Saturday, June 10, 2017 04:12 - CONCLUSION: 1. Stable left basilar opacity likely representing pleural effusion with associated volume loss and/or airspace consolidation. 2. Endotracheal tube distal tip now measures 2.6 cm from the montserrat. Werner Moncada MD Abdomen X-Ray 06/07/17 0000 Signed Impressions: Service Date/Time: Wednesday, June 07, 2017 12:57 - CONCLUSION: Contrast is noted within the stomach. Kristopher Poole MD PHYSICAL EXAMINATION GENERAL: Sedated. On the ventilator. HEENT: Extraocular movements are grossly intact, pupils reactive to light. No icterus. Oropharynx moist mucosa. NECK: Supple. LUNGS: Decreased breath sounds. No rhonchi. HEART: Regular S1 and S2. No audible murmur. ABDOMEN: Bowel sounds present, soft. EXTREMITIES: No clubbing or cyanosis, no edema. Contractures of the lower extremities. NEUROLOGIC: Unable to assess. PSYCHIATRIC: Unable to assess. IMPRESSION 1. Acute respiratory failure. Right lower lobe infiltrate from mucous plugging. Aspiration pneumonia. HCAP. 2. Urinary tract infection due to ESBL E-coli. 3. Severe dementia. RECOMMENDATIONS 1. Continue meropenem for pulmonary coverage 2. Stop vancomycin. 3. Monitor clinical status. Discussed with patient's son at bedside. Stevenson Mcneill MD Jun 12, 2017 12:42
--- NOTE | 2017-06-12 20:35 | HHI.CCPN ---
Subjective Remarks/Hospital Course This is an 86-year-old female. Date of admission 06/01/2017. Date of consultation 06/07/2017. 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 She was diagnosed with a urinary tract infection.. She had a stage IV sacral decubitus ulcer 11 x 7 cm in wound care with infectious disease was consulted to evaluate that aspect of her care. Patient was treated with ertapenem form BSL positive E. coli urinary tract infection/Pseudomonas UTI and stage IV sacral decubitus ulcer. Last night, patient became confused and pulled out her PEG tube. This morning she had an acute decline in respiratory status including hypoxia and hypercapnia. Chest x- ray revealed left lower lobe infiltrate versus mucous plugging. A rapid response team was called the patient was transferred on 522. Upon my arrival, patient was tachypneic with saturations in the low 80s. Patient was emergently intubated/fiberoptic bronchoscopy was performed emergently as able to to contact son and central line placed due to extremely poor IV access. Subjective 3/4: Afebrile. FiO2 to 30%. We will wean PEEP to 5. Oxygenating much better at the present time. Arousable on the ventilator. Sticks out her tongue. 3/4: He is on Levophed currently at 6 Mr./min, patient decreased significantly currently on Versed 3 mg/hour. LFTs notably significantly elevated today pravastatin placed on hold. Leukocytosis resolving. 3/5:Afebrile. FIO2 .40%, PEEP 8 . Continues to require vasopressor support. 3/6: Patient intermittently on vasopressor support will begin Midodrine. Patient tolerated CPAP trials greater than 8 hours. 7: Late entry note. Patient remained on CPAP throughout the night now greater than 24 hours. Sedation has been discontinued, patient remains hemodynamically stable. Extensive discussion with the healthcare proxy Troy Corona regarding trial of extubation and possible reintubation. Plan for conference with palliative care as son does not want reintubation if the patient is extubated and decompensates and has also stated that he would like at that time of extubation to place patient hold status to DNR. Will consult with palliative care team for further discussion and determine the goals of care. Presently the patient continues full code while intubated and on CPAP trials. Objective Vital Signs Date Time Temp Pulse Resp B/P (MAP) Pulse Ox O2 Delivery O2 Flow Rate FiO2 06/12/17 18:00 68 06/12/17 16:00 35 06/12/17 16:00 2 118/58 (78) 98 06/12/17 04:00 98.1 06/08/17 07:00 Mechanical Ventilator Intake and Output 06/12/17 06/12/17 06/13/17 08:00 16:00 00:00 Intake Total 939 ml 693 ml Output Total 800 ml 800 ml Balance 139 ml -107 ml Result Diagram: 06/12/17 0500 06/12/17 0500 Imaging Last Impressions Chest X-Ray 06/11/17 06 Signed Impressions: Service Date/Time: Sunday, June 11, 2017 05:07 - CONCLUSION: Mild bibasilar opacity most likely representing atelectasis. Otherwise, no acute finding is appreciated given the technique. Werner Moncada MD Abdomen X-Ray 06/07/17 0000 Signed Impressions: Service Date/Time: Wednesday, June 07, 2017 12:57 - CONCLUSION: Contrast is noted within the stomach. Kristopher Poole MD Last Impressions Chest X-Ray 06/10/17 06 Signed Impressions: Service Date/Time: Saturday, June 10, 2017 04:12 - CONCLUSION: 1. Stable left basilar opacity likely representing pleural effusion with associated volume loss and/or airspace consolidation. 2. Endotracheal tube distal tip now measures 2.6 cm from the montserrat. Werner Moncada MD Abdomen X-Ray 06/07/17 0000 Signed Impressions: Service Date/Time: Wednesday, June 07, 2017 12:57 - CONCLUSION: Contrast is noted within the stomach. Kristopher Poole MD Last Impressions Chest X-Ray 06/09/17 06 Signed Impressions: Service Date/Time: Friday, June 09, 2017 03:56 - CONCLUSION: 1. ET tube tip convex at the right main bronchus and needs to be withdrawn 2 cm. 2. Persistent left lower lobe consolidation. Ang Booth MD Abdomen X-Ray 06/07/17 0000 Signed Impressions: Service Date/Time: Wednesday, June 07, 2017 12:57 - CONCLUSION: Contrast is noted within the stomach. Kristopher Poole MD Last Impressions Chest X-Ray 06/07/17 1157 Signed Impressions: Service Date/Time: Wednesday, June 07, 2017 12:24 - CONCLUSION: Line in good position. Consolidative changes left base.. Celestine Ritter MD FACR Abdomen X-Ray 06/07/17 0000 Signed Impressions: Service Date/Time: Wednesday, June 07, 2017 12:57 - CONCLUSION: Contrast is noted within the stomach. Kristopher Poole MD Objective Remarks GENERAL: 86-year-old female currently orotracheally intubated, spontaneous eye opening SKIN: Warm and dry. Stage IV sacral decubitus ulcer 11 x 7 cm, 2 lateral foot 2 x 1 cm stage II ulcers HEAD: Atraumatic. Normocephalic. EYES: Pupils equal and round about 3 mm bilaterally and reactive. No scleral icterus. No injection or drainage. ENT: No nasal bleeding or discharge. Mucous membranes pink and moist. NECK: Trachea midline. No JVD. CARDIOVASCULAR: Regular rate and rhythm. S1, S2. No S4. RESPIRATORY: Diminished breath sounds involving the left lower lobe. No wheezing. GASTROINTESTINAL: Abdomen soft, non-tender, nondistended. PEG tube insitu left upper quadrant. No bleeding is appreciated MUSCULOSKELETAL: Extremities without significant peripheral edema. Patient appears to be alexia the bilateral upper extremities and lower extremities NEUROLOGICAL: Currently orotracheally intubated. Positive gag and corneal reflex. Moving all 4 extremities spontaneously but not to command. Date of Insertion: Jun 07, 2017 Line: Central Venous Catheter Side: Right Location: Internal, Jugular A/P Assessment and Plan Neuro/Psych: Dementia disorder NOS Bipolar disorder Schizophrenia disorder NOS Acute toxic metabolic encephalopathy secondary hypoxia Seizure disorder NOS Hard of hearing 3/6 sedation discontinued Acetaminophen 650 mg by PEG every 6 hours as needed fever Currently on Depakote 250 mg by tube twice daily. Currently on mirtazapine 15 mg at night. Continue CV: Hypertension Dyslipidemia Atherosclerotic vascular disease Currently on D5 normal saline at 75 cc an hour discontinued 0600 06/09 Currently norepinephrine to maintain mean arterial pressure greater than equal to 65- 3/6 Will begin Midodrine Metoprolol succinate 50 mg by PEG twice daily/home medication will be held in light of bradycardia Lisinopril 5 mg daily will be held in light of hypertension Spironolactone 25 mg p.o. daily has been held Continue clopidogrel bisulfate 75 mg daily for peripheral vascular disease Continue pravastatin 10 mg p.o. daily for dyslipidemia Pravastatin placed on hold in the setting of elevated liver enzymes- beginning to downtrend Resp: Acute respiratory failure secondary to left lower lobe pneumonia and mucous plugging ACV 16/500/8/30 Ventilator bundle Albuterol/ipratropium aerosols every 6 hours with albuterol aerosols every 2 hours as needed dyspnea Hypertonic saline aerosols every 6 hours for 7 days as mucolytic Guaifenesin liquid 400 mg every 8 hours Spontaneous breathing trials as tolerated Status post bronchoscopy 06/07. Please see note GI: Self removal of PEG tube Gastroesophageal reflux disease History of esophageal dilatation/dislocation Status post PEG tube placement Constipation NG tube has been placed while intubated. Okay to remove. PEG tube replaced by Dr. Baker/GI at bedside. Gastrografin confirms placement. Jevity 1.5 goal 55 cc/h per dietary recommendations Omeprazole 30 mg by PEG for GI prophylaxis Docusate sodium/senna 100 mg/8.6 mg 1 tablet by PEG twice daily for bowel regimen : Recurrent urinary tract infections Frederick catheter has been placed for accurate I's and O's in a critically ill patient Endo: Hypothyroidism History of thyroidectomy Novulog sliding scale insulin with Accu-Cheks every 6 hours to maintain euglycemia Currently on levothyroxine 100 mcg daily. Increase to 200 mcg daily. Recheck TSH in 1 week ordered. Noted no IV L levothyroxine available at this facility except for emergent situations. Resting instructed to provide levothyroxine in a NPO status, at least 1 hour prior to administration TSH was 88. Renal: Creatinine currently within normal limits Monitor urine output Accurate I's and O's Heme: CBC currently within normal limits Currently on enoxaparin 30 mg subcu daily for DVT prophylaxis ID: E. coli ESBL positive/Pseudomonas urinary tract infection Sacral decubitus ulcer Leukocytosis Currently on meropenem day #4. Switch from ertapenem on 06/07 Currently on fluconazole 100 mg by tube daily for thrush with nystatin swish and spit Followed by infectious disease/Dr. Mcneill Pertinent cultures 06/06 -BAL --gram-positive cocci in pairs. 06/05 -urine -Pseudomonas 06/01 -urine -ESBL positive E. coli/pseudomonas MSK: Generalized debilitation PT evaluate and treat FEN: Hypophosphatemia Replace electrolytes as clinically indicated 15 mmol sodium/IV 1 now. Recheck in a.m. Access -Utilize right IJ CVL day #5 placed 06/07 Prophylaxis -GI -omeprazole -DVT -SCD/enoxaparin Critical Care: Level 3 followup 06/12-planned discussion with Palliative Care team and BRANDON Corona Physician Robina Houston MD Jun 12, 2017 20:35
[2017-06-12] MEDS: MIRTAZAPINE 15 MG TAB PEG SCH (22:00)
[2017-06-13] VITALS (22 sets, daily range): BP systolic 103–174; BP diastolic 50–136; PULSE 69–103; RESP 19–55; TEMP 98.9–99; O2SAT 91–100
[2017-06-13] MEDS: RESP: ALBUTEROL 2.5 MG/3 ML NEB (PRN) NEB ×3 (01:44→15:52)
[2017-06-13] MEDS: RESP: SODIUM CHLORIDE 3% 4 ML NEB NEB SCH ×4 (01:44→21:16)
--- NOTE | 2017-06-13 04:45 | RADRPT ---
EXAM DATE/TIME: 06/13/2017 03:48 [facility] COMPARISON: CHEST SINGLE AP, June 12, 2017, 3:39. INDICATIONS : Shortness of breath, possible pulmonary disease. MEDICAL HISTORY : Hypertension. Gastroesophageal reflux disease. Hiatal hernia. CVA A-Fib SURGICAL HISTORY : Appendectomy. Hysterectomy. ENCOUNTER: Subsequent ACUITY: 2 weeks PAIN SCORE: 0/10 LOCATION: Bilateral chest FINDINGS: Portable AP view of the chest demonstrates a normal-sized cardiac silhouette. Patient is rotated and underinflated. There is mild motion artifact. Endotracheal tube distal tip measures approximately 1.9 cm from the montserrat. There is mild bibasilar opacity, most likely representing atelectasis. No pleura l effusion or pneumothorax is identified. Patient's chin partially obscures the left lung apex. CONCLUSION: Underinflation with likely atelectasis at the lung bases. Otherwise, no acute finding is identified g iven the technique. Werner Moncada MD on June 13, 2017 at 4:42 Board Certified Radiologist. This report was verified electronically.
[2017-06-13] MEDS: guaiFENesin SOLUTION 200 MG/10 ML CUP PEG SCH ×3 (05:13→20:48)
[2017-06-13] MEDS: MIDODRINE 5 MG TAB PO SCH ×3 (05:13→17:44)
[2017-06-13] MEDS: LEVOTHYROXINE SODIUM 100 MCG TAB PEG SCH (05:13)
[2017-06-13] MEDS: ENOXAPARIN SODIUM 30 MG/0.3 ML SYRINGE SQ SCH (05:13)
[2017-06-13] MEDS: MEROPENEM INJ 1,000 MG in SODIUM CHLORIDE 0.9% INJ 100 ML IV SCH ×3 (05:14→23:05)
[2017-06-13 06:06] LABS: HEMATOCRIT 22.8 % (35.0-46.0); HEMOGLOBIN 7.6 GM/DL (11.6-15.3); MEAN CELL VOLUME 89.3 FL (80.0-100.0); MEAN CORPUSCULAR HEMOGLOBIN 29.7 PG (27.0-34.0); MEAN CORPUSCULAR HGB CONC 33.3 % (32.0-36.0); MEAN PLATELET VOLUME 8.2 FL (7.0-11.0); PLATELET COUNT 280 TH/MM3 (150-450); RED BLOOD COUNT 2.55 MIL/MM3 (4.00-5.30); RED CELL DISTRIBUTION WIDTH 18.4 % (11.6-17.2); WHITE BLOOD COUNT 8.6 TH/MM3 (4.0-11.0)
[2017-06-13 06:21] LABS: BICARBONATE 28.8 MEQ/L (21.0-32.0); CALCIUM 8.4 MG/DL (8.5-10.1); CREATININE 0.4 MG/DL (0.50-1.00); MAGNESIUM 2.3 MG/DL (1.5-2.5); PHOSPHORUS 1.6 MG/DL (2.5-4.9)
[2017-06-13] MEDS: MULTIVITAMINS/MINERALS THERAPEUTIC TAB PEG SCH (08:39)
[2017-06-13] MEDS: LANSOPRAZOLE SOLUTAB 30 MG TAB PEG SCH (08:39)
[2017-06-13] MEDS: CLOPIDOGREL 75 MG TAB PEG SCH (08:39)
[2017-06-13] MEDS: ASCORBIC ACID 500 MG TAB PEG SCH ×2 (08:39→20:47)
[2017-06-13] MEDS: FLUCONAZOLE 100 MG TAB PO SCH (08:40)
[2017-06-13] MEDS: DOCUSATE SODIUM 50 MG/SENNA 8.6 MG TAB PO SCH ×2 (08:40→20:47)
[2017-06-13] MEDS: SODIUM CHLORIDE 0.9% FLUSH 10 ML FLUSH IV FLUSH SCH ×3 (08:40→20:47)
[2017-06-13] MEDS: NYSTATIN SUSP 500,000 U/5 ML CUP SWISH-SWAL SCH ×4 (08:40→20:48)
[2017-06-13] MEDS: LISINOPRIL 5 MG TAB PO SCH (08:40)
[2017-06-13] MEDS: LACTIC ACID (AMMONIUM LACTATE) 12% LOTION 225 GM BTL TOPICAL SCH ×2 (08:40→20:48)
[2017-06-13] MEDS: DIVALPROEX SODIUM SPRINKLES 125 MG CAP G-TUBE SCH ×2 (08:40→20:46)
[2017-06-13] MEDS: SPIRONOLACTONE 25 MG TAB PEG SCH (08:40)
[2017-06-13] MEDS: JUVEN POWDER 1 PACK G-TUBE SCH ×2 (08:41→20:46)
[2017-06-13] MEDS: CHLORHEXIDINE 0.12% (ORAL KIT) 15 ML CUP MT SCH ×2 (08:41→20:45)
[2017-06-13] MEDS ORDERED: PHARMACY ORDERED LAB ONE (08:45)
--- NOTE | 2017-06-13 12:48 | HHI.CCPN ---
Subjective Remarks/Hospital Course This is an 86-year-old female. Date of admission 06/01/2017. Date of consultation 06/07/2017. 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 She was diagnosed with a urinary tract infection.. She had a stage IV sacral decubitus ulcer 11 x 7 cm in wound care with infectious disease was consulted to evaluate that aspect of her care. Patient was treated with ertapenem form BSL positive E. coli urinary tract infection/Pseudomonas UTI and stage IV sacral decubitus ulcer. Last night, patient became confused and pulled out her PEG tube. This morning she had an acute decline in respiratory status including hypoxia and hypercapnia. Chest x- ray revealed left lower lobe infiltrate versus mucous plugging. A rapid response team was called the patient was transferred on 522. Upon my arrival, patient was tachypneic with saturations in the low 80s. Patient was emergently intubated/fiberoptic bronchoscopy was performed emergently as able to to contact son and central line placed due to extremely poor IV access. Subjective 3/4: Afebrile. FiO2 to 30%. We will wean PEEP to 5. Oxygenating much better at the present time. Arousable on the ventilator. Sticks out her tongue. 3/4: He is on Levophed currently at 6 Mr./min, patient decreased significantly currently on Versed 3 mg/hour. LFTs notably significantly elevated today pravastatin placed on hold. Leukocytosis resolving. 3/5:Afebrile. FIO2 .40%, PEEP 8 . Continues to require vasopressor support. 3/6: Patient intermittently on vasopressor support will begin Midodrine. Patient tolerated CPAP trials greater than 8 hours. 7: Late entry note. Patient remained on CPAP throughout the night now greater than 24 hours. Sedation has been discontinued, patient remains hemodynamically stable. Extensive discussion with the healthcare proxy Troy Corona regarding trial of extubation and possible reintubation. Plan for conference with palliative care as son does not want reintubation if the patient is extubated and decompensates and has also stated that he would like at that time of extubation to place patient hold status to DNR. Will consult with palliative care team for further discussion and determine the goals of care. Presently the patient continues full code while intubated and on CPAP trials. 06/13: Afebrile. No acute changes overnight the patient remains on CPAP trials. No sedation appears comfortable. Patient noted to have low phosphate level currently being repleted. Discussed with Dr. Cardona planned meeting with POA today or tomorrow for clarification regarding trial of extubation and defining goals of care. Objective Vital Signs Date Time Temp Pulse Resp B/P (MAP) Pulse Ox O2 Delivery O2 Flow Rate FiO2 06/13/17 10:00 75 23 94 06/13/17 08:33 165/77 (106) 06/13/17 08:00 35 06/13/17 04:00 98.9 Intake and Output 06/13/17 06/13/17 06/14/17 08:00 16:00 00:00 Intake Total 898 ml Output Total 850 ml Balance 48 ml Result Diagram: 06/13/17 0505 06/13/17 0505 Imaging Last Impressions Chest X-Ray 06/11/17 06 Signed Impressions: Service Date/Time: Sunday, June 11, 2017 05:07 - CONCLUSION: Mild bibasilar opacity most likely representing atelectasis. Otherwise, no acute finding is appreciated given the technique. Werner Moncada MD Abdomen X-Ray 06/07/17 0000 Signed Impressions: Service Date/Time: Wednesday, June 07, 2017 12:57 - CONCLUSION: Contrast is noted within the stomach. Kristopher Poole MD Last Impressions Chest X-Ray 06/10/17 0600 Signed Impressions: Service Date/Time: Saturday, June 10, 2017 04:12 - CONCLUSION: 1. Stable left basilar opacity likely representing pleural effusion with associated volume loss and/or airspace consolidation. 2. Endotracheal tube distal tip now measures 2.6 cm from the montserrat. Werner Moncada MD Abdomen X-Ray 06/07/17 0000 Signed Impressions: Service Date/Time: Wednesday, June 07, 2017 12:57 - CONCLUSION: Contrast is noted within the stomach. Kristopher Poole MD Last Impressions Chest X-Ray 06/09/17 0600 Signed Impressions: Service Date/Time: Friday, June 09, 2017 03:56 - CONCLUSION: 1. ET tube tip convex at the right main bronchus and needs to be withdrawn 2 cm. 2. Persistent left lower lobe consolidation. Ang Booth MD Abdomen X-Ray 06/07/17 0000 Signed Impressions: Service Date/Time: Wednesday, June 07, 2017 12:57 - CONCLUSION: Contrast is noted within the stomach. Kristopher Poole MD Last Impressions Chest X-Ray 06/07/17 1157 Signed Impressions: Service Date/Time: Wednesday, June 07, 2017 12:24 - CONCLUSION: Line in good position. Consolidative changes left base.. Celestine Ritter MD FACR Abdomen X-Ray 06/07/17 0000 Signed Impressions: Service Date/Time: Wednesday, June 07, 2017 12:57 - CONCLUSION: Contrast is noted within the stomach. Kristopher Poole MD Objective Remarks GENERAL: 86-year-old female currently orotracheally intubated, spontaneous eye opening SKIN: Warm and dry. Stage IV sacral decubitus ulcer 11 x 7 cm, 2 lateral foot 2 x 1 cm stage II ulcers HEAD: Atraumatic. Normocephalic. EYES: Pupils equal and round about 3 mm bilaterally and reactive. No scleral icterus. No injection or drainage. ENT: No nasal bleeding or discharge. Mucous membranes pink and moist. NECK: Trachea midline. No JVD. CARDIOVASCULAR: Regular rate and rhythm. S1, S2. No S4. RESPIRATORY: Diminished breath sounds involving the left lower lobe. No wheezing. GASTROINTESTINAL: Abdomen soft, non-tender, nondistended. PEG tube insitu left upper quadrant. No bleeding is appreciated MUSCULOSKELETAL: Extremities without significant peripheral edema. Patient appears to be alexia the bilateral upper extremities and lower extremities NEUROLOGICAL: Currently orotracheally intubated. Positive gag and corneal reflex. Moving all 4 extremities spontaneously but not to command. Date of Insertion: Jun 07, 2017 Line: Central Venous Catheter Side: Right Location: Internal, Jugular A/P Assessment and Plan Neuro/Psych: Dementia disorder NOS Bipolar disorder Schizophrenia disorder NOS Acute toxic metabolic encephalopathy secondary hypoxia Seizure disorder NOS Hard of hearing 3/6 sedation discontinued Acetaminophen 650 mg by PEG every 6 hours as needed fever Currently on Depakote 250 mg by tube twice daily. Currently on mirtazapine 15 mg at night. Continue CV: Hypertension Dyslipidemia Atherosclerotic vascular disease Currently on D5 normal saline at 75 cc an hour discontinued 0600 06/09 Currently norepinephrine to maintain mean arterial pressure greater than equal to 65- 06/11 Will begin Midodrine Metoprolol succinate 50 mg by PEG twice daily/home medication will be held in light of bradycardia Lisinopril 5 mg daily will be held in light of hypertension Spironolactone 25 mg p.o. daily has been held Continue clopidogrel bisulfate 75 mg daily for peripheral vascular disease Continue pravastatin 10 mg p.o. daily for dyslipidemia Pravastatin placed on hold in the setting of elevated liver enzymes- beginning to downtrend Resp: Acute respiratory failure secondary to left lower lobe pneumonia and mucous plugging ACV 16/500/12/05 Ventilator bundle Albuterol/ipratropium aerosols every 6 hours with albuterol aerosols every 2 hours as needed dyspnea Hypertonic saline aerosols every 6 hours for 7 days as mucolytic Guaifenesin liquid 400 mg every 8 hours Spontaneous breathing trials as tolerated Status post bronchoscopy 06/07. Please see note Plan for SBT trial in am and possibly trial of extubation GI: Self removal of PEG tube Gastroesophageal reflux disease History of esophageal dilatation/dislocation Status post PEG tube placement Constipation PEG tube replaced by Dr. Baker/GI at bedside. Gastrografin confirms placement. Jevity 1.5 goal 55 cc/h per dietary recommendations Omeprazole 30 mg by PEG for GI prophylaxis Docusate sodium/senna 100 mg/8.6 mg 1 tablet by PEG twice daily for bowel regimen : Recurrent urinary tract infections Frederick catheter has been placed for accurate I's and O's in a critically ill patient Endo: Hypothyroidism History of thyroidectomy Novulog sliding scale insulin with Accu-Cheks every 6 hours to maintain euglycemia Currently on levothyroxine 100 mcg daily. Increase to 200 mcg daily. Recheck TSH in 1 week ordered. Noted no IV L levothyroxine available at this facility except for emergent situations. Resting instructed to provide levothyroxine in a NPO status, at least 1 hour prior to administration TSH was 88. Renal: Creatinine currently within normal limits Monitor urine output Accurate I's and O's Heme: CBC currently within normal limits Currently on enoxaparin 30 mg subcu daily for DVT prophylaxis ID: E. coli ESBL positive/Pseudomonas urinary tract infection Sacral decubitus ulcer Leukocytosis Currently on meropenem day #4. Switch from ertapenem on 06/07 Currently on fluconazole 100 mg by tube daily for thrush with nystatin swish and spit Followed by infectious disease/Dr. Mcneill Pertinent cultures 06/06 -BAL --gram-positive cocci in pairs. 06/05 -urine -Pseudomonas 06/01 -urine -ESBL positive E. coli/pseudomonas MSK: Generalized debilitation PT evaluate and treat FEN: Electrolyte derangement Replace electrolytes as clinically indicated Na Phos 15 mmol sodium/IV 1 now. Recheck in a.m. Access -Utilize right IJ CVL day #6 placed 06/07 Prophylaxis -GI -omeprazole -DVT -SCD/enoxaparin Critical Care: Level 3 followup 06/12-Extensive discussion with Palliative Care , Dr. Quinteros and BRANDON Corona. The patient remains on a full CODE STATUS while intubated. Per Mr. Uriarte plan after trial of extubation is to transfer convert status to DNR upon my conversation with him last evening. He stated he does not want the endotracheal tube replaced at the patient decompensates post extubation and would like DNR status and comfort measures. Physician Robina Houston MD Jun 13, 2017 12:48
[2017-06-13] MEDS ORDERED: SODIUM PHOSPHATE INJ 15 MMOL in SODIUM CHLORIDE 0.9% INJ 150 ML IV ONE (13:00)
--- NOTE | 2017-06-13 13:03 | HHI.HCPN ---
Reason for visit a. To assist with evaluation and management of symptoms including: Dyspnea, agitation b. To assist medical decision maker(s) with: better understanding of current medical conditions; weighing benefits/burdens of medical treatment options; making medical treatment decisions. Subjective/Interval History Pt more alert, open eyes, does not follow commands, remains intubated. Family/friend interactions I was able to speak with Mr. Troy Corona, inform family about medical extubation. Plan will be for extubation tomorrow. Review her medical condition, deconditioning and the possible need for reintubation. Discussed trach. Mr. Troy Corona, reconfimrmed for me as he has discussed with Dr. Paris that if we medically extubate tomorrow, we can change the code status to DNR/DNI , he does not want further reintubation/ acls/ compression or shock should pt not do well or cold not tolerate. Son did express continue aggressive medical treatment short of DNR/DNI. Advance Directives Living Will: Completed, but not made available Health Care Surrogate: Copy in medical record Durable Power of Health Spa Manager: Copy in medical record Objective Vital Signs Date Time Temp Pulse Resp B/P (MAP) Pulse Ox O2 Delivery O2 Flow Rate FiO2 06/13/17 10:00 75 23 94 06/13/17 08:33 98 55 165/77 (106) 96 06/13/17 08:30 103 37 174/136 (149) 97 06/13/17 08:15 88 29 113/56 (75) 95 06/13/17 08:00 71 20 103/50 (67) 98 06/13/17 08:00 35 06/13/17 08:00 98 35 06/13/17 06:00 70 06/13/17 04:00 75 06/13/17 04:00 98 35 06/13/17 04:00 35 06/13/17 04:00 98.9 75 19 108/52 (70) 98 06/13/17 02:00 69 06/13/17 00:10 97 35 06/13/17 00:00 98.9 78 20 129/50 (76) 97 06/13/17 00:00 78 06/13/17 00:00 35 06/12/17 22:00 73 06/12/17 20:10 100 35 06/12/17 20:00 98.5 64 19 102/53 (69) 97 06/12/17 20:00 64 06/12/17 20:00 35 06/12/17 18:00 68 06/12/17 16:15 75 06/12/17 16:00 35 06/12/17 16:00 75 06/12/17 16:00 75 2 118/58 (78) 98 06/12/17 15:34 99 35 06/12/17 15:00 82 06/12/17 14:45 87 06/12/17 14:30 83 06/12/17 14:16 73 06/12/17 14:00 75 Intake & Output 06/13/17 06/13/17 07:00 19:00 Intake Total 898 ml Output Total 850 ml Balance 48 ml IV Total 200 ml Tube Feeding 638 ml Other 60 ml Output Urine Total 850 ml # Bowel Movements 2 Physical Exam CONSTITUTIONAL/GENERAL: This is a thin, frail elderly female, restless on mechanical vent, alert confused TUBES/LINES/DRAINS: IJ central line, peripheral IV upper extremity, soft restraints, ET tube, OG tube, PEG tube. Frederick catheter. SKIN: Reported sacral wound not visualized. Small pressure ulcerations visible to lateral and medial surfaces of feet and leg. HEAD: Atraumatic. Normocephalic. EYES: Pupils equal and round and reactive. Extraocular motions intact. No scleral icterus. No injection or drainage. Fundi not examined. ENT: Nose without bleeding or purulent drainage. ET tube, OG tube unable to visualize oropharynx. NECK: Trachea midline. Supple, nontender. CARDIOVASCULAR: Regular rate and rhythm no murmur. No JVD. Peripheral pulses faint. RESPIRATORY/CHEST: Symmetric, unlabored respirations. Clear to auscultation. Breath sounds equal bilaterally. No wheezes, rales, or rhonchi. GASTROINTESTINAL: Abdomen soft, flat, non-tender, nondistended. No palpable masses. + G-tube clamped no symptoms of problem. Bowel sounds present. GENITOURINARY: Without palpable bladder distension. Frederick catheter in place. MUSCULOSKELETAL: Extremities without clubbing, cyanosis, or edema. Lower extremities drawn up, contracted. NEUROLOGICAL: Awake and alert. On mechanical vent. Moving upper extremities well, lower extremities minimally move. She does not follow commands. Eyes are open appears to track. PSYCHIATRIC: calm Diagnostic Tests Laboratory Laboratory Tests Test 06/11/17 04:20 06/11/17 20:15 06/12/17 05:00 06/13/17 05:05 White Blood Count 12.6 TH/MM3 (4.0-11.0) 9.2 TH/MM3 (4.0-11.0) 8.6 TH/MM3 (4.0-11.0) Red Blood Count 3.12 MIL/MM3 (4.00-5.30) 2.65 MIL/MM3 (4.00-5.30) 2.55 MIL/MM3 (4.00-5.30) Hemoglobin 9.1 GM/DL (11.6-15.3) 8.1 GM/DL (11.6-15.3) 7.6 GM/DL (11.6-15.3) Hematocrit 27.7 % (35.0-46.0) 23.7 % (35.0-46.0) 22.8 % (35.0-46.0) Mean Corpuscular Volume 89.0 FL (80.0-100.0) 89.5 FL (80.0-100.0) 89.3 FL (80.0-100.0) Mean Corpuscular Hemoglobin 29.2 PG (27.0-34.0) 30.4 PG (27.0-34.0) 29.7 PG (27.0-34.0) Mean Corpuscular Hemoglobin Concent 32.9 % (32.0-36.0) 33.9 % (32.0-36.0) 33.3 % (32.0-36.0) Red Cell Distribution Width 18.7 % (11.6-17.2) 18.9 % (11.6-17.2) 18.4 % (11.6-17.2) Platelet Count 313 TH/MM3 (150-450) 264 TH/MM3 (150-450) 280 TH/MM3 (150-450) Mean Platelet Volume 8.0 FL (7.0-11.0) 8.0 FL (7.0-11.0) 8.2 FL (7.0-11.0) Neutrophils (%) (Auto) 73.4 % (16.0-70.0) Lymphocytes (%) (Auto) 11.6 % (9.0-44.0) Monocytes (%) (Auto) 12.4 % (0.0-8.0) Eosinophils (%) (Auto) 2.0 % (0.0-4.0) Basophils (%) (Auto) 0.6 % (0.0-2.0) Neutrophils # (Auto) 9.3 TH/MM3 (1.8-7.7) Lymphocytes # (Auto) 1.5 TH/MM3 (1.0-4.8) Monocytes # (Auto) 1.6 TH/MM3 (0-0.9) Eosinophils # (Auto) 0.3 TH/MM3 (0-0.4) Basophils # (Auto) 0.1 TH/MM3 (0-0.2) CBC Comment DIFF FINAL Differential Comment Blood Urea Nitrogen 15 MG/DL (7-18) 16 MG/DL (7-18) 24 MG/DL (7-18) Creatinine 0.46 MG/DL (0.50-1.00) 0.34 MG/DL (0.50-1.00) 0.40 MG/DL (0.50-1.00) Random Glucose 134 MG/DL (74-106) 116 MG/DL (74-106) 118 MG/DL (74-106) Total Protein 5.6 GM/DL (6.4-8.2) Albumin 1.6 GM/DL (3.4-5.0) Calcium Level 8.4 MG/DL (8.5-10.1) 8.4 MG/DL (8.5-10.1) 8.4 MG/DL (8.5-10.1) Alkaline Phosphatase 283 U/L (45-117) Aspartate Amino Transf (AST/SGOT) 33 U/L (15-37) Alanine Aminotransferase (ALT/SGPT) 62 U/L (10-53) Total Bilirubin 0.3 MG/DL (0.2-1.0) Sodium Level 142 MEQ/L (136-145) 143 MEQ/L (136-145) 140 MEQ/L (136-145) Potassium Level 4.3 MEQ/L (3.5-5.1) 4.5 MEQ/L (3.5-5.1) 4.5 MEQ/L (3.5-5.1) Chloride Level 113 MEQ/L (98-107) 111 MEQ/L (98-107) 107 MEQ/L (98-107) Carbon Dioxide Level 24.4 MEQ/L (21.0-32.0) 26.8 MEQ/L (21.0-32.0) 28.8 MEQ/L (21.0-32.0) Anion Gap 5 MEQ/L (5-15) 5 MEQ/L (5-15) 4 MEQ/L (5-15) Estimat Glomerular Filtration Rate 129 ML/MIN (>89) 183 ML/MIN (>89) 152 ML/MIN (>89) Vancomycin Level Trough 12.5 MCG/ML (5.0-10.0) Phosphorus Level 2.0 MG/DL (2.5-4.9) 1.6 MG/DL (2.5-4.9) Magnesium Level 2.5 MG/DL (1.5-2.5) 2.3 MG/DL (1.5-2.5) Result Diagram: 06/13/17 0505 06/13/17 0505 Procedures =3/2 intubation, central line RT IJ = bronchoscopy Assessment and Plan Disease Oriented Problem List: (1) BipolarII (2) Sacral decubitus ulcer (3) Malnutrition (4) ESBL (extended spectrum beta-lactamase) producing bacteria infection (5) HTN (hypertension) (6) Respiratory failure (7) Dislodged gastrostomy tube Symptom Scale: (1) Dyspnea 0-10 Scale: Unable to quantify (2) Pain 0-10 Scale: Unable to quantify (3) Agitation 0-10 Scale: Unable to quantify Pertinent Non-Medical Issues Psychosocial: Pt is and in total has 6 children. In order of age below: Douglas Pop (has mental retardation). Troy Corona (who I just spoke to). Luis Fernando Corona (who has been refusing my call today). Lucy Corona ( [place]) Jann Corona (past away). We do not have contact information besides Troy Corona and Luis Fernando Corona. Spiritual: Jew Legal: POA is Troy Corona. He is in [place], and accepted role to continue to serve of POA. Luis Fernando Corona is local son, but is not the POA. Important Contacts Troy Corona ([facility]) [phone]/ Luis Fernando Corona [phone] or [phone]/ son Has hung up on palliative care x 2. He is not the POA Prognosis This patient was admitted for cough, shortness of breath. She has advanced dementia, she has had recurrent hospitalizations for infections and complications. She is bedbound and contracted. She had worsening respiratory distress today requiring intubation. Possible with prolonged aggressive interventions she might recover from a current acute episode, though she is very debilitated and high risk for further complications , setbacks and . She is appropriate for hospice if goals compatible. . Code Status: Full Code Plan * Legal decision maker: Troy Corona, paper work was received which confirms Troy's legal status as medical decision maker. * Capacity- pt does not capacity to make medical decisions. * Goals:Mr. Troy Corona, reconfimrmed for me as he has discussed with Dr. Paris that if we medically extubate tomorrow, we can change the code status to DNR/DNI, he does not want further reintubation/ acls/ compression or shock should pt not do well or cold not tolerate. Son did express continue aggressive medical treatment short of DNR/DNI. * CODE STATUS: Remains Full Code tonight. Pt is expected to be medically extubated tomorrow, anticipate time is 9:30-10 am, we can change code status to DNR then. This reconfirms conversation Troy Corona had with Dr. Paris with Critical medicine. * SYMPTOMS: --Dyspnea -admitted for cough, shortness of breath. Emergently intubated 06/07 for worsening respiratory status. On ventilator, possible medical extubation. --Pain- large sacral decubitus ulcer, chronic. Potential source of pain. Chronic bedbound status, contractures other potential sources of pain. No new med rec. --Agitation- per review of EMR patient with history of agitation and confusion, striking at caregivers and facility, given underlying history of dementia, intubation, and acute infectious processes, at risk for agitation/ anxiety; require sedation for ventilator comfort * Palliative care will continue to follow during hospital course as condition evolves, to assist patient/decision-maker with understanding of medical conditions, weighing benefits/burdens of treatment options, for clarification of goals of treatment. Additionally will assist with any symptoms of palliative concern. . Attestation To help prompt me to consider important information that might be impacting today's encounter and assessment, information from prior notes written by myself or my colleagues may have been "brought forward" into today's note. My signature on this note, however, is an attestation that I personally performed the exam, history, and/or decision-making noted today, and, unless otherwise indicated, the interactions with patient, family, and staff as well as the review of records all occurred today. I also attest that the listed assessment and stated plan reflect my best clinical judgment today based on the combination of historical information, prior notes, and today's exam/ interactions. When time spent is documented, it refers only to time spent today by the signer, or if indicated, combined time spent today by collaborating physician/nurse practitioner. Cortes Quinteros MD Jun 13, 2017 13:02
--- NOTE | 2017-06-13 13:14 | HHI.IDPN ---
Note Infectious Disease Note Patient is on CPAP. She is awake and appears very alert. She is tracking with her eyes. No distress. Afebrile. No significant secretions. 86-year-old white female who was brought to the emergency department from a [place] [facility] facility. The patient apparently had respiratory symptoms with coughing. She has been on IV antibiotics for possible pneumonia. She also is noted to have a decubitus sacral ulceration. She has an indwelling Frederick catheter. The patient is severely demented. PAST MEDICAL HISTORY 1. Urinary tract infection 2. Hypothyroidism, 3. Dementia, 4. Bipolar disorder, 5. Schizophrenia 6. PEG placement 7. Total abdominal hysterectomy. ALLERGIES SULFA ASPIRIN CELECOXIB HALOPERIDOL RESPERIDONE CHLORPROMAZINE. ANTIBIOTICS: Meropenem. OBJECTIVE: Vital Signs Date Time Temp Pulse Resp B/P (MAP) Pulse Ox O2 Delivery O2 Flow Rate FiO2 06/13/17 13:04 98 35 06/13/17 10:00 75 23 94 06/13/17 08:33 98 55 165/77 (106) 96 06/13/17 08:30 103 37 174/136 (149) 97 06/13/17 08:15 88 29 113/56 (75) 95 06/13/17 08:00 71 20 103/50 (67) 98 06/13/17 08:00 35 06/13/17 08:00 98 35 06/13/17 06:00 70 06/13/17 04:00 75 06/13/17 04:00 98 35 06/13/17 04:00 35 06/13/17 04:00 98.9 75 19 108/52 (70) 98 06/13/17 02:00 69 06/13/17 00:10 97 35 06/13/17 00:00 98.9 78 20 129/50 (76) 97 06/13/17 00:00 78 06/13/17 00:00 35 06/12/17 22:00 73 06/12/17 20:10 100 35 06/12/17 20:00 98.5 64 19 102/53 (69) 97 06/12/17 20:00 64 06/12/17 20:00 35 06/12/17 18:00 68 06/12/17 16:15 75 06/12/17 16:00 35 06/12/17 16:00 75 06/12/17 16:00 75 2 118/58 (78) 98 06/12/17 15:34 99 35 06/12/17 15:00 82 06/12/17 14:45 87 06/12/17 14:30 83 06/12/17 14:16 73 06/12/17 14:00 75 Laboratory Tests Test 06/12/17 05:00 06/13/17 05:05 White Blood Count 9.2 TH/MM3 8.6 TH/MM3 Red Blood Count 2.65 MIL/MM3 2.55 MIL/MM3 Hemoglobin 8.1 GM/DL 7.6 GM/DL Hematocrit 23.7 % 22.8 % Mean Corpuscular Volume 89.5 FL 89.3 FL Mean Corpuscular Hemoglobin 30.4 PG 29.7 PG Mean Corpuscular Hemoglobin Concent 33.9 % 33.3 % Red Cell Distribution Width 18.9 % 18.4 % Platelet Count 264 TH/MM3 280 TH/MM3 Mean Platelet Volume 8.0 FL 8.2 FL Laboratory Tests Test 06/12/17 05:00 06/13/17 05:05 Blood Urea Nitrogen 16 MG/DL 24 MG/DL Creatinine 0.34 MG/DL 0.40 MG/DL Random Glucose 116 MG/DL 118 MG/DL Calcium Level 8.4 MG/DL 8.4 MG/DL Phosphorus Level 2.0 MG/DL 1.6 MG/DL Magnesium Level 2.5 MG/DL 2.3 MG/DL Sodium Level 143 MEQ/L 140 MEQ/L Potassium Level 4.5 MEQ/L 4.5 MEQ/L Chloride Level 111 MEQ/L 107 MEQ/L Carbon Dioxide Level 26.8 MEQ/L 28.8 MEQ/L Anion Gap 5 MEQ/L 4 MEQ/L Estimat Glomerular Filtration Rate 183 ML/MIN 152 ML/MIN Microbiology Date/Time Source Procedure Growth Status 06/09/17 14:25 Blood Peripheral Aerobic Blood Culture - Preliminary NO GROWTH IN 2 DAYS Resulted 06/09/17 14:25 Blood Peripheral Anaerobic Blood Culture - Preliminary NO GROWTH IN 2 DAYS Resulted 06/09/17 11:45 Blood Line Aerobic Blood Culture - Preliminary NO GROWTH IN 2 DAYS Resulted 06/09/17 11:45 Blood Line Anaerobic Blood Culture - Preliminary NO GROWTH IN 2 DAYS Resulted IMAGING: Chest X-Ray 06/13/17 0600 Signed Impressions: Service Date/Time: June 03:48 - CONCLUSION: Underinflation with likely atelectasis at the lung bases. Otherwise, no acute finding is identified given the technique. Werner Moncada MD Chest X-Ray 06/12/17 0600 Signed Impressions: Service Date/Time: Monday, June 12, 2017 03:39 - CONCLUSION: Underinflated and rotated examination without an acute abnormality identified. Overall, stable exam. Werner Moncada MD Chest X-Ray 06/11/17 06 Signed Impressions: Service Date/Time: Sunday, June 11, 2017 05:07 - CONCLUSION: Mild bibasilar opacity most likely representing atelectasis. Otherwise, no acute finding is appreciated given the technique. Werner Moncada MD Chest X-Ray 06/10/17 06 Signed Impressions: Service Date/Time: Saturday, June 10, 2017 04:12 - CONCLUSION: 1. Stable left basilar opacity likely representing pleural effusion with associated volume loss and/or airspace consolidation. 2. Endotracheal tube distal tip now measures 2.6 cm from the [place]. Werner Moncada MD Abdomen X-Ray 06/07/17 0000 Signed Impressions: Service Date/Time: Wednesday, June 07, 2017 12:57 - CONCLUSION: Contrast is noted within the stomach. Kristopher Poole MD PHYSICAL EXAMINATION GENERAL: Sedated. On the ventilator. HEENT: Extraocular movements are grossly intact, pupils reactive to light. No icterus. Oropharynx moist mucosa. NECK: Supple. LUNGS: Decreased breath sounds. No rhonchi. HEART: Regular S1 and S2. No audible murmur. ABDOMEN: Bowel sounds present, soft. EXTREMITIES: No clubbing or cyanosis, no edema. Contractures of the lower extremities. NEUROLOGIC: Unable to assess. PSYCHIATRIC: Unable to assess. IMPRESSION 1. Acute respiratory failure. Right lower lobe infiltrate from mucous plugging. Aspiration pneumonia. HCAP. 2. Urinary tract infection due to ESBL E-coli. 3. Severe dementia. RECOMMENDATIONS 1. Continue meropenem. 2. Monitor temperature and white blood cell count. 3. Monitor clinical status. Stevenson Mcneill MD Jun 13, 2017 13:14
[2017-06-13] MEDS ORDERED: LIDOCAINE 2% JELLY 30 ML TUBE TOPICAL PRN (16:45)
--- NOTE | 2017-06-13 17:04 | HHI.PR ---
Subjective Remarks remains intubated family declines all attempts at code status Objective Vital Signs Date Time Temp Pulse Resp B/P (MAP) Pulse Ox O2 Delivery O2 Flow Rate FiO2 06/13/17 16:00 35 06/13/17 16:00 83 06/13/17 16:00 83 19 97 06/13/17 15:56 96 35 06/13/17 14:06 83 06/13/17 14:06 83 25 139/63 (88) 99 06/13/17 14:02 91 06/13/17 14:02 91 29 135/100 (112) 99 06/13/17 14:00 79 25 98 06/13/17 14:00 79 06/13/17 13:04 98 35 06/13/17 12:00 79 06/13/17 12:00 79 24 100 06/13/17 12:00 35 06/13/17 10:00 75 06/13/17 10:00 75 23 94 06/13/17 08:33 98 55 165/77 (106) 96 06/13/17 08:33 98 06/13/17 08:30 103 37 174/136 (149) 97 06/13/17 08:30 103 06/13/17 08:15 88 06/13/17 08:15 88 29 113/56 (75) 95 06/13/17 08:00 71 20 103/50 (67) 98 06/13/17 08:00 71 06/13/17 08:00 35 06/13/17 08:00 98 35 06/13/17 06:00 70 06/13/17 04:00 75 06/13/17 04:00 98 35 06/13/17 04:00 35 06/13/17 04:00 98.9 75 19 108/52 (70) 98 06/13/17 02:00 69 06/13/17 00:10 97 35 06/13/17 00:00 98.9 78 20 129/50 (76) 97 06/13/17 00:00 78 06/13/17 00:00 35 06/12/17 22:00 73 06/12/17 20:10 100 35 06/12/17 20:00 98.5 64 19 102/53 (69) 97 06/12/17 20:00 64 06/12/17 20:00 35 06/12/17 18:00 68 I/O 06/12/17 06/12/17 06/12/17 06/13/17 06/13/17 06/13/17 07:00 15:00 23:00 07:00 15:00 23:00 Intake Total 939 ml 693 ml 898 ml Output Total 800 ml 800 ml 850 ml Balance 139 ml -107 ml 48 ml IV Total 100 ml 200 ml Tube Feeding 739 ml 573 ml 638 ml Other 100 ml 120 ml 60 ml Output Urine Total 800 ml 800 ml 850 ml # Bowel Movements 0 4 2 Result Diagram: 06/13/17 0505 06/13/17 0505 Imaging Last Impressions Chest X-Ray 06/13/17 0600 Signed Impressions: Service Date/Time: June 03:48 - CONCLUSION: Underinflation with likely atelectasis at the lung bases. Otherwise, no acute finding is identified given the technique. Werner Moncada MD Abdomen X-Ray 06/07/17 0000 Signed Impressions: Service Date/Time: Wednesday, June 07, 2017 12:57 - CONCLUSION: Contrast is noted within the stomach. Kristopher Poole MD Objective Remarks GENERAL:frail contracted intubated white female. SKIN: Warm and dry. HEAD: Normocephalic. EYES: No scleral icterus. No injection or drainage. NECK: Supple, trachea midline. No JVD or lymphadenopathy.intubated CARDIOVASCULAR: Regular rate and rhythm without murmurs, gallops, or rubs. RESPIRATORY: Breath sounds equal bilaterally. No accessory muscle use.decreased in bases few rhonchi present GASTROINTESTINAL: Abdomen soft, non-tender, nondistended. EXTREMITIES: No cyanosis, or edema. contracted NEUROLOGICAL: Awake, Non-focal. Medications and IVs Inpatient Medications Acetaminophen (Tylenol 650 Mg/ 20 ml Liq) 650 mg Q4H PRN PEG TEMP > 100.4; Start 06/01/17 at 06:30 Albuterol Sulfate (Albuterol Neb) 2.5 mg Q2HR NEB PRN NEB dyspnea Last administered on 06/13/17at 15:52; Start 06/07/17 at 11:15 Albuterol/ Ipratropium (Duoneb Neb) 1 ampule Q6HR NEB NEB Last administered on 06/11/17at 10:22; Start 06/07/17 at 16:00; Stop 06/11/17 at 15:59; Status DC Arginine HCl (Miguel Angel Powder) 1 pack BID G-TUBE Last administered on 06/13/17 08: 41; Start 06/08/17 at 21:00 Ascorbic Acid (Vitamin C) 500 mg BID PEG Last administered on 06/13/17 08:39; Start 06/01/17 at 09:00 Bisacodyl (Dulcolax Supp) 10 mg DAILY PRN RECTAL SEVERE CONSITIPATION; Start at 06:00 Cefepime HCl 2000 mg/Sodium Chloride 100 ml @ 200 mls/hr Q12H IV Last administered on 06/02/17 17:49; Start 06/01/17 at 18:00; Stop 06/02/17 at 20:48 ; Status DC Chlorhexidine Gluconate (Chlorhexidine 2% Cloth) 3 pack UNSCH PRN TOPICAL HYGIENIC CARE; Start 06/07/17 at 21:00; Stop 06/12/17 at 20:58; Status DC Chlorhexidine Gluconate (Peridex 0.12% Liq) 15 ml BID@08,20 MT Last administered on 06/13/17 08:41; Start 06/07/17 at 20:00 Clopidogrel Bisulfate (Plavix) 75 mg DAILY PEG Last administered on 06/13/17 08 :39; Start 06/01/17 at 09:00 Dextrose 1,000 ml @ 75 mls/hr [id number] IV ; Start 06/07/17 at 04:00; Stop at 04:27; Status DC Dextrose (D50w (Vial) Inj) 50 ml UNSCH PRN IV PUSH HYPOGLYCEMIA - SEE COMMENTS ; Start 06/07/17 at 04:00 Dextrose/Sodium Chloride 1,000 ml @ 75 mls/hr [id number] IV Last administered on 06/08/17at 20:58; Start 06/07/17 at 05:00; Stop 06/09/17 at 06:00; Status DC Divalproex Sodium (Depakote Sprinkles) 250 mg BID G-TUBE Last administered on 08:40; Start 06/01/17 at 21:00 Divalproex Sodium (Depakote Dr) 250 mg BID PO ; Start 06/01/17 at 09:00; Stop at 16:19; Status DC Enoxaparin Sodium (Lovenox Inj) 30 mg Q24H SQ Last administered on 06/13/17at 05: 13; Start 06/01/17 at 06:00 Ertapenem 1000 mg/ Sodium Chloride 100 ml @ 200 mls/hr Q24H IV Last administered on 06/06/17at 21:40; Start 06/02/17 at 21:00; Stop 06/07/17 at 14:49; Status DC Etomidate (Amidate Inj) 40 mg ONCE ONCE IV PUSH Last administered on 06/07/17at 11:15; Start 06/07/17 at 11:15; Stop 06/07/17 at 11:16; Status DC Fentanyl Citrate 250 ml @ 5 mls/hr TITRATE PRN IV SEDATION Last administered on 06/08/17at 10:35; Start 06/07/17 at 11:15; Status Future Hold Fluconazole (Diflucan) 100 mg DAILY PO Last administered on 06/13/17at 08:40; Start 06/03/17 at 16:30 Glucagon (Glucagon Inj) 1 mg UNSCH PRN OTHER HYPOGLYCEMIA-SEE COMMENTS; Start 06/07/17 at 04:00 Guaifenesin (Robitussin Liq) 400 mg Q8HR PEG Last administered on 06/13/17at 12: 41; Start 06/07/17 at 14:00 Influenza Virus Vaccine (Flu (Quadrivalent) Vaccine Inj) 0.5 ml ONCE ONCE IM Last administered on 06/04/17at 10:02; Start 06/04/17 at 10:00; Stop 06/04/17 at 10:01; Status DC Lactic Acid (Lac-Hydrin 12% Lotion) 1 applic BID TOPICAL Last administered on at 08:40; Start 06/01/17 at 09:00 Lactulose (Lactulose Liq) 30 ml DAILY PRN PO SEVERE CONSITIPATION Last administered on 06/12/17at 08:21; Start 06/01/17 at 06:00 Lansoprazole (Prevacid Odt) 30 mg DAILY PEG Last administered on 06/13/17at 08:39 ; Start 06/01/17 at 09:00 Levothyroxine Sodium (Synthroid) 200 mcg DAILY@0600 PEG Last administered on 06/13/17at 05:13; Start 06/08/17 at 06:00 Lidocaine HCl (Xylocaine 2% Jelly) 1 applic UNSCH PRN TOPICAL BEFORE DRESSING CHANGE; Start 06/13/17 at 16:45 Lisinopril (Prinivil) 5 mg DAILY PO Last administered on 06/13/17at 08:40; Start 06/05/17 at 09:00 Magnesium Hydroxide (Milk Of Magnesia Liq) 30 ml Q12H PRN PO Mild constipation ; Start 06/01/17 at 06:00 Meropenem 1000 mg/ Sodium Chloride 100 ml @ 200 mls/hr Q8H IV Last administered on 06/13/17at 15:11; Start 06/07/17 at 15:00 Metoprolol Tartrate (Lopressor) 50 mg BID PEG Last administered on 06/07/17at 20: 13; Start 06/01/17 at 09:00; Status Future Hold Midazolam HCl 100 ml @ 2 mls/hr TITRATE PRN IV SEDATION Last administered on 06/10/17at 00:31; Start 06/09/17 at 12:30 Midodrine (Proamatine) 10 mg TID@07,12,17 PO Last administered on 06/13/17at 12: 41; Start 06/12/17 at 07:00 Mirtazapine (Remeron) 15 mg HS PEG Last administered on 06/12/17at 22:00; Start 06/01/17 at 21:00 Miscellaneous Information SPECIFIC LAB TO BE DRAWN:va... ONCE ONCE .XX ; Start 06/11/17 at 19:45; Stop 06/11/17 at 19:46; Status DC Miscellaneous Information (RASS Change Order) 1 ea ONCE ONCE XX ; Start at 11:15; Stop 06/07/17 at 11:16; Status DC Miscellaneous Medication (ASP Crit: Doc ESBL, MDR A baumannii or P aer) 1 UNSCH X1 PRN .XX PHARMACY DOCUMENTATION; Start 06/07/17 at 14:45; Stop 06/08/17 at 14: 44; Status DC Miscellaneous Medication (Misc Pharmacy Information) 1 UNSCH X1 PRN XX PHARMACY DOCUMENTATION; Start 06/07/17 at 14:45; Stop 06/08/17 at 14:44; Status DC Multivitamins/ Minerals Therapeutic (Theragran M Tab) 1 tab DAILY PEG Last administered on 06/13/17at 08:39; Start 06/01/17 at 09:00 Mupirocin (Bactroban 2% Oint) 1 applic ONCE ONCE TOPICAL Last administered on 06/07/17 17:15; Start 06/07/17 at 15:00; Stop 06/07/17 at 15:01; Status DC Naloxone HCl (Narcan Inj) 0.4 mg UNSCH PRN IV PUSH SEE LABEL COMMENTS; Start at 06:00 Norepinephrine Bitartrate 250 ml @ 7.5 mls/hr TITRATE PRN IV Maintain MAP > 65 mmHg Last administered on 06/07/17at 14:00; Start 06/07/17 at 18:15; Stop at 20:00; Status DC Norepinephrine Bitartrate 4 mg/ Sodium Chloride 254 ml @ 7.62 mls/hr TITRATE PRN IV Maintain MAP > 65 mmHg Last administered on 06/10/17at 18:22; Start at 20:00 Nystatin (Mycostatin Liq) 5 ml QID SWISH-SWAL Last administered on 06/13/17at 12 :41; Start 06/03/17 at 18:00 Pharmacy Profile Note 0 ml @ 0 mls/hr UNSCH OTHER ; Start 06/09/17 at 11:45; Stop 06/12/17 at 12:44; Status DC Pravastatin Sodium (Pravachol) 10 mg HS PEG Last administered on 06/08/17at 20:58 ; Start 06/01/17 at 21:00; Status Future Hold Propofol 100 ml @ 1.89 mls/hr TITRATE PRN IV SEDATION Last administered on 06/07at 14:00; Start 06/07/17 at 11:00; Status Future Hold Rocuronium [place] (Zemuron Inj) 50 mg BOLUS ONCE IV ; Start 06/07/17 at 11:15; Stop 06/07/17 at 13:49; Status DC Senna/Docusate Sodium (Peggy-Colace) 1 tab BID PO Last administered on 06/13/17at 08:40; Start 06/01/17 at 09:00 Sennosides (Senokot) 17.2 mg Q12H PRN PO Moderate constipation Last administered on 06/12/17at 05:45; Start 06/01/17 at 06:00 Sodium Chloride (NS Flush) UNSCH PRN IV FLUSH SEE PROTOCOL; Start 06/07/17 at 12:00 Sodium Chloride (Sodium Chloride 3% Neb) 2 ml Q6HR NEB NEB Last administered on 06/13/17at 15:52; Start 06/07/17 at 16:00; Stop 06/14/17 at 15:59 Sodium Phosphate 15 mmol/Sodium Chloride 155 ml @ 38.75 mls/ hr ONCE ONCE IV Last administered on 06/13/17at 14:04; Start 06/13/17 at 13:00; Stop 06/13/17 at 16: 59; Status DC Spironolactone (Aldactone) 25 mg DAILY PEG Last administered on 06/13/17at 08:40 ; Start 06/01/17 at 09:00 Vancomycin HCl 1000 mg/Sodium Chloride 250 ml @ 250 mls/hr Q12HR IV Last administered on 06/12/17at 08:21; Start 06/12/17 at 09:00; Stop 06/12/17 at 12:44; Status DC Assessment and Plan Discussed Condition With nursing and family family resistant to change code status Discharge Planning [facility] Nicolas Monreal DO Jun 13, 2017 17:04
[2017-06-13] MEDS: MIRTAZAPINE 15 MG TAB PEG SCH (20:47)
[2017-06-14] VITALS (17 sets, daily range): BP systolic 125–164; BP diastolic 60–75; PULSE 71–90; RESP 10–26; TEMP 97.8–99.7; O2SAT 89–100
[2017-06-14] MEDS: RESP: SODIUM CHLORIDE 3% 4 ML NEB NEB SCH ×2 (03:49→14:44)
[2017-06-14] MEDS: guaiFENesin SOLUTION 200 MG/10 ML CUP PEG SCH ×3 (04:43→19:55)
[2017-06-14] MEDS: LEVOTHYROXINE SODIUM 100 MCG TAB PEG SCH (04:44)
[2017-06-14] MEDS: ENOXAPARIN SODIUM 30 MG/0.3 ML SYRINGE SQ SCH (04:44)
[2017-06-14] MEDS: MEROPENEM INJ 1,000 MG in SODIUM CHLORIDE 0.9% INJ 100 ML IV SCH ×2 (05:51→14:17)
[2017-06-14] MEDS: MIDODRINE 5 MG TAB PO SCH ×3 (05:51→16:11)
--- NOTE | 2017-06-14 06:26 | RADRPT ---
EXAM DATE/TIME: 06/14/2017 04:53 [facility] COMPARISON: CHEST SINGLE AP, June 13, 2017, 3:48. INDICATIONS : Evaluate for respiratory failure. MEDICAL HISTORY : Hypertension. Gastroesophageal reflux disease. Hiatal hernia. CVA A-Fib SURGICAL HISTORY : Appendectomy. Hysterectomy. ENCOUNTER: Subsequent ACUITY: 2 weeks PAIN SCORE: Non-responsive. LOCATION: chest FINDINGS: Mild bibasilar consolidation again noted, not significantly changed. No large effusion seen. No pneum othorax. Heart size stable, within normal limits. Endotracheal tube tip is approximately 2 cm above the montserrat . CONCLUSION: No significant change mild bibasilar consolidation. Werner Lowery MD on June 14, 2017 at 6:24 Board Certified Radiologist. This report was verified electronically.
[2017-06-14 07:03] LABS: HEMATOCRIT 26.5 % (35.0-46.0); HEMOGLOBIN 8.9 GM/DL (11.6-15.3); MEAN CELL VOLUME 89.3 FL (80.0-100.0); MEAN CORPUSCULAR HGB CONC 33.6 % (32.0-36.0); MEAN PLATELET VOLUME 8.5 FL (7.0-11.0); PLATELET COUNT 327 TH/MM3 (150-450); RED BLOOD COUNT 2.97 MIL/MM3 (4.00-5.30); RED CELL DISTRIBUTION WIDTH 18.6 % (11.6-17.2); WHITE BLOOD COUNT 10.3 TH/MM3 (4.0-11.0)
[2017-06-14 07:07] LABS: PROTHROMBIN TIME - PATIENT 10.3 SEC (9.8-11.6)
[2017-06-14 07:21] LABS: BICARBONATE 28.7 MEQ/L (21.0-32.0); CREATININE 0.42 MG/DL (0.50-1.00)
[2017-06-14] MEDS: RESP: ALBUTEROL 2.5 MG/3 ML NEB (PRN) NEB ×2 (07:24→14:44)
--- NOTE | 2017-06-14 07:24 | HHI.CCPN ---
Subjective Remarks/Hospital Course This is an 86-year-old female. Date of admission 06/01/2017. Date of consultation 06/07/2017. 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 She was diagnosed with a urinary tract infection.. She had a stage IV sacral decubitus ulcer 11 x 7 cm in wound care with infectious disease was consulted to evaluate that aspect of her care. Patient was treated with ertapenem form BSL positive E. coli urinary tract infection/Pseudomonas UTI and stage IV sacral decubitus ulcer. Last night, patient became confused and pulled out her PEG tube. This morning she had an acute decline in respiratory status including hypoxia and hypercapnia. Chest x- ray revealed left lower lobe infiltrate versus mucous plugging. A rapid response team was called the patient was transferred on 522. Upon my arrival, patient was tachypneic with saturations in the low 80s. Patient was emergently intubated/fiberoptic bronchoscopy was performed emergently as able to to contact son and central line placed due to extremely poor IV access. Subjective 3/4: Afebrile. FiO2 to 30%. We will wean PEEP to 5. Oxygenating much better at the present time. Arousable on the ventilator. Sticks out her tongue. 3/4: He is on Levophed currently at 6 Mr./min, patient decreased significantly currently on Versed 3 mg/hour. LFTs notably significantly elevated today pravastatin placed on hold. Leukocytosis resolving. 3/5:Afebrile. FIO2 .40%, PEEP 8 . Continues to require vasopressor support. 3/6: Patient intermittently on vasopressor support will begin Midodrine. Patient tolerated CPAP trials greater than 8 hours. 7: Late entry note. Patient remained on CPAP throughout the night now greater than 24 hours. Sedation has been discontinued, patient remains hemodynamically stable. Extensive discussion with the healthcare proxy Troy Corona regarding trial of extubation and possible reintubation. Plan for conference with palliative care as son does not want reintubation if the patient is extubated and decompensates and has also stated that he would like at that time of extubation to place patient hold status to DNR. Will consult with palliative care team for further discussion and determine the goals of care. Presently the patient continues full code while intubated and on CPAP trials. 06/13: Afebrile. No acute changes overnight the patient remains on CPAP trials. No sedation appears comfortable. Patient noted to have low phosphate level currently being repleted. Discussed with Dr. Quinteros planned meeting with POA today or tomorrow for clarification regarding trial of extubation and defining goals of care. 06/14: Patient did well throughout the night, continuing on CPAP of adequate tidal volumes and O2 saturation on FiO2 of 0.35. Family at bedside throughout the night. Patient remains awake and alert. Plans for extubation this a.m. and change in CODE STATUS per POA healthcare proxy's request. Objective Vital Signs Date Time Temp Pulse Resp B/P (MAP) Pulse Ox O2 Delivery O2 Flow Rate FiO2 06/14/17 06:00 93 35 06/14/17 06:00 81 06/14/17 04:00 98.8 19 147/70 (95) Intake and Output 06/14/17 06/14/17 06/15/17 08:00 16:00 00:00 Intake Total 758 ml Output Total 1500 ml Balance -742 ml Result Diagram: 06/14/17 0500 06/13/17 0505 Imaging Last Impressions Chest X-Ray 06/14/17599 Signed Impressions: Service Date/Time: Wednesday, June 14, 2017 04:53 - CONCLUSION: No significant change mild bibasilar consolidation. Werner Lowery MD Abdomen X-Ray 06/07/17 0000 Signed Impressions: Service Date/Time: Wednesday, June 07, 2017 12:57 - CONCLUSION: Contrast is noted within the stomach. Kristopher Poole MD Last Impressions Chest X-Ray 06/11/17 06 Signed Impressions: Service Date/Time: Sunday, June 11, 2017 05:07 - CONCLUSION: Mild bibasilar opacity most likely representing atelectasis. Otherwise, no acute finding is appreciated given the technique. Werner Moncada MD Abdomen X-Ray 06/07/17 0000 Signed Impressions: Service Date/Time: Wednesday, June 07, 2017 12:57 - CONCLUSION: Contrast is noted within the stomach. Kristopher Poole MD Last Impressions Chest X-Ray 06/10/17 06 Signed Impressions: Service Date/Time: Saturday, June 10, 2017 04:12 - CONCLUSION: 1. Stable left basilar opacity likely representing pleural effusion with associated volume loss and/or airspace consolidation. 2. Endotracheal tube distal tip now measures 2.6 cm from the montserrat. Werner Moncada MD Abdomen X-Ray 06/07/17 0000 Signed Impressions: Service Date/Time: Wednesday, June 07, 2017 12:57 - CONCLUSION: Contrast is noted within the stomach. Kristopher Poole MD Last Impressions Chest X-Ray 06/09/17 0600 Signed Impressions: Service Date/Time: Friday, June 09, 2017 03:56 - CONCLUSION: 1. ET tube tip convex at the right main bronchus and needs to be withdrawn 2 cm. 2. Persistent left lower lobe consolidation. Ang Booth MD Abdomen X-Ray 06/07/17 0000 Signed Impressions: Service Date/Time: Wednesday, June 07, 2017 12:57 - CONCLUSION: Contrast is noted within the stomach. Kristopher Poole MD Last Impressions Chest X-Ray 06/07/17 1157 Signed Impressions: Service Date/Time: Wednesday, June 07, 2017 12:24 - CONCLUSION: Line in good position. Consolidative changes left base.. Celestine Ritter MD FACR Abdomen X-Ray 06/07/17 0000 Signed Impressions: Service Date/Time: Wednesday, June 07, 2017 12:57 - CONCLUSION: Contrast is noted within the stomach. Kristopher Poole MD Objective Remarks GENERAL: 86-year-old female currently orotracheally intubated, spontaneous eye opening SKIN: Warm and dry. Stage IV sacral decubitus ulcer 11 x 7 cm, 2 lateral foot 2 x 1 cm stage II ulcers HEAD: Atraumatic. Normocephalic. EYES: Pupils equal and round about 3 mm bilaterally and reactive. No scleral icterus. No injection or drainage. ENT: No nasal bleeding or discharge. Mucous membranes pink and moist. NECK: Trachea midline. No JVD. CARDIOVASCULAR: Regular rate and rhythm. S1, S2. No S4. RESPIRATORY: Diminished breath sounds involving the left lower lobe. No wheezing. GASTROINTESTINAL: Abdomen soft, non-tender, nondistended. PEG tube insitu left upper quadrant. No bleeding is appreciated MUSCULOSKELETAL: Extremities without significant peripheral edema. Patient appears to be alexia the bilateral upper extremities and lower extremities NEUROLOGICAL: Currently orotracheally intubated. Positive gag and corneal reflex. Moving all 4 extremities spontaneously but not to command. Date of Insertion: Jun 07, 2017 Line: Central Venous Catheter Side: Right Location: Internal, Jugular A/P Assessment and Plan Neuro/Psych: Dementia disorder NOS Bipolar disorder Schizophrenia disorder NOS Acute toxic metabolic encephalopathy secondary hypoxia Seizure disorder NOS Hard of hearing 06/11 sedation discontinued Acetaminophen 650 mg by PEG every 6 hours as needed fever Currently on Depakote 250 mg by tube twice daily. Currently on mirtazapine 15 mg at night. Continue CV: Hypertension Dyslipidemia Atherosclerotic vascular disease Currently on D5 normal saline at 75 cc an hour discontinued 0600 06/09 Midodrine TID Metoprolol succinate 50 mg by PEG twice daily/home medication will be held in light of bradycardia Lisinopril 5 mg daily will be held in light of hypertension Spironolactone 25 mg p.o. daily has been held Continue clopidogrel bisulfate 75 mg daily for peripheral vascular disease Continue pravastatin 10 mg p.o. daily for dyslipidemia Pravastatin placed on hold in the setting of elevated liver enzymes- beginning to downtrend Resp: Acute respiratory failure secondary to left lower lobe pneumonia and mucous plugging ACV 16/500/8/30 Ventilator bundle Albuterol/ipratropium aerosols every 6 hours with albuterol aerosols every 2 hours as needed dyspnea Hypertonic saline aerosols every 6 hours for 7 days as mucolytic Guaifenesin liquid 400 mg every 8 hours Spontaneous breathing trials as tolerated Status post bronchoscopy 06/07. Please see note Continued on CPAP greater than 48 hours, obtain ABGs plan for extubation this a.m. Extubation parameters met- VT 350, RR18, RSBI 54, NIF -21, ABG- 7.48/37/149/28/ 4.6 GI: Self removal of PEG tube Gastroesophageal reflux disease History of esophageal dilatation/dislocation Status post PEG tube placement Constipation PEG tube replaced by Dr. Baker/GI at bedside. Gastrografin confirms placement. Jevity 1.5 goal 55 cc/h per dietary recommendations, minimal residual Omeprazole 30 mg by PEG for GI prophylaxis Docusate sodium/senna 100 mg/8.6 mg 1 tablet by PEG twice daily for bowel regimen : Recurrent urinary tract infections Frederick catheter has been placed for accurate I's and O's in a critically ill patient Endo: Hypothyroidism History of thyroidectomy Novulog sliding scale insulin with Accu-Cheks every 6 hours to maintain euglycemia Currently on levothyroxine 100 mcg daily. Increase to 200 mcg daily. Recheck TSH in 1 week ordered. Noted no IV L levothyroxine available at this facility except for emergent situations. Resting instructed to provide levothyroxine in a NPO status, at least 1 hour prior to administration TSH was 88. Renal: Creatinine currently within normal limits Monitor urine output Accurate I's and O's Heme: CBC currently within normal limits Currently on enoxaparin 30 mg subcu daily for DVT prophylaxis ID: E. coli ESBL positive/Pseudomonas urinary tract infection Sacral decubitus ulcer Leukocytosis Currently on meropenem day #4. Switch from ertapenem on 06/07 Currently on fluconazole 100 mg by tube daily for thrush with nystatin swish and spit Followed by infectious disease/Dr. Mcneill- Pertinent cultures 06/06 -BAL --gram-positive cocci in pairs. 06/05 -urine -Pseudomonas 06/01 -urine -ESBL positive E. coli/pseudomonas MSK: Generalized debilitation PT evaluate and treat FEN: Electrolyte derangement Replace electrolytes as clinically indicated Na Phos 15 mmol sodium/IV 1 now. Recheck in a.m. Access -Utilize right IJ CVL day #7 placed 06/07 Prophylaxis -GI -omeprazole -DVT -SCD/enoxaparin Critical Care: Level 2 followup D/W Dr. Quinteros last evening, and CELL REPAIRER at bedside 06/12-Extensive discussion with Palliative Care , Dr. Quinteros and BRANDON Corona. The patient remains on a full CODE STATUS while intubated. Per Mr. Uriarte plan after trial of extubation is to transfer convert status to DNR upon my conversation with him last evening. He stated he does not want the endotracheal tube replaced at the patient decompensates post extubation and would like DNR status and comfort measures. 06/14-patient doing well on CPAP greater than 48 hours plan for extubation this a.m. I request of healthcare proxy POA, upon extubation CODE STATUS will be changed to DNR/DNI. Physician Robina Houston MD Jun 14, 2017 07:24
[2017-06-14] MEDS: LANSOPRAZOLE SOLUTAB 30 MG TAB PEG SCH (07:35)
[2017-06-14] MEDS: DOCUSATE SODIUM 50 MG/SENNA 8.6 MG TAB PO SCH ×2 (07:35→19:55)
[2017-06-14] MEDS: NYSTATIN SUSP 500,000 U/5 ML CUP SWISH-SWAL SCH ×4 (07:35→19:56)
[2017-06-14] MEDS: SPIRONOLACTONE 25 MG TAB PEG SCH (07:36)
[2017-06-14] MEDS: SODIUM CHLORIDE 0.9% FLUSH 10 ML FLUSH IV FLUSH SCH ×3 (07:36→19:55)
[2017-06-14] MEDS: LISINOPRIL 5 MG TAB PO SCH (07:36)
[2017-06-14] MEDS: ASCORBIC ACID 500 MG TAB PEG SCH ×2 (07:36→19:55)
[2017-06-14] MEDS: MULTIVITAMINS/MINERALS THERAPEUTIC TAB PEG SCH (07:36)
[2017-06-14] MEDS: FLUCONAZOLE 100 MG TAB PO SCH (07:36)
[2017-06-14] MEDS: CLOPIDOGREL 75 MG TAB PEG SCH (07:36)
[2017-06-14] MEDS: DIVALPROEX SODIUM SPRINKLES 125 MG CAP G-TUBE SCH ×2 (07:36→19:54)
[2017-06-14] MEDS: LACTIC ACID (AMMONIUM LACTATE) 12% LOTION 225 GM BTL TOPICAL SCH ×2 (07:37→19:56)
[2017-06-14] MEDS: JUVEN POWDER 1 PACK G-TUBE SCH ×2 (07:37→19:54)
[2017-06-14] MEDS: CHLORHEXIDINE 0.12% (ORAL KIT) 15 ML CUP MT SCH ×2 (07:37→19:08)
--- NOTE | 2017-06-14 09:41 | HHI.HCPN ---
Reason for visit a. To assist with evaluation and management of symptoms including: Dyspnea, pain b. To assist medical decision maker(s) with: better understanding of current medical conditions; weighing benefits/burdens of medical treatment options; making medical treatment decisions. Subjective/Interval History Pt more alert, open eyes, intubated. Plan is for extubation. After extubation, pt alert, on non-rebreather. appears to be tolerating. Family/friend interactions Yesterday and today spoke with Luis Fernando, the local son; he understands that if pt does not do well after medical extubation, there will be no reintubation. I spoke with Mr. Troy Corona today (POA) and updated him on pt's condition, informed in of change in code status. We spoke about if she remains stable what his plan is. Offer hospice services again to pt, talked about what hospice can do, but also limitations. He asked about antibiotics which I state, generally hospice could not cover IV antibiotics. I did tell son, I suspect worry, a similar episode will happen again, the choice is weather to bring her back to the hospital or do you feel her threshold has been reach and to make sure she is comfortable. He has in the past endorse, pts brother Luis Fernando did not like hospice services. POA state he will see how patient does in the next few days to decide. Advance Directives Living Will: Completed, but not made available Health Care Surrogate: Copy in medical record Durable Power of Special Education Assistant: Copy in medical record Objective Vital Signs Date Time Temp Pulse Resp B/P (MAP) Pulse Ox O2 Delivery O2 Flow Rate FiO2 06/14/17 08:00 74 06/14/17 08:00 98.5 74 20 133/61 (85) 94 06/14/17 08:00 35 06/14/17 07:26 100 35 06/14/17 06:00 93 35 06/14/17 06:00 81 06/14/17 04:00 98.8 85 19 147/70 (95) 92 06/14/17 04:00 85 06/14/17 04:00 35 06/14/17 03:49 98 35 06/14/17 02:00 90 06/14/17 00:36 96 35 06/14/17 00:00 89 06/14/17 00:00 99.7 89 11 164/75 (104) 95 06/14/17 00:00 35 06/13/17 22:00 92 06/13/17 21:16 95 35 06/13/17 20:00 35 06/13/17 20:00 82 06/13/17 20:00 99.0 82 21 146/69 (94) 91 06/13/17 19:53 95 35 06/13/17 18:00 79 06/13/17 16:00 35 06/13/17 16:00 83 06/13/17 16:00 83 19 97 06/13/17 15:56 96 35 06/13/17 14:06 83 06/13/17 14:06 83 25 139/63 (88) 99 06/13/17 14:02 91 06/13/17 14:02 91 29 135/100 (112) 99 06/13/17 14:00 79 25 98 06/13/17 14:00 79 06/13/17 13:04 98 35 06/13/17 12:00 79 06/13/17 12:00 79 24 100 06/13/17 12:00 35 06/13/17 10:00 75 06/13/17 10:00 75 23 94 Intake & Output 06/14/17 06/14/17 07:00 19:00 Intake Total 858 ml Output Total 1500 ml Balance -642 ml IV Total 200 ml Tube Feeding 658 ml Output Urine Total 1500 ml # Bowel Movements 0 Physical Exam CONSTITUTIONAL/GENERAL: This is a thin, frail elderly female, restless on mechanical vent, alert confused, TUBES/LINES/DRAINS: IJ central line, peripheral IV upper extremity, PEG tube. Frederick catheter. SKIN: Reported sacral wound not visualized. Pressure ulcerations visible to lateral and medial surfaces of feet and leg. HEAD: Atraumatic. Normocephalic. EYES: Pupils equal and round and reactive. Extraocular motions intact. No scleral icterus. No injection or drainage. Fundi not examined. ENT: Nose without bleeding or purulent drainage. NECK: Trachea midline. Supple, nontender. CARDIOVASCULAR: Regular rate and rhythm no murmur. No JVD. Peripheral pulses faint. RESPIRATORY/CHEST: Symmetric, unlabored respirations. Clear to auscultation. Breath sounds equal bilaterally. No wheezes, rales, or rhonchi. GASTROINTESTINAL: Abdomen soft, flat, non-tender, nondistended. No palpable masses. + G-tube clamped no symptoms of problem. Bowel sounds present. GENITOURINARY: Without palpable bladder distension. Frederick catheter in place. MUSCULOSKELETAL: Extremities without clubbing, cyanosis, or edema. Lower extremities drawn up, contracted. NEUROLOGICAL: Awake and alert. Moving upper extremities well, lower extremities minimally move. She does not follow commands. Eyes are open appears to track. PSYCHIATRIC: calm Diagnostic Tests Laboratory Laboratory Tests Test 06/11/17 20:15 06/12/17 05:00 06/13/17 05:05 06/14/17 05:00 Vancomycin Level Trough 12.5 MCG/ML (5.0-10.0) White Blood Count 9.2 TH/MM3 (4.0-11.0) 8.6 TH/MM3 (4.0-11.0) 10.3 TH/MM3 (4.0-11.0) Red Blood Count 2.65 MIL/MM3 (4.00-5.30) 2.55 MIL/MM3 (4.00-5.30) 2.97 MIL/MM3 (4.00-5.30) Hemoglobin 8.1 GM/DL (11.6-15.3) 7.6 GM/DL (11.6-15.3) 8.9 GM/DL (11.6-15.3) Hematocrit 23.7 % (35.0-46.0) 22.8 % (35.0-46.0) 26.5 % (35.0-46.0) Mean Corpuscular Volume 89.5 FL (80.0-100.0) 89.3 FL (80.0-100.0) 89.3 FL (80.0-100.0) Mean Corpuscular Hemoglobin 30.4 PG (27.0-34.0) 29.7 PG (27.0-34.0) 30.0 PG (27.0-34.0) Mean Corpuscular Hemoglobin Concent 33.9 % (32.0-36.0) 33.3 % (32.0-36.0) 33.6 % (32.0-36.0) Red Cell Distribution Width 18.9 % (11.6-17.2) 18.4 % (11.6-17.2) 18.6 % (11.6-17.2) Platelet Count 264 TH/MM3 (150-450) 280 TH/MM3 (150-450) 327 TH/MM3 (150-450) Mean Platelet Volume 8.0 FL (7.0-11.0) 8.2 FL (7.0-11.0) 8.5 FL (7.0-11.0) Blood Urea Nitrogen 16 MG/DL (7-18) 24 MG/DL (7-18) 29 MG/DL (7-18) Creatinine 0.34 MG/DL (0.50-1.00) 0.40 MG/DL (0.50-1.00) 0.42 MG/DL (0.50-1.00) Random Glucose 116 MG/DL (74-106) 118 MG/DL (74-106) 120 MG/DL (74-106) Calcium Level 8.4 MG/DL (8.5-10.1) 8.4 MG/DL (8.5-10.1) 9.0 MG/DL (8.5-10.1) Phosphorus Level 2.0 MG/DL (2.5-4.9) 1.6 MG/DL (2.5-4.9) Magnesium Level 2.5 MG/DL (1.5-2.5) 2.3 MG/DL (1.5-2.5) Sodium Level 143 MEQ/L (136-145) 140 MEQ/L (136-145) 136 MEQ/L (136-145) Potassium Level 4.5 MEQ/L (3.5-5.1) 4.5 MEQ/L (3.5-5.1) 5.1 MEQ/L (3.5-5.1) Chloride Level 111 MEQ/L (98-107) 107 MEQ/L (98-107) 103 MEQ/L (98-107) Carbon Dioxide Level 26.8 MEQ/L (21.0-32.0) 28.8 MEQ/L (21.0-32.0) 28.7 MEQ/L (21.0-32.0) Anion Gap 5 MEQ/L (5-15) 4 MEQ/L (5-15) 4 MEQ/L (5-15) Estimat Glomerular Filtration Rate 183 ML/MIN (>89) 152 ML/MIN (>89) 144 ML/MIN (>89) Prothrombin Time 10.3 SEC (9.8-11.6) Prothromb Time International Ratio 1.0 RATIO Test 06/14/17 09:20 Blood Gas Puncture Site RT RADIAL Blood Gas Patient Temperature 98.6 Blood Gas HCO3 28 mmol/L (22-26) Blood Gas Base Excess 4.6 mmol/L (-2-2) Blood Gas Oxygen Saturation 97 % (90-100) Arterial Blood pH 7.48 (7.380-7.420) Arterial Blood Partial Pressure CO2 38 mmHg (38-42) Arterial Blood Partial Pressure O2 149 mmHg (61-120) Arterial Blood Oxygen Content 11.9 Vol % (12.0-20.0) Arterial Blood Carboxyhemoglobin 1.2 % (0-4) Arterial Blood Methemoglobin 1.1 % (0-2) Blood Gas Hemoglobin 8.4 G/DL (12.0-16.0) Oxygen Delivery Device VENTILATOR Blood Gas Ventilator Setting CPAP+5/PS+7 Blood Gas Inspired Oxygen 35 % Result Diagram: 06/14/17 0500 06/14/17 0500 Procedures =3/2 intubation, central line RT IJ = bronchoscopy Assessment and Plan Disease Oriented Problem List: (1) BipolarII (2) Sacral decubitus ulcer (3) Malnutrition (4) ESBL (extended spectrum beta-lactamase) producing bacteria infection (5) HTN (hypertension) (6) Respiratory failure (7) Dislodged gastrostomy tube Symptom Scale: (1) Dyspnea 0-10 Scale: Unable to quantify (2) Pain 0-10 Scale: Unable to quantify (3) Agitation 0-10 Scale: Unable to quantify Pertinent Non-Medical Issues Psychosocial: Pt is and in total has 6 children. In order of age below: Douglas Pop (has mental retardation). Troy Corona (who I just spoke to). Luis Fernando Corona (who has been refusing my call today). Lucy Corona ( [place]) Jann Corona (past away). We do not have contact information besides Troy Corona and Luis Fernando Corona. Spiritual: [place] Legal: POA is Troy Corona. He is in [place], and accepted role to continue to serve of POA. Luis Fernando Corona is local son, but is not the POA. Important Contacts Troy Corona (POA) [phone]/ Luis Fernando Corona [phone] or [phone]/ son Has hung up on palliative care x 2. He is not the POA Prognosis This patient was admitted for cough, shortness of breath. She has advanced dementia, she has had recurrent hospitalizations for infections and complications. She is bedbound and contracted. She had worsening respiratory distress today requiring intubation. Possible with prolonged aggressive interventions she might recover from a current acute episode, though she is very debilitated and high risk for further complications , setbacks and . She is appropriate for hospice if goals compatible. . Code Status: No Code Plan * Legal decision maker: Troy Corona, paper work was received which confirms Troy's legal status as medical decision maker. * Capacity- pt does not capacity to make medical decisions. * Goals:Mr. Troy Corona, reconfimrmed for me as he has discussed with Dr. Paris that when medically extubated we can change pt to DNR/DNI. Should pt be short of breath, decompensate, no further reintubation or resucitation. Continue medical treatment short of resucitation. I spoke with Mr. Troy Corona today (POA) and updated him on pt's condition, informed in of change in code status. We spoke about if she remains stable what his plan is. Offer hospice services again to pt, talked about what hospice can do, but also limitations. He asked about antibiotics which I state, generally hospice could not cover IV antibiotics. I did tell son, I suspect worry, a similar episode will happen again, the choice is weather to bring her back to the hospital or do you feel her threshold has been reach and to make sure she is comfortable. He has in the past endorse, pts brother Luis Fernando did not like hospice services. POA state he will see how patient does in the next few days to decide weather to go back to hospice. I do suspect however POA may not enroll pt on hospice until another decline or setback. * CODE STATUS:Change to DNR/DNI, * SYMPTOMS: --Dyspnea -admitted for cough, shortness of breath. Emergently intubated 06/07 for worsening respiratory status. Medical extubation, No med rec. --Pain- large sacral decubitus ulcer, chronic. Potential source of pain. Chronic bedbound status, contractures other potential sources of pain. No new med rec. * Palliative care will continue to follow during hospital course as condition evolves, to assist patient/decision-maker with understanding of medical conditions, weighing benefits/burdens of treatment options, for clarification of goals of treatment. Additionally will assist with any symptoms of palliative concern. . Attestation To help prompt me to consider important information that might be impacting today's encounter and assessment, information from prior notes written by myself or my colleagues may have been "brought forward" into today's note. My signature on this note, however, is an attestation that I personally performed the exam, history, and/or decision-making noted today, and, unless otherwise indicated, the interactions with patient, family, and staff as well as the review of records all occurred today. I also attest that the listed assessment and stated plan reflect my best clinical judgment today based on the combination of historical information, prior notes, and today's exam/ interactions. When time spent is documented, it refers only to time spent today by the signer, or if indicated, combined time spent today by collaborating physician/nurse practitioner. Cortes Quinteros MD Jun 14, 2017 09:41
--- NOTE | 2017-06-14 15:56 | HHI.IDPN ---
Note Infectious Disease Note Patient was extubated. She is now on oxygen via facemask. She is awake and appears very alert. She is tracking with her eyes. No distress. Afebrile. 86-year-old white female who was brought to the emergency department from a retirement facility. The patient apparently had respiratory symptoms with coughing. She has been on IV antibiotics for possible pneumonia. She also is noted to have a decubitus sacral ulceration. She has an indwelling Frederick catheter. The patient is severely demented. PAST MEDICAL HISTORY 1. Urinary tract infection 2. Hypothyroidism, 3. Dementia, 4. Bipolar disorder, 5. Schizophrenia 6. PEG placement 7. Total abdominal hysterectomy. ALLERGIES SULFA ASPIRIN CELECOXIB HALOPERIDOL RESPERIDONE CHLORPROMAZINE. ANTIBIOTICS: Meropenem. OBJECTIVE: Vital Signs Date Time Temp Pulse Resp B/P (MAP) Pulse Ox O2 Delivery O2 Flow Rate FiO2 06/14/17 14:00 79 06/14/17 12:00 97.8 79 10 134/63 (86) 99 06/14/17 12:00 79 06/14/17 10:00 73 06/14/17 08:00 74 06/14/17 08:00 98.5 74 20 133/61 (85) 94 06/14/17 08:00 35 06/14/17 07:26 100 35 06/14/17 06:00 93 35 06/14/17 06:00 81 06/14/17 04:00 98.8 85 19 147/70 (95) 92 06/14/17 04:00 85 06/14/17 04:00 35 06/14/17 03:49 98 35 06/14/17 02:00 90 06/14/17 00:36 96 35 06/14/17 00:00 89 06/14/17 00:00 99.7 89 11 164/75 (104) 95 06/14/17 00:00 35 06/13/17 22:00 92 06/13/17 21:16 95 35 06/13/17 20:00 35 06/13/17 20:00 82 06/13/17 20:00 99.0 82 21 146/69 (94) 91 06/13/17 19:53 95 35 06/13/17 18:00 79 06/13/17 16:00 35 06/13/17 16:00 83 06/13/17 16:00 83 19 97 06/13/17 15:56 96 35 Laboratory Tests Test 06/13/17 05:05 06/14/17 05:00 White Blood Count 8.6 TH/MM3 10.3 TH/MM3 Red Blood Count 2.55 MIL/MM3 2.97 MIL/MM3 Hemoglobin 7.6 GM/DL 8.9 GM/DL Hematocrit 22.8 % 26.5 % Mean Corpuscular Volume 89.3 FL 89.3 FL Mean Corpuscular Hemoglobin 29.7 PG 30.0 PG Mean Corpuscular Hemoglobin Concent 33.3 % 33.6 % Red Cell Distribution Width 18.4 % 18.6 % Platelet Count 280 TH/MM3 327 TH/MM3 Mean Platelet Volume 8.2 FL 8.5 FL Laboratory Tests Test 06/13/17 05:05 06/14/17 05:00 Blood Urea Nitrogen 24 MG/DL 29 MG/DL Creatinine 0.40 MG/DL 0.42 MG/DL Random Glucose 118 MG/DL 120 MG/DL Calcium Level 8.4 MG/DL 9.0 MG/DL Phosphorus Level 1.6 MG/DL Magnesium Level 2.3 MG/DL Sodium Level 140 MEQ/L 136 MEQ/L Potassium Level 4.5 MEQ/L 5.1 MEQ/L Chloride Level 107 MEQ/L 103 MEQ/L Carbon Dioxide Level 28.8 MEQ/L 28.7 MEQ/L Anion Gap 4 MEQ/L 4 MEQ/L Estimat Glomerular Filtration Rate 152 ML/MIN 144 ML/MIN Microbiology Date/Time Source Procedure Growth Status 06/09/17 14:25 Blood Peripheral Aerobic Blood Culture - Preliminary NO GROWTH IN 2 DAYS Resulted 06/09/17 14:25 Blood Peripheral Anaerobic Blood Culture - Preliminary NO GROWTH IN 2 DAYS Resulted 06/09/17 11:45 Blood Line Aerobic Blood Culture - Preliminary NO GROWTH IN 2 DAYS Resulted 06/09/17 11:45 Blood Line Anaerobic Blood Culture - Preliminary NO GROWTH IN 2 DAYS Resulted IMAGING: Chest X-Ray 06/14/17599 Signed Impressions: Service Date/Time: Wednesday, June 14, 2017 04:53 - CONCLUSION: No significant change mild bibasilar consolidation. Werner Lowery MD Chest X-Ray 06/13/17599 Signed Impressions: Service Date/Time: June 03:48 - CONCLUSION: Underinflation with likely atelectasis at the lung bases. Otherwise, no acute finding is identified given the technique. Werner Moncada MD Chest X-Ray 06/12/17599 Signed Impressions: Service Date/Time: Monday, June 12, 2017 03:39 - CONCLUSION: Underinflated and rotated examination without an acute abnormality identified. Overall, stable exam. Werner Moncada MD Chest X-Ray 06/11/17599 Signed Impressions: Service Date/Time: Sunday, June 11, 2017 05:07 - CONCLUSION: Mild bibasilar opacity most likely representing atelectasis. Otherwise, no acute finding is appreciated given the technique. Werner Moncada MD Chest X-Ray 06/10/17599 Signed Impressions: Service Date/Time: Saturday, June 10, 2017 04:12 - CONCLUSION: 1. Stable left basilar opacity likely representing pleural effusion with associated volume loss and/or airspace consolidation. 2. Endotracheal tube distal tip now measures 2.6 cm from the [place]. Werner Moncada MD Abdomen X-Ray 06/07/17 0000 Signed Impressions: Service Date/Time: Wednesday, June 07, 2017 12:57 - CONCLUSION: Contrast is noted within the stomach. Kristopher Poole MD PHYSICAL EXAMINATION GENERAL: Awake. No acute distress. HEENT: Extraocular movements are grossly intact, pupils reactive to light. No icterus. Oropharynx moist mucosa. NECK: Supple. LUNGS: Slight decreased breath sounds at the left base. Otherwise clear. HEART: Regular S1 and S2. No audible murmur. ABDOMEN: Bowel sounds present, soft. EXTREMITIES: No clubbing or cyanosis, no edema. Contractures of the lower extremities. NEUROLOGIC: Awake. Noncommunicative. Difficult to assess. PSYCHIATRIC: Unable to assess. IMPRESSION 1. Acute respiratory failure. Right lower lobe infiltrate from mucous plugging. Aspiration pneumonia. HCAP. 2. Urinary tract infection due to ESBL E-coli. Treated. 3. Severe dementia. RECOMMENDATIONS 1. Stop meropenem. I do not think she needs additional antibiotics. 2. Monitor clinical status. [facility] standpoint. Stevenson Mcneill MD Jun 14, 2017 15:56
[2017-06-14] MEDS ORDERED: ONDANSETRON HCL 4 MG/2 ML VIAL IV PUSH PRN (16:15)
[2017-06-14] MEDS: MIRTAZAPINE 15 MG TAB PEG SCH (19:55)
[2017-06-15] VITALS (9 sets, daily range): BP systolic 111–135; BP diastolic 54–63; PULSE 78–89; RESP 18–22; TEMP 97.7–99; O2SAT 91–100
[2017-06-15] MEDS: LEVOTHYROXINE SODIUM 100 MCG TAB PEG SCH (05:05)
[2017-06-15] MEDS: guaiFENesin SOLUTION 200 MG/10 ML CUP PEG SCH ×2 (05:05→13:09)
[2017-06-15] MEDS: MIDODRINE 5 MG TAB PO SCH ×2 (05:05→13:09)
[2017-06-15] MEDS: ENOXAPARIN SODIUM 30 MG/0.3 ML SYRINGE SQ SCH (05:05)
--- NOTE | 2017-06-15 06:48 | HHI.CCPN ---
Subjective Remarks/Hospital Course This is an 86-year-old female. Date of admission 06/01/2017. Date of consultation 06/07/2017. 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 She was diagnosed with a urinary tract infection.. She had a stage IV sacral decubitus ulcer 11 x 7 cm in wound care with infectious disease was consulted to evaluate that aspect of her care. Patient was treated with ertapenem form BSL positive E. coli urinary tract infection/Pseudomonas UTI and stage IV sacral decubitus ulcer. Last night, patient became confused and pulled out her PEG tube. This morning she had an acute decline in respiratory status including hypoxia and hypercapnia. Chest x- ray revealed left lower lobe infiltrate versus mucous plugging. A rapid response team was called the patient was transferred on 522. Upon my arrival, patient was tachypneic with saturations in the low 80s. Patient was emergently intubated/fiberoptic bronchoscopy was performed emergently as able to to contact son and central line placed due to extremely poor IV access. Subjective 3/4: Afebrile. FiO2 to 30%. We will wean PEEP to 5. Oxygenating much better at the present time. Arousable on the ventilator. Sticks out her tongue. 3/4: He is on Levophed currently at 6 Mr./min, patient decreased significantly currently on Versed 3 mg/hour. LFTs notably significantly elevated today pravastatin placed on hold. Leukocytosis resolving. 3/5:Afebrile. FIO2 .40%, PEEP 8 . Continues to require vasopressor support. 3/6: Patient intermittently on vasopressor support will begin Midodrine. Patient tolerated CPAP trials greater than 8 hours. 7: Late entry note. Patient remained on CPAP throughout the night now greater than 24 hours. Sedation has been discontinued, patient remains hemodynamically stable. Extensive discussion with the healthcare proxy Troy Corona regarding trial of extubation and possible reintubation. Plan for conference with palliative care as son does not want reintubation if the patient is extubated and decompensates and has also stated that he would like at that time of extubation to place patient hold status to DNR. Will consult with palliative care team for further discussion and determine the goals of care. Presently the patient continues full code while intubated and on CPAP trials. 06/13: Afebrile. No acute changes overnight the patient remains on CPAP trials. No sedation appears comfortable. Patient noted to have low phosphate level currently being repleted. Discussed with Dr. Quinteros planned meeting with POA today or tomorrow for clarification regarding trial of extubation and defining goals of care. 06/14: Patient did well throughout the night, continuing on CPAP of adequate tidal volumes and O2 saturation on FiO2 of 0.35. Family at bedside throughout the night. Patient remains awake and alert. Plans for extubation this a.m. and change in CODE STATUS per POA healthcare proxy's request. 06/15: Overnight the patient's FiO2 requirements increased to 50% patient currently on Ventimask at 50%. Patient resting comfortably no signs of respiratory distress. Tolerating tube feeds hemodynamically stable plan for discharge to SNF this a.m.. Objective Vital Signs Date Time Temp Pulse Resp B/P (MAP) Pulse Ox O2 Delivery O2 Flow Rate FiO2 06/15/17 06:00 81 06/15/17 04:00 99.0 22 135/63 (87) 91 06/15/17 00:49 Venturi Mask 6.00 50 Intake and Output 06/15/17 06/15/17 06/16/17 08:00 16:00 00:00 Intake Total 655 ml Output Total 3900 ml Balance -3245 ml Result Diagram: 06/14/17 0500 06/14/17 0500 Other Results Laboratory Tests Test 06/14/17 09:20 Blood Gas Puncture Site RT RADIAL Blood Gas Patient Temperature 98.6 Blood Gas HCO3 28 mmol/L (22-26) Blood Gas Base Excess 4.6 mmol/L (-2-2) Blood Gas Oxygen Saturation 97 % (90-100) Arterial Blood pH 7.48 (7.380-7.420) Arterial Blood Partial Pressure CO2 38 mmHg (38-42) Arterial Blood Partial Pressure O2 149 mmHg (61-120) Arterial Blood Oxygen Content 11.9 Vol % (12.0-20.0) Arterial Blood Carboxyhemoglobin 1.2 % (0-4) Arterial Blood Methemoglobin 1.1 % (0-2) Blood Gas Hemoglobin 8.4 G/DL (12.0-16.0) Oxygen Delivery Device VENTILATOR Blood Gas Ventilator Setting CPAP+5/PS+7 Blood Gas Inspired Oxygen 35 % Imaging Last Impressions Chest X-Ray 06/14/17 0600 Signed Impressions: Service Date/Time: Wednesday, June 14, 2017 04:53 - CONCLUSION: No significant change mild bibasilar consolidation. Werner Lowery MD Abdomen X-Ray 06/07/17 0000 Signed Impressions: Service Date/Time: Wednesday, June 07, 2017 12:57 - CONCLUSION: Contrast is noted within the stomach. Kristopher Poole MD Last Impressions Chest X-Ray 06/11/17 0600 Signed Impressions: Service Date/Time: Sunday, June 11, 2017 05:07 - CONCLUSION: Mild bibasilar opacity most likely representing atelectasis. Otherwise, no acute finding is appreciated given the technique. Werner Moncada MD Abdomen X-Ray 06/07/17 0000 Signed Impressions: Service Date/Time: Wednesday, June 07, 2017 12:57 - CONCLUSION: Contrast is noted within the stomach. Kristopher Poole MD Last Impressions Chest X-Ray 06/10/17 0600 Signed Impressions: Service Date/Time: Saturday, June 10, 2017 04:12 - CONCLUSION: 1. Stable left basilar opacity likely representing pleural effusion with associated volume loss and/or airspace consolidation. 2. Endotracheal tube distal tip now measures 2.6 cm from the mont[place]err[place]. Werner Moncada MD Abdomen X-Ray 06/07/17 0000 Signed Impressions: Service Date/Time: Wednesday, June 07, 2017 12:57 - CONCLUSION: Contrast is noted within the stomach. Kristopher Poole MD Last Impressions Chest X-Ray 06/09/17 0600 Signed Impressions: Service Date/Time: Friday, June 09, 2017 03:56 - CONCLUSION: 1. ET tube tip convex at the right main bronchus and needs to be withdrawn 2 cm. 2. Persistent left lower lobe consolidation. Ang Booth MD Abdomen X-Ray 06/07/17 0000 Signed Impressions: Service Date/Time: Wednesday, June 07, 2017 12:57 - CONCLUSION: Contrast is noted within the stomach. Kristopher Poole MD Last Impressions Chest X-Ray 06/07/17 1157 Signed Impressions: Service Date/Time: Wednesday, June 07, 2017 12:24 - CONCLUSION: Line in good position. Consolidative changes left base.. Celestine Ritter MD FACR Abdomen X-Ray 06/07/17 0000 Signed Impressions: Service Date/Time: Wednesday, June 07, 2017 12:57 - CONCLUSION: Contrast is noted within the stomach. Kristopher Poole MD Objective Remarks GENERAL: 86-year-old female resting comfortably with 50% Ventimask in no apparent distress nodding head responding to questions SKIN: Warm and dry. Stage IV sacral decubitus ulcer 11 x 7 cm, 2 lateral foot 2 x 1 cm stage II ulcers HEAD: Atraumatic. Normocephalic. EYES: Pupils equal and round about 3 mm bilaterally and reactive. No scleral icterus. No injection or drainage. ENT: No nasal bleeding or discharge. Mucous membranes pink and moist. NECK: Trachea midline. No JVD. CARDIOVASCULAR: Regular rate and rhythm. S1, S2. No S4. RESPIRATORY: Diminished breath sounds involving the left lower lobe. No wheezing. GASTROINTESTINAL: Abdomen soft, non-tender, nondistended. PEG tube insitu left upper quadrant. No bleeding is appreciated MUSCULOSKELETAL: Extremities without significant peripheral edema. Patient appears to be alexia the bilateral upper extremities and lower extremities NEUROLOGICAL: RASS 0, nodding head to yes and no questions Date of Insertion: Jun 07, 2017 Line: Central Venous Catheter Side: Right Location: Internal, Jugular A/P Assessment and Plan Neuro/Psych: Dementia disorder NOS Bipolar disorder Schizophrenia disorder NOS Acute toxic metabolic encephalopathy secondary hypoxia Seizure disorder NOS Hard of hearing 3/6 sedation discontinued Acetaminophen 650 mg by PEG every 6 hours as needed fever Currently on Depakote 250 mg by tube twice daily. Currently on mirtazapine 15 mg at night. Continue CV: Hypertension Dyslipidemia Atherosclerotic vascular disease Currently on D5 normal saline at 75 cc an hour discontinued 0600 3/4 Midodrine TID Metoprolol succinate 50 mg by PEG twice daily/home medication will be held in light of bradycardia Lisinopril 5 mg daily will be held in light of hypertension Spironolactone 25 mg p.o. daily has been held Continue clopidogrel bisulfate 75 mg daily for peripheral vascular disease Continue pravastatin 10 mg p.o. daily for dyslipidemia Pravastatin placed on hold in the setting of elevated liver enzymes- downtrending Resp: Acute respiratory failure secondary to left lower lobe pneumonia and mucous plugging ACV 16/500/8/30 Ventilator bundle Albuterol/ipratropium aerosols every 6 hours with albuterol aerosols every 2 hours as needed dyspnea Hypertonic saline aerosols every 6 hours for 7 days as mucolytic Guaifenesin liquid 400 mg every 8 hours Spontaneous breathing trials as tolerated Status post bronchoscopy 06/07. Please see note Status post extubation 06/14 GI: Self removal of PEG tube Gastroesophageal reflux disease History of esophageal dilatation/dislocation Status post PEG tube placement Constipation-resolved PEG tube replaced by Dr. Baker/GI at bedside. Gastrografin confirms placement. Jevity 1.5 goal 55 cc/h per dietary recommendations, minimal residual Omeprazole 30 mg by PEG for GI prophylaxis Docusate sodium/senna 100 mg/8.6 mg 1 tablet by PEG twice daily for bowel regimen : Recurrent urinary tract infections Frederick catheter has been placed for accurate I's and O's in a critically ill patient Endo: Hypothyroidism History of thyroidectomy Novulog sliding scale insulin with Accu-Cheks every 6 hours to maintain euglycemia Currently on levothyroxine 100 mcg daily. Increase to 200 mcg daily. Recheck TSH in 1 week ordered. Noted no IV L levothyroxine available at this facility except for emergent situations. Resting instructed to provide levothyroxine in a NPO status, at least 1 hour prior to administration TSH was 88. Renal: Creatinine currently within normal limits Monitor urine output Accurate I's and O's Heme: CBC currently within normal limits Currently on enoxaparin 30 mg subcu daily for DVT prophylaxis ID: E. coli ESBL positive/Pseudomonas urinary tract infection Sacral decubitus ulcer Leukocytosis Currently on meropenem day #5. Switch from ertapenem on 06/07 Currently on fluconazole 100 mg by tube daily for thrush with nystatin swish and spit Followed by infectious disease/Dr. Mcneill- Pertinent cultures 06/06 -BAL --gram-positive cocci in pairs. 06/05 -urine -Pseudomonas 06/01 -urine -ESBL positive E. coli/pseudomonas MSK: Generalized debilitation PT evaluate and treat FEN: Electrolyte derangement Replace electrolytes as clinically indicated Na Phos 15 mmol sodium/IV 1 now. Recheck in a.m. Access -Utilize right IJ CVL day #7 placed 06/07 Prophylaxis -GI -omeprazole -DVT -SCD/enoxaparin Critical Care: Level 2 followup D/W CUSTOMER SERVICE ASSISTANT at bedside 06/12-Extensive discussion with Palliative Care , Dr. Quinteros and BRANDON Corona. The patient remains on a full CODE STATUS while intubated. Per Mr. Uriarte plan after trial of extubation is to transfer convert status to DNR upon my conversation with him last evening. He stated he does not want the endotracheal tube replaced at the patient decompensates post extubation and would like DNR status and comfort measures. 06/14-CODE STATUS changed to DNR/DNI. 06/15-plan transfer to SNF, discussed with family at bedside Physician Robina Houston MD Jun 15, 2017 06:48
[2017-06-15] MEDS ORDERED: DULC10SU3 RECTAL (07:01)
[2017-06-15] MEDS ORDERED: ALBU0.63 NEB (07:01)
[2017-06-15] MEDS ORDERED: DEPA250T2 PEG (07:01)
[2017-06-15] MEDS ORDERED: MILKSUS PEG (07:01)
[2017-06-15] MEDS ORDERED: MIRTA15 PEG (07:01)
[2017-06-15] MEDS ORDERED: PLAV75TA29 PEG (07:01)
[2017-06-15] MEDS ORDERED: PREV30TA3 PEG (07:01)
[2017-06-15] MEDS: CHLORHEXIDINE 0.12% (ORAL KIT) 15 ML CUP MT SCH (08:00)
[2017-06-15] MEDS: LISINOPRIL 5 MG TAB PO SCH (09:00)
[2017-06-15] MEDS: SODIUM CHLORIDE 0.9% FLUSH 10 ML FLUSH IV FLUSH SCH ×2 (09:00→09:54)
[2017-06-15] MEDS: DIVALPROEX SODIUM SPRINKLES 125 MG CAP G-TUBE SCH (09:53)
[2017-06-15] MEDS: MULTIVITAMINS/MINERALS THERAPEUTIC TAB PEG SCH (09:53)
[2017-06-15] MEDS: ASCORBIC ACID 500 MG TAB PEG SCH (09:53)
[2017-06-15] MEDS: DOCUSATE SODIUM 50 MG/SENNA 8.6 MG TAB PO SCH (09:53)
[2017-06-15] MEDS: SPIRONOLACTONE 25 MG TAB PEG SCH (09:53)
[2017-06-15] MEDS: LANSOPRAZOLE SOLUTAB 30 MG TAB PEG SCH (09:53)
[2017-06-15] MEDS: CLOPIDOGREL 75 MG TAB PEG SCH (09:53)
[2017-06-15] MEDS: FLUCONAZOLE 100 MG TAB PO SCH (09:53)
[2017-06-15] MEDS: NYSTATIN SUSP 500,000 U/5 ML CUP SWISH-SWAL SCH ×2 (09:54→13:09)
[2017-06-15] MEDS: LACTIC ACID (AMMONIUM LACTATE) 12% LOTION 225 GM BTL TOPICAL SCH (09:54)
[2017-06-15] MEDS: JUVEN POWDER 1 PACK G-TUBE SCH (09:57)
[2017-06-15] MEDS: RESP: ALBUTEROL 2.5 MG/3 ML NEB (PRN) NEB (14:15)
== END 2017-06-15 15:15 | DRG 689 ==
LOC: NEPE 01:53 → NEDA 05:28 → NEPFCDU 06:47 → N05B 06-02 11:24 → HIMN 06-07 09:50
PROVIDERS: ADMIT Family Medicine; ATTEND Family Medicine
PROC: 0BH18EZ Insertion of Endotracheal Airway into Trachea, Via Natural or Artificial Opening Endoscopic (ICD-10-PCS; principal; 2017-06-07)
PROC: 5A1955Z Respiratory Ventilation, Greater than 96 Consecutive Hours (ICD-10-PCS; 2017-06-07)
PROC: 0BCB8ZZ Extirpation of Matter from Left Lower Lobe Bronchus, Via Natural or Artificial Opening Endoscopic (ICD-10-PCS; 2017-06-07)
PROC: 05HM33Z Insertion of Infusion Device into Right Internal Jugular Vein, Percutaneous Approach (ICD-10-PCS; 2017-06-07)
PROC: 0D20XUZ Change Feeding Device in Upper Intestinal Tract, External Approach (ICD-10-PCS; 2017-06-07)
DX: N39.0 Urinary tract infection, site not specified (principal); J96.01 Acute respiratory failure with hypoxia; J69.0 Pneumonitis due to inhalation of food and vomit; G92 Toxic encephalopathy; L89.154 Pressure ulcer of sacral region, stage 4; E46 Unspecified protein-calorie malnutrition; T17.590A Other foreign object in bronchus causing asphyxiation, initial encounter; G30.9 Alzheimer's disease, unspecified; F02.80 Dementia in other diseases classified elsewhere, unspecified severity, without behavioral disturbance, psychotic disturbance, mood disturbance, and anxiety; B37.0 Candidal stomatitis; Z43.1 Encounter for attention to gastrostomy; B96.20 Unspecified Escherichia coli [E. coli] as the cause of diseases classified elsewhere; Z16.12 Extended spectrum beta lactamase (ESBL) resistance; E78.5 Hyperlipidemia, unspecified; Y95 Nosocomial condition; E89.0 Postprocedural hypothyroidism; F20.9 Schizophrenia, unspecified; I10 Essential (primary) hypertension; F31.9 Bipolar disorder, unspecified; K21.9 Gastro-esophageal reflux disease without esophagitis; K59.00 Constipation, unspecified; B96.5 Pseudomonas (aeruginosa) (mallei) (pseudomallei) as the cause of diseases classified elsewhere; Z51.5 Encounter for palliative care; E83.39 Other disorders of phosphorus metabolism; L89.892 Pressure ulcer of other site, stage 2; Z66 Do not resuscitate; G40.909 Epilepsy, unspecified, not intractable, without status epilepticus; Z87.440 Personal history of urinary (tract) infections; Z86.73 Personal history of transient ischemic attack (TIA), and cerebral infarction without residual deficits; Z88.2 Allergy status to sulfonamides; Z88.8 Allergy status to other drugs, medicaments and biological substances; Z23 Encounter for immunization
CPT/HCPCS: 31500; 31624; 36556; 36600; 71045; 74018; 76937; 80048; 80053; 80164; 80202; 81001; 82140; 82150; 82248; 82533; 82550; 82805; 82947; 82948; 83605; 83690; 83735; 84100; 84134; 84439; 84443; 84481; 84484; 85007; 85025; 85027; 85384; 85610; 85730; 87015; 87040; 87070; 87077; 87086; 87102; 87116; 87186; 87205; 87206; 87641; 88112; 89051; 90686; 94002; 94003; 94640; 94664; 99285; J0692; J1335; J1650; J2185; J2250; J2405; J3010; J3370; J7042; J7050; J7613; Q2038; Q9963

== ENCOUNTER 2017-09-30 08:35 | Emergency (ER) | payer MEDICARE, OTHER ==
[~2017-09-30] VITALS: Ht 167.6 cm; Wt 55.0 kg
[~2017-09-30 08:35] MED LIST changes: -CEFT250S PO; -CITRSOL4 PEG; -ENEMENE5 RECTAL; -METO-309 PEG; -PRAV10TA PEG
[2017-09-30] MEDS ORDERED: DIATRIZOATE MEGLUM/DIATRIZOATE SOD 120 ML BTL (for RAD DIAG) G-TUBE ONE (08:36)
[2017-09-30 08:42] VITALS: BP 133/96; PULSE 83; RESP 20; TEMP 98; O2SAT 93
--- NOTE | 2017-09-30 11:24 | RADRPT ---
EXAM DATE: 09/30/2017 10:42 AM EDT AGE/SEX: 87 years / Female INDICATIONS: G tube placement with 30 cc gastrografin CLINICAL DATA: This is the patient's initial encounter. Patient reports that signs and symptoms have been present for 1 day and indicates a pain score of Nonresponsive. MEDICAL/SURGICAL HISTORY: Hypertension. Gastroesophageal reflux disease. stroke Appendectomy. Hysterectomy. COMPARISON: No prior exams available for comparison. FINDINGS: Contrast injected through the gastrostomy catheter is noted within the distal stomach and small vikki l. No dilated loops of bowel are noted. No gross free air. CONCLUSION: 1. Contrast injected through the gastrostomy catheter is confined to distal stomach and proximal sma ll bowel. Electronically signed by: Nirmal Ponce MD 09/30/2017 11:23 AM EDT
--- NOTE | 2017-09-30 12:11 | PD ---
HPI Chief Complaint: Account Resolution Expert Problem Time Seen by Provider: 09:20 Travel History International Travel<30 days: No Contact w/Intl Traveler<30days: No Traveled to known affect area: No History of Present Illness HPI Patient not stating why she's here. Says words but no coherent sentences. Sent from jail secondary to G-tube being pulled out. PFSH Past Medical History Anemia: Yes Atrial Fibrillation: Yes Blood Disorders: No Bipolar Disorder: Yes High Cholesterol: Yes Cerebrovascular Accident: Yes Coronary Artery Disease: Yes Dementia: Yes Diminished Hearing: Yes ([place]) Deep Vein Thrombosis: Yes Gastrointestinal Disorders: Yes GERD: Yes Glaucoma: No Headaches: No Hepatitis: No Hypertension: Yes Immunizations Current: No Myocardial Infarction: No Schizophrenia: Yes Seizures: Yes Thyroid Disease: Yes PNEUMOCCOCAL Vaccine (Year): 3 ?: Not Menopausal: Yes Past Surgical History Appendectomy: Yes Body Medical Devices: WALKER Cholecystectomy: Yes Hysterectomy: Yes Neurologic Surgery: No Other Surgery: Yes (PARTIAL THROID) Social History Alcohol Use: No Tobacco Use: No Substance Use: No (unable to assess) Allergies-Medications (Allergen,Severity, Reaction): Coded Allergies: Sulfa (Sulfonamide Antibiotics) (Unverified Allergy, Unknown, 09/30/17) celecoxib (Unverified Allergy, Unknown, 09/30/17) haloperidol (Unverified Allergy, Unknown, 09/30/17) risperidone (Unverified Allergy, Unknown, 09/30/17) aspirin (Unverified Adverse Reaction, Intermediate, NOSE BLEEDS, 09/30/17) chlorpromazine (Unverified Adverse Reaction, Intermediate, CRAMPS, 09/30/17 ) *MDRO Multi-Drug Resistant Organism (Verified Adverse Reaction, Unknown, ESBL, 09/30/17) ESBL (urine) 09/05/16, 10/17/16 Reported Meds & Prescriptions Reported Meds & Active Scripts Active Milk of Magnesia Liq (Magnesium Hydroxide) 400 Mg/5 Ml Susp 30 Ml PEG HS PRN Depakote DR (Divalproex Sodium) 250 Mg Tabdr 250 Mg PEG BID Mirtazapine 15 Mg Tab 15 Mg PEG HS Prevacid Solutab ODT (Lansoprazole) 30 Mg Tab 30 Mg PEG DAILY Plavix (Clopidogrel Bisulfate) 75 Mg Tab 75 Mg PEG DAILY Dulcolax Supp (Bisacodyl) 10 Mg Supp 10 Mg RECTAL DAILY PRN 30 Days Albuterol Neb (Albuterol Sulfate) 0.63 Mg/3 Ml Neb 0.63 Mg NEB Q6HR NEB PRN Aldactone (Spironolactone) 25 Mg Tab 25 Mg PEG DAILY Thera/Beta-Carotene (Multiple Vitamin) 1 Tab Tab 1 Tab PEG DAILY Synthroid (Levothyroxine Sodium) 100 Mcg Tab 100 Mcg PEG DAILY@0600 Reported Tylenol (Acetaminophen) 325 Mg Tab 650 Mg PEG Q4H PRN Ascorbic Acid 500 Mg Tab 500 Mg PEG BID Ammonium Lactate (Lactic Acid (Ammonium Lactate)) 12% Lotn 1 Applic TOPICAL BID Apply to whole body every day and evening shift Review of Systems ROS Limitations: Other: (Patient does not speakin coherent sentences) Physical Exam Narrative GENERAL: No acute distress SKIN: Focused skin assessment warm/dry. HEAD: Atraumatic. Normocephalic. EYES: Pupils equal and round. No scleral icterus. No injection or drainage. ENT: No nasal bleeding or discharge. Mucous membranes pink and moist. NECK: Trachea midline. No JVD. CARDIOVASCULAR: Regular rate and rhythm. No murmur appreciated. RESPIRATORY: No accessory muscle use. Clear to auscultation. Breath sounds equal bilaterally. GASTROINTESTINAL: G tube site with drainage, erythema MUSCULOSKELETAL: No obvious deformities. No clubbing. No cyanosis. No edema. NEUROLOGICAL: Awake and alert. No obvious cranial nerve deficits. Motor grossly within normal limits. Normal speech. PSYCHIATRIC: Appropriate mood and affect; insight and judgment normal. Data Data Last Documented VS Vital Signs Date Time Temp Pulse Resp B/P (MAP) Pulse Ox O2 Delivery O2 Flow Rate FiO2 09/30/17 08:42 98.0 83 20 133/96 (108) 93 Nasal Cannula 2.00 Orders Orders Abdomen, Kub Only (09/30/17 ) Ed Discharge Order (09/30/17 12:17) Diatrizoate Nicole (Md Benny iRvera) (09/30/17 08:36) MDM Medical Decision Making Medical Screen Exam Complete: Yes Emergency Medical Condition: Yes Interpretation(s) Last Impressions Abdomen X-Ray 09/30/17 0000 Signed Impressions: CONCLUSION: 1. Contrast injected through the gastrostomy catheter is confined to distal st omach and proximal small bowel. Differential Diagnosis G-tube dislodgment Narrative Course Patient presented to the emergency department with G-tube dislodgment G-tube was replaced and x-ray was shot to confirm placement with Gastrografin. Diagnosis Primary Impression: Dislodged gastrostomy tube Additional Instructions: 1. Followup with primary care doctor. 2. Return to ER as needed. Disposition: 03 DISCHARGE TO SNF Condition: Stable Chiqui Zimmerman MD Sep 30, 2017 12:11
[2017-09-30 13:30] VITALS: BP 132/62; PULSE 76; RESP 21; O2SAT 96
== END 2017-09-30 16:30 ==
LOC: NEPE 08:35
DX: Z43.1 Encounter for attention to gastrostomy (principal)
CPT/HCPCS: 43760; 74018; 99283; Q9963